=== PATIENT | male | born 1960 | race Caucasian/White ===

== ENCOUNTER 2018-05-21 13:32 | Emergency (ER) | payer OTHER ==
--- OUTSIDE RECORDS SUMMARY | 2018-05-21 13:43 | XMS REPORT | Summary of Care ---
:1960 Author Organization [facility] Address [address], [place] [address]- Encounter [facility]ent[employer]_cesar(FIN) [id number] Date(s): 02/12/16 - 03/31/[address] Professional Services provided by [facility] [place] [address]- Discharge Disposition: [facility] Facility Attending Physician: Keyur Pickett DO Admitting Physician: Keyur Pickett DO Vital Signs Most recent to oldest 1 2 3 [Reference Range]: Height 187.96 cm 187.96 cm 187.96 cm (03/02/16 8:27 AM) (03/02/16 3:46 AM) (03/01/16 11:11 PM) Current Weight 90.909 kg 90.909 kg 94.227 kg (03/31/16 5:51 AM) (03/29/16 5:17 AM) (03/16/16 6:29 AM) Temperature Oral 97.6 DegF 98.1 DegF 98.2 DegF [96.4-99.1 DegF] (03/31/16 8:30 AM) (03/31/16 5:53 AM) (03/30/16 7:15 PM) Blood Pressure 133/77 mmHg 133/97 mmHg 154/99 mmHg [90-140/60-90 mmHg] (03/31/16 8:30 AM) (03/31/16 5:53 AM) *HI* (03/30/16 11:54 PM) Respiratory Rate [14-20 20 BRMIN 18 BRMIN 18 BRMIN BRMIN] (03/30/16 11:54 PM) (03/30/16 7:15 PM) (03/30/16 4:15 AM) Peripheral Pulse Rate 87 bpm 85 bpm 86 bpm [60-100 bpm] (03/31/16 8:30 AM) (03/31/16 5:53 AM) (03/30/16 11:54 PM) Weight 100 kg 100 kg (02/12/16 5:11 PM) (02/12/16 11:24 AM) Body Mass Index 28.31 m2 28.31 m2 (02/12/16 5:11 PM) (02/12/16 11:24 AM) Problem List Condition Effective Dates Status Health Status Informant Alcohol abuse(Confirmed) Resolved Traumatic closed fx of eight or more Resolved ribs with minimal displacement(Confirmed) HTN (hypertension)(Confirmed) 2011 Resolved Hepatitis C(Confirmed) Resolved Allergies, Adverse Reactions, Alerts Substance Reaction Severity Status NKDA Active Medications Ancef 2 gm, Route: IVPB, ONCE, Dosing Weight 100, kg, Start date: 03/21/16 17:40:00 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, Duration: 1 dosesor times, Stop date: 03/21/16 17:40:00 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, Surgical Prophylaxis Only; For patients < 120 kg Start Date: 03/21/16 Stop Date: 03/21/16 Status: CompletedAncef 1 gm, Route: IV, ONCE, Dosing Weight 100, kg, Start date: 02/12/16 19:13:00 CDT , Stop date: 02/11/1619:13:00 CDT Start Date: 02/12/16 Stop Date: 02/12/16 Status: CompletedAncef 2 gm, Route: IVPB, ONCE, Dosing Weight 100, kg, Start date: 02/29/16 14:02:00 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, Duration: 1 dosesor times, Stop date: 02/29/16 14:02:00 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, Surgical Prophylaxis Only; For patients < 120 kg Start Date: 02/29/16 Stop Date: 02/29/16 Status: CompletedAncef 2 gm, Route: IVPB, ONCE, Dosing Weight 100, kg, Start date: 02/14/16 7:43:00 CDT , Duration: 1 doses or times, Stop date: 02/14/16 7:43:00 CDT, Surgical Prophylaxis Only; For patients < 120 kg Start Date: 02/14/16 Stop Date: 02/14/16 Status: CompletedAncef 1 gm, Route: IVPB, ONCE, Dosing Weight 100, kg, Start date: 02/14/16 11:42:00 CDT, Duration: 1 dosesor times, Stop date: 02/14/16 11:42:00 CDT, Surgical Prophylaxis Only; For patients < 120 kg Start Date: 02/14/16 Stop Date: 02/14/16 Status: CompletedAncef 2 gm, Route: IVPB, ONCE, Dosing Weight 100, kg, Start date: 02/22/16 10:47:00 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, Duration: 1 dosesor times, Stop date: 02/22/16 10:47:00 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, Surgical Prophylaxis Only; For patients < 120 kg Start Date: 02/22/16 Stop Date: 02/22/16 Status: CompletedAncef 2 gm, Route: IVPB, ONCE, Dosing Weight 100, kg, Start date: 03/06/16 12:12:00 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, Duration: 1 dosesor times, Stop date: 03/06/16 12:12:00 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, Surgical Prophylaxis Only; For patients < 120 kg Start Date: 03/06/16 Stop Date: 03/06/16 Status: CompletedAncef 1 gm, Route: IVPB, ONCE, Dosing Weight 100, kg, Start date: 02/22/16 13:47:00 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, Duration: 1 dosesor times, Stop date: 02/22/16 13:47:00 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, Surgical Prophylaxis Only; For patients < 120 kg Start Date: 02/22/16 Stop Date: 02/22/16 Status: CompletedAncef 2 gm, Route: IVPB, ONCE, Dosing Weight 100, kg, Start date: 03/03/16 8:04:00 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 , Duration: 1 doses or times, Stop date: 03/03/16 8:04:00 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, Surgical Prophylaxis Only; For patients < 120 kg Start Date: 03/03/16 Stop Date: 03/03/16 Status: CompletedANES acetaminophen 1,000 mg, Route: PO, Drug form: TAB, ONCE, Dosing Weight 100, kg, PRN Pain Score 1-3, Start date: 03/06/16 13:12:00 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, Duration: 1 doses or times, Stop date: Limited # of times Start Date: 03/06/16 Stop Date: 03/06/16 Status: DiscontinuedANES Enalaprilat 0.625 mg, 0.5 mL, Route: IVP, Drug form: INJ, Q5Min, Dosing Weight 100, kg, PRN Elevated BP, Start date: 02/13/16 10:06:00 CDT, Duration: 4 doses or times, Stop date: Limited # of times Notes: (Same as: Vasotec-IV) Start Date: 02/13/16 Stop Date: 02/13/16 Status: DiscontinuedANES esmolol 10 mg, 1 mL, Route: IVP, Drug form: INJ, Q5Min, Dosing Weight 100, kg, PRN Other -See Comment, Startdate: 02/13/16 10:06:00 CDT, Duration: 5 doses or times , Stop date: Limited # of times Notes: (Same as: Brevibloc) Start Date: 02/13/16 Stop Date: 02/13/16 Status: DiscontinuedANES flumazenil 0.2 mg, 2 mL, Route: IVP, Drug form: INJ, PRN, Dosing Weight 100, kg, PRN Benzodiazepine Reversal, Initial dose, Start date: 02/14/16 6:40:00 CDT, Duration: 30 day, Stop date: 03/15/16 5:39:00 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 Notes: (Same as: Romazicon) Start Date: 02/14/16 Stop Date: 02/14/16 Status: DiscontinuedANES flumazenil 0.2 mg, 2 mL, Route: IVP, Drug form: INJ, PRN, Dosing Weight 100, kg, PRN Benzodiazepine Reversal, Initial dose, Start date: 02/13/16 10:06:00 CDT, Duration: 30 day, Stop date: 03/14/16 9:05:00 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 Notes: (Same as: Romazicon) Start Date: 02/13/16 Stop Date: 02/13/16 Status: DiscontinuedANES flumazenil 0.2 mg, Route: IVP, PRN, Dosing Weight 100, kg, PRN Benzodiazepine Reversal, Initial dose, Start date: 03/14/16 8:36:00 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, Duration: 30 day, Stop date: 8:35:00 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 Start Date: 03/14/16 Stop Date: 03/14/16 Status: DiscontinuedANES flumazenil 0.2 mg, 2 mL, Route: IVP, Drug form: INJ, PRN, Dosing Weight 100, kg, PRN Benzodiazepine Reversal, Initial dose, Start date: 03/03/16 8:42:00 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, Duration: 30 day, Stop date: 04/02/16 8:41:00 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 Notes: (Same as: Romazicon) Start Date: 03/03/16 Stop Date: 03/03/16 Status: DiscontinuedANES flumazenil 0.2 mg, Route: IVP, PRN, Dosing Weight 100, kg, PRN Benzodiazepine Reversal, Initial dose, Start date: 03/06/16 13:12:00 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, Duration: 30 day, Stop date: 13:11:00 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 Start Date: 03/06/16 Stop Date: 03/06/16 Status: DiscontinuedANES flumazenil 0.2 mg, 2 mL, Route: IVP, Drug form: INJ, PRN, Dosing Weight 100, kg, PRN Benzodiazepine Reversal, Initial dose, Start date: 03/21/16 17:21:00 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, Duration: 30 day, Stop date: 04/20/16 17:20:00 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 Notes: (Same as: Romazicon) Start Date: 03/21/16 Stop Date: 03/21/16 Status: DiscontinuedANES flumazenil 0.2 mg, Route: IVP, PRN, Dosing Weight 100, kg, PRN Benzodiazepine Reversal, Initial dose, Start date: 03/11/16 18:08:00 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, Duration: 30 day, Stop date: 18:07:00 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 Start Date: 03/11/16 Stop Date: 03/11/16 Status: DiscontinuedANES flumazenil 0.2 mg, 2 mL, Route: IVP, Drug form: INJ, PRN, Dosing Weight 100, kg, PRN Benzodiazepine Reversal, Initial dose, Start date: 03/08/16 14:29:00 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, Duration: 30 day, Stop date: 04/07/16 14:28:00 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 Notes: (Same as: Romazicon) Start Date: 03/08/16 Stop Date: 03/08/16 Status: DiscontinuedANES hydrALAZINE 10 mg, 0.5 mL, Route: IVP, Drug form: INJ, Q20Min, Dosing Weight 100, kg, PRN Elevated BP, Start date: 02/14/16 6:40:00 CDT, Duration: 2 doses or times, Stop date: 02/15/16 0:00:00 CDT Notes: (Same as: Apresoline)Push over 5 minutes Start Date: 02/14/16 Stop Date: 02/14/16 Status: DiscontinuedANES hydrALAZINE 10 mg, 0.5 mL, Route: IVP, Drug form: INJ, Q20Min, Dosing Weight 100, kg, PRN Elevated BP, Start date: 02/13/16 10:06:00 CDT, Duration: 2 doses or times, Stop date: Limited # of times Notes: (Same as: Apresoline)Push over 5 minutes Start Date: 02/13/16 Stop Date: 02/13/16 Status: DiscontinuedANES hydrALAZINE 10 mg, 0.5 mL, Route: IVP, Drug form: INJ, Q20Min, Dosing Weight 100, kg, PRN Elevated BP, Start date: 03/03/16 8:42:00 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, Duration: 2 doses or times, Stop date: 03/04/16 0:00:00 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 Notes: (Same as: Apresoline)Push over 5 minutes Start Date: 03/03/16 Stop Date: 03/03/16 Status: DiscontinuedANES hydrALAZINE 10 mg, 0.5 mL, Route: IVP, Drug form: INJ, Q20Min, Dosing Weight 100, kg, PRN Elevated BP, Start date: 03/21/16 17:21:00 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, Duration: 2 doses or times, Stop date: Limited # of times Notes: (Same as: Apresoline)Push over 5 minutes Start Date: 03/21/16 Stop Date: 03/21/16 Status: DiscontinuedANES HYDROmorphone 0.5 mg, 0.25 mL, Route: IVP, Drug form: INJ, Q5Min, Dosing Weight 100, kg, PRN Pain Score 7-10, Start date: 02/14/16 6:40:00 CDT, Duration: 4 doses or times, Stop date: 02/15/16 0:00:00 CDT Notes: Same as Dilaudid Start Date: 02/14/16 Stop Date: 02/14/16 Status: DiscontinuedANES HYDROmorphone 0.5 mg, 0.25 mL, Route: IVP, Drug form: INJ, Q10Min, Dosing Weight 100, kg, PRN Pain Score 7-10, Start date: 02/13/16 10:06:00 CDT, Duration: 2 doses or times, Stop date: 02/14/16 0:00:00 CDT Notes: Same as Dilaudid Start Date: 02/13/16 Stop Date: 02/13/16 Status: CompletedANES HYDROmorphone 0.5 mg, Route: IVP, Q5Min, Dosing Weight 100, kg, PRN Pain Score 7-10, Start date: 03/14/16 8:36:00 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, Duration: 4 doses or times, Stop date: Limited # of times Start Date: 03/14/16 Stop Date: 03/14/16 Status: DiscontinuedANES HYDROmorphone 0.5 mg, 0.25 mL, Route: IVP, Drug form: INJ, Q5Min, Dosing Weight 100, kg, PRN Pain Score 7-10, Start date: 03/03/16 8:42:00 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, Duration: 4 doses or times, Stop date: 03/04/16 0:00:00 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 Notes: Same as Dilaudid Start Date: 03/03/16 Stop Date: 03/03/16 Status: DiscontinuedANES HYDROmorphone 0.5 mg, 0.25 mL, Route: IVP, Drug form: INJ, Q5Min, Dosing Weight 100, kg, PRN Pain Score 7-10, Start date: 03/21/16 17:21:00 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, Duration: 4 doses or times, Stop date: Limited # of times Notes: Same as Dilaudid Start Date: 03/21/16 Stop Date: 03/21/16 Status: DiscontinuedANES HYDROmorphone 0.5 mg, Route: IVP, Q5Min, Dosing Weight 100, kg, PRN Pain Score 7-10, Start date: 03/11/16 18:08:00CST, Duration: 4 doses or times, Stop date: Limited # of times Start Date: 03/11/16 Stop Date: 03/11/16 Status: DiscontinuedANES HYDROmorphone 0.5 mg, 0.25 mL, Route: IVP, Drug form: INJ, Q5Min, Dosing Weight 100, kg, PRN Pain Score 7-10, Start date: 03/08/16 14:29:00 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, Duration: 4 doses or times, Stop date: Limited # of times Notes: Same as Dilaudid Start Date: 03/08/16 Stop Date: 03/08/16 Status: DiscontinuedANES HYDROmorphone 0.5 mg, 0.25 mL, Route: IVP, Drug form: INJ, Q5Min, Dosing Weight 100, kg, PRN Pain Score 7-10, Start date: 02/14/16 10:00:00 CDT, Duration: 4 doses or times, Stop date: 02/15/16 0:00:00 CDT Notes: Same as Dilaudid Start Date: 02/14/16 Stop Date: 02/14/16 Status: DiscontinuedANES labetalol 10 mg, 2 mL, Route: IVP, Drug form: INJ, Q5Min, Dosing Weight 100, kg, PRN Elevated BP, Start date: 02/14/16 6:40:00 CDT, Duration: 5 doses or times, Stop date: 02/15/16 0:00:00 CDT Start Date: 02/14/16 Stop Date: 02/14/16 Status: DiscontinuedANES labetalol 10 mg, 2 mL, Route: IVP, Drug form: INJ, Q5Min, Dosing Weight 100, kg, PRN Elevated BP, Start date: 02/13/16 10:06:00 CDT, Duration: 5 doses or times, Stop date: Limited # of times Start Date: 02/13/16 Stop Date: 02/13/16 Status: DiscontinuedANES labetalol 10 mg, 2 mL, Route: IVP, Drug form: INJ, Q5Min, Dosing Weight 100, kg, PRN Elevated BP, Start date: 03/03/16 8:42:00 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, Duration: 5 doses or times, Stop date: 03/04/16 0:00:00 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 Start Date: 03/03/16 Stop Date: 03/03/16 Status: DiscontinuedANES labetalol 10 mg, 2 mL, Route: IVP, Drug form: INJ, Q5Min, Dosing Weight 100, kg, PRN Elevated BP, Start date: 03/21/16 17:21:00 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, Duration: 5 doses or times, Stop date: Limited # of times Start Date: 03/21/16 Stop Date: 03/21/16 Status: DiscontinuedANES metoprolol 1 mg, 1 mL, Route: IVP, Drug form: INJ, Q5Min, Dosing Weight 100, kg, PRN Other -See Comment, Start date: 02/13/16 10:06:00 CDT, Duration: 5 doses or times, Stop date: Limited # of times Notes: (Same as: Lopressor)Push over 2 minutes Start Date: 02/13/16 Stop Date: 02/13/16 Status: DiscontinuedANES morphine Sulfate 2 mg, 0.5 mL, Route: IVP, Drug form: SOLN, Q5Min, Dosing Weight 100, kg, PRN Pain Score 4-6, Start date: 03/03/16 8:42:00 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, Duration: 5 doses or times, Stop date: 03/04/16 0:00:00 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 Notes: (Same as:MORPhine Sulfate) Start Date: 03/03/16 Stop Date: 03/03/16 Status: DiscontinuedANES naloxone 0.4 mg, 1 mL, Route: IVP, Drug form: INJ, Q2MIN, Dosing Weight 100, kg, PRN Narcotic Reversal, Startdate: 02/14/16 6:40:00 CDT, Duration: 8 doses or times, Stop date: 02/15/16 0:00:00 CDT Notes: Same as Narcan Start Date: 02/14/16 Stop Date: 02/14/16 Status: DiscontinuedANES naloxone 0.4 mg, 1 mL, Route: IVP, Drug form: INJ, Q2MIN, Dosing Weight 100, kg, PRN Narcotic Reversal, Startdate: 02/13/16 10:06:00 CDT, Duration: 8 doses or times , Stop date: Limited # of times Notes: Same as Narcan Start Date: 02/13/16 Stop Date: 02/13/16 Status: DiscontinuedANES naloxone 0.4 mg, Route: IVP, Q2MIN, Dosing Weight 100, kg, PRN Narcotic Reversal, Start date: 03/14/16 8:36:00 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, Duration: 8 doses or times, Stop date: Limited # of times Start Date: 03/14/16 Stop Date: 03/14/16 Status: DiscontinuedANES naloxone 0.4 mg, 1 mL, Route: IVP, Drug form: INJ, Q2MIN, Dosing Weight 100, kg, PRN Narcotic Reversal, Startdate: 03/03/16 8:42:00 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, Duration: 8 doses or times, Stop date: 03/04/16 0:00:00 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 Notes: Same as Narcan Start Date: 03/03/16 Stop Date: 03/03/16 Status: DiscontinuedANES naloxone 0.4 mg, Route: IVP, Q2MIN, Dosing Weight 100, kg, PRN Narcotic Reversal, Start date: 03/06/16 13:12:00 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, Duration: 8 doses or times, Stop date: Limited # of times Start Date: 03/06/16 Stop Date: 03/06/16 Status: DiscontinuedANES naloxone 0.4 mg, 1 mL, Route: IVP, Drug form: INJ, Q2MIN, Dosing Weight 100, kg, PRN Narcotic Reversal, Startdate: 03/21/16 17:21:00 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, Duration: 8 doses or times , Stop date: Limited # of times Notes: Same as Narcan Start Date: 03/21/16 Stop Date: 03/21/16 Status: DiscontinuedANES naloxone 0.4 mg, Route: IVP, Q2MIN, Dosing Weight 100, kg, PRN Narcotic Reversal, Start date: 03/11/16 18:08:00 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, Duration: 8 doses or times, Stop date: Limited # of times Start Date: 03/11/16 Stop Date: 03/11/16 Status: DiscontinuedANES naloxone 0.4 mg, 1 mL, Route: IVP, Drug form: INJ, Q2MIN, Dosing Weight 100, kg, PRN Narcotic Reversal, Startdate: 03/08/16 14:29:00 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, Duration: 8 doses or times , Stop date: Limited # of times Notes: Same as Narcan Start Date: 03/08/16 Stop Date: 03/08/16 Status: DiscontinuedANES ondansetron 4 mg, 2 mL, Route: IVP, Drug form: INJ, ONCE, Dosing Weight 100, kg, PRN Nausea & Vomiting, Start date: 02/14/16 6:40:00 CDT Notes: (Same as: Martinez) MEDICATION WASTE Product Size: 4 mgProduct Wasted: ___ mg Start Date: 02/14/16 Stop Date: 02/14/16 Status: DiscontinuedANES ondansetron 4 mg, 2 mL, Route: IVP, Drug form: INJ, ONCE, Dosing Weight 100, kg, PRN Nausea & Vomiting, Start date: 02/13/16 10:06:00 CDT Notes: (Same as: Martinez) MEDICATION WASTE Product Size: 4 mgProduct Wasted: _0_ mg Start Date: 02/13/16 Stop Date: 02/13/16 Status: DiscontinuedANES ondansetron 4 mg, Route: IVP, ONCE, Dosing Weight 100, kg, PRN Nausea & Vomiting, Start date: 03/14/16 8:36:00 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 Start Date: 03/14/16 Stop Date: 03/14/16 Status: DiscontinuedANES ondansetron 4 mg, Route: IVP, ONCE, Dosing Weight 100, kg, PRN Nausea & Vomiting, Start date: 03/06/16 13:12:00 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 Start Date: 03/06/16 Stop Date: 03/06/16 Status: DiscontinuedANES ondansetron 4 mg, 2 mL, Route: IVP, Drug form: INJ, ONCE, Dosing Weight 100, kg, PRN Nausea & Vomiting, Start date: 03/03/16 8:42:00 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 Notes: (Same as: Martinez) MEDICATION WASTE Product Size: 4 mgProduct Wasted: ___ mg Start Date: 03/03/16 Stop Date: 03/03/16 Status: DiscontinuedANES ondansetron 4 mg, 2 mL, Route: IVP, Drug form: INJ, ONCE, Dosing Weight 100, kg, PRN Nausea & Vomiting, Start date: 03/21/16 17:21:00 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 Notes: (Same as: Martinez) MEDICATION WASTE Product Size: 4 mgProduct Wasted: ___ mg Start Date: 03/21/16 Stop Date: 03/21/16 Status: DiscontinuedANES ondansetron 4 mg, Route: IVP, ONCE, Dosing Weight 100, kg, PRN Nausea & Vomiting, Start date: 03/11/16 18:08:00 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 Start Date: 03/11/16 Stop Date: 03/11/16 Status: DiscontinuedANES ondansetron 4 mg, 2 mL, Route: IVP, Drug form: INJ, ONCE, Dosing Weight 100, kg, PRN Nausea & Vomiting, Start date: 03/08/16 14:29:00 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 Notes: (Same as: Zofran) MEDICATION WASTE Product Size: 4 mgProduct Wasted: ___ mg Start Date: 03/08/16 Stop Date: 03/08/16 Status: DiscontinuedANES ondansetron 4 mg, 2 mL, Route: IVP, Drug form: INJ, ONCE, Dosing Weight 100, kg, PRN Nausea & Vomiting, Start date: 02/14/16 10:00:00 CDT Notes: (Same as: Zofran) MEDICATION WASTE Product Size: 4 mgProduct Wasted: ___ mg Start Date: 02/14/16 Stop Date: 02/14/16 Status: DiscontinuedANES oxyCODONE 5 mg, 1 tab, Route: PO, Drug form: TAB, Q4H, Dosing Weight 100, kg, PRN Pain Score 4-6, Start date: 02/14/16 6:40:00 CDT, Duration: 30 day, Stop date: 6:39:00 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 Notes: (Same as: Roxicodone) Start Date: 02/14/16 Stop Date: 02/14/16 Status: DiscontinuedANES oxyCODONE 5 mg, 1 tab, Route: PO, Drug form: TAB, Q4H, Dosing Weight 100, kg, PRN Pain Score 4-6, Start date: 03/21/16 17:21:00 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, Duration: 30 day, Stop date: 04/20 17:20:00 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 Notes: (Same as: Roxicodone) Start Date: 03/21/16 Stop Date: 03/21/16 Status: DiscontinuedANES oxyCODONE 5 mg, 1 tab, Route: PO, Drug form: TAB, Q4H, Dosing Weight 100, kg, PRN Pain Score 4-6, Start date: 02/14/16 10:00:00 CDT, Duration: 1 day, Stop date: 9:59:00 CDT Notes: (Same as: Roxicodone) Start Date: 02/14/16 Stop Date: 02/14/16 Status: DiscontinuedAtivan 4 mg, 2 mL, Route: IVP, Drug form: INJ, ONCE, Dosing Weight 100, kg, Start date : 02/14/16 19:02:00 CDT, Stop date: 02/14/16 19:02:00 CDT Notes: (Same as: Ativan) Start Date: 02/14/16 Stop Date: 02/14/16 Status: DiscontinuedAtivan 2 mg, 1 mL, Route: IVP, Drug form: INJ, Q4H, Dosing Weight 100, kg, PRN Agitation, Start date: 02/17/16 9:44:00 CDT, Duration: 30 day, Stop date: 9:43:00 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 Notes: (Same as: Ativan) Start Date: 02/17/16 Stop Date: 02/20/16 Status: DiscontinuedAtivan 2 mg, 1 mL, Route: IVP, Drug form: INJ, Q15Min, Dosing Weight 100, kg, PRN Agitation, Start date: 02/14/16 23:50:00 CDT, Duration: 30 day, Stop date: 03/15 22:49:00 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 Notes: (Same as: Ativan) Start Date: 02/14/16 Stop Date: 02/17/16 Status: DiscontinuedAtivan 2 mg, 1 mL, Route: IVP, Drug form: INJ, Q3H, Dosing Weight 100, kg, PRN Anxiety , Start date: 02/13/16 9:58:00 CDT, Duration: 30 day, Stop date: 03/14/16 9:57: 00 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 Notes: (Same as: Ativan) Start Date: 02/13/16 Stop Date: 02/14/16 Status: DiscontinuedBenadryl 25 mg, 0.5 mL, Route: IVP, Drug form: INJ, ONCE, Dosing Weight 100, kg, PRN Insomnia, Start date: 02/26/16 23:08:00 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 Notes: (Same as: Benadryl) Start Date: 02/26/16 Stop Date: 02/26/16 Status: CompletedBenadryl 50 mg, 1 mL, Route: IV, Drug form: INJ, ONCE, Dosing Weight 100, kg, PRN Agitation, Start date: 03/01/16 11:49:00 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 Notes: (Same as: Benadryl) Start Date: 03/01/16 Stop Date: 03/01/16 Status: CompletedBenadryl 25 mg, 1 cap, Route: PO, Drug form: CAP, Bedtime, Dosing Weight 100, kg, PRN Insomnia, Start date: 02/26/16 23:08:00 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, Duration: 30 day, Stop date: 23:07:00 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 Notes: (Same as: Benadryl) Start Date: 02/26/16 Stop Date: 02/28/16 Status: Discontinuedbisacodyl 10 mg, 1 supp, Route: MD, Drug form: SUPP, Daily, Dosing Weight 100, kg, PRN Constipation, Start date: 02/22/16 8:18:00 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, Duration: 30 day, Stop date: 11/29 8:17:00 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 Notes: (Same As: Dulcolax, Bisco-Lax) Start Date: 02/22/16 Stop Date: 03/02/16 Status: Discontinuedbisacodyl 10 mg, 1 supp, Route: MD, Drug form: SUPP, ONCE, Dosing Weight 100, kg, Start date: 02/16/16 7:46:00CDT, Stop date: 02/16/16 7:46:00 CDT Notes: (Same As: Dulcolax, Bisco-Lax) Start Date: 02/16/16 Stop Date: 02/16/16 Status: Completedcalcium carbonate 500 mg, 1 tab, Route: NG, Drug form: CHEWTAB, ONCE, Dosing Weight 100, kg, Start date: 02/17/16 11:18:00 CDT, Stop date: 02/17/16 11:18:00 CDT Notes: (Same As: Pina)Calcium Carbonate 500 tk=083 mg elemental calcium Dose=_ mg calcium carbonate ( mg elemental calcium) Start Date: 02/17/16 Stop Date: 02/17/16 Status: Completedcalcium chloride + sodium chloride 0.9% INJ 100 mL 2,000 mg, 20 mL, Route: IVPB, ONCE, Dosing Weight 100, kg, Start date: 02/13/16 2:32:00 CDT, Stop date: 02/13/16 2:32:00 CDT Notes: WASTE: F/P - Sink; E - Municipal Trash Bin Start Date: 02/13/16 Stop Date: 02/13/16 Status: CompletedceFAZolin (SCIP) 2 gm, Route: IVPB, Drug form: INJ, ONCE, Dosing Weight 100, kg, Start date: 06/29 7:58:00 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, Stop date: 03/18/16 7:58:00 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 Start Date: 03/18/16 Stop Date: 03/18/16 Status: CompletedcefTAZidime 1 gm, Route: IVPB, Drug form: PDR/INJ, ABXQ6H, Dosing Weight 100, kg, Start date : 02/23/16 10:00:00 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, Stop date: 03/01/16 10:00:00 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 Notes: (Same as: Gino) MEDICATION WASTE Product Size: 1000 mgProduct Wasted: _0_ mg Start Date: 02/23/16 Stop Date: 03/01/16 Status: CompletedcloNIDine 0.1 mg, 1 tab, Route: PO, Drug form: TAB, Q4H, Dosing Weight 100, kg, Start date : 02/15/16 9:00:00 CDT, Duration: 30 day, Stop date: 03/16/16 8:00:00 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 Notes: (Same As: Cataprpaz) Start Date: 02/15/16 Stop Date: 02/16/16 Status: DiscontinuedcloNIDine 0.3 mg, 1 tab, Route: PO, Drug form: TAB, Q8H, Dosing Weight 100, kg, Start date : 02/16/16 16:00:00 CDT, Stop date: 03/17/16 8:00:00 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 Notes: (Same As: Catapres) Start Date: 02/16/16 Stop Date: 02/20/16 Status: DiscontinuedcloNIDine 0.1 mg oral tablet 0.1 mg, 1 tab, Route: PO, Drug form: TAB, Q8H-05, Dosing Weight 100, kg, Start date: 03/12/16 16:00:00 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, Stop date: 04/11/16 5:00:00 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 Notes: (Same As: [facility]) Start Date: 03/12/16 Stop Date: 03/28/16 Status: DiscontinuedcloNIDine 0.1 mg oral tablet 0.1 mg, 1 tab, Route: PO, Drug form: TAB, Q12H, Dosing Weight 100, kg, Start date: 03/28/16 21:00:00CST, Stop date: 04/27/16 9:00:00 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 Notes: (Same As: [facility]) Start Date: 03/28/16 Stop Date: 03/29/16 Status: DiscontinuedcloNIDine 0.2 mg oral tablet 0.3 mg, 1 tab, Route: PO, Drug form: TAB, Q8H, Dosing Weight 100, kg, Start date : 02/24/16 0:00:00 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, Duration: 30 day, Stop date: 03/24/16 16:00:00 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 Notes: (Same As: [facility]) Start Date: 02/24/16 Stop Date: 02/24/16 Status: DiscontinuedcloNIDine 0.2 mg oral tablet 0.2 mg, 1 tab, Route: PO, Drug form: TAB, Q8H, Dosing Weight 100, kg, Start date : 02/22/16 8:15:00 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, Duration: 30 day, Stop date: 03/23/16 8:00:00 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 Notes: (Same As: [facility]) Start Date: 02/22/16 Stop Date: 02/23/16 Status: DiscontinuedcloNIDine 0.3 mg oral tablet 0.3 mg, 1 tab, Route: PO, Drug form: TAB, Q6H, Dosing Weight 100, kg, Start date : 02/24/16 12:00:00 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, Duration: 30 day, Stop date: 03/25/16 6:00:00 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 Notes: (Same As: [employer]) Start Date: 02/24/16 Stop Date: 02/29/16 Status: DiscontinuedcloNIDine 0.3 mg oral tablet 0.3 mg, 1 tab, Route: PO, Drug form: TAB, Q8H, Dosing Weight 100, kg, Start date : 02/29/16 16:00:00 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, Duration: 30 day, Stop date: 03/30/16 8:00:00 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 Notes: (Same As: [facility]) Start Date: 02/29/16 Stop Date: 03/12/16 Status: DiscontinuedcloNIDine 0.3 mg oral tablet 0.2 mg, Route: PO, Drug form: TAB, Q8H, Dosing Weight 100, kg, Start date: 02/19 9:00:00 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, Duration: 30 day, Stop date: 03/21/16 8:00:00 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 Notes: (Same As: [facility]) Start Date: 02/20/16 Stop Date: 02/22/16 Status: DiscontinuedDakins Solution 1 appl, Route: TOP, Daily, Drug form: SOLN, Start date: 02/29/16 9:00:00 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, Duration: 30 day, Stopdate: 03/29/16 9:00:00 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 Notes: (Dakin's (0.125%=1/4 strength) 473ml top SOLN) For external use only. Note: quarter strength=0.125% sodium hypochlorite. Start Date: 02/29/16 Stop Date: 03/20/16 Status: DiscontinuedDextrose 50% Syringe 12.5 gm, 25 mL, Route: IVP, Drug Form: INJ, Dosing Weight 100, kg, PRN, PRN Abnormal Lab Result, Start date: 02/15/16 2:40:00 CDT, Duration: 30 day, Stop date: 03/16/16 1:39:00 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, For FSBG 40 mg/dL -60 mg/dL Start Date: 02/15/16 Stop Date: 02/16/16 Status: DiscontinuedDextrose 50% Syringe 25 gm, 50 mL, Route: IVP, Drug Form: INJ, Dosing Weight 100, kg, PRN, PRN Abnormal Lab Result, Startdate: 02/15/16 2:40:00 CDT, Duration: 30 day, Stop date: 03/16/16 1:39:00 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, For FSBG < 40 mg/dL Start Date: 02/15/16 Stop Date: 02/16/16 Status: DiscontinuedDextrose 50% Syringe 12.5 gm, 25 mL, Route: IVP, Drug Form: INJ, Dosing Weight 100, kg, PRN, PRN Abnormal Lab Result, Start date: 02/22/16 17:02:00 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, Duration: 30 day, Stop date: 03/23/16 17:01:00 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, For FSBG 40 mg/dL- 60 mg/dL Start Date: 02/22/16 Stop Date: 02/23/16 Status: DiscontinuedDextrose 50% Syringe 25 gm, 50 mL, Route: IVP, Drug Form: INJ, Dosing Weight 100, kg, PRN, PRN Abnormal Lab Result, Startdate: 02/22/16 17:02:00 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, Duration: 30 day, Stop date: 03/23/16 17:01:00 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, For FSBG < 40 mg/dL Start Date: 02/22/16 Stop Date: 02/23/16 Status: Discontinueddiazepam 10 mg, 2 mL, Route: IVP, Drug form: INJ, Q10Min, Dosing Weight 100, kg, PRN Agitation, Start date: 02/23/16 14:11:00 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, Duration: 30 day, Stop date: 03/24 14:10:00 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 Notes: (Same as: Valium)WASTE: F/P - Black; E - White/Blue Start Date: 02/23/16 Stop Date: 02/24/16 Status: Discontinueddiazepam 10 mg, Route: IVP, Drug form: INJ, Q10Min, Dosing Weight 100, kg, PRN Anxiety, Start date: 02/23/16 14:10:00 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, Duration: 30 day, Stop date: 03/24/16 14:09: 00 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 Start Date: 02/23/16 Stop Date: 02/23/16 Status: DiscontinuedDilaudid 0.5 mg, 0.25 mL, Route: IVP, Drug form: INJ, ONCE, Dosing Weight 100, kg, Priority: STAT, Start date: 02/13/16 16:26:00 CDT, Stop date: 02/13/16 16:26:00 CDT Notes: Same as Dilaudid Start Date: 02/13/16 Stop Date: 02/13/16 Status: CompletedDilaudid 0.5 mg, 0.25 mL, Route: IVP, Drug form: INJ, Q5Min, Dosing Weight 100, kg, PRN Pain Score 7-10, Start date: 03/18/16 9:21:00 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, Duration: 4 doses or times, Stop date: Limited # of times Notes: Same as Dilaudid Start Date: 03/18/16 Stop Date: 03/18/16 Status: DiscontinuedDilaudid 1 mg, Route: IVP, ONCE, Dosing Weight 100, kg, Priority: STAT, Start date: 02/11 16:15:00 CDT, Stop date: 02/12/16 16:15:00 CDT Start Date: 02/12/16 Stop Date: 02/12/16 Status: CompletedDilaudid 0.5 mg, 0.25 mL, Route: IVP, Drug form: INJ, ONCE, Dosing Weight 100, kg, for wound vac change.thanks, Priority: STAT, Start date: 03/27/16 15:27:00 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, Stop date: 03/27/16 15:27:00 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 Notes: Same as Dilaudid Start Date: 03/27/16 Stop Date: 03/27/16 Status: CompletedDilaudid 0.5 mg, 0.25 mL, Route: IVP, Drug form: INJ, ONCE, Dosing Weight 100, kg, Priority: STAT, Start date: 02/12/16 21:32:00 CDT, Stop date: 02/12/16 21:32:00 CDT Notes: (Same as: Dilaudid) Start Date: 02/12/16 Stop Date: 02/12/16 Status: CompletedDilaudid 1 mg, 0.5 mL, Route: IVP, Drug form: INJ, ONCE, Dosing Weight 100, kg, Priority : STAT, Start date: 02/12/16 19:14:00 CDT, Stop date: 02/12/16 19:14:00 CDT Notes: Same as Dilaudid Start Date: 02/12/16 Stop Date: 02/12/16 Status: CompletedDilaudid 0.5 mg, Route: IVP, ONCE, Dosing Weight 100, kg, Priority: STAT, Start date: 14:45:00 CDT, Stop date: 02/12/16 14:45:00 CDT Start Date: 02/12/16 Stop Date: 02/12/16 Status: CompletedDilaudid 0.5 mg, 0.25 mL, Route: IV, Drug form: INJ, ONCE, Dosing Weight 100, kg, Start date: 03/24/16 12:11:00 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, Stop date: 03/24/16 12:11:00 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 Notes: Same as Dilaudid Start Date: 03/24/16 Stop Date: 03/24/16 Status: Completeddocusate 100 mg, 1 cap, Route: PO, Drug form: CAP, Daily, Dosing Weight 100, kg, Start date: 03/20/16 9:00:00CST, Duration: 30 day, Stop date: 04/18/16 9:00:00 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 Notes: (Same as: Colace) (Do Not Crush) Start Date: 03/20/16 Stop Date: 03/31/16 Status: Discontinueddocusate 100 mg, 10 mL, Route: PO, Drug form: LIQ, Q12H, Dosing Weight 100, kg, Start date: 02/23/16 21:00:00CST, Duration: 30 day, Stop date: 03/24/16 9:00:00 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 Notes: (Same as: Colace) Start Date: 02/23/16 Stop Date: 02/29/16 Status: Discontinueddocusate 100 mg, 10 mL, Route: PO, Drug form: LIQ, Daily, Dosing Weight 100, kg, Start date: 03/01/16 9:00:00CST, Duration: 30 day, Stop date: 03/30/16 9:00:00 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 Notes: (Same as: Colace) Start Date: 03/01/16 Stop Date: 03/02/16 Status: Discontinueddocusate sodium 100 mg oral capsule 100 mg, 1 cap, Route: PO, Drug form: CAP, BID, Dosing Weight 100, kg, Start date : 02/12/16 17:00:00 CDT, Duration: 30 day, Stop date: 03/13/16 9:00:00 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 Notes: (Same as: Colace) (Do Not Crush) Start Date: 02/12/16 Stop Date: 02/23/16 Status: Discontinueddocusate sodium 100 mg oral capsule 100 mg=1 cap, PO, Daily, 0 Refill(s) Start Date: 03/31/16 Status: SuspendedElectrolyte Solution 1000 mL 1,000 mL, Rate: 100 ml/hr, Infuse over: 10 hr, Route: IV, Dosing Weight 100 kg, Total Volume: 1,000,Start date: 03/14/16 0:19:00 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, Duration: 30 day, Stop date: 04/13/16 0:18:00 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 Start Date: 03/14/16 Stop Date: 03/14/16 Status: Discontinuedenoxaparin 40 mg/0.4 mL subcutaneous solution 40 mg=0.4 mL, SUB-Q, [id number], 0 Refill(s) Start Date: 03/31/16 Status: SuspendedExparel 20 mL, Route: InFILtration(local), Drug Form: INJ, Dosing Weight 100, kg, ONCE, Start date: 167:25:00 CDT, Stop date: 02/14/16 7:25:00 CDT Notes: (Same as: Exparel) NOT FOR IV use Postoperative analgesia: Infiltration (local): Dose is based on surgical site and volume required to cover the area (in general, the maximum total dose is 266 mg).Bunionectomy: 7 mL into the tissues surrounding the osteotomy and 1 mL into the subcutaneous tissue of the surgical site (total dose=8 mL [106 mg])Hemorrhoidectomy: 30 mL ( 20 mL vial diluted with 10 mL NS) divided and administered as 6 injections of 5 mL each (total dose=30 mL [266 mg]) Start Date: 02/14/16 Stop Date: 02/14/16 Status: CompletedfentaNYL 50 microgram, 1 mL, Route: IV, Drug form: INJ, ONCE, Dosing Weight 100, kg, PRN Pain Score 7-10, Start date: 02/29/16 20:34:00 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, Pediatric Dosing; For procedure; > 50 kg Notes: (Same as: Sublimaze) Preservative free. Start Date: 02/29/16 Stop Date: 03/01/16 Status: CompletedfentaNYL 50 microgram, Route: IV, ONCE, Dosing Weight 100, kg, Start date: 03/01/16 11:15 :00 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, Stop date: 03/01/16 11:15:00 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 Start Date: 03/01/16 Stop Date: 03/01/16 Status: CompletedfentaNYL 50 microgram, Route: IV, ONCE, Dosing Weight 100, kg, Start date: 02/12/16 19:14 :00 CDT, Stop date: 02/12/16 19:14:00 CDT Start Date: 02/12/16 Stop Date: 02/12/16 Status: CompletedfentaNYL 100 microgram, Route: IV, ONCE, Dosing Weight 100, kg, Start date: 02/12/16 19: 13:00 CDT, Stop date:02/12/16 19:13:00 CDT Start Date: 02/12/16 Stop Date: 02/12/16 Status: CompletedfentaNYL 50 microgram, 1 mL, Route: IV, Drug form: INJ, PRN, Dosing Weight 100, kg, PRN Pain Score 7-10, Post-Op PACU, Start date: 03/11/16 18:08:00 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, Duration: 30 day, Stop date: 04/10/16 18:07:00 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, Pediatric Dosing; For procedure; > 50 kg Notes: (Same as: Sublimaze) Preservative free. Start Date: 03/11/16 Stop Date: 03/11/16 Status: DiscontinuedfentaNYL 1000microgram/20ml drip (pyxis) 1,000 microgram 1,000 microgram, 20 mL, Rate: Titrate, Start Dose: 50 microgram/hr, Titration: Titrate by 25 micrograms/hour every 15 minutes, Goal(s): RASS 0, Max Dose: 300 mcg/hr, Route: IV, Dosing Weight 100 kg, Total Volume: 20, Start date: 02/22/16 17:02:00 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,... Start Date: 02/22/16 Stop Date: 02/23/16 Status: DiscontinuedfentaNYL 1000microgram/20ml drip (pyxis) 1,000 microgram 1,000 microgram, 20 mL, Rate: Titrate, Start Dose: 50 microgram/hr, Titration: Titrate by 25 micrograms/hour every 15 minutes, Goal(s): RASS 0, Max Dose: 300 mcg/hr, Route: IV, Dosing Weight 100 kg, Total Volume: 20, Start date: 02/25/16 10:59:00 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,... Start Date: 02/25/16 Stop Date: 02/27/16 Status: DiscontinuedFlomax 0.4 mg, 1 cap, Route: PO, Drug form: CAP, After Dinner, Dosing Weight 100, kg, Start date: 02/26/16 17:00:00 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, Duration: 30 day, Stop date: 03/26/16 17:00: 00 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 Notes: (Same As: Flomax) "Do Not Crush" Start Date: 02/26/16 Stop Date: 02/26/16 Status: CanceledFlomax 0.4 mg, 1 cap, Route: PO, Drug form: CAP, After Dinner, Dosing Weight 100, kg, Start date: 03/07/16 17:00:00 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, Duration: 30 day, Stop date: 04/05/16 17:00: 00 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 Notes: (Same As: Flomax) "Do Not Crush" Start Date: 03/07/16 Stop Date: 03/28/16 Status: Discontinuedflumazenil 0.2 mg, 2 mL, Route: IVP, Drug form: INJ, PRN, Dosing Weight 100, kg, PRN Benzodiazepine Reversal, Initial dose, Start date: 03/18/16 9:21:00 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, Duration: 1 day, Stop date: 03/19/16 9:20:00 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 Notes: (Same as: Romazicon) Start Date: 03/18/16 Stop Date: 03/18/16 Status: Discontinuedfolic acid 1 mg, 1 tab, Route: PO, Drug form: TAB, Daily, Dosing Weight 100, kg, Start date : 02/12/16 17:13:00 CDT, Duration: 30 day, Stop date: 03/13/16 9:00:00 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 Notes: (Same as: Folvite) Start Date: 02/12/16 Stop Date: 02/16/16 Status: Discontinuedfolic acid 1 mg, 1 tab, Route: PO, Drug form: TAB, Daily, Dosing Weight 100, kg, Start date : 02/19/16 10:30:00 CDT, Duration: 5 day, Stop date: 02/24/16 9:00:00 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 Notes: (Same as: Folvite) Start Date: 02/19/16 Stop Date: 02/19/16 Status: Discontinuedgabapentin 100 mg, 1 cap, Route: PO, Drug form: CAP, Q8H, Dosing Weight 100, kg, Start date : 02/15/16 9:30:00 CDT, Duration: 30 day, Stop date: 03/16/16 8:00:00 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 Notes: (Same as: Neurontin) Start Date: 02/15/16 Stop Date: 02/17/16 Status: Discontinuedgabapentin 800 mg, 2 cap, Route: PO, Drug form: CAP, Q8H, Dosing Weight 100, kg, Start date : 03/20/16 17:00:00 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, Duration: 30 day, Stop date: 04/19/16 16:00:00 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 Notes: (Same as: Neurontin) Start Date: 03/20/16 Stop Date: 03/31/16 Status: Discontinuedgabapentin 300 mg oral capsule 300 mg, 1 cap, Route: PO, Drug form: CAP, Q8H, Dosing Weight 100, kg, (CrCl > 60 ml/min), Start date: 03/18/16 14:15:00 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, Duration: 30 day, Stop date: 06/02 8:00:00 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 Notes: (Same as: Neurontin) Start Date: 03/18/16 Stop Date: 03/19/16 Status: Discontinuedgabapentin 300 mg oral capsule 300 mg, Route: PO, Drug form: CAP, Q8H, Dosing Weight 100, kg, (CrCl > 60 ml/min ), Start date: 03/18/16 16:00:00 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, Duration: 30 day, Stop date: 04/17/16 8:00 :00 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 Start Date: 03/18/16 Stop Date: 03/18/16 Status: Canceledgabapentin 300 mg oral capsule 600 mg, 2 cap, Route: PO, Drug form: CAP, Q8H, Dosing Weight 100, kg, (CrCl > 60 ml/min), Start date: 03/20/16 0:00:00 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, Duration: 30 day, Stop date: 04/18 16:00:00 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 Notes: (Same as: Neurontin) Start Date: 03/20/16 Stop Date: 03/20/16 Status: Discontinuedgabapentin 400 mg oral capsule 800 mg=2 cap, PO, Q8H, 0 Refill(s) Start Date: 03/31/16 Status: Suspendedgabapentin 800 mg oral tablet PO, Q8H, 0 Refill(s) Start Date: 03/31/16 Stop Date: 03/31/16 Status: DiscontinuedHaldol 5 mg, 1 mL, Route: IM, Drug form: INJ, ONCE, Dosing Weight 100, kg, PRN Agitation, Start date: 03/01/16 11:49:00 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 Notes: (Same as: Haldol) Start Date: 03/01/16 Stop Date: 03/31/16 Status: DiscontinuedHaldol 2 mg, Route: PO, Drug form: TAB, TID, Dosing Weight 100, kg, PRN Anxiety, Start date: 02/24/16 21:43:00 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, Duration: 30 day, Stop date: 03/25/16 21:42:00 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 Start Date: 02/24/16 Stop Date: 02/24/16 Status: DiscontinuedHaldol 2 mg, 1 tab, Route: PO, Drug form: TAB, TID, Dosing Weight 100, kg, PRN Anxiety , Start date: 02/24/16 21:44:00 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, Duration: 30 day, Stop date: 03/25/16 21:43 :00 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 Notes: (Same as: Haldol) Start Date: 02/24/16 Stop Date: 03/20/16 Status: DiscontinuedHaldol 5 mg, 1 mL, Route: IM, Drug form: INJ, ONCE, Dosing Weight 100, kg, Priority: STAT, Start date: 02/14/16 19:15:00 CDT, Stop date: 02/14/16 19:15:00 CDT Notes: (Same as: Haldol) Start Date: 02/14/16 Stop Date: 02/14/16 Status: CompletedHaldol 5 mg, 1 mL, Route: IM, Drug form: INJ, Q4H, Dosing Weight 100, kg, PRN Anxiety, Start date: 02/13/1619:14:00 CDT, Duration: 30 day, Stop date: 03/15/16 19:13: 00 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 Notes: (Same as: Haldol) Start Date: 02/14/16 Stop Date: 02/18/16 Status: DiscontinuedHaldol 2 mg, Route: IM, Q4H, Dosing Weight 100, kg, Start date: 02/25/16 0:00:00 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, Duration: 30 day, Stop date: 03/25/16 20:00:00 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 Start Date: 02/25/16 Stop Date: 02/24/16 Status: CanceledHaldol 2 mg, 1 tab, Route: PO, Drug form: TAB, TID, Dosing Weight 100, kg, PRN as needed for agitation, Start date: 03/20/16 14:34:00 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, Duration: 30 day, Stop date: 04/19/16 14:33:00 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 Notes: (Same as: Haldol) Start Date: 03/20/16 Stop Date: 03/31/16 Status: Discontinuedhaloperidol 2 mg oral tablet 2 mg=1 tab, PO, TID, PRN as needed for agitation, 0 Refill(s) Start Date: 03/31/16 Status: Suspendedheparin 5,000 unit, 1 mL, Route: SUB-Q, Drug form: INJ, Q8H, Dosing Weight 100, kg, Start date: 02/13/16 18:00:00 CDT, Duration: 30 day, Stop date: 03/14/16 16:00: 00 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 Notes: porcine heparin Start Date: 02/13/16 Stop Date: 02/15/16 Status: DiscontinuedHurricaine 20% mucous membrane spray 1 spray, Route: TOP, Q6H, Drug form: SPRY, PRN Mouth Pain, Start date: 03/14/16 16:25:00 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, Duration: 30 day, Stop date: 04/13/16 16:24:00 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 Start Date: 03/14/16 Stop Date: 03/14/16 Status: DiscontinuedHurricaine 20% mucous membrane spray 1 spray, Route: TOP, Q6H, Drug form: SPRY, PRN Mouth Pain, Start date: 03/14/16 12:30:00 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, Duration: 30 day, Stop date: 04/13/16 12:29:00 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 Notes: (Same As: Hurricaine)WASTE: F/P - Black; E - Municipal Trash Bin FOR ORAL USE Start Date: 03/14/16 Stop Date: 03/14/16 Status: DiscontinuedhydrALAZINE 10 mg, 0.5 mL, Route: IVP, Drug form: INJ, Q20Min, Dosing Weight 100, kg, PRN Elevated BP, Start date: 03/18/16 9:21:00 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, Duration: 2 doses or times, Stop date: Limited # of times Notes: (Same as: Apresoline)Push over 5 minutes Start Date: 03/18/16 Stop Date: 03/18/16 Status: DiscontinuedhydrALAZINE 10 mg, 0.5 mL, Route: IV, Drug form: INJ, Q4H, Dosing Weight 100, kg, PRN Hypertension, Start date: 02/20/16 3:27:00 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, Stop date: 03/21/16 3:26:00 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 Notes: (Same as: Apresoline)Push over 5 minutes Start Date: 02/20/16 Stop Date: 03/15/16 Status: DiscontinuedInderal 10 mg, 1 tab, Route: PO, Drug form: TAB, Q8H, Dosing Weight 100, kg, Start date : 03/20/16 0:45:00 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, Duration: 30 day, Stop date: 04/19/16 0:00:00 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 Notes: Give with food.(Same as: Inderal) Start Date: 03/20/16 Stop Date: 03/31/16 Status: Discontinuedinfluenza virus vaccine, inactivated 0.5 mL, Route: IM, Drug Form: SUSP, Daily, Start date: 02/13/16 15:00:00 CDT, Duration: 1 doses or times, Stop date: 02/13/16 15:00:00 CDT Notes: (Same as: Fluzone Quadrivalent, Fluarix Quadrivalent)For 3 years of age and older (0.5 mL IM)Shake well before use Start Date: 02/13/16 Stop Date: 02/13/16 Status: Completedinfluenza virus vaccine, inactivated 0.5 mL, Route: IM, Drug Form: SUSP, Daily, Start date: 02/13/16 10:38:00 CDT, Duration: 1 doses or times, Stop date: 02/13/16 10:38:00 CDT Notes: (Same as: Fluzone Quadrivalent, Fluarix Quadrivalent)For 3 years of age and older (0.5 mL IM)Shake well before use Start Date: 02/13/16 Stop Date: 02/13/16 Status: Deletedinfluenza virus vaccine, inactivated 0.5 mL, Route: IM, Drug Form: SUSP, Daily, Start date: 02/13/16 9:00:00 CDT, Duration: 1 doses or times, Stop date: 02/13/16 9:00:00 CDT Notes: (Same as: Fluzone Quadrivalent, Fluarix Quadrivalent)For 3 years of age and older (0.5 mL IM)Shake well before use Start Date: 02/13/16 Stop Date: 02/13/16 Status: DeletedInsulin regular 12 unit, 0.12 mL, Route: SUB-Q, Drug form: SOLN, PRN, Dosing Weight 100, kg, PRN Abnormal Lab Result, Start date: 02/15/16 2:40:00 CDT, Duration: 30 day, Stop date: 03/16/16 1:39:00 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, For FSBG >=200 mg/dL Notes: (Same as: Humulin R) Roll in palms of hands gently; Do not shake vigorously. "single patientuse only"(Restricted to patients requiring a dose > 60 units)WASTE: F/P - Black; E - Municipal Trash Bin Stable for 28 days at room temperatureExpires in days from Date Start Date: 02/15/16 Stop Date: 02/16/16 Status: DiscontinuedInsulin regular 5 unit, 0.05 mL, Route: SUB-Q, Drug form: SOLN, PRN, Dosing Weight 100, kg, PRN Abnormal Lab Result,Start date: 02/15/16 2:40:00 CDT, Duration: 30 day, Stop date: 03/16/16 1:39:00 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, For FSBG 150 mg/dL - 174 mg/dL Notes: (Same as: Humulin R) Roll in palms of hands gently; Do not shake vigorously. "single patientuse only"(Restricted to patients requiring a dose > 60 units)WASTE: F/P - Black; E - Municipal Trash Bin Stable for 28 days at room temperatureExpires in days from Date Start Date: 02/15/16 Stop Date: 02/16/16 Status: DiscontinuedInsulin regular 8 unit, 0.08 mL, Route: SUB-Q, Drug form: SOLN, PRN, Dosing Weight 100, kg, PRN Abnormal Lab Result,Start date: 02/15/16 2:40:00 CDT, Duration: 30 day, Stop date: 03/16/16 1:39:00 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, For FSBG 175 mg/dL - 199 mg/dL Notes: (Same as: Humulin R) Roll in palms of hands gently; Do not shake vigorously. "single patientuse only"(Restricted to patients requiring a dose > 60 units)WASTE: F/P - Black; E - Municipal Trash Bin Stable for 28 days at room temperatureExpires in days from Date Start Date: 02/15/16 Stop Date: 02/16/16 Status: DiscontinuedInsulin regular 12 unit, 0.12 mL, Route: SUB-Q, Drug form: SOLN, PRN, Dosing Weight 100, kg, PRN Abnormal Lab Result, Start date: 02/22/16 17:02:00 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, Duration: 30 day, Stop date: 03/23/16 17:01:00 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, For FSBG >=200 mg/dL Notes: (Same as: Humulin R) Roll in palms of hands gently; Do not shake vigorously. "single patientuse only"(Restricted to patients requiring a dose > 60 units)WASTE: F/P - Black; E - Municipal Trash Bin Stable for 28 days at room temperatureExpires in days from Date Start Date: 02/22/16 Stop Date: 02/23/16 Status: DiscontinuedInsulin regular 8 unit, 0.08 mL, Route: SUB-Q, Drug form: SOLN, PRN, Dosing Weight 100, kg, PRN Abnormal Lab Result,Start date: 02/22/16 17:02:00 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, Duration: 30 day, Stop date: 03/23/16 17:01:00 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, For FSBG 175 mg/dL - 199 mg/dL Notes: (Same as: Humulin R) Roll in palms of hands gently; Do not shake vigorously. "single patientuse only"(Restricted to patients requiring a dose > 60 units)WASTE: F/P - Black; E - Municipal Trash Bin Stable for 28 days at room temperatureExpires in days from Date Start Date: 02/22/16 Stop Date: 02/23/16 Status: DiscontinuedInsulin regular 5 unit, 0.05 mL, Route: SUB-Q, Drug form: SOLN, PRN, Dosing Weight 100, kg, PRN Abnormal Lab Result,Start date: 02/22/16 17:02:00 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, Duration: 30 day, Stop date: 03/23/16 17:01:00 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, For FSBG 150 mg/dL - 174 mg/dL Notes: (Same as: Humulin R) Roll in palms of hands gently; Do not shake vigorously. "single patientuse only"(Restricted to patients requiring a dose > 60 units)WASTE: F/P - Black; E - Municipal Trash Bin Stable for 28 days at room temperatureExpires in days from Date Start Date: 02/22/16 Stop Date: 02/23/16 Status: Discontinuedipratropium 0.02% inhalation solution 0.5 mg, 2.5 mL, Route: NEB, Drug form: SOLN, RQ8H, Dosing Weight 100, kg, Start date: 02/17/16 9:48:00 CDT, Stop date: 03/18/16 7:00:00 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 Notes: SEE RT DOCUMENTATION(Same as:Atrovent) Start Date: 02/17/16 Stop Date: 03/15/16 Status: DiscontinuedIsolyte S (PH 7.4) 1000 mL 1,000 mL 1,000 mL, Rate: 100 ml/hr, Infuse over: 10 hr, Route: IV, Dosing Weight 100 kg, Total Volume: 1,000,Start date: 03/24/16 0:01:00 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, Duration: 1 day, Stop date : 03/25/16 0:00:00 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 Notes: (Same as: Isolyte S PH 7.4) Start Date: 03/24/16 Stop Date: 03/24/16 Status: DiscontinuedIsolyte S (PH 7.4) 1000 mL 1,000 mL 1,000 mL, Rate: 100 ml/hr, Infuse over: 10 hr, Route: IV, Dosing Weight 100 kg, Total Volume: 1,000,Start date: 03/14/16 0:42:00 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, Duration: 30 day, Stop date: 04/13/16 0:41:00 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 Notes: (Same as: Isolyte S PH 7.4) Start Date: 03/14/16 Stop Date: 03/16/16 Status: DiscontinuedIsolyte S (PH 7.4) 1000 mL 1,000 mL 1,000 mL, Rate: 100 ml/hr, Infuse over: 10 hr, Route: IV, Dosing Weight 100 kg, Total Volume: 1,000,Start date: 02/22/16 20:47:00 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, Duration: 30 day, Stop date: 03/23/16 20:46:00 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 Notes: (Same as: Isolyte S PH 7.4) Start Date: 02/22/16 Stop Date: 02/24/16 Status: DiscontinuedIsolyte S (PH 7.4) 1000 mL 1,000 mL 1,000 mL, Rate: 125 ml/hr, Infuse over: 8 hr, Route: IV, Dosing Weight 100 kg, Total Volume: 1,000, Start date: 03/11/16 10:58:00 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, Duration: 30 day, Stop date: 04/10/16 10:57:00 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 Notes: (Same as: Isolyte S PH 7.4) Start Date: 03/11/16 Stop Date: 03/12/16 Status: DiscontinuedIsolyte S (PH 7.4) 1000 mL 1,000 mL 1,000 mL, Rate: 100 ml/hr, Infuse over: 10 hr, Route: IV, Dosing Weight 100 kg, Total Volume: 1,000,Start date: 02/21/16 17:20:00 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, Duration: 30 day, Stop date: 03/22/16 17:19:00 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 Notes: (Same as: Isolyte S PH 7.4) Start Date: 02/21/16 Stop Date: 02/22/16 Status: DiscontinuedIsolyte S (PH 7.4) 1000 mL 1,000 mL 1,000 mL, Rate: 100 ml/hr, Infuse over: 10 hr, Route: IV, Dosing Weight 100 kg, Total Volume: 1,000,Start date: 02/13/16 9:05:00 CDT, Stop date: 03/14/16 9:04: 00 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 Notes: (Same as: Isolyte S PH 7.4) Start Date: 02/13/16 Stop Date: 02/16/16 Status: DiscontinuedIsolyte S (PH 7.4) 1000 mL 1,000 mL 1,000 mL, Rate: 100 ml/hr, Infuse over: 10 hr, Route: IV, Dosing Weight 100 kg, Total Volume: 1,000,Start date: 03/07/16 18:09:00 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, Duration: 30 day, Stop date: 04/06/16 18:08:00 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 Notes: (Same as: Isolyte S PH 7.4) Start Date: 03/07/16 Stop Date: 03/11/16 Status: DiscontinuedIsolyte S (PH 7.4) 1000 mL 1,000 mL 1,000 mL, Rate: 50 ml/hr, Infuse over: 20 hr, Route: IV, Dosing Weight 100 kg, Total Volume: 1,000, Start date: 02/19/16 16:28:00 CDT, Stop date: 03/20/16 16: 27:00 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 Notes: (Same as: Isolyte S PH 7.4) Start Date: 02/19/16 Stop Date: 02/21/16 Status: DiscontinuedIsolyte S (PH 7.4) 1000 mL 1,000 mL 1,000 mL, Rate: 200 ml/hr, Infuse over: 5 hr, Route: IV, Dosing Weight 100 kg, Total Volume: 1,000, Start date: 02/12/16 12:38:00 CDT, Stop date: 03/13/16 12: 37:00 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 Notes: (Same as: Isolyte S PH 7.4) Start Date: 02/12/16 Stop Date: 02/13/16 Status: DiscontinuedIsolyte S PH-7.4 (Bolus) IV 500 mL, 500 ml/hr, Route: IV, Drug Form: SOLN, Dosing Weight 100, kg, ONCE, Start date: 02/14/16 17:50:00 CDT, Stop date: 02/14/16 17:50:00 CDT Notes: (Same as: Isolyte S PH7.4) Start Date: 02/14/16 Stop Date: 02/14/16 Status: CompletedIsolyte S PH-7.4 (Bolus) IV 500 mL, 500 ml/hr, Route: IV, Drug Form: SOLN, Dosing Weight 100, kg, ONCE, STAT , Start date: 02/26/16 19:31:00 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, Stop date: 02/26/16 19:31:00 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, Bolus Dose Infuse over 1 hour Notes: (Same as: Isolyte S PH 7.4) Start Date: 02/26/16 Stop Date: 02/27/16 Status: CompletedIsolyte S PH-7.4 (Bolus) IV 1,000 mL, 0 ml/hr, Route: IV, Drug Form: SOLN, Dosing Weight 100, kg, ONCE, STAT , Start date: 02/12/16 12:41:00 CDT, Stop date: 02/12/16 12:41:00 CDT Notes: (Same as: Isolyte S PH 7.4) Start Date: 02/12/16 Stop Date: 02/12/16 Status: CompletedIsolyte S PH-7.4 (Bolus) IV 1,000 mL, 1000 ml/hr, Route: IV, Drug Form: SOLN, Dosing Weight 100, kg, ONCE, Start date: 02/12/16 17:05:00 CDT, Stop date: 02/12/16 17:05:00 CDT Notes: (Same as: Isolyte S PH 7.4) Start Date: 02/12/16 Stop Date: 02/12/16 Status: Completedlabetalol 10 mg, 2 mL, Route: IVP, Drug form: INJ, Q5Min, Dosing Weight 100, kg, PRN Elevated BP, Start date: 03/18/16 9:21:00 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, Duration: 5 doses or times, Stop date: Limited # of times Start Date: 03/18/16 Stop Date: 03/18/16 Status: Discontinuedlabetalol 10 mg, 2 mL, Route: IVP, Drug form: INJ, Q4H, Dosing Weight 100, kg, PRN Hypertension, SBP > 160; hold for HR < 70, Start date: 02/12/16 17:33:00 CDT , Stop date: 03/13/16 17:32:00 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 Start Date: 02/12/16 Stop Date: 02/16/16 Status: DiscontinuedLactated Ringers 1,000 mL 1,000 mL, Rate: 125 ml/hr, Infuse over: 8 hr, Route: IV, Dosing Weight 100 kg, Total Volume: 1,000, Start date: 02/14/16 10:00:00 CDT, Duration: 30 day, Stop date: 03/15/16 9:59:00 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 Start Date: 02/14/16 Stop Date: 02/14/16 Status: DiscontinuedLasix 20 mg, 2 mL, Route: IV, Drug form: INJ, Q8H, Dosing Weight 100, kg, Start date: 02/21/16 13:26:00 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, Duration: 1 day, Stop date: 02/22/16 8:00:00 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 Notes: (Same as: Lasix) MEDICATION WASTE Product Size: 40 mgProduct Wasted: _20__ mg Start Date: 02/21/16 Stop Date: 02/21/16 Status: Discontinuedlidocaine topical patch (5% film) 1 patch, Route: TOP, Daily, Drug form: FILM, apply to L chest wall at site of maximal tenderness, Priority: Stat, Start date: 02/13/16 9:00:00 CDT, Duration: 30 day, Stop date: 03/13/16 9:00:00 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 Start Date: 02/13/16 Stop Date: 02/14/16 Status: Discontinuedlidocaine topical patch (5% film) 1 patch, Route: TOP, Daily, Drug form: FILM, Priority: Now, Start date: 17:00:00 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, Duration: 30 day, Stop date: 04/23/16 9:00:00 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, Remove after 12 hours Notes: Apply only once for up to 12 hours in [id number] period (12 hours on and 12 hours off).(Same as: Lidoderm)"Remove old patch before application of new patch" Start Date: 03/24/16 Stop Date: 03/31/16 Status: Discontinuedlidocaine topical patch (5% film) 1 patch, TOP, Daily, Remove after 12 hours, 0 Refill(s) Start Date: 03/31/16 Status: Suspendedlidocaine-epi 1%-1:694252 20 ml, Route: MISC, Drug Form: INJ, Dosing Weight 100, kg, ONCE, STAT, Start date: 02/12/16 15:42:00CDT, Stop date: 02/12/16 15:42:00 CDT Notes: (Same as: Xylocaine w/Epinephrine) Start Date: 02/12/16 Stop Date: 02/15/16 Status: CompletedLidoderm 5% topical film (patch) 1 patch, Route: TOP, Daily, Drug form: FILM, Priority: Now, Start date: 9:00:00 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, Duration: 30 day, Stop date: 04/14/16 9:00:00 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, Remove after 12 hours Notes: Apply only once for up to 12 hours in d97-[id number] period (12 hours on and 12 hours off).(Same as: Lidoderm)"Remove old patch before application of new patch" Start Date: 02/24/16 Stop Date: 03/24/16 Status: Discontinuedlisinopril 10 mg, PO, Daily, 0 Refill(s) Start Date: 02/12/16 Stop Date: 03/09/16 Status: Completedlisinopril 10 mg, 1 tab, Route: PO, Drug form: TAB, Daily, Dosing Weight 100, kg, Priority : NOW, Start date: 02/12/16 21:43:00 CDT, Duration: 30 day, Stop date: 03/13/16 9:00:00 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 Notes: (Same as: Prinives Zestril) Start Date: 02/12/16 Stop Date: 02/29/16 Status: DiscontinuedLORazepam 1 mg, 0.5 mL, Route: IVP, Drug form: INJ, Q12H, Dosing Weight 100, kg, Start date: 02/23/16 9:00:00 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, Duration: 24 hr, Stop date: 02/23/16 21:00:00 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 Notes: (Same as: Ativan) Start Date: 02/23/16 Stop Date: 02/19/16 Status: CanceledLORazepam 1 mg, 0.5 mL, Route: IVP, Drug form: INJ, Q8H, Dosing Weight 100, kg, Start date : 02/22/16 16:00:00 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, Duration: 24 hr, Stop date: 02/23/16 8:00:00 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 Notes: (Same as: Ativan) Start Date: 02/22/16 Stop Date: 02/19/16 Status: CanceledLORazepam 2 mg, 1 mL, Route: IVP, Drug form: INJ, Q6H, Dosing Weight 100, kg, Start date: 02/19/16 12:00:00 CDT, Duration: 24 hr, Stop date: 02/20/16 6:00:00 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 Notes: (Same as: Ativan) Start Date: 02/19/16 Stop Date: 02/19/16 Status: DiscontinuedLORazepam 2 mg, 1 mL, Route: IVP, Drug form: INJ, Q8H, Dosing Weight 100, kg, Start date: 02/20/16 16:00:00 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, Duration: 24 hr, Stop date: 02/21/16 8:00:00 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 Notes: (Same as: Ativan) Start Date: 02/20/16 Stop Date: 02/19/16 Status: CanceledLORazepam 4 mg, 2 mL, Route: IVP, Drug form: INJ, Q2H, Dosing Weight 100, kg, PRN Other - See Comment, CIWA Score 15-20, Start date: 02/19/16 9:17:00 CDT, Duration: 30 day, Stop date: 03/20/16 9:16:00 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 Notes: (Same as: Ativan) Start Date: 02/19/16 Stop Date: 02/23/16 Status: DiscontinuedLORazepam 6 mg, 3 mL, Route: IVP, Drug form: INJ, Q2H, Dosing Weight 100, kg, PRN Other - See Comment, CIWA Score > 20, Start date: 02/19/16 9:17:00 CDT, Duration: 30 day , Stop date: 03/20/16 9:16:00 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 Notes: (Same as: Ativan) Start Date: 02/19/16 Stop Date: 02/23/16 Status: DiscontinuedLORazepam 1 mg, 0.5 mL, Route: IVP, Drug form: INJ, Q6H, Dosing Weight 100, kg, Start date : 02/21/16 12:00:00 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, Duration: 24 hr, Stop date: 02/22/16 6:00:00 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 Notes: (Same as: Ativan) Start Date: 02/21/16 Stop Date: 02/19/16 Status: CanceledLORazepam 2 mg, 1 mL, Route: IVP, Drug form: INJ, Q2H, Dosing Weight 100, kg, PRN Other - See Comment, CIWA Score 8 -14, Start date: 02/19/16 9:17:00 CDT, Duration: 30 day, Stop date: 03/20/16 9:16:00 DUST HANDLER Notes: (Same as: Ativan) Start Date: 02/19/16 Stop Date: 02/23/16 Status: DiscontinuedLovenox 40 mg, 0.4 mL, Route: SUB-Q, Drug form: INJ, Q12H, Dosing Weight 100, kg, Start date: 02/12/16 21:00:00 CDT, Duration: 30 day, Stop date: 03/13/16 16:00:00 DUST HANDLER Notes: (Same as: Lovenox) Start Date: 02/12/16 Stop Date: 02/13/16 Status: DiscontinuedLovenox 40 mg, 0.4 mL, Route: SUB-Q, Drug form: INJ, [id number], Dosing Weight 100, kg, Start date: 03/16/16 6:00:00 DUST HANDLER, Duration: 30 day, Stop date: 04/14/16 6:00:00 DUST HANDLER Notes: (Same as: Lovenox) Start Date: 03/16/16 Stop Date: 03/31/16 Status: DiscontinuedLovenox 40 mg, 0.4 mL, Route: SUB-Q, Drug form: INJ, Q12H, Dosing Weight 100, kg, Start date: 02/15/16 16:00:00 CDT, Duration: 30 day, Stop date: 03/16/16 4:00:00 DUST HANDLER Notes: (Same as: Lovenox) Start Date: 02/15/16 Stop Date: 03/15/16 Status: DiscontinuedLyrica 50 mg, 1 cap, Route: PO, Drug form: CAP, Q8H, Dosing Weight 100, kg, Priority: STAT, Start date: 02/12/16 12:37:00 CDT, Stop date: 03/13/16 6:00:00 DUST HANDLER Notes: Same as Lyrica Start Date: 02/12/16 Stop Date: 02/15/16 Status: Discontinuedmagnesium oxide 400 mg, 1 tab, Route: PO, Drug form: TAB, ONCE, Dosing Weight 100, kg, Start date: 02/14/16 6:22:00 CDT, Stop date: 02/14/16 6:22:00 CDT Notes: (Same as: Mag-Ox 400)Magnesium oxide [id number] elemental magnesiumDose= ____mg magnesium oxide (___mg elemental magnesium) Start Date: 02/14/16 Stop Date: 02/14/16 Status: CompletedMarcaine HCl with Epinephrine 0.25%-1:200,000 injectable solution 30 mL, Route: NERVE BLOCK, Drug Form: INJ, Dosing Weight 100, kg, ONCE, NOW, Start date: 02/14/16 7:25:00 CDT, Stop date: 02/14/16 7:25:00 CDT Notes: (bupivacaine-epi 0.25%-1:200,000 30 ml VL) Not for use in continuous infusion. (Same As: Marcaine w/Epi) Start Date: 02/14/16 Stop Date: 02/14/16 Status: CompletedMetamucil 3.4 gm, 1 pkt, Route: PO, Drug Form: PDR/REC, Dosing Weight 100, kg, BID, Start date: 03/03/16 17:00:00 DUST HANDLER, Duration: 30 day, Stop date: 04/28/16 9:00:00 DUST HANDLER Notes: (Same as: Metamucil) Mix in 8 oz liquid with meal. Start Date: 03/03/16 Stop Date: 03/31/16 Status: Discontinuedmethocarbamol 750 mg oral tablet 750 mg=1 tab, PO, TID, 0 Refill(s) Start Date: 03/31/16 Status: Suspendedmidazolam 50mg/ NS 50ml drip (premixed) 50 mg 50 mg, 50 mL, Rate: Titrate, Start Dose: 1 mg/hr, Titration: Rebolus 1 mg IV and /or Titrate infusionby 1 mg/hour every 30 minutes, Goal(s): RASS 0, Max Dose: 10 mg/hr, Route: IV, Dosing Weight 100 kg,Total Volume: 50, Start date: 0:33:00 CS... Notes: (Same as: Versed) Start Date: 02/23/16 Stop Date: 02/23/16 Status: DiscontinuedMiraLax 17 gm, 1 pkt, Route: PO, Drug form: PWDR, Q24H, Dosing Weight 100, kg, Start date: 02/15/16 6:00:00 CDT, Duration: 30 day, Stop date: 03/15/16 6:00:00 DUST HANDLER Notes: Dissolve in 8 oz of water or juice.(Same as: Miralax) Start Date: 02/15/16 Stop Date: 02/16/16 Status: DiscontinuedMiraLax 17 gm, 1 pkt, Route: PO, Drug form: PWDR, BID, Dosing Weight 100, kg, Start date : 02/22/16 9:00:00 DUST HANDLER, Duration: 30 day, Stop date: 03/22/16 17:00:00 DUST HANDLER Notes: Dissolve in 8 oz of water or juice.(Same as: Miralax) Start Date: 02/22/16 Stop Date: 02/29/16 Status: DiscontinuedMiraLax 17 gm, 1 pkt, Route: PO, Drug form: PWDR, BID, Dosing Weight 100, kg, Start date : 03/19/16 17:00:00 DUST HANDLER, Duration: 30 day, Stop date: 04/18/16 9:00:00 DUST HANDLER Notes: Dissolve in 8 oz of water or juice.(Same as: Miralax) Start Date: 03/19/16 Stop Date: 03/31/16 Status: DiscontinuedMiraLax 17 gm, 1 pkt, Route: PO, Drug form: PWDR, Daily, Dosing Weight 100, kg, Start date: 03/01/16 9:00:00CST, Duration: 30 day, Stop date: 03/30/16 9:00:00 DUST HANDLER Notes: Dissolve in 8 oz of water or juice.(Same as: Miralax) Start Date: 03/01/16 Stop Date: 03/02/16 Status: DiscontinuedMiraLax 17 gm, 1 pkt, Route: PO, Drug form: PWDR, BID, Dosing Weight 100, kg, Start date : 02/16/16 17:00:00 CDT, Duration: 30 day, Stop date: 03/17/16 9:00:00 DUST HANDLER Notes: Dissolve in 8 oz of water or juice.(Same as: Miralax) Start Date: 02/16/16 Stop Date: 02/18/16 Status: Discontinuedmultivitamin 1 tab, Route: PO, Drug Form: TAB, Dosing Weight 100, kg, Daily, Start date: 10/29 9:00:00 DUST HANDLER, Duration: 30 day, Stop date: 04/20/16 9:00:00 DUST HANDLER Notes: (Same as:Nemo)WASTE: F/P - Black; E - Municipal Trash Bin Take with food. Start Date: 02/21/16 Stop Date: 03/31/16 Status: Discontinuedmultivitamin 1 tab, Route: PO, Drug Form: TAB, Dosing Weight 100, kg, Daily, Start date: 12/30 9:00:00 DUST HANDLER, Duration: 30 day, Stop date: 03/23/16 9:00:00 DUST HANDLER Notes: (Same as:Nemo)WASTE: F/P - Black; E - Municipal Trash Bin Take with food. Start Date: 02/23/16 Stop Date: 02/20/16 Status: Canceledmultivitamin 1 tab, Route: PO, Drug Form: TAB, Dosing Weight 100, kg, Daily, Start date: 17:13:00 CDT, Duration: 30 day, Stop date: 03/13/16 9:00:00 DUST HANDLER Notes: (Same as:Nemo)WASTE: F/P - Black; E - Municipal Trash Bin Take with food. Start Date: 02/12/16 Stop Date: 02/19/16 Status: Discontinuedmultivitamin 1 tab, Route: PO, Drug Form: TAB, Dosing Weight 100, kg, Daily, Start date: 08/29 10:30:00 CDT, Duration: 5 day, Stop date: 02/24/16 9:00:00 DUST HANDLER Notes: (Same as:Nemo)WASTE: F/P - Black; E - Municipal Trash Bin Take with food. Start Date: 02/19/16 Stop Date: 02/19/16 Status: Discontinuedmultivitamin 1 tab, PO, Daily, 0 Refill(s) Start Date: 03/31/16 Status: SuspendedMylanta Gas 80 mg, 1 tab, Route: CHEW, Drug form: CHEWTAB, ONCE, Dosing Weight 100, kg, Start date: 02/26/16 22:51:00 DUST HANDLER, Stop date: 02/26/16 22:51:00 DUST HANDLER Notes: (Same as: Tanya) Start Date: 02/26/16 Stop Date: 02/26/16 Status: Completednaloxone 0.4 mg, 1 mL, Route: IVP, Drug form: INJ, Q2MIN, Dosing Weight 100, kg, PRN Narcotic Reversal, Startdate: 03/18/16 9:21:00 DUST HANDLER, Duration: 8 doses or times, Stop date: Limited # of times Notes: Same as Narcan Start Date: 03/18/16 Stop Date: 03/18/16 Status: Discontinuednicotine 14 mg, 1 patch, Route: TOP, Drug form: ERFILM, Daily, Dosing Weight 100, kg, Start date: 02/15/16 9:00:00 CDT, Duration: 30 day, Stop date: 03/15/16 9:00:00 DUST HANDLER Notes: (Same as: Halina)"Remove old patch before application of new patch "WASTE: F/P - P Waste Black; E - P Waste Black Start Date: 02/15/16 Stop Date: 02/15/16 Status: Discontinuednicotine 14 mg, 1 patch, Route: TOP, Drug form: ERFILM, Daily, Dosing Weight 100, kg, Start date: 02/25/16 10:00:00 DUST HANDLER, Duration: 30 day, Stop date: 04/25/16 9:00: 00 DUST HANDLER Notes: (Same as: Halina)"Remove old patch before application of new patch "WASTE: F/P - P Waste Black; E - P Waste Black Start Date: 02/25/16 Stop Date: 03/31/16 Status: Discontinuednicotine 21 mg, 1 patch, Route: TOP, Drug form: ERFILM, Daily, Dosing Weight 100, kg, Start date: 02/13/16 9:00:00 CDT, Duration: 30 day, Stop date: 03/13/16 9:00:00 DUST HANDLER Notes: (Same as: Halina)"Remove old patch before application of new patch "WASTE: F/P - P Waste Black; E - P Waste Black Start Date: 02/13/16 Stop Date: 02/25/16 Status: Discontinuednicotine 14 mg=1 patch, TOP, Daily, 0 Refill(s) Start Date: 03/31/16 Status: SuspendedNorco 10/325 oral tablet 1 tab, Route: PO, Drug Form: TAB, Dosing Weight 100, kg, Q6H, PRN Pain Score 7- 10, Start date: 03/20/16 14:14:00 DUST HANDLER, Duration: 30 day, Stop date: 04/19/16 14: 13:00 DUST HANDLER Notes: Do not exceed 4gm/day of acetaminophen. (Same as: Elizabeth 325/10) Start Date: 03/20/16 Stop Date: 03/26/16 Status: DiscontinuedNorco 10/325 oral tablet 1 tab, Route: PO, Drug Form: TAB, Dosing Weight 100, kg, Q6H, Start date: 18:01:00 DUST HANDLER, Duration: 30 day, Stop date: 04/19/16 18:00:00 DUST HANDLER Notes: Do not exceed 4gm/day of acetaminophen. (Same as: Elizabeth 325/10) Start Date: 03/20/16 Stop Date: 03/31/16 Status: DiscontinuedNorco 10/325 oral tablet 2 tab, Route: PO, Drug Form: TAB, Dosing Weight 100, kg, Q6H, PRN Pain Score 7- 10, Start date: 03/19/16 16:48:00 DUST HANDLER, Duration: 30 day, Stop date: 04/18/16 16: 47:00 DUST HANDLER Notes: Do not exceed 4gm/day of acetaminophen. (Same as: Elizabeth 325/10) Start Date: 03/19/16 Stop Date: 03/19/16 Status: DiscontinuedNorco 10/325 oral tablet 1 tab, Route: PO, Drug Form: TAB, Dosing Weight 100, kg, Q6H, Start date: 18:00:00 DUST HANDLER, Duration: 30 day, Stop date: 04/18/16 12:00:00 DUST HANDLER Notes: Do not exceed 4gm/day of acetaminophen. (Same as: Elizabeth 325/10) Start Date: 03/19/16 Stop Date: 03/19/16 Status: DiscontinuedNorco 10/325 oral tablet 1 tab, PO, Q6H, 0 Refill(s) Start Date: 03/31/16 Status: SuspendedOmnipaque 350mg/ml 100 mL, Route: IVP, Drug Form: SOLN, Dosing Weight 100, kg, ONCALL, STAT, Start date: 02/21/16 15:18:00 DUST HANDLER, Duration: 1 doses or times, Stop date: 02/22/16 0: 00:00 DUST HANDLER, Dose=2.2ml/kg, Max [id number] -- "To be infused by Radiology Staff ONLY" Notes: (Same as:Omnipaque 350).WASTE: F/P - Black; E - Municipal Trash Bin Start Date: 02/21/16 Stop Date: 02/21/16 Status: Completedondansetron 4 mg, 2 mL, Route: IVP, Drug form: INJ, ONCE, Dosing Weight 100, kg, PRN Nausea & Vomiting, Start date: 03/18/16 9:21:00 DUST HANDLER Notes: (Same as: Martinez) MEDICATION WASTE Product Size: 4 mgProduct Wasted: _0__ mg Start Date: 03/18/16 Stop Date: 03/18/16 Status: DiscontinuedoxyCODONE 5 mg oral tablet 5 mg, 1 tab, Route: PO, Drug form: TAB, Q4H, Dosing Weight 100, kg, PRN Pain Score 4-6, Start date: 03/04/16 8:59:00 DUST HANDLER, Duration: 30 day, Stop date: 8:58:00 DUST HANDLER Notes: (Same as: Roxicodone) Start Date: 03/04/16 Stop Date: 03/19/16 Status: DiscontinuedoxyCODONE 5 mg oral tablet 5 mg, 1 tab, Route: PO, Drug form: TAB, Q6H, Dosing Weight 100, kg, Priority: NOW, Start date: 03/19/16 21:39:00 DUST HANDLER, Stop date: 03/20/16 18:00:00 DUST HANDLER Notes: (Same as: Roxicodone) Start Date: 03/19/16 Stop Date: 03/19/16 Status: DiscontinuedoxyCODONE 5 mg oral tablet 5 mg, 1 tab, Route: PO, Drug form: TAB, Q6H, Dosing Weight 100, kg, PRN Pain Score 1-5, , Start date: 02/12/16 12:37:00 CDT, Duration: 30 day, Stop date: ... Notes: (Same as: Roxicodone) Start Date: 02/12/16 Stop Date: 02/13/16 Status: DiscontinuedoxyCODONE 5 mg oral tablet 10 mg, 2 tab, Route: PO, Drug form: TAB, Q6H, Dosing Weight 100, kg, Priority: NOW, Start date: 02/23/16 9:15:00 DUST HANDLER, Stop date: 04/14/16 6:00:00 DUST HANDLER Notes: (Same as: Roxicodone) Start Date: 02/23/16 Stop Date: 03/19/16 Status: DiscontinuedoxyCODONE 5 mg oral tablet 10 mg, 2 tab, Route: PO, Drug form: TAB, Q6H, Dosing Weight 100, kg, Priority: NOW, Start date: 03/19/16 21:41:00 DUST HANDLER, Stop date: 03/20/16 15:30:00 DUST HANDLER Notes: (Same as: Roxicodone) Start Date: 03/19/16 Stop Date: 03/20/16 Status: DiscontinuedoxyCODONE 5 mg oral tablet 10 mg, Route: PO, Drug form: TAB, Q6H, Dosing Weight 100, kg, Start date: 12:00:00 DUST HANDLER, Duration: 30 day, Stop date: 03/24/16 6:00:00 DUST HANDLER Start Date: 02/23/16 Stop Date: 02/23/16 Status: CanceledoxyCODONE 5 mg oral tablet 10 mg, 2 tab, Route: PO, Drug form: TAB, Q6H, Dosing Weight 100, kg, Start date : 03/20/16 0:00:00 DUST HANDLER, Stop date: 04/18/16 18:00:00 DUST HANDLER Notes: (Same as: Roxicodone) Start Date: 03/20/16 Stop Date: 03/19/16 Status: CanceledoxyCODONE 5 mg oral tablet 5 mg=1 tab, PO, Q4H, PRN Pain Score 7-10, 0 Refill(s) Start Date: 03/31/16 Status: SuspendedoxyCODONE 5 mg oral tablet 10 mg, 2 tab, Route: PO, Drug form: TAB, Q4H, Dosing Weight 100, kg, PRN Pain Score 6-10, Start date: 02/13/16 16:26:00 CDT, Duration: 30 day, Stop date: 16:25:00 DUST HANDLER Notes: (Same as: Roxicodone) Start Date: 02/13/16 Stop Date: 02/20/16 Status: DiscontinuedoxyCODONE 5 mg oral tablet 5 mg, 1 tab, Route: PO, Drug form: TAB, Q4H, Dosing Weight 100, kg, PRN Pain Score 4-6, Start date: 02/13/16 16:26:00 CDT, Duration: 30 day, Stop date: 03/14 16:25:00 DUST HANDLER Notes: (Same as: Roxicodone) Start Date: 02/13/16 Stop Date: 02/14/16 Status: DiscontinuedoxyCODONE 5 mg oral tablet 5 mg, 1 tab, Route: PO, Drug form: TAB, Q4H, Dosing Weight 100, kg, PRN Pain Score 7-10, Start date:03/26/16 10:42:00 DUST HANDLER, Duration: 30 day, Stop date: 04/25 10:41:00 DUST HANDLER Notes: (Same as: Roxicodone) Start Date: 03/26/16 Stop Date: 03/31/16 Status: DiscontinuedPHOS-NaK 2 pkt, Route: PO, Drug Form: PDR/REC, Dosing Weight 100, kg, Q8H, Start date: 16:48:00 DUST HANDLER,Duration: 30 day, Stop date: 03/28/16 16:00:00 DUST HANDLER Notes: (Same as: Phos-NaK) Each 1.5 gm pkt has 250mg phosphorous. Mix w/2.5oz water and stir. Start Date: 02/27/16 Stop Date: 03/02/16 Status: DiscontinuedPHOS-NaK 2 pkt, Route: PO, Drug Form: PDR/REC, Dosing Weight 100, kg, TID-Before Meals, Start date: 02/15/16 7:30:00 CDT, Stop date: 03/15/16 16:30:00 DUST HANDLER Notes: (Same as: Phos-NaK) Each 1.5 gm pkt has 250mg phosphorous. Mix w/2.5oz water and stir. Start Date: 02/15/16 Stop Date: 02/18/16 Status: DiscontinuedPHOS-NaK 2 pkt, Route: PO, Drug Form: PDR/REC, Dosing Weight 100, kg, Q8H, Start date: 8:00:00 DUST HANDLER, Stop date: 02/26/16 16:00:00 DUST HANDLER Notes: (Same as: Phos-NaK) Each 1.5 gm pkt has 250mg phosphorous. Mix w/2.5oz water and stir. Start Date: 02/24/16 Stop Date: 02/26/16 Status: CompletedPHOS-NaK 1 pkt, Route: PO, Drug Form: PDR/REC, Dosing Weight 100, kg, TID-Meals, Start date: 02/14/16 8:00:00CDT, Duration: 2 day, Stop date: 02/15/16 17:00:00 CDT Notes: (Same as: Phos-NaK) Each 1.5 gm pkt has 250mg phosphorous. Mix w/2.5oz water and stir. Start Date: 02/14/16 Stop Date: 02/14/16 Status: DiscontinuedPlasma-Lyte A PH-7.4 1000 ml INJ 1,000 mL 1,000 mL, Rate: 100 ml/hr, Infuse over: 10 hr, Route: IV, Dosing Weight 100 kg, Total Volume: 1,000,Start date: 03/18/16 0:01:00 DUST HANDLER, Duration: 1 day, Stop date : 03/19/16 0:00:00 DUST HANDLER Notes: WASTE: F/P - Sink; E - Municipal Trash Bin Start Date: 03/18/16 Stop Date: 03/19/16 Status: Completedpneumococcal 23-valent vaccine 0.5 mL, Route: IM, Drug Form: INJ, Daily, Start date: 02/13/16 9:00:00 CDT, Duration: 1 doses or times, Stop date: 02/13/16 9:00:00 CDT Notes: (Same as: Pneumovax 23) Refrigerate Start Date: 02/13/16 Stop Date: 02/13/16 Status: DeletedPneumovax 23 0.5 mL, Route: IM, Drug Form: INJ, Daily, Start date: 02/13/16 10:00:00 CDT, Duration: 1 doses or times, Stop date: 02/13/16 10:00:00 CDT Notes: (Same as: Pneumovax 23) Refrigerate Start Date: 02/13/16 Stop Date: 02/13/16 Status: Completedpolyethylene glycol 3350 17 gm, PO, BID, 0 Refill(s) Start Date: 03/31/16 Status: Suspendedpotassium phosphate 1.45 gm, Route: PO, BID, Dosing Weight 100, kg, Start date: 02/18/16 9:00:00 CDT , Duration: 30 day, Stop date: 03/18/16 17:00:00 DUST HANDLER Start Date: 02/18/16 Stop Date: 02/18/16 Status: Deletedpotassium phosphate 21 mmol, Route: IVPB, ONCE, Dosing Weight 100, kg, Start date: 02/24/16 8:18:00 DUST HANDLER, Stop date: 02/24/16 8:18:00 DUST HANDLER Start Date: 02/24/16 Stop Date: 02/24/16 Status: Discontinuedpotassium phosphate 1.45 gm, Route: PO, Daily, Dosing Weight 100, kg, Start date: 02/18/16 9:00:00 CDT, Duration: 30 day, Stop date: 03/18/16 9:00:00 DUST HANDLER Start Date: 02/18/16 Stop Date: 02/17/16 Status: Canceledpotassium phosphate 1.45 gm, Route: PO, Daily, Dosing Weight 100, kg, Start date: 02/18/16 9:00:00 CDT, Duration: 30 day, Stop date: 03/18/16 9:00:00 DUST HANDLER Start Date: 02/18/16 Stop Date: 02/17/16 Status: Deletedpotassium phosphate + sodium chloride 0.9% INJ 250 mL 30 mmol, 10 mL, Route: IVPB, ONCE, Dosing Weight 100, kg, Start date: 02/24/16 1 :57:00 DUST HANDLER, Stop date: 02/24/16 1:57:00 DUST HANDLER Notes: (Same as: K Phosphate.) 1 mMol phoshate has 1.47 mEq potassium Infuse over 4 hours Start Date: 02/24/16 Stop Date: 02/24/16 Status: Completedpotassium phosphate-sodium phosphate 1 pkt, Route: PO, Drug Form: PDR/REC, ONCE, Start date: 02/17/16 11:44:00 CDT, Stop date: 02/17/16 11:44:00 CDT Notes: (Same as: Phos-NaK) Each 1.5 gm pkt has 250mg phosphorous. Mix w/2.5oz water and stir. Start Date: 02/17/16 Stop Date: 02/17/16 Status: Completedpotassium phosphate-sodium phosphate 1 pkt, Route: PO, Drug Form: PDR/REC, BID, Start date: 02/18/16 11:10:00 CDT, Duration: 30 day, Stopdate: 03/19/16 9:00:00 DUST HANDLER Notes: (Same as: Phos-NaK) Each 1.5 gm pkt has 250mg phosphorous. Mix w/2.5oz water and stir. Start Date: 02/18/16 Stop Date: 02/23/16 Status: Discontinuedpotassium phosphate-sodium phosphate 250 mg-280 mg-160 mg oral powder for reconstitution 2 pkt, Route: PO, Drug Form: PDR/REC, Dosing Weight 100, kg, ONCE, Start date: 02/16/16 11:39:00 CDT, Stop date: 02/16/16 11:39:00 CDT Notes: (Same as: Phos-NaK) Each 1.5 gm pkt has 250mg phosphorous. Mix w/2.5oz water and stir. Start Date: 02/16/16 Stop Date: 02/16/16 Status: Completedpropofol INJ 1,000 mg 1,000 mg, 100 mL, Rate: Titrate, Start Dose: 5 microgram/kg/min, Titration: 5 microgram/kg/min every15 minutes, Goal(s): RASS 0, Max Dose: 50 mcg/kg/min, Route: IV, Dosing Weight 100 kg, Total Volume:100, Start date: 02/22/16 17:02: 00 DUST HANDLER, Duration:... Notes: If Diprivan - change bottle & tubing every 12 hrPer state nursing law propofol can only be given by a nurse if patient is intubated or being intubated (unless the nurse is a MARKETING MANAGER). Same as:[place] Start Date: 02/22/16 Stop Date: 02/23/16 Status: Discontinuedpropofol INJ 1,000 mg 1,000 mg, 100 mL, Rate: Titrate, Start Dose: 5 microgram/kg/min, Titration: 5 microgram/kg/min every15 minutes, Goal(s): RASS 0, Max Dose: 50 mcg/kg/min, Route: IV, Dosing Weight 100 kg, Total Volume:100, Start date: 02/25/16 10:59: 00 DUST HANDLER, Duration:... Notes: If Diprivan - change bottle & tubing every 12 [facility] state nursing law propofol can only be given by a nurse if patient is intubated or being intubated (unless the nurse is a MARKETING MANAGER). Same as:Diprivan Start Date: 02/25/16 Stop Date: 02/26/16 Status: Discontinuedpropofol INJ 1,000 mg 1,000 mg, 100 mL, Rate: Titrate, Start Dose: 5 microgram/kg/min, Titration: 5 microgram/kg/min every15 min, Goal(s): RASS 0, Max Dose: 50 microgram/kg/min, Route: IV, Dosing Weight 100 kg, Total Volume: 100, Start date: 03/01/16 11:54: 00 DUST HANDLER, Duratio... Notes: If Diprivan - change bottle & tubing every 12 [facility] state nursing law propofol can only be given by a nurse if patient is intubated or being intubated (unless the nurse is a MARKETING MANAGER). Same as:Chuckrivan Start Date: 03/01/16 Stop Date: 03/03/16 Status: Discontinuedpropranolol 10 mg, 1 tab, Route: PO, Drug form: TAB, Q12H, Dosing Weight 100, kg, Start date : 02/24/16 9:00:00 DUST HANDLER, Duration: 30 day, Stop date: 03/24/16 21:00:00 DUST HANDLER Notes: Give with food.(Same as: Inderal) Start Date: 02/24/16 Stop Date: 02/25/16 Status: Discontinuedpropranolol 10 mg, 1 tab, Route: PO, Drug form: TAB, Q8H-05, Dosing Weight 100, kg, Start date: 02/25/16 10:00:00 DUST HANDLER, Stop date: 04/25/16 8:01:00 DUST HANDLER Notes: Give with food.(Same as: Inderal) Start Date: 02/25/16 Stop Date: 03/20/16 Status: Discontinuedpropranolol 10 mg oral tablet 10 mg=1 tab, PO, Q8H, 0 Refill(s) Start Date: 03/31/16 Status: Suspendedpsyllium 3.4 g/3.7 g oral powder 3.4 gm=, PO, BID, 0 Refill(s) Start Date: 03/31/16 Status: SuspendedQUEtiapine 25 mg oral tablet 25 mg=1 tab, PO, Bedtime, 0 Refill(s) Start Date: 03/31/16 Status: Suspendedremove patch 1 patch, Route: TOP, Bedtime, Drug form: ERFILM, Start date: 02/13/16 21:00:00 CDT, Stop date: 02/15/16 0:01:00 CDT Start Date: 02/13/16 Stop Date: 02/14/16 Status: Discontinuedremove patch 1 patch, Route: TOP, Bedtime, Drug form: ERFILM, Start date: 02/24/16 21:00:00 DUST HANDLER, Duration: 30 day, Stop date: 04/13/16 21:00:00 DUST HANDLER Notes: Remove patch 12 hours after application each day. Start Date: 02/24/16 Stop Date: 03/31/16 Status: Discontinuedremove patch 1 patch, Route: TOP, Drug form: ERFILM, Daily, Start date: 02/15/16 9:00:00 CDT , Duration: 30 day, Stop date: 04/14/16 9:00:00 DUST HANDLER Notes: Remove old patch before application of new patch.WASTE: F/P - P Waste Black; E - P Waste Black Start Date: 02/15/16 Stop Date: 03/31/16 Status: DiscontinuedRisperdal 1 mg, 1 tab, Route: PO, Drug form: TAB, Q12H, Dosing Weight 100, kg, Start date : 02/23/16 22:32:00 DUST HANDLER, Duration: 30 day, Stop date: 03/24/16 21:00:00 DUST HANDLER Notes: (Same as: Risperdal) Start Date: 02/23/16 Stop Date: 02/25/16 Status: DiscontinuedRisperdal 0.5 mg, Route: PO, Drug form: TAB, BID, Dosing Weight 100, kg, Start date: 02/22 17:00:00 DUST HANDLER, Duration: 30 day, Stop date: 03/24/16 9:00:00 DUST HANDLER Start Date: 02/23/16 Stop Date: 02/23/16 Status: CanceledRisperdal 0.5 mg, 1 tab, Route: PO, Drug form: TAB, Q12H, Dosing Weight 100, kg, Priority : NOW, Start date: 02/23/16 9:09:00 DUST HANDLER, Duration: 30 day, Stop date: 03/24/16 9 :00:00 DUST HANDLER Notes: (Same as: Risperdal) Start Date: 02/23/16 Stop Date: 02/23/16 Status: DiscontinuedRisperdal 0.5 mg, 1 tab, Route: PO, Drug form: TAB, Q12H, Dosing Weight 100, kg, Start date: 03/01/16 21:00:00CST, Duration: 30 day, Stop date: 04/30/16 9:00:00 DUST HANDLER Notes: (Same as: Risperdal) Start Date: 03/01/16 Stop Date: 03/31/16 Status: DiscontinuedrisperiDONE 1 mg, 1 tab, Route: PO, Drug form: TAB, Q12H, Dosing Weight 100, kg, Start date : 02/15/16 0:01:00 CDT, Duration: 30 day, Stop date: 03/15/16 21:00:00 DUST HANDLER Notes: (Same as: Risperdal) Start Date: 02/15/16 Stop Date: 02/16/16 Status: DiscontinuedrisperiDONE 0.5 mg, 1 tab, Route: PO, Drug form: TAB, Q12H, Dosing Weight 100, kg, Start date: 02/25/16 10:00:00CST, Duration: 30 day, Stop date: 03/26/16 9:00:00 DUST HANDLER Notes: (Same as: Risperdal) Start Date: 02/25/16 Stop Date: 02/26/16 Status: DiscontinuedrisperiDONE 0.5 mg oral tablet 0.5 mg=1 tab, PO, Q12H, 0 Refill(s) Start Date: 03/31/16 Status: SuspendedRobaxin 750 mg, 1 tab, Route: PO, Drug form: TAB, TID, Dosing Weight 100, kg, Start date : 03/27/16 16:00:00 DUST HANDLER, Duration: 30 day, Stop date: 04/26/16 14:00:00 DUST HANDLER Notes: (Same as:Robaxin) Start Date: 03/27/16 Stop Date: 03/31/16 Status: DiscontinuedRoxicodone 5 mg, 1 tab, Route: PO, Drug form: TAB, Q4H, Dosing Weight 100, kg, PRN Pain Score 4-6, Start date: 03/18/16 9:21:00 DUST HANDLER, Duration: 1 day, Stop date: 9:20:00 DUST HANDLER Notes: (Same as: Roxicodone) Start Date: 03/18/16 Stop Date: 03/18/16 Status: DiscontinuedSaline Flush 0.9% 10 mL, Route: IVP, Drug Form: INJ, kg, PRN, PRN Line Flush, Start date: 11:24:00 CDT, Duration: 30 day, Stop date: 04/12/16 10:23:00 DUST HANDLER Notes: (Same as: BD Posiflush) Start Date: 02/12/16 Stop Date: 03/31/16 Status: Discontinuedsenna 17.2 mg, 2 tab, Route: PO, Drug Form: TAB, Dosing Weight 100, kg, Q12H, Start date: 02/16/16 21:00:00 CDT, Duration: 30 day, Stop date: 03/17/16 9:00:00 DUST HANDLER Notes: (Same as: Senokot) Start Date: 02/16/16 Stop Date: 02/29/16 Status: Discontinuedsenna 17.2 mg, 2 tab, Route: PO, Drug Form: TAB, Dosing Weight 100, kg, Daily, Start date: 03/01/16 9:00:00 DUST HANDLER, Duration: 30 day, Stop date: 03/30/16 9:00:00 DUST HANDLER Notes: (Same as: Senokot) Start Date: 03/01/16 Stop Date: 03/02/16 Status: DiscontinuedSEROquel 25 mg, 1 tab, Route: PO, Drug form: TAB, Bedtime, Dosing Weight 100, kg, Start date: 03/03/16 22:48:00 DUST HANDLER, Duration: 30 day, Stop date: 05/02/16 21:00:00 DUST HANDLER Notes: (Same as: SEROquel) Start Date: 03/03/16 Stop Date: 03/31/16 Status: DiscontinuedSEROquel 50 mg, Route: PO, Drug form: TAB, Bedtime, Dosing Weight 100, kg, Start date: 21:00:00 DUST HANDLER,Duration: 30 day, Stop date: 03/24/16 21:00:00 DUST HANDLER Start Date: 02/24/16 Stop Date: 02/23/16 Status: CanceledSEROquel 50 mg, 2 tab, Route: PO, Drug form: TAB, Bedtime, Dosing Weight 100, kg, Priority: NOW, Start date: 02/23/16 21:58:00 DUST HANDLER, Duration: 30 day, Stop date: 03/24/16 21:00:00 DUST HANDLER Notes: (Same as: SEROquel) Start Date: 02/23/16 Stop Date: 02/23/16 Status: Discontinuedsodium chloride 0.9% 1000 ml INJ 1,000 mL 1,000 mL, Rate: 100 ml/hr, Infuse over: 10 hr, Route: IV, Dosing Weight 100 kg, Total Volume: 1,000,Start date: 03/21/16 0:01:00 DUST HANDLER, Duration: 30 day, Stop date: 04/20/16 0:00:00 DUST HANDLER Start Date: 03/21/16 Stop Date: 03/23/16 Status: Discontinuedsodium chloride 0.9% 1000 ml INJ 1,000 mL + M.V.I.-12 10 mL Daily + folic acid IV 1 mg Daily + thia 1,000 mL, Rate: 100 ml/hr, Infuse over: 10.1 hr, Route: IV, Dosing Weight 100 kg , Total Volume: 1,011.2, Start date: 02/19/16 13:51:00 CDT, Duration: 3 day, Stop date: 02/22/16 13:50:00 DUST HANDLER Start Date: 02/19/16 Stop Date: 02/21/16 Status: Discontinuedsodium phosphate + sodium chloride 0.9% INJ 250 mL 30 mmol, 10 mL, Route: IVPB, ONCE, Dosing Weight 100, kg, Start date: 02/15/16 4 :57:00 CDT, Stop date: 02/15/16 4:57:00 CDT Start Date: 02/15/16 Stop Date: 02/15/16 Status: Completedsugammadex 200 mg, 2 mL, Route: IV, Drug form: SOLN, ONCALL, Start date: 03/08/16 14:00:00 DUST HANDLER, Duration: 1 day, Stop date: 03/09/16 13:59:00 DUST HANDLER Notes: (Same as: Bridion) Start Date: 03/08/16 Stop Date: 03/31/16 Status: Discontinuedsugammadex 200 mg, 2 mL, Route: IV, Drug form: SOLN, ONCE, Start date: 03/06/16 14:40:00 DUST HANDLER, Stop date: 03/06/16 14:40:00 DUST HANDLER Notes: (Same as: Bridion) Start Date: 03/06/16 Stop Date: 03/06/16 Status: Completedsugammadex 500 mg, 5 mL, Route: IV, Drug form: SOLN, ONCE, Start date: 02/29/16 14:27:00 DUST HANDLER, Stop date: 02/29/16 14:27:00 DUST HANDLER Notes: (Same as: Bridion) Start Date: 02/29/16 Stop Date: 02/29/16 Status: Completedtamsulosin 0.4 mg, 1 cap, Route: PO, Drug form: CAP, After Breakfast, Dosing Weight 100, kg , Start date: 02/15/16 9:30:00 CDT, Duration: 30 day, Stop date: 03/16/16 8:30: 00 DUST HANDLER Notes: (Same As: Flomax) "Do Not Crush" Start Date: 02/15/16 Stop Date: 02/18/16 Status: Discontinuedthiamine 100 mg, 1 tab, Route: PO, Drug form: TAB, Daily, Dosing Weight 100, kg, Start date: 02/12/16 17:13:00 CDT, Duration: 30 day, Stop date: 03/13/16 9:00:00 DUST HANDLER Notes: (Same As: Vitamin B1) Start Date: 02/12/16 Stop Date: 02/16/16 Status: Discontinuedthiamine 100 mg, 1 tab, Route: PO, Drug form: TAB, Daily, Dosing Weight 100, kg, Start date: 02/19/16 10:30:00 CDT, Duration: 5 day, Stop date: 02/24/16 9:00:00 DUST HANDLER Notes: (Same As: Vitamin B1) Start Date: 02/19/16 Stop Date: 02/19/16 Status: Discontinuedtramadol 50 mg oral tablet 50 mg, 1 tab, Route: PO, Drug form: TAB, Q6H, Dosing Weight 100, kg, Priority: STAT, Start date: 02/12/16 12:38:00 CDT, Stop date: 03/13/16 12:00:00 DUST HANDLER Notes: Not to exceed 400mg/day. (Same As: Ultram) Start Date: 02/12/16 Stop Date: 02/17/16 Status: DiscontinuedTums 500 mg, 1 tab, Route: CHEW, Drug form: CHEWTAB, ONCE, Dosing Weight 100, kg, PRN Indigestion, Start date: 02/14/16 4:18:00 CDT Notes: (Same As: Tums)Calcium Carbonate 500 [id number] mg elemental calcium Dose=_ mg calcium carbonate ( mg elemental calcium) Start Date: 02/14/16 Stop Date: 02/14/16 Status: CompletedTylenol 1,000 mg, 2 tab, Route: PO, Drug form: TAB, Q6Hnow, Dosing Weight 100, kg, Priority: STAT, Start date: 02/12/16 12:36:00 CDT, Stop date: 04/12/16 12:00:00 DUST HANDLER Notes: Max acetaminophen 4000 mg/day (4 gm/day). (Same as: Tylenol Extra Strength) Start Date: 02/12/16 Stop Date: 03/19/16 Status: DiscontinuedValium 20 mg, 2 tab, Route: PO, Drug form: TAB, Q8H, Dosing Weight 100, kg, Start date : 02/23/16 0:00:00 DUST HANDLER, Duration: 30 day, Stop date: 03/23/16 16:00:00 DUST HANDLER Notes: (Same as: Valium) Start Date: 02/23/16 Stop Date: 02/24/16 Status: DiscontinuedValium 5 mg, Route: IV, Drug form: INJ, Q4H, Dosing Weight 100, kg, PRN Withdrawal, Start date: 02/14/16 7:17:00 CDT, Duration: 30 day, Stop date: 03/15/16 7:16:00 DUST HANDLER Notes: (Same as: Valium)WASTE: F/P - Black; E - White/Blue Start Date: 02/14/16 Stop Date: 02/14/16 Status: DiscontinuedValium 30 mg, Route: PO, Drug form: TAB, Q8H, Dosing Weight 100, kg, Priority: NOW, Start date: 02/16/16 11:21:00 CDT, Stop date: 03/17/16 8:00:00 DUST HANDLER Start Date: 02/16/16 Stop Date: 02/16/16 Status: DiscontinuedValium 30 mg, 3 tab, Route: PO, Drug form: TAB, Q4H, Dosing Weight 100, kg, Start date : 02/14/16 19:01:00 CDT, Stop date: 03/30/16 12:00:00 DUST HANDLER Notes: (Same as: Valium) Start Date: 02/14/16 Stop Date: 02/16/16 Status: DiscontinuedValium 10 mg, 1 tab, Route: PO, Drug form: TAB, Q6H, Dosing Weight 100, kg, Start date : 02/14/16 18:00:00 CDT, Duration: 30 day, Stop date: 03/15/16 12:00:00 DUST HANDLER Notes: (Same as: Valium) Start Date: 02/14/16 Stop Date: 02/14/16 Status: DiscontinuedValium 10 mg, 2 mL, Route: IV, Drug form: INJ, Q2H, Dosing Weight 100, kg, PRN Withdrawal, Start date: 02/14/16 17:29:00 CDT, Stop date: 03/15/16 17:28:00 DUST HANDLER Notes: (Same as: Valium)WASTE: F/P - Black; E - White/Blue Start Date: 02/14/16 Stop Date: 02/14/16 Status: DiscontinuedValium 30 mg, 3 tab, Route: PO, Drug form: TAB, Q8H, Dosing Weight 100, kg, Priority: Routine, Start date: 02/16/16 16:00:00 CDT, Duration: 30 day, Stop date: 8:00:00 DUST HANDLER Notes: (Same as: Valium) Start Date: 02/16/16 Stop Date: 02/18/16 Status: DiscontinuedValium 40 mg, 4 tab, Route: PO, Drug form: TAB, Q8H, Dosing Weight 100, kg, Start date : 02/18/16 16:00:00 CDT, Duration: 30 day, Stop date: 03/19/16 8:00:00 DUST HANDLER Notes: (Same as: Valium) Start Date: 02/18/16 Stop Date: 02/22/16 Status: DiscontinuedValium 10 mg, 2 mL, Route: IV, Drug form: INJ, ONCE, Dosing Weight 100, kg, Start date : 02/14/16 18:43:00 CDT, Stop date: 02/14/16 18:43:00 CDT Notes: (Same as: Valium)WASTE: F/P - Black; E - White/Blue Start Date: 02/14/16 Stop Date: 02/14/16 Status: CompletedValium 5 mg, 1 mL, Route: IV, Drug form: INJ, Q4H, Dosing Weight 100, kg, PRN Withdrawal, Start date: 02/12/16 17:12:00 CDT, Duration: 30 day, Stop date: 17:11:00 DUST HANDLER Notes: (Same as: Valium)WASTE: F/P - Black; E - White/Blue Start Date: 02/12/16 Stop Date: 02/13/16 Status: DiscontinuedValium 5 mg, 1 tab, Route: PO, Drug form: TAB, QID, Dosing Weight 100, kg, Start date: 02/13/16 13:00:00 CDT, Duration: 30 day, Stop date: 03/14/16 9:00:00 DUST HANDLER Notes: (Same as: Valium) Start Date: 02/13/16 Stop Date: 02/14/16 Status: DiscontinuedValium 5 mg, 1 mL, Route: IV, Drug form: INJ, ONCE, Dosing Weight 100, kg, Start date: 02/14/16 17:30:00 CDT, Stop date: 02/14/16 17:30:00 CDT Notes: (Same as: Valium)WASTE: F/P - Black; E - White/Blue Start Date: 02/14/16 Stop Date: 02/14/16 Status: Completedvancomycin 1.5 gm, Route: IVPB, Drug form: INJ, ABXQ6H, Dosing Weight 100, kg, Start date: 02/23/16 10:00:00 DUST HANDLER, Duration: 30 day, Stop date: 03/24/16 4:00:00 DUST HANDLER Start Date: 02/23/16 Stop Date: 02/23/16 Status: Canceledvancomycin 2,000 mg, 500 mL, Route: IVPB, Drug form: SOLN, ONCE, Dosing Weight 100, kg, Priority: STAT, Start date: 02/23/16 9:09:00 DUST HANDLER, Stop date: 02/23/16 9:09:00 DUST HANDLER Notes: TIME CRITICAL MEDICATIONSame as: Vancocin Infusion rate< 1000 mg: infuse over 1 [id number] - 1500 mg: infuse over 1.5 [id number] - 2000 mg: infuse over 2 hours> 2001 mg: infuse over 2.5 hours Start Date: 02/23/16 Stop Date: 02/23/16 Status: Completedvancomycin 1.25 gm, 250 mL, Stop date: 02/24/16 10:30:00 DUST HANDLER Notes: TIME CRITICAL MEDICATIONSame as: Vancocin-NS (premixed)Infusion rate< 1000 mg: infuse over1 [id number] - 1500 mg: infuse over 1.5 [id number] - 2000 mg: infuse over 2 hours> 2001 mg: infuse over 2.5 hours Start Date: 02/24/16 Stop Date: 02/24/16 Status: Completedvancomycin 1.5 gm, 250 mL, Route: IVPB, Drug form: INJ, ABXQ6H, Dosing Weight 100, kg, Start date: 02/23/16 15:30:00 DUST HANDLER, Duration: 30 day, Stop date: 03/24/16 9:30: 00 DUST HANDLER Notes: TIME CRITICAL MEDICATIONSame as: Vancocin-NS (premixed)Infusion rate< 1000 mg: infuse over1 [id number] - 1500 mg: infuse over 1.5 [id number] - 2000 mg: infuse over 2 hours> 2001 mg: infuse over 2.5 hours Start Date: 02/23/16 Stop Date: 02/24/16 Status: DiscontinuedVersed 2 mg, 2 mL, Route: IVP, Drug form: INJ, ONCE, Dosing Weight 100, kg, Start date : 03/01/16 10:41:00 DUST HANDLER, Stop date: 03/01/16 10:41:00 DUST HANDLER Notes: (Same as: Versed) MEDICATION WASTE Product Size: 2 mgProduct Wasted: ___ mg Start Date: 03/01/16 Stop Date: 03/01/16 Status: CompletedVersed 2 mg, Route: IVP, ONCE, Dosing Weight 100, kg, Start date: 03/01/16 11:15:00 DUST HANDLER , Stop date: 03/01/16 11:15:00 DUST HANDLER Start Date: 03/01/16 Stop Date: 03/01/16 Status: CompletedVersed 2 mg, 2 mL, Route: IVP, Drug form: INJ, PRN, Dosing Weight 100, kg, PRN Other - See Comment, agitation, MRI, Start date: 03/01/16 8:19:00 DUST HANDLER, Duration: 2 day, Stop date: 03/03/16 10:15:00 DUST HANDLER Notes: (Same as: Versed) MEDICATION WASTE Product Size: 2 mgProduct Wasted: ___ mg Start Date: 03/01/16 Stop Date: 03/03/16 Status: CompletedVersed 2 mg, Route: IVP, ONCE, Dosing Weight 100, kg, Start date: 03/01/16 11:15:00 DUST HANDLER , Stop date: 03/01/16 11:15:00 DUST HANDLER Start Date: 03/01/16 Stop Date: 03/01/16 Status: CompletedVisipaque 320mg/ml 100 mL, Route: IVP, Drug Form: SOLN, Dosing Weight 100, kg, ONCALL, STAT, Start date: 02/21/16 16:55:00 DUST HANDLER, Duration: 1 doses or times, Stop date: 02/22/16 0: 00:00 DUST HANDLER, Dose=2.2ml/kg, Max [id number] -- "To be infused by Radiology Staff ONLY" Notes: (Same as: Chanteipaque).WASTE: F/P - Black; E - Municipal Trash Bin Start Date: 02/21/16 Stop Date: 03/31/16 Status: DiscontinuedVisipaque 320mg/ml 120 mL, Route: IVP, Drug Form: SOLN, kg, ONCALL, STAT, Start date: 02/12/16 11: 39:00 CDT, Duration: 1 doses or times, Dose=2.2ml/kg, Max [id number] -- "To be infused by Radiology Staff ONLY" Notes: (Same as: Visipaque).WASTE: F/P - Black; E - Municipal Trash Bin Start Date: 02/12/16 Stop Date: 02/12/16 Status: Completedzinc oxide topical 20% ointment 1 appl, Route: TOP, PRN, Drug form: OINT, PRN Diaper Rash, Start date: 03/02/16 18:16:00 DUST HANDLER, Duration: 30 day, Stop date: 04/01/16 18:15:00 DUST HANDLER Start Date: 03/02/16 Stop Date: 03/02/16 Status: Deletedzinc oxide topical 40% ointment 1 appl, Route: TOP, PRN, Drug form: OINT, PRN Diaper Rash, Start date: 03/02/16 19:01:00 DUST HANDLER, Duration: 30 day, Stop date: 05/01/16 19:00:00 DUST HANDLER Notes: Same as: Desitin Start Date: 03/02/16 Stop Date: 03/31/16 Status: DiscontinuedZofran 4 mg, 2 mL, Route: IVP, Drug form: INJ, ONCE, Dosing Weight 100, kg, Start date : 02/12/16 19:15:00 CDT, Stop date: 02/12/16 19:15:00 CDT Notes: (Same as: Zofran) MEDICATION WASTE Product Size: 4 mgProduct Wasted: ___ mg Start Date: 02/12/16 Stop Date: 02/12/16 Status: CompletedZofran 4 mg, Route: IVP, Drug form: INJ, ONCE, Dosing Weight 100, kg, Priority: STAT, Start date: 02/12/16 14:46:00 CDT, Stop date: 02/12/16 14:46:00 CDT Start Date: 02/12/16 Stop Date: 02/12/16 Status: CompletedZofran 4 mg, 2 mL, Route: IVP, Drug form: INJ, ONCE, Dosing Weight 100, kg, Start date : 02/12/16 17:13:00 CDT, Stop date: 02/12/16 17:13:00 CDT Notes: (Same as: Zofran) MEDICATION WASTE Product Size: 4 mgProduct Wasted: ___ mg Start Date: 02/12/16 Stop Date: 02/12/16 Status: CompletedZofran 4 mg, 2 mL, Route: IVP, Drug form: INJ, ONCE, Dosing Weight 100, kg, Start date : 02/12/16 21:37:00 CDT, Stop date: 02/12/16 21:37:00 CDT Notes: (Same as: [place]) MEDICATION WASTE Product Size: 4 mgProduct Wasted: ___ mg Start Date: 02/12/16 Stop Date: 02/12/16 Status: CompletedZofran 4 mg, 2 mL, Route: IVP, Drug form: INJ, ONCE, Dosing Weight 100, kg, Start date : 02/14/16 16:46:00 CDT, Stop date: 02/14/16 16:46:00 CDT Notes: (Same as: Shannaan) MEDICATION WASTE Product Size: 4 mgProduct Wasted: ___ mg Start Date: 02/14/16 Stop Date: 02/14/16 Status: Completed Results BLOOD BANK RESULTS Most recent to oldest 1 2 3 [Reference Range]: ABO/Rh A NEG A NEG A NEG *Unknown* *Unknown* *Unknown* (03/18/16 6:23 AM) (03/14/16 2:11 AM) (03/08/16 12:42 AM) Antibody Scrn Negative Negative Negative (03/18/16 6:23 AM) (03/14/16 2:11 AM) (03/08/16 12:42 AM) FFP product Product available (02/22/16 10:30 AM) RBC product Product available Product available (02/25/16 12:09 AM) (02/22/16 10:30 AM) ELECTROLYTES Most recent to oldest 1 2 3 [Reference Range]: Sodium Lvl [135-145 mEq/L] 138 mEq/L 139 mEq/L 139 mEq/L (03/31/16 6:16 AM) (03/30/16 6:13 AM) (03/29/16 6:10 AM) Potassium Lvl [3.5-5.1 4.6 mEq/L 4.2 mEq/L 4.5 mEq/L mEq/L] (03/31/16 6:16 AM) (03/30/16 6:13 AM) (03/29/16 6:10 AM) Chloride Lvl [95-109 mEq/L] 103 mEq/L 104 mEq/L 106 mEq/L (03/31/16 6:16 AM) (03/30/16 6:13 AM) (03/29/16 6:10 AM) CO2 [24-32 mEq/L] 27 mEq/L 25 mEq/L 27 mEq/L (03/31/16 6:16 AM) (03/30/16 6:13 AM) (03/29/16 6:10 AM) AGAP [10.0-20.0 mEq/L] 12.6 mEq/L 14.2 mEq/L 10.5 mEq/L (03/31/16 6:16 AM) (03/30/16 6:13 AM) (03/29/16 6:10 AM) CHEM PANEL Most recent to oldest 1 2 3 [Reference Range]: Creatinine Lvl [0.50-1.40 0.75 mg/dL 0.94 mg/dL 0.69 mg/dL mg/dL] (03/31/16 6:16 AM) (03/30/16 6:13 AM) (03/29/16 6:10 AM) eGFR 103 mL/min/1.73m2 1 91 mL/min/1.73m2 2 107 mL/min/1.73m2 3 *NA* *NA* *NA* (03/31/16 6:16 AM) (03/30/16 6:13 AM) (03/29/16 6:10 AM) BUN [7-22 mg/dL] 8 mg/dL 8 mg/dL 8 mg/dL (03/31/16 6:16 AM) (03/30/16 6:13 AM) (03/29/16 6:10 AM) Glucose Lvl [70-99 mg/dL] 98 mg/dL 132 mg/dL 89 mg/dL (03/31/16 6:16 AM) *HI* (03/29/16 6:10 AM) (03/30/16 6:13 AM) Total Protein [6.4-8.4 6.0 g/dL g/dL] *LOW* (02/28/16 5:39 PM) Albumin Lvl [3.5-5.0 g/dL] 1.9 g/dL *LOW* (02/28/16 5:39 PM) Globulin [2.7-4.2 g/dL] 4.1 g/dL (02/28/16 5:39 PM) A/G Ratio [0.7-1.6] 0.5 *LOW* (02/28/16 5:39 PM) Calcium Lvl [8.5-10.5 9.0 mg/dL 8.8 mg/dL 8.9 mg/dL mg/dL] (03/31/16 6:16 AM) (03/30/16 6:13 AM) (03/29/16 6:10 AM) Phosphorus [2.5-4.5 mg/dL] 3.6 mg/dL 3.3 mg/dL 2.8 mg/dL (03/26/16 4:18 AM) (03/08/16 12:42 AM) (03/06/16 12:41 AM) Magnesium Lvl [1.8-2.4 2.1 mg/dL 2.2 mg/dL 2.2 mg/dL mg/dL] (03/26/16 4:18 AM) (03/08/16 12:42 AM) (03/06/16 12:41 AM) ALT [0-65 unit/L] 23 unit/L (02/28/16 5:39 PM) AST [0-37 unit/L] 38 unit/L *HI* (02/28/16 5:39 PM) Alk Phos [39-136 unit/L] 149 unit/L *HI* (02/28/16 5:39 PM) Bili Total [0.2-1.3 mg/dL] 0.6 mg/dL 0.8 mg/dL (02/28/16 5:39 PM) (02/16/16 4:08 AM) Bili Direct [0.0-0.3 mg/dL] 0.3 mg/dL (02/28/16 5:39 PM) Bili Indirect [0.0-1.0 0.3 mg/dL mg/dL] (02/28/16 5:39 PM) Lactic Acid Lvl [0.5-2.2 1.5 mMol/L 1.9 mMol/L 4.8 mMol/L 4 mMol/L] (02/13/16 12:39 PM) (02/13/16 7:05 AM) *CRIT* (02/13/16 12:37 AM) Osmolality [280-300 343 mOsm/kg mOsm/kg] *HI* (02/12/16 4:36 PM) 1Result Comment: The eGFR is calculated using the CKD-EPI formula. In most young , healthy individualsthe eGFR will be >90 mL/min/1.73m2. The eGFR declines with age. An eGFR of 60-89 may be normal in some populations, particularly the elderly, for whom the CKD-EPI formula has not been extensively validated. Use of the eGFR is not recommended in the following populations: Individuals with unstable creatinine concentrations, including patients and those with serious co-morbid conditions. Patients with extremes in muscle mass or diet. The data above are obtained from the National Kid[employer] Education Program ( [employer]) which additionally recommends that when the eGFR is used in patients with extremes of body mass index for purposesof drug dosing, the eGFR should be multiplied by the estimated BMI.2Result Comment: The eGFR is calculated using the CKD-EPI formula. In most young, healthy individualsthe eGFR will be >90 mL/ min/1.73m2. The eGFR declines with age. An eGFR of 60-89 may be normal in some populations, particularly the elderly, for whom the CKD-EPI formula has not been extensively validated. Use of the eGFR is not recommended in the following populations: Individuals with unstable creatinine concentrations, including patients and those with serious co-morbid conditions. Patients with extremes in muscle mass or diet. The data above are obtained from the National [employer] Education Program ( [employer]) which additionally recommends that when the eGFR is used in patients with extremes of body mass index for purposesof drug dosing, the eGFR should be multiplied by the estimated BMI.3Result Comment: The eGFR is calculated using the CKD-EPI formula. In most young, healthy individualsthe eGFR will be >90 mL/ min/1.73m2. The eGFR declines with age. An eGFR of 60-89 may be normal in some populations, particularly the elderly, for whom the CKD-EPI formula has not been extensively validated. Use of the eGFR is not recommended in the following populations: Individuals with unstable creatinine concentrations, including patients and those with serious co-morbid conditions. Patients with extremes in muscle mass or diet. The data above are obtained from the [employer] Program ( [employer]) which additionally recommends that when the eGFR is used in patients with extremes of body mass index for purposesof drug dosing, the eGFR should be multiplied by the estimated BMI.4Result Comment: Critical Result(s) called to Priscila Viveros at 02/13/2016 02:19 by . Read back OK.CARDIAC ENZYMES Most recent to oldest [Reference Range]: 1 2 3 Total CK [12-191 unit/L] 238 unit/L *HI* (02/27/16 12:45 PM) CK MB [0.5-3.6 ng/mL] 1.0 ng/mL (02/27/16 12:45 PM) CK MB Index [0.0-2.5] 0.4 (02/27/16 12:45 PM) Troponin-T [0.000-0.100 ng/mL] 0.019 ng/mL (02/27/16 12:45 PM) Troponin-I [0.00-0.40 ng/mL] <0.02 ng/mL (02/27/16 12:45 PM) MYOGLOBIN Most recent to oldest [Reference Range]: 1 2 3 Myoglobin [25-72 ng/mL] 61 ng/mL (02/27/16 12:45 PM) PARATHYROID PROFILE Most recent to oldest 1 2 3 [Reference Range]: Ca Ion WB [1.05-1.25 mMol/L] 1.05 mMol/L 1.06 mMol/L 1.09 mMol/L (02/24/16 12:40 AM) (02/22/16 2:40 AM) (02/20/16 12:21 AM) Ca Norm WB [1.05-1.25 1.04 mMol/L 1.08 mMol/L 1.09 mMol/L mMol/L] *LOW* (02/22/16 2:40 AM) (02/20/16 12:21 AM) (02/24/16 12:40 AM) DRUG SCREEN Most recent to oldest [Reference Range]: 1 2 3 U Amph Scr [Negative] Negative *NA* (02/12/16 12:10 PM) U Britni Scr [Negative] Negative *NA* (02/12/16 12:10 PM) U Benzodia Scr [Negative] Negative *NA* (02/12/16 12:10 PM) U Cocaine Scr [Negative] Negative *NA* (02/12/16 12:10 PM) U Opiate Scr [Negative] Positive *ABN* (02/12/16 12:10 PM) U Phencyc Scr [Negative] Negative *NA* (02/12/16 12:10 PM) U Cannab Scr [Negative] Positive *ABN* (02/12/16 12:10 PM) UDS Note See Note (02/12/16 12:10 PM) TOXICOLOGY Most recent to oldest [Reference Range]: 1 2 3 Vanco Tr TND 0900 *NA* (02/24/16 3:11 AM) Vanco Tr 19.3 ug/ml *NA* (02/24/16 3:11 AM) Etoh (%) .247 % *NA* (02/12/16 11:25 AM) Ethanol Lvl 247 mg/dL *NA* (02/12/16 11:25 AM) URINE CHEM Most recent to oldest [Reference Range]: 1 2 3 U Creatinine 187.00 mg/dL *NA* (02/13/16 3:14 PM) U Sodium 12 mEq/L 33 mEq/L *NA* *NA* (02/13/16 3:14 PM) (02/12/16 12:10 PM) U Potassium 83.7 mEq/L 56.5 mEq/L *NA* *NA* (02/13/16 3:14 PM) (02/12/16 12:10 PM) U Chloride 14 mEq/L 66 mEq/L *NA* *NA* (02/13/16 3:14 PM) (02/12/16 12:10 PM) U Osmolality [300-800 mOsm/kg] 521 mOsm/kg (02/12/16 12:10 PM) URINE AND STOOL Most recent to oldest [Reference Range]: 1 2 3 UA Turbidity [Clear] Clear Clear (03/07/16 12:12 PM) (02/12/16 3:18 PM) UA Color [Yellow] Yellow Yellow *NA* *NA* (03/07/16 12:12 PM) (02/12/16 3:18 PM) UA pH [5.0-8.0] 7.5 (03/07/16 12:12 PM) UA pH [5.0-8.0] 5.5 (02/12/16 3:18 PM) UA Spec Grav [<=1.030] 1.008 (03/07/16 12:12 PM) UA Spec Grav [<=1.030] 1.020 (02/12/16 3:18 PM) UA Glucose [Negative mg/dL] Negative mg/dL *NA* (03/07/16 12:12 PM) UA Glucose [Negative] Negative (02/12/16 3:18 PM) UA Blood [Negative] Negative Large (03/07/16 12:12 PM) *ABN* (02/12/16 3:18 PM) UA Ketones [Negative mg/dL] Negative mg/dL *NA* (03/07/16 12:12 PM) UA Ketones [Negative] Negative *NA* (02/12/16 3:18 PM) UA Protein [Negative mg/dL] Negative mg/dL 100 mg/dL (03/07/16 12:12 PM) *ABN* (02/12/16 3:18 PM) UA Urobilinogen [0.1-1.0 mg/dL] <=1.0 mg/dL *NA* (03/07/16 12:12 PM) UA Urobilinogen [0.1-1.0 EU/dL] 0.2 EU/dL (02/12/16 3:18 PM) UA Bili [Negative] Negative Negative *NA* *NA* (03/07/16 12:12 PM) (02/12/16 3:18 PM) UA Leuk Est [Negative] Negative Negative (03/07/16 12:12 PM) (02/12/16 3:18 PM) UA Nitrite [Negative] Negative Negative (03/07/16 12:12 PM) (02/12/16 3:18 PM) UA WBC [0-5 /HPF] 1 /HPF (03/07/16 12:12 PM) UA WBC [None Seen] None Seen (02/12/16 3:18 PM) UA RBC [0-2 /HPF] <1 /HPF (03/07/16 12:12 PM) UA RBC [0-2] None Seen (02/12/16 3:18 PM) UA Bacteria [None Seen] None Seen (02/12/16 3:18 PM) UA Sq Epi None Seen *NA* (03/07/16 12:12 PM) UA Sq Epi [Few] None Seen (02/12/16 3:18 PM) UA Amorph Carlyn [None Seen /HPF] Occasional /HPF *ABN* (02/12/16 3:18 PM) UA Mucus [None Seen /LPF] Few /LPF *NA* (03/07/16 12:12 PM) UA Gran Cast [None Seen /LPF] 0-2 /LPF *ABN* (02/12/16 3:18 PM) IMMUNOLOGY Most recent to oldest [Reference Range]: 1 2 3 Prealbumin [18.0-45.0 mg/dL] 13.6 mg/dL 18.3 mg/dL *LOW* (03/09/16 6:00 AM) (03/24/16 1:00 AM) CRP [<=2.9 mg/L] 49.4 mg/L 13.1 mg/L *HI* *HI* (03/24/16 1:00 AM) (03/09/16 6:00 AM) HIV Ag/Ab 4th Gen [Negative] Negative *NA* (02/14/16 7:30 PM) HIV 1/2 Ab [Negative] Negative *NA* (02/14/16 7:30 PM) HIV. [Negative] Negative *NA* (02/14/16 7:30 PM) Hep Bs Ag [Negative] Negative Negative *NA* *NA* (02/14/16 7:39 PM) (02/14/16 7:30 PM) Hep B Core IgM [Negative] Negative *NA* (02/14/16 7:39 PM) Hep A IgM [Negative] Negative *NA* (02/14/16 7:39 PM) Hep C Ab Positive Positive *ABN* *ABN* (02/14/16 7:39 PM) (02/14/16 7:30 PM) HEMATOLOGY Most recent to oldest 1 2 3 [Reference Range]: WBC [3.7-10.4 K/CMM] 8.8 K/CMM 7.3 K/CMM 9.2 K/CMM (03/31/16 6:16 AM) (03/30/16 6:13 AM) (03/29/16 6:10 AM) RBC [4.70-6.10 M/CMM] 4.04 M/CMM 3.92 M/CMM 3.67 M/CMM *LOW* *LOW* *LOW* (03/31/16 6:16 AM) (03/30/16 6:13 AM) (03/29/16 6:10 AM) Hgb [14.0-18.0 g/dL] 12.4 g/dL 12.0 g/dL 11.3 g/dL *LOW* *LOW* *LOW* (03/31/16 6:16 AM) (03/30/16 6:13 AM) (03/29/16 6:10 AM) Hct [42.0-54.0 %] 37.4 % 36.4 % 34.0 % *LOW* *LOW* *LOW* (03/31/16 6:16 AM) (03/30/16 6:13 AM) (03/29/16 6:10 AM) MCV [80.0-94.0 fL] 92.5 fL 92.8 fL 92.7 fL (03/31/16 6:16 AM) (03/30/16 6:13 AM) (03/29/16 6:10 AM) MCH [27.0-31.0 pg] 30.7 pg 30.5 pg 30.7 pg (03/31/16 6:16 AM) (03/30/16 6:13 AM) (03/29/16 6:10 AM) MCHC [32.0-36.0 g/dL] 33.2 g/dL 32.8 g/dL 33.1 g/dL (03/31/16 6:16 AM) (03/30/16 6:13 AM) (03/29/16 6:10 AM) RDW [11.5-14.5 %] 14.8 % 15.3 % 14.9 % *HI* *HI* *HI* (03/31/16 6:16 AM) (03/30/16 6:13 AM) (03/29/16 6:10 AM) Platelet [133-450 K/CMM] 316 K/CMM 296 K/CMM 285 K/CMM (03/31/16 6:16 AM) (03/30/16 6:13 AM) (03/29/16 6:10 AM) MPV [7.4-10.4 fL] 9.4 fL 9.3 fL 9.4 fL (03/31/16 6:16 AM) (03/30/16 6:13 AM) (03/29/16 6:10 AM) Segs [45.0-75.0 %] 36.0 % 30.7 % 33.9 % *LOW* *LOW* *LOW* (03/31/16 6:16 AM) (03/30/16 6:13 AM) (03/29/16 6:10 AM) Bands [0.0-11.0 %] 0.0 % (03/26/16 4:18 AM) Lymphocytes [20.0-40.0 %] 44.4 % 52.1 % 44.3 % *HI* *HI* *HI* (03/31/16 6:16 AM) (03/30/16 6:13 AM) (03/29/16 6:10 AM) Atypical Lymphs [<=0.0 %] 0.0 % (03/26/16 4:18 AM) Monocytes [2.0-12.0 %] 14.2 % 11.5 % 16.4 % *HI* (03/30/16 6:13 AM) *HI* (03/31/16 6:16 AM) (03/29/16 6:10 AM) Eosinophils [0.0-4.0 %] 4.7 % 5.2 % 4.4 % *HI* *HI* *HI* (03/31/16 6:16 AM) (03/30/16 6:13 AM) (03/29/16 6:10 AM) Basophils [0.0-1.0 %] 0.7 % 0.5 % 1.0 % (03/31/16 6:16 AM) (03/30/16 6:13 AM) (03/29/16 6:10 AM) Segs-Bands # [1.5-8.1 3.2 K/CMM 2.2 K/CMM 3.1 K/CMM K/CMM] (03/31/16 6:16 AM) (03/30/16 6:13 AM) (03/29/16 6:10 AM) Lymphocytes # [1.0-5.5 3.9 K/CMM 3.8 K/CMM 4.1 K/CMM K/CMM] (03/31/16 6:16 AM) (03/30/16 6:13 AM) (03/29/16 6:10 AM) Monocytes # [0.0-0.8 1.2 K/CMM 0.8 K/CMM 1.5 K/CMM K/CMM] *HI* (03/30/16 6:13 AM) *HI* (03/31/16 6:16 AM) (03/29/16 6:10 AM) Eosinophils # [0.0-0.5 0.4 K/CMM 0.4 K/CMM 0.4 K/CMM K/CMM] (03/31/16 6:16 AM) (03/30/16 6:13 AM) (03/29/16 6:10 AM) Basophils # [0.0-0.2 0.1 K/CMM 0.1 K/CMM 0.1 K/CMM K/CMM] (03/31/16 6:16 AM) (03/29/16 6:10 AM) (03/28/16 4:57 AM) RBC Morph Normal Normal (03/26/16 4:18 AM) (02/13/16 12:37 AM) Anisocyte [None Seen] 1+ *ABN* (03/06/16 12:41 AM) Polychrom [None Seen] Moderate *ABN* (03/24/16 1:00 AM) Macrocyte [None Seen] 1+ 1+ 1+ *ABN* *ABN* *ABN* (02/22/16 2:40 AM) (02/21/16 2:46 AM) (02/20/16 12:21 AM) Plt Morph Normal Normal Normal (03/26/16 4:18 AM) (03/24/16 1:00 AM) (03/06/16 12:41 AM) PT [12.0-14.7 seconds] 14.0 seconds 13.2 seconds (02/22/16 2:40 AM) (02/16/16 4:08 AM) INR [0.85-1.17] 1.06 0.98 (02/22/16 2:40 AM) (02/16/16 4:08 AM) PTT [22.9-35.8 seconds] 35.4 seconds (02/22/16 2:40 AM) Anti-Xa Low Molecular 0.21 IU/mL 0.20 IU/mL 0.05 IU/mL Heparin *NA* *NA* *NA* (02/28/16 5:39 PM) (02/25/16 8:54 PM) (02/16/16 4:41 PM) ACT (TEG) Rapid [86-118 113 seconds 121 seconds seconds] (02/22/16 5:23 PM) *HI* (02/12/16 11:25 AM) Split Point Rapid 0.5 minutes 0.6 minutes *NA* *NA* (02/22/16 5:23 PM) (02/12/16 11:25 AM) R-time Rapid [0.4-0.7 0.7 minutes 0.8 minutes minutes] (02/22/16 5:23 PM) *HI* (02/12/16 11:25 AM) K-time Rapid [0.6-2.3 0.8 minutes 1.2 minutes minutes] (02/22/16 5:23 PM) (02/12/16 11:25 AM) Angle Rapid [64-80 80 degrees 74 degrees degrees] (02/22/16 5:23 PM) (02/12/16 11:25 AM) Max Amplitude Rapid 78 mm 67 mm [52-71 mm] *HI* (02/12/16 11:25 AM) (02/22/16 5:23 PM) G-value Rapid [5.0-11.6 K 17.8 K d/sc 10.0 K d/sc d/sc] *HI* (02/12/16 11:25 AM) (02/22/16 5:23 PM) Estimated % Lysis Rapid 2.8 % 0.9 % [0.0-7.5 %] (02/22/16 5:23 PM) (02/12/16 11:25 AM) MOLECULAR DIAGNOSTIC Most recent to oldest [Reference Range]: 1 2 3 HCV RNA VirLoad [id number] IU/mL *NA* (02/15/16 8:25 AM) HCV RNA Log10 7.1 IU/mL *NA* (02/15/16 8:25 AM) Immunizations Given and Recorded Vaccine Date Status Refusal Reason influenza virus vaccine, inactivated 02/13/16 Given pneumococcal 23-valent vaccine 02/13/16 Given Procedures No data available for this section Social History Social History Type Response Substance Abuse Use: Current. Type: Marijuana. Recreational Drug Route: Oral. Amount: 1/2 ounce a week. Frequency: Daily. Previous Treatment: None. Started age 12 Years. IV drug use: Yes. Drug use interferes with work/home: Yes. Ready to change: No.1 Alcohol Current, Type Beer, Liquor. Frequency: Daily. Last use: 02/12/2016. Started age 11 Years. Previous treatment: None. Alcohol use interferes with work or home: Yes. Drinks more than intended: Yes. Others hurt by drinking: No. Ready to change: No. Smoking Status Current every day smoker; Type: Cigarettes; Tobacco use per day : 20; Number of years: 40; Previous treatment: None; Ready to change: Yes; Exposed at work; Lives with someone who smokes; Cigarette Smoking Last 365 Days Yes; Reg Smoking Cessation Counseling No 1all IV drugs- past history quit 10 yrs ago Assessment and Plan Extracted from: Title: Clinical Document Author: Jada Kidd NP Date: 03/31/16 Trauma Surgery Floor Progress Note: Today's Date: 03/31/16 Hospital Day # 48 Chief Complaint: "pain at WV sites" Overnight Events: NAEON Tertiary: Performed by: Brodie Jenkins NP on 02/14/2016 07:42 CDT In Hospital Operations: Surgical Procedures: (no date) WASHOUT, WOUND VAC EXCHANGE LEFT CHEST [id number] (primary surgeon unspecified) 03/21/16 18:01 WASHOUT OF LEFT CHEST WOUNDS, DELAYED PRIMARY CLOSURE OF LEFT THORACOTOMY WOUND, APPLICATION OF WOUND VAC [id number] Primary Surgeon: Romeo Kauffman MD (Service: GEN) 03/18/16 08:25 LEFT THORACOTOMY WOUND WASHOUT AND WOUND VAC EXCHANGE [id number] Primary Surgeon: Laurie Tamayo MD (Service: GEN) 03/14/16 08:47 wound vac exchange left chest and debridment of right leg [id number] Primary Surgeon: Kristian Guardado MD (Service: GEN) 03/14/16 08:22 wound vac exchange left chest and debridment of right leg [id number] Primary Surgeon: Kristian Guardado MD (Service: GEN) 03/11/16 17:08 NEGATIVE WOUND PRESSURE THERAPY GREATER THAN 50 CM SQ [id number] Primary Surgeon: Noble Alvarado MD (Service: GEN) 03/08/16 13:18 WASHOUT OF LEFT CHEST WALL WOUND VAC EXCHANGE [id number] Primary Surgeon: Keyur Pickett DO (Service: GEN) 03/06/16 12:21 CHEST WOUND VAC EXCHANGE [id number] Primary Surgeon: Shira Mcgrath MD (Service: GEN) 03/03/16 08:27 LEFT CHEST WOUND WASHOUT AND WOUND VAC PLACEMENT [id number] Primary Surgeon: Keyur Pickett DO (Service: GEN) 02/29/16 14:25 WASHOUT OF LEFT CHEST WOUND WITH WOUND VAC PLACEMENT, REMOVAL OF LEFT CHEST TUBE [id number] Primary Surgeon: Canelo Mcdaniel MD (Service: GEN) 02/25/16 08:44 Left thoractomy incision re opening and wound vac exchange [id number] Primary Surgeon: Kristian Guardado MD (Service: GEN) 02/22/16 11:33 Left anterior lateral thoracotomy, left chest tube placement x2 , evacuation of left hydrothorax, evacuation of left subcuatanous seroma, repair of left lower lobe laceration [id number] Primary Surgeon: Canelo Mcdaniel MD (Service: GEN) 02/22/16 10:11 Left anterior lateral thoracotomy, left chest tube placement x2 , evacuation of left hydrothorax, evacuation of left subcuatanous seroma, repair of left lower lobe laceration [id number] Primary Surgeon: Canelo Mcdaniel MD (Service: GEN) 02/14/16 08:33 OPEN REDUCTION INTERNAL FIXATION OF LEFT RIBS 4-9, POSTERIOR LATERAL THORACOTOMY, REPAIR OF DIAPHRAGM, EXPAREL RIB NERVE BLOCKADE [id number] Primary Surgeon: Romeo Kauffman MD (Service: GEN) 02/13/16 08:46 OPEN REDUCTION INTERNAL FIXATION LEFT CLAVICLE [id number] Primary Surgeon: Noble Fox MD (Service: ORT) (no date) DIAGNOSTIC LAPAROSCOPY, POSSIBLE DIAPHRAGM REPAIR, POSSIBLE EXPLORATORY LAPAROTOMY, POSSIBLE THORACOTOMY, AND ALL OTHER INDICATED PROCEDURES [id number] (primary surgeon unspecified) (no date) [id number] (primary surgeon unspecified) Daily Events: 02/11: admitted s/p fall, chest tube placed 02/12: OR with ORS for left clavicle ORIF 02/13: Plating of left 4-9 rib fractures and repair of diaphragmatic laceration. Transferred to STICU for DTs 02/14: Freeman replaced to remain in place for 3 days and initiated on flomax. Clonidine added for agitation with no PRN benzos needed during daytime. Remained low grade tachycardic with confusion. 02/15: The patient was less delirious in the AM and was more awake, but still only oriented to person but answering questions more appropriately. The patients tachycardia has largely normalized and the p atient is less agitated, but still requiring restraints. The diazepam dose was decreased to 30q8h, clonidine schedule changed to 0.2 q8h, with a goal of improving sleep hygiene and getting the patient O OB to neurochair. The CXR is improved from the previous day with a plan to waterseal the chest tube at 10 PM and obtain a morning CXR. Suppository added as no BM since admission and bowel regimen increased. 02/16: More alert today still confused, continue Valium and PRN Ativan. Freeman d /raffi 02/17: confused, however more alert, continue to treat alcohol withdraw 02/18 confused, intermittently agitated, continued treatment of alcohol withdrawal. CT accidently removed by patient. 02/19 confusion, slightly more cooperative today. F/U CXR no pneumothorax 02/20: worsening L pleural effusion on CXR, likely CT chest today; continue CIWA 02/21: CXR worsening; to OR for redo thoracotomy; Transfer to STICU 02/22: Extubated, vanc and ceftaz started, pleural fluid cultures growing gram neg rods 02/23: agitated, increased clonidine, added labetolol. repleted phos. failed swallow study. 02/24: OR today for wound vac exchange, returned to [facility] intubated 02/25: Extubated. RLE lac sutures removed 02/26: d/c wound vac- now dry dressings, coded requiring CPR 02/27: no acute events, OR was postponed to next day 02/28: WASHOUT OF LEFT CHEST, WOUND WITH WOUND VAC PLACEMENT, REMOVAL OF LEFT CHEST TUBE 03/01: added risperidal for agitation, dc freeman 03/03: S/p serial I&D and WVe of L chest 03/04: Respiratory distress after OR required HFNC, weaned to room air. 03/07: Transferred to from [facility] 03/06. Has sitter and restraints. Freeman reinserted and flomax started for urinary retention. OR tomorrow for WVE with trauma. WBC 17.1 (16.0) u/a negative 03/08: Left anterolateral thoracotomy wound washout and WVE. 03/09: no issues during the day, patient working with OT and PT. On restraints , and sitter by bedside. Trying to pull on tubes. 03/10: Patient started on diet dysphagia yesterday, tube feeds overnight 03/11: To undergo WVE and washout of his left upper chest wound 03/12: Patient pending disposition 03/13: RLE laceration repair dehiscence, will undergo washout tomorrow along with left chest wound. 03/14: s/p RLE and anterolateral thoracotomy wound washout. 03/15: no acute events 03/18: s/p WVE L CW wound 03/19: NAEON, AFVSS, pain regimen modified (+norco, removed oxy, increased gabapentin) 03/20: NAEON, AFVSS, pain regimen adjusted, pending OR for next WVE 03/21: NAEON, OR for L CW WVE, closure of thoracotomy wound 03/22: NAEON 03/23: NAEON 03/24: bedside WVE 03/25 KELLEY, pending WV takedown/exchange Friday 03/16: NAEON 03/26-dc'd Elizabeth and started on oxycodone for increased pain. 03/27-EKG/CXR done today.Pt c/o left sided chest pain.EKG with NSR.Robaxin prn started for spasms.WV exchange at bedside today.Pt wants dilaudid IV before dressing change. 03/28-Dressings changed on incisions/wounds.WV with good suction. 03/29: No acute events, clonidine and flomax discontinued 03/30: Will be discharge to TCU in am tomorrow for WV care; we will remove WV in am just prior to d/c and place w->d dressings on wounds. WV will be replaced by TCU staff after arrival there. 03/31: wound vac removed from the 2 posterior chest wounds and covered with wet to dry dressings. Patient to be discharged this am to TCU where the wound vac will be replaced and that facility will ch delia the WV 3 x week. Peer to Peer consult was done via phone with TCU physician yesterday. Physical Examination/Findings: Vitals Tmp(F) Tmp(C) Ttype BP MAP Pulse RR SpO2 FIO2 ETCO2 03/31 05:53 98.1 36.72 oral 133/97 --- 85 -- 100 --- --- 03/30 23:54 ---- ---- ---- 154/99 --- 86 20 100 --- --- 03/30 19:15 98.2 36.78 oral 122/88 --- 87 18 98 --- --- 03/30 16:57 98.8 37.11 oral 146/94 --- 82 -- 98 --- --- 03/30 11:00 98.8 37.11 oral 146/85 --- 85 -- 96 --- --- 24 Hr Tmax: 98.8F (37.11c) at 03/30 16:57 Pain 8 (flank) Scheduled Meds (): 03/03/16 22:48 QUEtiapine (SEROquel) 25 mg PO Bedtime 03/20/16 18:01 acetaminophen-hydrocodone (Elizabeth 10/325 oral tablet) 1 tab PO Q6H 03/20/16 9:00 docusate 100 mg PO Daily 03/16/16 6:00 enoxaparin (Lovenox) 40 mg SUB-Q [id number] 03/20/16 17:00 gabapentin 800 mg PO Q8H 03/24/16 17:00 lidocaine topical (lidocaine topical patch (5% film)) 1 patch TOP Daily 02/21/16 9:00 multivitamin 1 tab PO Daily 02/25/16 10:00 nicotine 14 mg TOP Daily 03/19/16 17:00 polyethylene glycol 3350 (MiraLax) 17 gm PO BID 03/20/16 0:45 propranolol (Inderal) 10 mg PO Q8H 03/03/16 17:00 psyllium (Metamucil) 3.4 gm PO BID 02/15/16 9:00 remove patch 1 patch TOP Daily 02/24/16 21:00 remove patch 1 patch TOP Bedtime 03/01/16 21:00 risperiDONE (Risperdal) 0.5 mg PO Q12H PRN Meds (4): 03/20/16 14:34 haloperidol (Haldol) 2 mg PO TID 03/26/16 10:42 oxyCODONE (oxyCODONE 5 mg oral tablet) 5 mg PO Q4H x4 03/02/16 19:01 zinc oxide topical (zinc oxide topical 40% ointment) 1 appl TOP PRN Constitutional/Neuro/Psych: GCS: Eye: 4 Verbal: 4 Motor: 6 Total: 15 Sensation: grossly intact Judgement: cooperative and talkative; 1:1 sitter in room Orientation: A&O X3 Memory/mood: mood improved. HEENT: Eyes: EOMI Conjunctiva and Eye lids: atraumatic Pupils: equal and reactive Ears and Nose: no deformities Lips and Teeth: poor dentition, multiple missing teeth Neck: non-tender Cardiovascular: Cardiac examination: RRR Extremity Edema: none Pulse exam: LUE 2+ RUE 2+ LLE 2+ RLE 2+ Pulmonary: Inspection/effort: nonlabored, Thoracotomy wound closed with sutures c/d/ i.Mild redness around sutures, no drainage. 2 wounds adjacent to site packed WV - intact with good seal, draining minimal serous fluid.WV last exchaged at bedside 03/27. IS: 2000/1230 GI/Nutrition: Abdominal exam: soft nontender, non-distended Type of Diet: Regular Diet Last BM: 03/30 x2 Genitourinary: 03/31 0616 Glucose Lvl 98 BUN 8 Creatinine Lvl 0.75 Sodium Lvl 138 Potassium Lvl 4.6 Chloride Lvl 103 CO2 27 AGAP 12.6 Calcium Lvl 9.0 eGFR 103 Male scrotum: deferred Penis: deferred Freeman: none IVF: none 24 hr-I/O - 400/1275 24 hr urine count -1275 mL Infectious Disease/Hematology: 24 Hr Tmax: 98.8F (37.11c) at 03/30 16:57 WBC 8.8 RBC 4.04 L Hgb 12.4 L Hct 37.4 L MCV 92.5 MCH 30.7 MCHC 33.2 RDW 14.8 H Platelet 316 Antibiotics: none DVT prophylaxis: Enoxaparin (Lovenox) 40 mg SUB-Q Q12H Endocrine: 24 Hour Insulin requirements: none Musculoskeletal/Skin: Activity: OOB with assistance Weight bearing status: NWB LUE; WBAT RUE, LLE, RLE Skin/wound examination: right posterior knee with 3cm annular wound with granulation tissue present, no discharge, no signs of infection- dry dressing daily.Thoracotomy wound closed with sutures c/d/i, no drainage. 2 wounds on posterior left thorax-WV removed and wet to fdry dressing s applied - each 3.5 x 2.5cm both with pink granulation tissue Extremity examination: sensory and motor intact.c/o rt thigh pain- radiological images with no abnormality. manager e learning consult: non funded, TCU (if needs WVE) vs personal snf Assessment and Plan: 56M s/p 20ft fall. Injuries/Problems: Consults/Plans: 1. Left rib fractures 1-11 1. VEP, MMP, IS 2500 at goal, continue MMPC; s/p rib plating 02/13 2. Left pneumothorax 2. s/p L chest tube 02/13; pt d/c'd 02/18-->acute pleural effusion/hemothorax--> L chest tube replaced 02/21. OR 02/21 thoracotomy, decorticatioin; OR 02/24 Reopening of left anteriorolateral thoracotomy wound, washout, left chest WVE; s/p washout 03/18 3. Open left anterolateral thoracotomy wound 3. Multiple WVE and washouts (, 03/06, 03/08, 03/11, 03/18, 03/21). Thoracotomy wound closed 03/21. NEXT WVE 03/30 4. T3 superior endplate fracture and Left TP fx 4. ORS spine: no bracing; follow up with Dr. Navarro in 3 weeks, upright Tspine Xray (RESOLVED) 5. RIGHT leg laceration 5. Washout and closure with prolene in ED, sutures removed 02/25, WOUND DEHISCED (finding appreciated on 03/13, patient s/p washout on 03/14 of the RLE wound along wit h the left anterolateral thoracotomy wound). Continue simple topical dressing (4x4, paper tape) daily. 6. Left clavicle fracture 5. ORS: s/p ORIF 02/12 (RESOLVED) 7. Left scapular fracture 6. ORS: NWB LUE, pain control, PT exercises ( RESOLVED) 8. Diaphragm laceration 7. S/p repair 02/13 (RESOLVED) 9. Left Flank HTA 8. Hb stable, continue to monitor labs Additionally, will ... -Acute trauma pain: MMPC, still requring most PRN doses of norco/oxy, REGINA, continue regimen as of now -chronic alcohol - continue current meds, patient currently lying in bed, sitter by bedside. Clonidine d/raffi. Will start weaning propranolol. Dispo: Patient will be discharged to the TCU today for WV care (change q3d). See note above. He will f/u with trauma clinic and Ortho clinic Extracted from: Title: Clinical Document Author: Romeo Kauffman MD Date: 03/21/16 OPERATIVE REPORT DATE: 03/21/2016 TIME: 18:30 PRE-OPERATIVE DIAGNOSIS: Multiple left chest wall wounds. POST-OPERATIVE DIAGNOSIS: 1. Left posterolateral thoracotomy open wound (24 cm x 3 cm). 2. Left chest subcutaneous seroma cavity (24 cm x 14 cm) with counter incision x 2. PROCEDURE: 1. Delayed primary closure of left posterolateral thoracotomy wound. 2. Washout and NPWT exchange of seroma cavity wound. SURGEON: Berry Kauffman MD RESIDENT: Beronica Taylor MD ANESTHESIA: GETA. IV FLUIDS: 400 mL crytalloid. ESTIMATED BLOOD LOSS: Minimal. URINE OUTPUT: ND. SPECIMENS: None. DRAINS: None. PROSTHESIS: None. PACKING: Black NPWT sponge. INDICATIONS FOR PROCEDURE: 56M admitted to [facility] following a 20-foot fall. He suffered multiple left rib fractures requiring operative fixation, as well as a loculated left hemothorax requiring poste rolateral thoracotomy. As a result of his multiple operations, he has an open thoracotomy wound and subcutaneous seroma cavity that are being managed by NPWT. He requires NPWT exchange in the OR. DESCRIPTION OF PROCEDURE: The patient was taken to the operating room and placed in the supine position on the OR table. General anesthesia was induced, and an endotracheal tube was placed to secure th e airway. The prior NPWT dressings were removed. The patient was turned to the right lateral decubitus position on a beanbag. An axillary roll was placed, and he was secured to the table with silk tape. The left chest was prepped with Betadine and draped in a standard sterile fashion. 2 gm Ancef was administered for pre-operative antibiotics. A surgical time-out was completed in accordance with instit utional protocol, confirming the patient, procedure, side, and site. The wounds were explored. The thoracotomy wound measured 24 cm x 3 cm and was clean with a healthy, granulating base. There was no tunneling or undermining. The seroma cavity was measured at 24 cm in th e craniocaudal dimension and 14 cm in the transverse dimension. There were two counter incisions made at a previous operation that had been packed with black NPWT sponge to facilitate closure of the cav ity. The base of the wound appeared clean with healthy granulation tissue. Both wounds were irrigated with normal saline. The thoracotomy wound was mechanically debrided with a sterile scrub brush. The wound was then closed with a series of 2-0 nylon sutures using an interrupted vertical mattress technique. The seroma cavi ty was packed with two small black NPWT sponges inserted through the counter incisions. The sponges were connected above the skin with a sponge bridge secured with clear tape dressing. The system was co nnected to continuous suction at 125 mmHg. Sterile gauze dressing was applied to the throacotomy wound and secured with Medipore tape. General anesthesia was discontinued. The patient was returned to th e supine position and extubated on the OR table without incident. There were no immediate complications. Sponge and instrument counts were correct x 2 as reported by the OR staff. COMPLICATIONS: None. DISPOSITION: Stable to PACU. Extracted from: Title: PM&R Consult Note Author: Prudence Martínez MD Date: 03/13/16 Physical Medicine and Rehabilitation Consultation Patient Name: Jose Montana Patient Referring physician: Keyur Pickett DO Chief complaints/Reason for Consult: Assessment for rehab needs, due to functional decline related to multiple trauma. The patient's chart was reviewed and summarized to formulate this consult. History of Present Illness: Patient is 56 yo male w PMH of alcohol use who lifefligthed to [facility] after a fall from 20 ft ladder on the left side of his body due to loss of balance ( trauma level 1). Found to have follo wing injuries and managements; T3 superior endplate fracture, left TP fx s/p ORS consult who recommend no brace needed and with f/u in [address] Navarro with upright T spine Xray, left clavicle f x s/p ORIF 02/12 by ORS, left scapula fx s/p NWB LUE by ORS, Diaphragm laceration s/p repair 02/13. left flank hematoma and left rib 1-11 fx s/p conservative tx and rib plating 02/13, left leg lacerati on s/p washout and closure at ED, and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
--- OUTSIDE RECORDS SUMMARY | 2018-05-21 13:43 | XMS REPORT ---
:1960 [facility] Address [address] [place] [address] [place] [address] Care Team Providers Name Role Phone Unavailable Unavailable Unavailable Problems This patient has no known problems. Allergies, Adverse Reactions, Alerts This patient has no known allergies or adverse reactions. Medications This patient has no known medications.
--- OUTSIDE RECORDS SUMMARY | 2018-05-21 13:43 | XMS REPORT | Summary of Care ---
:1960 Author Organization [facility] Address [address] [place] [id number]- Encounter HQ Benny(FIN) [id number] Date(s): 03/31/16 - 05/15/[address] [address]- Discharge Disposition: Home or Self Care Attending Physician: Jes Durand MD Admitting Physician: Jes Durand MD Referring Physician: Jes Durand MD Vital Signs Most recent to oldest 1 2 3 [Reference Range]: Height 187.96 cm (03/31/16 12:23 PM) Temperature Oral [96.4-99.1 97.8 DegF 98.6 DegF 98.0 DegF DegF] (05/15/16 8:00 AM) (05/14/16 8:00 PM) (05/14/16 4:00 PM) Blood Pressure [90-140/60-90 135/87 mmHg 142/82 mmHg 152/91 mmHg mmHg] (05/15/16 8:00 AM) *HI* *HI* (05/14/16 8:00 PM) (05/14/16 4:00 PM) Respiratory Rate [14-20 18 BRMIN 18 BRMIN 18 BRMIN BRMIN] (05/15/16 8:00 AM) (05/14/16 8:00 PM) (05/14/16 4:00 PM) Peripheral Pulse Rate [60-100 70 bpm 97 bpm 85 bpm bpm] (05/15/16 8:00 AM) (05/14/16 8:00 PM) (05/14/16 4:00 PM) Weight 100 kg (03/31/16 12:23 PM) Body Mass Index 28.31 m2 (03/31/16 12:23 PM) Problem List Condition Effective Dates Status Health Status Informant Alcohol abuse(Confirmed) Resolved Traumatic closed fx of eight or more Resolved ribs with minimal displacement(Confirmed) HTN (hypertension)(Confirmed) 2011 Resolved Hepatitis C(Confirmed) Resolved Allergies, Adverse Reactions, Alerts Substance Reaction Severity Status NKDA Active Medications ANES flumazenil 0.2 mg, 2 mL, Route: IVP, Drug form: INJ, PRN, Dosing Weight 100, kg, PRN Benzodiazepine Reversal, Initial dose, Start date: 04/26/16 15:13:00 STULL HEWER, Stop date: 04/26/16 23:00:00 STULL HEWER Notes: (Same as: Romazicon) Start Date: 04/26/16 Stop Date: 04/26/16 Status: DiscontinuedANES HYDROmorphone 0.5 mg, 0.5 mL, Route: IVP, Drug form: INJ, Q5Min, Dosing Weight 100, kg, PRN Pain Score 7-10, Startdate: 04/26/16 15:13:00 STULL HEWER, Duration: 4 doses or times, Stop date: 04/26/16 23:00:00 STULL HEWER Start Date: 04/26/16 Stop Date: 04/26/16 Status: CompletedANES naloxone 0.4 mg, 1 mL, Route: IVP, Drug form: INJ, Q2MIN, Dosing Weight 100, kg, PRN Narcotic Reversal, Startdate: 04/26/16 15:13:00 STULL HEWER, Duration: 8 doses or times , Stop date: 04/26/16 23:00:00 STULL HEWER Notes: Same as Narcan Start Date: 04/26/16 Stop Date: 04/26/16 Status: DiscontinuedANES ondansetron 4 mg, 2 mL, Route: IVP, Drug form: INJ, ONCE, Dosing Weight 100, kg, PRN Nausea & Vomiting, Start date: 04/26/16 15:13:00 STULL HEWER Notes: (Same as: Martinez) MEDICATION WASTE Product Size: 4 mgProduct Wasted: ___ mg Start Date: 04/26/16 Stop Date: 04/26/16 Status: DiscontinuedBD Normal Saline Flush 10 mL, Route: IVP, Drug Form: INJ, PRN, PRN Line Flush, Start date: 05/06/16 0: 17:00 STULL HEWER, Duration: 30 day, Stop date: 06/05/16 0:16:00 STULL HEWER Notes: (Same as: BD Posiflush) Start Date: 05/06/16 Stop Date: 05/15/16 Status: DiscontinuedDilaudid 1 mg, 1 mL, Route: IVP, Drug form: INJ, Daily, Dosing Weight 100, kg, PRN Pain Score 4-6, 30 mins before dressing change, Start date: 05/01/16 16:00:00 STULL HEWER, Duration: 30 day, Stop date: 05/31/16 15:59:00 STULL HEWER Start Date: 05/01/16 Stop Date: 05/15/16 Status: DiscontinuedDilaudid 0.5 mg, 0.5 mL, Route: IVP, Drug form: INJ, ONCE, Dosing Weight 100, kg, Priority: STAT, Start date:05/04/16 13:48:00 STULL HEWER, Stop date: 05/04/16 13:48:00 STULL HEWER Start Date: 05/04/16 Stop Date: 05/04/16 Status: CompletedDilaudid 0.5 mg, Route: IVP, ONCE, Dosing Weight 100, kg, Priority: STAT, Start date: 03/02 16:07:00 STULL HEWER, Stop date: 04/26/16 16:07:00 STULL HEWER Start Date: 04/26/16 Stop Date: 04/26/16 Status: CompletedDilaudid 1 mg, Route: IVP, ONCE, Dosing Weight 100, kg, PRN Other -See Comment, Start date: 05/04/16 11:57:00CST Start Date: 05/04/16 Stop Date: 05/04/16 Status: Completeddocusate sodium 100 mg oral capsule 100 mg=1 cap, PO, Daily, # 30 cap, 0 Refill(s) Start Date: 05/15/16 Status: Ordereddocusate sodium 100 mg oral capsule 100 mg, 1 cap, Route: PO, Drug form: CAP, Daily, Dosing Weight 100, kg, Start date: 04/01/16 9:00:00CST, Duration: 30 day, Stop date: 05/30/16 9:00:00 STULL HEWER Notes: (Same as: Colace) (Do Not Crush) Start Date: 04/01/16 Stop Date: 05/15/16 Status: Discontinuedenoxaparin 40 mg, 0.4 mL, Route: SUB-Q, Drug form: INJ, [id number], Dosing Weight 100, kg, Start date: 03/31/16 15:00:00 STULL HEWER, Duration: 30 day, Stop date: 04/29/16 15:00: 00 STULL HEWER Start Date: 03/31/16 Stop Date: 03/31/16 Status: DeletedfentaNYL 50 microgram, 1 mL, Route: IV, Drug form: INJ, PRN, Dosing Weight 100, kg, PRN Pain Score 7-10, Post-Op PACU, Start date: 04/26/16 15:13:00 STULL HEWER, Stop date: 03/02 23:00:00 STULL HEWER, Pediatric Dosing; For procedure; > 50 kg Notes: (Same as: Sublimaze) Preservative free. Start Date: 04/26/16 Stop Date: 04/26/16 Status: Discontinuedgabapentin 400 mg oral capsule 800 mg, 2 cap, Route: PO, Drug form: CAP, Q8H, Dosing Weight 100, kg, Start date : 03/31/16 16:00:00 STULL HEWER, Duration: 30 day, Stop date: 05/30/16 8:00:00 STULL HEWER Notes: (Same as: Neurontin) Start Date: 03/31/16 Stop Date: 05/15/16 Status: Discontinuedgabapentin 400 mg oral capsule 800 mg=2 cap, PO, Q8H, # 30 cap, 0 Refill(s) Start Date: 05/15/16 Status: OrderedHabitrol 14 mg, 1 patch, Route: TOP, Drug form: ERFILM, ONCE, Start date: 04/24/16 15:09: 00 STULL HEWER, Stop date: 04/24/16 15:09:00 STULL HEWER Notes: (Same as: Habitrol)"Remove old patch before application of new patch "WASTE: F/P - P Waste Black; E - P Waste Black Start Date: 04/24/16 Stop Date: 04/24/16 Status: Completedhaloperidol 2 mg, 1 tab, Route: PO, Drug form: TAB, TID, Dosing Weight 100, kg, PRN Agitation, Start date: 03/31/16 14:57:00 STULL HEWER, Duration: 30 day, Stop date: 05/30 14:56:00 STULL HEWER Notes: (Same as: Haldol) Start Date: 03/31/16 Stop Date: 05/15/16 Status: DiscontinuedhydrALAZINE 25 mg oral tablet 25 mg, 1 tab, Route: PO, Drug form: TAB, TID, Dosing Weight 100, kg, PRN Hypertension, Start date: 03/31/16 15:00:00 STULL HEWER, Duration: 30 day, Stop date: 14:59:00 STULL HEWER Notes: (Same as: Apresoline) May interfere w/enteral feedings Take With Food. Start Date: 03/31/16 Stop Date: 05/15/16 Status: DiscontinuedLactated Ringers 1,000 mL 1,000 mL, Rate: 25 ml/hr, Infuse over: 40 hr, Route: IV, Dosing Weight 100 kg, Total Volume: 1,000, Start date: 04/25/16 15:27:00 STULL HEWER, Duration: 30 day, Stop date: 05/25/16 15:26:00 STULL HEWER Start Date: 04/25/16 Stop Date: 04/28/16 Status: Discontinuedlidocaine 5 mL, Route: MISC, Drug form: SOLN, PRN, PRN Other -See Comment, Start date: 8:15:00 STULL HEWER, Duration: 30 day, Stop date: 06/03/16 8:14:00 STULL HEWER Notes: Preservative free. (Same as: Xylocaine-MPF) Start Date: 05/04/16 Stop Date: 05/15/16 Status: Discontinuedlidocaine 2% injectable solution 1 appl, Route: TOP, Dosing Weight 100, kg, Daily, PRN Wound Care, Start date: 16:05:00 STULL HEWER,Duration: 30 day, Stop date: 05/31/16 16:04:00 STULL HEWER Start Date: 05/01/16 Stop Date: 05/02/16 Status: Deletedlidocaine topical 2% spray 1 spray, Route: TOP, ONCE, Start date: 05/04/16 12:11:00 STULL HEWER, Stop date: 12:11:00 STULL HEWER Start Date: 05/04/16 Stop Date: 05/04/16 Status: Discontinuedlidocaine topical patch (5% film) 1 patch, Route: TOP, Daily, Drug form: FILM, Start date: 04/12/16 9:00:00 STULL HEWER, Duration: 30 day, Stop date: 06/10/16 9:00:00 STULL HEWER Notes: Apply only once for up to 12 hours in [id number] period (12 hours on and 12 hours off).(Same as: Lidoderm)"Remove old patch before application of new patch" Start Date: 04/12/16 Stop Date: 05/15/16 Status: Discontinuedlidocaine topical patch (5% film) 1 patch, Route: TOP, Daily, Drug form: FILM, Start date: 04/12/16 9:00:00 STULL HEWER, Duration: 30 day, Stop date: 06/10/16 9:00:00 STULL HEWER Notes: Apply only once for up to 12 hours in [id number] period (12 hours on and 12 hours off).(Same as: Lidoderm)"Remove old patch before application of new patch" Start Date: 04/12/16 Stop Date: 05/15/16 Status: Discontinuedlidocaine topical patch (5% film) 1 patch, TOP, Daily, Remove after 12 hours, # 30 patch, 0 Refill(s) Start Date: 05/15/16 Status: Orderedlidocaine topical patch (5% film) 1 patch, Route: TOP, Daily, Drug form: FILM, Start date: 04/01/16 9:00:00 STULL HEWER, Duration: 30 day, Stop date: 05/30/16 9:00:00 STULL HEWER Notes: Apply only once for up to 12 hours in [id number] period (12 hours on and 12 hours off).(Same as: Lidoderm)"Remove old patch before application of new patch" Start Date: 04/01/16 Stop Date: 05/15/16 Status: Discontinuedlisinopril 10 mg, 1 tab, Route: PO, Drug form: TAB, Daily, Dosing Weight 100, kg, Start date: 04/17/16 9:00:00 STULL HEWER, Duration: 30 day, Stop date: 06/15/16 9:00:00 STULL HEWER Notes: (Same as: Prinivil, Zestril) Start Date: 04/17/16 Stop Date: 05/15/16 Status: Discontinuedlisinopril 10 mg oral tablet 10 mg=1 tab, PO, Daily, # 30 tab, 0 Refill(s) Start Date: 05/15/16 Status: OrderedLovenox 40 mg, 0.4 mL, Route: SUB-Q, Drug form: INJ, Q24H, Start date: 04/01/16 6:00:00 STULL HEWER, Duration: 30 day, Stop date: 05/30/16 6:00:00 STULL HEWER Notes: (Same as: Lovenox) Start Date: 04/01/16 Stop Date: 05/15/16 Status: Discontinuedmethocarbamol 750 mg, 1 tab, Route: PO, Drug form: TAB, TID, Dosing Weight 100, kg, Start date : 03/31/16 17:00:00 STULL HEWER, Duration: 30 day, Stop date: 05/30/16 13:00:00 STULL HEWER Notes: (Same as:Robaxin) Start Date: 03/31/16 Stop Date: 05/15/16 Status: Discontinuedmorphine Sulfate 2 mg, 0.5 mL, Route: IVP, Drug form: SOLN, ONCE, Dosing Weight 100, kg, Start date: 04/28/16 14:41:00 STULL HEWER, Stop date: 04/28/16 14:41:00 STULL HEWER Notes: (Same as:MORPhine Sulfate) Start Date: 04/28/16 Stop Date: 04/28/16 Status: Completedmorphine Sulfate 2 mg, 0.5 mL, Route: IVP, Drug form: SOLN, ONCE, Dosing Weight 100, kg, Start date: 05/01/16 15:06:00 STULL HEWER, Stop date: 05/01/16 15:06:00 STULL HEWER Notes: (Same as:MORPhine Sulfate) Start Date: 05/01/16 Stop Date: 05/01/16 Status: Completedmultivitamin 1 tab, Route: PO, Drug Form: TAB, Dosing Weight 100, kg, Daily, Start date: 9:00:00 STULL HEWER, Duration: 30 day, Stop date: 05/30/16 9:00:00 STULL HEWER Notes: (Same as:Thera)WASTE: F/P - Black; E - Municipal Trash Bin Take with food. Start Date: 04/01/16 Stop Date: 05/15/16 Status: Discontinuednicotine 14 mg, 1 patch, Route: TOP, Drug form: ERFILM, Daily, Dosing Weight 100, kg, Start date: 04/01/16 9:00:00 STULL HEWER, Duration: 30 day, Stop date: 05/30/16 9:00:00 STULL HEWER Notes: (Same as: Habitrol)"Remove old patch before application of new patch "WASTE: F/P - P Waste Black; E - P Waste Black Start Date: 04/01/16 Stop Date: 05/15/16 Status: DiscontinuedNorco 10/325 oral tablet 1 tab, Route: PO, Drug Form: TAB, Dosing Weight 100, kg, Q4H, Start date: 12:00:00 STULL HEWER, Duration: 30 day, Stop date: 05/14/16 8:00:00 STULL HEWER Notes: Do not exceed 4gm/day of acetaminophen. (Same as: [place] 325/10) Start Date: 04/14/16 Stop Date: 04/26/16 Status: DiscontinuedNorco 10/325 oral tablet 1 tab, Route: PO, Drug Form: TAB, Dosing Weight 100, kg, Q6H, Start date: 18:00:00 STULL HEWER, Duration: 30 day, Stop date: 04/30/16 12:00:00 STULL HEWER Notes: Do not exceed 4gm/day of acetaminophen. (Same as: [place] 325/10) Start Date: 03/31/16 Stop Date: 04/14/16 Status: DiscontinuedNorco 5/325 oral tablet 1 tab, Route: PO, Drug Form: TAB, Dosing Weight 100, kg, ONCE, Start date: 04/26 21:00:00 STULL HEWER, Stop date: 04/26/16 21:00:00 STULL HEWER Notes: (Same as: [place] 325/5) Do not exceed 4gm/day of acetaminophen. Start Date: 04/26/16 Stop Date: 04/26/16 Status: CompletedNorco 5/325 oral tablet 2 tab, Route: PO, Drug Form: TAB, Dosing Weight 100, kg, Q6H, PRN Pain Score 6- 10, Start date: 05/02/16 12:47:00 STULL HEWER, Stop date: 06/01/16 12:46:00 STULL HEWER Notes: (Same as: [place] 325/5) Do not exceed 4gm/day of acetaminophen. Start Date: 05/02/16 Stop Date: 05/15/16 Status: DiscontinuedNorco 5/325 oral tablet 1 tab, Route: PO, Drug Form: TAB, Dosing Weight 100, kg, Q8H, PRN Pain Score 6- 10, Start date: 04/26/16 16:37:00 STULL HEWER, Duration: 30 day, Stop date: 05/26/16 16: 36:00 STULL HEWER Notes: (Same as: [place] 325/5) Do not exceed 4gm/day of acetaminophen. Start Date: 04/26/16 Stop Date: 05/02/16 Status: DiscontinuedoxyCODONE 5 mg oral tablet 10 mg, 2 tab, Route: PO, Drug form: TAB, Q12H, Dosing Weight 100, kg, Start date : 04/11/16 21:00:00 STULL HEWER, Duration: 30 day, Stop date: 05/11/16 9:00:00 STULL HEWER Notes: (Same as: Roxicodone) Start Date: 04/11/16 Stop Date: 04/11/16 Status: DiscontinuedoxyCODONE 5 mg oral tablet 5 mg, 1 tab, Route: PO, Drug form: TAB, Q4H, Dosing Weight 100, kg, PRN Pain Score 7-10, Start date:03/31/16 14:57:00 STULL HEWER, Duration: 30 day, Stop date: 04/30 14:56:00 STULL HEWER Notes: (Same as: Roxicodone) Start Date: 03/31/16 Stop Date: 03/31/16 Status: Discontinuedpolyethylene glycol 3350 17 gm, 1 pkt, Route: PO, Drug form: PWDR, BID, Dosing Weight 100, kg, Start date : 03/31/16 17:00:00 STULL HEWER, Duration: 30 day, Stop date: 05/30/16 9:00:00 STULL HEWER Notes: Dissolve in 8 oz of water or juice.(Same as: Miralax) Start Date: 03/31/16 Stop Date: 05/15/16 Status: Discontinuedpropranolol 10 mg, 1 tab, Route: PO, Drug form: TAB, Q8H, Dosing Weight 100, kg, Start date : 03/31/16 16:00:00 STULL HEWER, Duration: 30 day, Stop date: 05/30/16 8:00:00 STULL HEWER Notes: Give with food.(Same as: Inderal) Start Date: 03/31/16 Stop Date: 05/15/16 Status: Discontinuedpropranolol 10 mg oral tablet 10 mg=1 tab, PO, Q8H, # 90 tab, 0 Refill(s) Start Date: 05/15/16 Status: Orderedpsyllium 3.4 gm, 1 pkt, Route: PO, Drug Form: PDR/REC, Dosing Weight 100, kg, BID, Start date: 03/31/16 17:00:00 STULL HEWER, Duration: 30 day, Stop date: 05/30/16 9:00:00 STULL HEWER Notes: (Same as: Metamucil) Mix in 8 oz liquid with meal. Start Date: 03/31/16 Stop Date: 05/15/16 Status: DiscontinuedQUEtiapine 25 mg, 1 tab, Route: PO, Drug form: TAB, Bedtime, Dosing Weight 100, kg, Start date: 03/31/16 21:00:00 STULL HEWER, Duration: 30 day, Stop date: 05/29/16 21:00:00 STULL HEWER Notes: (Same as: SEROquel) Start Date: 03/31/16 Stop Date: 05/15/16 Status: Discontinuedremove patch 1 patch, Route: TOP, Bedtime, Drug form: ERFILM, Start date: 04/11/16 21:00:00 STULL HEWER, Duration: 30 day, Stop date: 06/09/16 21:00:00 STULL HEWER Notes: Remove patch 12 hours after application each day. Start Date: 04/11/16 Stop Date: 05/15/16 Status: DiscontinuedrisperiDONE 0.5 mg, 1 tab, Route: PO, Drug form: TAB, Q12H, Dosing Weight 100, kg, Start date: 03/31/16 21:00:00CST, Duration: 30 day, Stop date: 05/30/16 9:00:00 STULL HEWER Notes: (Same as: Risperdal) Start Date: 03/31/16 Stop Date: 05/15/16 Status: DiscontinuedRoxicodone 5 mg, 1 tab, Route: PO, Drug form: TAB, Q4H, PRN Pain Score 7-10, Start date: 16:01:00 STULL HEWER,Duration: 30 day, Stop date: 05/02/16 16:00:00 STULL HEWER Notes: (Same as: Roxicodone) Start Date: 04/02/16 Stop Date: 04/11/16 Status: DiscontinuedRoxicodone 5 mg, 1 tab, Route: PO, Drug form: TAB, Q4H, PRN Pain Score 7-10, Start date: 19:38:00 STULL HEWER,Duration: 30 day, Stop date: 05/11/16 19:37:00 STULL HEWER Notes: (Same as: Roxicodone) Start Date: 04/11/16 Stop Date: 04/21/16 Status: DiscontinuedRoxicodone 5 mg, 1 tab, Route: PO, Drug form: TAB, Q6H, PRN Pain Score 7-10, Start date: 17:08:00 STULL HEWER,Duration: 30 day, Stop date: 04/30/16 17:07:00 STULL HEWER Notes: (Same as: Roxicodone) Start Date: 03/31/16 Stop Date: 04/02/16 Status: DiscontinuedSodium Chloride 0.9% IV 250 mL, Route: IVPB, Start date: 05/06/16 0:17:00 STULL HEWER, Duration: 30 day, Stop date: 06/05/16 0:16:00CST, PRN Line Flush Start Date: 05/06/16 Stop Date: 05/15/16 Status: Discontinuedsodium hypochlorite topical 0.125% solution 1 appl, Route: TOP, BID, Drug form: SOLN, Start date: 04/18/16 17:00:00 STULL HEWER, Duration: 30 day, Stop date: 06/17/16 9:00:00 STULL HEWER Notes: (Dakin's (0.125%=1/4 strength) 473ml top SOLN) For external use only. Note: quarter strength=0.125% sodium hypochlorite. Start Date: 04/18/16 Stop Date: 05/15/16 Status: Discontinuedtramadol 50 mg oral tablet 50 mg, 1 tab, Route: PO, Drug form: TAB, ONCE, Start date: 04/29/16 12:33:00 STULL HEWER , Stop date: 04/29/16 12:33:00 STULL HEWER Notes: Not to exceed 400mg/day. (Same As: Ultram) Start Date: 04/29/16 Stop Date: 04/29/16 Status: Deletedtramadol 50 mg oral tablet 50 mg, 1 tab, Route: PO, Drug form: TAB, Q6H, Dosing Weight 100, kg, PRN Pain Score 4-6, Start date:04/29/16 9:59:00 STULL HEWER, Duration: 30 day, Stop date: 9:58:00 STULL HEWER Notes: Not to exceed 400mg/day. (Same As: Ultram) Start Date: 04/29/16 Stop Date: 05/05/16 Status: Discontinuedtramadol 50 mg oral tablet 50 mg, 1 tab, Route: PO, Drug form: TAB, Q6H, Dosing Weight 100, kg, PRN Pain Score 1-3, h8ibvil PRN, Start date: 05/06/16 0:08:00 STULL HEWER, Stop date: 06/05/16 23 :55:00 STULL HEWER Notes: Not to exceed 400mg/day. (Same As: Ultram) Start Date: 05/06/16 Stop Date: 05/15/16 Status: DiscontinuedTylenol with Codeine #3 oral tablet 1 tab, PO, Q6H, PRN Pain Score 7-10, # 24 tab, 0 Refill(s) Start Date: 05/15/16 Stop Date: 05/20/16 Status: OrderedTylenol with Codeine #3 oral tablet 1 tab, Route: PO, Drug Form: TAB, Dosing Weight 100, kg, Q6H, PRN Pain Score 7- 10, Start date: 05/15/16 16:37:00 STULL HEWER, Duration: 30 day, Stop date: 06/14/16 16: 36:00 STULL HEWER Notes: Do not exceed 4gm/day of acetaminophen. (Same as: Tylenol with Codeine # 3) Start Date: 05/15/16 Stop Date: 05/15/16 Status: Discontinued Results ELECTROLYTES Most recent to oldest [Reference Range]: 1 2 Sodium Lvl [135-145 mEq/L] 137 mEq/L (05/05/16 4:39 AM) Potassium Lvl [3.5-5.1 mEq/L] 4.2 mEq/L (05/05/16 4:39 AM) Chloride Lvl [95-109 mEq/L] 101 mEq/L (05/05/16 4:39 AM) CO2 [24-32 mEq/L] 27 mEq/L (05/05/16 4:39 AM) AGAP [10.0-20.0 mEq/L] 13.2 mEq/L (05/05/16 4:39 AM) CHEM PANEL Most recent to oldest [Reference Range]: 1 2 Creatinine Lvl [0.50-1.40 mg/dL] 0.80 mg/dL (05/05/16 4:39 AM) eGFR 101 mL/min/1.73m2 1 *NA* (05/05/16 4:39 AM) BUN [7-22 mg/dL] 11 mg/dL (05/05/16 4:39 AM) Glucose Lvl [70-99 mg/dL] 91 mg/dL (05/05/16 4:39 AM) Calcium Lvl [8.5-10.5 mg/dL] 9.3 mg/dL (05/05/16 4:39 AM) 1Result Comment: The eGFR is calculated using [...] eGFR should be multiplied by the estimated BMI.CARDIAC ENZYMES Most recent to oldest [Reference Range]: 1 2 Total CK [12-191 unit/L] 41 unit/L 38 unit/L (05/12/16 3:23 AM) (05/11/16 5:11 PM) Troponin-I [0.00-0.40 ng/mL] <0.02 ng/mL <0.02 ng/mL (05/12/16 3:23 AM) (05/11/16 5:11 PM) HEMATOLOGY Most recent to oldest [Reference Range]: 1 2 WBC [3.7-10.4 K/CMM] 8.7 K/CMM (05/05/16 4:39 AM) RBC [4.70-6.10 M/CMM] 4.67 M/CMM *LOW* (05/05/16 4:39 AM) Hgb [14.0-18.0 g/dL] 13.4 g/dL *LOW* (05/05/16 4:39 AM) Hct [42.0-54.0 %] 40.5 % *LOW* (05/05/16 4:39 AM) MCV [80.0-94.0 fL] 86.7 fL (05/05/16 4:39 AM) MCH [27.0-31.0 pg] 28.7 pg (05/05/16 4:39 AM) MCHC [32.0-36.0 g/dL] 33.1 g/dL (05/05/16 4:39 AM) RDW [11.5-14.5 %] 13.5 % (05/05/16 4:39 AM) Platelet [133-450 K/CMM] 325 K/CMM (05/05/16 4:39 AM) MPV [7.4-10.4 fL] 10.0 fL (05/05/16 4:39 AM) Segs [45.0-75.0 %] 31.4 % *LOW* (05/05/16 4:39 AM) Lymphocytes [20.0-40.0 %] 47.1 % *HI* (05/05/16 4:39 AM) Monocytes [2.0-12.0 %] 16.1 % *HI* (05/05/16 4:39 AM) Eosinophils [0.0-4.0 %] 4.3 % *HI* (05/05/16 4:39 AM) Basophils [0.0-1.0 %] 1.1 % *HI* (05/05/16 4:39 AM) Segs-Bands # [1.5-8.1 K/CMM] 2.7 K/CMM (05/05/16 4:39 AM) Lymphocytes # [1.0-5.5 K/CMM] 4.1 K/CMM (05/05/16 4:39 AM) Monocytes # [0.0-0.8 K/CMM] 1.4 K/CMM *HI* (05/05/16 4:39 AM) Eosinophils # [0.0-0.5 K/CMM] 0.4 K/CMM (05/05/16 4:39 AM) Basophils # [0.0-0.2 K/CMM] 0.1 K/CMM (05/05/16 4:39 AM) Immunizations Given and Recorded Vaccine Date [...] ago Assessment and Plan Extracted from: Title: Progress Note Author: Nishant Rivera MD Date: 05/14/16 Impression and Plan 1. S/p Trauma with multiple injuries with open wound on the left scapular area. S/p debridement. Will continue local wound care with a wound vac in place. Surgery to evaluate on Sunday. 2. Multiple rib fractures. Stable, conservative management. 3. Hypertension controlled- Continue lisinopil 4. History of alcohol abuse . Stable. 5. Tobacco dependence- On nicotine patch. 6. Decreased function on the upper extremities- Cont PT. 7. DVT ppx- On Lovenox sq. 8. Flank pain, atypical, serial enzymes negative. PLAN: Continue current management. Continue wound care. Getting vac changes twice a week. Discharge will depend on when Surgery advises to stop the wound vac. Extracted from: Title: General Admission H&P * Author: Junior Parkinson MD Date: 03/31 Impression and Plan H&P ID# [id number]
[2018-05-21 14:21] LABS: Protime INR 0.99
[2018-05-21 14:22] LABS: Absolute Lymphocytes (CBC) 1.4 K/uL (0.7-4.9); Absolute Monocytes 0.5 K/uL (0.1-1.3); Absolute Neutrophil 1.9 K/uL (1.8-8.0); Eosinophils % 1.1 % (0-4.4); Hematocrit 42.9 % (39.6-49.0); MPV 9.7 fL (7.6-11.3); RBC Red Blood Cell Count 4.15 M/uL (4.33-5.43)
[2018-05-21 14:43] LABS: ALT/SGPT 110 U/L (12-78); Albumin 3.3 g/dL (3.4-5.0); Alkaline Phosphatase 89 U/L (45-117); BUN Blood Urea Nitrogen 17 mg/dL (7-18); Bicarbonate 28 mmol/L (21-32); Bilirubin Direct 0.8 mg/dL (0-0.2); Bilirubin Total 1.3 mg/dL (0.2-1.0); Glucose Level 102 mg/dL (74-106); Lipase 315 U/L (73-393); Magnesium 1.7 mg/dL (1.8-2.4); Potassium 4.2 mmol/L (3.5-5.1); Protein, Total 7.6 g/dL (6.4-8.2); Sodium Level 140 mmol/L (136-145); Troponin (Emerg Dept Use Only) < 0.02 ng/mL (0.0-0.045)
[2018-05-21 14:46] LABS: AST/SGOT 373 U/L (15-37)
[2018-05-21 15:27] LABS: Platelet Estimate DECR; Platelets, Giant PRESENT; Urine White Blood Cell Casts OK
[2018-05-21 15:28] LABS: Blood Morphology Comment NOTED (NOT SEEN)
--- NOTE | 2018-05-21 15:28 | RAD REPORT ---
EXAM DESCRIPTION: RAD - Chest Single View - 05/21/2018 2:53 pm CLINICAL HISTORY: CHEST PAIN Chest pain. COMPARISON: CHEST SINGLE VIEW dated 01/22/2011 FINDINGS: Portable technique limits examination quality. The lungs are grossly clear. The heart is normal in size. No displaced fractures.Hardware is present along the left thoracic cage ribs and the left clavicle. IMPRESSION: No acute intrathoracic process suspected.
[2018-05-21 15:29] LABS: Macrocytosis 1+
--- NOTE | 2018-05-21 15:31 | ER ---
Nurse's Notes [facility] Name: Jose Toussaint Age: 58 yrs Sex: Male : 1960 Arrival Date: 05/21/2018 Time: 13:36 Bed 18 Private MD: Diagnosis: Alcohol abuse;Chest pain, unspecified Presentation: 05/21 13:30 Presenting complaint: EMS states: dizziness (worse today), chronic back pain, left sv sided chest pain en route started today. BP 160/100 then reduces to 140/90. Pt did not take his BP meds today and is in [facility] custody. Reports drinking 20 oz of whiskey today, drinks 2-3 times a week. Transition of care: patient was not received from another setting of care. Onset of symptoms was May 21, 2018. Risk Assessment: Do you want to hurt yourself or someone else? Patient reports no desire to harm self or others. Initial Sepsis Screen: Does the patient meet any 2 criteria? No. Patient's initial sepsis screen is negative. Does the patient have a suspected source of infection? No. Patient's initial sepsis screen is negative. Care prior to arrival: Glucose check: 121. 13:30 Method Of Arrival: EMS: [facility] sv 13:30 Acuity: SASHA 2 sv Triage Assessment: 13:30 General: Appears in no apparent distress. comfortable, well developed, Behavior is sv calm, cooperative, appropriate for age. Pain: Complains of pain in back, anterior aspect of left upper chest and left breast Pain currently is 7 out of 10 on a pain scale. Is chronic. Neuro: Level of Consciousness is awake, alert, obeys commands, Oriented to person, place, time, situation, Moves all extremities. Full function Speech is normal. Neuro: Reports dizziness. Cardiovascular: Patient's skin is warm and dry. Rhythm is sinus rhythm. Respiratory: Respiratory effort is even, unlabored, Respiratory pattern is regular, symmetrical. Derm: Skin is pink, warm \T\ dry. Historical: - Allergies: 13:40 No Known Allergies; sv - Home Meds: 13:40 lisinopril 30 mg oral tab once daily [Active]; gabapentin 300 mg Oral cap 1 cap BID sv [Active]; Atenolol Oral once daily [Active]; [place] 10-325 mg Oral tab 1 tab every 6 hours [Active]; - PMHx: 13:40 Chronic pain; Hypertension; sv - PSHx: 13:40 Multiple Skeletal Surgeries - 20 broken bones from fall; sv - Immunization history:: Adult Immunizations up to date. - Social history:: Patient uses alcohol, weekly. 2-3 times. Smoking status: unknown. - Ebola Screening: : No symptoms or risks identified at this time. Screenin:41 Abuse screen: Denies threats or abuse. Denies injuries from another. Nutritional sv screening: No deficits noted. Tuberculosis screening: No symptoms or risk factors identified. Fall Risk None identified. Assessment: 14:10 Reassessment: Patient appears in no apparent distress at this time. No changes from sv previously documented assessment. Pt appears to be resting with eyes closed. [employer] at bedside, pt remains in arm and leg shackles. 15:36 Reassessment: Patient appears in no apparent distress at this time. No changes from sv previously documented assessment. Patient and/or family updated on plan of care and expected duration. Pain level reassessed. Patient is alert, oriented x 3, equal unlabored respirations, skin warm/dry/pink. Vital Signs: 13:41 BP 147 / 102; Pulse 75; Resp 15; Temp 98; Pain 7/10; sv 14:28 BP 146 / 80; Pulse 65; Resp 12; sv 15:03 BP 151 / 89; Pulse 71; Resp 14; Pulse Ox 99% ; sv ED Course: 13:36 Patient arrived in ED. sv 13:37 Rosaura London, RN is Primary Nurse. sv 13:39 Triage completed. sv 13:41 Arm band placed on Patient placed in an exam room, on a stretcher. sv 13:41 Patient has correct armband on for positive identification. Bed in low position. Side sv rails up X2. [employer] at bedsdie. monitor car operator on. NIBP on. Door closed. Head of bed elevated. 13:51 Alcides Burgos MD is Attending Physician. ps1 14:06 EKG done, by biomedical technician. reviewed by Alcides Burgos MD. sm3 14:10 Patient maintains SpO2 saturation greater than 95% on room air. sv 14:28 CBC Smear Scan Sent. sv 14:46 Notified ED physician of a critical lab result(s). AST-373. sv 14:56 CXR XRAY In Process Unspecified. EDMS 15:47 No provider procedures requiring assistance completed. IV discontinued, intact, sv bleeding controlled, No redness/swelling at site. Pressure dressing applied. Administered Medications: No medications were administered Outcome: 15:31 Discharge ordered by . ps1 15:47 Discharged to Law Enforcement sv 15:47 Condition: stable 15:47 Discharge instructions given to patient, police, Instructed on discharge instructions, follow up and referral plans. Demonstrated understanding of instructions, follow-up care. 15:48 Patient left the ED. sv Signatures: Dispatcher [employer] EDRosaura Myers, HEIDI RN Alcides Lizama MD MD ps1 Stephen, Margaux sm3
--- NOTE | 2018-05-21 15:32 | EDPHYS ---
Physician Documentation [facility] Name: Jose Toussaint Age: 58 yrs Sex: Male : 1960 Arrival Date: 05/21/2018 Time: 13:36 Bed 18 Private MD: ED Physician Alcides Burgos HPI: 05/21 15:24 This 58 yrs old Male presents to ER via EMS with complaints of Dizziness, ps1 Chest Pain. 15:24 Patient is escorted by police from [facility]. patient states that he has chest pain and ps1 dizziness. States that he did not take his blood pressure medication this morning because he was busy. States he started drinking this morning shortly after waking up, reported one 20 oz mixed drink. Was arrested while there for alleged theft then complained of chest pain and dizziness. Additionally takes norco for chronic pain. Pain rated as moderate to severe. Non radiating. Patient was not injured from arrest. . Historical: - Allergies: 13:40 No Known Allergies; sv - Home Meds: 13:40 lisinopril 30 mg oral tab once daily [Active]; gabapentin 300 mg Oral cap 1 cap BID sv [Active]; Atenolol Oral once daily [Active]; [place] 10-325 mg Oral tab 1 tab every 6 hours [Active]; - PMHx: 13:40 Chronic pain; Hypertension; sv - PSHx: 13:40 Multiple Skeletal Surgeries - 20 broken bones from fall; sv - Immunization history:: Adult Immunizations up to date. - Social history:: Patient uses alcohol, weekly. 2-3 times. Smoking status: unknown. - Ebola Screening: : No symptoms or risks identified at this time. ROS: 15:24 Constitutional: Negative for fever, chills, and weight loss, Eyes: Negative for injury, ps1 pain, redness, and discharge, Respiratory: Negative for shortness of breath, cough, wheezing, and pleuritic chest pain, Abdomen/GI: Negative for abdominal pain, nausea, vomiting, diarrhea, and constipation, MS/Extremity: Negative for injury and deformity, Skin: Negative for injury, rash, and discoloration, Neuro: Negative for headache, weakness, numbness, tingling, and seizure. 15:24 Cardiovascular: Positive for chest pain. Exam: 15:24 Constitutional: This is a well developed, well nourished patient who is awake, alert, ps1 and in no acute distress. Head/Face: Normocephalic, atraumatic. Eyes: Pupils equal round and reactive to light, extra-ocular motions intact. Lids and lashes normal. Conjunctiva and sclera are non-icteric and not injected. Chest/axilla: Normal chest wall appearance and motion. Nontender with no deformity. No lesions are appreciated. Cardiovascular: Regular rate and rhythm. No gallops, murmurs, or rubs. Normal PMI, no JVD. No pulse deficits. Respiratory: Lungs have equal breath sounds bilaterally, clear to auscultation and percussion. No rales, rhonchi or wheezes noted. No increased work of breathing, no retractions or nasal flaring. Abdomen/GI: Soft, non-tender, with normal bowel sounds. No distension or tympany. No guarding or rebound. No evidence of tenderness throughout. Skin: Warm, dry with normal turgor. Normal color with no rashes, no lesions, and no evidence of cellulitis. MS/ Extremity: Pulses equal, no cyanosis. Neurovascular intact. Full, normal range of motion. Neuro: Awake and alert, GCS 15, oriented to person, place, time, and situation. Cranial nerves II-XII grossly intact. Sensory grossly intact. Psych: Awake, alert, with orientation to person, place and time. Behavior, mood, and affect are within normal limits. 15:24 Constitutional: The patient appears aroma of alcohol on or about the person. Vital Signs: 13:41 BP 147 / 102; Pulse 75; Resp 15; Temp 98; Pain 7/10; sv 14:28 BP 146 / 80; Pulse 65; Resp 12; sv 15:03 BP 151 / 89; Pulse 71; Resp 14; Pulse Ox 99% ; sv MDM: 14:13 Patient medically screened. ps1 15:24 Data reviewed: vital signs, nurses notes, lab test result(s), EKG, radiologic studies, ps1 and as a result, I will discharge patient. 05/21 13:52 Order name: Basic Metabolic Panel; Complete Time: 15:17 ps1 05/21 13:52 Order name: CBC with Diff; Complete Time: 15:32 ps1 05/21 13:52 Order name: Hepatic Function; Complete Time: 15:17 ps1 05/21 13:52 Order name: Lipase; Complete Time: 15:17 ps1 05/21 13:52 Order name: Magnesium; Complete Time: 15:17 ps1 05/21 13:52 Order name: Protime (+inr); Complete Time: 14:39 ps1 05/21 13:52 Order name: Troponin (emerg Dept Use Only); Complete Time: 15:17 ps1 05/21 13:52 Order name: EKG; Complete Time: 13:53 ps1 05/21 13:52 Order name: Cardiac monitoring; Complete Time: 14:19 ps1 05/21 13:52 Order name: EKG - Nurse/Tech; Complete Time: 14:19 ps1 05/21 13:52 Order name: IV Saline Lock; Complete Time: 14:19 ps1 05/21 13:52 Order name: CXR XRAY; Complete Time: 15:32 ps1 05/21 14:07 Order name: ETOH Level; Complete Time: 15:17 ps1 05/21 14:24 Order name: CBC Smear Scan; Complete Time: 15:32 EDMS 05/21 13:52 Order name: Labs collected and sent; Complete Time: 14:19 ps1 05/21 13:52 Order name: NPO; Complete Time: 14:19 ps1 05/21 13:52 Order name: O2 Per Protocol; Complete Time: 14:19 ps1 05/21 13:52 Order name: O2 Sat Monitoring; Complete Time: 14:19 ps1 EC:24 Rate is 69 beats/min. Rhythm is regular. QRS [place] is Normal. [place] interval is normal. QRS ps1 interval is normal. QT interval is normal. No Q waves. T waves are Normal. No ST changes noted. Clinical impression: Normal ECG. Administered Medications: No medications were administered Disposition: 05/21/18 15:31 Discharged to Home. Impression: Alcohol abuse, Chest pain, unspecified. - Condition is Stable. - Discharge Instructions: Alcohol Intoxication, Nonspecific Chest Pain. - Medication Reconciliation Form, Thank You Letter, Antibiotic Education, Prescription Opioid Use form. - Follow up: Emergency Department; When: As needed; Reason: Worsening of condition. Follow up: Private Physician; When: As needed; Reason: Further diagnostic work-up, Recheck today's complaints, Continuance of care, Re-evaluation by your physician. - Problem is new. - Symptoms have improved. Signatures: Dispatcher [employer] Rosaura Celis, RN RN sv Alcides Burgos MD MD ps1 Corrections: (The following items were deleted from the chart) 15:48 15:31 05/21/2018 15:31 Discharged to Home. Impression: Alcohol abuse; Chest pain, sv unspecified. Condition is Stable. Forms are Medication Reconciliation Form, Thank You Letter, Antibiotic Education, Prescription Opioid Use. Follow up: Emergency Department; When: As needed; Reason: Worsening of condition. Follow up: Private Physician; When: As needed; Reason: Further diagnostic work-up, Recheck today's complaints, Continuance of care, Re-evaluation by your physician. Problem is new. Symptoms have improved. ps1
--- NOTE | 2018-05-22 07:00 | EKG ---
Test Date: 2018-04-20 Test Time: 14:01:22 Retail Event Assistant: RELL MEASUREMENT RESULTS: Intervals: Rate: 69 IA: 206 QRSD: 84 QT: 422 QTc: 452 [place]: P: 41 IA: 206 QRS: -22 T: 11 INTERPRETIVE STATEMENTS: Normal sinus rhythm Normal ECG Compared to ECG 01/22/2011 20:03:47 Left-axis deviation no longer present Electronically Signed On 05-22-18 06:53:44 PERSONAL INJURY LITIGATION PARALEGAL by Erick Tejeda
== END 2018-05-21 15:48 | disposition home or self-care (01) ==
LOC: ER 13:32
DX: F10.10 Alcohol abuse, uncomplicated (principal); R07.9 Chest pain, unspecified; R42 Dizziness and giddiness; G89.29 Other chronic pain; I10 Essential (primary) hypertension
CPT/HCPCS: 36415; 71045; 80048; 80076; 80320; 83690; 83735; 84484; 85025; 85610; 93005; 99285

== ENCOUNTER 2018-05-22 08:06 | Emergency (ER) | payer OTHER ==
--- OUTSIDE RECORDS SUMMARY | 2018-05-22 08:17 | XMS REPORT ---
:1960 [facility] [address] [place] [address] [place] [id number] Care Team Providers Name Role Phone Unavailable Unavailable Unavailable Problems This patient has no known problems. Allergies, Adverse Reactions, Alerts This patient has no known allergies or adverse reactions. Medications This patient has no known medications.
[2018-05-22] MEDS ORDERED: cloNIDine HCl 0.1 MG TAB ONE (08:37)
[2018-05-22] MEDS ORDERED: NA CHLORIDE 0.9% 1,000 ML ONE (08:38)
[2018-05-22] MEDS ORDERED: NA CHLORIDE 0.9% 1,000 ML with FOLIC ACID 1 MG, THIAMINE HCL 100 MG, MULTIVITAMINS INJ ... IV SCH ×4 (09:00)
[2018-05-22 09:10] LABS: Absolute Lymphocytes (CBC) 1.2 K/uL (0.7-4.9); Absolute Monocytes 0.5 K/uL (0.1-1.3); Absolute Neutrophil 4.1 K/uL (1.8-8.0); Basophils % 2.1 % (0-1.3); Eosinophils % 0.4 % (0-4.4); Hematocrit 44.4 % (39.6-49.0); MPV 10.5 fL (7.6-11.3); Monocytes % 8.5 % (3.3-12.3); RBC Red Blood Cell Count 4.28 M/uL (4.33-5.43)
[2018-05-22 09:43] LABS: BUN Blood Urea Nitrogen 20 mg/dL (7-18); Bicarbonate 27 mmol/L (21-32); Glucose Level 101 mg/dL (74-106); Potassium 4.4 mmol/L (3.5-5.1); Sodium Level 137 mmol/L (136-145); Troponin (Emerg Dept Use Only) < 0.02 ng/mL (0.0-0.045)
--- NOTE | 2018-05-22 09:54 | ER ---
Nurse's Notes [facility] Name: Jose Toussaint Age: 58 yrs Sex: Male : 1960 Arrival Date: 05/22/2018 Time: 08:12 Bed 19 Private MD: Diagnosis: Hypertension;Dehydration;Alcohol dependence with withdrawal, unspecified Presentation: 05/22 08:14 Presenting complaint: Mother states: from residential, complains of HBP, per EMS, BP- hj 177/113; was here yesterday for chest pain; denies N/V;. Transition of care: patient was not received from another setting of care. Onset of symptoms was May 22, 2018. Risk Assessment: Do you want to hurt yourself or someone else? Patient reports no desire to harm self or others. Initial Sepsis Screen: Does the patient meet any 2 criteria? No. Patient's initial sepsis screen is negative. Does the patient have a suspected source of infection? No. Patient's initial sepsis screen is negative. Care prior to arrival: None. 08:14 Method Of Arrival: Ambulatory 08:14 Acuity: SASHA 3 hj Triage Assessment: 08:17 General: Appears in no apparent distress. uncomfortable, Behavior is calm, cooperative, hj appropriate for age. Pain: Denies pain. Historical: - Allergies: 08:17 No Known Allergies; hj - Home Meds: 08:17 Atenolol Oral once daily [Active]; gabapentin 300 mg Oral cap 1 cap BID [Active]; hj lisinopril 30 mg Oral tab once daily [Active]; - PMHx: 08:17 Chronic pain; Hypertension; hj - PSHx: 08:17 Multiple Skeletal Surgeries - 20 broken bones from fall; hj - Immunization history:: Adult Immunizations up to date. - Social history:: Smoking status: Patient uses tobacco products, Patient uses alcohol. - Ebola Screening: : Patient negative for fever greater than or equal to 101.5 degrees Fahrenheit, and additional compatible Ebola Virus Disease symptoms Patient denies exposure to infectious person Patient denies travel to an Ebola-affected area in the 21 days before illness onset. - Family history:: not pertinent. - Hospitalizations: : No recent hospitalization is reported. Screenin:17 Abuse screen: Denies threats or abuse. Denies injuries from another. Nutritional hj screening: No deficits noted. Tuberculosis screening: No symptoms or risk factors identified. Fall Risk None identified. Assessment: 08:30 General: Appears in no apparent distress. uncomfortable, Behavior is calm, cooperative, hj appropriate for age. Pain: Denies pain. Neuro: Level of Consciousness is awake, alert, obeys commands, Oriented to person, place, time, situation, Appropriate for age. Cardiovascular: Capillary refill < 3 seconds Patient's skin is warm and dry. Respiratory: Airway is patent Respiratory effort is even, unlabored, Respiratory pattern is regular, symmetrical. GI: Reports lower abdominal pain, upper abdominal pain, nausea. : No signs and/or symptoms were reported regarding the genitourinary system. EENT: No signs and/or symptoms were reported regarding the EENT system. Derm: No signs and/or symptoms reported regarding the dermatologic system. Musculoskeletal: No signs and/or symptoms reported regarding the musculoskeletal system. 09:33 Reassessment: Patient and/or family updated on plan of care and expected duration. Pain hj level reassessed. Patient is alert, oriented x 3, equal unlabored respirations, skin warm/dry/pink. Patient states feeling better. Patient states symptoms have improved. Vital Signs: 08:18 BP 140 / 126; Pulse 86; Resp 18; Temp 97.2(TE); Pulse Ox 100% on R/A; Weight 99.79 kg; hj Height 5 ft. 11 in. (180.34 cm); Pain 0/10; 09:33 BP 140 / 67; Pulse 62; Resp 18; Pulse Ox 100% on R/A; hj 08:18 Body Mass Index 30.68 (99.79 kg, 180.34 cm) ED Course: 08:12 Patient arrived in ED. hj 08:14 Louis Tanner MD is Attending Physician. rn 08:14 Lewis Trujillo RN is Primary Nurse. hj 08:15 Triage completed. hj 08:17 Arm band placed on right wrist. hj 08:18 Patient has correct armband on for positive identification. Placed in gown. Bed in low hj position. Call light in reach. Side rails up X 1. 08:28 EKG done, by pile driving technician. reviewed by Louis Tanner MD. at1 08:28 Initial lab(s) drawn, by ky, sent to lab. Inserted saline lock: 20 gauge in right hj forearm, using aseptic technique. ,using aseptic technique. PC, SN. Administered Medications: 08:22 Drug: NS 0.9% 1000 ml Route: IV; Rate: 1000 ml; Site: left antecubital; hj 08:22 Drug: Valium 10 mg Route: IVP; Site: left antecubital; hj 08:59 Follow up: Response: No adverse reaction hj 08:22 Drug: cloNIDine 0.2 mg Route: PO; hj 08:59 Follow up: Response: No adverse reaction hj 09:07 Drug: Banana Bag - (NS 0.9% 1000 ml, foLIC Acid 1 mg, Thiamine 100 mg, Multivitamin 1 hj amp) Route: IV; Rate: calculated rate; Site: left antecubital; 10:16 Drug: Valium 5 mg Route: PO; hj 10:29 Follow up: Response: No adverse reaction; Anxiety decreased hj Outcome: 09:52 Discharge ordered by . rn 10:31 Patient left the ED. iw Signatures: Mari Bar RN RN iw Nieto, Roman, MD MD rn Gonzales, Amanda, voice engineer EKG Tat1 Lewis Trujillo RN RN hj Corrections: (The following items were deleted from the chart) 09:44 09:33 BP 108 / 72; Pulse 62bpm; Resp 18bpm; Pulse Ox 100% RA; hj hj
--- NOTE | 2018-05-22 09:54 | EDPHYS ---
Physician Documentation [facility] Name: Jose Toussaint Age: 58 yrs Sex: Male : 1960 Arrival Date: 05/22/2018 Time: 08:12 Bed 19 Private MD: ED Physician Louis Tanner HPI: 05/22 08:23 This 58 yrs old Male presents to ER via Ambulatory with complaints of High rn Blood Pressure. 08:23 The patient has elevated blood pressure and discovered this senior living. Onset: The rn symptoms/episode began/occurred today. Modifying factors: The symptoms are aggravated by discontinuation of meds, The symptoms are alleviated by. Severity of symptoms: At its worst the blood pressure was moderate, in the emergency department the blood pressure is unchanged. The patient has not experienced similar symptoms in the past. The patient has not recently seen a physician. Reports in senior living for last 3 days, noted to have high blood pressure and doesn't feel well. Reports drinks about 3 times a week, last drink 3 or so days ago, + elevated BP and hasn't been able to take BP meds in senior living. Reports abd cramping and muscle weakness. No chest pain/sob. . Historical: - Allergies: 08:17 No Known Allergies; hj - Home Meds: 08:17 Atenolol Oral once daily [Active]; gabapentin 300 mg Oral cap 1 cap BID [Active]; hj lisinopril 30 mg Oral tab once daily [Active]; - PMHx: 08:17 Chronic pain; Hypertension; hj - PSHx: 08:17 Multiple Skeletal Surgeries - 20 broken bones from fall; hj - Immunization history:: Adult Immunizations up to date. - Social history:: Smoking status: Patient uses tobacco products, Patient uses alcohol. - Ebola Screening: : Patient negative for fever greater than or equal to 101.5 degrees Fahrenheit, and additional compatible Ebola Virus Disease symptoms Patient denies exposure to infectious person Patient denies travel to an Ebola-affected area in the 21 days before illness onset. - Family history:: not pertinent. - Hospitalizations: : No recent hospitalization is reported. ROS: 08:23 Constitutional: Negative for fever, chills, and weight loss, Eyes: Negative for injury, rn pain, redness, and discharge, Neck: Negative for injury, pain, and swelling, Cardiovascular: Negative for chest pain, palpitations, and edema, Respiratory: Negative for shortness of breath, cough, wheezing, and pleuritic chest pain, Abdomen/GI: Negative for abdominal pain, nausea, vomiting, diarrhea, and constipation, MS/Extremity: Negative for injury and deformity, Skin: Negative for injury, rash, and discoloration, Neuro: Negative for headache, numbness, tingling, and seizure. Exam: 08:23 Constitutional: This is a well developed, well nourished patient who is awake, alert, rn and in no acute distress. Head/Face: Normocephalic, atraumatic. Eyes: Pupils equal round and reactive to light, extra-ocular motions intact. Lids and lashes normal. Conjunctiva and sclera are non-icteric and not injected. Cornea within normal limits. Periorbital areas with no swelling, redness, or edema. ENT: dry MM Cardiovascular: Regular rate and rhythm with a normal S1 and S2. No pulse deficits. Respiratory: Lungs have equal breath sounds bilaterally, clear to auscultation. No increased work of breathing, no retractions or nasal flaring. Abdomen/GI: soft, non-tender Skin: Warm, dry MS/ Extremity: Pulses equal, no cyanosis. Neurovascular intact. Full, normal range of motion. Equal circumference. Neuro: Awake and alert, GCS 15, oriented to person, place, time, and situation. Cranial nerves II-XII grossly intact. Motor strength 5/5 in all extremities. Sensory grossly intact. + coarse bilateral extremity tremors and tongue fasciculations. Vital Signs: 08:18 BP 140 / 126; Pulse 86; Resp 18; Temp 97.2(TE); Pulse Ox 100% on R/A; Weight 99.79 kg; hj Height 5 ft. 11 in. (180.34 cm); Pain 0/10; 09:33 BP 140 / 67; Pulse 62; Resp 18; Pulse Ox 100% on R/A; hj 08:18 Body Mass Index 30.68 (99.79 kg, 180.34 cm) MDM: 08:14 Patient medically screened. rn 09:48 Differential diagnosis: hypertensive crisis, Malignant HTN, ETOH withdrawal. Data rn reviewed: vital signs, nurses notes, lab test result(s), EKG, and as a result, I will discharge patient. Counseling: I had a detailed discussion with the patient and/or guardian regarding: the historical points, exam findings, and any diagnostic results supporting the discharge/admit diagnosis, lab results, the need for outpatient follow up, to return to the emergency department if symptoms worsen or persist or if there are any questions or concerns that arise at home. Response to treatment: the patient's symptoms have markedly improved after treatment, and as a result, I will discharge patient. Special discussion: I discussed with the patient/guardian in detail that at this point there is no indication for admission to the hospital. It is understood, however, that if the symptoms persist or worsen the patient needs to return immediately for re-evaluation. 05/22 08:15 Order name: CBC with Diff; Complete Time: 09:29 rn 05/22 08:15 Order name: Basic Metabolic Panel; Complete Time: 09:48 rn 05/22 08:15 Order name: Troponin (emerg Dept Use Only); Complete Time: 09:48 rn 05/22 08:15 Order name: IV Start; Complete Time: 08:52 rn 05/22 08:15 Order name: EKG; Complete Time: 08:16 rn 05/22 08:15 Order name: EKG - Nurse/Tech; Complete Time: 08:22 rn Administered Medications: 08:22 Drug: NS 0.9% 1000 ml Route: IV; Rate: 1000 ml; Site: left antecubital; hj 08:22 Drug: Valium 10 mg Route: IVP; Site: left antecubital; hj 08:59 Follow up: Response: No adverse reaction hj 08:22 Drug: cloNIDine 0.2 mg Route: PO; hj 08:59 Follow up: Response: No adverse reaction hj 09:07 Drug: Banana Bag - (NS 0.9% 1000 ml, foLIC Acid 1 mg, Thiamine 100 mg, Multivitamin 1 hj amp) Route: IV; Rate: calculated rate; Site: left antecubital; 10:16 Drug: Valium 5 mg Route: PO; hj 10:29 Follow up: Response: No adverse reaction; Anxiety decreased hj Disposition: 05/22/18 09:52 Discharged to Home. Impression: Hypertension, Dehydration, Alcohol dependence with withdrawal, unspecified. - Condition is Stable. - Discharge Instructions: Alcohol Withdrawal, Dehydration, Adult, Hypertension. - Medication Reconciliation Form, Thank You Letter, Antibiotic Education, Prescription Opioid Use form. - Follow up: Private Physician; When: As needed; Reason: Recheck today's complaints, Re-evaluation by your physician. - Problem is new. - Symptoms have improved. Signatures: Dispatcher [employer] Mari Cosby RN RN iw Nieto, Roman, MD MD rn Joaquin, Henry, RN RN hj Corrections: (The following items were deleted from the chart) 10:31 09:52 05/22/2018 09:52 Discharged to Home. Impression: Hypertension; Dehydration; iw Alcohol dependence with withdrawal, unspecified. Condition is Stable. Forms are Medication Reconciliation Form, Thank You Letter, Antibiotic Education, Prescription Opioid Use. Follow up: Private Physician; When: As needed; Reason: Recheck today's complaints, Re-evaluation by your physician. Problem is new. Symptoms have improved. rn
--- NOTE | 2018-05-22 10:29 | EKG ---
Test Date: 2018-05-22 Test Time: 08:18:47 Flower Shop Manager: JEROMY MEASUREMENT RESULTS: Intervals: Rate: 77 HI: 170 QRSD: 84 QT: 386 QTc: 436 Ono: P: 38 HI: 170 QRS: -31 T: 10 INTERPRETIVE STATEMENTS: Normal sinus rhythm Left axis deviation Abnormal ECG Compared to ECG 04/20/2018 14:01:22 Left-axis deviation now present Electronically Signed On 05-22-18 10:28:48 CAREER TRANSITION SPECIALIST by Erick Tejeda
[2018-05-22] MEDS ORDERED: DIAZEPAM 5 MG TABLET ONE (10:35)
== END 2018-05-22 10:31 | disposition home or self-care (01) ==
LOC: ER 08:06
DX: I10 Essential (primary) hypertension (principal); E86.0 Dehydration; F10.239 Alcohol dependence with withdrawal, unspecified; Z72.0 Tobacco use
CPT/HCPCS: 36415; 80048; 84484; 85025; 93005; 96374; 96375; 99284; J3411; J7030

== ENCOUNTER 2018-10-30 19:16 | Observation (INO) | payer OTHER ==
--- OUTSIDE RECORDS SUMMARY | 2018-10-30 19:26 | XMS REPORT ---
:1960 Author Organization [facility] Address [address] [place] [address] [place] [id number] Care Team Providers Name Role Phone Unavailable Unavailable Unavailable Problems This patient has no known problems. Allergies, Adverse Reactions, Alerts This patient has no known allergies or adverse reactions. Medications This patient has no known medications.
[2018-10-30] MEDS ORDERED: NA CHLORIDE 0.9% 3,000 ML ONE (20:10)
--- NOTE | 2018-10-30 20:12 | RAD REPORT ---
EXAM DESCRIPTION: RAD - Chest Single View - 10/30/2018 8:02 pm CLINICAL HISTORY: SOB Chest pain. COMPARISON: Chest Single View dated 05/21/2018; CHEST SINGLE VIEW dated 01/22/2011 FINDINGS: Portable technique limits examination quality. The lungs are grossly clear. The heart is normal in size. Hardware is present left clavicle and sever al lateral left ribs. IMPRESSION: No acute intrathoracic process suspected.
[2018-10-30 20:23] LABS: Absolute Lymphocytes (CBC) 2.7 K/uL (0.7-4.9); Eosinophils % 8.2 % (0-4.4); Hematocrit 47.3 % (39.6-49.0); Lymphocytes % 29.9 % (15.3-44.8); MPV 11.1 fL (7.6-11.3); Monocytes % 7.6 % (3.3-12.3); RBC Red Blood Cell Count 4.68 M/uL (4.33-5.43)
[2018-10-30 20:27] LABS: Protime INR 0.97
[2018-10-30 20:42] LABS: ALT/SGPT 102 U/L (12-78); AST/SGOT 173 U/L (15-37); Albumin 3.5 g/dL (3.4-5.0); Alkaline Phosphatase 71 U/L (45-117); BUN Blood Urea Nitrogen 17 mg/dL (7-18); Bicarbonate 23 mmol/L (21-32); Bilirubin Direct 0.4 mg/dL (0-0.2); Bilirubin Total 0.7 mg/dL (0.2-1.0); CKMB Creatine Kinase MB 1.5 ng/mL (0.3-3.6); Creatine Phosphokinase 86 U/L (39-308); Glucose Level 101 mg/dL (74-106); Lipase 116 U/L (73-393); Potassium 3.5 mmol/L (3.5-5.1); Protein, Total 8.7 g/dL (6.4-8.2); Sodium Level 135 mmol/L (136-145); Troponin (Emerg Dept Use Only) < 0.02 ng/mL (0.0-0.045)
[2018-10-30] MEDS ORDERED: THIAMINE 200 MG/2 ML INJ ONE (21:15)
[2018-10-30 21:48] LABS: Urine Bacteria <20 /HPF (NONE SEEN); Urine Culture Reflex Order NOT NEEDED; Urine Mucus 4+ /HPF (NONE SEEN)
--- NOTE | 2018-10-30 22:10 | ER ---
Nurse's Notes [facility] Name: Jose Toussaint Age: 58 yrs Sex: Male : 1960 Arrival Date: 10/30/2018 Time: 19:19 Bed 3 Private MD: Diagnosis: Hypotension, unspecified;Volume depletion;Alcohol abuse Presentation: 10/30 19:25 Presenting complaint: Patient states: Reports vomiting for 4 days that started after aj patient quit drinking. Patient drank "a pint of whiskey today to see if that would help.". Transition of care: patient was not received from another setting of care. Onset of symptoms was October 26, 2018. Risk Assessment: Do you want to hurt yourself or someone else? Patient reports no desire to harm self or others. Initial Sepsis Screen: Does the patient meet any 2 criteria? Systolic BP < 90 mmHg. HR > 90 bpm. Does the patient have a suspected source of infection? No. Patient's initial sepsis screen is negative. Care prior to arrival: None. 19:25 Method Of Arrival: Wheelchair aj 19:25 Acuity: SASHA 2 aj Triage Assessment: 19:27 General: Appears in no apparent distress. uncomfortable, Behavior is calm, cooperative, aj appropriate for age. Pain: Complains of pain in abdomen. Neuro: Level of Consciousness is awake, alert, obeys commands, Oriented to person, place, time, situation, Appropriate for age. Respiratory: Reports shortness of breath. GI: Reports upper abdominal pain, nausea, vomiting. Derm: Skin is intact, is healthy with good turgor, Skin is pink, warm \\T\\ dry. normal. Historical: - Allergies: 19:27 No Known Allergies; aj - Home Meds: 19:27 Atenolol Oral once daily [Active]; gabapentin 300 mg Oral cap 1 cap BID [Active]; aj lisinopril 30 mg Oral tab once daily [Active]; Hydrocodone-Acetaminophen Oral [Active]; - PMHx: 19:27 Chronic pain; Hypertension; aj - PSHx: 19:27 Multiple Skeletal Surgeries - 20 broken bones from fall; aj - Immunization history:: Adult Immunizations up to date. - Social history:: Smoking status: Patient/guardian denies using tobacco. - Ebola Screening: : Patient negative for fever greater than or equal to 101.5 degrees Fahrenheit, and additional compatible Ebola Virus Disease symptoms Patient denies exposure to infectious person Patient denies travel to an Ebola-affected area in the 21 days before illness onset No symptoms or risks identified at this time. Screenin:25 Abuse screen: Denies threats or abuse. Denies injuries from another. Nutritional rr5 screening: No deficits noted. Tuberculosis screening: No symptoms or risk factors identified. Fall Risk IV access (20 points). Total Perez Fall Scale indicates No Risk (0-24 pts). Assessment: 19:25 General: Appears in no apparent distress. uncomfortable, Behavior is calm, cooperative, rr5 appropriate for age. Pain: Denies pain. Neuro: Level of Consciousness is awake, alert, obeys commands, Oriented to person, place, time, situation, Appropriate for age. 19:25 Cardiovascular: Capillary refill < 3 seconds Patient's skin is warm and dry. rr5 Respiratory: Airway is patent Respiratory effort is even, unlabored, Respiratory pattern is regular, symmetrical. GI: Abdomen is round Reports nausea, vomiting. : No signs and/or symptoms were reported regarding the genitourinary system. EENT: No signs and/or symptoms were reported regarding the EENT system. Derm: Skin is intact, Skin temperature is warm. Musculoskeletal: Capillary refill < 3 seconds, Range of motion: intact in all extremities, mild tremors noted. 20:45 Reassessment: Patient appears in no apparent distress at this time. Patient is alert, rr5 oriented x 3, equal unlabored respirations, skin warm/dry/pink. no complaints made awaiting for laboratory result. 21:15 Reassessment: Patient appears in no apparent distress at this time. Patient is alert, rr5 oriented x 3, equal unlabored respirations, skin warm/dry/pink. eyes closed, breathing spontaneously at room air. on semi arana's position. 22:20 Reassessment: Patient appears in no apparent distress at this time. complaining of rr5 chest pain abdominal pain and tremors noted. 22:20 Reassessment: ED provider informed with order made and carried out. rr5 23:30 Reassessment: Patient appears in no apparent distress at this time. Patient and/or rr5 family updated on plan of care and expected duration. Pain level reassessed. bed linen and gown changed. 23:35 Reassessment: Report given to Haylie EDEN ea 10/31 00:20 Reassessment: Patient appears in no apparent distress at this time. Patient is alert, rr5 oriented x 3, equal unlabored respirations, skin warm/dry/pink. vomiting stopped. stills feels nauseated. advised and maintain on NPO. transfer to 4 th floor. Vital Signs: 10/30 19:27 BP 77 / 63; Pulse 125; Resp 26; Temp 99.1; Pulse Ox 99% on R/A; Weight 99.79 kg; Height aj 6 ft. 2 in. (187.96 cm); 20:20 BP 100 / 75; Pulse 114; Resp 20; Pulse Ox 98% ; rr5 20:40 BP 109 / 78; Pulse 105; Resp 19; Pulse Ox 98% on R/A; rr5 22:00 BP 141 / 95; Pulse 110; Resp 19; Pulse Ox 99% ; rr5 23:00 BP 161 / 105; Pulse 102; Resp 18; Temp 98.9; Pulse Ox 99% ; rr5 10/31 00:00 BP 154 / 107; Pulse 106; Resp 17; Pulse Ox 99% ; rr5 10/30 19:27 Body Mass Index 28.25 (99.79 kg, 187.96 cm) ED Course: 10/30 19:19 Patient arrived in ED. ag3 19:26 Triage completed. aj 19:27 Arm band placed on right wrist. Patient placed in an exam room. aj 19:30 [facility]C [facility] snw 19:30 José Castellano MD is Attending Physician. snw 19:38 Radiology exam delayed due to lab results not completed at this time. (BUN/Creatinine) vm2 IV insertion attempt and/or patient not having appropriate IV at this time. 19:40 Patient has correct armband on for positive identification. Placed in gown. Bed in low rr5 position. Call light in reach. Side rails up X2. ekg monitor on. Pulse ox on. NIBP on. 19:45 Inserted saline lock: 18 gauge in right antecubital area, using aseptic technique. rr5 Blood collected. 19:45 First set of blood cultures drawn maxine PAL. Inserted saline lock: 18 gauge in left rr5 antecubital area, using aseptic technique. 19:50 Second set of blood cultures drawn maxine PAL. rr5 20:04 Chest Single View XRAY In Process Unspecified. EDMS 20:18 Semaj Peralta, RN is Primary Nurse. rr5 20:38 EKG done, by ED staff, reviewed by Maxine HANCOCK. rr5 20:40 Radiology exam delayed due to lab results not completed at this time. (BUN/Creatinine). nj 20:50 [place] cath inserted, using sterile technique, 16 Fr., by me, balloon inflated, urine rr5 specimen collected. 21:25 CT Traumagram (Head C Spine CAP W Con) In Process Unspecified. EDMS 22:08 Yamilet Gale MD is Hospitalizing Provider. snw 10/31 00:09 No provider procedures requiring assistance completed. Patient admitted, IV remains in rr5 place. intact, No redness/swelling at site. Administered Medications: 10/30 19:45 Drug: NS 0.9% (30 ml/kg) 30 ml/kg {Note: and left AC 1.5liter each.} Route: IV; Rate: rr5 bolus; Site: right antecubital; 20:30 Drug: NS 0.9% (30 ml/kg) 30 ml/kg Route: IV; Rate: bolus; Site: left antecubital; rr5 22:38 Follow up: Response: No adverse reaction; IV Status: Completed infusion; IV Intake: rr5 2993ml 21:05 Drug: Thiamine 100 mg Route: IV; Rate: calculated rate; Site: left antecubital; rr5 22:05 Follow up: Response: No adverse reaction; IV Status: Completed infusion rr5 22:27 Drug: Valium 5 mg Route: IVP; Site: left antecubital; rr5 23:05 Follow up: Response: No adverse reaction rr5 23:10 Drug: Valium 5 mg Route: IVP; Site: right antecubital; rr5 10/31 00:12 Follow up: Response: No adverse reaction rr5 10/30 23:12 Drug: Zofran 4 mg Route: IVP; Site: left antecubital; ea 10/31 00:12 Follow up: Response: No adverse reaction rr5 Point of Care Testing: Blood Glucose: 10/30 19:50 Blood Glucose: 108 mg/dL; rr5 Ranges: Intake: 22:38 IV: 2993ml; Total: 2993ml. rr5 Output: 22:20 Gastric: 200ml (Emesis); Total: 200ml. rr5 23:00 Gastric: 250ml (Emesis); Total: 450ml. rr5 10/31 00:22 Urine: 750ml ([place]); Total: 1200ml. rr5 Outcome: 10/30 22:09 Decision to Hospitalize by Provider. snw 23:50 Admitted to Med/surg accompanied by tech, room 431, with chart, Report called to haylie rr5 23:50 Condition: stable rr5 23:50 Instructed on the need for admit. 10/31 00:23 Patient left the ED. rr5 Signatures: Dispatcher [employer] EDJenifer Orozco, Maxine Rocha RN, [employer]-C [employer]-Csnw Romeo Calvo [place] vm2 Antunez, Elena, RN RN ea Gomez, Alice ag3 Roque, Raymond, RN RN rr5
--- NOTE | 2018-10-30 22:11 | EDPHYS ---
Physician Documentation [facility] Name: Jose Toussaint Age: 58 yrs Sex: Male : 1960 Arrival Date: 10/30/2018 Time: 19:19 Bed 3 Private MD: ED Physician José Castellano HPI: 10/30 20:03 This 58 yrs old Male presents to ER via Wheelchair with complaints of CHILLS, snw Vomiting. 20:03 pt states he generally drinks a fifth to a pint daily x 10+ years, thought he would snw feel better if he didn't drink. Did not ingest ETOH x 5 days. Today with shakiness, n/v, constipation, so he drank a 1/2 of a fifth but does not feel better. States dizziness, shakiness, and n/v are worse.. Onset: The symptoms/episode began/occurred gradually. Severity of symptoms: At their worst the symptoms were severe incapacitating. The patient has not experienced similar symptoms in the past. It is unknown whether or not the patient has recently seen a physician. sees PCP at [facility]. Historical: - Allergies: 19:27 No Known Allergies; aj - Home Meds: 19:27 Atenolol Oral once daily [Active]; gabapentin 300 mg Oral cap 1 cap BID [Active]; aj lisinopril 30 mg Oral tab once daily [Active]; Hydrocodone-Acetaminophen Oral [Active]; - PMHx: 19:27 Chronic pain; Hypertension; aj - PSHx: 19:27 Multiple Skeletal Surgeries - 20 broken bones from fall; aj - Immunization history:: Adult Immunizations up to date. - Social history:: Smoking status: Patient/guardian denies using tobacco. - Ebola Screening: : Patient negative for fever greater than or equal to 101.5 degrees Fahrenheit, and additional compatible Ebola Virus Disease symptoms Patient denies exposure to infectious person Patient denies travel to an Ebola-affected area in the 21 days before illness onset No symptoms or risks identified at this time. ROS: 19:55 Eyes: Negative for injury, pain, redness, and discharge, ENT: Negative for injury, snw pain, and discharge, Neck: Negative for injury, pain, and swelling, Cardiovascular: Negative for chest pain, palpitations, and edema, Respiratory: Negative for shortness of breath, cough, wheezing, and pleuritic chest pain, Abdomen/GI: Positive for abdominal pain, nausea, vomiting, and constipation, Back: Negative for injury and pain, : Negative for injury, bleeding, discharge, and swelling, MS/Extremity: Negative for injury and deformity, Skin: Negative for injury, rash, and discoloration. 19:55 Constitutional: Positive for body aches, fatigue, malaise, poor PO intake. 19:55 Neuro: Positive for dizziness. 19:55 Psych: Positive for anxiety, alcohol dependence. Exam: 19:52 Head/Face: Normocephalic, atraumatic. Eyes: Pupils equal round and reactive to light, snw extra-ocular motions intact. Lids and lashes normal. Conjunctiva and sclera are non-icteric and not injected. Cornea within normal limits. Periorbital areas with no swelling, redness, or edema. ENT: Nares patent. No nasal discharge, no septal abnormalities noted. Tympanic membranes are normal and external auditory canals are clear. Oropharynx with no redness, swelling, or masses, exudates, or evidence of obstruction, uvula midline. Mucous membranes moist. Neck: Trachea midline, no thyromegaly or masses palpated, and no cervical lymphadenopathy. Supple, full range of motion without nuchal rigidity, or vertebral point tenderness. No Meningismus. Chest/axilla: Normal chest wall appearance and motion. Nontender with no deformity. No lesions are appreciated. 19:52 Back: No spinal tenderness. No costovertebral tenderness. Full range of motion. Skin: Warm, dry with normal turgor. Normal color with no rashes, no lesions, and no evidence of cellulitis. MS/ Extremity: Pulses equal, no cyanosis. Neurovascular intact. Full, normal range of motion. Neuro: Awake and alert, GCS 15, oriented to person, place, time, and situation. Cranial nerves II-XII grossly intact. Motor strength 5/5 in all extremities. Sensory grossly intact. Cerebellar exam normal. Normal gait. 19:52 Constitutional: The patient appears awake, listless, smells of alcohol, restless, uncomfortable. 19:52 Cardiovascular: Rate: tachycardic, Rhythm: regular, Pulses: no pulse deficits are appreciated, Heart sounds: normal. 19:52 Respiratory: the patient does not display signs of respiratory distress, Respirations: shallow respirations, tachypnea, Breath sounds: are clear throughout. 19:52 Abdomen/GI: Inspection: scar(s), Bowel sounds: hypoactive, Palpation: moderate abdominal tenderness, in the left upper quadrant. 19:52 Psych: Exam negative for Behavior/mood is anxious, Affect is animated, Oriented to person, place, time, Judgement / Insight is normal. Vital Signs: 19:27 BP 77 / 63; Pulse 125; Resp 26; Temp 99.1; Pulse Ox 99% on R/A; Weight 99.79 kg; Height aj 6 ft. 2 in. (187.96 cm); 20:20 BP 100 / 75; Pulse 114; Resp 20; Pulse Ox 98% ; rr5 20:40 BP 109 / 78; Pulse 105; Resp 19; Pulse Ox 98% on R/A; rr5 22:00 BP 141 / 95; Pulse 110; Resp 19; Pulse Ox 99% ; rr5 23:00 BP 161 / 105; Pulse 102; Resp 18; Temp 98.9; Pulse Ox 99% ; rr5 10/31 00:00 BP 154 / 107; Pulse 106; Resp 17; Pulse Ox 99% ; rr5 10/30 19:27 Body Mass Index 28.25 (99.79 kg, 187.96 cm) aj MDM: 10/30 19:57 Patient medically screened. snw 22:09 Data reviewed: vital signs, nurses notes. Data interpreted: Pulse oximetry: on room air snw is 98 %. Interpretation: normal. Counseling: I had a detailed discussion with the patient and/or guardian regarding: the historical points, exam findings, and any diagnostic results supporting the discharge/admit diagnosis, lab results, radiology results, the need for further work-up and treatment in the hospital. Physician consultation: Yamilet Gale MD was called at 22:09, was contacted at 22:09, regarding admission, to the telemetry unit. 10/30 19:33 Order name: T\T\S [facility] 10/30 19:33 Order name: Basic Metabolic Panel [facility] 10/30 19:33 Order name: Blood Culture Adult (2) snw 10/30 19:33 Order name: CBC with Diff [facility] 10/30 19:33 Order name: Ckmb [facility] 10/30 19:33 Order name: CPK 10/30 19:33 Order name: Lactate; Complete Time: 20:38 10/30 19:33 Order name: LFT's; Complete Time: 20:46 10/30 19:33 Order name: Lipase; Complete Time: 20:46 10/30 19:33 Order name: Procalcitonin; Complete Time: 21:24 10/30 19:33 Order name: Protime (+inr); Complete Time: 20:31 10/30 19:33 Order name: Ptt, Activated; Complete Time: 20:31 10/30 19:33 Order name: Troponin (emerg Dept Use Only); Complete Time: 20:46 10/30 19:33 Order name: Urine Microscopic Only; Complete Time: 21:55 10/30 19:33 Order name: Chest Single View XRAY; Complete Time: 20:15 10/30 19:33 Order name: CT Traumagram (Head C Spine CAP W Con) 10/30 19:33 Order name: ETOH Level; Complete Time: 20:56 10/30 19:35 Order name: Type and Screen; Complete Time: 21:09 10/30 19:35 Order name: Basic Metabolic Panel; Complete Time: 20:46 10/30 19:35 Order name: Blood Culture 10/30 19:35 Order name: CBC with Automated Diff; Complete Time: 20:29 10/30 19:35 Order name: CKMB Creatine Kinase MB; Complete Time: 20:46 10/30 19:35 Order name: Creatine Phosphokinase; Complete Time: 20:46 [place] 10/30 22:08 Order name: ABO/RH no charge; Complete Time: 22:08 [place] 10/30 19:33 Order name: Accucheck; Complete Time: 20:21 10/30 19:33 Order name: Cardiac monitoring; Complete Time: 20:21 10/30 19:33 Order name: EKG - Nurse/Tech; Complete Time: 20:54 10/30 19:33 Order name: IV Saline Lock - Large Bore; Complete Time: 20:21 10/30 19:33 Order name: Labs collected and sent; Complete Time: 20:23 10/30 19:33 Order name: O2 Per Protocol; Complete Time: 20:23 snw 10/30 19:33 Order name: O2 Sat Monitoring; Complete Time: 20:19 snw 10/30 19:33 Order name: Urine Dipstick-Ancillary (obtain specimen); Complete Time: 20:54 snw 10/30 19:33 Order name: [place]; Complete Time: 20:54 snw Administered Medications: 19:45 Drug: NS 0.9% (30 ml/kg) 30 ml/kg {Note: and left AC 1.5liter each.} Route: IV; Rate: rr5 bolus; Site: right antecubital; 20:30 Drug: NS 0.9% (30 ml/kg) 30 ml/kg Route: IV; Rate: bolus; Site: left antecubital; rr5 22:38 Follow up: Response: No adverse reaction; IV Status: Completed infusion; IV Intake: rr5 2993ml 21:05 Drug: Thiamine 100 mg Route: IV; Rate: calculated rate; Site: left antecubital; rr5 22:05 Follow up: Response: No adverse reaction; IV Status: Completed infusion rr5 22:27 Drug: Valium 5 mg Route: IVP; Site: left antecubital; rr5 23:05 Follow up: Response: No adverse reaction rr5 23:10 Drug: Valium 5 mg Route: IVP; Site: right antecubital; rr5 10/31 00:12 Follow up: Response: No adverse reaction rr5 10/30 23:12 Drug: Zofran 4 mg Route: IVP; Site: left antecubital; ea 10/31 00:12 Follow up: Response: No adverse reaction rr5 Point of Care Testing: Blood Glucose: 10/30 19:50 Blood Glucose: 108 mg/dL; rr5 Ranges: Critical Glucose Levels:Adult <50 mg/dl or >400 mg/dl <40 mg/dl or >180 mg/dl Disposition: 10/31 00:39 Co-signature as Attending Physician, José Castellano MD. pkl Disposition: 10/30/18 22:09 Hospitalization ordered by Yamilet Gale for Observation. Preliminary diagnosis are Hypotension, unspecified, Volume depletion, Alcohol abuse. - Bed requested for Telemetry/MedSurg (observation). - Status is Observation. rr5 - Condition is Stable. - Problem is an acute exacerbation. - Symptoms have improved. UTI on Admission? No Signatures: Dispatcher [employer] EDWY Romelia Antoine RN Jenifer Harris RN José Casarez MD MD pkl Therrien, Shelly, PUMP ROOM OPERATOR-C PUMP ROOM OPERATOR-Csnw Haylie Charles RN Semaj Wilde ea RN RN rr5 Corrections: (The following items were deleted from the chart) 10/30 22:28 22:09 Hospitalization Ordered by Yamilet Gale MD for Observation. Preliminary diagnosis is Hypotension, unspecified; Volume depletion; Alcohol abuse. Bed requested for Telemetry/MedSurg (observation). Status is Observation. Condition is Stable. Problem is an acute exacerbation. Symptoms have improved. UTI on Admission? No. snw 23:07 22:23 CONS Pharmacy Consult ordered. [facility] 10/31 00:23 10/30 22:28 10/30/2018 22:09 Hospitalization Ordered by Yamilet Gale MD for rr5 Observation. Preliminary diagnosis is Hypotension, unspecified; Volume depletion; Alcohol abuse. Bed requested for Telemetry/MedSurg (observation). Status is Observation. Condition is Stable. Problem is an acute exacerbation. Symptoms have improved. UTI on Admission? No. mw
[2018-10-30] MEDS ORDERED: ACETAMINOPHEN 500 MG TAB PO PRN (22:15)
[2018-10-30] MEDS ORDERED: ONDANSETRON 4 MG/2 ML VIAL IV PRN (22:15)
[2018-10-30] MEDS ORDERED: DIAZEPAM 10 MG/2 ML INJ SYRINGE ONE ×2 (22:39→23:55)
[2018-10-30] MEDS ORDERED: ONDANSETRON 4 MG/2 ML VIAL ONE (23:26)
[2018-10-31] MEDS: NA CHLORIDE 0.9% 1,000 ML IV SCH ×3 (00:41→21:59)
[2018-10-31] MEDS: MORPHINE 4 MG/ML SYR IV PRN ×6 (01:39→23:14)
[2018-10-31] MEDS ORDERED: NA CHLORIDE 0.9% 500 ML IV ONE (04:41)
[2018-10-31] MEDS ORDERED: METOPROLOL TARTRATE 5 MG/5 ML INJ IV STA (04:41)
[2018-10-31] MEDS: chlordiazePOXIDE HCl 5 MG CAP PO SCH ×4 (05:37→23:14)
[2018-10-31 05:59] LABS: Absolute Lymphocytes (CBC) 2.4 K/uL (0.7-4.9); Eosinophils % 3.7 % (0-4.4); Hematocrit 39.4 % (39.6-49.0); Lymphocytes % 27.2 % (15.3-44.8); MPV 10.9 fL (7.6-11.3); RBC Red Blood Cell Count 3.91 M/uL (4.33-5.43)
[2018-10-31 06:01] LABS: Protime INR 1.05
[2018-10-31] MEDS: METOPROLOL TAR 25 MG TAB PO SCH ×2 (07:02→18:58)
--- NOTE | 2018-10-31 08:33 | P.HP ---
Certification for Inpatient Patient admitted to: Observation With expected LOS: <2 Midnights Patient will require the following post-hospital care: None Practitioner: I am a practitioner with admitting privileges, knowledge of patient current condition, hospital course, and medical plan of care. Services: Services provided to patient in accordance with Admission requirements found in Title 42 Section 412.3 of the Code of Federal Regulations Patient History Date of Service: 10/30/18 Reason for admission: Left-sided flank tenderness/intractable nausea and vomiting History of Present Illness: Patient is a 58-year-old male who was admitted to the hospital with intractable nausea and vomiting. Patient stopped drinking a few days prior. He normally goes on binges. He got sick and stopped for the last 3 days. He was worsening and thought it was related to not drinking so he started drinking again. However, he had severe pain and nausea and vomiting so he came into the ER for further evaluation. In the emergency room he had a CT scan performed. Report is still not back. I have asked for report from nurses & charge nursing and they have been working on trying to get the CT scan report. At this time, with his symptoms and his alcohol history also Consult GI as patient may need an upper endoscopy. Allergies No Known Drug Allergies Allergy (Verified 10/31/18 02:26) Unknown No Known [place] Allergy (Uncoded 12/14/16 11:52) Unknown No Known Allergies Allergy (Uncoded 02/18/17 15:48) Unknown Home Medications: Hydrocodone 7.5/APAP 325 [[place] 7.5/325 mg*] 7.5 mg PO TID 10/31/18 Lisinopril 20 mg PO DAILY 10/31/18 Nifedipine [Adalat cc] 30 mg PO DAILY 10/31/18 - Past Medical/Surgical History Has patient received pneumonia vaccine in the past: No Diabetic: No -: Hypertension -: Tonsillectomy -: Internal fixation clavicle,ribs -: REpair of lung tear - Family History Father Medical History: Cancer Notes: Cancer nose Mother History Unknown: Yes Medical History: Other (see notes) Notes: CHF - Social History Smoking Status: Current every day smoker Alcohol use: Yes CD- Drugs: No Caffeine use: Yes Place of Residence: Home Review of Systems 10-point ROS is otherwise unremarkable Physical Examination - Vital Signs Temperature: 99.0 F Blood Pressure: 150/97 Pulse: 92 Respirations: 16 Pulse Ox (%): 99 - Physical Exam General: Alert, In no apparent distress, Oriented x3 HEENT: Atraumatic, PERRLA, Mucous membr. moist/pink, EOMI, Sclerae nonicteric Neck: Supple, 2+ carotid pulse no bruit, No LAD, Without JVD or thyroid abnormality Respiratory: Clear to auscultation bilaterally, Normal air movement Cardiovascular: Regular rate/rhythm, Normal S1 S2, No murmurs Gastrointestinal: Normal bowel sounds, Soft and benign, Non-distended, Tenderness Musculoskeletal: No clubbing, No swelling, No tenderness Integumentary: No rashes Neurological: Normal gait, Normal speech, Normal strength at 5/5 x4 extr, Normal tone, Sensation intact, Cranial nerves 3-12 intact, Normal affect Lymphatics: No axilla or inguinal lymphadenopathy - Studies Laboratory Data (last 24 hrs) 10/30/18 19:45: PT 11.5, INR 0.97, APTT 27.1 10/30/18 19:45: Sodium 135 L, Potassium 3.5, BUN 17, Creatinine 1.68 H, Glucose 101, Total Bilirubin 0.7, AST 173 H, ALT 102 H, Alkaline Phosphatase 71, Lipase 116 10/30/18 19:33: WBC 8.9, Hgb 15.7, Hct 47.3, Plt Count 131 L Assessment & Plan - Problems (Diagnosis) (1) Intractable nausea and vomiting Current Visit: Yes Status: Acute (2) Abdominal pain Current Visit: Yes Status: Acute (3) Alcohol abuse Current Visit: Yes Status: Acute (4) History of bad fall Current Visit: Yes Status: Acute - Plan 1. Continue with IV hydration 2. Continue with IV antibiotics 3. Continue with pain control 4. NPO 5. GI consultation; possible endoscopy 6. Monitor CBC, BMP, LFTs and lipase along with electrolytes. 7. GI and DVT prophylaxis Discharge Plan: Home Plan to discharge in: Greater than 2 days - Advance Directives Does patient have a Living Will: No Does patient have a Durable POA for Healthcare: No - Code Status/Comfort Care Code Status Assessed: Yes Code Status: Full Code Critical Care: No Time Spent Managing PTS Care (In Minutes): 45
[2018-10-31 08:55] LABS: Albumin 2.8 g/dL (3.4-5.0); Bilirubin Total 0.8 mg/dL (0.2-1.0); Folic Acid, (Folate) 4.3 ng/mL (3.1-17.5); Potassium 3.5 mmol/L (3.5-5.1); Protein, Total 6.9 g/dL (6.4-8.2)
[2018-10-31] MEDS: NIFEDIPINE XL 30 MG TABLET PO SCH (09:09)
[2018-10-31] MEDS: FOLIC ACID 1 MG, MULTIVITAMINS INJ 10 ML, THIAMINE HCL 100 MG in NA CHLORIDE 0.9% 1,000 ML IV SCH (09:10)
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
[2018-10-31] MEDS: NICOTINE 21 MG/PAT TD SCH (12:30)
--- NOTE | 2018-10-31 14:53 | EKG ---
Test Date: 2018-10-30 Test Time: 20:38:03 Egg Sorter: RR MEASUREMENT RESULTS: Intervals: Rate: 77 [place]: 188 QRSD: 74 QT: 394 QTc: 445 [place]: P: 49 [place]: 188 QRS: -26 T: 56 INTERPRETIVE STATEMENTS: Normal sinus rhythm Normal ECG Compared to ECG 05/22/2018 08:18:47 Left-axis deviation no longer present Electronically Signed On 10-31-18 14:51:36 CDT by Adalberto Nicole
--- NOTE | 2018-10-31 14:53 | EKG ---
Test Date: 2018-10-31 Test Time: 07:43:53 Air Tank Assembler: ARTEMIO MEASUREMENT RESULTS: Intervals: Rate: 76 [place]: 210 QRSD: 78 QT: 400 QTc: 450 [place]: P: 39 [place]: 210 QRS: -19 T: 40 INTERPRETIVE STATEMENTS: Sinus rhythm with 1st degree AV block Otherwise normal ECG Compared to ECG 10/30/2018 20:38:03 First degree AV block now present Electronically Signed On 10-31-18 14:51:30 CDT by Adalberto Nicole
[2018-10-31] MEDS ORDERED: SODIUM CHLORIDE 0.9% 10ML INJ IV PRN (15:42)
[2018-10-31] MEDS ORDERED: SIMETHICONE 80 MG TAB PO PRN (15:47)
--- NOTE | 2018-10-31 16:43 | P.PN ---
Subjective Date of Service: 10/31/18 Chief Complaint: Left-sided flank tenderness/intractable nausea and vomiting Patient seen and examined at bedside. No family at bedside. Chart reviewed and case discussed with nursing staff. Complains of pain across it band of chest that wraps around to upper back and shoulder blade. states this pain is pretty chronic for him. Also continues to complain of nausea and vomiting. He thinks this is gas because he feels better when he passes gas. Review of Systems 10-point ROS is otherwise unremarkable Physical Examination - Vital Signs Temperature: 98.8 F Blood Pressure: 131/89 Pulse: 75 Respirations: 18 Pulse Ox (%): 97 - Physical Exam General: Alert, Oriented x3, Mild distress, Other (Looks older than stated age) Neck: Supple, JVD not distended Respiratory: Clear to auscultation bilaterally, Normal air movement Cardiovascular: Regular rate/rhythm, Normal S1 S2 Gastrointestinal: Distended, Tenderness Musculoskeletal: No tenderness Integumentary: No rashes - Studies Laboratory Data (last 24 hrs) 10/30/18 19:45: PT 11.5, INR 0.97, APTT 27.1 10/30/18 19:45: Sodium 135 L, Potassium 3.5, BUN 17, Creatinine 1.68 H, Glucose 101, Total Bilirubin 0.7, AST 173 H, ALT 102 H, Alkaline Phosphatase 71, Lipase 116 10/30/18 19:33: WBC 8.9, Hgb 15.7, Hct 47.3, Plt Count 131 L Assessment And Plan - Current Problems (Diagnosis) (1) Abdominal pain Current Visit: Yes Status: Acute Plan: Unsure of etiology. This could be secondary to reflux versus chronic alcohol use versus infectious all versus liver disease. - GI consulted, pending evaluation - continue IV hydration, IV antibiotics and pain control - CT abdomen negative for any acute abnormalities. - trial of PPI to see if this will help along with simethicone. Qualifiers: Abdominal location: generalized Qualified Code(s): R10.84 - Generalized abdominal pain (2) Alcohol abuse Current Visit: Yes Status: Chronic Plan: Counseled on alcohol cessation, more than 10 min (3) Intractable nausea and vomiting Current Visit: Yes Status: Acute Plan: Continue symptomatic treatment with Zofran as needed. Qualifiers: Vomiting type: unspecified Qualified Code(s): R11.2 - Nausea with vomiting , unspecified (4) History of bad fall Current Visit: Yes Status: Acute (5) Chronic pain after traumatic injury Current Visit: Yes Status: Acute Plan: Patient with a bad fall, multiple surgeries 3 years ago. States he takes 3 [place] every day home but continues to have the pain. Currently complaining of stretching pain across chest wrapping around to the upper back. describes it as superficial. States this is pretty chronic - Plan DVT prophylaxis: Lovenox GI prophylaxis: Protonix Diet: Regular Disposition: pending symptomatic improvement and GI evaluation
[2018-10-31] MEDS: DOCUSATE NA 100 MG CAP PO SCH (21:58)
[2018-11-01] MEDS: MORPHINE 4 MG/ML SYR IV PRN ×5 (03:52→20:19)
[2018-11-01] MEDS: NA CHLORIDE 0.9% 1,000 ML IV SCH ×3 (05:00→20:20)
[2018-11-01] MEDS: METOPROLOL TAR 25 MG TAB PO SCH ×2 (06:49→17:42)
[2018-11-01] MEDS: chlordiazePOXIDE HCl 5 MG CAP PO SCH ×2 (06:50→12:08)
[2018-11-01] MEDS: NIFEDIPINE XL 30 MG TABLET PO SCH (08:03)
[2018-11-01] MEDS: NICOTINE 21 MG/PAT TD SCH (08:09)
[2018-11-01] MEDS: DOCUSATE NA 100 MG CAP PO SCH ×2 (08:09→20:19)
[2018-11-01] MEDS: PANTOPRAZOLE 40 MG INJ IVP SCH (08:09)
[2018-11-01] MEDS: FOLIC ACID 1 MG, MULTIVITAMINS INJ 10 ML, THIAMINE HCL 100 MG in NA CHLORIDE 0.9% 1,000 ML IV SCH (10:41)
[2018-11-01] MEDS: chlordiazePOXIDE HCl 25 MG CAP PO SCH (17:42)
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
[2018-11-02] MEDS: chlordiazePOXIDE HCl 25 MG CAP PO SCH ×2 (00:28→05:10)
[2018-11-02] MEDS: MORPHINE 4 MG/ML SYR IV PRN ×3 (00:28→10:52)
[2018-11-02] MEDS: NA CHLORIDE 0.9% 1,000 ML IV SCH ×2 (01:00→05:08)
[2018-11-02] MEDS: METOPROLOL TAR 25 MG TAB PO SCH (05:09)
[2018-11-02] MEDS: NICOTINE 21 MG/PAT TD SCH (07:45)
[2018-11-02] MEDS: DOCUSATE NA 100 MG CAP PO SCH (08:43)
[2018-11-02] MEDS: PANTOPRAZOLE 40 MG INJ IVP SCH (08:43)
[2018-11-02] MEDS: NIFEDIPINE XL 30 MG TABLET PO SCH (08:44)
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
== END 2018-11-02 13:05 | disposition home or self-care (01) ==
LOC: ER 19:16 → ERHOLD 22:15 → 4TH 10-31 00:06
PROVIDERS: ADMIT Hospitalist; ATTEND Family Medicine
DX: R11.2 Nausea with vomiting, unspecified (principal); R10.84 Generalized abdominal pain; F10.10 Alcohol abuse, uncomplicated; G89.4 Chronic pain syndrome; M54.9 Dorsalgia, unspecified; I10 Essential (primary) hypertension; E86.9 Volume depletion, unspecified; I95.9 Hypotension, unspecified; F17.210 Nicotine dependence, cigarettes, uncomplicated; Z79.891 Long term (current) use of opiate analgesic; Z79.899 Other long term (current) drug therapy; Z91.81 History of falling
CPT/HCPCS: 36415; 51702; 70450; 71045; 71260; 72125; 74177; 80048; 80053; 80076; 80320; 81015; 82550; 82553; 82607; 82746; 82962; 83605; 83690; 84145; 84484; 85025; 85610; 85730; 86850; 86900; 86901; 87040; 93005; 99285; C9113; G0378; J2405; J3360; J3411; J7030; Q9967

== ENCOUNTER 2019-02-13 11:43 | Emergency (ER) | payer OTHER ==
[2019-02-13] MEDS ORDERED: NA CHLORIDE 0.9% 1,000 ML ONE (12:12)
[2019-02-13 12:29] LABS: Absolute Lymphocytes (CBC) 3.1 K/uL (0.7-4.9); Basophils % 1.1 % (0-1.3); Hematocrit 46.1 % (39.6-49.0); MPV 10.3 fL (7.6-11.3); RBC Red Blood Cell Count 4.47 M/uL (4.33-5.43)
[2019-02-13 12:53] LABS: ALT/SGPT 71 U/L (12-78); AST/SGOT 161 U/L (15-37); Albumin 3.8 g/dL (3.4-5.0); Alkaline Phosphatase 89 U/L (45-117); BUN Blood Urea Nitrogen 10 mg/dL (7-18); Bicarbonate 26 mmol/L (21-32); Bilirubin Direct 0.3 mg/dL (0-0.2); Bilirubin Total 0.6 mg/dL (0.2-1.0); Glucose Level 118 mg/dL (74-106); Potassium 3.2 mmol/L (3.5-5.1); Protein, Total 9.1 g/dL (6.4-8.2); Sodium Level 138 mmol/L (136-145)
[2019-02-13 13:11] LABS: Barbiturates NEGATIVE (NEGATIVE); Benzodiazepines NEGATIVE (NEGATIVE); Cocaine NEGATIVE (NEGATIVE); METHAMPHETAM NEGATIVE (NEGATIVE); Methadone NEGATIVE (NEGATIVE); Opiates POSITIVE (NEGATIVE); Phencyclidine NEGATIVE (NEGATIVE); THC Cannibis NEGATIVE (NEGATIVE)
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
[2019-02-13] MEDS ORDERED: POTASSIUM CL SA 10 MEQ TAB PO ONE (13:37)
[2019-02-13 13:56] VITALS: TEMP 97.9
[2019-02-13 13:57] VITALS: BP 109/76; O2SAT 95
--- NOTE | 2019-02-13 14:53 | EKG ---
Test Date: 2019-02-13 Test Time: 12:27:31 Wafer Polisher: JEROMY MEASUREMENT RESULTS: Intervals: Rate: 98 AR: 194 QRSD: 78 QT: 352 QTc: 449 [place]: P: 66 AR: 194 QRS: -32 T: 46 INTERPRETIVE STATEMENTS: Normal sinus rhythm Left axis deviation Abnormal ECG Compared to ECG 10/31/2018 07:43:53 Left-axis deviation now present First degree AV block no longer present Electronically Signed On 02-13-19 14:52:14 CDT by Adalberto Nicole
[2019-02-13 19:00] LABS: Urine Blood NEGATIVE (NEG); Urine Glucose NEGATIVE (NEG); Urine Protein NEGATIVE (NEG); Urine pH 5.5 (5.0-7.0)
== END 2019-02-13 13:47 | disposition home or self-care (01) ==
LOC: ER 11:43
DX: R42 Dizziness and giddiness (principal); F10.129 Alcohol abuse with intoxication, unspecified
CPT/HCPCS: 93005; 85025; 80048; 36415; 80320; 80329 ×2; 80076; 80307 ×8; 81003; 96360; 99284; J7030

== ENCOUNTER 2019-03-05 19:12 | Observation (INO) | payer OTHER ==
--- OUTSIDE RECORDS SUMMARY | 2019-03-05 19:14 | XMS REPORT ---
:1960 [facility] Address [address] [place] [address] Dr. Kasper [address] [place] [id number] Care Team Providers Name Role Phone Unavailable Unavailable Unavailable Problems This patient has no known problems. Allergies, Adverse Reactions, Alerts This patient has no known allergies or adverse reactions. Medications This patient has no known medications.
[2019-03-05 20:01] LABS: Absolute Lymphocytes (CBC) 2.9 K/uL (0.7-4.9); Hematocrit 47.7 % (39.6-49.0); MPV 10.9 fL (7.6-11.3); RBC Red Blood Cell Count 4.62 M/uL (4.33-5.43)
[2019-03-05] MEDS ORDERED: NA CHLORIDE 0.9% 1,000 ML ONE (20:02)
[2019-03-05] MEDS ORDERED: LORazepam 2 MG/ML VIAL ONE ×2 (20:02→23:36)
[2019-03-05] MEDS ORDERED: THIAMINE 200 MG/2 ML INJ ONE (20:02)
[2019-03-05] MEDS ORDERED: MULTIVITAMINS 10 ML VIAL (INJ) IV ONE (20:02)
[2019-03-05 20:03] LABS: Blood Morphology Comment NOT SEEN (NOT SEEN); Platelet Estimate ADEQ; Platelets, Giant PRESENT; Urine White Blood Cell Casts OK
[2019-03-05] MEDS ORDERED: FOLIC ACID 5 MG/ML VIAL ONE (20:03)
[2019-03-05 20:04] LABS: Protime INR 0.96
[2019-03-05 20:51] LABS: ALT/SGPT 76 U/L (12-78); AST/SGOT 159 U/L (15-37); Albumin 3.6 g/dL (3.4-5.0); Alkaline Phosphatase 92 U/L (45-117); BUN Blood Urea Nitrogen 6 mg/dL (7-18); Bicarbonate 20 mmol/L (21-32); Bilirubin Direct 0.5 mg/dL (0-0.2); Glucose Level 141 mg/dL (74-106); Protein, Total 8.8 g/dL (6.4-8.2); Sodium Level 138 mmol/L (136-145)
[2019-03-05] MEDS ORDERED: ONDANSETRON 4 MG/2 ML VIAL ONE (22:00)
--- NOTE | 2019-03-05 23:19 | ER ---
Nurse's Notes [facility] Name: Jose Toussaint Age: 59 yrs Sex: Male : 1960 Arrival Date: 03/05/2019 Time: 19:17 Bed 14 Private MD: Diagnosis: Alcohol dependence with withdrawal, uncomplicated;Cocaine abuse with intoxication;Chest pain, unspecified Presentation: 03/05 19:17 Presenting complaint: EMS states: Patient dropped off at EMS station, complaint of ETOH lp1 binge the last 3 days, drank 1 gallon of Vodka and smoked crack this afternoon; States feeling short of breath and heart racing. Transition of care: patient was not received from another setting of care. Onset of symptoms was March 05, 2019. Risk Assessment: Do you want to hurt yourself or someone else? Patient reports no desire to harm self or others. Care prior to arrival: IV initiated. 20 GA, in the left hand. 19:17 Method Of Arrival: EMS: [facility] lp1 19:17 Acuity: SASHA 2 lp1 20:00 Initial Sepsis Screen: Does the patient meet any 2 criteria? RR > 20 per min. HR > 90 lp1 bpm. Yes Does the patient have a suspected source of infection? No. Patient's initial sepsis screen is negative. Historical: - Allergies: 19:21 No Known Allergies; lp1 - Home Meds: 19:21 Hydrocodone-Acetaminophen Oral [Active]; lisinopril 30 mg Oral tab once daily [Active]; lp1 - PMHx: 19:21 Chronic pain; Hypertension; lp1 - PSHx: 19:21 Unable to obtain; lp1 - Immunization history:: Adult Immunizations up to date. - Social history:: Smoking status: Patient uses tobacco products, smokes one pack cigarettes per day. Patient uses alcohol, on a daily basis. patient/guardian reports recent binge of alcohol consumption. street drugs, cocaine. - Ebola Screening: : No symptoms or risks identified at this time. Screenin:23 Abuse screen: Denies threats or abuse. Denies injuries from another. Nutritional lp1 screening: No deficits noted. Tuberculosis screening: No symptoms or risk factors identified. Fall Risk Total Perez Fall Scale indicates High Risk Score (45 or more points). Fall prevention measures have been instituted. Side Rails Up X 2 Placed Close to Nursing Station Frequent Obs/Assessments Occuring As available patient and family educated on Fall Prevention Program and Strategies. Assessment: 19:21 General: Appears uncomfortable, Behavior is anxious. Pain: Complains of pain in lp1 generalized Pain currently is 8 out of 10 on a pain scale. Neuro: Level of Consciousness is awake, alert, obeys commands, Oriented to person, place, situation, Gait is unsteady, Speech is normal, Reports dizziness, weakness. Cardiovascular: Reports chest pain, palpitations, Capillary refill < 3 seconds in bilateral fingers toes Patient's skin is warm and dry. Rhythm is sinus tachycardia. Respiratory: Airway is patent Respiratory effort is labored, Respiratory pattern is tachypnea Breath sounds are clear bilaterally. GI: Abdomen is non-distended, Reports nausea. : No signs and/or symptoms were reported regarding the genitourinary system. EENT: No signs and/or symptoms were reported regarding the EENT system. Derm: Skin abrasions to left arm Skin is dry, Skin is normal. Musculoskeletal: No deficits noted. 20:00 Reassessment: Provider at bedside to assess patient; patient states needing to have lp1 something to calm him down. General: Behavior is agitated, anxious. Neuro: Level of Consciousness is awake, alert, obeys commands. Respiratory: Respiratory pattern is hyperventilation. 20:44 Reassessment: Patient states symptoms have improved. General: Behavior is calm, lp1 cooperative. Neuro: Level of Consciousness is awake, alert, obeys commands. Respiratory: Respiratory effort is even, unlabored. Derm: Skin is intact, Skin is dry, Skin is normal. 21:58 Reassessment: Patient appears in no apparent distress at this time. Patient and/or lp1 family updated on plan of care and expected duration. Pain level reassessed. Patient appears calm, eyes closed, states nausea at this time; Provider notified. 22:00 Reassessment: Verbal order per Dr. Michael for Zofran 4 mg IV. lp1 22:58 Reassessment: Patient appears in no apparent distress at this time. Patient and/or fu family updated on plan of care and expected duration. Pain level reassessed. patient quietly resting in bed. 23:15 Reassessment: complaining of nausea and vomiting, patient agitated asking for Ativan, fu Dr. Michael notified. 03/06 01:00 Reassessment: Patient appears in no apparent distress at this time. Patient and/or fu family updated on plan of care and expected duration. Pain level reassessed. Vital Signs: 03/05 19:19 BP 124 / 84; Pulse 111; Resp 26; Temp 97.4(O); Pulse Ox 98% on R/A; Weight 104.33 kg; lp1 Height 6 ft. 2 in. (187.96 cm); Pain 8/10; 19:45 BP 104 / 82; Pulse 108; Resp 28; Pulse Ox 100% on R/A; lp1 20:15 BP 110 / 83; Pulse 99; Resp 26; Pulse Ox 99% on 2 lpm NC; lp1 21:30 BP 153 / 89; Pulse 101; Resp 22; Pulse Ox 97% on 2 lpm NC; lp1 22:45 BP 149 / 103; Pulse 102; Resp 19; Pulse Ox 98% ; Pain 5/10; fu 23:30 BP 153 / 99; Pulse 97; Resp 23; Pulse Ox 100% ; Pain 8/10; fu 03/06 01:15 BP 142 / 99; Pulse 107; Resp 18; Pulse Ox 98% ; Pain 6/10; fu 03/05 19:19 Body Mass Index 29.53 (104.33 kg, 187.96 cm) lp1 ED Course: 03/05 19:17 Patient arrived in ED. lp1 19:19 Triage completed. lp1 19:19 Arm band placed on right wrist. lp1 19:23 Patient has correct armband on for positive identification. Placed in gown. Bed in low lp1 position. Call light in reach. cake knocker on. Pulse ox on. NIBP on. 19:23 Maintain EMS IV. Dressing intact. Good blood return noted. Site clean \T\ dry. Gauge \T\ lp 1 site: 20g to L hand. 19:25 +ETOH, states smoking crack cocaine; Protocol used. lp1 20:00 Shira Maza, HEIDI is Primary Nurse. lp1 20:00 Scott Michael MD is Attending Physician. tw4 22:31 No provider procedures requiring assistance completed. lp1 23:17 Yamilet Gale MD is Hospitalizing Provider. tw4 03/06 01:10 Patient admitted, IV remains in place. fu Administered Medications: 03/05 20:05 Drug: Banana Bag - (NS 0.9% 1000 ml, foLIC Acid 1 mg, Thiamine 100 mg, Multivitamin 1 lp1 amp) Route: IV; Rate: calculated rate; Site: left hand; 20:05 Drug: Ativan 2 mg Route: IVP; Site: left hand; lp1 20:46 Follow up: Response: Marked relief of symptoms lp1 22:06 Drug: Zofran 4 mg Route: IVP; Site: left hand; lp1 23:39 Drug: Ativan 1 mg Route: IVP; Site: left hand; 23:56 Follow up: Response: Marked relief of symptoms fu Outcome: 23:18 Decision to Hospitalize by Provider. tw4 03/06 01:12 Admitted to Med/surg accompanied by tech, via stretcher, room 231, Report called to prashanth Victor RN Condition: stable Instructed on the need for admit, Demonstrated understanding of instructions. 01:33 Patient left the ED. fu Signatures: Shira Maza RN RN lp1 Reza Singh RN RN fu Wadley, Terrence, MD MD tw4
--- NOTE | 2019-03-05 23:19 | EDPHYS ---
Physician Documentation [facility] Name: Jose Toussaint Age: 59 yrs Sex: Male : 1960 Arrival Date: 03/05/2019 Time: 19:17 Bed 14 Private MD: ED Physician Scott Michael HPI: 03/06 04:53 This 59 yrs old Male presents to ER via EMS with complaints of ETOH Abuse. tw4 04:53 The patient or guardian reports chest pain that is located primarily in the anterior tw4 chest wall. Onset: today, started after using crack cocaine. The pain does not radiate. Associated signs and symptoms: The patient has no apparent associated signs or symptoms. The chest pain is described as dull. Duration: The patient or guardian reports a single episode, that is still ongoing. Severity of pain: At its worst the pain was moderate in the emergency department the pain has improved. The patient has not experienced similar symptoms in the past. Historical: - Allergies: 03/05 19:21 No Known Allergies; lp1 - Home Meds: 19:21 Hydrocodone-Acetaminophen Oral [Active]; lisinopril 30 mg Oral tab once daily [Active]; lp1 - PMHx: 19:21 Chronic pain; Hypertension; lp1 - PSHx: 19:21 Unable to obtain; lp1 - Immunization history:: Adult Immunizations up to date. - Social history:: Smoking status: Patient uses tobacco products, smokes one pack cigarettes per day. Patient uses alcohol, on a daily basis. patient/guardian reports recent binge of alcohol consumption. street drugs, cocaine. - Ebola Screening: : No symptoms or risks identified at this time. ROS: 03/06 04:53 Constitutional: Negative for fever, chills, and weight loss, Eyes: Negative for injury, tw4 pain, redness, and discharge, Respiratory: Negative for shortness of breath, cough, wheezing, and pleuritic chest pain, Abdomen/GI: Negative for abdominal pain, nausea, vomiting, diarrhea, and constipation. Back: Negative for injury and pain, MS/Extremity: Negative for injury and deformity, Skin: Negative for injury, rash, and discoloration. Cardiovascular: Positive for chest pain, Negative for edema, orthopnea, palpitations, paroxysmal nocturnal dyspnea. Exam: 04:53 Head/Face: Normocephalic, atraumatic. tw4 04:53 Chest/axilla: Normal chest wall appearance and motion. Nontender with no deformity. No lesions are appreciated. Respiratory: Lungs have equal breath sounds bilaterally, clear to auscultation and percussion. No rales, rhonchi or wheezes noted. No increased work of breathing, no retractions or nasal flaring. Abdomen/GI: Soft, non-tender, with normal bowel sounds. No distension or tympany. No guarding or rebound. No evidence of tenderness throughout. Back: No spinal tenderness. No costovertebral tenderness. Full range of motion. MS/ Extremity: Pulses equal, no cyanosis. Neurovascular intact. Full, normal range of motion. Neuro: Awake and alert, GCS 15, oriented to person, place, time, and situation. Cranial nerves II-XII grossly intact. Motor strength 5/5 in all extremities. Sensory grossly intact. Cerebellar exam normal. Normal gait. 04:53 Constitutional: The patient appears anxious, in obvious distress, mildly distressed. 04:53 Cardiovascular: Rate: tachycardic. Vital Signs: 03/05 19:19 BP 124 / 84; Pulse 111; Resp 26; Temp 97.4(O); Pulse Ox 98% on R/A; Weight 104.33 kg; lp1 Height 6 ft. 2 in. (187.96 cm); Pain 8/10; 19:45 BP 104 / 82; Pulse 108; Resp 28; Pulse Ox 100% on R/A; lp1 20:15 BP 110 / 83; Pulse 99; Resp 26; Pulse Ox 99% on 2 lpm NC; lp1 21:30 BP 153 / 89; Pulse 101; Resp 22; Pulse Ox 97% on 2 lpm NC; lp1 22:45 BP 149 / 103; Pulse 102; Resp 19; Pulse Ox 98% ; Pain 5/10; fu 23:30 BP 153 / 99; Pulse 97; Resp 23; Pulse Ox 100% ; Pain 8/10; fu 03/06 01:15 BP 142 / 99; Pulse 107; Resp 18; Pulse Ox 98% ; Pain 6/10; fu 03/05 19:19 Body Mass Index 29.53 (104.33 kg, 187.96 cm) lp1 MDM: 03/05 20:00 Patient medically screened. tw4 03/06 04:56 Differential diagnosis: acute pericarditis, anxiety, cholecystitis, Cholelithiasis tw4 costochondritis, herpes zoster, hiatal hernia, pulmonary embolus, stable angina, thoracic aortic disection. Data reviewed: vital signs, nurses notes. Counseling: I had a detailed discussion with the patient and/or guardian regarding: the historical points, exam findings, and any diagnostic results supporting the discharge/admit diagnosis, lab results, radiology results. Physician consultation: Yamilet Gale MD regarding admission, to the telemetry unit. patient's condition, and will see patient in inpatient room. 03/05 19:24 Order name: Acetaminophen lp1 03/05 19:24 Order name: Basic Metabolic Panel lp1 03/05 19:24 Order name: CBC with Diff lp1 03/05 19:24 Order name: ETOH Level lp 03/05 19:24 Order name: Hepatic Function lp 03/05 19:24 Order name: PT-INR [facility] 03/05 19:24 Order name: Ptt, Activated lp 03/05 19:24 Order name: Salicylate [facility] 03/05 19:24 Order name: Urine Drug Screen [facility] 03/05 19:38 Order name: Glucose, Ancillary Testing [facility] 03/05 20:04 Order name: CBC Smear Scan [facility] 03/05 23:30 Order name: Lipid Profile [facility] 03/05 23:30 Order name: Lipid Profile [facility] 03/05 23:30 Order name: Troponin I [facility] 03/05 19:24 Order name: EKG; Complete Time: 19:26 [facility] 03/05 19:24 Order name: EKG - Nurse/Tech; Complete Time: 19:24 1 03/05 19:24 Order name: IV Saline Lock; Complete Time: 19:24 1 03/05 19:24 Order name: Labs collected and sent; Complete Time: 19:24 1 03/05 23:30 Order name: CONS Physician Consult EDNM 03/05 23:30 Order name: Heart Healthy EDNM 03/05 23:30 Order name: Echo with Doppler EDNM 03/05 23:30 Order name: EKG Electrocardiogram EDNM 03/05 23:30 Order name: EKG Electrocardiogram EDNM 03/05 23:30 Order name: Troponin I EDNM 03/05 23:30 Order name: Troponin I EDMS Administered Medications: 03/05 20:05 Drug: Banana Bag - (NS 0.9% 1000 ml, foLIC Acid 1 mg, Thiamine 100 mg, Multivitamin 1 lp1 amp) Route: IV; Rate: calculated rate; Site: left hand; 20:05 Drug: Ativan 2 mg Route: IVP; Site: left hand; lp1 20:46 Follow up: Response: Marked relief of symptoms lp1 22:06 Drug: Zofran 4 mg Route: IVP; Site: left hand; lp1 23:39 Drug: Ativan 1 mg Route: IVP; Site: left hand; fu 23:56 Follow up: Response: Marked relief of symptoms fu Disposition: 03/05/19 23:18 Hospitalization ordered by Yamilet Gale for Inpatient Admission. Preliminary diagnosis are Alcohol dependence with withdrawal, uncomplicated, Cocaine abuse with intoxication, Chest pain, unspecified. - Bed requested for Telemetry/MedSurg (Inpatient). - Status is Inpatient Admission. fu - Condition is Stable. - Problem is an ongoing problem. - Symptoms are unchanged. UTI on Admission? No Signatures: Dispatcher [employer] EDMS Shira Maza RN RN lp1 Caryl Giraldo RN RN Reza Singh RN RN Yamilet Guardado MD MD ma2 Scott Michael MD MD tw4 Corrections: (The following items were deleted from the chart) 03/06 00:02 03/05 23:18 Hospitalization Ordered by Yamilet Gale MD for Inpatient Admission. cg Preliminary diagnosis is Alcohol dependence with withdrawal, uncomplicated; Cocaine abuse with intoxication; Chest pain, unspecified. Bed requested for Telemetry/MedSurg (Inpatient). Status is Inpatient Admission. Condition is Stable. Problem is an ongoing problem. Symptoms are unchanged. UTI on Admission? No. tw4 03/06 01:33 00:02 03/05/2019 23:18 Hospitalization Ordered by Yamilet Gale MD for Inpatient fu Admission. Preliminary diagnosis is Alcohol dependence with withdrawal, uncomplicated; Cocaine abuse with intoxication; Chest pain, unspecified. Bed requested for Telemetry/MedSurg (Inpatient). Status is Inpatient Admission. Condition is Stable. Problem is an ongoing problem. Symptoms are unchanged. UTI on Admission? No. cg
[2019-03-05] MEDS ORDERED: MORPHINE 4 MG/ML SYR IV PRN (23:25)
[2019-03-05] MEDS ORDERED: ACETAMINOPHEN 500 MG TAB PO PRN (23:25)
[2019-03-05] MEDS ORDERED: NA CHLORIDE 0.9% 1,000 ML IV SCH (23:45)
[2019-03-06] MEDS ORDERED: DILTIAZEM HCL 60 MG TAB PO ONE (00:25)
[2019-03-06 01:37] VITALS: BMI 27.2
[2019-03-06] MEDS: ALPRAZOLAM 0.25 MG TABLET PO PRN ×2 (02:24→21:36)
[2019-03-06] MEDS ORDERED: LORazepam 2 MG/ML VIAL IV ONE ×2 (02:39→05:16)
[2019-03-06 03:46] LABS: Urine Appearance CLEAR; Urine Bilirubin NEGATIVE (NEG); Urine Blood NEGATIVE (NEG); Urine Color DK YELLOW; Urine Glucose NEGATIVE (NEG); Urine Protein TRACE (NEG); Urine Specific Gravity 1.015 (1.005-1.030)
[2019-03-06 03:48] LABS: Urine Microscopic Reflex ORDER UMIC
[2019-03-06 03:54] LABS: Barbiturates NEGATIVE (NEGATIVE); Benzodiazepines NEGATIVE (NEGATIVE); Cocaine POSITIVE (NEGATIVE); METHAMPHETAM NEGATIVE (NEGATIVE); Methadone NEGATIVE (NEGATIVE); Opiates NEGATIVE (NEGATIVE); Phencyclidine NEGATIVE (NEGATIVE); THC Cannibis NEGATIVE (NEGATIVE)
[2019-03-06 03:57] LABS: Urine Bacteria <20 /HPF (NONE SEEN); Urine Culture Reflex Order NOT NEEDED; Urine Mucus 1+ /HPF (NONE SEEN); Urine RBC <5 /HPF (NONE SEEN)
[2019-03-06] MEDS ORDERED: PROMETHAZINE 25 MG/ML VIAL IV ONE (04:17)
[2019-03-06] MEDS ORDERED: NA CHLORIDE 0.9% 50 ML ONE (04:34)
[2019-03-06] MEDS: ENOXAPARIN 100 MG/ML SYR SQ SCH ×2 (04:35→17:26)
[2019-03-06 06:01] LABS: Potassium 3.6 mmol/L (3.5-5.1)
--- NOTE | 2019-03-06 06:13 | EKG ---
Test Date: 2019-03-05 Test Time: 19:15:46 Dispatcher Radio: COBY MEASUREMENT RESULTS: Intervals: Rate: 105 [place]: 194 QRSD: 74 QT: 364 QTc: 481 [place]: P: 65 [place]: 194 QRS: -45 T: 55 INTERPRETIVE STATEMENTS: Sinus tachycardia Left anterior fascicular block Abnormal ECG Compared to ECG 02/13/2019 12:27:31 Left anterior fascicular block now present Sinus rhythm no longer present Left-axis deviation no longer present Electronically Signed On 03-06-19 06:12:49 COAL DELIVERER by Adalberto Nicole
[2019-03-06] MEDS: chlordiazePOXIDE HCl 5 MG CAP PO SCH ×4 (06:44→23:35)
[2019-03-06] MEDS: ASPIRIN EC 81 MG TAB PO SCH (08:08)
[2019-03-06] MEDS ORDERED: METOCLOPRAMIDE 10 MG/2mL INJ IV PRN (08:26)
--- NOTE | 2019-03-06 08:54 | P.HP ---
Certification for Inpatient Patient admitted to: Observation With expected LOS: <2 Midnights Patient will require the following post-hospital care: None Practitioner: I am a practitioner with admitting privileges, knowledge of patient current condition, hospital course, and medical plan of care. Services: Services provided to patient in accordance with Admission requirements found in Title 42 Section 412.3 of the Code of Federal Regulations Patient History Date of Service: 03/06/19 Reason for admission: Chest pain rule out acute coronary syndrome; cocaine use; alcohol abuse History of Present Illness: Patient is a 59-year-old gentleman who came into the hospital with chest discomfort. Patient is a poor historian as he has intoxication with alcohol. Also be using cocaine. His pain was mainly in the sternal region and along the left side of his chest scar. He apparently had some kind of lung procedure. He is not really able to describe what he had done. Initial EKG and troponins were negative. He will be admitted to the hospital to be ruled out for acute coronary syndrome. Allergies No Known Drug Allergies Allergy (Verified 03/06/19 01:49) Unknown No Known [place]au Allergy (Uncoded 03/06/19 01:49) Unknown No Known Allergies Allergy (Uncoded 03/06/19 01:49) Unknown - Past Medical/Surgical History Has patient received pneumonia vaccine in the past: No Diabetic: No -: Hypertension -: Tonsillectomy -: Internal fixation clavicle,ribs -: REpair of lung tear - Family History Father Medical History: Cancer Notes: Cancer nose Mother Medical History: Other (see notes) Notes: CHF - Social History Smoking Status: Current some day smoker Alcohol use: Yes Place of Residence: Home Review of Systems 10-point ROS is otherwise unremarkable Physical Examination - Vital Signs Temperature: 98.3 F Blood Pressure: 137/90 Pulse: 54 Respirations: 20 Pulse Ox (%): 97 - Physical Exam General: Alert, In no apparent distress, Confused, Other (Intoxicated) HEENT: Atraumatic, PERRLA, Mucous membr. moist/pink, EOMI, Sclerae nonicteric Neck: Supple, 2+ carotid pulse no bruit, No LAD, Without JVD or thyroid abnormality Respiratory: Clear to auscultation bilaterally, Normal air movement Cardiovascular: Regular rate/rhythm, Normal S1 S2, No murmurs Gastrointestinal: Normal bowel sounds, Soft and benign, Non-distended, No tenderness Musculoskeletal: Tenderness (Sternal region) Integumentary: No rashes Neurological: Normal gait, Normal speech, Normal strength at 5/5 x4 extr, Normal tone, Sensation intact, Cranial nerves 3-12 intact, Normal affect Lymphatics: No axilla or inguinal lymphadenopathy - Studies Laboratory Data (last 24 hrs) 03/05/19 19:15: PT 11.3, INR 0.96, APTT 28.4 03/05/19 19:15: WBC 11.9 H, Hgb 16.6, Hct 47.7, Plt Count 213 03/05/19 19:15: Sodium 138, Potassium 3.0 L, BUN 6 L, Creatinine 1.47 H, Glucose 141 H, Total Bilirubin 1.0, AST 159 H, ALT 76, Alkaline Phosphatase 92 Assessment & Plan - Problems (Diagnosis) (1) Chest pain, rule out acute myocardial infarction Current Visit: Yes Status: Acute (2) Cocaine abuse Current Visit: Yes Status: Acute (3) Alcohol abuse Current Visit: No Status: Chronic (4) Hypertension Current Visit: Yes Status: Acute - Plan 1. Serial troponins and EKG 2. Cardiology consultation 3. Echocardiogram and further intervention studies per Cardiology recommendation 4. Anti-platelet therapy, anti coagulation, beta-meghan, statin, and O2 as needed 5. IV morphine for pain 6. Continue Librium scheduled and Ativan as needed 7. The patient may need B12 & folic acid because of alcohol use/may give banana baG 8. Strict blood pressure control 9. GI and DVT prophylaxis Discharge Plan: Home Plan to discharge in: 24 Hours - Advance Directives Does patient have a Living Will: No Does patient have a Durable POA for Healthcare: No - Code Status/Comfort Care Code Status Assessed: Yes Code Status: Full Code Critical Care: No Time Spent Managing PTS Care (In Minutes): 45
[2019-03-06] MEDS ORDERED: POTASSIUM CL SA 10 MEQ TAB PO ONE (09:00)
[2019-03-06] MEDS ORDERED: SODIUM CHLORIDE 0.9% 10ML INJ IV PRN (09:07)
[2019-03-06] MEDS ORDERED: HYDROCODONE/APAP 5/325 MG TAB PO PRN (09:17)
[2019-03-06] MEDS: SUCRALFATE 1 GM TABLET PO SCH ×3 (12:18→21:26)
[2019-03-06] MEDS: PANTOPRAZOLE 40 MG INJ IVP SCH ×2 (12:18→21:29)
--- NOTE | 2019-03-06 14:04 | ECHO ---
HEIGHT: 6 ft 2 in WEIGHT: 212 lb 4.8 oz DATE OF STUDY: 03/06/[address]: Yamilet Gale MD 2-DIMENSIONAL: YES M.MODE: YES DOPPLER: YES COLOR FLOW: YES TDS: YES PORTABLE: NO DEFINITY: NO BUBBLE STUDY: NO DIAGNOSIS: CHEST PAIN/ RULE OUT ACUTE CORONARY SYNDROME CARDIAC HISTORY: CATHERIZATION: NO SURGERY: NO PROSTHETIC VALVE: NO PACEMAKER: NO MEASUREMENTS (cm) DIASTOLIC (NORMALS) SYSTOLIC (NORMALS) IVSd 1.1 (0.6-1.2) LA Diam 3.3 (1.9-4.0) LVEF 70% LVIDd 3.9 (3.5-5.7) LVIDs 2.4 (2.0-3.5) %FS 39% LVPWd 1.2 (0.6-1.2) Ao Diam 3.1 (2.0-3.7) 2 DIMENSIONAL ASSESSMENT: RIGHT ATRIUM: NORMAL LEFT ATRIUM: NORMAL RIGHT VENTRICLE: NORMAL LEFT VENTRICLE: NORMAL TRICUSPID VALVE: NORMAL MITRAL VALVE: NORMAL PULMONIC VALVE: NORMAL AORTIC VALVE: NORMAL PERICARDIAL EFFUSION: NONE AORTIC ROOT: NORMAL LEFT VENTRICULAR WALL MOTION: NORMAL. DOPPLER/COLOR FLOW: NORMAL. COMMENTS: TECHNICALLY DIFFICULT STUDY. GROSSLY NORMAL LEFT VENTRICULAR EJECTION FRACTION AND SIZE. NO WALL MOTION ABNORMALITY. NO EFFUSION. TECHNOLOGIST: DAGO MONTES DE OCA
--- NOTE | 2019-03-06 14:12 | EKG ---
Test Date: 2019-03-06 Test Time: 07:56:03 Data Entry Analyst: JEROMY MEASUREMENT RESULTS: Intervals: Rate: 105 IN: 196 QRSD: 76 QT: 360 QTc: 475 [place]: P: 65 IN: 196 QRS: -25 T: 59 INTERPRETIVE STATEMENTS: Sinus tachycardia Otherwise normal ECG Compared to ECG 03/05/2019 19:15:46 Left anterior fascicular block no longer present Electronically Signed On 03-06-19 14:11:41 LINEMAN A CLASS by Adalberto Nicole
--- NOTE | 2019-03-06 17:53 | CON ---
Date of Consultation: 03/06/[address] Gale's service on 03/05/2019. I saw the patient on 03/06/2019. Reason For Consultation: Chest pain. History Of Present Illness: Mr. Toussaint is a fairly young male without any significant past cardiac history. He is alcohol. He came in with mid-epigastric chest pain, nausea, and vomiting for about 3 days. No PND, orthopnea, pedal edema, palpitations, or syncope. His blood screen is positive for a lcohol. Glucose was 131. His white count was 5000, creatinine is 1.47 with potassium of 3.0. EKG i s normal. Troponin is normal. BNP is normal. Past Medical History: hypertension, alcohol abuse. Allergies: NONE. Review of Systems: Negative. Social History: Positive for alcohol and tobacco. Family History: Noncontributory. Medications: At home include Tylenol No. 3 and lisinopril. Physical Examination: General: The patient was in a moderate distress from midepigastric pain. Vital Signs: Stable. Afebrile. Sinus rhythm. HEENT: Negative. Neck: Supple with no bruit. Chest: Clear. Cardiac: Revealed a regular rhythm and rate. No murmurs, gallops, or rubs. Abdomen: Benign. Extremities: Revealed no clubbing, cyanosis, or edema. Diagnostic Data: As stated earlier. Impression And Plan: Chest pain possibly secondary to mid epigastric and esophageal pain secondary t o esophagitis or gastritis. It was felt he could have pancreatitis, although the blood level did not show that. I would recommend a clear liquid diet. Echocardiography to rule out pericarditis. Hydr ation, potassium supplementation, education regarding the alcohol. I will continue to follow him. NB/MODL Voice ID: [id number] Report ID: [id number]
[2019-03-06] MEDS ORDERED: PANTOPRAZOLE 40 MG INJ IVP SCH (21:00)
[2019-03-06] MEDS: LORazepam 2 MG/ML VIAL IV PRN (23:36)
[2019-03-07 03:20] LABS: Folic Acid, (Folate) 4.9 ng/mL (3.1-17.5)
[2019-03-07] MEDS: ENOXAPARIN 100 MG/ML SYR SQ SCH (05:38)
[2019-03-07] MEDS: LORazepam 2 MG/ML VIAL IV PRN (05:39)
[2019-03-07] MEDS: chlordiazePOXIDE HCl 5 MG CAP PO SCH (05:39)
[2019-03-07] MEDS: ASPIRIN EC 81 MG TAB PO SCH (08:31)
[2019-03-07] MEDS: PANTOPRAZOLE 40 MG INJ IVP SCH (08:31)
[2019-03-07] MEDS: SUCRALFATE 1 GM TABLET PO SCH (08:31)
[2019-03-07 08:46] VITALS: O2SAT 93
[2019-03-07 08:58] VITALS: BP 146/82; TEMP 99.5
[2019-03-07] MEDS ORDERED: FOLIC ACID 1 MG, MULTIVITAMINS INJ 10 ML, THIAMINE HCL 100 MG in NA CHLORIDE 0.9% 1,000 ML IV SCH (09:00)
--- NOTE | 2019-03-07 14:51 | P.DS ---
Admission Date: 03/05/19 Discharge Date: 03/07/19 [facility] Disposition: A[facility]-LEFT AGAINST MEDICAL ADVIC Discharge Condition: GOOD Reason for Admission: Chest pain rule out acute coronary syndrome; cocaine use; alcohol abuse Consultations: Cardiology-Dr. Nicole Procedures: ECHO: Ejection fraction 70% LEFT VENTRICULAR WALL MOTION: NORMAL. DOPPLER/COLOR FLOW: NORMAL. COMMENTS: TECHNICALLY DIFFICULT STUDY. GROSSLY NORMAL LEFT VENTRICULAR EJECTION FRACTION AND SIZE. NO WALL MOTION ABNORMALITY. NO EFFUSION. Medical Problem List: Chest pain likely GERD related Acute renal injury likely dehydration B12 deficiency Alcohol abuse with intoxication and possible withdrawal Cocaine abuse Hypertension Brief History of Present Illness: 59-year-old male presented to the emergency room chest pain. It was primarily to the epigastric region. Patient was admitted for further evaluation. Patient was found to be positive for alcohol and cocaine. Hospital Course: Patient presented with chest pain. It was mainly to the epigastric region. Patient seen and evaluated by Cardiology. Cardiology felt this was likely GERD/ gastritis related. Patient was positive for cocaine and alcohol. Patient was given IV fluids due to acute renal injury and alcohol abuse with intoxication. Patient was to continue with fluids but became very agitated. Patient refused to stay in the hospital to continue IV fluids and to monitor alcohol withdrawal. Concerns were addressed with the patient. Patient understands the risks of leaving the hospital. Patient was counseled to remain in the hospital. Patient eventually left against medical advice. Vital Signs/Physical Exam: Temp Pulse Resp BP Pulse Ox 99.5 F 78 19 146/82 H 93 03/07/19 08:00 03/07/19 08:00 03/07/19 08:00 03/07/19 08:00 03/07/19 08:00 General: Alert, Disheveled HEENT: Atraumatic Neck: Supple Respiratory: Clear to auscultation bilaterally, Normal air movement Cardiovascular: Normal pulses, Regular rate/rhythm Neurological: Other (Increase agitation noted. Likely mild alcohol withdrawal) Laboratory Data at Discharge: WBC 11.9 K/uL (4.3-10.9) H 03/05/19 19:15 Hgb 16.6 g/dL (13.6-17.9) 03/05/19 19:15 Hct 47.7 % (39.6-49.0) 03/05/19 19:15 Plt Count 213 K/uL (152-406) 03/05/19 19:15 PT 11.3 SECONDS (9.5-12.5) 03/05/19 19:15 INR 0.96 03/05/19 19:15 APTT 28.4 SECONDS (24.3-36.9) 03/05/19 19:15 Sodium 142 mmol/L (136-145) 03/06/19 05:34 Potassium 3.6 mmol/L (3.5-5.1) 03/06/19 05:34 BUN 9 mg/dL (7-18) 03/06/19 05:34 Creatinine 1.41 mg/dL (0.55-1.3) H 03/06/19 05:34 Glucose 130 mg/dL (74-106) H 03/06/19 05:34 Total Bilirubin 1.0 mg/dL (0.2-1.0) 03/05/19 19:15 AST 159 U/L (15-37) H 03/05/19 19:15 ALT 76 U/L (12-78) 03/05/19 19:15 Alkaline Phosphatase 92 U/L (45-117) 03/05/19 19:15 Troponin I < 0.02 ng/mL (0.0-0.045) 03/07/19 01:52 Triglycerides 83 mg/dL (<150) 03/06/19 01:06 Cholesterol 203 mg/dL (<200) H 03/06/19 01:06 HDL Cholesterol 115 mg/dL (40-60) H 03/06/19 01:06 Cholesterol/HDL Ratio 1.77 03/06/19 01:06 Home Medications: Lisinopril 30 mg PO DAILY 03/06/19 NIFEdipine [Adalat cc] 30 mg PO DAILY 03/06/19 Venlafaxine HCl [Venlafaxine HCl ER] 37.5 mg PO DAILY 03/06/19 Patient Discharge Instructions: Patient left against medical advice. Diet: AHA Activity: Fall precautions Time spent managing pt's care (in minutes): 45
== END 2019-03-07 10:00 | disposition left against medical advice (07) ==
LOC: ER 19:12 → ERHOLD 23:25 → 2ND 03-06 01:11
PROVIDERS: ADMIT Internal Medicine; ATTEND Hospitalist
DX: R07.9 Chest pain, unspecified (principal); N17.9 Acute kidney failure, unspecified; E53.8 Deficiency of other specified B group vitamins; F10.129 Alcohol abuse with intoxication, unspecified; F14.10 Cocaine abuse, uncomplicated; I10 Essential (primary) hypertension
CPT/HCPCS: 93005 ×2; 93306; 85025; 80048 ×2; 36415 ×2; 80320; 80329 ×2; 85610; 80061; 82947; 80076; 80307 ×8; 85730; 84484 ×4; 82746; 82607; 96375; 96374; 99285; J2765; J2550; J3411; C9113 ×3; J1650 ×3; J7030 ×2; J2405; G0378 ×3; 81003; 81015

== ENCOUNTER 2019-06-18 20:57 | Inpatient (IN) | payer OTHER ==
--- OUTSIDE RECORDS SUMMARY | 2019-06-18 20:59 | XMS REPORT ---
:1960 [facility] Address [address] [place] [address] Dr. Kasper [address] [place] [address] Care Team Providers Name Role Phone Unavailable Unavailable Unavailable Problems This patient has no known problems. Allergies, Adverse Reactions, Alerts This patient has no known allergies or adverse reactions. Medications This patient has no known medications.
--- OUTSIDE RECORDS SUMMARY | 2019-06-18 21:01 | XMS REPORT | Summary of Care ---
:1960 Author Organization [facility] Address [address] [place] [address] Care Team Providers Name Role Phone Kye Lee MD Primary Care Provider Reason for Visit Reason Comments Refill Request Encounter Details Date Type Department Care Team Description 06/06/2019 Refill [facility] and Kye Lee MD Refill Request Adult Primary Care- [address] [place] [address] Dr Muñoz [facility] [address] [place] [address] , [place] [address] [address] [place] [phone] [phone] Allergies No Known Allergiesdocumented as of this encounter (statuses as of 06/06/2019) Medications Medication Sig Dispensed Refills Start Date End Date Status gabapentin 100 mg Take 1 capsule 90 capsule 0 08/08/2018 Active capsuleIndications by mouth 3 : Alcohol (three) times withdrawal daily. syndrome with complication magnesium oxide Take 400 mg by 60 tablet 0 08/08/2018 Active 420 mg mouth 2 (two) TabIndications: times daily. Alcohol withdrawal syndrome with complication NIFEdipine ER 30 Take 1 tablet 30 tablet 11 08/28/2018 Active mg SR by mouth daily. tabletIndications: Essential hypertension tamsulosin 0.4 mg Take 1 capsule 30 capsule 11 08/28/2018 Active 24 hr by mouth daily. capsuleIndications : Essential hypertension lidocaine 5 % (700 Apply 1 Patch 30 Patch 11 11/28/2018 Active mg/patch) to area(s) patchIndications: daily. Alcohol withdrawal syndrome with complication HYDROcodone-acetam TAKE BY MOUTH 1 0 02/10/2019 Active inophen 7.5-325 mg TABLET 2-3 per tablet TIMES A DAY NEEDED LISINOPRIL 30 mg TAKE 1 TABLET 30 tablet 11 03/24/2019 Active tabletIndications: BY MOUTH EVERY Essential DAY hypertension thiamine 100 mg Take 1 tablet 30 tablet 3 03/25/2019 Active tabletIndications: by mouth daily. Alcohol withdrawal syndrome without complication KCL 20 mEq Take 1 tablet 30 tablet 3 03/25/2019 Active tabletIndications: by mouth daily. Alcohol withdrawal syndrome without complication pantoprazole 40 mg Take 1 tablet 30 tablet 3 03/25/2019 Active EC by mouth daily. tabletIndications: Acute alcoholic gastritis without hemorrhage, Alcohol withdrawal syndrome without complication furosemide 20 mg Take 1 tablet 30 tablet 2 03/25/2019 Active tabletIndications: by mouth once Swelling daily as needed (Swelling). foLIC acid 1 mg Take 1 tablet 30 tablet 3 03/25/2019 Active tabletIndications: by mouth daily. Acute alcoholic gastritis without hemorrhage, Alcohol withdrawal syndrome without complication VENLAFAXINE XR TAKE 1 CAPSULE 30 capsule 2 06/06/2019 Active 37.5 mg 24 hr BY MOUTH EVERY capsuleIndications DAY WITH : Chronic pain due BREAKFAST to trauma VENLAFAXINE XR TAKE 1 CAPSULE 30 capsule 2 02/14/2019 Discontinued 37.5 mg 24 hr BY MOUTH DAILY 0 capsuleIndications WITH BREAKFAST. : Chronic pain due to trauma documented as of this encounter (statuses as of 06/06/2019) Active Problems Problem Noted Date Swelling 03/25/2019 Alcohol withdrawal 03/23/2019 Dental caries 10/11/2018 Chronic pain due to trauma 10/11/2018 Chronic hepatitis C without hepatic coma 10/11/2018 Chest pain 08/07/2018 Alcohol withdrawal syndrome with complication 08/06/2018 Essential hypertension 04/30/2018 Obesity due to excess calories with serious comorbidity 04/30/2018 documented as of this encounter (statuses as of 06/06/2019) Social History Tobacco Use Types Packs/Day Years Used Date Current Every Day Smoker Cigarettes 1 40 Smokeless Tobacco: Never Used Alcohol Use Drinks/Week oz/Week Comments Yes Alcohol Habits Answer Date Recorded How often do you have a drink containing 4 or more times a week 03/23/2019 alcohol? How many drinks containing alcohol do you have 7 to 9 03/23/2019 on a typical day when you are drinking? How often do you have six or more drinks on one Daily or almost daily 2018 occasion? Sex Assigned at Date Recorded Not on file Job Start Date Occupation Industry Not on file Not on file Not on file Travel History Travel Start Travel End No recent travel history available. documented as of this encounter Last Filed Vital Signs Not on filedocumented in this encounter Plan of Treatment Health Maintenance Due Date Last Done Comments PNEUMOCOCCAL 0-64 YEARS COMBINED SERIES (1 of 1 - 1967 PPSV23) DTaP,Tdap,and Td Vaccines (1 - Tdap) 01/08/1972 COLONOSCOPY 2011 Zoster Recombinant Vaccine (SHINGRIX) (1 of 2) 2011 LUNG CANCER SCREEN: Recommended for age 55-80 with 30 01/08/2016 + pack year history INFLUENZA VACCINE (#1) 2018 HEPATITIS C (HCV) SCREEN Completed 08/07/2018 documented as of this encounter Results Not on filedocumented in this encounter Visit Diagnoses Diagnosis Chronic pain due to trauma documented in this encounter Insurance Payer Benefit Plan / Subscriber ID Effective Phone Address Type Group Dates [employer] xxxxxxxxx 2017-Jessica [place] [id number] [place] [address] documented as of this encounter
--- OUTSIDE RECORDS SUMMARY | 2019-06-18 21:01 | XMS REPORT | Summary of Care ---
:1960 Author Organization [facility] Address [address] [place] [address] Care Team Providers Name Role Phone Kye Lee MD Primary Care Provider Encounter Details Date Type Department Care Team Description 06/04/2019 Orders Only [facility] Doctor Unassigned, No [address] [facility] [place] [address] [address] [place] [address] Allergies No Known Allergiesdocumented as of this encounter (statuses as of 06/04/2019) Medications Medication Sig Dispensed Refills Start Date End Date Status gabapentin 100 mg Take 1 capsule by 90 capsule 0 08/08/2018 Active capsuleIndications: mouth 3 (three) Alcohol withdrawal times daily. syndrome with complication magnesium oxide 420 mg Take 400 mg by 60 tablet 0 08/08/2018 Active TabIndications: mouth 2 (two) Alcohol withdrawal times daily. syndrome with complication NIFEdipine ER 30 mg SR Take 1 tablet by 30 tablet 11 08/28/2018 Active tabletIndications: mouth daily. Essential hypertension tamsulosin 0.4 mg 24 Take 1 capsule by 30 capsule 11 08/28/2018 Active hr capsuleIndications: mouth daily. Essential hypertension lidocaine 5 % (700 Apply 1 Patch to 30 Patch 11 11/28/2018 Active mg/patch) area(s) daily. patchIndications: Alcohol withdrawal syndrome with complication VENLAFAXINE XR 37.5 mg TAKE 1 CAPSULE BY 30 capsule 2 02/14/2019 Active 24 hr MOUTH DAILY WITH capsuleIndications: BREAKFAST. Chronic pain due to trauma HYDROcodone-acetaminop TAKE BY MOUTH 1 0 02/10/2019 Active hen 7.5-325 mg per TABLET 2-3 TIMES tablet A DAY NEEDED LISINOPRIL 30 mg TAKE 1 TABLET BY 30 tablet 11 03/24/2019 Active tabletIndications: MOUTH EVERY DAY Essential hypertension thiamine 100 mg Take 1 tablet by 30 tablet 3 03/25/2019 Active tabletIndications: mouth daily. Alcohol withdrawal syndrome without complication KCL 20 mEq Take 1 tablet by 30 tablet 3 03/25/2019 Active tabletIndications: mouth daily. Alcohol withdrawal syndrome without complication pantoprazole 40 mg EC Take 1 tablet by 30 tablet 3 03/25/2019 Active tabletIndications: mouth daily. Acute alcoholic gastritis without hemorrhage, Alcohol withdrawal syndrome without complication furosemide 20 mg Take 1 tablet by 30 tablet 2 03/25/2019 Active tabletIndications: mouth once daily Swelling as needed (Swelling). foLIC acid 1 mg Take 1 tablet by 30 tablet 3 03/25/2019 Active tabletIndications: mouth daily. Acute alcoholic gastritis without hemorrhage, Alcohol withdrawal syndrome without complication documented as of this encounter (statuses as of 06/04/2019) Active Problems Problem Noted Date Swelling 03/25/2019 Alcohol withdrawal 03/23/2019 Dental caries 10/11/2018 Chronic pain due to trauma 10/11/2018 Chronic hepatitis C without hepatic coma 10/11/2018 Chest pain 08/07/2018 Alcohol withdrawal syndrome with complication 08/06/2018 Essential hypertension 04/30/2018 Obesity due to excess calories with serious comorbidity 04/30/2018 documented as of this encounter (statuses as of 06/04/2019) Social History Tobacco Use Types Packs/Day Years [...] PNEUMOCOCCAL 0-64 YEARS COMBINED SERIES (1 of - 1967 PPSV23) DTaP,Tdap,and Td Vaccines (1 - Tdap) 01/08/1972 COLONOSCOPY 2011 Zoster Recombinant Vaccine (SHINGRIX) (1 of 2) 2011 LUNG CANCER SCREEN: Recommended for age 55-80 with 30 01/08/2016 + pack year history INFLUENZA VACCINE (#1) 2018 HEPATITIS C (HCV) SCREEN Completed 08/07/2018 documented as of this encounter Procedures Procedure Name Priority Date/Time Associated Diagnosis Comments CONSENT/REFUSAL FOR Routine 06/04/2019 5:00 PM [employer] [facility] DI[facility]NOSIS [facility] TREATMENT documented in this encounter Results Not on filedocumented in this encounter Insurance Payer Benefit Plan / Subscriber ID Effective Phone Address Type Group Dates [employer] xxxxxxxxx 2017-Jessica [place]VE[place] [id number] [place] [address] documented as of this encounter
--- OUTSIDE RECORDS SUMMARY | 2019-06-18 21:01 | XMS REPORT | Summary of Care ---
:1960 Author Organization [facility] Address [address] [place] [address] Care Team Providers Name Role Phone Kye Lee MD Primary Care Provider Reason for Visit Reason Comments Alcohol Problem Auth/Cert Status Reason Specialty Diagnoses / Referred By Referred To Procedures Contact Contact [facility] [address] [place] [address] [place] [address] Encounter Details Date Type Department Care Team Description 06/04/2019 Emergency [facility] [address] [place] [address] ZEE Moyer [id number] Allergies No Known Allergiesdocumented as of this [...] of this encounter Last Filed Vital Signs Vital Sign Reading Time Taken Comments Blood Pressure 111/86 06/04/2019 5:19 PM MANAGER CONSUMER Pulse 104 06/04/2019 5:19 PM MANAGER CONSUMER Temperature 36.7 C (98 F) 06/04/2019 5:19 PM MANAGER CONSUMER Respiratory Rate 16 06/04/2019 5:19 PM MANAGER CONSUMER Oxygen Saturation 99% 06/04/2019 5:19 PM MANAGER CONSUMER Inhaled Oxygen Concentration - - Weight 107 kg (236 lb) 06/04/2019 5:19 PM MANAGER CONSUMER Height - - Body Mass Index 30.3 03/23/2019 7:16 PM MANAGER CONSUMER documented in this encounter Plan of Treatment Health [...] xxxxxxxxx 2017-Jessica HARVE[place] [id number] [place] [address] documented as of this encounter
--- OUTSIDE RECORDS SUMMARY | 2019-06-18 21:01 | XMS REPORT | Summary of Care ---
:1960 Author Organization [facility] Address [address] [place] [address] Care Team Providers Name Role Phone Kye Lee MD Primary Care Provider Reason for Visit Reason Comments Notification Forms Encounter Details Date Type Department Care Team Description 06/18/2019 Telephone [facility] Kye Lee MD Notification; Forms and Adult Primary Care- [address] [place] [address] Dr Muñoz [facility] [address] [place] [address] , [place] [address] [address] [place] [id number] [phone] Allergies No Known Allergiesdocumented as of this encounter (statuses as of 06/18/2019) Medications Medication Sig Dispensed Refills Start Date End Date Status gabapentin 100 mg Take 1 capsule by 90 capsule 0 08/08/2018 Active capsuleIndications: mouth 3 (three) Alcohol withdrawal times daily. syndrome with complication magnesium oxide 420 Take 400 mg by 60 tablet 0 08/08/2018 Active mg TabIndications: mouth 2 (two) Alcohol withdrawal times daily. syndrome with complication NIFEdipine ER 30 mg Take 1 tablet by 30 tablet 11 08/28/2018 Active SR tabletIndications: mouth daily. Essential hypertension tamsulosin 0.4 mg 24 Take 1 capsule by 30 capsule 11 08/28/2018 Active hr mouth daily. capsuleIndications: Essential hypertension lidocaine 5 % (700 Apply 1 Patch to 30 Patch 11 11/28/2018 Active mg/patch) area(s) daily. patchIndications: Alcohol withdrawal syndrome with complication HYDROcodone-acetamino TAKE BY MOUTH 1 0 02/10/2019 Active phen 7.5-325 mg per TABLET 2-3 TIMES A tablet DAY NEEDED LISINOPRIL 30 mg TAKE 1 [...] Alcohol withdrawal syndrome without complication VENLAFAXINE XR 37.5 TAKE 1 CAPSULE BY 30 capsule 2 06/06/2019 Active mg 24 hr MOUTH EVERY DAY capsuleIndications: WITH BREAKFAST Chronic pain due to trauma documented as of this encounter (statuses as of 06/18/2019) Active Problems Problem Noted Date Swelling 03/25/2019 Alcohol withdrawal 03/23/2019 Dental caries 10/11/2018 Chronic pain due to trauma 10/11/2018 Chronic hepatitis C without hepatic coma 10/11/2018 Chest pain 08/07/2018 Alcohol withdrawal syndrome with complication 08/06/2018 Essential hypertension 04/30/2018 Obesity due to excess calories with serious comorbidity 04/30/2018 documented as of this encounter (statuses as of 06/18/2019) Social History Tobacco Use Types Packs/Day Years [...] xxxxxxxxx 2017-Jessica [place] [id number] [place] [address] documented as of this encounter
[2019-06-18 21:52] LABS: Absolute Lymphocytes (CBC) 1.2 K/uL (0.7-4.9); Basophils % 0.7 % (0-1.3); Hematocrit 41.4 % (39.6-49.0); Lymphocytes % 12.9 % (15.3-44.8); MPV 10.9 fL (7.6-11.3)
[2019-06-18 21:55] LABS: Protime INR 0.99
[2019-06-18 22:07] LABS: Urine White Blood Cell Casts OK
[2019-06-18 22:08] LABS: Blood Morphology Comment NOT SEEN (NOT SEEN); Platelet Estimate DECR; Platelets, Giant PRESENT
[2019-06-18 22:21] LABS: ALT/SGPT 229 U/L (12-78); Albumin 3.8 g/dL (3.4-5.0); Alkaline Phosphatase 91 U/L (45-117); BUN Blood Urea Nitrogen 22 mg/dL (7-18); Bicarbonate 20 mmol/L (21-32); Bilirubin Direct 1.7 mg/dL (0-0.2); Glucose Level 99 mg/dL (74-106); Potassium 5.2 mmol/L (3.5-5.1); Protein, Total 8.7 g/dL (6.4-8.2); Sodium Level 136 mmol/L (136-145)
[2019-06-18 22:29] LABS: AST/SGOT 384 U/L (15-37)
[2019-06-18 22:53] LABS: Urine Blood 1+ (NEG); Urine Glucose NEGATIVE (NEG); Urine Protein 2+ (NEG); Urine Specific Gravity >1.030 (1.005-1.030); Urine pH 5.5 (5.0-7.0)
[2019-06-18 22:55] LABS: Urine Bacteria 20-50 /HPF (NONE SEEN); Urine Culture Reflex Order REFLEXED; Urine RBC <5 /HPF (NONE SEEN); Urine Sperm PRESENT (NONE SEEN)
[2019-06-18 22:59] LABS: Barbiturates NEGATIVE (NEGATIVE); Benzodiazepines NEGATIVE (NEGATIVE); Cocaine NEGATIVE (NEGATIVE); METHAMPHETAM POSITIVE (NEGATIVE); Methadone NEGATIVE (NEGATIVE); Opiates POSITIVE (NEGATIVE); Phencyclidine NEGATIVE (NEGATIVE); THC Cannibis POSITIVE (NEGATIVE)
[2019-06-18] MEDS ORDERED: NA CHLORIDE 0.9% 1,000 ML ONE (23:27)
[2019-06-18] MEDS ORDERED: LORazepam 2 MG/ML VIAL ONE (23:31)
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
[2019-06-18] MEDS ORDERED: MAGNE/ALUM HYDROXD 30 ML UCUP ONE (23:37)
[2019-06-18] MEDS ORDERED: LIDOCAINE VISCOUS 2% SOLN 15 ML UDC ONE (23:37)
--- NOTE | 2019-06-18 23:37 | EDPHYS ---
Physician Documentation [facility] Name: Jose Toussaint Age: 59 yrs Sex: Male : 1960 Arrival Date: 06/18/2019 Time: 20:58 Bed 17 Private MD: ED Physician Scott Michael HPI: 06/18 01:03 This 59 yrs old Male presents to ER via Ambulatory with complaints of tw4 Weakness, Hallucination. 01:03 The patient presents with decreased mental status. Onset: The symptoms/episode tw4 began/occurred today. Possible causes: drug use, amphetamines, benzodiazepines, marijuana. Current symptoms: In the emergency department the patient's symptoms are unchanged from the initial presentation. The patient has not experienced similar symptoms in the past. Historical: - Allergies: 06/17 21:20 No Known Allergies; ea - PMHx: 21:20 Hypertension; Chronic pain; ea - PSHx: 21:20 Unable to obtain; ea - Immunization history:: Adult Immunizations up to date. - Social history:: Smoking status: Patient reports the use of cigarette tobacco products, smokes one pack cigarettes per day. Patient uses alcohol, on a daily basis. street drugs, Methamphetamine (Meth). ROS: 06/18 01:03 Constitutional: Negative for fever, chills, and weight loss, Eyes: Negative for injury, tw4 pain, redness, and discharge, Cardiovascular: Negative for chest pain, palpitations, and edema, Respiratory: Negative for shortness of breath, cough, wheezing, and pleuritic chest pain, Abdomen/GI: Negative for abdominal pain, nausea, vomiting, diarrhea, and constipation, Back: Negative for injury and pain, MS/Extremity: Negative for injury and deformity, Skin: Negative for injury, rash, and discoloration. Neuro: Positive for altered mental status, Negative for dizziness, gait disturbance, headache, hearing loss, seizure activity, speech changes, syncope, near syncope, tinnitus, tremor. Exam: 01:03 Constitutional: This is a well developed, well nourished patient who is awake, alert, tw4 and in no acute distress. Head/Face: Normocephalic, atraumatic. Chest/axilla: Normal chest wall appearance and motion. Nontender with no deformity. No lesions are appreciated. Cardiovascular: Regular rate and rhythm with a normal S1 and S2. No gallops, murmurs, or rubs. Normal PMI, no JVD. No pulse deficits. Respiratory: Lungs have equal breath sounds bilaterally, clear to auscultation and percussion. No rales, rhonchi or wheezes noted. No increased work of breathing, no retractions or nasal flaring. Abdomen/GI: Soft, non-tender, with normal bowel sounds. No distension or tympany. No guarding or rebound. No evidence of tenderness throughout. Back: No spinal tenderness. No costovertebral tenderness. Full range of motion. MS/ Extremity: Pulses equal, no cyanosis. Neurovascular intact. Full, normal range of motion. 01:03 Neuro: Orientation: to person, Mentation: slow to respond, confused. Vital Signs: 06/17 21:13 BP 102 / 77; Pulse 120; Resp 20; Temp 97.6; Pulse Ox 100% on R/A; Weight 104.33 kg; ea Height 6 ft. 2 in. (187.96 cm); 22:46 BP 119 / 83; Pulse 109; Resp 18; Pulse Ox 99% on R/A; ea 06/18 02:34 BP 122 / 89; Pulse 109; Resp 18; Pulse Ox 99% on R/A; ea 06/17 21:13 Body Mass Index 29.53 (104.33 kg, 187.96 cm) ea MDM: 06/17 21:05 Patient medically screened. tw06/18 01:03 Differential Diagnosis: CVA, electrolyte abnormality, alcohol intoxication, tw4 hypoglycemia, intracranial bleed, overdose, pneumonia, volume depletion. Data reviewed: vital signs, nurses notes. Data interpreted: Pulse oximetry: Interpretation: normal. Counseling: I had a detailed discussion with the patient and/or guardian regarding: the historical points, exam findings, and any diagnostic results supporting the discharge/admit diagnosis, lab results, the need for outpatient follow up. Physician consultation: Julisa Cuello MD regarding admission, patient's condition, and will see patient in ED. 06/17 21:03 Order name: Acetaminophen; Complete Time: 23:12 tw4 06/17 23:12 Interpretation: ACETA < 2.0. tw4 06/17 21:03 Order name: Basic Metabolic Panel; Complete Time: 23:12 tw4 06/17 23:13 Interpretation: Normal except: K 5.2; CO2 20; BUN 22; GFR 21; CRE 3.06. tw4 06/17 21:03 Order name: CBC with Diff; Complete Time: 23:12 [facility] 06/17 23:13 Interpretation: Normal except: RBC 4.00; MCV 103.5; MCH 35.1; PLT 128; LYM% 12.9; YOBANY% tw4 75.7. 06/17 21:03 Order name: ETOH Level; Complete Time: 23:12 [facility] 06/17 23:14 Interpretation: Normal except: ETOH < 10. tw4 06/17 21:03 Order name: Hepatic Function; Complete Time: 23:12 [facility] 06/17 23:13 Interpretation: Normal except: AST 384; ALT 229; BILIT 3.0; BILID 1.7; TP 8.7; GLOB tw4 4.9; A/G 0.8. 06/17 21:03 Order name: PT-INR; Complete Time: 23:12 [facility] 06/17 21:03 Order name: Ptt, Activated; Complete Time: 23:12 [facility] 06/17 21:03 Order name: Salicylate; Complete Time: 23:12 [facility] 06/17 23:13 Interpretation: Within normal limits: YADY < 1.7. 06/17 21:03 Order name: Urine Drug Screen; Complete Time: 23:12 [facility] 06/17 23:14 Interpretation: Normal except: METHAMPHETAMINE POSITIVE; THC POSITIVE; OPI POSITIVE. 06/17 21:06 Order name: Urine Microscopic Only; Complete Time: 23:12 [facility] 06/17 23:14 Interpretation: Normal except: UBACT 20-50; SPERM PRESENT. 06/17 22:02 Order name: CBC Smear Scan; Complete Time: 23:12 [facility] 06/17 22:35 Order name: Urine Dipstick--Ancillary (enter results); Complete Time: 23:12 [facility] 06/17 23:14 Interpretation: Normal except: USPGR >1.030; UKET 1+; UBLD 1+; UPROT 2+. [facility] 06/17 22:57 Order name: Urine Culture [facility] 06/17 23:46 Order name: Creatine Phosphokinase; Complete Time: 06:27 EDKS 06/18 06:27 Interpretation: Normal except: CPK 595. [facility] 06/17 21:03 Order name: CT Head Brain wo Cont tw4 06/17 23:46 Order name: Troponin I; Complete Time: 06:27 EDMS 06/17 23:46 Order name: UR CREAT EDMS 06/17 23:46 Order name: UR SODIUM EDMS 06/17 23:46 Order name: Comprehensive Metabolic Panel EDMS 06/17 23:46 Order name: Comprehensive Metabolic Panel; Complete Time: 06:27 EDMS 06/17 23:46 Order name: Magnesium EDMS 06/17 23:46 Order name: Magnesium; Complete Time: 06:27 EDMS 06/17 23:46 Order name: Magnesium EDMS 06/17 23:46 Order name: Magnesium EDMS 06/17 23:47 Order name: Troponin I EDMS 06/17 23:47 Order name: Troponin I; Complete Time: 06:27 EDMS 06/17 23:47 Order name: Troponin I EDKS 06/17 23:47 Order name: Troponin I EDMS 06/18 06:16 Order name: CBC with Automated Diff; Complete Time: 06:27 EDKS 06/18 12:38 Order name: US EDKS 06/17 21:03 Order name: EKG; Complete Time: 21:03 tw4 06/17 21:03 Order name: EKG - Nurse/Tech; Complete Time: 21:57 tw4 06/17 21:03 Order name: IV Saline Lock; Complete Time: 21:57 tw4 06/17 21:03 Order name: Labs collected and sent; Complete Time: 21:57 tw4 06/17 21:03 Order name: Urine Dipstick-Ancillary (obtain specimen); Complete Time: 22:46 tw4 06/17 23:46 Order name: CONS Physician Consult EDKS 06/17 23:48 Order name: CONS Pharmacy Consult EDKS 06/17 23:48 Order name: Full Liquid EDKS 06/18 08:11 Order name: Diet Regular; Complete Time: 08:12 dh3 EC:28 Rate is 124 beats/min. Rhythm is regular. QRS [place] is Normal. DC interval is normal. tw4 QRS interval is normal. QT interval is normal. No Q waves. T waves are Normal. No ST changes noted. Clinical impression: Sinus tachycardia. Interpreted by me. Reviewed by me. Administered Medications: 06/17 23:29 Drug: Ativan 1 mg Route: IVP; Site: right antecubital; ea 06/18 00:00 Follow up: Response: No adverse reaction christine 06/17 23:29 Drug: NS 0.9% 1000 ml Route: IV; Rate: 1 bolus; Site: right antecubital; ea 06/18 02:35 Follow up: Response: No adverse reaction; IV Status: Completed infusion; IV Intake: ea 1000ml 06/17 23:44 Drug: GI Cocktail without - (Maalox Suspension 30 ml, Lidocaine Liquid 2 % 15 ea ml) Route: PO; 06/18 02:35 Follow up: Response: No adverse reaction ea Disposition: 06/18/19 23:35 Hospitalization ordered by Julisa Cuello for Inpatient Admission. Preliminary diagnosis are Alcohol dependence with withdrawal, Alcohol abuse, Adverse effect of amphetamines. - Bed requested for Intensive Care Unit. - Status is Inpatient Admission. ca1 - Condition is Stable. - Problem is an ongoing problem. - Symptoms have worsened. Signatures: Dispatcher [employer] EDMS Colleen Waddell RN RN tl1 Haylie Charles RN RN ea Aguilar, Jose RN RN ja1 Scott Michael MD MD tw4 Sofy Thapa RN RN ca1 Corrections: (The following items were deleted from the chart) 00:23 03 23:35 Hospitalization Ordered by Julisa Cuello MD for Inpatient Admission. tl1 Preliminary diagnosis is Alcohol dependence with withdrawal; Alcohol abuse; Adverse effect of amphetamines. Bed requested for Telemetry/MedSurg (Inpatient). Status is Inpatient Admission. Condition is Stable. Problem is an ongoing problem. Symptoms have worsened. 4 06/18 00:23 00:23 06/18/2019 23:35 Hospitalization Ordered by Julisa Cuello MD for Inpatient tl1 Admission. Preliminary diagnosis is Alcohol dependence with withdrawal; Alcohol abuse; Adverse effect of amphetamines. Bed requested for Intensive Care Unit. Status is Inpatient Admission. Condition is Stable. Problem is an ongoing problem. Symptoms have worsened. tl1 16:03 00:23 06/18/2019 23:35 Hospitalization Ordered by Julisa Cuello MD for Inpatient ja1 Admission. Preliminary diagnosis is Alcohol dependence with withdrawal; Alcohol abuse; Adverse effect of amphetamines. Bed requested for [facility]. Status is Inpatient Admission. Condition is Stable. Problem is an ongoing problem. Symptoms have worsened. tl1 17:28 16:03 06/18/2019 23:35 Hospitalization Ordered by Julisa Cuello MD for Inpatient ca1 Admission. Preliminary diagnosis is Alcohol dependence with withdrawal; Alcohol abuse; Adverse effect of amphetamines. Bed requested for Intensive Care Unit. Status is Inpatient Admission. Condition is Stable. Problem is an ongoing problem. Symptoms have worsened. ja1
[2019-06-18] MEDS ORDERED: ALBUTEROL 2.5 MG/3 ML NEB SOL NEB PRN (23:38)
[2019-06-18] MEDS: D5 0.9 NS 1,000 ML IV SCH (23:45)
[2019-06-19 00:10] LABS: Creatine Phosphokinase 595 U/L (39-308); Troponin I < 0.02 ng/mL (0.0-0.045)
[2019-06-19 00:14] LABS: Magnesium 1.1 mg/dL (1.8-2.4)
[2019-06-19] MEDS ORDERED: D5 0.9 NS 1,000 ML IV ONE ×2 (01:58→07:52)
[2019-06-19 02:50] VITALS: BMI 29.5
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
[2019-06-19] MEDS: LORazepam 2 MG/ML VIAL IV PRN ×5 (05:01→23:22)
[2019-06-19] MEDS ORDERED: LORazepam 2 MG/ML VIAL ONE ×4 (05:01→15:44)
[2019-06-19] MEDS ORDERED: ONDANSETRON 4 MG/2 ML VIAL ONE (05:22)
[2019-06-19] MEDS ORDERED: MORPHINE 2 MG/ML SYR ONE (05:22)
[2019-06-19] MEDS: MORPHINE 2 MG/ML SYR IV PRN (05:23)
[2019-06-19] MEDS: ONDANSETRON 4 MG/2 ML VIAL IV PRN (05:24)
[2019-06-19 06:05] LABS: Absolute Lymphocytes (CBC) 2.2 K/uL (0.7-4.9); Basophils % 0.5 % (0-1.3); Hematocrit 35.5 % (39.6-49.0); Lymphocytes % 25.3 % (15.3-44.8); MPV 11.3 fL (7.6-11.3); RBC Red Blood Cell Count 3.47 M/uL (4.33-5.43)
[2019-06-19 06:09] LABS: ALT/SGPT 172 U/L (12-78); AST/SGOT 282 U/L (15-37); Alkaline Phosphatase 72 U/L (45-117); BUN Blood Urea Nitrogen 22 mg/dL (7-18); Bicarbonate 24 mmol/L (21-32); Bilirubin Total 2.4 mg/dL (0.2-1.0); Glucose Level 102 mg/dL (74-106); Potassium 4.2 mmol/L (3.5-5.1); Protein, Total 7.3 g/dL (6.4-8.2); Sodium Level 136 mmol/L (136-145); Troponin I < 0.02 ng/mL (0.0-0.045)
[2019-06-19] MEDS: D5 0.9 NS 1,000 ML IV SCH (07:45)
[2019-06-19] MEDS ORDERED: NICOTINE 21 MG/PAT TD ONE (07:51)
[2019-06-19] MEDS ORDERED: ENOXAPARIN 40 MG/0.4 ML SQ ONE (07:52)
[2019-06-19] MEDS ORDERED: PNEUMOCOCCAL VACCINE 0.5 ML IMVAC ONE (08:00)
[2019-06-19] MEDS ORDERED: INFLUENZA VACCINE (for 3y+) 0.5 ML DOSE IMVAC ONE ×2 (08:00→09:15)
[2019-06-19] MEDS: FAMOTIDINE 20 MG TAB PO SCH ×2 (09:00→20:11)
[2019-06-19] MEDS: ENOXAPARIN 40 MG/0.4 ML SQ SCH (09:00)
[2019-06-19] MEDS: NICOTINE 21 MG/PAT TD SCH (09:00)
[2019-06-19] MEDS: FOLIC ACID 1 MG, MULTIVITAMINS INJ 10 ML, THIAMINE HCL 100 MG in NA CHLORIDE 0.9% 1,000 ML IV SCH (09:00)
[2019-06-19] MEDS ORDERED: FAMOTIDINE 20 MG TAB ONE (09:14)
[2019-06-19] MEDS ORDERED: FOLIC ACID 5 MG/ML VIAL ONE (09:19)
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
[2019-06-19] MEDS ORDERED: HALOPERIDOL LACT 5 MG/ML INJ IV ONE (10:50)
[2019-06-19] MEDS ORDERED: Magnesium Sulfate 2gm IVPB 2 G/50 ML BAG IV ONE ×2 (11:13→11:48)
--- NOTE | 2019-06-19 11:38 | EKG ---
Test Date: 2019-06-18 Test Time: 21:49:30 Environmental Safety Specialist: ELIZABETH MEASUREMENT RESULTS: Intervals: Rate: 124 CT: 182 QRSD: 70 QT: 280 QTc: 402 Cleves: P: 63 CT: 182 QRS: -25 T: 40 INTERPRETIVE STATEMENTS: Sinus tachycardia Otherwise normal ECG Compared to ECG 03/06/2019 07:56:03 No significant changes Electronically Signed On 06-19-19 11:36:34 DYNAMOMETER TESTER ENGINE by Adalberto Nicole
[2019-06-19] MEDS ORDERED: HALOPERIDOL LACT 5 MG/ML INJ ONE (11:48)
[2019-06-19] MEDS ORDERED: NA CHLORIDE 0.9% 1,000 ML ONE ×2 (11:48→15:51)
[2019-06-19] MEDS: NA CHLORIDE 0.9% 1,000 ML IV SCH ×2 (11:53→23:14)
--- NOTE | 2019-06-19 12:19 | RAD REPORT ---
EXAM DESCRIPTION: US - Renal Ultrasound-Complete - 06/19/2019 12:10 pm CLINICAL HISTORY: TEX COMPARISON: No comparisons FINDINGS: The right kidney measures 11.3 x 5.6 x 5.0 cm. The left kidney measures 10.0 x 4.7 x 4.7 cm. Renal cortical thickness and echogenicity are normal. No hydronephrosis or suspicious renal mass. No bladder wall thickening or mass. No intraluminal stone or mass. IMPRESSION: No hydronephrosis or suspicious renal mass. No other significant findings.
--- NOTE | 2019-06-19 17:08 | CON ---
Date of Consultation: 06/19/2019 Reason For Consultation: Elevated BUN and creatinine, fluid management, electrolyte imbalance. History Of Present Illness: All the information has been obtained from the record as the patient alt ered mental status. This is a 59-year-old gentleman with significant past medical history of chronic pain syndrome secondary to spinal injury, alcohol abuse, drug abuse, patient was approached by the song garcia because of altered mental status and jerking movement. Upon arrival to the hospital, the patie nt found to have an altered mental status, found to have elevation in BUN and creatinine. For that r kimber, we have been consulted. Patient's apparently urine drug screen found to be positive for amphe tamine. According to the family, denied taking any nonsteroidal, no IV contrast. Reviewing the [address] for the patient, patient's creatinine upon arrival was 3, GFR of 21. Back in February 2019, creat inine 1.4 with GFR of 52. Past Medical History: 1.Hypertension. 2.Alcohol abuse. 3.Cocaine use. Past Surgical History: Include cervical and rib ORIF, tonsillectomy, abdominal surgery repair. Social History: Active smoker. Active alcohol. Active drug abuse. Allergies: NO KNOWN DRUGS ALLERGY. Home Medications: None obtainable. Review of Systems: None obtainable. Physical Examination: Vital Signs: When I saw the patient, patient jittering, blood pressure 123/92; pulse of 130, regular ; afebrile. Chest: Clear to auscultation. Heart: S1, S2. Regular. Tachycardic. Abdomen: Soft, nontender. Extremities: No edema. Neurologic: Active tremor. Moving 4 extremities without any focalities. Pupil reactive. Laboratory Data: Sodium 136, potassium 4.2, bicarb 22, BUN 24, creatinine 2, calcium 8.4, magnesium 1.1. AST 384, ALT 229. CK 595. Back in February, creatinine 1.4, GFR of 52. WBC 8.8, H and H of 1 2/35.5, platelet 102. Upon arrival, H and H of 14.1/41.4. Urinalysis: Specific gravity above 1.030 , wbc's less than 5. Urine drug screen was positive for amphetamine, opioid, and THC. Current Medications: Patient was started on IV hydration, banana bag. Ativan, folic acid. Ultrasound 11.06/23. Assessment And Plan: Acute kidney injury secondary to prerenal/mild rhabdomyolysis secondary to poss ible alcohol withdrawals, polysubstance use on the recovery phase, currently looks still on the s mayra. I going to go ahead and bolus the patient with another liter of normal saline and we will follo w up the patient. Increase IV fluid to 125. Continue banana bag. 1.Rhabdomyolysis. Continue aggressive hydration. 2.Hyperkalemia, resolved. 3.Hypomagnesemia. We will supplement. 4.Altered mental status, alcohol intoxication/withdrawal. Multidrug abuse. Follow up with the [facility]. Thank you Dr. Monroe for allowing us to participate in the care of your patient. ROSS/YESSICA Voice ID: [id number] Report ID: [id number]
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
[2019-06-19 18:50] LABS: Urine Protein/Creatinine Ratio 0.29 ratio (<0.15)
--- NOTE | 2019-06-19 19:17 | PN ---
Date of Progress Note: 06/19/2019 Subjective: Patient seen and examined. Chart reviewed and case discussed with RN. Patient is still very much hallucinating, having withdrawal effects from alcohol, agitated, confused. No family in town. Patient has some nausea. Home Medications: List reviewed. Physical Examination: Vital Signs: blood pressure 123/92, respirations 15, O2 is 97% on room air. General: Awake, alert, confused, hallucinating. CV: S1, S2. Sinus tachycardia. Peripheral pulses present. Respiratory: Moving air well bilaterally. No wheezing or stridor. Gastrointestinal: Abdomen is soft, nontender, nondistended. Positive bowel sounds. Extremities: No clubbing, cyanosis, or edema. Neuro: Moves all 4 extremities, opens eyes spontaneously, conversing, but does not follow commands. Laboratory Data: Sodium 136, potassium 4.2, chloride 103, CO2 24, BUN 22, creatinine 2.07, glucose is 102, calcium 8.4. Magnesium was 1.1, repeat is pending. AST 282, ALT 172. Troponin less than 0.02 x2. CK level is 595. WBC 8.8, H and H 12 and 35.5, platelets 102, neutrophils 64%. UDS positive for opiates, amphetamines, TCH. Renal ultrasound shows no hydronephrosis or suspicious renal mass. Head CT scan shows no acute intracranial abnormality; deformity of the right medial orbital wall from previous blowout fracture, stable; mild mucosal thickening within the right frontal air cell, which is stable from prior exam. Assessment: 59-year-old male with: 1. Acute alcohol withdrawal. We will increase dose of Ativan to 4 mg and add Haldol for hallucinations with Benadryl. We will continue to monitor closely. 2. Multisubstance abuse with amphetamine. We will financial aid counselor once patient is more alert. 3. Elevated liver enzymes secondary to toxic hepatic injury from alcohol. 4. Acute kidney injury secondary to rhabdomyolysis, methamphetamine use. We will continue with IV fluids. Appreciate Nephrology input. Renal ultrasound is negative. We will continue to monitor. Improving from yesterday. 5. Acute rhabdomyolysis, nontraumatic. We will continue to monitor and continue IV fluids. 6. Hypomagnesemia. We will replace and monitor. 7. Hyperbilirubinemia, likely due to liver disease from alcoholism. 8. Conjunctivitis in the right eye. We will start on drops. 9. Deep vein thrombosis prophylaxis. SCDs. 10. Nicotine dependence with cigarette smoking. We will financial aid counselor once more alert. Plan: Continue treatment. monitor using CIWA. currently in ER hold no ICU beds. We will attempt transfer to [place] for medical and psychiatric treatment. Patient will benefit from rehab. /YESSICA Voice ID: [id number] Report ID: [id number] DIAMOND
[2019-06-20] MEDS ORDERED: Magnesium Sulfate 2gm IVPB 2 G/50 ML BAG IV ONE (00:23)
[2019-06-20] MEDS: HALOPERIDOL LACT 5 MG/ML INJ IV PRN ×2 (01:28→17:37)
[2019-06-20] MEDS ORDERED: WATER FOR INJ,STERILE 10 ML IM PRN ×2 (01:48→17:39)
[2019-06-20] MEDS ORDERED: ZIPRASIDONE MESYLA 20 MG/VIAL IM ONE ×2 (01:48→17:49)
[2019-06-20] MEDS ORDERED: NA CHLORIDE 0.9% 1,000 ML ONE (05:58)
[2019-06-20] MEDS: NA CHLORIDE 0.9% 1,000 ML IV SCH ×3 (06:03→20:06)
[2019-06-20 06:15] LABS: Albumin 2.8 g/dL (3.4-5.0); BUN Blood Urea Nitrogen 14 mg/dL (7-18); Bicarbonate 24 mmol/L (21-32); Glucose Level 86 mg/dL (74-106); Magnesium 2.2 mg/dL (1.8-2.4); Sodium Level 138 mmol/L (136-145); Troponin I < 0.02 ng/mL (0.0-0.045)
[2019-06-20] MEDS: LORazepam 2 MG/ML VIAL IV PRN ×2 (07:40→16:26)
[2019-06-20] MEDS: NICOTINE 21 MG/PAT TD SCH (07:56)
[2019-06-20] MEDS: FAMOTIDINE 20 MG TAB PO SCH (07:56)
[2019-06-20] MEDS: ENOXAPARIN 40 MG/0.4 ML SQ SCH (07:56)
[2019-06-20] MEDS: DIPHENHYDRAMINE 50 MG/ML VIAL IV PRN ×3 (07:56→23:55)
[2019-06-20] MEDS: FOLIC ACID 1 MG, MULTIVITAMINS INJ 10 ML, THIAMINE HCL 100 MG in NA CHLORIDE 0.9% 1,000 ML IV SCH (09:00)
--- NOTE | 2019-06-20 10:28 | P.PN ---
Subjective Date of Service: 06/20/19 Subjective a 59 y/o man with listed PMhx, presented with AMS Utox +ve Cr 3.0 in ER today was sleeping Cr down 1.0 , will reduce IVF rate will check Phos cont current management Past Medical History: 1. Hypertension. 2. Alcohol abuse. 3. Cocaine use. Past Surgical History: Include cervical and rib ORIF, tonsillectomy, abdominal surgery repair. Social History: Active smoker. Active alcohol. Active drug abuse. Allergies: NO KNOWN DRUGS ALLERGY. Home Medications: None obtainable. general: Sleeping, NAD Neck; Supple, No elevated JVD hear: RRR, normal S1,2 no murmur or rub Chest: CTAB, no rlaes or wheezes Abdomen: Soft , Nt Extremities No edema or ulcer A/P TEX resolved due to prerenal azotemia US: no hydro will reduce IVF rate Hypomagnesemia replace PRN polysubstance abuse cont supportive care monitor for withdrawal Physical Examination - Vital Signs Temperature: 97.3 F Blood Pressure: 141/99 Pulse: 82 Respirations: 11 Pulse Ox (%): 94
[2019-06-20] MEDS: chlordiazePOXIDE HCl 25 MG CAP PO SCH ×3 (11:00→23:55)
[2019-06-20] MEDS: HYDRALAZINE HCL 20 MG/ML VIAL IV PRN ×2 (12:38→21:11)
--- NOTE | 2019-06-20 14:51 | PN ---
Date of Progress Note: 06/20/2019 Subjective: Patient seen and examined. Chart reviewed and case discussed with RN. Patient overall seems to be doing a little bit better, required Haldol and Ativan overnight x2. Medications: List reviewed. Physical Examination: Vital Signs: Temperature 97.3, heart rate 95, blood pressure 135/92, respirations 15, O2 of 94% on 2 L via nasal cannula. General: Asleep, but arousable, still very much confused, hallucinating. Patient not combative. CV: S1, S2. Regular rate and rhythm. Peripheral pulses weak. Respiratory: Moving air well bilaterally. No wheezing or stridor. No use of accessory muscles. Gastrointestinal: Abdomen is soft, nontender, nondistended. Positive bowel sounds. No guarding or rigidity. Extremities: No clubbing, cyanosis, or edema. Neurologic: Nonfocal. Laboratory Data: Sodium 138, potassium 4, chloride 109, CO2 of 24, BUN 14, creatinine 1.09, glucose 86, calcium 8.2, phosphorus 2, magnesium 2.2. Troponin less than 0.02, albumin 2.8, TSH 2.14. Urine culture growing out mixed billy. Assessment And Plan: A 59-year-old male with; 1. Acute alcohol withdrawal. We will start on Librium taper. Ativan p.r.n. for withdrawal symptoms. Patient is tachycardic and has elevated blood pressure , currently hallucinating. 2. Polysubstance abuse with amphetamine, THC 3. Elevated liver enzymes secondary to hepatic injury from alcohol. Cont to monitor. 4. Acute kidney injury secondary to rhabdomyolysis and methamphetamine use, improving. Appreciate Nephrology input. We will adjust IV fluids. Continue to monitor and avoid NSAIDs. 5. Acute rhabdomyolysis, nontraumatic. Monitor CK level and adjust IV fluids. 6. Hypomagnesemia, corrected. We will continue to monitor. 7. Hypophosphatemia. We will replace and monitor. 8. Conjunctivitis. Start on erythromycin ointment. 9. Nicotine dependence. Cigarette smoking uncomplicated. 10. Deep venous thrombosis prophylaxis. SCDs. Patient was denied transfer to [facility] due to his acute detox. Psych was consulted yesterday. Plan start on Librium at detox. SA/MODL Voice ID: [id number] Report ID: [id number] MTDD
[2019-06-20] MEDS ORDERED: ALBUTEROL 2.5 MG/3 ML NEB SOL NEB PRN (16:00)
[2019-06-20] MEDS ORDERED: ZIPRASIDONE MESYLA 20 MG/VIAL IM PRN (17:39)
[2019-06-20] MEDS ORDERED: WATER FOR INJ,STERILE 10 ML ONE (17:50)
[2019-06-20] MEDS: MORPHINE 2 MG/ML SYR IV PRN (20:06)
[2019-06-20] MEDS: ONDANSETRON 4 MG/2 ML VIAL IV PRN (20:07)
[2019-06-21] MEDS: HALOPERIDOL LACT 5 MG/ML INJ IV PRN (00:58)
[2019-06-21] MEDS: MORPHINE 2 MG/ML SYR IV PRN ×2 (01:52→22:08)
[2019-06-21] MEDS: ONDANSETRON 4 MG/2 ML VIAL IV PRN ×2 (03:36→22:08)
[2019-06-21 05:16] LABS: Absolute Lymphocytes (CBC) 1.7 K/uL (0.7-4.9); Basophils % 0.7 % (0-1.3); Lymphocytes % 21.2 % (15.3-44.8); MPV 10.9 fL (7.6-11.3); RBC Red Blood Cell Count 3.39 M/uL (4.33-5.43)
[2019-06-21 05:43] LABS: ALT/SGPT 98 U/L (12-78); AST/SGOT 116 U/L (15-37); Albumin 2.6 g/dL (3.4-5.0); Alkaline Phosphatase 68 U/L (45-117); BUN Blood Urea Nitrogen 9 mg/dL (7-18); Bicarbonate 25 mmol/L (21-32); Bilirubin Total 1.2 mg/dL (0.2-1.0); Glucose Level 90 mg/dL (74-106); Magnesium 1.5 mg/dL (1.8-2.4); Potassium 3.9 mmol/L (3.5-5.1); Protein, Total 6.5 g/dL (6.4-8.2); Sodium Level 137 mmol/L (136-145); Troponin I < 0.02 ng/mL (0.0-0.045)
[2019-06-21] MEDS: chlordiazePOXIDE HCl 25 MG CAP PO SCH ×2 (07:43→22:02)
[2019-06-21] MEDS ORDERED: Magnesium Sulfate 2gm IVPB 2 G/50 ML BAG IV ONE ×2 (08:38→13:39)
[2019-06-21] MEDS ORDERED: POTASSIUM CL SA 10 MEQ TAB PO ONE (08:39)
[2019-06-21] MEDS: FOLIC ACID 1 MG, MULTIVITAMINS INJ 10 ML, THIAMINE HCL 100 MG in NA CHLORIDE 0.9% 1,000 ML IV SCH (10:14)
[2019-06-21] MEDS: ENOXAPARIN 40 MG/0.4 ML SQ SCH (10:14)
[2019-06-21] MEDS: NIFEDIPINE XL 30 MG TABLET PO SCH (10:15)
[2019-06-21] MEDS: NICOTINE 21 MG/PAT TD SCH (10:15)
[2019-06-21] MEDS: lisinopriL 10 MG TAB PO SCH (10:15)
[2019-06-21] MEDS: VENLAFAXINE HCL XR 37.5MG CAP PO SCH (10:16)
[2019-06-21] MEDS: FUROSEMIDE 20 MG TABLET PO SCH (10:16)
[2019-06-21] MEDS: PANTOPRAZOLE 40MG TABLET PO SCH (10:17)
[2019-06-21] MEDS ORDERED: LORazepam 2 MG/ML VIAL IV PRN (11:20)
--- NOTE | 2019-06-21 14:21 | PN ---
Date of Progress Note: 06/21/2019 Subjective: Patient seen and examined. Chart reviewed and case discussed with RN. Patient lg chapman alert. Continues to be somnolent due to medications, but able to tell me that he is hurting due to previous rib fracture 3 years ago, asking for pain medications. Medication List: Reviewed. Physical Examination: Vital Signs: Temperature 98, heart rate 109, blood pressure 153/97, respirations 17, O2 94% on room air. General: Asleep, but arousable. Oriented to time and place. Ill-appearing male, appears older than stated age. CV: S1, S2. Regular rate and rhythm. Peripheral pulses present. Respiratory: Moving air well bilaterally. No wheezing or stridor. Gastrointestinal: Abdomen is soft, nontender, nondistended. Positive bowel sounds. Extremities: No clubbing, cyanosis, or edema. Neurologic: Nonfocal. Laboratory Data: Sodium 137, potassium 3.9, chloride 108, CO2 of 25, BUN 9, creatinine 0.92, glucose 90, calcium 8, phosphorus 3, magnesium 1.5, total bilirubin 1.2, AST 116, ALT 98, albumin 2.6. WBC is 8.1, H and H 12/35, platelets 100. Urine culture growing out mixed billy. Assessment: A 59-year-old male with; 1.Acute alcohol withdrawal. We will adjust Librium taper. We will switch to 25 b.i.d. and continue tapering as needed. Continue Ativan p.r.n. 1 mg q.2 hours. Hallucinations have improved, still anant ewhat tachycardic and hypertensive. 2.Polysubstance abuse with amphetamines and THC counseled. 3.Elevated liver enzymes secondary to hepatic injury from alcohol intoxication. LFTs are trending d own. We will continue to monitor. 4.Acute kidney injury secondary to rhabdomyolysis and methamphetamine abuse, resolved. Appreciate N ephrology input. We will adjust IV fluids. Continue to monitor and no NSAIDs. 5.Acute rhabdomyolysis, nontraumatic resolved. Continue IV fluids. 6.Hypomagnesemia. We will replace and monitor. 7.Acute conjunctivitis in the right eye. Continue with erythromycin ointment. 8.Nicotine dependence with cigarette smoking continuous, counseled. 9.Chronic pain syndrome. Patient has had multiple traumatic injuries. Currently, on morphine. 10.Deep venous thrombosis prophylaxis, SCDs. Plan: Continue Librium taper. [facility]tic[facility] in the next 24 to 48 hours. /YESSICA Voice ID: [id number] Report ID: [id number]
--- NOTE | 2019-06-21 17:47 | RAD REPORT ---
EXAM DESCRIPTION: RAD - Chest Single View - 06/21/2019 5:14 pm CLINICAL HISTORY: Device placement PICC line placement IMPRESSION: PICC line with its tip in the distal superior vena cava
[2019-06-21] MEDS: NA CHLORIDE 0.9% 1,000 ML IV SCH (20:20)
[2019-06-22] MEDS: NA CHLORIDE 0.9% 1,000 ML IV SCH (00:32)
--- NOTE | 2019-06-22 01:50 | PN ---
Date of Progress Note: 06/21/2019 History: The patient was admitted with alcohol intoxication, multidrug use. Had acute kidney injury secondary to rhabdomyolysis and poor perfusion ATN, low blood pressure. Patient on recovery. Physical Examination: General: The patient is awake, follow simple command. Vital Signs: Blood pressure 100/59, afebrile. Chest: Clear to auscultation. Heart: S1, S2. Tachy. Abdomen: Soft, nontender. Extremity: Trace edema. Laboratory Data: H and H of . Sodium 137, potassium 3.9, bicarb 25, BUN 9 , creatinine 0.9, calcium 8, magnesium 1.5. Current Medications: The patient is on include, lisinopril, nifedipine, , Lasix 20 daily pantoprazole, Zofran. Assessment And Plan: 1. Acute kidney injury secondary to prerenal, recovered, resolved. We will continue to monitor. 2. Hypertension, controlled optimal. Continue current medication. 3. Alcohol intoxication. Follow up with the primary. 4. Rhabdomyolysis. Continue hydration. 5. Hypomagnesemia, we will supplement. SADAF Voice ID: [id number] Report ID: [id number] DIAMOND
[2019-06-22 05:23] LABS: Absolute Lymphocytes (CBC) 1.5 K/uL (0.7-4.9); Basophils % 0.6 % (0-1.3); Hematocrit 34.9 % (39.6-49.0); Lymphocytes % 28.3 % (15.3-44.8); MPV 10.9 fL (7.6-11.3); RBC Red Blood Cell Count 3.41 M/uL (4.33-5.43)
[2019-06-22 05:38] LABS: Albumin 2.5 g/dL (3.4-5.0); Magnesium 1.5 mg/dL (1.8-2.4); Phosphorus 3.6 mg/dL (2.5-4.9); Potassium 3.1 mmol/L (3.5-5.1)
[2019-06-22] MEDS ORDERED: POTASSIUM CL SA 10 MEQ TAB PO ONE (06:05)
[2019-06-22] MEDS ORDERED: Magnesium Sulfate 2gm IVPB 2 G/50 ML BAG IV ONE (06:05)
[2019-06-22] MEDS: chlordiazePOXIDE HCl 25 MG CAP PO SCH (09:00)
[2019-06-22] MEDS: NICOTINE 21 MG/PAT TD SCH (09:35)
[2019-06-22] MEDS: ENOXAPARIN 40 MG/0.4 ML SQ SCH (09:35)
[2019-06-22] MEDS: lisinopriL 10 MG TAB PO SCH (09:36)
[2019-06-22] MEDS: FOLIC ACID 1 MG, MULTIVITAMINS INJ 10 ML, THIAMINE HCL 100 MG in NA CHLORIDE 0.9% 1,000 ML IV SCH (09:37)
[2019-06-22] MEDS: FUROSEMIDE 20 MG TABLET PO SCH (09:37)
[2019-06-22] MEDS: ERYTHROMYCIN 1 APPL/1 GM TUBE RIGHT EYE SCH ×4 (09:37→22:32)
[2019-06-22] MEDS: PANTOPRAZOLE 40MG TABLET PO SCH (09:37)
[2019-06-22] MEDS: chlordiazePOXIDE HCl 5 MG CAP PO SCH ×2 (09:46→21:49)
[2019-06-22] MEDS: NIFEDIPINE XL 30 MG TABLET PO SCH (09:58)
[2019-06-22] MEDS: VENLAFAXINE HCL XR 37.5MG CAP PO SCH (10:16)
[2019-06-22 13:16] LABS: Magnesium 1.9 mg/dL (1.8-2.4)
[2019-06-22] MEDS: HYDROCODONE/APAP 7.5/325 MG TAB PO PRN ×2 (13:35→21:53)
[2019-06-22] MEDS ORDERED: MAGNESIUM SULFATE 1 gm IVPB 1 GM/100 ML BAG IV ONE (14:00)
[2019-06-22] MEDS ORDERED: POTASSIUM CL 40 MEQ in NA CHLORIDE 0.9% 500 ML IV ONE (14:00)
--- NOTE | 2019-06-22 18:41 | PN ---
Date of Progress Note: 06/22/2019 Subjective: Patient was admitted with altered mental status, acute kidney injury secondary to preren al alcohol intoxication. Physical Examination: Vital Signs: Blood pressure 159/100, pulse of 104. Chest: Clear to auscultation. Heart: S1, S2. Regular. Tachy. Abdomen: Soft, nontender. Extremities: No edema. Laboratory Data: WBC 5.4, H and H 11.9/34.9, platelets 103. Sodium 136, potassium 3.1, bicarb 26, B UN 8, creatinine 0.8, calcium 8.1, phosphorus 3.6, magnesium 1.5, albumin 2.5. Current Medications: The patient is on include; breathing treatment, nicotine, lisinopril 30 daily. Geodon. Lasix, pantoprazole. Assessment And Plan: 1.Acute kidney injury secondary to prerenal, recovered, resolved. 2.Hypokalemia, hypomagnesemia. We will supplement. 3.Hypertension giving the alcoholic. We will start the patient on beta-meghan and we will follow u p the patient. I agree with MACARENA inhibitor for the time being. 4.Alcoholic intoxication, multidrug abuse as by primary. ROSS/AGNESL Voice ID: [id number] Report ID: [id number]
--- NOTE | 2019-06-22 20:32 | PN ---
Date of Progress Note: 06/22/2019 Subjective: Patient seen and examined. Chart reviewed and case discussed with RN. Patient lg chapman awake and alert this morning, is complaining of pain. Medications: List reviewed. Physical Examination: Vital Signs: Temperature 98.5, heart rate 93, blood pressure 114/77, respirations 19, O2 saturation 93% on room air. General: Awake, alert, oriented x2, in some mild distress, ill-appearing male, appears older than st ated age. CV: S1, S2. Regular rate and rhythm. Peripheral pulses present. Respiratory: Moving air well bilaterally. No wheezing or stridor. Gastrointestinal: Abdomen is soft, nontender, nondistended. Positive bowel sounds. Extremities: No clubbing, cyanosis, or edema. Neurologic: Nonfocal. Laboratory Data: Sodium 136, potassium 3.1, chloride 104, CO2 of 26, BUN 8, creatinine 0.89, glucose 117, calcium 8.1, phosphorus 3.6, magnesium 1.5, albumin 2.5. WBC 5.4, H and H 11.9 and 34.9, plate lets 103, neutrophils 54%. Assessment And Plan: A 59-year-old male with: 1.Acute alcohol withdrawal, improving with Librium taper. We will adjust dose to 10 mg b.i.d. Cont inue Ativan p.r.n. No further hallucinations. Slightly tachycardic. Blood pressure is improved. 2.Polysubstance abuse with amphetamines and marijuana. Counseled. 3.Elevated liver enzymes secondary to hepatic injury from alcohol intoxication. Trending down. We will continue to monitor. The patient has been counseled. 4.Acute kidney injury secondary to rhabdomyolysis and methamphetamine abuse. Resolved. Nephrology on board. Intravenous fluids have been adjusted. Continue to monitor creatinine level. Avoid nonst eroidal anti-inflammatory drugs. 5.Acute rhabdomyolysis, nontraumatic, resolved. Intravenous fluids. 6.Hypomagnesemia. We will replace and monitor. 7.Hypokalemia. We will replace and monitor. 8.Acute conjunctivitis in the right eye. Continue with erythromycin ointment. 9.Nicotine dependence with cigarette smoking, continuous. Counseled. 10.Chronic pain syndrome with multiple injuries. We will discontinue morphine and switch to Walls. 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 Physical Therapy eval. 12.Deep venous thrombosis prophylaxis with sequential compression devices. Plan: Discharge in next 24-48 hours. Continue Librium taper. Recommend rehab. The patient was dec lined by [facility] M[facility]ALES Voice ID: [id number] Report ID: [id number]
[2019-06-22] MEDS: PROPRANOLOL HCL 10 MG TAB PO SCH (21:49)
[2019-06-23 06:01] LABS: Albumin 2.4 g/dL (3.4-5.0); Magnesium 1.7 mg/dL (1.8-2.4); Potassium 3.8 mmol/L (3.5-5.1)
[2019-06-23] MEDS ORDERED: MAGNESIUM SULFATE 1 gm IVPB 1 GM/100 ML BAG IV ONE (09:00)
[2019-06-23] MEDS ORDERED: lisinopriL 10 MG TAB PO SCH (09:00)
[2019-06-23] MEDS ORDERED: POTASSIUM CL SA 10 MEQ TAB PO ONE (09:00)
[2019-06-23] MEDS ORDERED: chlordiazePOXIDE HCl 5 MG CAP PO SCH (09:00)
[2019-06-23] MEDS: chlordiazePOXIDE HCl 5 MG CAP PO SCH (09:00)
[2019-06-23 09:03] VITALS: BP 120/82; TEMP 97.8
[2019-06-23 09:13] VITALS: O2SAT 97
[2019-06-23] MEDS: ENOXAPARIN 40 MG/0.4 ML SQ SCH (10:02)
[2019-06-23] MEDS: ERYTHROMYCIN 1 APPL/1 GM TUBE RIGHT EYE SCH ×2 (10:02→13:00)
[2019-06-23] MEDS: PROPRANOLOL HCL 10 MG TAB PO SCH (10:03)
[2019-06-23] MEDS: FUROSEMIDE 20 MG TABLET PO SCH (10:04)
[2019-06-23] MEDS: PANTOPRAZOLE 40MG TABLET PO SCH (10:04)
[2019-06-23] MEDS: NIFEDIPINE XL 30 MG TABLET PO SCH (10:05)
[2019-06-23] MEDS: VENLAFAXINE HCL XR 37.5MG CAP PO SCH (10:05)
[2019-06-23] MEDS: NICOTINE 21 MG/PAT TD SCH (10:05)
[2019-06-23] MEDS: FOLIC ACID 1 MG, MULTIVITAMINS INJ 10 ML, THIAMINE HCL 100 MG in NA CHLORIDE 0.9% 1,000 ML IV SCH (11:14)
--- NOTE | 2019-06-24 04:54 | DS ---
Date of Discharge: 06/23/2019 Consultants: Dr. Marie with Nephrology and Dr. Chambers with Nephrology. Admitting Diagnoses: 1.Acute alcohol withdrawal. 2.Multi-substance abuse. 3.Elevated liver function tests due to toxic hepatic injury. 4.Acute kidney injury. 5.Methamphetamine abuse. 6.Nicotine dependence with cigarette smoking. Discharge Diagnoses: 1.Acute alcohol withdrawal with hallucinations, resolved. 2.Acute toxic encephalopathy, resolved. 3.Polysubstance abuse with methamphetamine and marijuana, counseled. 4.Elevated liver enzymes secondary to hepatic injury from alcohol intoxication, improving. 5.Acute kidney injury, resolved. 6.Acute rhabdomyolysis, nontraumatic, resolved. 7.Hypomagnesemia, replaced. 8.Hypokalemia, replaced. 9.Acute conjunctivitis in the right eye. Continue with erythromycin for a total of 1 week ointment. 10.Chronic pain syndrome due to multiple injuries. 11.Nicotine dependence with cigarette smoking, continuous, counseled. 12.Generalized weakness, improved. Hospital Course: Patient is a 59-year-old male, history of chronic pain due to multiple spine injuri es, chronic alcohol abuse, tobacco abuse, and substance abuse, comes in with agitation, in coherence was hallucinating, had used methamphetamine. He was admitted to the hospital, placed in the ICU due to his alcohol withdrawal symptoms. Patient was started on Librium taper. He required multiple IV m edications including Haldol, Ativan and Geodon to improve his symptoms. He was also noted to have ri ght eye conjunctivitis and was started on erythromycin ointment. Patient overall did well after his electrolytes were corrected and his kidney function improved with IV fluids. He was able to ambulate and his oxygen levels remained stable. He was more awake and alert. He was also seen by Nephrology due to his acute kidney injury, which was likely secondary to his dehydration and prerenal azotemia from his drinking. His kidney function normalized. Patient was counseled extensively. He has no in terest in going to rehab at this time. Wants to move to [place]. There is no family around. There is some family in [place]. Overall, patient did well. He was then cleared for discharge and was s ent home in a stable condition. Physical Examination: General: Awake, alert, oriented x3, not in any acute distress. CV: S1-S2. Respiratory: Moving air well bilaterally. Abdomen: Soft, nontender, nondistended. Positive bowel sounds. Extremities: No clubbing, cyanosis, or edema. Neurologic: Nonfocal. Impression: It should be noted that patient is high risk for readmission due to his chronic alcohol use and substance abuse. He was counseled extensively regarding his habits, which increases rate of morbidity and mortality. Patient voiced understanding. /YESSICA Voice ID: [id number] Report ID: [id number]
== END 2019-06-23 13:50 | disposition home or self-care (01) | DRG 896 ==
LOC: ER 20:57 → ERHOLD 23:39 → 3RD-ICU 06-19 16:54 → 4TH 06-22 13:21
PROVIDERS: ADMIT Internal Medicine; ATTEND Internal Medicine
DX: F10.239 Alcohol dependence with withdrawal, unspecified (principal); G92 Toxic encephalopathy; N17.9 Acute kidney failure, unspecified; M62.82 Rhabdomyolysis; F10.951 Alcohol use, unspecified with alcohol-induced psychotic disorder with hallucinations; F15.10 Other stimulant abuse, uncomplicated; F12.10 Cannabis abuse, uncomplicated; E83.42 Hypomagnesemia; E87.6 Hypokalemia; H10.31 Unspecified acute conjunctivitis, right eye; G89.29 Other chronic pain; F17.210 Nicotine dependence, cigarettes, uncomplicated; R53.1 Weakness; F10.129 Alcohol abuse with intoxication, unspecified
CPT/HCPCS: 36415; 36569; 70450; 71045; 76770; 80048; 80053; 80069; 80076; 80307; 80320; 80329; 81003; 81015; 82550; 82570; 83735; 83970; 84132; 84156; 84300; 84443; 84484; 85025; 85610; 85730; 87086; 87088; 90471; 93005; 96361; 96374; 97116; 97530; 99285; J0360; J1200; J1630; J1650; J2270; J2405; J3411; J3475; J3486; J7030; J7040; J7042; Q2035

== ENCOUNTER 2019-12-01 16:19 | Emergency (ER) | payer OTHER ==
--- OUTSIDE RECORDS SUMMARY | 2019-12-01 16:26 | XMS REPORT | Continuity of Care Document ---
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 Viral hepatitis Resolved Problem 05/18/2016 [facility] C (disorder) [facility] MULTIPLE Active [facility] FRACTURES OF [facility] RIBS, Center BILATERAL, S FRACTURE OF ONE Active [facility] [place] RIB, UNSP SIDE, INIT FOR Medications Medication Details Route Status Patient Ordering Order Source Instructions Provider Date Acetaminophen 1 tab, PO, Q6H, Active 300 MG / Codeine PRN Pain Score 2016 [facility] Phosphate 30 MG 7-10, # 24 tab, Oral Tablet 0 Refill(s) [Tylenol with Codeine #3] propranolol 10 10 mg = 1 tab, Active mg oral tablet PO, Q8H, # 90 2017 [place] tab, 0 Refill(s) Docusate Sodium 100 mg = 1 cap, Active 05/15/ 100 MG Oral PO, Daily, # 30 2017 [place] Capsule cap, 0 Refill(s) Lidocaine 0.05 1 patch, TOP, Active MG/MG Daily, Remove 2017 [facility] Transdermal after 12 hours, Patch # 30 patch, 0 Refill(s) lisinopril 10 mg 10 mg = 1 tab, Active oral tablet PO, Daily, # 30 2017 [place] tab, 0 Refill(s) gabapentin 400 800 mg = 2 cap, Active H MG Oral Capsule PO, Q8H, # 30 2017 [place] cap, 0 Refill(s) Sodium Chloride 250 mL, Route: No Longer 0.9% IV IVPB, Start Active 2016 [facility] date: 05/06/16 0:17:00 PERSONAL CHEF, Duration: 30 day, Stop date: 06/05/16 0:16:00 PERSONAL CHEF, PRN Line Flush BD Normal Saline Notes: (Same as: No Longer 04/17 Flush BD Posiflush) Active 2016 [facility] tramadol Notes: Not to No Longer hydrochloride 50 exceed Active [address] [facility] [address] MG Oral Tablet 400mg/day. (Same As: Ultram) Dilaudid 0.5 mg, 0.5 mL, Inactive Route: IVP, Drug 2016 [facility] form: INJ, ONCE, Dosing Weight 100, kg, Priority: STAT, Start date: 05/04/16 13:48:00 PERSONAL CHEF, Stop date: 05/04/16 13:48:00 PERSONAL CHEF Lidocaine 1 spray, Route: Inactive Hydrochloride 20 TOP, ONCE, Start 2016 [facility] MG/ML Topical date: 05/04/16 [place] 12:11:00 PERSONAL CHEF, Stop date: 05/04/16 12:11:00 PERSONAL CHEF Dilaudid 1 mg, Route: Inactive IVP, ONCE, 2016 [facility] Dosing Weight 100, kg, PRN Other -See Comment, Start date: 05/04/16 11:57:00 PERSONAL CHEF lidocaine Notes: No Longer Preservative Active 2016 [facility] free. (Same as: Xylocaine-MPF) Acetaminophen Notes: (Same as: No Longer 325 MG / [place] 325/5) Do Active 2016 [facility] Hydrocodone not exceed Bitartrate 5 MG 4gm/day of Oral Tablet acetaminophen. [[place] 5/325] lidocaine 2% 1 appl, Route: No Longer injectable TOP, Dosing Active 2016 [facility] solution Weight 100, kg, Daily, PRN Wound Care, Start date: 05/01/16 16:05:00 PERSONAL CHEF, Duration: 30 day, Stop date: 05/31/16 16:04:00 PERSONAL CHEF Dilaudid 1 mg, 1 mL, No Longer Route: IVP, Drug Active 2016 [facility] form: INJ, Daily, Dosing Weight 100, kg, PRN Pain Score 4-6, 30 mins before dressing change, Start date: 05/01/16 16:00:00 PERSONAL CHEF, Duration: 30 day, Stop date: 05/31/16 15:59:00 PERSONAL CHEF Morphine Notes: (Same Inactive as:MORPhine 2016 [facility] Sulfate) tramadol 50 mg Notes: Not to Inactive oral tablet exceed 2017 [facility] 400mg/day. (Same As: Ultram) tramadol Notes: Not to No Longer hydrochloride 50 exceed Active [address] [facility] [address] MG Oral Tablet 400mg/day. (Same As: Ultram) Morphine Notes: (Same Inactive as:MORPhine 2017 [facility] Sulfate) Acetaminophen Notes: (Same as: Inactive 325 MG / [place] 325/5) Do 2016 [facility] Hydrocodone not exceed Bitartrate 5 MG 4gm/day of Oral Tablet acetaminophen. [[place] 5/325] Acetaminophen Notes: (Same as: No Longer 325 MG / [place] 325/5) Do Active 2016 [facility] Hydrocodone not exceed Bitartrate 5 MG 4gm/day of Oral Tablet acetaminophen. [[place] 5/325] Dilaudid 0.5 mg, Route: Inactive IVP, ONCE, 2016 [facility] Dosing Weight 100, kg, Priority: STAT, Start date: 04/26/16 16:07:00 PERSONAL CHEF, Stop date: 04/26/16 16:07:00 PERSONAL CHEF Fentanyl Notes: (Same as: Inactive Sublimaze) 2016 [facility] Preservative free. Flumazenil Notes: (Same as: Inactive Romazicon) 2016 [facility] Hydromorphone 0.5 mg, 0.5 mL, Inactive H Route: IVP, Drug 2016 [facility] form: INJ, Q5Min, Dosing Weight 100, kg, PRN Pain Score 7-10, Start date: 04/26/16 15:13:00 PERSONAL CHEF, Duration: 4 doses or times, Stop date: 04/26/16 23:00:00 PERSONAL CHEF Naloxone Notes: Same as Inactive Narcan 2016 [facility] Ondansetron Notes: (Same as: Inactive Zofran) 2016 [facility] MEDICATION WASTE Product Size: 4 mg Product Wasted: ___ mg Calcium Chloride 1,000 mL, Rate: No Longer 04/25 0.0014 MEQ/ML / 25 ml/hr, Infuse Active 2016 [facility] Potassium over: 40 hr, Chloride 0.004 Route: IV, MEQ/ML / Sodium Dosing Weight Chloride 0.103 100 kg, Total MEQ/ML / Sodium Volume: 1,000, Lactate 0.028 Start date: MEQ/ML 04/25/16 Injectable 15:27:00 PERSONAL CHEF, Solution Duration: 30 day, Stop date: 05/25/16 15:26:00 PERSONAL CHEF Habitrol Notes: (Same as: Inactive Habitrol) 2016 [facility] "Remove old patch before application of new patch" WASTE: F/P - P Waste Black; E - P Waste Black sodium Notes: (Dakin's No Longer hypochlorite (0.125%=1/4 Active [address] [facility] [address] topical 0.125% strength) 473ml solution top SOLN) For external use only. Note: quarter strength = 0.125% sodium hypochlorite. Lisinopril Notes: (Same as: No Longer Prinivil, Active 2016 [facility] Zestril) Acetaminophen Notes: Do not No Longer 325 MG / exceed 4gm/day Active 2015 Nicole cerda Hydrocodone of Bitartrate 10 MG acetaminophen. Oral Tablet (Same as: [place] [[place] 10/325] 325/10) lidocaine Notes: Apply No Longer topical patch only once for up Active 2015 [place] (5% film) to 12 hours in a 24-hour period (12 hours on and 12 hours off). (Same as: Lidoderm) "Remove old patch before application of new patch" Oxycodone Notes: (Same as: Inactive Hydrochloride 5 Roxicodone) 2015 [place] Oral Tablet remove patch Notes: Remove No Longer patch 12 hours Active 2015 [facility] after application each day. Roxicodone Notes: (Same as: No Longer Roxicodone) Active 2015 [facility] Roxicodone Notes: (Same as: No Longer Roxicodone) Active 2015 [facility] Nicotine Notes: (Same as: No Longer Habitrol) Active 2015 [facility] "Remove old patch before application of new patch" WASTE: F/P - P Waste Black; E - P Waste Black multivitamin Notes: (Same No Longer as:Thera) Active 2015 [facility] WASTE: F/P - Black; E - Municipal Trash Bin Take with food. Lidocaine 0.05 Notes: Apply No Longer MG/MG only once for up Active 2015 [facility] Transdermal to 12 hours in a Patch 24-hour period (12 hours on and 12 hours off). (Same as: Lidoderm) "Remove old patch before application of new patch" Docusate Sodium Notes: (Same as: No Longer 04/01 100 MG Oral Colace) (Do Not Active [place] Capsule Crush) Lovenox Notes: (Same as: No Longer Lovenox) Active 2015 [facility] Risperidone Notes: (Same as: No Longer H Risperdal) Active 2015 [facility] quetiapine Notes: (Same as: No Longer SEROquel) Active 2015 [facility] Acetaminophen Notes: Do not No Longer 325 MG / exceed 4gm/day Active 2015 Hydrocodone of Bitartrate 10 MG acetaminophen. Oral Tablet (Same as: [place] [[place] 10/325] 325/10) Roxicodone Notes: (Same as: No Longer Roxicodone) Active 2015 [facility] Psyllium Notes: (Same as: No Longer Metamucil) Mix Active 2015 in 8 oz liquid with meal. POLYETHYLENE Notes: Dissolve No Longer 03/31/ M H GLYCOL 3350 in 8 oz of water Active 2015 [place] or juice. (Same as: Miralax) Methocarbamol Notes: (Same No Longer as:Robaxin) Active 2015 [facility] Propranolol Notes: Give with No Longer 03/31/ M H food. (Same as: Active 2015 t Inderal) gabapentin 400 Notes: (Same as: No Longer MG Oral Capsule Neurontin) Active 2015 [facility] Hydralazine Notes: (Same as: No Longer H Hydrochloride 25 Apresoline) August Active 2015 [facility] MG Oral Tablet interfere w/enteral feedings Take With Food. Enoxaparin 40 mg, 0.4 mL, Inactive Route: SUB-Q, 2015 [facility] Drug form: INJ, [id number], Dosing Weight 100, kg, Start date: 03/31/16 15:00:00 PERSONAL CHEF, Duration: 30 day, Stop date: 04/29/16 15:00:00 PERSONAL CHEF Oxycodone Notes: (Same as: Inactive Hydrochloride 5 Roxicodone) 2015 [place] MG Oral Tablet Haloperidol Notes: (Same as: No Longer H Haldol) Active 2015 [facility] gabapentin 400 800 mg = 2 cap, On Hold [place] MG Oral Capsule PO, Q8H, 0 2015 Medic al Refill(s) [place] gabapentin 800 PO, Q8H, 0 [place] Oral Tablet Refill(s) 2015 [facility] haloperidol 2 mg 2 mg = 1 tab, On Hold [place] oral tablet PO, TID, PRN as 2016 Medi rajan needed for Center agitation, 0 Refill(s) risperiDONE 0.5 0.5 mg = 1 tab, On Hold [place] mg oral tablet PO, Q12H, 0 2015 Medic al Refill(s) [place] QUEtiapine 25 mg 25 mg = 1 tab, On Hold [place] oral tablet PO, Bedtime, 0 2015 Medic al Refill(s) [place] psyllium 3.4 3.4 gm =, PO, [place] g/3.7 g oral BID, 0 Refill(s) 2015 [place] powder Center propranolol 10 10 mg = 1 tab, On Hold [place] mg oral tablet PO, Q8H, 0 2015 Medica l Refill(s) [place] POLYETHYLENE 17 gm, PO, BID, On Hold [place] GLYCOL 3350 0 Refill(s) 2016 [facility] enoxaparin 40 40 mg = 0.4 mL, On Hold [facility] mg/0.4 mL SUB-Q, [id number], 2016 Medic al subcutaneous 0 Refill(s) Center solution Docusate Sodium 100 mg = 1 cap, On Hold [place] 100 MG Oral PO, Daily, 0 2016 Medical Capsule Refill(s) Center Oxycodone 5 mg = 1 tab, On Hold [place] Hydrochloride 5 PO, Q4H, PRN 2016 Med ical MG Oral Tablet Pain Score 7-10, Center 0 Refill(s) Nicotine 14 mg = 1 patch, On Hold [place]ermaine as TOP, Daily, 0 2015 Medical Refill(s) Center Acetaminophen 1 tab, PO, Q6H, On Hold [place] 325 MG / 0 Refill(s) 2016 Medical Hydrocodone Center Bitartrate 10 MG Oral Tablet [[place] 10/325] multivitamin 1 tab, PO, On Hold [facility] Daily, 0 2016 Medical Refill(s) Center methocarbamol 750 mg = 1 tab, On Hold [place] 750 mg oral PO, TID, 0 2016 Medical tablet Refill(s) Center Lidocaine 0.05 1 patch, TOP, On Hold [place] MG/MG Daily, Remove 2016 Medical Transdermal after 12 hours, Cent er Patch 0 Refill(s) Clonidine Notes: (Same As: No Longer [facility] Hydrochloride Catapres) Active 2016 Medical 0.1 MG Oral Center Tablet Robaxin Notes: (Same No Longer [facility] as:Robaxin) Active 2016 [facility] Dilaudid Notes: Same as Inactive [facility] s Dilaudid 2016 [facility] Center Oxycodone Notes: (Same as: No Longer [facility] Hydrochloride 5 Roxicodone) Active 2016 Medi rajan MG Oral Tablet Center lidocaine Notes: Apply No Longer Jermainea s topical patch only once for up Active 2015 M edical (5% film) to 12 hours in a Cente r 24-hour period (12 hours on and 12 hours off). (Same as: Lidoderm) "Remove old patch before application of new patch" Dilaudid Notes: Same as Inactive Jermainea s Dilaudid 2016 [facility] Center Isolyte S (PH Notes: (Same as: Inactive [facility] 7.4) 1000 mL Isolyte S PH 2016 Medica l 1,000 mL 7.4) Center Ancef 2 gm, Route: Inactive 03/21[facility] IVPB, ONCE, 2016 Medical Dosing Weight Center 100, kg, Start date: 03/21/16 17:40:00 PERSONAL CHEF, Duration: 1 doses or times, Stop date: 03/21/16 17:40:00 PERSONAL CHEF, Surgical Prophylaxis Only; For patients < 120 kg Ondansetron Notes: (Same as: Inactive [facility] Zofran) 2016 Medical MEDICATION WASTE Center Product Size: 4 mg Product Wasted: ___ mg Oxycodone Notes: (Same as: Inactive [facility] [place] Roxicodone) [address] [place] [address] Naloxone Notes: Same as Inactive 03/21[facility] [place] N[place]an 2016 [facility] Flumazenil Notes: (Same as: Inactive 03/21[facility] Romazicon) [address] [place] [address] Hydromorphone Notes: Same as Inactive [facility] Dilaudid [address] [place] [address] Center Labetalol 10 mg, 2 mL, Inactive 03/21[facility] Route: IVP, Drug 2016 Medical form: INJ, Center Q5Min, Dosing Weight 100, kg, PRN Elevated BP, Start date: 03/21/16 17:21:00 PERSONAL CHEF, Duration: 5 doses or times, Stop date: Limited # of times Hydralazine Notes: (Same as: Inactive 03/21[facility] Apresoline) Push 2016 Medical over 5 minutes Center sodium chloride 1,000 mL, Rate: No Longer [facility] 0.9% 1000 ml INJ 100 ml/hr, Active 2015 Medi rajan 1,000 mL Infuse over: 10 Center hr, Route: IV, Dosing Weight 100 kg, Total Volume: 1,000, Start date: 03/21/16 0:01:00 PERSONAL CHEF, Duration: 30 day, Stop date: 04/20/16 0:00:00 PERSONAL CHEF Acetaminophen Notes: Do not No Longer [facility] 325 MG / exceed 4gm/day Active 2015 Medical Hydrocodone of Center Bitartrate 10 MG acetaminophen. Oral Tablet (Same as: [place] [[place] 10/325] 325/10) gabapentin 800 Notes: (Same as: No Longer [place] MG Oral Tablet Neurontin) Active 2016 Medica l Center Haldol Notes: (Same as: [place] Longer [place] Haldol) Active 2016 Medical Center Acetaminophen Notes: Do not No Longer [place] 325 MG / exceed 4gm/day Active 2016 Medical Hydrocodone of Center Bitartrate 10 MG acetaminophen. Oral Tablet (Same as: [place] [[place] 10/325] 325/10) Docusate Notes: (Same as: No Longer [place] Colace) (Do Not Active 2015 Medical Crush) Center Inderal Notes: Give with No Longer [place] food. (Same as: Active 2016 Medical Inderal) Center gabapentin 300 Notes: (Same as: Inactive [place] MG Oral Capsule Neurontin) 2016 Medic al Center Oxycodone Notes: (Same as: No Longer [place] Hydrochloride 5 Roxicodone) Active 2015 Medi rajan MG Oral Tablet Center Oxycodone Notes: (Same as: No Longer [place] Hydrochloride 5 Roxicodone) Active 2016 Medi rajan MG Oral Tablet Center Oxycodone Notes: (Same as: Inactive [place] Hydrochloride 5 Roxicodone) 2016 Medi rajan MG Oral Tablet Center Acetaminophen Notes: Do not Inactive [place] 325 MG / exceed 4gm/day 2016 Medical Hydrocodone of Center Bitartrate 10 MG acetaminophen. Oral Tablet (Same as: [place] [[place] 10/325] 325/10) Miralax Notes: Dissolve No Longer [place] as in 8 oz of water Active 2016 Medical or juice. (Same Center as: Miralax) Acetaminophen Notes: Do not Inactive [place] 325 MG / exceed 4gm/day 2016 Medical Hydrocodone of Center Bitartrate 10 MG acetaminophen. Oral Tablet (Same as: [place] [[place] 10/325] 325/10) gabapentin 300 60 ml/min), Inactive [place] MG Oral Capsule Start date: 2015 Medi rajan 03/18/16 Center 16:00:00 PERSONAL CHEF, Duration: 30 day, Stop date: 04/17/16 8:00:00 PERSONAL CHEF gabapentin 300 Notes: (Same as: No Longer [place] MG Oral Capsule Neurontin) Active 2015 Medic al Center Ondansetron Notes: (Same as: Inactive [facility] Zofran) 2016 Medical MEDICATION WASTE Center Product Size: 4 mg Product Wasted: _0__ mg Naloxone Notes: Same as [place] Narcan 2016 Medical Center Flumazenil Notes: (Same as: Inactive [place] Romazicon) 2016 [facility] Center Oxycodone Notes: (Same as: Inactive [place] Roxicodone) 2016 [facility] Center Hydromorphone Notes: Same as Inactive [facility] Dilaudid 2016 Medical Center Labetalol 10 mg, 2 mL, Inactive [facility] Route: IVP, Drug 2016 Medical form: INJ, Center Q5Min, Dosing Weight 100, kg, PRN Elevated BP, Start date: 03/18/16 9:21:00 PERSONAL CHEF, Duration: 5 doses or times, Stop date: Limited # of times Hydralazine Notes: (Same as: Inactive [facility] Apresoline) Push 2016 Medical over 5 minutes Center ceFAZolin (SCIP) 2 gm, Route: Inactive [facility] IVPB, Drug form: 2016 Medical INJ, ONCE, Center Dosing Weight 100, kg, Start date: 03/18/16 7:58:00 PERSONAL CHEF, Stop date: 03/18/16 7:58:00 PERSONAL CHEF Plasma-Lyte A Notes: WASTE: No Longer [facility] PH-7.4 1000 ml F/P - Sink; E - Active 2015 edical INJ 1,[address] Bin Lovenox Notes: (Same as: [place] Longer [place] Lovenox) Active 2015 Medical Center Benzocaine 200 1 spray, Route: Inactive [place] MG/ML Mucosal TOP, Q6H, Drug 2016 Med ical [place] form: SPRY, PRN Center [Hurricaine] Mouth Pain, Start date: 03/14/16 16:25:00 PERSONAL CHEF, Duration: 30 day, Stop date: 04/13/16 16:24:00 PERSONAL CHEF Benzocaine 200 Notes: (Same As: Inactive [place] MG/ML Mucosal Hurricaine) 2015 Medica l [place] WASTE: F/P - Center [Hurricaine] Black; E - Municipal Trash Bin FOR ORAL USE Ondansetron 4 mg, Route: Inactive [place] as IVP, ONCE, 2015 Medical Dosing Weight Center 100, kg, PRN Nausea & Vomiting, Start date: 03/14/16 8:36:00 PERSONAL CHEF Flumazenil 0.2 mg, Route: Inactive [place] IVP, PRN, Dosing 2015 Medical Weight 100, kg, Center PRN Benzodiazepine Reversal, Initial dose, Start date: 03/14/16 8:36:00 PERSONAL CHEF, Duration: 30 day, Stop date: 04/13/16 8:35:00 PERSONAL CHEF Naloxone 0.4 mg, Route: [place] IVP, Q2MIN, 2015 Medical Dosing Weight Center 100, kg, PRN Narcotic Reversal, Start date: 03/14/16 8:36:00 PERSONAL CHEF, Duration: 8 doses or times, Stop date: Limited # of times Hydromorphone 0.5 mg, Route: Inactive [place] IVP, Q5Min, 2015 Medical Dosing Weight Center 100, kg, PRN Pain Score 7-10, Start date: 03/14/16 8:36:00 PERSONAL CHEF, Duration: 4 doses or times, Stop date: Limited # of times Isolyte S (PH Notes: (Same as: No Longer [place] 7.4) 1000 mL Isolyte S PH Active 2015 Medica l 1,000 mL 7.4) Center Electrolyte 1,000 mL, Rate: Inactive [place] Solution 1000 mL 100 ml/hr, 2016 Medi rajan Infuse over: 10 Center hr, Route: IV, Dosing Weight 100 kg, Total Volume: 1,000, Start date: 03/14/16 0:19:00 PERSONAL CHEF, Duration: 30 day, Stop date: 04/13/16 0:18:00 PERSONAL CHEF Clonidine Notes: (Same As: No Longer [place] Hydrochloride Catapres) Active 2015 Medical 0.1 MG Oral Center Tablet Fentanyl Notes: (Same as: Inactive [place] Sublimaze) 2015 Medical Preservative Center free. Ondansetron 4 mg, Route: Inactive [place] as IVP, ONCE, 2015 Medical Dosing Weight Center 100, kg, PRN Nausea & Vomiting, Start date: 03/11/16 18:08:00 PERSONAL CHEF Flumazenil 0.2 mg, Route: Inactive [place] IVP, PRN, Dosing 2015 Medical Weight 100, kg, Center PRN Benzodiazepine Reversal, Initial dose, Start date: 03/11/16 18:08:00 PERSONAL CHEF, Duration: 30 day, Stop date: 04/10/16 18:07:00 PERSONAL CHEF Naloxone 0.4 mg, Route: [place]active [place] IVP, Q2MIN, 2015 Medical Dosing Weight Center 100, kg, PRN Narcotic Reversal, Start date: 03/11/16 18:08:00 PERSONAL CHEF, Duration: 8 doses or times, Stop date: Limited # of times Hydromorphone 0.5 mg, Route: Inactive [place] IVP, Q5Min, 2015 Medical Dosing Weight Center 100, kg, PRN Pain Score 7-10, Start date: 03/11/16 18:08:00 PERSONAL CHEF, Duration: 4 doses or times, Stop date: Limited # of times Isolyte S (PH Notes: (Same as: No Longer [place] 7.4) 1000 mL Isolyte S PH Active 2015 Medica l 1,000 mL 7.4) Center Ondansetron Notes: (Same as: Inactive [facility] Zofran) 2016 Medical MEDICATION WASTE Center Product Size: 4 mg Product Wasted: ___ mg Naloxone Notes: Same as [place] Narcan 2016 Medical Center Hydromorphone Notes: Same as Inactive [facility] Dilaudid 2016 Medical Center Flumazenil Notes: (Same as: Inactive [facility] Romazicon) 2016 Medical Center sugammadex Notes: (Same as: No Longer [facility] Bridion) Active 2016 Medical Center Isolyte S (PH Notes: (Same as: No Longer [place] 7.4) 1000 mL Isolyte S PH Active 2015 Medica l 1,000 mL 7.4) Center Flomax Notes: (Same As: [place] Longer [place] Flomax) "Do Not Active 2015 Medical Crush" Center sugammadex Notes: (Same as: Inactive [place] Brid[place]) 2016 Medical Center Ondansetron 4 mg, Route: Inactive [place] as IVP, ONCE, 2016 Medical Dosing Weight Center 100, kg, PRN Nausea & Vomiting, Start date: 03/06/16 13:12:00 PERSONAL CHEF Acetaminophen 1,000 mg, Route: Inactive [place] PO, Drug form: 2016 Medical TAB, ONCE, Center Dosing Weight 100, kg, PRN Pain Score 1-3, Start date: 03/06/16 13:12:00 PERSONAL CHEF, Duration: 1 doses or times, Stop date: Limited # of times Flumazenil 0.2 mg, Route: Inactive [place] IVP, PRN, Dosing 2016 Medical Weight 100, kg, Center PRN Benzodiazepine Reversal, Initial dose, Start date: 03/06/16 13:12:00 PERSONAL CHEF, Duration: 30 day, Stop date: 04/05/16 13:11:00 PERSONAL CHEF Naloxone 0.4 mg, Route: Inactive [place] IVP, Q2MIN, 2016 Medical Dosing Weight Center 100, kg, PRN Narcotic Reversal, Start date: 03/06/16 13:12:00 PERSONAL CHEF, Duration: 8 doses or times, Stop date: Limited # of times Ancef 2 gm, Route: Inactive [place] IVPB, ONCE, 2016 Medical Dosing Weight Center 100, kg, Start date: 03/06/16 12:12:00 PERSONAL CHEF, Duration: 1 doses or times, Stop date: 03/06/16 12:12:00 PERSONAL CHEF, Surgical Prophylaxis Only; For patients < 120 kg Oxycodone Notes: (Same as: No Longer [place] Hydrochloride 5 Roxicodone) Active 2015 Medi rajan MG Oral Tablet Center Seroquel Notes: (Same as: No Longer [place] SEROquel) Active 2016 Medical Center Metamucil Notes: (Same as: No Longer [place] Metamucil) Mix Active 2015 Medical in 8 oz liquid Center with meal. Flumazenil Notes: (Same as: Inactive [place] Romazicon) 2016 [facility] Center Naloxone Notes: Same as [place] Narcan 2016 Medical Center Ondansetron Notes: (Same as: Inactive [place] Zofran) 2016 Medical MEDICATION WASTE Center Product Size: 4 mg Product Wasted: ___ mg Hydromorphone Notes: Same as Inactive [place] Dilaudid 2016 Medical Center Labetalol 10 mg, 2 mL, Inactive [place] Route: IVP, Drug 2015 Medical form: INJ, Center Q5Min, Dosing Weight 100, kg, PRN Elevated BP, Start date: 03/03/16 8:42:00 PERSONAL CHEF, Duration: 5 doses or times, Stop date: 03/04/16 0:00:00 PERSONAL CHEF Morphine Notes: (Same Inactive [facility] as:MORPhine 2016 Medical Sulfate) Center Hydralazine Notes: (Same as: Inactive [place] Apresoline) Push 2016 Medical over 5 minutes Center Ancef 2 gm, Route: Inactive [facility] IVPB, ONCE, 2016 Medical Dosing Weight Center 100, kg, Start date: 03/03/16 8:04:00 PERSONAL CHEF, Duration: 1 doses or times, Stop date: 03/03/16 8:04:00 PERSONAL CHEF, Surgical Prophylaxis Only; For patients < 120 kg zinc oxide Notes: Same as: No Longer [place] topical 40% Desitin Active 2015 Medical ointment Center Zinc Oxide 0.2 1 appl, Route: Inactive [place] MG/MG Topical TOP, PRN, Drug 2015 Med ical Ointment form: OINT, PRN Center Diaper Rash, Start date: 03/02/16 18:16:00 PERSONAL CHEF, Duration: 30 day, Stop date: 04/01/16 18:15:00 PERSONAL CHEF Risperdal Notes: (Same as: No Longer [place] Risperdal) Active 2015 Medical Center Propofol 10 Notes: If No Longer [place] MG/ML Injectable Diprivan - Active 2015 [facility] rajan Suspension change bottle & Cente r tubing every 12 hr Per state nursing law propofol can only be given by a nurse if patient is intubated or being intubated (unless the nurse is a SENIOR PRODUCTION SUPERVISOR). Same as: Diprivan Haldol Notes: (Same as: [place] Haldol) Active 2015 Medical Center Benadryl Notes: (Same as: Inactive [place] Benadryl) 2016 [facility] Center Fentanyl 50 microgram, Inactive [place] Route: IV, ONCE, 2015 Medical Dosing Weight Center 100, kg, Start date: 03/01/16 11:15:00 PERSONAL CHEF, Stop date: 03/01/16 11:15:00 PERSONAL CHEF Versed 2 mg, Route: Inactive [place] IVP, ONCE, 2015 Medical Dosing Weight Center 100, kg, Start date: 03/01/16 11:15:00 PERSONAL CHEF, Stop date: 03/01/16 11:15:00 PERSONAL CHEF Versed Notes: (Same as: Inactive [place] as Versed) 2016 Medical MEDICATION WASTE Center Product Size: 2 mg Product Wasted: ___ mg Miralax Notes: Dissolve No Longer [place] as in 8 oz of water Active 2016 Medical or juice. (Same Center as: Miralax) Docusate Notes: (Same as: No Longer [place] Colace) Active 2015 Medical Center sennosides, SKILLED NURSING Notes: (Same as: No Longer 03/01 [place] Senokot) Active 2015 Medical Center Versed Notes: (Same as: [place]er [place] Versed) Active 2015 Medical MEDICATION WASTE Center Product Size: 2 mg Product Wasted: ___ mg Fentanyl Notes: (Same as: No Longer [place] Sublimaze) Active 2015 Medical Preservative Center free. Clonidine Notes: (Same As: No Longer [place] Hydrochloride Catapres) Active 2015 Medical 0.3 MG Oral Center Tablet sugammadex Notes: (Same as: Inactive [place] Bridion) 2015 [facility] Ancef 2 gm, Route: Inactive [place] IVPB, ONCE, 2015 Medical Dosing Weight Center 100, kg, Start date: 02/29/16 14:02:00 PERSONAL CHEF, Duration: 1 doses or times, Stop date: 02/29/16 14:02:00 PERSONAL CHEF, Surgical Prophylaxis Only; For patients < 120 kg Dakins Solution Notes: (Dakin's No Longer [place] (0.125%=1/ Active 2015 Medical strength) 473ml Center top SOLN) For external use only. Note: quarter strength = 0.125% sodium hypochlorite. PHOS-NaK Notes: (Same as: No Longer [place] Phos-NaK) Each Active 2015 Medical 1.5 gm pkt has Center 250mg phosphorous. Mix w/2.5oz water and stir. Benadryl Notes: (Same as: Inactive [place] Benadryl) 2016 Medical Center Mylanta Gas Notes: (Same as: Inactive [place] Mylicon) 2016 Medical Center Isolyte S PH-7.4 Notes: (Same as: No Longer 02/14 [place] (Bolus) IV Isolyte S PH Active 2015 [facility] 7.4) Center Flomax Notes: (Same As: Inactive [place] as Flomax) "Do Not 2016 Medical Crush" Center Propofol 10 Notes: If No Longer [place] MG/ML Injectable Diprivan - Active 2015 [facility] Suspension change bottle & Cente r tubing every 12 hr Per state nursing law propofol can only be given by a nurse if patient is intubated or being intubated (unless the nurse is a SENIOR PRODUCTION SUPERVISOR). Same as: Diprivan Fentanyl 1,000 microgram, No Longer [place] 20 mL, Rate: Active 2015 Medical Titrate, Start Center Dose: 50 microgram/hr, Titration: Titrate by 25 micrograms/hour every 15 minutes, Goal(s): RASS 0, Max Dose: 300 mcg/hr, Route: IV, Dosing Weight 100 kg, Total Volume: 20, Start date: 02/25/16 10:59:00 PERSONAL CHEF,... Nicotine Notes: (Same as: No Longer [place] Habitrol) Active 2015 Medical "Remove old Center patch before application of new patch" WASTE: F/P - P Waste Black; E - P Waste Black Propranolol Notes: Give with No Longer H [place] food. (Same as: Active 2015 Medical Inderal) Center Risperidone Notes: (Same as: No Longer [place] Risperdal) Active 2015 Medical Center Haldol 2 mg, Route: IM, [place] Longer [place] Q4H, Dosing Active 2015 Medical Weight 100, kg, Center Start date: 02/25/16 0:00:00 PERSONAL CHEF, Duration: 30 day, Stop date: 03/25/16 20:00:00 PERSONAL CHEF Haldol Notes: (Same as: [place]er [place] Haldol) Active 2015 Medical Center Haldol 2 mg, Route: PO, Inactive Jermaine as Drug form: TAB, 2016 Medical TID, Dosing Center Weight 100, kg, PRN Anxiety, Start date: 02/24/16 21:43:00 PERSONAL CHEF, Duration: 30 day, Stop date: 03/25/16 21:42:00 PERSONAL CHEF remove patch Notes: Remove No Longer [place] patch 12 hours Active 2015 Medical after Center application each day. Seroquel 50 mg, Route: [place] Longer [place] PO, Drug form: Active 2015 Medical TAB, Bedtime, Center Dosing Weight 100, kg, Start date: 02/24/16 21:00:00 PERSONAL CHEF, Duration: 30 day, Stop date: 03/24/16 21:00:00 PERSONAL CHEF Clonidine Notes: (Same As: No Longer [place] Hydrochloride Catapres) Active 2015 [facility] 0.3 MG Oral Center Tablet Vancomycin 2001 mg: infuse Inactive [place] over 2.5 hours 2016 [facility] Center Propranolol Notes: Give with No Longer [place] food. (Same as: Active 2015 [facility] Inderal) Center Lidocaine Notes: Apply [place] Longer [place] Hydrochloride only once for up Active 2015 edical 0.05 MG/MG to 12 hours in a Cent er Transdermal 24-hour period Patch [Lidoderm] (12 hours on and 12 hours off). (Same as: Lidoderm) "Remove old patch before application of new patch" potassium 21 mmol, Route: Inactive [place] phosphate IVPB, ONCE, 2015 Medical Dosing Weight Center 100, kg, Start date: 02/24/16 8:18:00 PERSONAL CHEF, Stop date: 02/24/16 8:18:00 PERSONAL CHEF PHOS-NaK Notes: (Same as: No Longer [place] Phos-NaK) Each Active 2016 Medical 1.5 gm pkt has Center 250mg phosphorous. Mix w/2.5oz water and stir. potassium Notes: (Same as: Inactive [place] phosphate + K Phosphate.) 1 2015 Med ical sodium chloride mMol phoshate Ce nter 0.9% INJ 250 mL has 1.47 mEq potassium Infuse over 4 hours Clonidine Notes: (Same As: Inactive [place] Hydrochloride Catapres) 2016 Medical 0.2 MG Oral Center Tablet Risperdal Notes: (Same as: No Longer [place] Risperdal) Active 2015 [facility] Center Seroquel Notes: (Same as: [place] SEROquel) 2016 [facility] Center Docusate Notes: (Same as: No Longer [place] Colace) Active 2015 [facility] Risperdal 0.5 mg, Route: Inactive [place] as PO, Drug form: 2015 Medical TAB, BID, Dosing Center Weight 100, kg, Start date: 02/23/16 17:00:00 PERSONAL CHEF, Duration: 30 day, Stop date: 03/24/16 9:00:00 PERSONAL CHEF Vancomycin 2001 mg: infuse No Longer [place] over 2.5 hours Active 2015 [facility] Diazepam Notes: (Same as: No Longer [place] Valium) WASTE: Active 2015 [facility] F/P - Black; E - Center White/Blue Diazepam 10 mg, Route: Inactive [place] IVP, Drug form: 2015 Medical INJ, Q10Min, Center Dosing Weight 100, kg, PRN Anxiety, Start date: 02/23/16 14:10:00 PERSONAL CHEF, Duration: 30 day, Stop date: 03/24/16 14:09:00 PERSONAL CHEF Oxycodone 10 mg, Route: [place] Hydrochloride 5 PO, Drug form: 2015 M edical MG Oral Tablet TAB, Q6H, Dosing Center Weight 100, kg, Start date: 02/23/16 12:00:00 PERSONAL CHEF, Duration: 30 day, Stop date: 03/24/16 6:00:00 PERSONAL CHEF Ceftazidime Notes: (Same as: No Longer [facility] [place]) Active 2015 Medical MEDICATION WASTE Center Product Size: 1000 mg Product Wasted: _0_ mg Vancomycin 1.5 gm, Route: Inactive [place] IVPB, Drug form: 2016 Medical INJ, [id number], Center Dosing Weight 100, kg, Start date: 02/23/16 10:00:00 PERSONAL CHEF, Duration: 30 day, Stop date: 03/24/16 4:00:00 PERSONAL CHEF Oxycodone Notes: (Same as: No Longer [place] Hydrochloride 5 Roxicodone) Active 2015 Medi rajan MG Oral Tablet Center Vancomycin 2001 mg: infuse Inactive [place] over 2.5 hours 2016 [facility] Risperdal Notes: (Same as: Inactive [place] Risperdal) 2016 [facility] multivitamin Notes: (Same No Longer [place] as:Thera) Active 2015 Medical WASTE: F/P - Center Black; E - Municipal Trash Bin Take with food. Lorazepam Notes: (Same as: No Longer [place] Ativan) Active 2015 [facility] midazolam 50mg/ Notes: (Same as: Inactive [place] NS 50ml drip Versed) 2016 Medical (premixed) 50 mg Center Valium Notes: (Same as: No Longer [place] branch Valium) Active 2015 [facility] Isolyte S (PH Notes: (Same as: No Longer [place] 7.4) 1000 mL Isolyte S PH Active 2015 Medica l 1,000 mL 7.4) Center Fentanyl 1,000 microgram, No Longer [place] 20 mL, Rate: Active 2015 Medical Titrate, Start Center Dose: 50 microgram/hr, Titration: Titrate by 25 micrograms/hour every 15 minutes, Goal(s): RASS 0, Max Dose: 300 mcg/hr, Route: IV, Dosing Weight 100 kg, Total Volume: 20, Start date: 02/22/16 17:02:00 PERSONAL CHEF,... Propofol 10 Notes: If No Longer [place] MG/ML Injectable Diprivan - Active 2015 Medi rajan Suspension change bottle & Cente r tubing every 12 hr Per state nursing law propofol can only be given by a nurse if patient is intubated or being intubated (unless the nurse is a SENIOR PRODUCTION SUPERVISOR). Same as: Diprivan Dextrose 50% 12.5 gm, 25 mL, No Longer H [place] Syringe Route: IVP, Drug Active 2015 Medical Form: INJ, Center Dosing Weight 100, kg, PRN, PRN Abnormal Lab Result, Start date: 02/22/16 17:02:00 PERSONAL CHEF, Duration: 30 day, Stop date: 03/23/16 17:01:00 PERSONAL CHEF, For FSBG 40 mg/dL - 60 mg/dL Insulin regular 60 units) No Longer [place] WASTE: F/P - Active 2016 Medical Black; E - Center Municipal Trash Bin Stable for 28 days at room temperature Expires in days from Da te Lorazepam Notes: (Same as: No Longer [place] Ativan) Active 2015 Medical Center Ancef 1 gm, Route: Inactive [place] IVPB, ONCE, 2015 Medical Dosing Weight Center 100, kg, Start date: 02/22/16 13:47:00 PERSONAL CHEF, Duration: 1 doses or times, Stop date: 02/22/16 13:47:00 PERSONAL CHEF, Surgical Prophylaxis Only; For patients < 120 kg Ancef 2 gm, Route: Inactive [facility] IVPB, ONCE, 2015 Medical Dosing Weight Center 100, kg, Start date: 02/22/16 10:47:00 PERSONAL CHEF, Duration: 1 doses or times, Stop date: 02/22/16 10:47:00 PERSONAL CHEF, Surgical Prophylaxis Only; For patients < 120 kg Miralax Notes: Dissolve No Longer [place] as in 8 oz of water Active 2016 Medical or juice. (Same Center as: Miralax) Bisacodyl Notes: (Same As: No Longer [facility] Dulcolax, Active 2015 Medical Bisco-Lax) Center Clonidine Notes: (Same As: No Longer [place] Hydrochloride Catapres) Active 2015 Medical 0.2 MG Oral Center Tablet Isolyte S (PH Notes: (Same as: No Longer [facility] 7.4) 1000 mL Isolyte S PH Active 2015 Medica l 1,000 mL 7.4) Center iodixanol Notes: (Same as: No Longer [facility] Visipaque). Active 2016 Medical WASTE: F/P - Center Black; E - Municipal Trash Bin Iohexol Notes: (Same Inactive [place] as:Omnipaque 2016 Medical 350). WASTE: Center F/P - Black; E - Municipal Trash Bin Lasix Notes: (Same as: Inactive [place] as Lasix) 2016 Medical MEDICATION WASTE Center Product Size: 40 mg Product Wasted: _20__ mg Lorazepam Notes: (Same as: No Longer [place] Ativan) Active 2016 Medical Center multivitamin Notes: (Same No Longer [place] as:Thera) Active 2015 Medical WASTE: F/P - Center Black; E - Municipal Trash Bin Take with food. Lorazepam Notes: (Same as: No Longer [facility] Ativan) Active 2015 Medical Center cloNIDine 0.3 mg Notes: (Same As: No Longer [facility] oral tablet Catapres) Active 2016 Medical Center Hydralazine Notes: (Same as: No Longer [facility] Apresoline) Push Active 2015 Medical over 5 minutes Center Isolyte S (PH Notes: (Same as: No Longer [facility] 7.4) 1000 mL Isolyte S PH Active 2015 Medica l 1,000 mL 7.4) Center Sodium Chloride 1,000 mL, Rate: No Longer [facility] 0.154 MEQ/ML 100 ml/hr, Active 2015 Medical Injectable Infuse over: Center Solution 10.1 hr, Route: IV, Dosing Weight 100 kg, Total Volume: 1,011.2, Start date: 02/19/16 13:51:00 CDT, Duration: 3 day, Stop date: 02/22/16 13:50:00 PERSONAL CHEF Lorazepam Notes: (Same as: Inactive [place] Ativan) 2015 Medical Center multivitamin Notes: (Same Inactive [place] as:Thera) 2015 Medical WASTE: F/P - Center Black; E - Municipal Trash Bin Take with food. Thiamine Notes: (Same As: Inactive [place] Vitamin B1) 2015 Medical Center Folic Acid Notes: (Same as: Inactive [place] Folvite) 2016 Medical Center Lorazepam Notes: (Same as: No Longer [place] Ativan) Active 2016 [facility] Center Valium Notes: (Same as: No Longer [place] Valium) Active 2016 [facility] potassium Notes: (Same as: No Longer [facility] phosphate-sodium Phos-NaK) Each Active 2015 Medical phosphate 1.5 gm pkt has Center 250mg phosphorous. Mix w/2.5oz water and stir. potassium 1.45 gm, Route: Inactive [place] phosphate PO, BID, Dosing 2016 Medica l Weight 100, kg, Center Start date: 02/18/16 9:00:00 CDT, Duration: 30 day, Stop date: 03/18/16 17:00:00 PERSONAL CHEF potassium Notes: (Same as: Inactive [place] phosphate-sodium Phos-NaK) Each 2015 Medical phosphate 1.5 gm pkt has Center 250mg phosphorous. Mix w/2.5oz water and stir. Calcium Notes: (Same As: Inactive [place] as Carbonate Tums) Calcium 2015 Medical Carbonate 500 mg Center = 200 mg elemental calcium Dose = mg calcium carbonate ( mg elemental calcium) Ipratropium Notes: SEE RT No Longer [place] 0.2 DOCUMENTATION Active 2015 Medica l MG/ML Inhalant (Same Center Solution as:Atrovent) Ativan Notes: (Same as: No Longer [place] Ativan) Active 2015 Medical [place] sennosides, SKILLED NURSING Notes: (Same as: No Longer 02/16 [facility] Senokot) Active 2015 Medical [place] Miralax Notes: Dissolve No Longer [place] as in 8 oz of water Active 2016 Medical or juice. (Same Center as: Miralax) Valium Notes: (Same as: No Longer [facility] [place] Valium) Active 2015 [facility] Clonidine Notes: (Same As: No Longer [facility] Catapres) Active 2016 [facility] potassium Notes: (Same as: Inactive [place] phosphate-sodium Phos-NaK) Each 2016 Medical phosphate 250 1.[address] has [address] mg-280 mg-160 mg 250mg oral powder for phosphorous. Mix reconstitution w/2.5oz water and stir. Valium 30 mg, Route: Inactive [place] PO, Drug form: 2016 Medical TAB, Q8H, Dosing Center Weight 100, kg, Priority: NOW, Start date: 02/16/16 11:21:00 CDT, Stop date: 03/17/16 8:00:00 PERSONAL CHEF Bisacodyl Notes: (Same As: Inactive [facility] [place] Dulcolax, 2016 Medical Bisco-Lax) Center Lovenox Notes: (Same as: No Longer [place] xalevi Lovenox) Active 2016 Medical Center tamsulosin Notes: (Same As: No Longer [facility] Flomax) "Do Not Active 2016 Medical Crush" Center gabapentin Notes: (Same as: No Longer [place] Neurontin) Active 2016 Medical Center Nicotine Notes: (Same as: Inactive [place] Habitrol) 2016 Medical "Remove old Center patch before application of new patch" WASTE: F/P - P Waste Black; E - P Waste Black Clonidine Notes: (Same As: No Longer [place] Catapres) Active 2016 Medical Center remove patch Notes: Remove No Longer [facility] old patch before Active 2016 Medical application of Center new patch. WASTE: F/P - P Waste Black; E - P Waste Black PHOS-NaK Notes: (Same as: No Longer [place] Phos-NaK) Each Active 2015 Medical 1.5 gm pkt has Center 250mg phosphorous. Mix w/2.5oz water and stir. Miralax Notes: Dissolve No Longer [place] as in 8 oz of water Active 2016 Medical or juice. (Same Center as: Miralax) sodium phosphate 30 mmol, 10 mL, Inactive [facility] + sodium Route: IVPB, 2016 Medical chloride 0.9% ONCE, Dosing Cente r INJ 250 mL Weight 100, kg, Start date: 02/15/16 4:57:00 CDT, Stop date: 02/15/16 4:57:00 CDT Insulin regular 60 units) No Longer [place] WASTE: F/P - Active 2015 Medical Black; E - Center Municipal Trash Bin Stable for 28 days at room temperature Expires in days from Da te Dextrose 50% 12.5 gm, 25 mL, No Longer [place] Syringe Route: IVP, Drug Active 2015 Medical Form: INJ, Center Dosing Weight 100, kg, PRN, PRN Abnormal Lab Result, Start date: 02/15/16 2:40:00 CDT, Duration: 30 day, Stop date: 03/16/16 1:39:00 PERSONAL CHEF, For FSBG 40 mg/dL - 60 mg/dL Risperidone Notes: (Same as: No Longer [place] Risperdal) Active 2016 [facility] Ativan Notes: (Same as: [place] Longer [place] Ativan) Active 2016 [facility] Haldol Notes: (Same as: Inactive [place] as Haldol) 2016 [facility] Haldol Notes: (Same as: [place] Longer [place] Haldol) Active [address] [place] [address] Ativan Notes: (Same as: Inactive [place] as Ativan) 2016 [facility] Valium Notes: (Same as: No Longer [place] Valium) Active [address] [place] [address] Valium Notes: (Same as: Inactive [place] as Valium) WASTE: 2016 Medical F/P - Black; E - Center White/Blue Valium Notes: (Same as: Inactive [place] as Valium) [address] [place] [address] Isolyte S PH-7.4 Notes: (Same as: Inactive 02/13 [place] (Bolus) IV Isolyte S PH7.4) 2016 [facility] Valium Notes: (Same as: Inactive [place] as Valium) WASTE: 2016 Medical F/P - Black; E - Center White/Blue Valium Notes: (Same as: Inactive [place] as Valium) WASTE: 2016 Medical F/P - Black; E - Center White/Blue Zofran Notes: (Same as: Inactive [place] as Zofran) 2016 Medical MEDICATION WASTE Center Product Size: 4 mg Product Wasted: ___ mg Ancef 1 gm, Route: Inactive [place] IVPB, ONCE, 2016 Medical Dosing Weight Center 100, kg, Start date: 02/14/16 11:42:00 CDT, Duration: 1 doses or times, Stop date: 02/14/16 11:42:00 CDT, Surgical Prophylaxis Only; For patients < 120 kg Ondansetron Notes: (Same as: Inactive [place] Zofran) 2016 Medical MEDICATION WASTE Center Product Size: 4 mg Product Wasted: ___ mg Hydromorphone Notes: Same as Inactive [place] Dilaudid 2016 Medical Center Oxycodone Notes: (Same as: Inactive [place] Roxicodone) 2016 Medical Center Calcium Chloride 1,000 mL, Rate: Inactive [place] 0.0014 MEQ/ML / 125 ml/hr, 2016 Medic al Potassium Infuse over: 8 Center Chloride 0.004 hr, Route: IV, MEQ/ML / Sodium Dosing Weight Chloride 0.103 100 kg, Total MEQ/ML / Sodium Volume: 1,000, Lactate 0.028 Start date: MEQ/ML 02/14/16 Injectable 10:00:00 CDT, Solution Duration: 30 day, Stop date: 03/15/16 9:59:00 PERSONAL CHEF PHOS-NaK Notes: (Same as: Inactive [place] Phos-NaK) Each 2016 Medical 1.5 gm pkt has Center 250mg phosphorous. Mix w/2.5oz water and stir. Ancef 2 gm, Route: Inactive [place] IVPB, ONCE, 2016 Medical Dosing Weight Center 100, kg, Start date: 02/14/16 7:43:00 CDT, Duration: 1 doses or times, Stop date: 02/14/16 7:43:00 CDT, Surgical Prophylaxis Only; For patients < 120 kg Bupivacaine Notes: Inactive [place] Hydrochloride (bupivacaine-epi 2016 M edical 2.5 MG/ML / 0.25%-1:200,000 Cent er Epinephrine 30 ml VL) Not 0.005 MG/ML for use in Injectable continuous Solution infusion. (Same [Marcaine with As: Marcaine Epinephrine w/Epi) 0.25/1:[id number]] Exparel Notes: (Same as: Inactive [place] as Exparel) 2016 Medical NOT FOR IV Center use Postoperative analgesia: Infiltration (local): Dose is based on surgical site and volume required to cover the area (in general, the maximum total dose is 266 mg). Bunionectomy: 7 mL into the tissues surrounding the osteotomy and 1 mL into the subcutaneous tissue of the surgical site (total dose = 8 mL [106 mg]) Hemorrhoidectomy : 30 mL (20 mL vial diluted with 10 mL NS) divided and administered as 6 injections of 5 mL each (total dose = 30 mL [266 mg]) Valium Notes: (Same as: Inactive [place] as Valium) WASTE: 2016 Medical F/P - Black; E - Center White/Blue Ondansetron Notes: (Same as: Inactive [place] Zofran) 2016 Medical MEDICATION WASTE Center Product Size: 4 mg Product Wasted: ___ mg Naloxone Notes: Same as Inactive [place] s Narcan [address] [place] [address] Flumazenil Notes: (Same as: Inactive [place] Romazicon) [address] [place] [address] Hydromorphone Notes: Same as Inactive Peryr Dilaudid [address] [place] [address] Labetalol 10 mg, 2 mL, Inactive [place] Route: IVP, Drug 2016 Medical form: INJ, Center Q5Min, Dosing Weight 100, kg, PRN Elevated BP, Start date: 02/14/16 6:40:00 CDT, Duration: 5 doses or times, Stop date: 02/15/16 0:00:00 CDT Hydralazine Notes: (Same as: Inactive [place] Apresoline) Push 2016 Medical over 5 minutes Center Oxycodone Notes: (Same as: Inactive [place] Roxicodone) [address] [place] [address] Center Magnesium Oxide Notes: (Same as: Inactive [place] Mag-Ox 400) [address] [place] [address] Magnesium oxide Center [id number] elemental magnesium Dose=____mg magnesium oxide (___mg elemental magnesium) Tums Notes: (Same As: Inactive [place] as Tums) Calcium 2016 Medical Carbonate 500 mg Center = 200 mg elemental calcium Dose = mg calcium carbonate ( mg elemental calcium) remove patch 1 patch, Route: No Longer 02/13/ H [place] TOP, Bedtime, Active 2015 Medical Drug form: Center ERFILM, Start date: 02/13/16 21:00:00 CDT, Stop date: 02/15/16 0:01:00 CDT heparin Notes: porcine No Longer [facility] heparin Active 2016 [facility] Dilaudid [facility]: [facility] as [facility] Oxycodone Notes: (Same as: No Longer [facility] Hydrochloride 5 Roxicodone) Active 2015 Medi rajan MG Oral Tablet Center influenza virus Notes: (Same as: Inactive [facility] vaccine, Fluzone 2016 Medical inactivated Quadrivalent, [place] Fluarix Quadrivalent) For 3 years of age and older (0.5 mL IM) Shake well before use Valium Notes: (Same as: No Longer [place] Valium) Active 2015 [facility] influenza virus Notes: (Same as: Inactive [facility] vaccine, Fluzone 2016 [facility] inactivated Quadrivalent, [place] Fluarix Quadrivalent) For 3 years of age and older (0.5 mL IM) Shake well before use Naloxone Notes: Same as Inactive [facility] Narcan 2016 [facility] Flumazenil Notes: (Same as: Inactive [facility] Romazicon) 2016 [facility] Hydromorphone Notes: Same as Inactive [facility] Dilaudid 2016 [facility] Ondansetron Notes: (Same as: Inactive [facility] Zofran) 2016 Medical MEDICATION WASTE Center Product Size: 4 mg Product Wasted: _0_ mg esmolol Notes: (Same as: Inactive [place] as Brevibloc) 2016 Medical [place] Hydralazine Notes: (Same as: Inactive [facility] Apresoline) Push 2016 Medical over 5 minutes Center Metoprolol Notes: (Same as: Inactive [facility] Lopressor) Push 2016 Medical over 2 minutes Center Labetalol 10 mg, 2 mL, Inactive [facility] Route: IVP, Drug 2016 Medical form: INJ, Center Q5Min, Dosing Weight 100, kg, PRN Elevated BP, Start date: 02/13/16 10:06:00 CDT, Duration: 5 doses or times, Stop date: Limited # of times ANES Enalaprilat Notes: (Same as: Inactive 02/12 [place] Vasotec-IV) 2016 Medical Center Pneumovax 23 Notes: (Same as: Inactive [facility] Pneumovax 23) 2016 Medical Refrigerate Center Ativan Notes: (Same as: No Longer [place] Ativan) Active 2016 Medical Center Isolyte S (PH Notes: (Same as: No Longer [place] 7.4) 1000 mL Isolyte S PH Active 2015 Medica l 1,000 mL 7.4) Center influenza virus Notes: (Same as: Inactive [place] vaccine, Fluzone 2016 Medical inactivated Quadrivalent, Center Fluarix Quadrivalent) For 3 years of age and older (0.5 mL IM) Shake well before use Lidocaine 0.05 1 patch, Route: No Longer [place] MG/MG TOP, Daily, Drug Active 2015 Medical Transdermal form: FILM, Center Patch apply to L chest wall at site of maximal tenderness, Priority: Stat, Start date: 02/13/16 9:00:00 CDT, Duration: 30 day, Stop date: 03/13/16 9:00:00 PERSONAL CHEF Nicotine Notes: (Same as: [place] Longer [place] Habitrol) Active 2016 Medical "Remove old Center patch before application of new patch" WASTE: F/P - P Waste Black; E - P Waste Black pneumococcal Notes: (Same as: Inactive [facility] capsular Pneumovax 23) 2016 Medical polysaccharide Refrigerate Cente r type 1 vaccine / pneumococcal capsular polysaccharide type 10A vaccine / pneumococcal capsular polysaccharide type 11A vaccine / pneumococcal capsular polysaccharide type 12F vaccine / pneumococcal capsular polysacchar Calcium Chloride Notes: WASTE: Inactive [place] F/P - Sink; E - 2016 Medical [facility] Bin Lisinopril Notes: (Same as: No Longer [place] Prinivil, Active 2015 Medical Zestril) Center Zofran Notes: (Same as: Inactive [place] as Zofran) 2016 Medical MEDICATION WASTE Center Product Size: 4 mg Product Wasted: ___ mg Dilaudid Notes: (Same as: [place] Dilaudid) 2016 Medical Center Lovenox Notes: (Same as: [place] Lovenox) Active 2016 Medical Center Zofran Notes: (Same as: Inactive [place] Zofran) 2016 Medical MEDICATION WASTE Center Product Size: 4 mg Product Wasted: ___ mg Dilaudid Notes: Same [place] Dilaudid 2016 Medical Center Fentanyl 50 microgram, Inactive [place] Route: IV, ONCE, 2015 Medical Dosing Weight Center 100, kg, Start date: 02/12/16 19:14:00 CDT, Stop date: 02/12/16 19:14:00 CDT Fentanyl 100 [place]gram, [place] Route: IV, ONCE, 2015 Medical Dosing Weight Center 100, kg, Start date: 02/12/16 19:13:00 CDT, Stop date: 02/12/16 19:13:00 CDT Ancef 1 gm, Route: IV, Inactive [place] as ONCE, Dosing 2015 Medical Weight 100, kg, Center Start date: 02/12/16 19:13:00 CDT, Stop date: 02/12/16 19:13:00 CDT Lisinopril 10 mg, PO, No Longer [place] Daily, 0 Active 2015 Medical Refill(s) Center Labetalol 160; hold for No Longer [place] HR < 70, Start Active 2015 Medical date: 02/12/16 Center 17:33:00 CDT, Stop date: 03/13/16 17:32:00 PERSONAL CHEF Zofran Notes: (Same as: Inactive [place] Zofran) 2016 Medical MEDICATION WASTE Center Product Size: 4 mg Product Wasted: ___ mg multivitamin Notes: (Same No Longer [place] as:Thera) Active 2015 Medical WASTE: F/P - Center Black; E - Municipal Trash Bin Take with food. Thiamine Notes: (Same As: No Longer [place] Vitamin B1) Active 2015 Medical Center Folic Acid Notes: (Same as: No Longer [place] Folvite) Active 2015 Medical Center Valium Notes: (Same as: [place] Valium) WASTE: Active 2015 Medical F/P - Black; E - Center White/Blue [place] PH-7.4 Notes: (Same as: Inactive 02/11 [place] (Bolus) IV [place]te S PH 2016 Medical 7.4) Center Docusate Sodium Notes: (Same as: No Longer 02/11 [place] 100 MG Oral Colace) (Do Not Active 2015 [facility] rajan Capsule Crush) Center Dilaudid 1 mg, Route: Inactive [place] IVP, ONCE, 2016 Medical Dosing Weight Center 100, kg, Priority: STAT, Start date: 02/12/16 16:15:00 CDT, Stop date: 02/12/16 16:15:00 CDT Epinephrine 0.01 Notes: (Same as: No Longer 01/15 [place] MG/ML / Xylocaine Active 2015 Medical Lidocaine w/Epinephrine) Center Hydrochloride 10 MG/ML Injectable Solution Zofran 4 mg, Route: Inactive [place] IVP, Drug form: 2016 Medical INJ, ONCE, Center Dosing Weight 100, kg, Priority: STAT, Start date: 02/12/16 14:46:00 CDT, Stop date: 02/12/16 14:46:00 CDT Dilaudid 0.5 mg, Route: [place] IVP, ONCE, 2016 Medical Dosing Weight Center 100, kg, Priority: STAT, Start date: 02/12/16 14:45:00 CDT, Stop date: 02/12/16 14:45:00 CDT [place] S PH-7.4 Notes: (Same as: Inactive 02/11 [place] (Bolus) IV Is[place]te S PH 2016 Medical 7.4) Center [place] S (PH Notes: (Same as: No Longer [place] 7.4) 1000 mL [place]te S PH Active 2015 Medica l 1,000 mL 7.4) Center tramadol Notes: Not to [place]er [place] hydrochloride 50 exceed Active 2015 Medical MG Oral Tablet 400mg/day. (Same Center As: Ultram) Oxycodone Notes: (Same as: No Longer [place] Hydrochloride 5 Roxicodone) Active 2015 Medi rajan MG Oral Tablet Center Lyrica Notes: Same as No Longer [place] Lyrica Active 2016 [facility] Tylenol Notes: Max No Longer [place] acetaminophen Active 2015 Medical 4000 mg/day (4 Center gm/day). (Same as: Tylenol Extra Strength) iodixanol Notes: (Same as: [place] Visipaque). 2016 Medical WASTE: F/P - Center Black; E - Municipal Trash Bin Saline Flush Notes: (Same as: No Longer [place] 0.9% BD Posiflush) Active 2015 [facility] Center Allergies, Adverse Reactions, Alerts No Known Medication Allergies Immunizations Immunization Date Site Status Last Comments Source Given Updated influenza virus [facility] [place], [address] [place] [address] inactivated Center,[facility] pneumococcal Left completed Tony Jermaine s 23-valent [address] [place] [address] vaccine [place] Results Order Name Results Value Reference Date Interpretation Comments Ana Lilia rce Range CARDIAC Total CK 41 12 - 191 05/12 ENZYMES /2016 [facility] CARDIAC Troponin-I <0.02 0.00 - 05/12 ENZYMES 0.40 [facility] CARDIAC Troponin-I <0.02 0.00 - 05/11 ENZYMES 0.40 [facility] CARDIAC Total CK 38 12 - 191 05/11 ENZYMES /2017 [facility] ELECTROLYT AGAP 13.2 10.0 - 05/05 ES 20.0 [facility] ELECTROLYT eGFR 101 05/05 Result ES /2016 Comment: The [facility] eGFR is calculated using the CKD-EPI formula. In most young, healthy individuals the eGFR will be >90 mL/min/1.73m2 . The eGFR declines with age. An eGFR of 60-89 may be normal in some populations, particularly the elderly, for whom the CKD-EPI formula has not been extensively validated. Use of the eGFR is not recommended in the following populations:< br/>
Martine viduals with unstable creatinine concentration s, including patients and those with serious co-morbid conditions.<b r/>
Patie nts with extremes in muscle mass or diet.

The data above are obtained from the National Kidney Disease Education Program (NKDEP) which additionally recommends that when the eGFR is used in patients with extremes of body mass index for purposes of drug dosing, the eGFR should be multiplied by the estimated BMI. ELECTROLYT Calcium Lvl 9.3 8.5 - 10.5 05/05 [facility] ELECTROLYT CO2 27 24 - 32 05/05 ES [facility] ELECTROLYT Chloride Lvl 101 95 - 109 05/05 ES [facility] ELECTROLYT Potassium 4.2 3.5 - 5.1 05/05 ES Lvl /2016 [facility] ELECTROLYT Sodium Lvl 137 135 - 145 05/05 ES [facility] ELECTROLYT Creatinine 0.80 0.50 - 05/05 ES Lvl 1.40 [facility] ELECTROLYT BUN 11 7 - 22 05/05 [facility] ELECTROLYT Glucose Lvl 91 70 - 99 05/05 [facility] HEMATOLOGY MPV 10.0 7.4 - 10.4 05/05 [facility] HEMATOLOGY MCH 28.7 27.0 - 05/05 MH 31.0 [facility] HEMATOLOGY MCHC 33.1 32.0 - 05/05 MH 36.0 [facility] HEMATOLOGY RDW 13.5 11.5 - 05/05 MH 14.5 [facility] HEMATOLOGY Platelet 325 133 - 450 05/05 [facility] HEMATOLOGY Hgb 13.4 14.0 - 05/05 MH 18.0 [facility] HEMATOLOGY RBC 4.67 4.70 - 05/05 MH 6.10 [facility] HEMATOLOGY WBC 8.7 3.7 - 10.4 05/05 [facility] HEMATOLOGY Hct 40.5 42.0 - 05/05 MH 54.0 2017 [facility] HEMATOLOGY MCV 86.7 80.0 - 05/05 MH 94.0 [facility] HEMATOLOGY Basophils # 0.1 0.0 - 0.2 05/05 [facility] HEMATOLOGY Monocytes # 1.4 0.0 - 0.8 05/05 [facility] HEMATOLOGY Eosinophils 0.4 0.0 - 0.5 05/05 MH # /2016 [facility] HEMATOLOGY Segs 31.4 45.0 - 05/05 MH 75.0 /2016 [facility] HEMATOLOGY Lymphocytes 47.1 20.0 - 05/05 MH 40.0 [facility] HEMATOLOGY Monocytes 16.1 2.0 - 12.0 05/05 [facility] HEMATOLOGY Lymphocytes 4.1 1.0 - 5.5 05/05 # /2017 [facility] HEMATOLOGY Basophils 1.1 0.0 - 1.0 05/05 [facility] HEMATOLOGY Segs-Bands # 2.7 1.5 - 8.1 05/05 [facility] HEMATOLOGY Eosinophils 4.3 0.0 - 4.0 05/05 [facility] CHEM PANEL BUN 8 7 - 22 03/31 [facility] CHEM PANEL Potassium 4.6 3.5 - 5.1 03/31 [facility] Lvl [facility] CHEM PANEL Creatinine 0.75 0.50 - 03/31 [facility] Lvl 1.40 [facility] CHEM PANEL Sodium Lvl 138 135 - 145 03/31 [facility] CHEM PANEL Chloride Lvl 103 95 - 109 03/31 [facility] CHEM PANEL CO2 27 24 - 32 03/31 [facility] CHEM PANEL Calcium Lvl 9.0 8.5 - 10.5 03/31 Jermaine [facility] CHEM PANEL eGFR 103 03/31 Result Comment: The Medical eGFR is Center calculated using the CKD-EPI formula. In most young, healthy individuals the eGFR will be >90 mL/min/1.73m2 . The eGFR declines with age. An eGFR of 60-89 may be normal in some populations, particularly the elderly, for whom the CKD-EPI formula has not been extensively validated. Use of the eGFR is not recommended in the following populations:< br/>
Martine viduals with unstable creatinine concentration s, including patients and those with serious co-morbid conditions.<b r/>
Patie nts with extremes in muscle mass or diet.

The data above are obtained from the National Kidney Disease Education Program (NKDEP) which additionally recommends that when the eGFR is used in patients with extremes of body mass index for purposes of drug dosing, the eGFR should be multiplied by the estimated BMI. CHEM PANEL Glucose Lvl 98 70 - 99 03/31 [facility] CHEM PANEL AGAP 12.6 10.0 - 03/31 [place] 20.0 [facility] HEMATOLOGY Basophils 0.7 0.0 - 1.0 03/31 [facility] HEMATOLOGY Eosinophils 4.7 0.0 - 4.0 03/31 s [facility] HEMATOLOGY Basophils # 0.1 0.0 - 0.2 03/31 [facility] HEMATOLOGY Segs-Bands # 3.2 1.5 - 8.1 03/31 [facility] HEMATOLOGY Lymphocytes 3.9 1.0 - 5.5 03/31 [place] [facility] HEMATOLOGY Monocytes 14.2 2.0 - 12.0 03/31 [facility] HEMATOLOGY Lymphocytes 44.4 20.0 - 03/31 [place] 40.0 [facility] HEMATOLOGY Eosinophils 0.4 0.0 - 0.5 03/31 s [facility] HEMATOLOGY Monocytes # 1.2 0.0 - 0.8 03/31 [facility] HEMATOLOGY Segs 36.0 45.0 - 03/31 [place] 75.0 [facility] HEMATOLOGY Platelet 316 133 - 450 03/31 [facility] HEMATOLOGY MPV 9.4 7.4 - 10.4 03/31 [facility] HEMATOLOGY MCH 30.7 27.0 - 03/31 [place] 31.0 [facility] HEMATOLOGY Hct 37.4 42.0 - 03/31 [place] 54.0 [facility] HEMATOLOGY RDW 14.8 11.5 - 03/31 [place] 14.5 [facility] HEMATOLOGY MCHC 33.2 32.0 - 03/31 [place] 36.0 [facility] HEMATOLOGY MCV 92.5 80.0 - 03/31 [place] 94.0 [facility] HEMATOLOGY WBC 8.8 3.7 - 10.4 03/31 [facility] HEMATOLOGY RBC 4.04 4.70 - 03/31 [place] 6.10 [facility] HEMATOLOGY Hgb 12.4 14.0 - 16 [place] 18.0 [facility] ELECTROLYT AGAP 14.2 10.0 - 03/30 [place] ES 20.0 2016 [facility] ELECTROLYT eGFR 91 03/30 Result [facility] Comment: The Medical eGFR is Center calculated using the CKD-EPI formula. In most young, healthy individuals the eGFR will be >90 mL/min/1.73m2 . The eGFR declines with age. An eGFR of 60-89 may be normal in some populations, particularly the elderly, for whom the CKD-EPI formula has not been extensively validated. Use of the eGFR is not recommended in the following populations:< br/>
Martine viduals with unstable creatinine concentration s, including patients and those with serious co-morbid conditions.<b r/>
Patie nts with extremes in muscle mass or diet.

The data above are obtained from the National Kidney Disease Education Program (NKDEP) which additionally recommends that when the eGFR is used in patients with extremes of body mass index for purposes of drug dosing, the eGFR should be multiplied by the estimated BMI. ELECTROLYT Calcium Lvl 8.8 8.5 - 10.5 03/30 Jermaine as [facility] ELECTROLYT Potassium 4.2 3.5 - 5.1 03/30 [facility] ES Lvl /2015 [facility] ELECTROLYT Sodium Lvl 139 135 - 145 03/30 [facility] ELECTROLYT Creatinine 0.94 0.50 - 03/30 [facility] ES Lvl 1.40 [facility] ELECTROLYT Chloride Lvl 104 95 - 109 03/30 [place] [facility] ELECTROLYT CO2 25 24 - 32 03/30 [facility] ELECTROLYT Glucose Lvl 132 70 - 99 03/30 [facility] /2015 [facility] ELECTROLYT BUN 8 7 - 22 03/30 [facility] /2015 [facility] HEMATOLOGY Eosinophils 0.4 0.0 - 0.5 03/30 [place] # /2015 [facility] HEMATOLOGY Lymphocytes 3.8 1.0 - 5.5 03/30 [place] # /2015 [facility] HEMATOLOGY Monocytes # 0.8 0.0 - 0.8 03/30 [place] /2015 [facility] HEMATOLOGY Segs 30.7 45.0 - 03/30 [place] 75.0 [facility] HEMATOLOGY Lymphocytes 52.1 20.0 - 03/30 [place] 40.0 [facility] HEMATOLOGY Monocytes 11.5 2.0 - 12.0 03/30 /2015 [facility] HEMATOLOGY Eosinophils 5.2 0.0 - 4.0 03/30 [place] /2015 [facility] HEMATOLOGY Segs-Bands # 2.2 1.5 - 8.1 03/30 MH [facility] HEMATOLOGY Basophils 0.5 0.0 - 1.0 03/30 [facility] HEMATOLOGY MPV 9.3 7.4 - 10.4 03/30 [facility] HEMATOLOGY WBC 7.3 3.7 - 10.4 03/30 [facility] HEMATOLOGY RBC 3.92 4.70 - 03/30 [place] 6.10 [facility] HEMATOLOGY Hct 36.4 42.0 - 03/30 54.0 [facility] HEMATOLOGY MCV 92.8 80.0 - 03/30 [facility] 94.0 [facility] HEMATOLOGY Hgb 12.0 14.0 - 03/30 18.0 [facility] HEMATOLOGY RDW 15.3 11.5 - 03/30 [facility] 14. [facility] HEMATOLOGY Platelet 296 133 - 450 03/30 [facility] HEMATOLOGY MCH 30.5 27.0 - 03/30 31.0 [facility] HEMATOLOGY MCHC 32.8 32.0 - 03/30 36.0 [facility] ELECTROLYT AGAP 10.5 10.0 - 03/29 [facility] ES 20.0 [facility] ELECTROLYT eGFR 107 03/29 Result [facility] Comment: The Medical eGFR is Center calculated using the CKD-EPI formula. In most young, healthy individuals the eGFR will be >90 mL/min/1.73m2 . The eGFR declines with age. An eGFR of 60-89 may be normal in some populations, particularly the elderly, for whom the CKD-EPI formula has not been extensively validated. Use of the eGFR is not recommended in the following populations:< br/>
Martine viduals with unstable creatinine concentration s, including patients and those with serious co-morbid conditions.<b r/>
Patie nts with extremes in muscle mass or diet.

The data above are obtained from the National Kidney Disease Education Program (NKDEP) which additionally recommends that when the eGFR is used in patients with extremes of body mass index for purposes of drug dosing, the eGFR should be multiplied by the estimated BMI. ELECTROLYT CO2 27 24 - 32 03/29 [facility] ELECTROLYT Calcium Lvl 8.9 8.5 - 10.5 03/29 [facility] ELECTROLYT BUN 8 7 - 22 03/29 Medical Center ELECTROLYT Glucose Lvl 89 70 - 99 03/29 Medical Center ELECTROLYT Creatinine 0.69 0.50 - 03/29 [place] ES Lvl 1.40 /2015 [facility] Center ELECTROLYT Potassium 4.5 3.5 - 5.1 03/29 [facility] ES Lvl /2015 Medical Center ELECTROLYT Sodium Lvl 139 135 - 145 03/29 Medical Center ELECTROLYT Chloride Lvl 106 95 - 109 03/29 [place] ES [facility] HEMATOLOGY Basophils # 0.1 0.0 - 0.2 03/29 [place] [facility] HEMATOLOGY Eosinophils 0.4 0.0 - 0.5 03/29 [place] [facility] HEMATOLOGY Monocytes # 1.5 0.0 - 0.8 03/29 a [facility] HEMATOLOGY Lymphocytes 4.1 1.0 - 5.5 03/29 [place] [facility] HEMATOLOGY Segs-Bands # 3.1 1.5 - 8.1 03/29 [facility] HEMATOLOGY Eosinophils 4.4 0.0 - 4.0 03/29 a s [facility] HEMATOLOGY Lymphocytes 44.3 20.0 - 03/29 [place] 40.0 [facility] HEMATOLOGY Basophils 1.0 0.0 - 1.0 03/29 [facility] HEMATOLOGY Monocytes 16.4 2.0 - 12.0 03/29 [facility] HEMATOLOGY Segs 33.9 45.0 - 03/29 [place] 75.0 [facility] HEMATOLOGY Platelet 285 133 - 450 03/29 [facility] HEMATOLOGY MPV 9.4 7.4 - 10.4 03/29 [facility] HEMATOLOGY WBC 9.2 3.7 - 10.4 03/29 [facility] HEMATOLOGY MCH 30.7 27.0 - 03/29 [place] 31.0 [facility] HEMATOLOGY MCV 92.7 80.0 - 03/29 [place] 94.0 [facility] HEMATOLOGY RDW 14.9 11.5 - 03/29 [place] 14.5 [facility] HEMATOLOGY MCHC 33.1 32.0 - 03/29 [place] 36.0 /2015 [facility] HEMATOLOGY Hgb 11.3 14.0 - 03/29 [place] 18.0 /2015 [facility] HEMATOLOGY Hct 34.0 42.0 - 03/29 [place] 54.0 /2015 [facility] HEMATOLOGY RBC 3.67 4.70 - 03/29 [place] 6.10 /2015 [facility] HEMATOLOGY Basophils # 0.1 0.0 - 0.2 03/28 [place] [facility] CHEM PANEL Phosphorus 3.6 2.5 - 4.5 03/26 [place] [facility] CHEM PANEL Magnesium 2.1 1.8 - 2.4 03/26 [place] Lvl [facility] HEMATOLOGY Atypical 0.0 <=0.0 % 03/26 [facility] Lymphs [facility] HEMATOLOGY Bands 0.0 0.0 - 11.0 03/26 [facility] HEMATOLOGY Plt Morph Normal 03/26 [facility] (03/26/16 4:18 AM) /2015 [facility] HEMATOLOGY RBC Morph Normal 03/26 [facility] (03/26/16 4:18 AM) /2015 [facility] HEMATOLOGY Polychrom Moderate None Seen 03/24 [place] *ABN* /2015 [facility] (03/24/16 1:00 AM) [place] HEMATOLOGY Plt Morph Normal 03/24 [facility] (03/24/16 1:00 AM) [facility] IMMUNOLOGY Prealbumin 13.6 18.0 - 03/24 [place] 45.0 [facility] IMMUNOLOGY C-REACTIVE 49.4 <=2.9 mg/L 03/24 [place] PROTEIN /2015 [facility] BLOOD BANK Antibody Negative 03/18 [facility] RESULTS Scrn (03/18/16 6:23 AM) /2015 [facility] BLOOD BANK ABO/Rh A NEG 03/18 [place] RESULTS /2015 [facility] BLOOD BANK Antibody Negative 03/14 [place] RESULTS Scrn (03/14/16 2:11 AM) /2015 [facility] BLOOD BANK ABO/Rh A NEG 03/14 [place] RESULTS /2015 [facility] IMMUNOLOGY Prealbumin 18.3 18.0 - 03/09 [place] 45.0 [facility] IMMUNOLOGY C-REACTIVE 13.1 <=2.9 mg/L 03/09 [place] PROTEIN /2015 [facility] BLOOD BANK Antibody Negative 03/08 [place] RESULTS Scrn (03/08/16 12:42 AM) /2015 [facility] BLOOD BANK ABO/Rh A NEG 03/08 [facility] RESULTS [facility] CHEM PANEL Magnesium 2.2 1.8 - 2.4 03/08 [facility] CHEM PANEL Phosphorus 3.3 2.5 - 4.5 03/08 [facility] URINE AND UA <=1.0 0.1 - 1.0 03/07 [facility] STOOL Urobilinogen mg/dL [facility] URINE AND UA Sq Epi None Seen 03/07 [facility] STOOL [facility] URINE AND UA Leuk Est Negative Negative 03/07 [facility] STOOL (03/07/16 12:12 PM) /2015 [facility] URINE AND UA WBC 1 0 - 5 03/07 [facility] URINE AND UA Nitrite Negative Negative 03/07 [facility] (03/07/16 12:12 PM) [facility] URINE AND UA Blood Negative Negative 03/07 [facility] (03/07/16 12:12 PM) /2015 [facility] URINE AND UA Mucus Few /LPF None Seen 03/07 [facility] STOOL /LPF [facility] URINE AND UA RBC <1 0 - 2 03/07 [facility] URINE AND UA Protein Negative Negative 03/07 [facility] mg/dL mg/dL [facility] URINE AND UA Spec Grav 1.008 <=1.030 03/07 [facility] URINE AND UA Turbidity Clear Clear 03/07 [facility] (03/07/16 12:12 PM) [facility] URINE AND UA Color Yellow Yellow 03/07 [facility] STOOL *NA* Medical (03/07/16 12:12 PM) Cent er URINE AND UA Bili Negative Negative 03/07 [facility] STOOL *NA* [facility] (03/07/16 12:12 PM) Cent er URINE AND UA Ketones Negative Negative 03/07 [facility] STOOL mg/dL mg/dL [facility] URINE AND UA Glucose Negative Negative 03/07 [facility] STOOL mg/dL mg/dL [facility] URINE AND UA pH 7.5 5.0 - 8.0 03/07 [facility] [address] [place] [address] CHEM PANEL Magnesium 2.2 1.8 - 2.4 03/06 [facility] Planol [facility] CHEM PANEL Phosphorus 2.8 2.5 - 4.5 03/06 [place] /2015 [facility] HEMATOLOGY Anisocyte 1+ None Seen 03/06 [place] *ABN* /2015 Medical (03/06/16 12:41 AM) Cent er HEMATOLOGY Plt Morph Normal 03/06 [place] (03/06/16 12:41 AM) /2015 [facility] CHEM PANEL AST 38 0 - 37 02/27 [place] /2015 [facility] CHEM PANEL Alk Phos 149 39 - 136 02/27 [place] [facility] CHEM PANEL ALT 23 0 - 65 02/27 [place] /2015 [facility] CHEM PANEL Total 6.0 6.4 - 8.4 02/27 [facility] Protein [facility] CHEM PANEL Albumin Lvl 1.9 3.5 - 5.0 02/27 [place] [facility] CHEM PANEL Bili 0.3 0.0 - 1.0 02/27 [place] Indirect [facility] CHEM PANEL A/G Ratio 0.5 0.7 - 1.6 02/27 [place] [facility] CHEM PANEL Globulin 4.1 2.7 - 4.2 02/27 [place] [facility] CHEM PANEL Bili Total 0.6 0.2 - 1.3 02/27 [place] /2015 [facility] CHEM PANEL Bili Direct 0.3 0.0 - 0.3 02/27 [place] /2015 [facility] HEMATOLOGY Anti-Xa Low 0.21 02/27 [place] Molecular /2015 [facility] CARDIAC Total CK 238 12 - 191 02/26 [facility] ENZYMES /2015 [facility] CARDIAC Troponin-I <0.02 0.00 - 02/26 [place] ENZYMES 0.40 [facility] CARDIAC Troponin-T 0.019 0.000 - 02/26 [place] ENZYMES 0.100 [facility] CARDIAC CK MB Index 0.4 0.0 - 2.5 02/26 [facility] ENZYMES /2016 [facility] CARDIAC CK MB 1.0 0.5 - 3.6 02/26 [facility] ENZYMES /2015 [facility] MYOGLOBIN Myoglobin 61 25 - 72 02/26 [place] /2016 [facility] HEMATOLOGY Anti-Xa Low 0.20 02/25 [facility] Molecular /2016 [facility] BLOOD BANK RBC product Product available 02/24 [facility] RESULTS (02/25/16 12:09 AM) /2015 [facility] TOXICOLOGY Vanco Tr 19.3 02/23 [facility] TOXICOLOGY Vanco Tr TND 0900 02/23 [facility] PARATHYROI Ca Norm WB 1.04 1.05 - 02/23 [place] D PROFILE . [facility] PARATHYROI Ca Ion WB 1.05 1.05 - 02/23 D PROFILE 05.10 [facility] HEMATOLOGY Estimated % 2.8 0.0 - 7.5 02/21 [place] Lysis [facility] HEMATOLOGY G-value 17.8 5.0 - 11.6 02/21 [facility] HEMATOLOGY Max 78 52 - 71 02/21 [facility] HEMATOLOGY Angle Rapid 80 64 - 80 02/21 [facility] HEMATOLOGY K-time Rapid 0.8 0.6 - 2.3 02/21 [facility] HEMATOLOGY R-time Rapid 0.7 0.4 - 0.7 02/21 [facility] HEMATOLOGY [place] 0.5 02/21 [facility] HEMATOLOGY ACT (TEG) 113 86 - 118 02/21 [facility] Hospital BLOOD BANK RBC product Product available 02/21 [facility] RESULTS (02/22/16 10:30 AM) [facility] BLOOD BANK FFP product Product available 02/21 [facility] RESULTS (02/22/16 10:30 AM) /2015 [facility] HEMATOLOGY PT 14.0 12.0 - 02/21 [place] 14.7 [facility] HEMATOLOGY INR 1.06 0.85 - 02/21 [place] 1.17 [facility] HEMATOLOGY PTT 35.4 22.9 - 02/21 [place] 35.8 [facility] HEMATOLOGY Macrocyte 1+ None Seen 02/21 [place] *ABN* Medical (02/22/16 2:40 AM) Center PARATHYROI Ca Ion WB 1.06 1.05 - 02/21 [place] D PROFILE . [facility] PARATHYROI Ca Norm WB 1.08 1.05 - 02/21 [place] D PROFILE 05.10 [facility] HEMATOLOGY Macrocyte 1+ None Seen 02/20 [place] *ABN* Medical (02/21/16 2:46 AM) Center HEMATOLOGY Macrocyte 1+ None Seen 02/19 [place] *ABN* Medical (02/20/16 12:21 AM) [facility] PARATHYROI Ca Norm WB 1.09 1.05 - 02/19 [facility] D PROFILE 1. [facility] PARATHYROI Ca Ion WB 1.09 1.05 - 02/19 [facility] D PROFILE 1. [facility] HEMATOLOGY Anti-Xa Low 0.05 02/15 [facility] /2015 [facility] CHEM PANEL Bili Total 0.8 0.2 - 1.3 02/15 [facility] HEMATOLOGY PT 13.2 12.0 - 02/15 [place] 14.7 /2015 [facility] HEMATOLOGY INR 0.98 0.85 - 02/15 [place] 1.17 [facility] MOLECULAR HCV RNA [id number] 02/14 [facility] DIAGNOSTIC VirLoad /2015 [facility] MOLECULAR HCV RNA 7.1 02/14 [facility] DIAGNOSTIC Log10 [facility] IMMUNOLOGY Hep A IgM Negative Negative 02/14 [place] *NA* Medical (02/14/16 7:39 PM) Cente r IMMUNOLOGY Hep C Ab Positive 02/14 [place] *ABN* Medical (02/14/16 7:39 PM) Cente r IMMUNOLOGY Hep B Core Negative Negative 02/14 [place] IgM *NA* Medical (02/14/16 7:39 PM) Cente r IMMUNOLOGY Hep Bs Ag Negative Negative 02/14 [place] *NA* Medical (02/14/16 7:39 PM) Cente r IMMUNOLOGY HIV 1/2 Ab Negative Negative 02/14 [place] *NA* Medical (02/14/16 7:30 PM) Cente r IMMUNOLOGY HIV Ag/Ab Negative Negative 02/14 [facility] 4th Gen *NA* Medical (02/14/16 7:30 PM) Cente r IMMUNOLOGY HIV. Negative Negative 02/14 [place] *NA* Medical (02/14/16 7:30 PM) Cente r IMMUNOLOGY Hep Bs Ag Negative Negative 02/14 [place] *NA* Medical (02/14/16 7:30 PM) Cente r IMMUNOLOGY Hep C Ab Positive 02/14 [place] *ABN* Medical (02/14/16 7:30 PM) Cente r URINE CHEM U Chloride 14 02/12 [facility] URINE CHEM U Sodium 12 02/12 [facility] URINE CHEM U Potassium 83.7 02/12 [facility] URINE CHEM U Creatinine 187.00 02/12 [facility] CHEM PANEL Lactic Acid 1.5 0.5 - 2.2 02/12 [facility] CHEM PANEL Lactic Acid 1.9 0.5 - 2.2 02/12 [facility] CHEM PANEL Lactic Acid 4.8 0.5 - 2.2 02/12 [facility] Result(s) called to Priscila Viveros at 02/13/2016 02:19 by . Read back OK. HEMATOLOGY RBC Morph Normal 02/12 [facility] (02/13/16 12:37 AM) /2015 [facility] CHEM PANEL Osmolality 343 280 - 300 02/11 [facility] URINE AND UA Gran Cast 0-2 /LPF None Seen 02/11 [facility] STOOL /LPF /2015 [facility] URINE AND UA Amorph Occasional None Seen 02/11 [facility] s STOOL Carlyn /HPF /HPF /2015 [facility] URINE AND UA Bacteria None Seen None Seen 02/11 [facility] STOOL (02/12/16 3:18 PM) /2015 [facility] URINE AND UA RBC None Seen 0 - 2 02/11 [facility] STOOL (02/12/16 3:18 PM) /2015 [facility] URINE AND UA Sq Epi None Seen Few 02/11 [facility] STOOL (02/12/16 3:18 PM) /2015 [facility] URINE AND UA WBC None Seen None Seen 02/11 [facility] STOOL (02/12/16 3:18 PM) /2015 [facility] URINE AND UA Ketones Negative Negative 02/11 [facility] STOOL *NA* /2015 Medical (02/12/16 3:18 PM) Cente r URINE AND UA Protein 100 mg/dL Negative 02/11 [facility] STOOL mg/dL /2015 [facility] URINE AND UA Glucose Negative Negative 02/11 [facility] STOOL (02/12/16 3:18 PM) /2015 [facility] URINE AND UA 0.2 0.1 - 1.0 02/11 [facility] STOOL Urobilinogen /2015 [facility] URINE AND UA Blood Large Negative 02/11 [facility] STOOL *ABN* /2015 Medical (02/12/16 3:18 PM) Cente r URINE AND UA Bili Negative Negative 02/11 [facility] STOOL *NA* Medical (02/12/16 3:18 PM) Cente r URINE AND UA Leuk Est Negative Negative 02/11 [facility] STOOL (02/12/16 3:18 PM) /2015 [facility] Center URINE AND UA Nitrite Negative Negative 02/11 [facility] STOOL (02/12/16 3:18 PM) /2015 [facility] Center URINE AND UA pH 5.5 5.0 - 8.0 02/11 [facility] STOOL [facility] URINE AND UA Spec Grav 1.020 <=1.030 02/11 [facility] STOOL /2015 [facility] URINE AND UA Turbidity Clear Clear 02/11 [facility] STOOL (02/12/16 3:18 PM) /2015 [facility] URINE AND UA Color Yellow Yellow 02/11 [facility] STOOL *NA* Medical (02/12/16 3:18 PM) Cente r DRUG U Benzodia Negative Negative 02/11 [place] SCREEN Scr *NA* Medical (02/12/16 12:10 PM) Cent er DRUG U Phencyc Negative Negative 02/11 [facility] SCREEN Scr *NA* Medical (02/12/16 12:10 PM) Cent er DRUG U Opiate Scr Positive Negative 02/11 [place] SCREEN *ABN* Medical (02/12/16 12:10 PM) Cent er DRUG U Cannab Scr Positive Negative 02/11 [facility] SCREEN *ABN* Medical (02/12/16 12:10 PM) Cent er DRUG U Cocaine Negative Negative 02/11 [facility] SCREEN Scr *NA* Medical (02/12/16 12:10 PM) Cent er DRUG U Amph Scr Negative Negative 02/11 [place] SCREEN *NA* Medical (02/12/16 12:10 PM) Cent er DRUG U Britni Scr Negative Negative 02/11 [facility] SCREEN *NA* Medical (02/12/16 12:10 PM) Cent er DRUG UDS Note See Note 02/11 [place] SCREEN (02/12/16 12:10 PM) /2015 [facility] URINE CHEM U Potassium 56.5 02/11 [facility] URINE CHEM U Chloride 66 02/11 [facility] URINE CHEM U Sodium 33 02/11 [facility] URINE CHEM U Osmolality 521 300 - 800 02/11 [facility] HEMATOLOGY G-value 10.0 5.0 - 11.6 02/11 [facility] HEMATOLOGY Max 67 52 - 71 02/11 [facility] HEMATOLOGY K-time Rapid 1.2 0.6 - 2.3 02/11 [facility] HEMATOLOGY R-time Rapid 0.8 0.4 - 0.7 02/11 [facility] HEMATOLOGY Angle Rapid 74 64 - 80 02/11 [facility] HEMATOLOGY Split Point 0.6 02/11 [facility] HEMATOLOGY ACT (TEG) 121 86 - 118 02/11 [facility] HEMATOLOGY Estimated % 0.9 0.0 - 7.5 02/11 [facility] Lysis [facility] TOXICOLOGY Etoh (%) 0.247 02/11 [facility] TOXICOLOGY Ethanol Lvl 247 02/11 [facility] Pathology Reports No Data Provided for This Section Diagnostic Reports Report Value Date Source Shoulder series DX Study: 3 views of the left shoulder 7 [facility] History: Shoulder pain Comments: Normal bone mineralization. No acute fracture or dislocation. Metallic hardware transfixin g old fracture of the left clavicle. Metallic hardware transfixing multiple old left rib fractures. IMPRESSION: No acute fracture or dislocation. Spine lumbar 2 or 3 Patient Name: JOSE MONTANA 04/12/2016 [facility] views DX : 1960; Age: 56 years y/o Male MR: [id number] Study: 3 view examination of the lumbar spine da kirsten 04/12/2016. Clinical Indication: Pain with radiculopathy; Comparison: None 6 lumbar type vertebral bodi es. Abdominal aortic and bilateral iliac artery calcification. Plate and screw fixation of lower ribs noted. Mild to moderate degenerative changes are seen at L4-L5 with mild degenerative change at L5-L6. No fracture or ruiz bluxation. SL: [id number]-PC Clavicle DX EXAM: XR LEFT CLAVICLE 2 VIEWS 03/29/2016 [facility] DATE: 03/29/2016 at 1056 hours C enter INDICATION: Fracture COMPARISON: X-ray of the left clavicle on 2015. TECHNIQUE: AP and axial views of the clavicle FINDINGS: Plate and screw f ixation hardware of the mid to distal left clavicular fracture is unchanged. The mildly displaced left scapular fracture is unchanged. Multiple left rib fractures are again s een. The acromioclavicular and glenohumeral join ts are intact. No soft tissue abnormality is identified. IMPRESSION: Unchanged fixat ion hardware of the left clavicular fracture, with satisfactory alignment. Chest 1view DX EXAM: XR CHEST 1 VIEW 03/27/2016 [facility] DATE: 03/27/2016 1:17 [address] INDICATION: Chest tightness COMPARISON: Chest radiograph dated 03/26/2016 TECHNIQUE: AP chest FINDINGS: Lines, tubes and hardware: F ixation hardware is again seen overlying the left fourth, fifth, sixth, seventh, eighth and ninth ribs. Left clavicle fixation hardware is again seen. Lungs and pleura: No focal c onsolidation is identified. There is bibasilar subsegmental atelectasis. No significant pleural effusion is seen. No pneumothorax is identified. Heart and mediastinum: The h eart size is normal for technique. The mediastinal contours are normal. Bones: Multiple left-sided rib fractures status post fixation are seen. IMPRESSION: 1. Bibasilar subsegmental a telectasis. Few peripheral patchy opacities in the left lung likely related to contusions. Otherwise, lungs are clear. 2. Multiple left rib fractu res and left clavicular fracture with internal fixation of some of them. Chest 1view DX EXAM: XR CHEST 1 VIEW 03/26/2016 [facility] ed[facility] DATE: 03/26/2016 3:00 [address] [address] INDICATION: Abnormal chest sounds COMPARISON: 03/22/2016 FINDINGS: Posttraumatic and postsurgic al changes of the left chest wall and left clavicle are stable. The cardiomediastinal silhouette is stable. While evaluation is limited given semi-erect positioning, no disti nct pneumothorax is identifi ed. Patchy opacities in the lung bases, asymmetric to the left, are unchanged. IMPRESSION: 1. Stable exam. Femur series DX EXAM: XR XR RIGHT HIP 2 VIEW AND AP PELVIS 03/23 [facility] EXAM: XR RIGHT FEMUR [address] DATE: 03/23/2016 at 1542 hours INDICATION: Pain in limb COMPARISON: CT chest abdomen and pelvis of 02/11 TECHNIQUE: AP pelvis, 2 view hip, 2 views of the femur FINDINGS: Pelvis/Hip: No acute fractu re or malalignment is identified. Small acetabular and femoral head neck junction osteophytes are present. No soft tissue abnormality is identified. Femur: No acute fracture or malalignment is identified. No soft tissue abnormality is identified. IMPRESSION: No acute abnorm ality of the right hip or right femur. Mild osteoarthrosis of the right hip. Hip 2/3 views uni DX EXAM: XR XR RIGHT HIP 2 VIEW AND AP PELVIS 03/23/2016 [facility] EXAM: XR RIGHT FEMUR [address] DATE: 03/23/2016 at 1542 hours INDICATION: Pain in limb COMPARISON: CT chest abdomen and pelvis of 02/11 TECHNIQUE: AP pelvis, 2 view hip, 2 views of the femur FINDINGS: Pelvis/Hip: No acute fractu re or malalignment is identified. Small acetabular and femoral head neck junction osteophytes are present. No soft tissue abnormality is identified. Femur: No acute fracture or malalignment is identified. No soft tissue abnormality is identified. IMPRESSION: No acute abnorm ality of the right hip or right femur. Mild osteoarthrosis of the right hip. Chest 1view DX EXAM: XR CHEST 1 VIEW 03/22/2016 [facility] ed[facility] DATE: 03/22/2016 3:00 AM PERSONAL CHEF Cent er INDICATION: Abnormal chest sounds. FINDINGS: Comparison is made to yesterday. Again seen are numerous disp laced left-sided rib fractures, several of which have been transfixed by plates and screws. Plates and screws transfix the left clavicle. The cardiomediastinal silhou ette is stable. There is subsegmental atelectasis in the left lower lobe. A left pleural reaction extending from the apex down laterally to the base could be due to pleural hematomas, loculated fluid or pleural thickening. IMPRESSION: No change. Chest 1view DX EXAM: XR CHEST 1 VIEW 03/21/2016 [facility] ed[facility] DATE: 03/21/2016 3:00 AM PERSONAL CHEF Cent er INDICATION: Abnormal chest sounds. FINDINGS: Comparison is made to yesterday julito angela. The cardiomediastinal silhou ette is stable. Numerous left-sided rib fractures again seen, several of which have been transfixed by plates and screws. Plates and screws also transfix the left clavicle. There is a pleural reaction on the left extending from the apex and laterally to the base which could be due to pleural hematomas, thickening, and/or loculated fluid. This is stable. There is subsegment al atelectasis in the bilateral lower lobes, gre ater on the left. IMPRESSION: No change from yesterday morning. Clavicle DX EXAM: XR LEFT CLAVICLE 2 VIEWS 03/20/2016 [facility] EXAM: XR LEFT SCAPULA 2 VIEWS Ce nter DATE: 03/20/2016 9:40 AM PERSONAL CHEF INDICATION: Clavicular fracture COMPARISON: Chest x-ray 08/2015, CT chest 02/21/2016 TECHNIQUE: AP and axial views of the left clavicle. AP and scapular Y views of the left scapula FINDINGS: Plate and screw fixation at the posterior lateral aspects of the left 4th through 9th ribs again noted. Left 1st through 3rd rib fractures remain unchanged. Plate and screw fixation of the left clavicle is also noted in appropriat e alignment. The known mildly displaced left scapular fracture remains unchanged in alignment. The acromioclavicular joint and glenohumeral joint remains well aligned. No soft tissue abnormality noted. Please see dedicated chest x-ray for findings in the lungs. IMPRESSION: 1. Unchanged plate and scre w fixation of the left 4th through 9th ribs as well as plate and screw fixation of the left clavicle. 2. Unchanged mildly displaced left scapular fra cture. Scapula 2 views DX EXAM: XR LEFT CLAVICLE 2 VIEWS 03/20/2016 [facility] EXAM: XR LEFT SCAPULA 2 VIEWS Ce nter DATE: 03/20/2016 9:40 AM PERSONAL CHEF INDICATION: Clavicular fracture COMPARISON: Chest x-ray 08/2015, CT chest 02/21/2016 TECHNIQUE: AP and axial views of the left clavicle. AP and scapular Y views of the left scapula FINDINGS: Plate and screw fixation at the posterior lateral aspects of the left 4th through 9th ribs again noted. Left 1st through 3rd rib fractures remain unchanged. Plate and screw fixation of the left clavicle is also noted in appropriat e alignment. The known mildly displaced left scapular fracture remains unchanged in alignment. The acromioclavicular joint and glenohumeral joint remains well aligned. No soft tissue abnormality noted. Please see dedicated chest x-ray for findings in the lungs. IMPRESSION: 1. Unchanged plate and scre w fixation of the left 4th through 9th ribs as well as plate and screw fixation of the left clavicle. 2. Unchanged mildly displaced left scapular fra cture. Chest 1view DX EXAM: XR CHEST 1 VIEW 03/20/2016 [facility] ed[facility] DATE: 03/20/2016 3:00 AM PERSONAL CHEF Cent er INDICATION: Abnormal chest sounds. FINDINGS: Comparison is made to yesterday. Again seen are numerous disp laced left-sided rib fractures, several of which have been transfixed by plates and screws. Plates and screws also transfix the left clavicle. The cardiomediastinal silhou ette is stable. There is a persistent pleural reaction on the left extending from apex down laterally to the base which could be due to pleural hematomas, thickening and/or loculated fluid. This is stable. There is platelike atelectas is in the left lower lobe. The left upper lobe and right lung are clear. IMPRESSION: No change from yesterday morning. Chest 1view DX EXAM: XR CHEST 1 VIEW 03/19/2016 [facility] ed[facility] DATE: 03/19/2016 10:17 AM PERSONAL CHEF [place] [address] INDICATION: Abnormal chest sounds COMPARISON: 03/14/2016 TECHNIQUE: AP chest IMPRESSION: 1. Improved aeration of both lungs. 2. Other findings are without significant interv al changes. Chest 1view DX EXAM: XR CHEST 1 VIEW 03/14/2016 [facility] ed[facility] DATE: 03/14/2016 5:00 AM PERSONAL CHEF [place] [address] INDICATION: Tube placement/removal/reposition COMPARISON: 03/08/2016 FINDINGS: Multiple left rib fractures, post surgical changes the left clavicle, and postsurgical changes of 6th left ribs are unchanged. Skin lesly overlie the left chest. Exam rotated to the right. P leural thickening along the left chest wall likely posttraumatic. Silhouette is prominent. Scattered bilateral airspace opacities are present. While evaluation is limited giv en semi-erect positioning, n o distinct pneumothorax is identified. Feeding tube is been removed. IMPRESSION: 1. Removal of feeding tube. 2. Post traumatic and post surgical changes of the left chest wall, stable. 3. Mild scattered airspace opacities may be secondary to lower lung volumes. Edema or infectious process not excluded. Abdomen AP DX EXAM: XR ABDOMEN 1 VIEW 03/09/2016 [facility] DATE: 03/09/2016 at 0023 hours C enter INDICATION: Tube placement/removal/reposition ADDITIONAL INFORMATION: None. COMPARISON: 03/08/2016 at 1542 hours TECHNIQUE: Limited AP view of the abdomen for tube placement assessment. Number of images: 1 FINDINGS: Transesophageal feeding tube (tip): Tip is in the proximal stomach. No guidewire. Transesophageal suction tube (sidehole): None pr esent. Other tubes, lines and hardware: Unchanged. No other changes. IMPRESSION: 1. Tube positions as above. Abdomen AP DX EXAM: XR ABDOMEN 1 VIEW 03/08/2016 [facility] EXAM: XR ABDOMEN 1 VIEW Center DATE: 03/08/2016 2:25 PM PERSONAL CHEF INDICATION: Tube placement/removal/reposition COMPARISON: Abdominal radiograph on 03/04/2016 TECHNIQUE: Two AP radiographs of the abdomen [facility] consecutively. FINDINGS: Lines and tubes: On the init ial radiograph, a Dobbhoff feeding tube is seen with the tip overlying the distal esophagus at 1417 hours. On the final radiograph, the Dobbhoff feeding tube is seen overlyin g the stomach body in the radiograph at 1542 rajeev rs. Lower thorax: Left basilar s ubsegmental atelectasis is present. A left pleural effusion is again seen. Bowel: No abnormally dilated loops of bowel are seen. Solid organs: No abnormal ma ss or organomegaly seen. No abnormal calcifications found. Bones: Status post fixation of multiple left-love ed rib fractures. IMPRESSION: 1. Tube positioning as above. 2. Nonobstructive bowel gas pattern. 3. Left pleural effusion and left lung base sub segmental atelectasis. Abdomen AP DX EXAM: XR ABDOMEN 1 VIEW 03/08/2016 [facility] EXAM: XR ABDOMEN 1 VIEW Center DATE: 03/08/2016 2:25 PM PERSONAL CHEF INDICATION: Tube placement/removal/reposition COMPARISON: Abdominal radiograph on 03/04/2016 TECHNIQUE: Two AP radiographs of the abdomen valorie en consecutively. FINDINGS: Lines and tubes: On the init ial radiograph, a Dobbhoff feeding tube is seen with the tip overlying the distal esophagus at 1417 hours. On the final radiograph, the Dobbhoff feeding tube is seen overlyin g the stomach body in the radiograph at 1542 rajeev rs. Lower thorax: Left basilar s ubsegmental atelectasis is present. A left pleural effusion is again seen. Bowel: No abnormally dilated loops of bowel are seen. Solid organs: No abnormal ma ss or organomegaly seen. No abnormal calcifications found. Bones: Status post fixation of multiple left-love ed rib fractures. IMPRESSION: 1. Tube positioning as above. 2. Nonobstructive bowel gas pattern. 3. Left pleural effusion and left lung base sub segmental atelectasis. Chest 1view DX EXAM: XR CHEST 1 VIEW 03/08/2016 [facility] ed[facility] DATE: 03/08/2016 Center INDICATION: Trauma . Comparison is made with FINDINGS: Cardiomediastinal silhouette and life-support lines and postoperative changes are stable. There is a partially loculated left pleural effusion associated with multiple left rib fractures most of which have side plate and screws transfixing an. The left clavicular fracture has also been repaired. No pneumothorax is visualize d however a supine or semierect radiograph is suboptimal for that determination. An erect film of the chest is necessary in order to exclude small pneumothoraces.. There is p latelike atelectasis at the left lung base. Othe rwise the lungs are clear IMPRESSION: No significant interval change when compared to prior radiograph. Chest 1view DX EXAM: XR CHEST 1 VIEW 03/07/2016 [facility] ed[facility] DATE: 03/07/2016 10:33 AM PERSONAL CHEF Ce nter INDICATION: Coughing. FINDINGS: Comparison is made to March 06. Plates and screws transfix s everal healing left-sided rib fractures. Plates and screws transfix the left clavicle. The cardiomediastinal silhou ette is stable. A Dobbhoff feeding tube remains in place. There is a pleural reaction on the left extending from the apex down laterally to the base which could represent pleural thickening or loculated pleural fluid. There is platelike atelectasis in the bilateral lower lobes. IMPRESSION: No significant change from yesterday evening. Chest 1view DX EXAM: XR CHEST 1 VIEW 03/06/2016 [facility] ed[facility] DATE: 03/06/2016 4:37 PM [address] CHEF [place] [address] INDICATION: Crackles COMPARISON: 03/05/2016 at 0100 hours and 016 at 0642 hours TECHNIQUE: AP chest FINDINGS: Lines and tubes: Dobbhoff tu be placed with tube traveling below the level of left diaphragm and beyond the image border. Lungs and pleura: Bilateral perihilar and bibasilar opacities persist. Left effusion layers posteriorly. Extrapleural hematoma is seen subjacent to comminuted displaced left-sided rib fractures. The marya ierect position and portable technique limit assessment for the presence of pneumothorax. Heart and mediastinum: Cardi ac silhouette is enlarged. Mediastinal contours are stable. Perihilar haze is present. Bones: Status post ORIF of l eft clavicle and internal plate and screw fixation of sequential ribs the thoracic cage on the left. IMPRESSION: 1. Pulmonary venous hypertension. 2. Persistent bilateral alex hilar and bibasilar opacities are not significantly changed. 3. Slight increase in right lower lobe opacity near dome of diaphragm may indicate atelectasis or early infection. 4. Persistent left effusion. 5. Stable postsurgical deleon e of ORIF at left clavicle and sequential ribs of left thoracic cage. Chest 1view DX EXAM: XR CHEST 1 VIEW 03/05/2016 [facility] DATE: 03/05/2016 3:00 AM PERSONAL CHEF [place] [address] INDICATION: Abnormal chest sounds COMPARISON: Yesterday TECHNIQUE: AP chest FINDINGS: Stable feeding tub e coursing into the stomach and terminating outside the field of view. Stable enlarged cardiomediastinal silhouette. As before, there are postsurgical changes of multilevel l eft rib fixation with large adjacent pleural/extrapleural hematomas. There is left apical pleural capping. Difficult to evaluate for a superimposed pneumothorax due to semierect technique. Residual scat tered airspace opacities whi ch could be from evolving contusions, atelectasis or other airspace process. Unchanged skeletal structures. IMPRESSION: No significant change. Abdomen AP DX EXAM: XR ABDOMEN 1 VIEW 03/04/2016 [facility] DATE: 03/04/2016 6:48 PM PERSONAL CHEF [place] ter INDICATION: Tube placement/removal/reposition ADDITIONAL INFORMATION: None. COMPARISON: 03/04/2016 at 0827 hours TECHNIQUE: Limited AP view of the abdomen for tube placement assessment. Number of images: 1 FINDINGS: Transesophageal feeding tube tip: Feeding tube is terminating in the 2nd portion of duodenum. Transesophageal suction tube sidehole: None Other tubes and lines: None. No other changes. IMPRESSION: 1. Tube position as above. Abdomen AP DX EXAM: XR ABDOMEN 1 VIEW 03/04/2016 [facility] DATE: 03/04/2016 8:05 AM PERSONAL CHEF [place] [facility] INDICATION: Tube placement/removal/reposition COMPARISON: 03/03/2016 TECHNIQUE: Single AP view of the abdomen. 1 image(s) obtained. FINDINGS: Lines and tubes: Feeding tub e is stable in position with tip overlying the mid distal descending duodenum. Lower thorax: Partially visualized lower lung zo ne airspace opacities. Bowel: Nonobstructive bowel gas pattern. Mild to moderate colonic stool burden. Solid organs: No abnormal mass or organomegaly s een. Calcifications: No abnormal calcifications found . Bones: No acute abnormality. Other: None IMPRESSION: 1. Stable positioning of feeding tube, as above . 2. Nonobstructive bowel gas pattern. Chest 1view DX EXAM: XR CHEST 1 VIEW 03/04/2016 [facility] DATE: 03/04/2016 6:27 AM PERSONAL CHEF [place] ter INDICATION: Chest pain COMPARISON: Yesterday TECHNIQUE: AP chest FINDINGS: Stable feeding tub e is seen coursing into the stomach and terminating outside the field of view. Stable enlarged cardiomediastinal silhouette. As before, there are postsurgical changes of mult ilevel left rib fixation wit h large adjacent pleural/extrapleural hematomas. There is left apical pleural capping. Difficult to evaluate for a superimposed pneumothorax due to semierect technique. Resid ual scattered airspace opacities. Unchanged skel etal structures. IMPRESSION: No significant change. Chest 1view DX EXAM: XR CHEST 1 VIEW 03/03/2016 [facility] ed[facility] DATE: 03/03/2016 at 1539 hours. Center INDICATION: Chest pain COMPARISON: Chest radiograph dated 03/03/2016. TECHNIQUE: AP chest FINDINGS: Lines and tubes: There is an enteric tube in place with tip passing beyond the duelf-vs-hems into the abdomen.. Lungs and pleura: Extensive bilateral poorly defined airspace opacities are identified throughout the lungs. Multilevel calcific sulcus m ay represent hemothorax, atelectasis, infection, and/or layering pleural fluid. Heart and mediastinum: The heart size is stable. Bones: Multiple left-sided r ib open reduction-internal fixations are noted. There has also been an open reduction-internal fixation of the left clavicle. No acute bony abnormality is identified. IMPRESSION: 1. Patchy airspace opacitie s throughout the lungs, left greater the right, suggestive of contusions and/or atelectasis. These are similar in appearance compared to the prior exam. 2. Blunting of the left cos tophrenic sulcus may represent pneumothorax, atelectasis, infection and/or layering pleural fluid. Abdomen AP DX EXAM: XR ABDOMEN 1 VIEW 03/03/2016 [facility] DATE: 03/03/2016 11:17 AM PERSONAL CHEF Ce nter INDICATION: Tube placement/removal/reposition COMPARISON: 02/26/2016. TECHNIQUE: AP view of the abdomen. IMPRESSION: 1. Feeding tube tip projected over the 2nd port ion of the duodenum. 2. Other findings unchanged. Chest 1view DX EXAM: XR CHEST 1 VIEW 03/03/2016 [facility] DATE: 03/03/2016 3:00 AM PERSONAL CHEF [place] ter INDICATION: Abnormal chest sounds COMPARISON: 03/02/2016 TECHNIQUE: AP chest IMPRESSION: 1. Again seen are multiple l eft rib fractures with internal fixations of some of them as well as left clavicular fracture with internal fixation. 2. Patchy opacities again se en in the left lung suggestive of contusions and atelectasis. Small left pleural fluid which may represent hemothorax or effusion. 3. Cardiomediastinal silhouette is normal for te chnique. Chest 1view DX EXAM: XR CHEST 1 VIEW 03/02/2016 [facility] ed[facility] DATE: 03/02/2016 2:00 PM PERSONAL CHEF [place] ter INDICATION: Tube placement/removal/reposition COMPARISON: 03/02/2016 at 0114 FINDINGS: ET tube is been removed. NG tube is stable. Left thoracostomy tube is been removed. Post surgical changes to the left clavicle and left chest wall as well as multiple residual left rib fractures are stable. The cardiomediastinal silhou ette is stable. While evaluation is limited given semi-erect positioning, no distinct pneumothorax is identified. Pleural hematoma and scattered bilateral airspace opacities remain. IMPRESSION: 1. Removal of ET tube and left thoracostomy tub e. 2. Stable scattered bilateral alveolar opacitie s and left pleural hematoma. Chest 1view DX EXAM: XR CHEST 1 VIEW 03/02/2016 [facility] DATE: 03/02/2016 3:00 AM PERSONAL CHEF [place] ter INDICATION: Abnormal chest sounds COMPARISON: 03/01/2016 TECHNIQUE: AP chest IMPRESSION: 1. Endotracheal and NG tube are without interval changes. Again seen is a left thoracostomy tube. 2. Multiple left rib fractur es with internal fixation of some of the left ribs. Interval fixation of the left clavicular fracture again seen. 3. Cardiomediastinal silhouette is enlarged, unc hanged. 4. Patchy opacities again se en in the left lung suggestive of contusions. A small left pleural fluid which may be pneumothorax. While evaluation is limited given semi-erect positioning, no distinct pneumothorax is identified. Spine cervical wo MRI OF THE CERVICAL SPINE 03/01/2016 [facility] contrast MRI DATE: 03/31/2016 at 10:51 AM. Ce nter COMPARISON: CT cervical spine 02/12/2016. HISTORY: Fracture, rule out ligamentous injury. TECHNIQUE: Multiplanar MR imaging was pe rformed utilizing T1 and T2 weighting. FINDINGS: A well corticated concave deformities noted of the superior endplate of C7 with approximately 25% loss of height consistent with a chronic compression fracture. A chronic well-corticated fract ure or ununited apophysis of the spinous process of C7 is again noted. No acute fractures are noted. Mild fatty endplate change is noted at T3 C4 and C5-C6. There is no marrow edema to suggest acute fra cture. Mild spondylitic archer ges noted with small marginal osteophytes at C3-C4 and C5-C6. The ligamentous structures are intact. There is no ligamentous injuries. C2-C3: The intervertebral di sc is well maintained. There is no disc bulge or disc protrusion. There is no compromise of the spinal canal or the neural foramina. C3-C4: There is left-sided d isc protrusion and uncovertebral hypertrophy causing mild stenosis of the spinal canal, and mild left neural foraminal stenosis. C4-C5: The intervertebral di sc is well maintained. There is no disc bulge or disc protrusion. There is no compromise of the spinal canal or the neural foramina. Hypertrophy of the right facet joint is noted without neural foraminal encroachment. C5-C6: There is loss of disc height and a diffuse disc bulge indenting the ventral thecal sac causing mild to moderate stenosis of the spinal canal, and mild bilateral neural foraminal stenosis. C6-C7, C7-T1: The interverte bral discs are well maintained. There are no disc bulges or disc protrusions. There is no compromise of the spinal canal or neural foramina. The signal within the brainstem and visualized s caitlyn cord is normal. IMPRESSION: 1. Chronic compression defor mity of the superior endplate of C7 with approximately 25% loss of height. 2. No acute cervical injury. There is no acute fracture. There is no ligamentous injury. 3. 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 4. Left sided uncovertebral hypertrophy and disc protrusion at C3-C4 causing mild stenosis of the spinal canal, and mild left neural foraminal stenosis 5. Disc bulge at C5-C6 leadi ng to mild to moderate stenosis of the spinal canal, and mild bilateral neural foraminal stenosis. Chest 1view DX EXAM: XR CHEST 1 VIEW 03/01/2016 [facility] ed[facility] DATE: 03/01/2016 7:43 AM PERSONAL CHEF [place] ter INDICATION: Abnormal chest sounds COMPARISON: 02/29/2016 at 2110. TECHNIQUE: AP chest FINDINGS: Lines and tubes: ET tube, NG tube, left chest tu be are stable in position. Lungs and pleura: Left pleur al or extrapleural hematoma associated with multiple left-sided rib fractures. Trace left pneumothorax is less conspicuous on this exam. Hazy alveolar opacities, which can be related to atelectasis, pulmonary contu jazmine, or other acute airspace process. Heart and mediastinum: Stable mediastinal contou rs. Surgical fixation of multiple left rib fractures and left clavicle fracture. IMPRESSION: 1. No significant interval changes. Spine cervical 2 or EXAM: XR CERVICAL SPINE 2 VIEWS 03/01/2016 [facility] 3 view DX DATE: 03/01/2016 at 0528 hours C enter INDICATION: Fracture, abnormal prior CT examinat ion COMPARISON: CT of the C-spine from 02/12/2016 TECHNIQUE: AP and lateral r adiographs of the cervical spine show from the skull base through C6. DISCUSSION: Examination is l imited on the lateral radiograph due to patient positioning and overlying soft tissues. As a result, the compression deformity of the C7 vertebral body and mild anterior disc space widening at C6/C7 is not well seen. Upper cervical spine alignme nt is maintained. Again, multilevel degenerative disc disease and facet arthropathy is present, most evident at C5-C6. An endotracheal tube and ent aamir tube are partially imaged. There is left clavicular hardware which is partially evaluated. Left-sided rib fractures are again noted. IMPRESSION: 1. Limited evaluation, rich cially on lateral radiograph due to patient positioning. 2. As a result, the minimal compression deformity of the C7 vertebral body and widening of the anterior C6-C7 disc space is not seen. A cervical spine MRI has been ordered. Chest 1view DX EXAM: XR CHEST 1 VIEW 02/29/2016 [facility] ed[facility] DATE: 02/29/2016 7:00 PM PERSONAL CHEF [place] ter INDICATION: Line Reposition COMPARISON: 02/29/2016 at 1605. TECHNIQUE: AP chest FINDINGS: Lines and tubes: ET tube tip is 5.4 same above t he sonia. NG tube extends below the inferior border of the exam. Left chest tube demonstrates stable positioning. Lungs and pleura: Left pleur al or extrapleural hematoma associated with multiple left-sided rib fractures. Trace left pneumothorax. Hazy alveolar opacities, which can be related to atelectasis, pulmonary contusion, or other acute airspace process. Heart and mediastinum: Stable mediastinal contou rs. Surgical fixation of multiple left rib fractures and left clavicle fracture. IMPRESSION: 1. No significant changes. Chest 1view DX EXAM: XR CHEST 1 VIEW 02/29/2016 [facility] DATE: 02/29/2016 3:30 PM PERSONAL CHEF [place] ter INDICATION: Tube placement/removal/reposition COMPARISON: Previous Day FINDINGS: ET tube has been placed with tip above the sonia. NG tube coursing past the inferior field of view and superior left thoracostomy tube remain. Left basilar thoracostomy tube is been removed. Postsurgic al and posterior medical changes a left clavicle and left chest wall remain. Prominence of the cardiac si lhouette likely secondary to low lung volumes. Moderate bilateral alveolar opacities and left pleural effusion remain. IMPRESSION: 1. Intubation with tip of ET tube well above th e sonia. 2. Removal of left basilar thoracostomy tube. Other lines, tubes, and postsurgical changes stable. 3. Scattered bilateral alve olar opacities suggesting edema and/or pneumonia. Developing ARDS not excluded. Clavicle DX EXAM: XR LEFT CLAVICLE 2 VIEWS 02/28/2016 [facility] DATE: 02/28/2016 6:17 AM PERSONAL CHEF [place] ter INDICATION: Fracture COMPARISON: Left clavicle on 02/13/2016 and AP c hest on 02/28/2016 TECHNIQUE: AP and axial views of the clavicle FINDINGS: Unchanged malleab le plate and screws affixing the mid to distal left clavicular fracture. The hardware is intact without signs of failure. No additional fractures of the scapula or humerus ar e noted. The acromioclavicular and glenohumeral joint spaces are preserved. Multiple left-sided rib fracture status post fix ation. No soft tissue abnormality is identified. IMPRESSION: Satisfactory alignment of th e comminuted left clavicular fracture, status post internal fixation. Chest 1view DX EXAM: XR CHEST 1 VIEW 02/28/2016 [facility] DATE: 02/28/2016 3:00 AM PERSONAL CHEF [place] ter INDICATION: Abnormal chest sounds COMPARISON: 02/27/2016. TECHNIQUE: AP chest FINDINGS: Lines and tubes: NG tube, left chest tubes are s table. Lungs and pleura: There is p ersistent patchy alveolar opacity in the left lung, which can represent atelectasis as well as persistent changes related to contusion, infection. No pneumothorax given the limitation of a semiupright exam. Heart and mediastinum: Stable mediastinal contou rs. Multiple left rib fractures and left clavicle fr acture status post fixation. IMPRESSION: 1. No significant changes. Chest 1view DX EXAM: XR CHEST 1 VIEW 02/27/2016 [facility] DATE: 02/27/2016 2:28 PM PERSONAL CHEF [place] ter INDICATION: Apnea COMPARISON: 02/27/2016. TECHNIQUE: AP chest FINDINGS: Lines and tubes: Stable positioning of NG tube, 2 left chest tubes. Lungs and pleura: Patchy ileana eolar opacities, greater on the left, and may represent subsegmental atelectasis, residua of ARDS/edema, infection. Heart and mediastinum: Stable mediastinal contou rs. Other: Multiple left-sided r ib fractures status post fixation with associated pleural hematoma. Left clavicle fracture status post fixation. IMPRESSION: 1. No significant changes. Chest 1view DX EXAM: XR CHEST 1 VIEW 02/27/2016 [facility] DATE: 02/27/2016 3:00 AM PERSONAL CHEF [place] ter INDICATION: Abnormal chest sounds COMPARISON: Previous Day FINDINGS: ET tube removed. NG tube wit h side holes below the GE junction, left thoracostomy tube, post traumatic and postsurgical changes to the left clavicle and left ribs remain. There is prominence of the c ardiac silhouette. Scattered bilateral airspace opacities, predominantly in the left mid and lower lung with pleural hematoma along the left chest wall, stable. While evaluat ion is limited given semi-er ect positioning, no distinct pneumothorax is identified. IMPRESSION: 1. Stable lines, tubes, and postsurgical change s. 2. Asymmetric to the left a irspace opacities likely represent contusion and/or atelectasis. Component of edema not excluded. 3. Left retrocardiac opacity suggesting pleural fluid and atelectasis. Abdomen AP DX EXAM: XR ABDOMEN 1 VIEW 02/26/2016 [facility] DATE: 02/26/2016 2:59 PM PERSONAL CHEF [place] ter INDICATION: Tube placement/removal/reposition ADDITIONAL INFORMATION: None. COMPARISON: 02/25/2016 at 1233. TECHNIQUE: Limited AP view of the abdomen for tube placement assessment. Number of images: 1 FINDINGS: Other tubes and lines: 2 sep arate left-sided chest tubes are demonstrated with stable appearance of the prior exam. A left upper quadrant medical tube is present, likely a drain. A nasogastric tube is b een advanced with its distal tip over the proxim al gastric body.. Visualized bowel: Bowel gas pattern is nonobstructive where visualized. No free air is seen. Lung bases: Patchy airspace opacities are seen in the lung bases, likely from atelectasis and/or pneumonia.. Other: Multiple fenestrated plates and screws are in place fixating multiple left-sided ribs from prior thoracotomy. IMPRESSION: 1. Interim advancement of n asogastric tube. The tube tip is now within the proximal gastric body along with the proximal most side port. 2. Bowel gas pattern is nonobstructive where visualized. No free air is seen. 3. No other significant change. Chest 1view DX EXAM: XR CHEST 1 VIEW 02/26/2016 [facility] DATE: 02/26/2016 3:06 AM PERSONAL CHEF [place] ter INDICATION: Absent of breath sounds COMPARISON: Previous Day FINDINGS: Lines, tubes, and postsurgic al changes left clavicle and left chest wall are stable. The cardiomediastinal silhouette is stable. Pleural hematoma on the left and scattered bilateral airspace opacities remain. IMPRESSION: 1. Stable exam. Abdomen AP DX EXAM: XR ABDOMEN 1 VIEW 02/25/2016 [facility] DATE: 02/25/2016 11:02 AM PERSONAL CHEF Ce nter INDICATION: Abdominal distension ADDITIONAL INFORMATION: None. COMPARISON: 02/24/2016 TECHNIQUE: Supine AP view of the abdomen FINDINGS: Nasogastric tube is terminat ing in the proximal stomach with side port at or just proximal to the GE junction, this may be slightly advanced. 2 left chest tubes are parti ally imaged. Left lower chest thoracotomy changes partially imaged. No bowel dilation seen. A Freeman's catheter seen projecting over the pelv is. Bones are unchanged. IMPRESSION: 1. Tube position as above. Chest 1view DX EXAM: XR CHEST 1 VIEW 02/25/2016 [facility] DATE: 02/25/2016 at 1230 hours. Center INDICATION: Abnormal chest sounds COMPARISON: Chest radiograph dated 02/25/2016 at 0314 hours. TECHNIQUE: AP chest FINDINGS: The patient is status post o pen reduction fixation of several left-sided rib fractures. Lines and tubes: There is an endotracheal tube in place approximately 4.7 cm above the sonia. There are 2 left-sided thoracostomy tubes in place. There is an enteric tube in place with tip overlying the expected position of the gastric body; however, the side-port resides approximately at the level the GE junction. Lungs and pleura: There are persistent, diffus e poorly defined opacities throughout both lungs, which are stable to slightly improved compared to the prior exam. There is thickening of the p leural left chest wall, which is similar compared to the prior exam. Heart and mediastinum: The heart size is stable. Bones: No acute bony abnormality is identified. IMPRESSION: 1. Enteric tube in place wi th tip overlying the expected position of the gastric body; however, the side-port resides approximately at the level of the GE junction. Recommend advancement about 5 cm for optimal placement within the stomach. 2. Otherwise stable lines and tubes. 3. Persistent extensive loc ateral alveolar opacities which may represent pulmonary edema/ARDS and/or pneumonia, stable to slightly improved compared the prior exam. 4. Stable pleural hematoma along the left later al chest wall. Chest 1view DX EXAM: XR CHEST 1 VIEW 02/25/2016 [facility] DATE: 02/25/2016 3:12 AM PERSONAL CHEF [place] ter INDICATION: Tube placement/removal/reposition COMPARISON: Previous Day FINDINGS: Stable lines, tubes, and pos tsurgical changes. Cardiac silhouette is largely obscured by dense bilateral alveolar opacities. Pleural hematoma along the lateral left chest wall is similar.9 IMPRESSION: 1. Stable lines, tubes, and postsurgical change s. 2. Extensive bilateral alveolar opacities sugge sting edema and/or pneumonia. 3. Stable pleural hematoma along the lateral le ft chest wall. Chest 1view DX EXAM: XR CHEST 2 VIEWS 02/24/2016 [facility] DATE: 02/24/2016 3:01 PM PERSONAL CHEF [place] ter INDICATION: Tube placement/removal/reposition COMPARISON: Chest x-ray 02/23/2016 TECHNIQUE: Frontal view of the chest. Number of images: 1 FINDINGS: Lines and tubes: There has b een interval removal of the endotracheal tube. There is stable positioning of a left lower thoracostomy tube. The NG tube tip is in the fundus of the stomach with the side-port at the GE junction. Lungs and pleura: There is interval development of diffuse bilateral patchy areas of airspace disease with moderate pulmonary venous congestion and a small effusion on the left. There is a peripheral o pacity seen in the mid left lung that is increas ed since the prior study. Heart and mediastinum: The h eart size is normal for technique. The mediastinal contours are normal. Bones: Plate and screws are seen over several ri bs and the left clavicle. IMPRESSION: 1. Interval development of pulmonary venous congestion and pulmonary alveolar edema. 2. Increased loculated left pleural fluid. 3. Tubes as above. Abdomen AP DX EXAM: XR ABDOMEN 1 VIEW 02/24/2016 [facility] DATE: 02/24/2016 4:12 AM PERSONAL CHEF [place] ter INDICATION: Tube placement/removal/reposition COMPARISON: 11/22/2015 TECHNIQUE: Limited AP view of the abdomen for tube placement assessment. Number of images: 1 FINDINGS: Transesophageal suction tube sidehole at the GE junction and is unchanged. Other tubes and lines: Unchanged. No other changes. IMPRESSION: Tube positions as above. Chest 1view DX EXAM: XR CHEST 1 VIEW 02/23/2016 [facility] DATE: 02/23/2016 3:09 AM PERSONAL CHEF Cent er INDICATION: Abnormal chest sounds COMPARISON: 02/22/2016. FINDINGS: Post surgical changes in the left clavicle and left ribs with other multiple left rib fractures noted are stable. Subcutaneous gas overlying the left neck is stable. The cardiac silhouette is prominent. Hematoma associated with le ft-sided rib fractures, not significantly changed since the prior exam. No pneumothorax given the limitation of a semiup right exam. Left retrocardiac opacity, w hich can be due to singly or in combination compressive atelectasis, sequela of contusion or otherwise. There is mild subsegmental atelectasis in the right lung base. IMPRESSION: No significant interval changes since the prior exam. Abdomen AP DX EXAM: XR ABDOMEN 1 VIEW 02/22/2016 [facility] DATE: 02/22/2016 8:46 PM PERSONAL CHEF Cent er INDICATION: Tube placement/removal/reposition ADDITIONAL INFORMATION: None. COMPARISON: None. TECHNIQUE: Limited AP view of the abdomen for tube placement assessment. Number of images: 1 FINDINGS: Enteric suction tu be tip in the stomach with sidehole close to the GE junction. Basilar and apical chest tube seen postsurgical changes of the left lateral chest wall are noted. Partially visualized bilateral retrocardiac opacities. IMPRESSION: Enteric suction tube tip in the proximal stomach with sidehole close to the GE junction. Further advancement by 5 cm recommended. Chest 1view DX EXAM: XR CHEST 1 VIEW 02/22/2016 [facility] DATE: 02/22/2016 1842 hours Cente r INDICATION: Abnormal chest sounds COMPARISON: 02/22/2016 at 1503 hours FINDINGS: Post surgical changes on mul tiple left ribs and left clavicle are stable. Endotracheal tube tip projects over the mid trachea. Enteric tube tip projects over the stomach. 2 left chest tubes are in place. Cardiac silhouette is mildly prominent. There is some mild haziness overlying the left chest, asymmetric. Scattered bilateral atelectasis are noted. Improved loculated effusions tracking along the left chest wall. IMPRESSION: Stable postsurgical changes left chest wall, sta ble. Improved loculated effusions tracking along the left chest wall and overall left lung aeration. No new focal pulmonary opacity. Chest 1view DX EXAM: XR CHEST 1 VIEW 02/22/2016 [facility] DATE: 02/22/2016 2:43 PM PERSONAL CHEF Cent er INDICATION: Tube placement/removal/reposition COMPARISON: Multiple chest r adiographs dated February 22, 2016. CT chest with contrast dated February 21, 2016. TECHNIQUE: Supine AP chest FINDINGS: Lines, tubes and hardware: E ndotracheal tube is seen with the tip 4.5 cm proximal to sonia. Two left-sided chest tubes are seen, with one approaching the left lung apex, and one approaching the left annalise ng base. Postsurgical change s including orthopedic plates and screws of the posterolateral portions of the 4th through 9th ribs and left clavicle are once again seen. Lungs and pleura: There has been interval resolution of the previously noted complete opacification of the left hemithorax. Reticular thickening is seen throughout the left lung, predominantly within th e left lung base, which may represent subsegmental atelectasis or interstitial edema. Right basilar subsegmental atelectasis is also seen. Bilateral retrocardiac opacifications may represent layering pleural effusions or atelectasis. Heart and mediastinum: The c ardiomediastinal silhouette appears stable when accounting for differences in technique. The mediastinal contours are normal. Bones and soft tissues: Subc utaneous emphysema is seen along the inferolateral chest wall. Multiple left-sided rib fractures are once again seen within the left first through third ribs. Multiple left-s ided rib fractures have been repaired with orthopedic plates and screws as described above. IMPRESSION: 1. Endotracheal tube is seen with the tip 4.5 c m proximal to sonia. 2. Two left-sided chest tub es are seen, with one approaching the left lung apex, and one approaching the left lung base. 3. Left lung now appears ae rated following interval resolution of opacification of left hemithorax. 4. Reticular thickening is seen throughout the left lung, which may represent subsegmental atelectasis or interstitial edema. 5. Bilateral retrocardiac o pacifications may represent layering pleural effusions or atelectasis. 6. Subcutaneous emphysema i s seen along the inferolateral chest wall, corresponding to the air-fluid collection seen on the comparison CT. Chest 2 views DX EXAM: XR CHEST 2 VIEWS 02/22/2016 [facility] DATE: 02/22/2016 at 1320 hours. C enter INDICATION: INCORRECT NEEDLE COUNT COMPARISON: Chest radiograph dated 02/22/2016 at 0624 hours. TECHNIQUE: PA and lateral chest radiographs FINDINGS: Examination is limited secondary to suboptimal p ositioning. Lines and tubes: Two thoraco stomy tube are seen overlying the left hemithorax. An endotracheal tube is in place with tip residing approximately 1.1 cm above the sonia.. Lungs and pleura: Extensive opacity seen throughout the right lung, which may represent atelectasis and/or layering pleural fluid in the context of recent injury. . Heart and mediastinum: The h eart size is partially obscured. The visible portions are within normal limits. Bones: There is hardware pre sent consistent with open reduction and internal fixation are noted of multiple left-sided ribs ribs. IMPRESSION: 1. Examination is somewhat limited secondary to suboptimal positioning. 2. Given this, no unexpected radiopaque foreign body identified. Chest 1view DX EXAM: XR CHEST 1 VIEW 02/22/2016 [facility] DATE: 02/22/2016 3:00 AM PERSONAL CHEF [facility] er INDICATION: Abnormal chest sounds COMPARISON: 02/21/[address] FINDINGS: Multiple left rib fractures, post surgical changes of multiple ribs and left clavicle, and subcutaneous gas overlying the left chest wall are stable. There is prominence of the c ardiac silhouette. There is now near complete opacification the left hemithorax compared with previous radiograph. Minimal patchy alveolar opacities are present in the right chest. IMPRESSION: 1. Postsurgical changes left chest wall, stable . 2. Near complete opacificat ion of left hemithorax with combination of multiple large loculated pleural fluid collections and collapsed lung. Please see CT report. 3. Scattered patchy opaciti es right lung could represent edema and/or pneumonia. Chest w contrast CT EXAM: CT CHEST WITH CONTRAST 02/21/2016 [facility] DATE: 02/21/2016 2:33 PM PERSONAL CHEF [facility] er INDICATION: Respiratory distress TECHNIQUE: Volumetric CT acq uisition of the chest, following intravenous contrast. Axial, sagittal and coronal reconstructions. Axial MIP reconstructions were also obtained. IV Contrast: 75 mL of Omnipaque 350. DLP: 663 mGy-cm COMPARISON: CT chest abdomen pelvis with contras t dated February 12, 2016. FINDINGS: Lines and Tubes: Orthopedic plates and screws are seen in the left clavicle and posterolateral aspects of the left 4th through 9th ribs. Lower Neck: Subcutaneous so ft tissue emphysema is present. The visible portions of the thyroid are unremarkable. Heart and Great Vessels: Car diothoracic ratio measures 0.47. A small pericardial effusion is seen, measuring 7 mm in diameter. No mediastinal hematoma is identified. Trachea and bronchi: Trachea is patent and shifted to the right, likely secondary to mass effect from the left-sided pleural effusions. Lungs: There has been near t otal collapse of the left lower lobe, which is likely multifocal in nature in the setting of the adjacent loculated pleural effusions as well as mucous plugging, or less like ly aspiration, of the left l ower lobe bronchi. Areas of compressive atelectasis are also seen in the left upper lobe, which are likely predominantly due to mass effect from the loculated pleural effusions. Pleura: Multiple loculated p leural effusions are seen on the left with average HU density measuring between -5 and 18. These effusions may be exudative in response to inflammation and may also represent areas of resolving hemothor ax. Large left-sided hydropneumothorax is seen in the area of the lingula, which was previously a small pneumothorax on the comparison study. There is suggestion that the hyd ropneumothorax communicates with the air-fluid collection within the posterolateral chest wall. Lymph Nodes: Benign-appearin g 1.2 cm mediastinal lymph node is seen (image 84), which is likely reactive in nature. No hilar, mediastinal, axillary or internal mammary lymphadenopathy. Upper abdomen: The visualized portions are unre markable. Bones and Soft Tissues: There is a newly identified air-fluid collection within the posterior lateral aspect of the chest wall measuring 8.3 cm x 3.0 cm x 8.4 cm (AP x transverse x craniocaudal). Its average density is -5 HU, which may be artificially de creased by artifact from the adjacent orthopedic hardware. This collection may represent seroma or hematoma in the setting of trauma and status post internal fixation of mult iple rib fractures. Given th at its density is lower than expected for simple or complex fluid, the presence of chyle is also a consideration. There is suggestion that the collection communicates with th e pleural cavity, and by ext ension the hydropneumothorax, indicating that the presence of air may be an extension is cavity as opposed to resulting as a result of developing abscess. Despite this consideration, abscess is not excluded. There is an additional newly identified complex fluid density collection measuring 10.0 x 7.2 cm posteromedially to the left scapula (axial image 28). This area may represent a hematoma in the setting o f trauma, however adjacent p ockets of air make a developing abscess also a consideration. Diffuse subcutaneous soft ti ssue emphysema is seen in the anterior portions left neck, as well as posterior and lateral aspects of the left thorax. Multiple left-sided fracture s are once again seen including a minimally displaced comminuted left scapular fracture and multiple fractures of the left 1st through 11th ribs. The previously noted superio r endplate compression fract ure of the superior margin of T3 and nondisplaced fracture of the transverse process of T3 are once again seen. No other fractures are seen. Orthopedic plates and screws are seen in the left clavicle an d posterolateral aspects of the left 4th through 9th ribs. IMPRESSION: 1. Air-fluid collection wit hin the posterior lateral aspect of the chest wall which may represent seroma or hematoma in the setting of trauma and internal fixation of multiple rib fractures. Abscess is also a consideration, howev er there is suggestion that the collection communicates with the pleural cavity, giving a potential etiology for the air within the collection. 2. Multiple loculated pleur al effusions resulting in rightward tracheal deviation. The effusions may be exudative in response to inflammation and may also represent areas of resolving hemothorax. 3. Near total collapse of t he left lower lobe, which is likely multifocal in nature in the setting of the adjacent loculated pleural effusions as well as mucous plugging, or less likely aspiration, of the left lower lobe bronchi. 4. Left-sided hydropneumothorax in the area of the lingula. 5. Small pericardial effusion measuring up to 7 mm. 6. Complex fluid density co llection posteromedial to the left scapula, which may represent a hematoma in the setting of trauma. However adjacent pockets of air make a developing abscess also a consideration. 7. Diffuse subcutaneous sof t tissue emphysema, much of which is likely postsurgical in nature. 8. Multiple left-sided frac tures with orthopedic plates and screws in the left 4th through 9th ribs and left clavicle. Chest 1[facility]: [facility] 3:[facility] er INDICATION: Tube placement/removal/reposition COMPARISON: 02/20/2016 at 1437. FINDINGS: Post surgical changes in the left clavicle and left ribs with other multiple left rib fractures noted are stable. Subcutaneous gas overlying the left neck is stable. The cardiac silhouette is prominent. Hematoma associated with le ft-sided rib fractures, not significantly changed since the prior exam. No pneumothorax given the limitation of a semiup right exam. Left retrocardiac opacity, w hich can be due to singly or in combination hemothorax, atelectasis, sequela of contusion, pneumonia. The right lung is clear. IMPRESSION: The right lung is clear. Traumatic findings of the left chest. Left sided rib and clavicle fracture status post fixation. Left pleural hematoma and le ft lung atelectasis with or without superimposed airspace process. No significant interval changes. Chest 1view DX EXAM: XR CHEST 1 VIEW 02/20/2016 [facility] DATE: 02/20/2016 2:12 PM PERSONAL CHEF [facility] er INDICATION: Tube placement/removal/reposition COMPARISON: 02/20/2016 at 0112 FINDINGS: Post surgical changes in the left clavicle and left ribs with other multiple left rib fractures noted are stable. Subcutaneous gas overlying the left neck is stable. The cardiac silhouette is prominent. Pleural hematoma on the lef t is similar. While evaluation is limited given semi-erect positioning, no distinct pneumothorax is identified. Pleural parenchyma opacity left lung base partially cures the left hemidiaphragm, similar to previous study. IMPRESSION: 1. Stable posttraumatic and postsurgical change s. 2. Pleural hematoma, stable. 3. Pleural particle opacity left lung base likely representing combination of pleural fluid/hematoma and atelectasis, stable. Superimposed pneumonia not excluded. Chest 1view DX EXAM: XR CHEST 1 VIEW 02/20/2016 [facility] edical DATE: 02/20/2016 Center INDICATION: Tube placement/ removal/reposition . Comparison is made with yesterday FINDINGS: Cardiomediastinal silhouette and postoperative changes are stable. There is a loculated pleural extrapleural hematoma adjacent to left rib fractures which is stable. There is subcutaneous emph ysema in the left supraclavicular fossa and left side of the neck. The right lung and left uppe r lobe are clear. There is an opacity at the left lung base obscuring the left hemidiaphragm and the silhouette of the descending thoracic aorta. This opacity may represent l eft pleural effusion with or without left lower lobe consolidation or atelectasis. IMPRESSION: No significant interval change when compared to prior radiograph. Chest 1view DX EXAM: XR CHEST 1 VIEW 02/19/2016 [facility] ed[facility] DATE: 02/19/2016 Center INDICATION: Tube placement/ removal/reposition . Comparison is made with yesterday FINDINGS: Cardiomediastinal silhouette postoperative changes and the left clavicle and numerous left ribs and left apical chest tube are stable. There is a loculated pleural extrapleural hemothorax silh ouette associated with left upper rib fractures. There is platelike atelectasis at the left lung base. The right lung is clear No pneumothorax is visualize d however a supine or semierect radiograph is suboptimal for that determination. An erect film of the chest is necessary in order to exclude small pneumothoraces. IMPRESSION: No significant interval change when compared to prior radiograph. Chest 1view DX EXAM: XR CHEST 1 VIEW 02/18/2016 [facility] ed[facility] DATE: 02/18/2016 Center INDICATION: Tube placement/removal/reposition COMPARISON: Chest x-ray earlier the same day TECHNIQUE: AP chest FINDINGS: Lines and tubes: Left chest tube is unchanged fr om previous exam. Lungs and pleura: The right lung is clear. No right pleural effusion is seen. Loculated pleural effusion or hematoma is seen along the upper left lung, unchanged. Hazy opacities within the left lower annalise ng may be due to underlying pleural effusion, atelectasis or asymmetric edema.No pulmonary or pleural based abnormality is identified. Heart and mediastinum: The h eart size is normal for technique. The mediastinal contours are stable. Bones: Multiple displaced ri b fractures are again noted along with plates and screws along some of the ribs. Repair of the left clavicle is also noted. IMPRESSION: No significant interval change. Mild haziness of the left lower lung is present which may represent underlying pleural effusion with atelectasis or asymmetric edema. Chest 1view DX EXAM: XR CHEST 1 VIEW 02/18/2016 [facility] DATE: 02/18/2016 8:02 AM CDT Cent er INDICATION: Crackles COMPARISON: 02/18/2016 at 0029. TECHNIQUE: AP chest FINDINGS: Lines and tubes: There is a left chest tube with its tip near the apex. Lungs and pleura: The costop hrenic sulci are sharp. No pneumothorax identified. There is subsegmental atelectasis in both lung b ases. Some hematoma associated with left-sided rib fra ctures again noted. No new airspace consolidation is seen. Heart and mediastinum: Heart size is within norm al limits. Postoperative changes of the left clavicle, multiple left-sided ribs, multiple left-sided rib fractures noted. IMPRESSION: 1. No significant changes. Chest 1view DX EXAM: XR CHEST 1 VIEW 02/18/2016 [facility] DATE: 02/18/2016 3:00 AM CDT Cent er INDICATION: Tube/Catheter Placement COMPARISON: 02/17/2016. TECHNIQUE: AP chest FINDINGS: Lines and tubes: There is a left chest tube with its tip near the apex. Lungs and pleura: The costophrenic sulci are sha rp. No pneumothorax given the limitation of a semiup right exam. There is minimal subsegmental atelectasis in bot h lung bases. Persistent pleural or extrap leural hematoma associated with left-sided rib fractures again noted. No new airspace consolidation is seen. Heart and mediastinum: Heart size is within norm al limits. Postoperative changes of AMBROSIO F of left clavicle, multiple left-sided ribs. Multiple acute displaced left-sided rib fractures noted. IMPRESSION: 1. No significant interval changes. Chest 1view DX EXAM: XR CHEST 1 VIEW 02/17/2016 [facility] ed[facility] DATE: 02/17/2016 3:00 AM [facility] er INDICATION: Abnormal chest sounds. FINDINGS: Comparison is made to yesterday. The cardiomediastinal silhou ette is stable. Again seen are numerous displaced left-sided rib fractures, several of which have been transfixed by plates and screws. Plates and screws also transfix the left clavicle. There is a small left apicol ateral pleural reaction which may represent residual hematoma and/or small amount of loculated fluid within the pleural space adjacent to the rib fractures. A left apical chest tube remains in place. There is subsegmental atelectasis scattered in t he left lung. IMPRESSION: No significant change. Chest 1view DX EXAM: XR CHEST 1 VIEW 02/16/2016 [facility] ed[facility] DATE: 02/16/2016 Center INDICATION: Abnormal chest sounds . Comparison is made with yesterday FINDINGS: Cardiomediastinal silhouette, left apical chest tube and plates and screws transfixing the fractured left clavicle and numerous left ribs are unchanged. Despite the left apical chest tube ther e is a tiny left apical pneu mothorax. The top of the left lung is at the level of the left posterior 2nd rib interspace. Adjacent to the fractured le ft posterior 2nd through 4th ribs there is a loculated pleural extrapleural hematoma. The lungs are clear except for some platelike at electasis at both lung bases IMPRESSION: 1. Numerous fractures as detailed above. 2. Tiny left apical pneumothorax despite a left apical chest tube. Chest 1view DX EXAM: XR CHEST 1 VIEW 02/15/2016 [facility] ed[facility] DATE: 02/15/2016 3:00 AM CDT Cent er INDICATION: Abnormal chest sounds COMPARISON: Previous Day FINDINGS: Left thoracostomy tube with tip near the left apex multiple left rib fractures, and postsurgical changes in multiple left ribs and left clavicle are stable. Subcutaneous emphysema overlies the left chest wall. There stable cardiomegaly. M oderate low lung volumes are present. Pleural hematoma along the lateral left chest wall is similar. Atelectasis in the left lung base is present. Lucency adjacent to the med iastinum likely represents M ach effect between mediastinum and chest tube. Within limitations of semierect positioning, no significant pneumothorax is identified. IMPRESSION: 1. Stable lines and tubes. 2. Stable postsurgical changes. 3. Stable left pleural hematoma and left basila r atelectasis. Chest 1view DX EXAM: XR CHEST 1 VIEW 02/14/2016 [facility] ed[facility] DATE: 02/14/2016 2:[address] INDICATION: Crackles. FINDINGS: Comparison is made to February 13 at 4: 47 AM. Again seen are numerous disp laced left-sided rib fractures, several of which have been transfixed by plates and screws resulting in improved anatomic alignment of the left 4th through 8th ribs. Plates a nd screws transfix the left clavicle. There is soft tissue swelling and subcutaneous emphysema in the left chest wall. A left pleural effusion or h emothorax extends from the apex down laterally to the base. There is a left apical chest tube in place. There is subsegmental atelectasis in the left lo wer lobe and left upper lobe. IMPRESSION: 1. Plates and screws now transfix several of the left-sided rib fractures. 2. Left pleural effusion or hemothorax has not s ignificantly changed. 3. Left lower lobe platelike atelectasis. Chest 1view DX EXAM: XR CHEST 1 VIEW 02/14/2016 [facility] ed[facility] DATE: 02/14/2016 3:[address] INDICATION: Abnormal chest sounds COMPARISON: 02/13/2016 TECHNIQUE: AP chest IMPRESSION: 1. Multiple left rib fractur es again seen associated with peripheral left lung opacities suggestive of mild contusions. Status post internal fixation of the left clavicular fracture. 2. A small left pleural fluid which may represen t hemothorax. 3. Right lung is clear. Right costophrenic sulcu s is sharp. 4. Again seen is the left thoracostomy tube. Clavicle DX EXAM: XR LEFT CLAVICLE 2 VIEWS 02/13/2016 [facility] DATE: 02/13/2016 at 1003 hours C enter INDICATION: Post Op Xray ORIF Left Clavicle COMPARISON: 02/12/2016 TECHNIQUE: AP and axial views of the clavicle FINDINGS: There is been int erim placement of cranial and anterior plate and screws spanning the comminuted mid shaft left clavicle fracture which now projects in satisfactory alignment on both views. N o widening or offset of the sternoclavicular or acromioclavicular joint is identified on these views. Additional fractures of the left scapula and lef t ribs are partially imaged. IMPRESSION: Satisfactory al ignment following internal fixation of the comminuted left mid shaft clavicle fracture. Chest 1view DX EXAM: Chest 1view DX 02/13/2016 [facility] dical DATE: 02/13/2016 0154 hours CDT Center INDICATION: Abnormal chest sounds ADDITIONAL HISTORY: 'Fell 25 ft off ladder.' COMPARISON: Chest 1 view at 1155 hours, CT chest abdomen pelvis 02/12/2016 at 1147 hours. TECHNIQUE: Portable AP semierect chest with a to ruma of 1 image(s). FINDINGS: Lines, tubes, devices: Left apical chest tube remains in place. Numerous cardiac monitoring leads overlie the chest. Lungs: The lung volumes are diminished with left lung patchy opacities. Pleura: There is a trace residual left lateral p neumothorax. Heart and mediastinum: The h eart size is normal for technique. The pulmonary vasculature is normal. There is a mildly tortuous thoracic aorta. Bones: Again noted are multi ple left-sided rib fractures some of which are displaced and segmental. Again seen is a left mid clavicle fracture. Soft Tissue: There has been a decrease in subcutaneous emphysema along the left chest wall and base of the left neck since 02/12/2016 at 1155 hours. IMPRESSION: 1. Trace residual left late ral pneumothorax with the left apical chest tube in place. 2. Decrease in subcutaneous emphysema along the left lateral chest wall. 3. Diminished lung volumes with patchy opacities throughout the left lung representing any combination of atelectasis, contusion or developing consolidation. Scapula wo contrast EXAM: CT LEFT SCAPULA WITHOUT CONTRAST 02/12 [facility] CT DATE: 02/12/2016 10:58 PM CDT Ce nter INDICATION: Fracture COMPARISON: Chest abdomen and pelvis CT of 02/11 TECHNIQUE: Volumetric acquis ition of the left scapula without contrast. Axial, sagittal and coronal reconstructions. 3D reconstructions are created at the acquisition workstation. IV contrast: None. DLP: 402 mGy-cm FINDINGS: Scapula: A comminuted fractu re of the inferior scapular body is minimally displaced, without extension to the scapular spine, glenoid neck or glenoid articular surface. The coracoid and acromion processes are intact. Proximal humerus: Intact Clavicle: A comminuted mid shaft clavicle fractu re remains mildly displaced. Remaining bones: Multiple le ft-sided rib fractures are again identified. Minimal superior endplate fracture at T3 with a left T3 transverse process fracture are partially visualized. Soft tissues: Overlying soft tissue swelling is present in the region of the clavicle and scapular fractures. Pulmonary contusions and hemothorax, and a trace residual left pneumothorax are partially vi sualized. Subcutaneous emphysema is present at t he left chest wall. IMPRESSION: 1. Comminuted left scapular body fracture below the level of the scapular spine, without involvement of the glenoid neck or glenoid articular surface. 2. Comminuted left mid shaft clavicle fracture. Ankle 3 views DX EXAM: XR LEFT ANKLE 3 VIEWS 02/12/2016 [facility] DATE: 02/12/2016 at 1843 hours. Center INDICATION: Pain from a fall COMPARISON: None TECHNIQUE: AP, oblique and lateral radiographs of the ankle FINDINGS: No acute fract ure or malalignment is identified. The ankle mortise is congruent. Calcaneal spurring is noted. No soft tissue abnormality is identified. IMPRESSION: No acute bony abnormality of the le ft ankle. Tibia fibula series EXAM: XR RIGHT TIBIA 2 VIEWS 02/12/2016 [facility] DX DATE: 02/12/2016 at 1847 hours. Center INDICATION: Laceration COMPARISON: None TECHNIQUE: AP and lateral radiographs of the t ibia FINDINGS: No acute fracture or malalignment is identified. The right knee joint is congruent. Mild chondrocalcinosis noted of the lateral comp artment of the right knee. No soft tissue abnormality is identified. IMPRESSION: 1. No acute bony abnormality of the right tibia or fibula. 2. Mild chondrocalcinosis of the right knee jules nt. Clavicle DX EXAM: XR CLAVICLE 2 VIEWS 02/12/2016 [facility] Medical DATE: 02/12/2016 3:[address] INDICATION: Fracture COMPARISON: Left shoulder series 02/12/2016 at 1 :01 PM TECHNIQUE: AP and axial views of the clavicle Laterality: Left FINDINGS: Comminuted fractu res through the middle 3rd of the clavicle with one half shaft width inferior displacement of the distal fragment. No widening of the AC or CC distances. Multiple left rib fractures are partially imaged. Left apical chest tube. Left neck base soft tissue gas. IMPRESSION: Comminuted left mid clavicle fracture with one half shaft width inferior displacement. Spine thoracic 2 EXAM: XR THORACIC SPINE 2 VIEWS 02/12/2016 [facility] Medical views DX DATE: 02/12/2016 1:[address] INDICATION: Pain, Thoracic region COMPARISON: CT chest 7 pelvis 02/12/2016 at 1147 hours TECHNIQUE: AP and lateral radiographs of the tho racic spine FINDINGS: Minimal superior e ndplate compression fracture of T3 and left T3 transverse process fracture better evaluated on prior chest CT. No significant change in vertebral body height on this upright film. Vertebral body heights , disk heights and alignment are otherwise preserved. No degenerative disk disease or osteoarthritis. No soft tissue abnormality is identified. IMPRESSION: Minimal superio r endplate compression fracture of T3 and left T3 transverse process fracture better evaluated on prior chest CT. No significant change in vertebral body height on this upright film. Clavicle DX EXAM: XR LEFT CLAVICLE 2 VIEWS 02/12/2016 [facility] Medical EXAM: XR LEFT SHOULDER 3 VIEWS C enter EXAM: XR LEFT HUMERUS 2 VIEWS DATE: 02/12/2016 at 1301 hours INDICATION: Pain, Trauma COMPARISON: CT chest abdomen pelvis 02/12/2016 TECHNIQUE: AP and axial vie ws of the left clavicle, AP views in internal and external rotation and an axillary view of the left shoulder, AP and lateral views of the left humerus FINDINGS: Clavicle: Again demonstrated is displaced and minimally comminuted left clavicle fracture in the medial third of the diaphysis. Acromioclavicular joint width is at the upper limits of normal. Multiple l eft-sided rib fractures are partially visualized . Shoulder: A comminuted left scapular body fracture is present, without articular extension to the glenoid. No glenohumeral dislocation. Small osteophytes are present at the glenohumeral articulation. Humerus: No acute bony abnormality of the humeru s. IMPRESSION: 1. Displaced mid shaft left clavicle fracture w ith mild comminution. 2. Comminuted left scapular body fracture without articular surface extension to the glenoid. No glenohumeral dislocation. 3. No acute bony abnormality of the humerus. 4. Multiple left-sided rib fractures partially v isualized. Shoulder series DX EXAM: XR LEFT CLAVICLE 2 VIEWS 02/12/2016 [facility] Medical EXAM: XR LEFT SHOULDER 3 VIEWS C enter EXAM: XR LEFT HUMERUS 2 VIEWS DATE: 02/12/2016 at 1301 hours INDICATION: Pain, Trauma COMPARISON: CT chest abdomen pelvis 02/12/2016 TECHNIQUE: AP and axial vie ws of the left clavicle, AP views in internal and external rotation and an axillary view of the left shoulder, AP and lateral views of the left humerus FINDINGS: Clavicle: Again demonstrated is displaced and minimally comminuted left clavicle fracture in the medial third of the diaphysis. Acromioclavicular joint width is at the upper limits of normal. Multiple l eft-sided rib fractures are partially visualized . Shoulder: A comminuted left scapular body fracture is present, without articular extension to the glenoid. No glenohumeral dislocation. Small osteophytes are present at the glenohumeral articulation. Humerus: No acute bony abnormality of the humeru s. IMPRESSION: 1. Displaced mid shaft left clavicle fracture w ith mild comminution. 2. Comminuted left scapular body fracture without articular surface extension to the glenoid. No glenohumeral dislocation. 3. No acute bony abnormality of the humerus. 4. Multiple left-sided rib fractures partially v isualized. Humerus 2 views DX EXAM: XR LEFT CLAVICLE 2 VIEWS 02/12/2016 [facility] Medical EXAM: XR LEFT SHOULDER 3 VIEWS C enter EXAM: XR LEFT HUMERUS 2 VIEWS DATE: 02/12/2016 at 1301 hours INDICATION: Pain, Trauma COMPARISON: CT chest abdomen pelvis 02/12/2016 TECHNIQUE: AP and axial vie ws of the left clavicle, AP views in internal and external rotation and an axillary view of the left shoulder, AP and lateral views of the left humerus FINDINGS: Clavicle: Again demonstrated is displaced and minimally comminuted left clavicle fracture in the medial third of the diaphysis. Acromioclavicular joint width is at the upper limits of normal. Multiple l eft-sided rib fractures are partially visualized . Shoulder: A comminuted left scapular body fracture is present, without articular extension to the glenoid. No glenohumeral dislocation. Small osteophytes are present at the glenohumeral articulation. Humerus: No acute bony abnormality of the humeru s. IMPRESSION: 1. Displaced mid shaft left clavicle fracture w ith mild comminution. 2. Comminuted left scapular body fracture without articular surface extension to the glenoid. No glenohumeral dislocation. 3. No acute bony abnormality of the humerus. 4. Multiple left-sided rib fractures partially v isualized. Brain wo contrast CT EXAM: CT BRAIN WITHOUT CONTRAST 02/12/2016 [facility] DATE: 02/12/2016 12: 10:00 PM Ce nter INDICATION: fall COMPARISON: None available TECHNIQUE: Routine axial CT images of the brain were obtained without contrast. DLP: 1746 mGy-cm FINDINGS: Non-contrast images of the h ead demonstrate no edema, hemorrhage, mass lesion or other acute intracranial abnormality. The brain has normal attenua tion and prather-white matter distinction. The ventricles are normal. The basal cisterns and sulci are normal in size. There is no chronic abnormality. There is opacification of so me of the paranasal sinuses. Old fracture versus dehiscence of the right lamina papyracea is identified. IMPRESSION: No acute intracranial injury. Chest/Abdomen/Pelvis EXAM: CT CHEST WITH CONTRAST 02/12/2016 [facility] IV contrast CT EXAM: CT ABDOMEN AND PELVIS WITH CONTRAST Center DATE: 02/12/2016 at 1147 hours INDICATION: fall COMPARISON: None. TECHNIQUE: Volumetric acquis ition of the chest, abdomen and pelvis following intravenous administration of contrast. Delayed imaging was then performed through the abdomen and pelvis, using a radiation reduction technique. Axial, coronal and sagittal reformats. IV contrast: 120 mL of Visipaque administered. Oral contrast: None. DLP: 3211 mGy-cm FINDINGS: Lines and Tubes: None. Lower Neck: Subcutaneous sof t tissue emphysema is identified tracking into the left lower neck anteriorly as well as is the left paraspinal/intramuscular space medial to the left scapula. Thoracic Aorta and Mediastin um: No mediastinal hematoma or thoracic aortic injury. Lungs and Pleura: Left-sided chest tube has been placed with the tip terminating in the left lung apex. Hyperdense left pleural fluid consistent with a hemothorax with associated compressive atelectasis . A component of left-sided pulmonary contusion is likely present. Small pneumothorax is identified in the region of the lingula. Hepatobiliary: Diffuse fatty change of the liver. No intra or extrahepatic biliary ductal dilatation. No injury. Gallbladder: No injury. Spleen: Normal. Pancreas: Normal. Adrenals: Normal. Kidneys: Normal. Ureters and Bladder: No injury. Reproductive Organs: No injury. Gastrointestinal Tract: No injury. Peritoneum and Retroperitoneum: No fluid collect ions or free air. Abdominal/Pelvic Vasculature: No vascular injury . Lymphadenopathy: None. Spine/Bones: Displaced and c omminuted left scapular fracture is identified with the larger medial fracture fragment displaced posteriorly, without evident intra-articular extension to the glenoid. A dis placed left clavicle fractur e is also noted medially. Multiple rib fractures identified in the left 1st-11th ribs, some of which demonstrate segmented fractures. Some of the displaced fractured ribs suc h as the left 9th-11th ribs cause tenting of the left hemidiaphragm which may result in diaphragmatic injury, however without evidence for diaphragmatic rupture or tear at this time. The superior endpla te compression fracture is p resent at the superior margin of T3 on the right, such as seen series 6 image 40 and series 8 image 20. A nondisplaced fracture of the left transverse process of T3 is presen t on series 6 image 47. No other bony injury. N o spine injury identified. Soft Tissues: Subcutaneous s oft tissue emphysema extends from the lower neck anteriorly and upper thoracic region posteriorly inferiorly to the left axilla and into the left flank region. A 2.6 cm x 4.6 lipoma is identified anteri or to the tip of the right scapula within the serratus anterior at right lateral chest wall, without atypical features. Additional T3 superior endpl ate compression fracture communicated to Dr. Marija Hermosillo via telephone at 1329 hours 02/12/2016 IMPRESSION: 1. Left 1-11 rib fractures, with 3-5 being segmental due to additional nondisplaced posterior rib fractures at the costovertebral junctions. Nondisplaced left seventh costochondral cartilage fracture. 2. Displaced left 9- 11 rib s result in tenting of the left hemidiaphragm, which may predispose to diaphragmatic injury, however without evidence of diaphragmatic rupture /tear at this time. 3. Small left hemothorax an d small left pneumothorax with left chest tube tip at the left lung apex. 4. Comminuted left scapular and displaced left clavicle fractures. 5. Minimal superior endplat e compression fracture of T3, with a nondisplaced fracture of the left transverse process of T3. 6. Subcutaneous soft tissue emphysema extending from the lower neck/upper back extending into the left flank. 7. No acute intra-abdominal abnormality identif ied. Spine cervical wo EXAM: CT CERVICAL SPINE WITHOUT CONTRAST 02/11 [facility] contrast CT (ER) DATE: 02/12/2016 11:31 AM CDT C enter INDICATION: fall COMPARISON: None TECHNIQUE: Volumetric acqui sition of the cervical spine without contrast. Axial, sagittal and coronal reconstructions. IV contrast: None. DLP: 499 mGy-cm FINDINGS: The spine is imaged from the skull bas e to the level of T1. There is mild vertebral body height loss at C7 with mild widening of the anterior C6-C7 disc space. Left first and 2nd rib fracture is noted. Severe degenerative disc disease at C5-C6. Severe facet arth ropathy on the right at C4-C5 on the left at C3- C3 and C3-C4. Extensive subcutaneous soft tissue emphysema is identified extending from the upper back to the lower neck. Left-sided chest tube and ti ny left apical pneumothorax are partially visualized. Severe atherosclerotic calcification of the cole tid bulbs. IMPRESSION: 1. Mild chronic appearing co mpression deformity of the C7 vertebral body with widening of the anterior disc space at C6-C7. Recommend MRI of the cervical spine if patient has focal tenderness in this region. 2. Left posterior 1st and 2nd rib fractures. Finding #1 relayed to trauma chief via the OR scrub nurse, Criss, at 4:55 pm on 02/12/2016. Chest 1view DX EXAM: XR CHEST 1 VIEW 02/12/2016 [facility] edical EXAM: XR CHEST 1 VIEW Center EXAM: XR CHEST 1 VIEW EXAM: XR CHEST 1 VIEW DATE: 02/12/2016 INDICATION: fall, tube placement and tube reposi tion COMPARISON: None TECHNIQUE: AP chest, four se quential examinations obtained at 1125 hours, 1145 hours, 1149 hours, 1155 hours FINDINGS: 1125 hours: Lines and tubes: None. Lungs and pleura: Hazy opaci ties are present within the left lung most likely presents pulmonary hemorrhage in the setting of trauma. A pneumothorax is identified and can be further evaluated on separat e CT study which includes the chest. No pleural fluid is identified. Heart and mediastinum: Patie nt is slightly rotated to the right. Mediastinal contours are not well-defined, can be further evaluated on the pending CT study. Bones/soft tissue: Mildly di splaced fractures are noted in the lateral left 2nd-10th ribs. Left scapular and left midclavicular fractures are present. There is marked soft tissue emphysema in the left axillary region. At 1145 hours: There has bee n interval placement of a left-sided chest tube which demonstrates kinking at the medial aspect. There is slight interval enlargement of the left pneumothorax. At 1149 hours: The left-side d chest tube is repositioned with the tip pointing inferiorly at the left hemidiaphragm with slight interval improvement of the left-sided pneumothorax. At 1155 hours: There is stra ightening of the left-sided chest tube with the tip terminating in the left lung apex. Left pneumothorax is no longer well seen. IMPRESSION: 1. Displaced left lateral 2- 10 rib fractures, with left-sided pneumothorax and left pulmonary hemorrhage. 2. On the second examination , there is placement of a left-sided chest tube with the tip positioned in the left lung apex on the final image. Improvement of the left pneumothorax after chest tube placement. 3. Subcutaneous soft tissue emphysema in the lef t chest wall. Chest 1view DX EXAM: XR CHEST 1 VIEW 02/12/2016 [facility] EXAM: XR CHEST 1 VIEW Center EXAM: XR CHEST 1 VIEW EXAM: XR CHEST 1 VIEW DATE: 02/12/2016 INDICATION: fall, tube placement and tube reposi tion COMPARISON: None TECHNIQUE: AP chest, four se quential examinations obtained at 1125 hours, 1145 hours, 1149 hours, 1155 hours FINDINGS: 1125 hours: Lines and tubes: None. Lungs and pleura: Hazy opaci ties are present within the left lung most likely presents pulmonary hemorrhage in the setting of trauma. A pneumothorax is identified and can be further evaluated on separat e CT study which includes the chest. No pleural fluid is identified. Heart and mediastinum: Patie nt is slightly rotated to the right. Mediastinal contours are not well-defined, can be further evaluated on the pending CT study. Bones/soft tissue: Mildly di splaced fractures are noted in the lateral left 2nd-10th ribs. Left scapular and left midclavicular fractures are present. There is marked soft tissue emphysema in the left axillary region. At 1145 hours: There has bee n interval placement of a left-sided chest tube which demonstrates kinking at the medial aspect. There is slight interval enlargement of the left pneumothorax. At 1149 hours: The left-side d chest tube is repositioned with the tip pointing inferiorly at the left hemidiaphragm with slight interval improvement of the left-sided pneumothorax. At 1155 hours: There is stra ightening of the left-sided chest tube with the tip terminating in the left lung apex. Left pneumothorax is no longer well seen. IMPRESSION: 1. Displaced left lateral 2- 10 rib fractures, with left-sided pneumothorax and left pulmonary hemorrhage. 2. On the second examination , there is placement of a left-sided chest tube with the tip positioned in the left lung apex on the final image. Improvement of the left pneumothorax after chest tube placement. 3. Subcutaneous soft tissue emphysema in the lef t chest wall. Chest 1view DX EXAM: XR CHEST 1 VIEW 02/12/2016 [facility] edical EXAM: XR CHEST 1 VIEW Center EXAM: XR CHEST 1 VIEW EXAM: XR CHEST 1 VIEW DATE: 02/12/2016 INDICATION: fall, tube placement and tube reposi tion COMPARISON: None TECHNIQUE: AP chest, four se quential examinations obtained at 1125 hours, 1145 hours, 1149 hours, 1155 hours FINDINGS: 1125 hours: Lines and tubes: None. Lungs and pleura: Hazy opaci ties are present within the left lung most likely presents pulmonary hemorrhage in the setting of trauma. A pneumothorax is identified and can be further evaluated on separat e CT study which includes the chest. No pleural fluid is identified. Heart and mediastinum: Patie nt is slightly rotated to the right. Mediastinal contours are not well-defined, can be further evaluated on the pending CT study. Bones/soft tissue: Mildly di splaced fractures are noted in the lateral left 2nd-10th ribs. Left scapular and left midclavicular fractures are present. There is marked soft tissue emphysema in the left axillary region. At 1145 hours: There has bee n interval placement of a left-sided chest tube which demonstrates kinking at the medial aspect. There is slight interval enlargement of the left pneumothorax. At 1149 hours: The left-side d chest tube is repositioned with the tip pointing inferiorly at the left hemidiaphragm with slight interval improvement of the left-sided pneumothorax. At 1155 hours: There is stra ightening of the left-sided chest tube with the tip terminating in the left lung apex. Left pneumothorax is no longer well seen. IMPRESSION: 1. Displaced left lateral 2- 10 rib fractures, with left-sided pneumothorax and left pulmonary hemorrhage. 2. On the second examination , there is placement of a left-sided chest tube with the tip positioned in the left lung apex on the final image. Improvement of the left pneumothorax after chest tube placement. 3. Subcutaneous soft tissue emphysema in the lef t chest wall. Chest 1view DX EXAM: [facility] Center EXAM: XR CHEST 1 VIEW EXAM: XR CHEST 1 VIEW DATE: 02/12/2016 INDICATION: fall, tube placement and tube reposi tion COMPARISON: None TECHNIQUE: AP chest, four se quential examinations obtained at 1125 hours, 1145 hours, 1149 hours, 1155 hours FINDINGS: 1125 hours: Lines and tubes: None. Lungs and pleura: Hazy opaci ties are present within the left lung most likely presents pulmonary hemorrhage in the setting of trauma. A pneumothorax is identified and can be further evaluated on separat e CT study which includes the chest. No pleural fluid is identified. Heart and mediastinum: Patie nt is slightly rotated to the right. Mediastinal contours are not well-defined, can be further evaluated on the pending CT study. Bones/soft tissue: Mildly di splaced fractures are noted in the lateral left 2nd-10th ribs. Left scapular and left midclavicular fractures are present. There is marked soft tissue emphysema in the left axillary region. At 1145 hours: There has bee n interval placement of a left-sided chest tube which demonstrates kinking at the medial aspect. There is slight interval enlargement of the left pneumothorax. At 1149 hours: The left-side d chest tube is repositioned with the tip pointing inferiorly at the left hemidiaphragm with slight interval improvement of the left-sided pneumothorax. At 1155 hours: There is stra ightening of the left-sided chest tube with the tip terminating in the left lung apex. Left pneumothorax is no longer well seen. IMPRESSION: 1. Displaced left lateral 2- 10 rib fractures, with left-sided pneumothorax and left pulmonary hemorrhage. 2. On the second examination , there is placement of a left-sided chest tube with the tip positioned in the left lung apex on the final image. Improvement of the left pneumothorax after chest tube placement. 3. Subcutaneous soft tissue emphysema in the lef t chest wall. Chest 1view DX EXAM: XR CHEST 1 VIEW 02/08/2016 [facility] edical DATE: 02/19/2016 at 1949 hours C enter INDICATION: Tube placement/ removal/reposition . Comparison is made with 17 hours earlier today FINDINGS: Cardiomediastinal silhouette and postoperative changes are stable. The left chest tube has been removed. No pneumothorax is visualized however a supine or semierect radiograph is suboptimal fo r that determination. An ere ct film of the chest is necessary in order to exclude small pneumothoraces. There is an opacity at the l eft lung base obscuring the left hemidiaphragm and the silhouette of the descending thoracic aorta. This opacity may represent left pleural effusion with or without left lowe r lobe consolidation or atelectasis.. The right lung is clear There is a loculated pleural extrapleural hematoma adjacent to the fractured left upper ribs which is stable. There is subcutaneous emphysema in the left chest wall which has increased slightly since prior radiograph IMPRESSION: 1. The left chest tube has been removed 2. No pneumothorax is visual ized but a semierect radiograph is suboptimal for that determination. 3. Increasing left retrocardiac opacity. Consultation Notes No Data Provided for This Section Discharge Summaries No Data Provided for This Section History and Physicals No Data Provided for This Section Vital Signs Vital Sign Value Date Comments Source Heart Rate 70 05/15/2016 [facility] Temperature Oral (F) 97.8 F 05/15/2016 [facility] Systolic (mm Hg) 135 05/15/2016 [facility] t Diastolic (mm Hg) 87 05/15/2016 [facility] st Respitory Rate 18 05/15/2016 [facility] Respitory Rate 18 05/15/2016 [facility] Systolic (mm Hg) 142 05/15/2016 [facility] t Diastolic (mm Hg) 82 05/15/2016 [facility] Temperature Oral (F) 98.6 F 05/15/2016 [facility] Heart Rate 97 05/15/2016 [facility] Temperature Oral (F) 98.0 F 05/14/2016 [facility] Systolic (mm Hg) 152 05/14/2016 [facility] t Diastolic (mm Hg) 91 05/14/2016 [facility] st Respitory Rate 18 05/14/2016 [facility] Heart Rate 85 05/14/2016 [facility] Weight 100 03/31/2016 [facility] Height 187.96 cm 03/31/2016 [facility] BMI Calculated 28.31 03/31/2016 [facility] Heart Rate 87 03/31/[address] [facility] Temperature Oral (F) 97.6 F 03/31/2016 [facility] Center Systolic (mm Hg) 133 03/31/2016 [facility] dical Center Diastolic (mm Hg) 77 03/31/2016 [facility] Temperature Oral (F) 98.1 F 03/31/2016 [facility] Center Systolic (mm Hg) 133 03/31/2016 [facility] dical Center Diastolic (mm Hg) 97 03/31/[facility] Heart Rate 85 03/31/[address] [facility] Respitory Rate 20 03/31/2016 [facility] Heart Rate 86 03/31/[address] [facility] Systolic (mm Hg) 154 03/31/2016 [facility] dical Center Diastolic (mm Hg) 99 03/31/2016 [facility] edical Center Respitory Rate 18 03/31/2016 [facility] Center Temperature Oral (F) 98.2 F 03/31/2016 [facility] s Medical Center Respitory Rate 18 03/30/2016 [facility] Center Height 187.96 cm 03/02/2016 [facility] Height 187.96 cm 03/02/[address] [facility] Height 187.96 cm 03/02/2016 [facility] Weight 100 02/12/[address] [facility] BMI Calculated 28.31 02/12/2016 [facility] Weight 100 02/12/2016 [facility] BMI Calculated 28.31 02/12/2016 [facility] Encounters Location Location Encounter Encounter Reason Attending ADM SC Stat us Source Details Type Number For Provider Date Date Visit [facility] Inpatient [id number] Keyur Pickett 02/11 03/31 [facility]2015 [facility] Inpatient [id number] Jes 03/31 05/16 [facility]2015 [facility] Procedures No Data Provided for This Section Assessment and Plan Assessment and Plan Date Source Extracted from:Title: Progress Note 05/16/2016 [facility] Author: Nishant Rivera MD Date: 05/14/16 Impression and Plan 1. S/p Trauma with multiple injuries wit h open wound on the left scapular area. [...] serial enzymes negative. PLAN: Continue current management. Kia nue wound care. Getting vac changes twice a week. Discharge will depend on when Surgery advises to stop the wound vac. Extracted from:Title: General Admission H&P * Author: Junior Parkinson MD Date: 03/31/16 Impression and Plan H&P ID# [id number] Extracted from:Title: Clinical Document 03/31/2016 [facility] Author: Jada Kidd NP Date: 03/31/16 Trauma Surgery Floor Progress Note: Today's Date: 03/31/16 Hospital Day # 48 Chief Complaint: "pain at WV sites" Overnight Events: NAEON Tertiary: Performed by: Brodie Jenkins NP on 02/14/2016 07:42 CDT In Hospital Operations: Surgical Procedures: (no date) WASHOUT, WOUND VAC EXCHANGE LEFT CHEST [id number] (primary surgeon unspecified) 03/21/16 18:01 WASHOUT OF LEFT CHEST WOUNDS, DELAYED PRIMARY CLOSURE OF LEFT THORACOTOMY WOUND, APPLICATION OF WOUND VAC [id number] Primary Surgeon: Romeo Kauffman MD (S ervice: GEN) 03/18/16 08:25 LEFT THORACOTOMY WOUND WASHOUT AND WOUND V AC EXCHANGE [id number] Primary Surgeon: Laurie Tamayo (Service: GEN) 03/14/16 08:47 wound vac exchange left chest and debridme nt of right leg [id number] Primary Surgeon: Kristian Guardado MD (Servi ce: GEN) 03/14/16 08:22 wound vac exchange left chest and debridme nt of right leg [id number] Primary Surgeon: Kristian Guardado MD (Servi ce: GEN) 03/11/16 17:08 NEGATIVE WOUND PRESSURE THERAPY GREATER TH AN 50 CM SQ [id number] Primary Surgeon: Noble Alvarado MD (Service: GEN) 03/08/16 13:18 WASHOUT OF LEFT CHEST WALL WOUND VAC EXCHA NGE [id number] Primary Surgeon: Keyur Pickett (Service: GEN) 03/06/16 12:21 CHEST WOUND VAC EXCHANGE [id number] Primary Surgeon: Shira Mcgrath MD (Serv ice: GEN) 03/03/16 08:27 LEFT CHEST WOUND WASHOUT AND WOUND VAC SIMON CEMENT [id number] Primary Surgeon: Keyur Pickett (Service: GEN) 02/29/16 14:25 WASHOUT OF LEFT CHEST WOUND WITH WOUND VAC PLACEMENT, REMOVAL OF LEFT CHEST TUBE [id number] Primary Surgeon: Canelo Mcdaniel MD ( Service: GEN) 02/25/16 08:44 Left thoractomy incision re opening and wo und vac exchange [id number] Primary Surgeon: Kristian Guardado MD (Servi ce: GEN) 02/22/16 11:33 Left anterior lateral thoracotomy, left chest tube placement x2, evacuation of left hydrothorax, evacuation of left subcuatanous seroma, repair of left lower lobe laceration [id number] Primary Surgeon: Canelo Mcdaniel MD ( Service: GEN) 02/22/16 10:11 Left anterior lateral thoracotomy, left chest tube placement x2, evacuation of left hydrothorax, evacuation of left subcuatanous seroma, repair of left lower lobe laceration [id number] Primary Surgeon: Canelo Mcdaniel MD ( Service: GEN) 02/14/16 08:33 OPEN REDUCTION INTERNA L FIXATION OF LEFT RIBS 4-9, POSTERIOR LATERAL THORACOTOMY, REPAIR OF DIAPHRAGM, EXPAREL RIB NERVE BLOCKADE [id number] Primary Surgeon: Romeo Kauffman MD (S ervice: GEN) 02/13/16 08:46 OPEN REDUCTION INTERNAL FIXATION LEFT CLAV ICLE [id number] Primary Surgeon: Noble Fox MD (Servic e: ORT) (no date) DIAGNOSTIC LAPAROSCOPY, POS SIBLE DIAPHRAGM REPAIR, POSSIBLE EXPLORATORY LAPAROTOMY, POSSIBLE THORACOTOMY, AND ALL OTHER INDICATED PROCEDURES [id number] (primary surgeon unspecified) (no date) [id number] (primary surgeon unspecified) Daily Events: 02/11: admitted [...] p atient is less agitated, but still requi ring restraints. The diazepam dose was decreased to 30q8h, clonidine schedule changed to 0.2 q8h, with a goal of improving sleep hygiene and getting the patient O OB to neurochair. The CXR is improved fr om the previous day with a plan to waterseal the chest tube at 10 PM and obtain a morning CXR. Suppository added as no BM since admission and bowel regimen increased. 02/16: More alert today still confused, c ontinue Valium and PRN Ativan. Freeman d/raffi 02/17: confused, however more alert, continue to treat alcoho l withdraw 02/18 confused, intermittently agitated, continued treatment of alcohol withdrawal. CT accidently removed by patient. 02/19 confusion, slightly more cooperative today. F/U CXR no pneumothorax 02/20: worsening L pleural effusion on CXR, likely CT c hest today; continue CIWA 02/21: CXR worsening; to OR for redo thoracotomy; Transfer to [facility] 02/22: Extubated, vanc and ceftaz started , pleural fluid cultures growing gram neg rods 02/23: agitated, increased clonidine, ad ded labetolol. repleted phos. failed swallow study. 02/24: OR today for wound vac exchange, returned to [facility] in tubated 02/25: Extubated. RLE lac sutures removed 02/26: [...] Respiratory distress after OR required HFNC, weaned t o room air. 03/07: Transferred to from [facility] . Has sitter and restraints. Freeman reinserted and flomax started for urinary retention. OR tomorrow for WVE with trauma. WBC 17.1 (16.0) u/a negative 03/08: Left anterolateral thoracotomy wound washout and WVE. 03/09: no issues during the day, patient working with OT and PT. On restraints, and sitter by bedside. Trying to pull on tubes. 03/10: Patient started on diet dysphagia yesterday, tube fee ds overnight 03/11: To undergo WVE and washout of his left upper chest wo und 03/12: Patient pending disposition 03/13: RLE laceration repair dehiscence, will undergo washout tomorrow along with left chest wound. 03/14: s/p RLE and anterolateral thoracotomy wound washout. 03/15: no acute events 03/18: s/p WVE L CW wound 03/19: NAEON, AFVSS, pain regimen modifie d (+norco, removed oxy, increased gabapentin) 03/20: NAEON, AFVSS, pain regimen adjusted, pending OR for ne xt WVE 03/21: NAEON, OR for L CW WVE, closure of thoracotomy wound 03/22: NAEON 03/23: NAEON 03/24: bedside WVE 03/25 KELLEY, pending WV takedown/exchange Friday 03/16: NAEON 03/26-dc'd [place] and started on oxycodone for increased pain . 03/27-EKG/CXR done today.Pt c/o left love ed chest pain.EKG with NSR.Robaxin prn started for spasms.WV exchange at bedside today.Pt wants dilaudid IV before dressing change. 03/28-Dressings changed on incisions/wounds.WV with good suc tion. 03/29: No acute events, clonidine and flomax discontinued 03/30: Will be discharge to TCU in am t omorrow for WV care; we will remove WV in am just prior to d/c and place w->d dressings on wounds. WV will be replaced by TCU staff after arrival there. 03/31: wound vac removed from the 2 pos terior chest wounds and covered with wet to dry dressings. Patient to be discharged this am to TCU where the wound vac will be replaced and that facility will ch delia the WV 3 x week. Peer to Peer cons ult was done via phone with TCU physician yesterday. Physical Examination/Findings: Vitals Tmp(F) Tmp(C) Ttype B P MAP Pulse RR SpO2 FIO2 ETCO2 03/31 05:53 98.1 36.72 oral 133/97 --- 85 -- 100 --- --- 03/30 23:54 ---- ---- ---- 1 54/99 --- 86 20 100 --- --- 03/30 19:15 98.2 36.78 oral 122/88 --- 87 18 98 --- --- 03/30 16:57 98.8 37.11 oral 146/94 --- 82 -- 98 --- --- 03/30 11:00 98.8 37.11 oral 146/85 --- 85 -- 96 --- --- 24 Hr Tmax: 98.8F (37.11c) at 03/30 16:57 Pain 8 (flank) Scheduled Meds (16): 03/03/16 22:48 QUEtiapine (SEROquel) 25 mg PO Bedtime 03/20/16 18:01 acetaminophen-hydrocodone ([place] 10/325 oral tablet) 1 tab PO Q6H 03/20/16 9:00 docusate 100 mg PO Daily 03/16/16 6:00 enoxaparin (Lovenox) 40 mg SUB-Q [id number] 03/20/16 17:00 gabapentin 800 mg PO Q8H 03/24/16 17:00 lidocaine topical (lidoca ine topical patch (5% film)) 1 patch TOP Daily 02/21/16 9:00 multivitamin 1 tab PO Daily 02/25/16 10:00 nicotine 14 mg TOP Daily 03/19/16 17:00 polyethylene glycol 3350 (MiraLax) 17 gm PO B ID 03/20/16 0:45 propranolol (Inderal) 10 mg PO Q8H 03/03/16 17:00 psyllium (Metamucil) 3.4 gm PO BID 02/15/16 9:00 remove patch 1 patch TOP Daily 02/24/16 21:00 remove patch 1 patch TOP Bedtime 03/01/16 21:00 risperiDONE (Risperdal) 0.5 mg PO Q12H PRN Meds (4): 03/20/16 14:34 haloperidol (Haldol) 2 mg PO TID 03/26/16 10:42 oxyCODONE (oxyCODONE 5 mg oral tablet) 5 mg P O Q4H x4 03/02/16 19:01 zinc oxide topical [...] LLE 2+ RLE 2+ Pulmonary: Inspection/effort: nonlabored, Thoracoto my wound closed with sutures c/d/i.Mild redness around sutures, no drainage. 2 wounds adjacent to site packed WV - intact with good seal, draining minimal serous fluid.WV last exchaged at bedside 03/27. IS: 1999/0 GI/Nutrition: Abdominal exam: soft nontender, non-distended Type [...] thigh pain- radiological images with no abnormality. 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 Injuries/Problems: Consults/Plans: 1. Left rib fractures 1-11 1. VEP, MMP, IS 2500 at goal, continue MMPC; s/p rib plating 02/13 2. Left pneumothorax 2. s/p L vidhi st tube 02/13; pt d/c'd 02/18-->acute pleural effusion/hemothorax--> L chest tube replaced 02/21. OR 02/21 thor acotomy, decorticatioin; OR 02/24 Reopening of left anteriorolateral thoracotomy wound, washout, left chest WVE; s/p washout 03/18 3. Open left anterolateral thoracotomy w ound 3. Multiple WVE and washouts (03/03, 03/06, 03/08, 03/11, 03/18, 03/21). Thoracotomy wound closed 03/21. NEXT WVE 03/30 4. T3 superior endplate fracture and Lef t TP fx 4. ORS spine: no bracing; follow up with Dr. Navarro in 3 weeks, upright Tspine Xray (RESOLVED) 5. RIGHT leg laceration 5. Wa shout and closure with prolene in ED, sutures removed 02/25, WOUND DEHISCED (finding appreciated on 03/13, patient s/p washout on 03/14 of the RLE wound along with th e left anterolateral thoracotomy wound). Continue simple topical dressing (4x4, paper tape) daily. 6. Left clavicle fracture 5. ORS: s/p ORIF 02/12 (RESOLVED) 7. Left scapular fracture 6. ORS: NWB LUE, pain control, PT exercises (RESOLVED) 8. Diaphragm laceration 7. S/p repair 02/13 (RESO LVED) 9. Left Flank HTA 8. Hb stable, continue to monitor l abs Additionally, will ... -Acute trauma pain: MMPC, still requring most PRN doses of norco/oxy, REGINA, continue regimen as of now -chronic alcohol - continue current med s, patient currently lying in bed, sitter by bedside. Clonidine d/raffi. Will start weaning propranolol. Dispo: Patient will be discharged to the TCU to day for WV care (change q3d). See note above. He will f/u with trauma clinic and Ortho clinic Extracted from:Title: Clinical Document Author: Romeo Kauffman MD Date: 03/21/16 OPERATIVE REPORT DATE: 03/21/2016 TIME: 18:30 PRE-OPERATIVE DIAGNOSIS: Multiple left chest wall wounds. POST-OPERATIVE DIAGNOSIS: 1. Left posterolateral thoracotomy open wound (24 cm x 3 cm ). 2. Left chest subcutaneous seroma cavit y (24 cm x 14 cm) with counter incision x 2. PROCEDURE: 1. Delayed primary closure of left posterolateral thoracoto my wound. 2. Washout and NPWT exchange of seroma cavity wound. SURGEON: Berry Kauffman MD RESIDENT: Beronica Deleon MD ANESTHESIA: GETA. IV FLUIDS: 400 mL crytalloid. ESTIMATED BLOOD LOSS: Minimal. URINE OUTPUT: ND. SPECIMENS: None. DRAINS: None. PROSTHESIS: None. PACKING: Black NPWT sponge. INDICATIONS FOR PROCEDURE: 56M admitted to [facility] following a 20-foot fall. He suffered multiple left rib fractures requiring operative fixation, as well as a loculated left hemothorax requiring poste rolateral thoracotomy. As a result of nv s multiple operations, he has an open thoracotomy wound and subcutaneous seroma cavity that are being managed by NPWT. He requires NPWT exchange in the OR. DESCRIPTION OF PROCEDURE: The patient w as taken to the operating room and placed [...] tape. The left chest was prepped with Betadin e and draped in a standard sterile fashion. 2 gm Ancef was administered for pre-operative antibiotics. A surgical time-out was completed in accordance with instit utional protocol, confirming the patient, procedure, side, a nd site. The wounds were explored. The thoracotom y wound measured 24 cm x 3 cm and was clean with a healthy, granulating base. There was no tunneling or undermining. The seroma cavity was measured at 24 cm in th e craniocaudal dimension and 14 cm in th e transverse dimension. There were two counter incisions made at a previous operation that had been packed with black NPWT sponge to facilitate closure of the cav ity. The base of the wound appeared glenn n with healthy granulation tissue. Both wounds were irrigated with normal saline. The thoracotomy wound was mechanically d ebrided with a sterile scrub brush. The wound [...] co nnected to continuous suction at 125 mmH g. Sterile gauze dressing was applied to the throacotomy wound and secured with Medipore tape. General anesthesia was discontinued. The patient was returned to th e supine position and extubated on the O R table without incident. There were no immediate complications. Sponge and instrument counts were correct x 2 as reported by the OR staff. COMPLICATIONS: None. DISPOSITION: Stable to PACU. Extracted from:Title: PM&R Consult Note Author: Prudence Martínez MD Date: 03/13/16 Physical Medicine and Rehabilitation Consultation Patient Name: Jose Montana Patient Referring physician: Keyur Pickett DO Chief complaints/Reason for Consult: Ass essment for rehab needs, due to functional decline related to multiple trauma. The patient's chart was reviewed and summarized to formulate this consult. History of Present Illness: Patient is 56 yo male w PMH of alcohol use who [facility] to [facility] after a fall from 20 ft ladder on the left side of his body due to loss of balance ( trauma level 1). Found to have follo wing injuries and managements; T3 superi or endplate fracture, left TP fx s/p ORS [...] s/p washout and closure at ED, and l eft pneumothorax and open left anterolateral thoracotomy wound s/p chest tube(CT) which d/c'd on 02/18 but complicated with acute pleural effusion/hemothorax that needed CT and thoracotomy, decorti cation with several wash out and wound vac placement (last one 03/11). Hospital course complicated with + cx for pleural effusion with enterobacter and was on cef tazidime. Also during hospitalization fo und out he has hep C positive , hepotology consulted who recommend outpatient follow up and treatment. PM&R is consulted to assess this patient's rehabilitation needs. Functional history: Previously patient was independent with activities of daily living and did not require any assistive living devices prior to injury. Lives alone in single level home. No family support after discharge. He us ed to live in [facility] in one story house which was rented by him, he reports since he is in the hospital about a month, that house has been rented by process owner . Then he does not have anywhere to go after discharge. Current functional status: OT 03/10: Transfers : MIN A (Comment: with [employer] x2 [Patt Mosley OT - 03/10/2016 16:07 PERSONAL CHEF] ) Grooming : Activity does not occur (Comment: Pt refusing, responds physical ly to [employer] [place] A [Patt Mosley OT - 03/10/2016 16:07 PERSONAL CHEF] ) Room Mobility : MOD A (Comment: with HHAx2 [Patt Mosley OT - 03/10/2016 16:[address]] ) PT 03/11: Completed gait training (~200ft) and uns teady requiring constant verbal and tactile assistance to maintain midline as LANGUAGE ASST observed pt to drift to L when ambulating. Supine to Sit : MOD A (Comment: x2 [Yessenia Solis LANGUAGE ASST - 03/11/2016 15:31 PERSONAL CHEF] ) Sit to Supine : MIN A Transfer Sit to Stand Sit to Stand : MIN A Stand to Sit : MIN A Speech 03/09: Diet Recommended : 1. Regular diet and NECTAR thick liqui ds Past Medical History: Denies any PMH, Dm, [...] mg SUB-Q Q12H 02/17/16 9:48 ipratropium (ipratropium 0 .02% inhalation solution) 0.5 mg NEB RQ8H 02/24/16 9:00 lidocaine topical (Lidoder m 5% topical film (patch)) 1 patch TOP Daily 02/21/16 9:00 multivitamin 1 tab PO Daily 02/25/16 10:00 nicotine 14 mg TOP Daily 02/23/16 9:15 oxyCODONE (oxyCODONE 5 mg oral tablet) 10 mg P O Q6Hnow 02/25/16 10:00 propranolol 10 mg PO [...] 16:55 iodixanol (Visipaque 320mg/ml) 100 mL IVP ONC ALL 03/08/16 14:00 sugammadex 200 mg IV ONCALL [...] or chills. - HEENT: Denies headache, dizziness, jessie tigo,+ changes in vision due to losing his glasses, no changes in hearing, difficulty eating, and difficulty swallowing. - CV: Denies dyspnea on exertion, palpitations or chest pain . - Pulm: Denies shortness of breath or cough. - GI: Denies nausea, vomiting, constipat ion, diarrhea, abdominal pain, or bowel incontinence. Last BM: yesterday - : Denies dysuria, hematuria, or urinary incontinence.use s urinal. - Neuro: Denies seizures, tremor, +numbn ess over left sdie of chest and right knee down - MSK: Denies weakness, no joint pain. - Psych:+ anxiety, + depressed mood. - Skin: + wound vac on left chest OBJECTIVE Physical Examination: Vitals Tmp(F) Tmp(C) Ttype B P MAP Pulse RR SpO2 FIO2 ETCO2 03/13 [...] NCAT, poor dentitians Mucous membranes moist. Neck s upple. CV: RRR, +S1/S2, no murmurs, rubs, or gallops Pulm: no labored breathing on room air GI: soft, NT, ND, normoactive bowel sounds, no rigidity or g uarding : no freeman MSK: Bulk: normal ROM/Tone: normal Neuro: Mental Status: Awake, alert, oriented, a nswering questions and following commands easily Speech: fluent CN: CN [...] (Last four charted values) WBC H 14.1 (NOV 2 3) H 17.1 (NOV ) H 16.0 (NOV ) H 13.6 (NOV 20) Hgb L 9.8 (NOV ) L 10.8 (NOV ) L 9.3 (NOV 21) L 10.0 (NOV 20) Hct L 30.4 (NOV 2 3) L 32.8 (NOV 22) L 28.3 (NOV 21) L 30.2 (NOV 20) Plt H 659 (NOV ) H 788 (NOV ) H 620 (NOV ) H 553 (NOV 20) Na 135 (NOV ) 141 (NOV ) 139 (NOV ) 142 (NOV 19) K 4.2 (NOV ) 4.8 (NOV ) 4.8 (NOV 20) 4.6 (NOV 19) CO2 L 22 (NOV 23) L 23 (NOV 21) 28 (NOV 20) 26 (NOV 19) Cl 103 (NOV ) 107 (NOV ) 103 (NOV 20) 106 (NOV 19) Cr 0.59 (NOV ) 0.56 (NOV ) 0.56 (NOV 20) L 0.48 (NOV 19) BUN 21 (NOV ) 16 (NOV 21) 17 (NOV 20) 15 (NOV 19) Glucose Random 90 (NOV ) H 110 (NOV 21) H 105 (NOV 20) H 110 (NOV ) Mg 2.2 (NOV ) 2.2 (NOV 21) 2.2 (NOV 20) 2.1 (NOV 19) Phos 3.3 (NOV ) 2.8 (NOV 21) 3.0 (NOV 20) 2.9 (NOV 18) Ca L 8.3 (NOV ) 8.7 (NOV ) 8.6 (NOV 20) L 8.0 (NOV 19) PT 14.0 (NOV 08) 13.2 (NOV 02) INR 1.06 (NOV 08) 0.98 (NOV 02) PTT 35.4 (NOV 08) Troponin <0.02 (FEB 26) CK MB 1.0 (FEB 26) Total CK H 238 (FEB 26) Pertinent imaging: Patient's diagnostic imaging and reports have been personally reviewed and visualized. ASSESSMENT and PLAN 56 yo male w PMh of alcohol use s/p fall from 20 ft ladder with multiple trauma, no LOC. IMPAIRMENTS: Multiple trauma Alcoholism Dysphagia [...] ech therapy goals of advancing diet as a ppropriate and evaluation with treatment for cognitive deficit. Pt appears to be able to tolerate 3 hours of therapy daily. #Possible TBI/ cognitive deficit: - Recommend to consult speech therapy for evaluation a nd treatment of cognition -Recommend to decrease the dose of propr anolol and clonidine if it started for neurostorming [...] ED, and -left pneumothorax and open left anterol ateral thoracotomy wound s/p chest tube(CT) which d/c'd on 02/18 but complicated with acute pleural effusion/hemothorax that needed CT and thoracotomy, decor tication with several wash out and wound vac placement (03/03, 03/06, 03/08 and 03/11). # Dysphagia - continue regular with nectar thick liquid - Speech therapy to advance diet at appropriate with serial swallow study # Risk of constipation: - Patient should be started on a bowel regimen to yiel d a daily bowel movement. -Recommend to start colace and senna and monitor for regular BM. # Risk of Neurogenic Bladder: - Recommend to perform post void residua ls. Straight cath if PVRs greater than 150cc. # Pain: Pain may be a limiting factor to participation in therapies and recovery. -Currently on scheduled tylenol, lidocai ne patch and oxycodone, recommend to taper oxycodone as tolerated since he is too sleepy during the day # Risk of pressure ulcer: - Turn patient q2h and routine skin checks qshift. - continue PRAFO wearing schedule -left sided chest wound vac # DVT Prophylaxis -Agree with lovenox # Disposition: He will benefit of out p atient PT/OT vs home health PT/OT with possible Balance program as outpatient. Prudence Martínez MD Physical Medicine and Rehabilitation [facility] PGY-4 Addendum by Irina Austin MD on 03/16/2016 11:48 PM&R ATTENDING ATTESTATION / IRINA AUSTIN MD ([phone], Pager [phone]): I performed a history and physical exami nation of the patient and discussed the management with the resident. I reviewed the note and agree with the documented findings and plan of care with any exceptions below. I discussed results of the consult with transplant case manager. Extracted from:Title: Trauma Surgery H&P Author: Anthony Shields MD Date: 02/12/16 Trauma Surgery History and Physical Admitting Surgeon: Dr. Pickett Referring Physician: Vamsi Frias MD Time of Consultation: 02/12/2016 1124am Time seen: 1124am Admission Diagnosis: level 1 trauma, multiple rib fxs Chief Complaint: "my chest hurts" History of Present Illness: [id number], MALE is an approximately 51 y ear old male s/p fall from 20ft brought in by [employer] as a level 1 trauma. Reportedly, lost balance and fell from 20 foot ladder - landing primarily onto the L side of his body, negative LO C. Upon arrival to ED, complaining of constant, [...] HEENT: No nosebleeds, visual disturbances, or hearing distur bances Respiratory: No wheezing, cough, or hemoptysis Cardiac: No tachycardia, dyspnea on exertion, or orthopnea Gastrointestinal: No nausea, vomiting, diarrhea, or constipa tion Urinary: No dysuria, hematuria, or incontinence Vascular: [...] 24 Hr Tmax: 97.7F (36.50c) at 02/11 11:2 4 Vital Signs are the last 5 in the past 48 hours. General: adult male intoxiated in mild distress se condary to pain Skin: superficial abrasions to upper kush k, BLE. obvious R supraclavicular deformity/swelling HEENT: normocephalic, atraumatic, trachea midline, nares pat ent Neck: supple, no JVD Lungs: equal chest expansion bilaterally , unlabored respirations. pain with deep inspiration Heart: sinus tachycardia Abdomen: soft, non-distended, non-tender : atraumatic, no blood Rectal: good tone, no gross blood Vascular exam: bilateral radial, DP/PT pulses intact and equ al MSK: moving all extremities without marisol s deficits, pain with RUE ROM - primarily [...] IMPRESSION: 1. Displaced left lateral 2-10 rib fract ures, with left-sided pneumothorax and left pulmonary hemorrhage. 2. On the second examination, there is p lacement of a left-sided chest tube with the tip positioned in the left lung apex on the final image. Improvement of the left pneumothorax after chest tube placement. 3. Subcutaneous soft tissue emphysema in the left chest wall . Repeat CXR IMPRESSION: 1. Displaced left lateral 2-10 rib fract ures, with left-sided pneumothorax and left pulmonary hemorrhage. 2. On the second examination, there is p lacement of a left-sided chest tube with the tip positioned in the left lung apex on the final image. Improvement of the left pneumothorax after chest tube placement. 3. Subcutaneous soft tissue emphysema in the left chest wall . CT SPINE IMPRESSION: 1. No acute abnormality in the cervical spine. 2. Tiny left apical pneumothorax, left-s ided chest tube, and left first rib fracture among other abnormalities are better evaluated on the separately dictated CT chest abdomen and pelvis study. CTH IMPRESSION: No acute intracranial injury. CT C/A/P IMPRESSION: 1. Left 1-11 rib fractures, with 3-5 mary ng segmental due to additional nondisplaced posterior rib fractures at the costovertebral junctions. Nondisplaced left seventh costochondral cartilage fracture. 2. Displaced left 9- 11 ribs result in t enting of the left hemidiaphragm, which may predispose to diaphragmatic injury, however without evidence of diaphragmatic rupture /tear at this time. 3. Small left hemothorax and small left pneumothorax with left chest tube tip at the left lung apex. 4. Comminuted left scapular and displaced left clavicle frac tures. 5. Minimal superior endplate compression fracture of T3, with a nondisplaced fracture of the left transverse process of T3. 6. Subcutaneous soft tissue emphysema ex tending from the lower neck/upper back extending into the left flank. 7. No acute intra-abdominal abnormality identified. EXAM: XR LEFT CLAVICLE 2 VIEWS EXAM: XR LEFT SHOULDER 3 VIEWS EXAM: XR LEFT HUMERUS 2 VIEWS IMPRESSION: 1. Displaced mid shaft left clavicle fracture with mild comm inution. 2. Comminuted left scapular body fractur e without articular surface extension to the glenoid. No glenohumeral dislocation. 3. No acute bony abnormality of the humerus. 4. Multiple left-sided rib fractures partially visualized. Thoracic XRAY upright IMPRESSION: Minimal superior endplate co mpression fracture of T3 and left T3 transverse process fracture better evaluated on prior chest CT. No significant change in vertebral body height on this upright film. Assessment/Plan: [id number], MALE is an approximately 51 y ear old male s/p fall from 20ft brought in by [employer] as a level 1 trauma. Reportedly, lost balance and fell from 20 foot ladder - landing primarily onto the L side of his body, negative LO C. Upon arrival to ED, primary survey - GCS 15, satting 100% on RA with absent L sided breath sounds on auscultation and CXR showing multiple L sided rib fx with associated pneumothorax - L 32Fr CT plac ed with good air return, 50cc bloody output. [...] MMP, VEP, IS (1000cc in ED; Goal 1500cc), review 3D imaging for possible rib plating 2. L pneumothorax 2. s/p L 32Fr CT placement, keep to sxn, f/u AM CXR 3. T3 SEP fx 3. ORS spine consult ed: upright T spine stable, no brace needed, f/u Dr. Navarro in 3wks, [place] for OOB 4. L leg laceration 4. washout an d closure with prolene in ED, will need removal in 10-14d 5. L clavicle fx, mid shaft , mild displ aced 5. ORS consulted: f/u recs 6. L scapular fx, body, communited witho ut extension into glenoid 6. ORS consulted: f/u recs 7. possible L diaphragm injury 7. to OR for dx laparoscopy, possible diaphragm repair, possible ex lap, possible thoracotomy and any additional indicated procedures Additionally, will: -Admit to SIMU 35 -Lactic acidosis: IVF resuscitation, 2.3 => 1L+mIVF => 3.0 => 1L+mIVF => f/u repeat -Hyponatremia: resolved on repeat BMP -Alcohol / Tobacco abuse: folate/thiamine with PRN valium, n icotine patch -Acute trauma pain: multimodal pain control -Acute blood loss anemia: trend H&H -Tertiary in AM Anthony Shields M.D. General Surgery #[id number] TRAUMA ATTENDING ADDENDUM: I have seen and examined patient with pr ovider and concur with their findings and plan as noted in bold underlined italics. Furthermore, said findings have been discussed with new home sales consultant services. I was present prior to arrival of rip t via en route trauma activation and accompanied patient continuously during primary and secondary trauma surveys and accompanied patient to CT scanner with traum a team, directing resuscitation efforts. I have personally reviewed images [id number] with in house attending trauma radiologists. TOTAL CRITICAL CARE TIME (excluding procedures): 32minutes DOS 02/12/2016 In addition: 1. acute trauma pain - start multimodal pain therapy 2. L pulmonary contusions - VEP/IS, judicious fluid utilizat ion 3. multiple L rib fx - will likely requi re rib plating given the potential for diaphragm injury at the lower left ribs, there is no evidence of injury at present however given imaging findings we will p frantz to take patient to OR on 02/13 for p lating of his lower left rib fx and examine the diaphragm intra-op for possible repair if indicated at that time. 4. left traumatic PTX - chest tube place d in the ER, cont to suction for now, repeat CXR in AM 5. high risk for VTE - will start lovenox now 6. hyponatremia - resolved, etiology lik licha secondary to dehydration, recheck lytes in AM Admit to ELI Pickett DO [id number] Plan of Care No Data Provided for This Section Social History Social History Date Source Social History TypeResponse 02/12/2016 [facility] Substance Abuse Use: Current. Type: Marijuana. Recreat ional Drug Route: Oral. Amount: 1/2 ounce a [...] Smoking Status Current every day smoker; Type: Cigarett es; Tobacco use per day: 20; Number of years: 40; Previous treatment: None; Ready to change: Yes; Exposed at work; Lives with someone who smokes; Cigarette Smokin g Last 365 Days Yes; Reg Smoking Cessation Counseling No 1all IV drugs- past history quit 10 yrs ago Social History TypeResponse 02/12/2016 [facility] Substance Abuse Use: Current. Type: Marijuana. Recreat ional Drug Route: Oral. Amount: 1/2 ounce a [...] Smoking Status Current every day smoker; Type: Cigarett es; Tobacco use per day: 20; Number of years: 40; Previous treatment: None; Ready to change: Yes; Exposed at work; Lives with someone who smokes; Cigarette Smokin g Last 365 Days Yes; Reg Smoking Cessation Counseling No 1all IV drugs- past history quit 10 yrs ago Family History No Data Provided for This Section Advance Directives No Data Provided for This Section Functional Status No Data Provided for This Section
--- OUTSIDE RECORDS SUMMARY | 2019-12-01 16:29 | XMS REPORT | Summary of Care ---
:1960 Author Organization [facility] Address [address] [place] [address] Care Team Providers Name Role Phone MD Rosa Primary Care Provider Reason for Visit Reason Comments Refill Request Encounter Details Date Type Department Care Team Description 09/11/2019 Refill [facility] and Kye Reynoso MD Refill Request Adult Primary Care- [address] [facility] 205 146 [facility] , [place] [address] 205 [place] [address] [phone] Allergies No Known Allergiesdocumented as of this encounter (statuses as of 09/11/2019) Medications Medication Sig Dispensed Refills Start Date End Date Status HYDROcodone-aceta TAKE BY MOUTH 0 02/10/2019 Active minophen 7.5-325 1 TABLET 2-3 mg per tablet TIMES A DAY NEEDED foLIC acid 1 mg Take 1 tablet 90 tablet 0 07/10/2019 Active tabletIndications by mouth : Acute alcoholic daily. gastritis without hemorrhage, Alcohol withdrawal syndrome without complication pantoprazole 40 Take 1 tablet 90 tablet 0 07/10/2019 Active mg EC by mouth tabletIndications daily. : Acute alcoholic gastritis without hemorrhage, Alcohol withdrawal syndrome without complication Magnesium Oxide Take 400 mg by 180 tablet 0 07/10/2019 Active 420 mg mouth 2 (two) TabIndications: times daily. Acute alcoholic gastritis without hemorrhage thiamine 100 mg Take 1 tablet 90 tablet 0 07/10/2019 Active tabletIndications by mouth : Alcohol daily. withdrawal syndrome without complication, Acute alcoholic gastritis without hemorrhage KCL 20 mEq Take 1 tablet 90 tablet 0 07/10/2019 Acti ve tabletIndications by mouth : Alcohol daily. withdrawal syndrome without complication venlafaxine XR TAKE 1 CAPSULE 90 capsule 0 07/10/2019 Active 37.5 mg 24 hr BY MOUTH EVERY capsuleIndication DAY WITH s: Chronic pain BREAKFAST due to trauma, Adjustment disorder with depressed mood NIFEdipine ER 30 Take 1 tablet 90 tablet 0 07/10/2019 Active mg by mouth tabletIndications daily. : Essential hypertension furosemide 20 mg Take 1 tablet 90 tablet 0 07/10/2019 Active tabletIndications by mouth : Localized daily. swelling of both lower legs, Essential hypertension lidocaine 5 % Apply 1 Patch 90 Patch 0 07/10/2019 A ctive (700 mg/patch) to area(s) patchIndications: daily. Chronic pain due to trauma Diclofenac Sodium Apply to 100 g 1 08/14/2019 A ctive (VOLTAREN) 1 % area(s) 4 gelIndications: (four) times Chronic pain due daily. Apply 4 to trauma g qid lisinopril 30 mg Take 1 tablet 90 tablet 0 09/11/2019 Active tabletIndications by mouth : Essential daily. hypertension lisinopril 30 mg Take 1 tablet 90 tablet 0 07/10/2019 09/11/19 2 Discontinued tabletIndications by mouth 0 (R eorder) : Essential daily. hypertension documented as of this encounter (statuses as of 09/11/2019) Active Problems Problem Noted Date Acute alcoholic gastritis without hemorrhage 0 Adjustment disorder with depressed mood 07/10/2019 Tobacco abuse 07/10/2019 Swelling 03/25/2019 Alcohol withdrawal 03/23/2019 Dental caries 10/11/2018 Chronic pain due to trauma 10/11/2018 Chronic hepatitis C without hepatic coma 10/11/2018 Chest pain 08/07/2018 Alcohol withdrawal syndrome with complication 08/07/19 19 Essential hypertension 04/30/2018 Obesity due to excess calories with serious comorbidit y 04/30/2018 documented as of this encounter (statuses as of 09/11/2019) Social History Tobacco Use Types Packs/Day Years Used Date Current Every Day Smoker Cigarettes 1 40 Smokeless Tobacco: Never Used Alcohol Use Drinks/Week oz/Week Comments Yes Alcohol Habits Answer Date Recorded How often do you have a drink containing 4 or more times a w crow 03/23/2019 alcohol? How many drinks containing alcohol do you have 7 to 9 03/23/2019 on a typical day when you are drinking? How often do you have six or more drinks on one Daily or toya ost daily 03/23/2019 occasion? Sex Assigned at Date Recorded Not [...] with 30 01/08/2016 + pack year history Depression Screening 10/22/2019 10/21/2018 INFLUENZA VACCINE (Season Ended) 2019 HEPATITIS C (HCV) SCREEN Completed 08/07/2018 documented as of this encounter Results Not on filedocumented in this encounter Visit Diagnoses Diagnosis Essential hypertension Unspecified essential hypertension documented in this encounter Insurance Payer Benefit Plan / Subscriber ID Effective Phone Address T ype Group Dates [employer] xxxxxxxxx 2017-Jessica [place] [id number] [place] [address] documented as of this encounter
--- OUTSIDE RECORDS SUMMARY | 2019-12-01 16:29 | XMS REPORT | Summary of Care ---
:1960 Author Organization [facility] Address [address] [place] [address] Care Team Providers Name Role Phone MD Rosa Primary Care Provider Reason for Visit Reason Comments Rx Concern/Question Encounter Details Date Type Department Care Team Description 10/06/2019 Telephone [facility] Pediatric Kye Lee MD Rx Concern/Question and Adult Primary Care- [address] [facility] [address] [address] [address], [address] [place] [address] [phone] Allergies No Known Allergiesdocumented as of this encounter (statuses as of 10/07/2019) Medications Medication Sig Dispensed Refills Start Date End Date Status HYDROcodone-acetamino TAKE BY MOUTH 1 0 02/10/2019 Active phen 7.5-325 mg per TABLET 2-3 TIMES A tablet DAY NEEDED foLIC acid 1 mg Take 1 tablet by 90 tablet 0 07/10/2019 Active tabletIndications: mouth daily. Acute alcoholic gastritis without hemorrhage, Alcohol withdrawal syndrome without complication pantoprazole 40 mg EC Take 1 tablet by 90 tablet 0 07/10/2019 Active tabletIndications: mouth daily. Acute alcoholic gastritis without hemorrhage, Alcohol withdrawal syndrome without complication Magnesium Oxide 420 Take 400 mg by 180 tablet 0 07/10/2019 Active mg TabIndications: mouth 2 (two) Acute alcoholic times daily. gastritis without hemorrhage thiamine 100 mg Take 1 tablet by 90 tablet 0 07/10/2019 Active tabletIndications: mouth daily. Alcohol withdrawal syndrome without complication, Acute alcoholic gastritis without hemorrhage KCL 20 mEq Take 1 tablet by 90 tablet 0 07/10/2019 A ctive tabletIndications: mouth daily. Alcohol withdrawal syndrome without complication venlafaxine XR 37.5 TAKE 1 CAPSULE BY 90 capsule 0 07/10/2019 Active mg 24 hr MOUTH EVERY DAY capsuleIndications: WITH BREAKFAST Chronic pain due to trauma, Adjustment disorder with depressed mood furosemide 20 mg Take 1 tablet by 90 tablet 0 07/10/2019 Active tabletIndications: mouth daily. Localized swelling of both lower legs, Essential hypertension lidocaine 5 % (700 Apply 1 Patch to 90 Patch 0 07/10/2019 Active mg/patch) area(s) daily. patchIndications: Chronic pain due to trauma Diclofenac Sodium Apply to area(s) 100 g 1 08/14/2019 Active (VOLTAREN) 1 % 4 (four) times gelIndications: daily. Apply 4 g Chronic pain due to qid trauma lisinopril 30 mg Take 1 tablet by 90 tablet 0 09/11/2019 Active tabletIndications: mouth daily. Essential hypertension NIFEDIPINE ER 30 mg TAKE 1 TABLET BY 30 tablet 3 09/11/2019 Active tabletIndications: MOUTH EVERY DAY Essential hypertension documented as of this encounter (statuses as of 10/07/2019) Active Problems Problem Noted Date Acute alcoholic [...] as of this encounter (statuses as of 10/07/2019) Social History Tobacco Use Types Packs/Day Years Used Date Current Every Day Smoker Cigarettes 1 40 Smokeless Tobacco: Never Used Alcohol Use Drinks/Week oz/Week Comments Yes Alcohol Habits Answer Date Recorded How often do you have a drink containing 4 or more times a w [place] 03/23/2019 alcohol? How many drinks containing alcohol [...] / Subscriber ID Effective Phone Address T e Group Dates [employer] xxxxxxxxx 2017-Jessica HAR[place] [id number] [place] [address] documented as of this encounter
--- OUTSIDE RECORDS SUMMARY | 2019-12-01 16:29 | XMS REPORT | Summary of Care ---
:1960 Author Organization [facility] Address [address] [place] [address] Care Team Providers Name Role Phone MD Rosa Primary Care Provider Reason for Visit Reason Comments Assessment TRIAGE Encounter Details Date Type Department Care Team Description 09/22/2019 Telephone [facility] Pediatric Kye Lee MD Assessment (TRIAGE) and Adult Primary Care- [address] [facility] [address] [address], [address] [place] [address] [phone] Allergies No Known Allergiesdocumented as of this encounter (statuses as of 09/22/2019) Medications Medication Sig Dispensed Refills Start Date [...] as of this encounter (statuses as of 09/22/2019) Active Problems Problem Noted Date Acute alcoholic [...] as of this encounter (statuses as of 09/22/2019) Social History Tobacco Use Types Packs/Day Years Used Date Current Every Day Smoker Cigarettes 1 40 Smokeless Tobacco: Never Used Alcohol Use Drinks/Week oz/Week Comments Yes Alcohol Habits Answer Date Recorded How often do you have a drink containing 4 or more times a w [place] 03/23/2019 alcohol? How many drinks containing alcohol [...] xxxxxxxxx 2017-Jessica [place] [id number] [place] [address] documented as of this encounter
--- OUTSIDE RECORDS SUMMARY | 2019-12-01 16:29 | XMS REPORT | Summary of Care ---
:1960 Author Organization [facility] - Health Address [address] [place] [address] Care Team Providers Name Role Phone MD Rosa Primary Care Provider Encounter Details Date Type Department Care Team Description 10/07/2019 Orders Only [facility] Doctor Unassigned, No [address] [facility] [address] [address] [place] [address] Allergies No Known Allergiesdocumented as of this encounter (statuses as of 10/29/2019) Medications Medication Sig Dispensed Refills Start Date [...] as of this encounter (statuses as of 10/29/2019) Active Problems Problem Noted Date Acute alcoholic [...] as of this encounter (statuses as of 10/29/2019) Social History Tobacco Use Types Packs/Day Years Used Date Current Every Day Smoker Cigarettes 1 40 Smokeless Tobacco: Never Used Alcohol Use Drinks/Week oz/Week Comments Yes Alcohol Habits Answer Date Recorded How often do you have a drink containing 4 or more times a w [place] 03/23/2019 alcohol? How many drinks containing alcohol [...] Done Comments PNEUMOCOCCAL 0-64 YEARS COMBINED SERIES ( - 1967 PPSV23) DTaP,Tdap,and Td Vaccines (1 - Tdap) 01/08/1972 Depression Screening 1973 COLONOSCOPY 2011 Zoster Recombinant Vaccine (SHINGRIX) (1 of 2) 2011 LUNG CANCER SCREEN: Recommended for age 55-80 with 30 01/08/2016 + pack year history INFLUENZA VACCINE (#1) 2019 HEPATITIS C (HCV) SCREEN Completed 08/07/2018 documented as of this encounter Procedures Procedure Name Priority Date/Time Associated Diagnosis Comme nts MEDICATION CORRESPONDENCE Routine 10/07/2019 12:01 AM CDT documented in this encounter Results Not on filedocumented in this encounter Insurance Payer Benefit Plan / Subscriber ID Effective Phone Address T ype Group Dates [employer] xxxxxxxxx 2017-[address] [place] [id number] [place] [address] documented as of this encounter
--- OUTSIDE RECORDS SUMMARY | 2019-12-01 16:29 | XMS REPORT | Summary of Care ---
:1960 Author Organization [facility] Address [address] [place] [address] Care Team Providers Name Role Phone MD Rosa Primary Care Provider Reason for Visit Reason Comments Rx Concern/Question Encounter Details Date Type Department Care Team Description 10/06/2019 Telephone [facility] Pediatric Kye Lee MD Rx Concern/Question and Adult Primary Care- [address] [facility] [address] [address] [address], [address] [place] [address] [phone] Allergies No Known Allergiesdocumented as of this [...] containing 4 or more times a w augustine 03/23/2019 alcohol? How many drinks containing alcohol [...] xxxxxxxxx 2017-Jessica HARVE[place] [id number] [place] [address] documented as of this encounter
--- OUTSIDE RECORDS SUMMARY | 2019-12-01 16:29 | XMS REPORT | Summary of Care ---
:1960 Author Organization [facility] Address [address] [place] [address] Care Team Providers Name Role Phone MD Rosa Primary Care Provider Reason for Visit Reason Comments Authorization denial for Lidocain 5% Encounter Details Date Type Department Care Team Description 10/07/2019 Telephone [facility] Pediatric Kye Lee A uthorization (denial and Adult Primary MD for Lidocain 5%) Care- [address] [facility] [address], [address] [place] [address] [place] [phone] [address] [phone] Allergies No Known Allergiesdocumented as of this [...] containing 4 or more times a w [place] 03/23/2019 alcohol? How many drinks containing alcohol [...] xxxxxxxxx 2017-Jessica [place] [phone] [place] [address] documented as of this encounter
--- OUTSIDE RECORDS SUMMARY | 2019-12-01 16:29 | XMS REPORT | Continuity of Care Document ---
:1960 Author Organization [facility] t Address [address] [place] [address] Care Team Providers Name Role Phone Rosa VAZ Attending Clinician Doctor Unassigned, Name Attending Clinician Unavailable Kizzy Attending Clinician Maurice Pickett Attending Clinician Kizzy Admitting Clinician Maurice Pickett Admitting Clinician Problems Condition Condition Condition Status Onset Resolution Last Treating Co mments Source Name Details Category Date Date Treatment Clinician Date MULTIPLE Diagnosis Active 2015-042016-05-18 M emoria RIB 2-15 22:31:00 l FRACTURES, MULTIPLE 00:00: He rmann CHEST RIB 00 WOUND VAC FRACTURES, CHEST WOUND VAC Active 03/30/2016 [facility] Diagnosis Active 2015-042016-02-12 Mem oria 0-29 13:07:00 l FALL 00:00: Levi 00 Active 02/12/2016 [facility] MULT LT Diagnosis Active 2015-042017-04-10 Me moria SIDED RIB 0-29 13:09:00 l FXS,PTX,CH MULT LT 00:00: Her benjamin EST SIDED RIB 00 TUBE,S/P FXS,PTX,CH EST TUBE,S/P Active 02/12/2016 [facility] LIFE Diagnosis Active 2015-042017-04-10 Mem oria FLIGHT 0-29 13:18:00 l LIFE 00:00: Levi FLIGHT 00 Active 02/12/2016 [facility] Alcohol Problem Resolve 2016-05-18 Mem oria abuse d 01:19:00 l (disorder) Alcohol Her benjamin abuse (disorder) Resolved Problem 05/18/2016 [facility] Closed Problem Resolve 2016-05-18 Dat mark fracture d 01:19:00 l of eight Closed Flip n OR more fracture ribs of eight (disorder) OR more ribs (disorder) Resolved Problem 05/18/2016 [facility] Viral Problem Resolve 2016-05-18 Dat mark hepatitis d 01:19:00 l C Viral Dennison (disorder) hepatitis C (disorder) Resolved Problem 05/18/2016 [facility] MULTIPLE Diagnosis Active 2017-04-10 M emoria FRACTURES 13:09:00 l OF RIBS, MULTIPLE Herm erin BILATERAL, FRACTURES S OF RIBS, BILATERAL, S Active [facility] FRACTURE Diagnosis Active 2016-05-18 M emoria OF ONE 22:31:00 l RIB, UNSP FRACTURE Her benjamin SIDE, INIT OF ONE FOR RIB, UNSP SIDE, INIT FOR Active [facility] History of Past Illness Condition Condition Condition Status Onset Resolution Last Treating Co mments Source Name Details Category Date Date Treatment Clinician Date Hypertensi Problem Resolve 2011-2016-05-18 2016-05-18 Memoria ve d 1- 01:19:00 01:19:00 l disorder, 00:00: Levi systemic Hypertensi 00 arterial ve (disorder) disorder, systemic arterial (disorder) Resolved 04/16/2011 Problem 05/18/2016 [facility] Allergies, Adverse Reactions, Alerts This patient has no known allergies or adverse reactions. Social History Social Habit Start Date Stop Date Quantity Comments Source Social History 2016-02[facility]12 [facility] Medications Ordered Filled Start Stop Current Ordering Indication Dosage Frequency Signature Comments Components Source Medication Medication Date Date Medication? Clinician (SIG) Name Name Acetaminoph Yes 1 tab, PO, Memoria en 300 MG / 1-30 Q6H, PRN l Codeine 22:37: Pain Score Herm erin Phosphate 00 7-10, # 24 30 MG Oral tab, 0 Tablet Refill(s) [Tylenol with Codeine #3] propranolol Yes 10 mg = 1 M emoria 10 mg oral 1-30 tab, PO, l tablet 22:29: Q8H, # 90 Flip n 00 tab, 0 Refill(s) Docusate Yes 100 mg = 1 Mem oria Sodium 100 1-30 cap, PO, l MG Oral 22:29: Daily, # Flip n Capsule 00 30 cap, 0 Refill(s) Lidocaine Yes 1 patch, Dat mark 0.05 MG/MG 1-30 TOP, l Transdermal 22:29: Daily, Herm erin Patch 00 Remove after 12 hours, # 30 patch, 0 Refill(s) lisinopril Yes 10 mg = 1 Me moria 10 mg oral 1-30 tab, PO, l tablet 22:29: Daily, # [place] 00 30 tab, 0 Refill(s) gabapentin Yes 800 mg = 2 M emoria 400 MG Oral 1-30 cap, PO, l Capsule 22:29: Q8H, # 30 Dulce Maria nn 00 cap, 0 Refill(s) Sodium No 250 mL, Memoria Chloride 05-06 Route: l 0.9% IV 06:17: IVPB, Denn[place] 00 Start date: 05/06/16 0:17:00 [employer], Duration: 30 day, Stop date: 06/05/16 0:16:00 [employer], PRN Line Flush BD Normal No Notes: Memori a Saline 05-06 (Same as: l Flush 06:17: BD Denn[place] Posiflush) tramadol No Notes: Not Mem oria hydrochlori 05-06 to exceed l de 50 MG 06:08: 400mg/day. Her benjamin Oral Tablet 00 (Same As: Ultram) Dilaudid No 0.5 mg, Memori a -19 0.5 mL, l 19:48: Route: Levi 00 IVP, Drug form: INJ, ONCE, Dosing Weight 100, kg, Priority: STAT, Start date: 05/04/16 13:48:00 [employer], Stop date: 05/04/16 13:48:00 [employer] Lidocaine No 1 spray, Dat mark Hydrochlori 05-04 Route: l de 20 MG/ML 18:11: TOP, ONCE, Dennison Topical 00 Start [place] date: 05/04/16 12:11:00 [employer], Stop date: 05/04/16 12:11:00 [employer] Dilaudid No 1 mg, Memoria 05-04 Route: l 17:57: IVP, ONCE, Levi 00 Dosing Weight 100, kg, PRN Other -See Comment, Start date: 05/04/16 11:57:00 [employer] lidocaine No Notes: Memori a 05-04 Preservati l 14:15: ve free. Levi 00 (Same as: Xylocaine- MPF) Acetaminoph No Notes: Dat mark en 325 MG / 05-02 (Same as: l Hydrocodone 18:47: [place] Dulce Maria nn Bitartrate 00 325/5) Do 5 MG Oral not exceed Tablet 4gm/day of [[place] acetaminop 5/325] hen. lidocaine No 1 appl, Memor ia 2% 05-01 Route: l injectable 22:05: TOP, Dennison solution 00 Dosing Weight 100, kg, Daily, PRN Wound Care, Start date: 05/01/16 16:05:00 [employer], Duration: 30 day, Stop date: 05/31/16 16:04:00 [employer] Dilaudid No 1 mg, 1 Memori a 1-16 mL, Route: l 22:00: IVP, Drug Levi 00 form: INJ, Daily, Dosing Weight 100, kg, PRN Pain Score 4-6, 30 mins before dressing change, Start date: 05/01/16 16:00:00 [employer], Duration: 30 day, Stop date: 05/31/16 15:59:00 [employer] Morphine No Notes: Memoria -16 (Same l 21:06: as:MORPhin [place] 00 e Sulfate) tramadol 50 No Notes: Not Memoria mg oral -14 to exceed l tablet 18:33: 400mg/day. Dulce Maria nn 00 (Same As: Ultram) tramadol No Notes: Not Mem oria hydrochlori 1-14 to exceed l de 50 MG 15:59: 400mg/day. Her benjamin Oral Tablet 00 (Same As: Ultram) Morphine No Notes: Memoria 1-13 (Same l 20:41: as:MORPhin Levi 00 e Sulfate) Acetaminoph No Notes: Dat mark en 325 MG / 04-27 (Same as: l Hydrocodone 03:00: [place] Dulce Maria nn Bitartrate 00 325/5) Do 5 MG Oral not exceed Tablet 4gm/day of [[place] acetaminop 5/325] hen. Acetaminoph No Notes: Dat mark en 325 MG / 04-26 (Same as: l Hydrocodone 22:37: [place] Dulce Maria nn Bitartrate 00 325/5) Do 5 MG Oral not exceed Tablet 4gm/day of [[place] acetaminop 5/325] hen. Dilaudid No 0.5 mg, Memori a 04-26 Route: l 22:07: IVP, ONCE, Dosing Weight 100, kg, Priority: STAT, Start date: 04/26/16 16:07:00 [employer], Stop date: 04/26/16 16:07:00 [employer] Fentanyl No Notes: Memoria 04-26 (Same as: l 21:13: Sublimaze) Preservat stewart free. Flumazenil No Notes: Memor ia 04-26 (Same as: l 21:13: Romazicon) Hydromorpho No 0.5 mg, Mem oria ne 11 0.5 mL, l 21:13: Route: Levi 00 IVP, Drug form: INJ, Q5Min, Dosing Weight 100, kg, PRN Pain Score 7-10, Start date: 04/26/16 15:13:00 [employer], Duration: 4 doses or times, Stop date: 04/26/16 23:00:00 [employer] Naloxone No Notes: Memoria 04-26 Same as l 21:13: Narcan Ondansetron No Notes: Dat mark -11 (Same as: l 21:13: Zofran) MEDICATION WASTE Product Size: 4 mg Product Wasted: ___ mg Calcium No 1,000 mL, Memor ia Chloride 1-10 Rate: 25 l 0.0014 21:27: ml/hr, Denn[place] MEQ/ML / 00 Infuse Potassium over: 40 Chloride hr, Route: 0.004 IV, Dosing MEQ/ML / Weight 100 Sodium kg, Total Chloride Volume: 0.103 1,000, MEQ/ML / Start Sodium date: Lactate 04/25/16 0.028 15:27:00 MEQ/ML [employer], Injectable Duration: Solution 30 day, Stop date: 05/25/16 15:26:00 [employer] Habitrol No Notes: Memoria - (Same as: l 21:09: Habitrol) Levi 00 "Remove old patch before applicatio n of new patch" WASTE: F/P - P Waste Black; E - P Waste Black sodium No Notes: Memoria hypochlorit -03 (Dakin's l e topical 23:00: (0.125%=1/ He rmann 0.125% 00 4 solution strength) 473ml top SOLN) For external use only. Note: quarter strength = 0.125% sodium hypochlori te. Lisinopril No Notes: Memor ia -02 (Same as: l 15:00: Prinivil, Dennison 00 Zestril) Acetaminoph 2015-04 No Notes: Do M emoria en 325 MG / 2-30 not exceed l Hydrocodone 18:00: 4gm/day of Dennison Bitartrate 00 acetaminop 10 MG Oral hen. Tablet (Same as: [[place] 10/325] 325/10) lidocaine 2015-04 No Notes: Memori a topical 2-28 Apply only l patch (5% 15:00: once for Herm erin film) 00 up to 12 hours in a 24-hour period (12 hours on and 12 hours off). (Same as: Lidoderm) "Remove old patch before applicatio n of new patch" Oxycodone 2015-04 No Notes: Memori a Hydrochlori 2-28 (Same as: l de 5 MG 03:00: Roxicodone Herm erin Oral Tablet 00 ) remove 2015-04 No Notes: Memoria patch 2-28 Remove l 03:00: patch 12 Dennison 00 hours after applicatio n each day. Roxicodone 2015-04 No Notes: Memor ia 2-28 (Same as: l 01:38: Roxicodone Denn[place] 00 ) Roxicodone 2015-04 No Notes: Memor ia 2-18 (Same as: l 22:01: Roxicodone Levi 00 ) Nicotine 2015-04 No Notes: Memoria 2-17 (Same as: l 15:00: Habitrol) Dennison 00 "Remove old patch before applicatio n of new patch" WASTE: F/P - P Waste Black; E - P Waste Black multivitami 2015-04 No Notes: Dat mark n 2-17 (Same l 15:00: as:Thera) Levi 00 WASTE: F/P - Black; E - Municipal Trash Bin Take with food. Lidocaine 2015-04 No Notes: Memori a 0.05 MG/MG 2-17 Apply only l Transdermal 15:00: once for He rmann Patch 00 up to 12 hours in a 24-hour period (12 hours on and 12 hours off). (Same as: Lidoderm) "Remove old patch before applicatio n of new patch" Docusate 2015-04 No Notes: Memoria Sodium 100 2-17 (Same as: l MG Oral 15:00: Colace) Levi Capsule 00 (Do Not Crush) Lovenox 2015-04 No Notes: Memoria 2-17 (Same as: l 12:00: Lovenox) Dennison 00 Risperidone 2015-04 No Notes: Dat mark 2-17 (Same as: l 03:00: Risperdal) Levi 00 quetiapine 2015-04 No Notes: Memor ia 2-17 (Same as: l 03:00: SEROquel) Denn[place] 00 Acetaminoph 2015-04 No Notes: Do M emoria en 325 MG / 2-17 not exceed l Hydrocodone 00:00: 4gm/day of Dennison Bitartrate 00 acetaminop 10 MG Oral hen. Tablet (Same as: [[place] 10/325] 325/10) Roxicodone 2015-04 No Notes: Memor ia 2-16 (Same as: l 23:08: Roxicodone Levi 00 ) Psyllium 2015-04 No Notes: Memoria 2-16 (Same as: l 23:00: Metamucil) Levi 00 Mix in 8 oz liquid with meal. POLYETHYLEN 2015-04 No Notes: Dat mark E GLYCOL 2-16 Dissolve l 3350 23:00: in 8 oz of Levi 00 water or juice. (Same as: Miralax) Methocarbam 2015-04 No Notes: Dat mark ol 2-16 (Same l 23:00: as:Robaxin ) Propranolol 2015-04 No Notes: Dat mark 2-16 Give with l 22:00: food. (Same as: Inderal) gabapentin 2015-04 No Notes: Memor ia 400 MG Oral 2-16 (Same as: l Capsule 22:00: Neurontin) Hydralazine 2015-04 No Notes: Dat mark Hydrochlori 2-16 (Same as: l de 25 MG 21:00: Apresoline Her benjamin Oral Tablet 00 ) May interfere w/enteral feedings Take With Food. Enoxaparin 2015-04 No 40 mg, 0.4 M emoria 2-16 mL, Route: l 21:00: SUB-Q, Drug form: INJ, [id number], Dosing Weight 100, kg, Start date: 03/31/16 15:00:00 [employer], Duration: 30 day, Stop date: 04/29/16 15:00:00 [employer] Oxycodone 2015-04 No Notes: Memori a Hydrochlori 2-16 (Same as: l de 5 MG 20:57: Roxicodone Herm erin Oral Tablet ) Haloperidol 2015-04 No Notes: Dat mark 2-16 (Same as: l 20:57: Haldol) gabapentin 2015-04 Yes 800 mg = 2 M emoria 400 MG Oral 2-16 cap, PO, l Capsule 16:45: Q8H, 0 Refill(s) gabapentin 2015-04 No PO, Q8H, 0 M emoria 800 MG Oral 2-16 Refill(s) l Tablet 16:39: haloperidol 2015-04 Yes 2 mg = 1 Me moria 2 mg oral 2-16 tab, PO, l tablet 16:39: TID, PRN as needed for agitation, 0 Refill(s) risperiDONE 2015-04 Yes 0.5 mg = 1 Memoria 0.5 mg oral 2-16 tab, PO, l tablet 16:39: Q12H, 0 Refill(s) QUEtiapine 2015-04 Yes 25 mg = 1 Me moria 25 mg oral 2-16 tab, PO, l tablet 16:39: Bedtime, 0 Dulce Maria nn 00 Refill(s) psyllium 2015-04 Yes 3.4 gm =, Dat mark 3.4 g/3.7 g 2-16 PO, BID, 0 l oral powder 16:39: Refill(s) H ermann 00 propranolol 2015-04 Yes 10 mg = 1 M emoria 10 mg oral 2-16 tab, PO, l tablet 16:39: Q8H, 0 Levi 00 Refill(s) POLYETHYLEN 2015-04 Yes 17 gm, PO, Memoria E GLYCOL 2-16 BID, 0 l 3350 16:39: Refill(s) Dennison enoxaparin 2015-04 Yes 40 mg = Dat mark 40 mg/0.4 2-16 0.4 mL, l mL 16:39: SUB-Q, Levi subcutaneou 00 [id number], s solution 0 Refill(s) Docusate 2015-04 Yes 100 mg = 1 Mem oria Sodium 100 2-16 cap, PO, l MG Oral 16:39: Daily, 0 Flip n Capsule 00 Refill(s) Oxycodone 2015-04 Yes 5 mg = 1 Dat mark Hydrochlori 2-16 tab, PO, l de 5 MG 16:39: Q4H, PRN Flip n Oral Tablet 00 Pain Score 7-10, 0 Refill(s) Nicotine 2015-04 Yes 14 mg = 1 Dat mark 2-16 patch, l 16:39: TOP, Levi 00 Daily, 0 Refill(s) Acetaminoph 2015-04 Yes 1 tab, PO, Memoria en 325 MG / 2-16 Q6H, 0 l Hydrocodone 16:39: Refill(s) H ermann Bitartrate 00 10 MG Oral Tablet [[place] 10/325] multivitami 2015-04 Yes 1 tab, PO, Memoria n 2-16 Daily, 0 l 16:39: Refill(s) Denn[place] 00 methocarbam 2015-04 Yes 750 mg = 1 Memoria ol 750 mg 2-16 tab, PO, l oral tablet 16:39: TID, 0 Herm erin 00 Refill(s) Lidocaine 2015-04 Yes 1 patch, Dat mark 0.05 MG/MG 2-16 TOP, l Transdermal 16:39: Daily, Herm erin Patch 00 Remove after 12 hours, 0 Refill(s) Clonidine 2015-04 No Notes: Memori a Hydrochlori 2-14 (Same As: l de 0.1 MG 03:00: Catapres) Her benjamin Oral Tablet 00 Robaxin 2015-04 No Notes: Memoria 2-12 (Same l 22:00: as:Robaxin Dennison 00 ) Dilaudid 2015-04 No Notes: Memoria 2-12 Same as l 21:27: Dilaudid Dennison 00 Oxycodone 2015-04 No Notes: Memori a Hydrochlori 2-11 (Same as: l de 5 MG 16:42: Roxicodone Herm erin Oral Tablet 00 ) lidocaine 2015-04 No Notes: Memori a topical 2-09 Apply only l patch (5% 23:00: once for Herm erin film) 00 up to 12 hours in a 24-hour period (12 hours on and 12 hours off). (Same as: Lidoderm) "Remove old patch before applicatio n of new patch" Dilaudid 2015-04 No Notes: Memoria 2-09 Same as l 18:11: Dilaudid Levi 00 Isolyte S 2015-04 No Notes: Memori a (PH 7.4) 2-09 (Same as: l 1000 mL 06:01: Isolyte S Dulce Maria nn 1,000 mL 00 PH 7.4) Ancef 2015-04 No 2 gm, Memoria 05-22 Route: l 23:40: IVPB, Levi 00 ONCE, Dosing Weight 100, kg, Start date: 03/21/16 17:40:00 [employer], Duration: 1 doses or times, Stop date: 03/21/16 17:40:00 [employer]ACH[employer], Surgical Prophylaxi s Only; For patients < 120 kg Ondansetron 2015-04 No Notes: Dat mark 2-06 (Same as: l 23:21: Zofran) Dennison MEDICATION WASTE Product Size: 4 mg Product Wasted: ___ mg Oxycodone 2015-04 No Notes: Memori a 2-06 (Same as: l 23:21: Roxicodone Levi ) Naloxone 2015-04 No Notes: Memoria 2-06 Same as l 23:21: Narcan Levi Flumazenil 2015-04 No Notes: Memor ia 2-06 (Same as: l 23:21: Romazicon) Dennison Hydromorpho 2015-04 No Notes: Dat mark ne 2-06 Same as l 23:21: Dilaudid Dennison 00 Labetalol 2015-04 No 10 mg, 2 Dat mark 2-06 mL, Route: l 23:21: IVP, Drug form: INJ, Q5Min, Dosing Weight 100, kg, PRN Elevated BP, Start date: 03/21/16 17:21:00 [employer], Duration: 5 doses or times, Stop date: Limited # of times Hydralazine 2015-04 No Notes: Dat mark 2-06 (Same as: l 23:21: Apresoline ) Push over 5 minutes sodium 2015-04 No 1,000 mL, Memori a chloride 2-06 Rate: 100 l 0.9% 1000 06:01: ml/hr, Flip n ml INJ 00 Infuse 1,000 mL over: 10 hr, Route: IV, Dosing Weight 100 kg, Total Volume: 1,000, Start date: 03/21/16 0:01:00 [employer], Duration: 30 day, Stop date: 04/20/16 0:00:00 [employer] Acetaminoph 2015-04 No Notes: Do M emoria en 325 MG / 2-06 not exceed l Hydrocodone 00:01: 4gm/day of Levi Bitartrate 00 acetaminop 10 MG Oral hen. Tablet (Same as: [[place] 10/325] 325/10) gabapentin 2015-04 No Notes: Memor ia 800 MG Oral 2-05 (Same as: l Tablet 23:00: Neurontin) Dulce Maria nn Haldol 2015-04 No Notes: Memoria 2-05 (Same as: l 20:34: Haldol) Levi Acetaminoph 2015-04 No Notes: Do M emoria en 325 MG / 2-05 not exceed l Hydrocodone 20:14: 4gm/day of Levi Bitartrate 00 acetaminop 10 MG Oral hen. Tablet (Same as: [[place] 10/325] 325/10) Docusate 2015-04 No Notes: Memoria 2-05 (Same as: l 15:00: Colace) Levi 00 (Do Not Crush) Inderal 2015-04 No Notes: Memoria 2-05 Give with l 06:45: food. Dennison 00 (Same as: Inderal) gabapentin 2015-04 No Notes: Memor ia 300 MG Oral 2-05 (Same as: l Capsule 06:00: Neurontin) Herm erin 00 Oxycodone 2015-04 No Notes: Memori a Hydrochlori 2-05 (Same as: l de 5 MG 06:00: Roxicodone Herm erin Oral Tablet 00 ) Oxycodone 2015-04 No Notes: Memori a Hydrochlori 2-05 (Same as: l de 5 MG 03:41: Roxicodone Herm erin Oral Tablet 00 ) Oxycodone 2015-04 No Notes: Memori a Hydrochlori 2-05 (Same as: l de 5 MG 03:39: Roxicodone Herm erin Oral Tablet 00 ) Acetaminoph 2015-04 No Notes: Do M emoria en 325 MG / 2-05 not exceed l Hydrocodone 00:00: 4gm/day of Denn[place] Bitartrate 00 acetaminop 10 MG Oral hen. Tablet (Same as: [[place] 10/325] 325/10) Miralax 2015-04 No Notes: Memoria 2-04 Dissolve l 23:00: in 8 oz of Denn[place] water or juice. (Same as: Miralax) Acetaminoph 2015-04 No Notes: Do M emoria en 325 MG / 2-04 not exceed l Hydrocodone 22:48: 4gm/day of Levi Bitartrate 00 acetaminop 10 MG Oral hen. Tablet (Same as: [[place] 10/325] 325/10) gabapentin 2015-04 No 60 Memoria 300 MG Oral 2-03 ml/min), l Capsule 22:00: Start Denn[place] date: 03/18/16 16:00:00 [employer], Duration: 30 day, Stop date: 04/17/16 8:00:00 [employer] gabapentin 2015-04 No Notes: Memor ia 300 MG Oral 2-03 (Same as: l Capsule 20:15: Neurontin) Herm erin Ondansetron 2015-04 No Notes: Dat mark 2-03 (Same as: l 15:21: Zofran) Dennison 00 MEDICATION WASTE Product Size: 4 mg Product Wasted: _0__ mg Naloxone 2015-04 No Notes: Memoria 2- Same as l 15:21: Narcan Flumazenil 2015-04 No Notes: Memor ia 2- (Same as: l 15:21: Romazicon) Oxycodone 2015-04 No Notes: Memori a 2- (Same as: l 15:21: Roxicodone ) Hydromorpho 2015-04 No Notes: Dat mark ne 2- Same as l 15:21: Dilaudid Labetalol 2015-04 No 10 mg, 2 Dat mark 2-03 mL, Route: l 15:21: IVP, Drug form: INJ, Q5Min, Dosing Weight 100, kg, PRN Elevated BP, Start date: 03/18/16 9:21:00 [employer], Duration: 5 doses or times, Stop date: Limited # of times Hydralazine 2015-04 No Notes: Dat mark 2- (Same as: l 15:21: Apresoline ) Push over 5 minutes ceFAZolin 2015-04 No 2 gm, Memoria (SCIP) 05-19 Route: l 13:58: IVPB, Drug form: INJ, ONCE, Dosing Weight 100, kg, Start date: 03/18/16 7:58:00 [employer], Stop date: 03/18/16 7:58:00 [employer]INE Plasma-Lyte 2015-04 No Notes: Dat mark A PH-7.4 05-19 WASTE: F/P l 1000 ml INJ 06:01: - Sink; E H ermann 1,000 mL 00 - Municipal Trash Bin Lovenox 2015-04 No Notes: Memoria 05-17 (Same as: l 12:00: Lovenox) Benzocaine 2015-04 No 1 spray, Mem oria 200 MG/ML 05-14 Route: l Mucosal 22:25: TOP, Q6H, Dulce Maria nn [place] 00 Drug form: [Hurricaine SPRY, PRN ] Mouth Pain, Start date: 03/14/16 16:25:00 [employer], Duration: 30 day, Stop date: 04/13/16 16:24:00 [employer] Benzocaine 2015-04 No Notes: Memor ia 200 MG/ML 05-14 (Same As: l Mucosal 18:30: Hurricaine Herm erin [place] 00 ) WASTE: [Hurricaine F/P - ] Black; E - Municipal Trash Bin FOR ORAL USE Ondansetron 2015-04 No 4 mg, Memor ia 05-14 Route: l 14:36: IVP, ONCE, Dennison Dosing Weight 100, kg, PRN Nausea & Vomiting, Start date: 03/14/16 8:36:00 [employer]INE Flumazenil 2015-04 No 0.2 mg, Dat mark 05-14 Route: l 14:36: IVP, PRN, Levi Dosing Weight 100, kg, PRN Benzodiaze pine Reversal, Initial dose, Start date: 03/14/16 8:36:00 [employer], Duration: 30 day, Stop date: 04/13/16 8:35:00 [employer]INE Naloxone 2015-04 No 0.4 mg, Memori a 05-14 Route: l 14:36: IVP, Levi 00 Q2MIN, Dosing Weight 100, kg, PRN Narcotic Reversal, Start date: 03/14/16 8:36:00 [employer], Duration: 8 doses or times, Stop date: Limited # of times Hydromorpho 2015-04 No 0.5 mg, Mem oria ne 05-14 Route: l 14:36: IVP, Dennison 00 Q5Min, Dosing Weight 100, kg, PRN Pain Score 7-10, Start date: 03/14/16 8:36:00 [employer], Duration: 4 doses or times, Stop date: Limited # of times Isolyte S 2015-04 No Notes: Memori a (PH 7.4) 05-14 (Same as: l 1000 mL 06:42: Isolyte S Dulce Maria nn 1,000 mL 00 PH 7.4) Electrolyte 2015-04 No 1,000 mL, M emoria Solution 05-14 Rate: 100 l 1000 mL 06:19: ml/hr, Dennison 00 Infuse over: 10 hr, Route: IV, Dosing Weight 100 kg, Total Volume: 1,000, Start date: 03/14/16 0:19:00 [employer], Duration: 30 day, Stop date: 04/13/16 0:18:00 [employer]INE Clonidine 2015-04 No Notes: Memori a Hydrochlori 05-12 (Same As: l de 0.1 MG 22:00: Catapres) Her benjamin Oral Tablet 00 Fentanyl 2015-04 No Notes: Memoria 05-12 (Same as: l 00:08: Sublimaze) Dennison Preservat stewart free. Ondansetron 2015-04 No 4 mg, Memor ia 05-12 Route: l 00:08: IVP, ONCE, Levi Dosing Weight 100, kg, PRN Nausea & Vomiting, Start date: 03/11/16 18:08:00 [employer]INE Flumazenil 2015-04 No 0.2 mg, Dat mark 05-12 Route: l 00:08: IVP, PRN, Dennison Dosing Weight 100, kg, PRN Benzodiaze pine Reversal, Initial dose, Start date: 03/11/16 18:08:00 [employer], Duration: 30 day, Stop date: 04/10/16 18:07:00 [employer] Naloxone 2015-04 No 0.4 mg, Memori a 05-12 Route: l 00:08: IVP, Levi 00 Q2MIN, Dosing Weight 100, kg, PRN Narcotic Reversal, Start date: 03/11/16 18:08:00 [employer], Duration: 8 doses or times, Stop date: Limited # of times Hydromorpho 2015-04 No 0.5 mg, Mem oria ne 05-12 Route: l 00:08: IVP, Dennison 00 Q5Min, Dosing Weight 100, kg, PRN Pain Score 7-10, Start date: 03/11/16 18:08:00 [employer]ACHINE, Duration: 4 doses or times, Stop date: Limited # of times Isolyte S 2015-04 No Notes: Memori a (PH 7.4) 05-11 (Same as: l 1000 mL 16:58: Isolyte S Dulce Maria nn 1,000 mL 00 PH 7.4) Ondansetron 2015-04 No Notes: Dat mark 05-08 (Same as: l 20:29: Zofran) Dennison 00 MEDICATION WASTE Product Size: 4 mg Product Wasted: ___ mg Naloxone 2015-04 No Notes: Memoria 05-08 Same as l 20:29: Narcan Levi Hydromorpho 2015-04 No Notes: Dat mark ne 05-08 Same as l 20:29: Dilaudid Flumazenil 2015-04 No Notes: Memor ia 05-08 (Same as: l 20:29: Romazicon) sugammadex 2015-04 No Notes: Memor ia 05-08 (Same as: l 20:00: Bridion) Isolyte S 2015-04 No Notes: Memori a (PH 7.4) 05-08 (Same as: l 1000 mL 00:09: Isolyte S Dulce Maria nn 1,000 mL 00 PH 7.4) Flomax 2015-04 No Notes: Memoria 05-07 (Same As: l 23:00: Flomax) "Do Not Crush" sugammadex 2015-04 No Notes: Memor ia 05-06 (Same as: l 20:40: Bridion) Ondansetron 2015-04 No 4 mg, Memor ia 05-06 Route: l 19:12: IVP, ONCE, Dosing Weight 100, kg, PRN Nausea & Vomiting, Start date: 03/06/16 13:12:00 [employer] Acetaminoph 2015-04 No 1,000 mg, M emoria en 05-06 Route: PO, l 19:12: Drug form: Denn[place] TAB, ONCE, Dosing Weight 100, kg, PRN Pain Score 1-3, Start date: 03/06/16 13:12:00 [employer], Duration: 1 doses or times, Stop date: Limited # of times Flumazenil 2015-04 No 0.2 mg, Dat mark 05-06 Route: l 19:12: IVP, PRN, Levi 00 Dosing Weight 100, kg, PRN Benzodiaze pine Reversal, Initial dose, Start date: 03/06/16 13:12:00 [employer], Duration: 30 day, Stop date: 04/05/16 13:11:00 [employer] Naloxone 2015-04 No 0.4 mg, Memori a 05-06 Route: l 19:12: IVP, Levi 00 Q2MIN, Dosing Weight 100, kg, PRN Narcotic Reversal, Start date: 03/06/16 13:12:00 [employer], Duration: 8 doses or times, Stop date: Limited # of times Ancef 2015-04 No 2 gm, Memoria 05-06 Route: l 18:12: IVPB, Levi 00 ONCE, Dosing Weight 100, kg, Start date: 03/06/16 12:12:00 [employer], Duration: 1 doses or times, Stop date: 03/06/16 12:12:00 [employer], Surgical Prophylaxi s Only; For patients < 120 kg Oxycodone 2015-04 No Notes: Memori a Hydrochlori -19 (Same as: l de 5 MG 14:59: Roxicodone Herm erin Oral Tablet ) Seroquel 2015-04 No Notes: Memoria -19 (Same as: l 04:48: SEROquel) Dennison 00 Metamucil 2015-04 No Notes: Memori a -18 (Same as: l 23:00: Metamucil) Levi Mix in 8 oz liquid with meal. Flumazenil 2015-04 No Notes: Memor ia 1-18 (Same as: l 14:42: Romazicon) Dennison Naloxone 2015-04 No Notes: Memoria 1-18 Same as l 14:42: Narcan Dennison 00 Ondansetron 2015-04 No Notes: Dat mark 1-18 (Same as: l 14:42: Zofran) Levi 00 MEDICATION WASTE Product Size: 4 mg Product Wasted: ___ mg Hydromorpho 2015-04 No Notes: Dat mark ne 1-18 Same as l 14:42: Dilaudid Dennison 00 Labetalol 2015-04 No 10 mg, 2 Dat mark 1-18 mL, Route: l 14:42: IVP, Drug Levi form: INJ, Q5Min, Dosing Weight 100, kg, PRN Elevated BP, Start date: 03/03/16 8:42:00 [employer]ACH[employer], Duration: 5 doses or times, Stop date: 03/04/16 0:00:00 [employer]INE Morphine 2015-04 No Notes: Memoria 1-18 (Same l 14:42: as:MORPhin Levi 00 e Sulfate) Hydralazine 2015-04 No Notes: Dat mark 1-18 (Same as: l 14:42: Apresoline Levi ) Push over 5 minutes Ancef 2015-04 No 2 gm, Memoria -18 Route: l 14:04: IVPB, Levi 00 ONCE, Dosing Weight 100, kg, Start date: 03/03/16 8:04:00 [employer], Duration: 1 doses or times, Stop date: 03/03/16 8:04:00 [employer], Surgical Prophylaxi s Only; For patients < 120 kg zinc oxide 2015-04 No Notes: Memor ia topical 40% 05-03 Same as: l ointment 01:01: Desitin Flip n 00 Zinc Oxide 2015-04 No 1 appl, Dat mark 0.2 MG/MG 05-03 Route: l Topical 00:16: TOP, PRN, Dulce Maria nn Ointment 00 Drug form: OINT, PRN Diaper Rash, Start date: 03/02/16 18:16:00 [employer], Duration: 30 day, Stop date: 04/01/16 18:15:00 [employer] Risperdal 2015-04 No Notes: Memori a -17 (Same as: l 03:00: Risperdal) Dennison Propofol 10 2015-04 No Notes: If M emoria MG/ML 05-01 Diprivan - l Injectable 17:54: change Dulce Maria nn Suspension 00 bottle & tubing every 12 hr Per state nursing law propofol can only be given by a nurse if patient is intubated or being intubated (unless the nurse is a EPIC ANESTHESIA ANALYST). Same as: Diprivan Haldol 2015-04 No Notes: Memoria 1-16 (Same as: l 17:49: Haldol) Dennison Benadryl 2015-04 No Notes: Memoria 1-16 (Same as: l 17:49: Benadryl) Levi Fentanyl 2015-04 No 50 Memoria 1-16 microgram, l 17:15: Route: IV, Dennison 00 ONCE, Dosing Weight 100, kg, Start date: 03/01/16 11:15:00 [employer]ACH[employer], Stop date: 03/01/16 11:15:00 [employer]INE Versed 2015-04 No 2 mg, Memoria -16 Route: l 17:15: IVP, ONCE, Dennison 00 Dosing Weight 100, kg, Start date: 03/01/16 11:15:00 [employer], Stop date: 03/01/16 11:15:00 [employer] Versed 2015-04 No Notes: Memoria 1-16 (Same as: l 16:41: Versed) Dennison MEDICATION WASTE Product Size: 2 mg Product Wasted: ___ mg Miralax 2015-04 No Notes: Memoria 1-16 Dissolve l 15:00: in 8 oz of Levi 00 water or juice. (Same as: Miralax) Docusate 2015-04 No Notes: Memoria 1-16 (Same as: l 15:00: Colace) Dennison 00 sennosides, 2015-04 No Notes: Dat mark JAIL 1-16 (Same as: l 15:00: Senokot) Dennison Versed 2015-04 No Notes: Memoria 1-16 (Same as: l 14:19: Versed) Dennison 00 MEDICATION WASTE Product Size: 2 mg Product Wasted: ___ mg Fentanyl 2015-04 No Notes: Memoria 1-16 (Same as: l 02:34: Sublimaze) Preservat stewart free. Clonidine 2015-04 No Notes: Memori a Hydrochlori 1-15 (Same As: l de 0.3 MG 22:00: Catapres) Her benjamin Oral Tablet 00 sugammadex 2015-04 No Notes: Memor ia 1-15 (Same as: l 20:27: Bridion) Levi Ancef 2015-04 No 2 gm, Memoria 1-15 Route: l 20:02: IVPB, Dennison 00 ONCE, Dosing Weight 100, kg, Start date: 02/29/16 14:02:00 [employer]ACH[employer], Duration: 1 doses or times, Stop date: 02/29/16 14:02:00 [employer]ACHINE, Surgical Prophylaxi s Only; For patients < 120 kg Dakins 2015-04 No Notes: Memoria Solution 1-15 (Dakin's l 15:00: (0.125%=1/ Dennison 00 4 strength) 473ml top SOLN) For external use only. Note: quarter strength = 0.125% sodium hypochlori te. PHOS-NaK 2015-04 No Notes: Memoria 1-13 (Same as: l 22:48: Phos-NaK) Levi 00 Each 1.5 gm pkt has 250mg phosphorou s. Mix w/2.5oz water and stir. Benadryl 2015-04 No Notes: Memoria -13 (Same as: l 05:08: Benadryl) Dennison 00 Mylanta Gas 2015-04 No Notes: Dat mark 13 (Same as: l 04:51: Mylicon) Dennison 00 Isolyte S 2015-04 No Notes: Memori a PH-7.4 04-28 (Same as: l (Bolus) IV 01:31: Isolyte S He rmann 00 PH 7.4) Flomax 2015-04 No Notes: Memoria -12 (Same As: l 23:00: Flomax) Dennison 00 "Do Not Crush" Propofol 10 2015-04 No Notes: If M emoria MG/ML 04-26 Diprivan - l Injectable 16:59: change Dulce Maria nn Suspension 00 bottle & tubing every 12 hr Per state nursing law propofol can only be given by a nurse if patient is intubated or being intubated (unless the nurse is a EPIC ANESTHESIA ANALYST). Same as: Diprivan Fentanyl 2015-04 No 1,000 Memoria 04-26 microgram, l 16:59: 20 mL, Dennison 00 Rate: Titrate, Start Dose: 50 microgram/ hr, Titration: Titrate by 25 micrograms /hour every 15 minutes, Goal(s): RASS 0, Max Dose: 300 mcg/hr, Route: IV, Dosing Weight 100 kg, Total Volume: 20, Start date: 02/25/16 10:59:00 [employer]ACHINE,... Nicotine 2015-04 No Notes: Memoria 04-26 (Same as: l 16:00: Habitrol) "Remove old patch before applicatio n of new patch" WASTE: F/P - P Waste Black; E - P Waste Black Propranolol 2015-04 No Notes: Dat mark -11 Give with l 16:00: food. Levi 00 (Same as: Inderal) Risperidone 2015-04 No Notes: Dat mark -11 (Same as: l 16:00: Risperdal) Levi 00 Haldol 2015-04 No 2 mg, Memoria 04-26 Route: IM, l 06:00: Q4H, Levi Dosing Weight 100, kg, Start date: 02/25/16 0:00:00 [employer], Duration: 30 day, Stop date: 03/25/16 20:00:00 [employer] Haldol 2015-04 No Notes: Memoria 1-11 (Same as: l 03:44: Haldol) Dennison 00 Haldol 2015-04 No 2 mg, Memoria 04-26 Route: PO, l 03:43: Drug form: Levi 00 TAB, TID, Dosing Weight 100, kg, PRN Anxiety, Start date: 02/24/16 21:43:00 [employer], Duration: 30 day, Stop date: 03/25/16 21:42:00 [employer] remove 2015-04 No Notes: Memoria patch -11 Remove l 03:00: patch 12 Levi 00 hours after applicatio n each day. Seroquel 2015-04 No 50 mg, Memoria 11 Route: PO, l 03:00: Drug form: Dennison 00 TAB, Bedtime, Dosing Weight 100, kg, Start date: 02/24/16 21:00:00 [employer], Duration: 30 day, Stop date: 03/24/16 21:00:00 [employer] Clonidine 2015-04 No Notes: Memori a Hydrochlori 1-10 (Same As: l de 0.3 MG 18:00: Catapres) Her benjamin Oral Tablet 00 Vancomycin 2015-04 No 2000 mg: Me moria 1-10 infuse l 16:30: over 2.5 Dennison 00 hours Propranolol 2015-04 No Notes: Dat mark 1-10 Give with l 15:00: food. Dennison 00 (Same as: Inderal) Lidocaine 2015-04 No Notes: Memori a Hydrochlori 1-10 Apply only l de 0.05 15:00: once for Flip n MG/MG 00 up to 12 Transdermal hours in a Patch 24-hour [Lidoderm] period (12 hours on and 12 hours off). (Same as: Lidoderm) "Remove old patch before applicatio n of new patch" potassium 2015-04 No 21 mmol, Dat mark phosphate 1-10 Route: l 14:18: IVPB, Dennison 00 ONCE, Dosing Weight 100, kg, Start date: 02/24/16 8:18:00 [employer]ACH[employer], Stop date: 02/24/16 8:18:00 [employer]ACHINE PHOS-NaK 2015-04 No Notes: Memoria 1-10 (Same as: l 14:00: Phos-NaK) Dennison 00 Each 1.5 gm pkt has 250mg phosphorou s. Mix w/2.5oz water and stir. potassium 2015-04 No Notes: Memori a phosphate + 1-10 (Same as: l sodium 07:57: K Dennison chloride Phosphate. 0.9% INJ ) 1 mMol 250 mL phoshate has 1.47 mEq potassium Infuse over 4 hours Clonidine 2015-04 No Notes: Memori a Hydrochlori -10 (Same As: l de 0.2 MG 06:00: Catapres) Her benjamin Oral Tablet Risperdal 2015-04 No Notes: Memori a 1-10 (Same as: l 04:32: Risperdal) Levi Seroquel 2015-04 No Notes: Memoria 1-10 (Same as: l 03:58: SEROquel) Levi 00 Docusate 2015-04 No Notes: Memoria 1-10 (Same as: l 03:00: Colace) Levi Risperdal 2015-04 No 0.5 mg, Memor ia 04-24 Route: PO, l 23:00: Drug form: Levi 00 TAB, BID, Dosing Weight 100, kg, Start date: 02/23/16 17:00:00 [employer], Duration: 30 day, Stop date: 03/24/16 9:00:00 [employer] Vancomycin 2015-04 No 2001 mg: Me moria 04-24 infuse l 21:30: over 2.5 Levi 00 hours Diazepam 2015-04 No Notes: Memoria 04-24 (Same as: l 20:11: Valium) Dennison 00 WASTE: F/P - Black; E - White/Blue Diazepam 2015-04 No 10 mg, Memoria 04-24 Route: l 20:10: IVP, Drug Dennison form: INJ, Q10Min, Dosing Weight 100, kg, PRN Anxiety, Start date: 02/23/16 14:10:00 [employer], Duration: 30 day, Stop date: 03/24/16 14:09:00 [employer] Oxycodone 2015-04 No 10 mg, Memori a Hydrochlori 04-24 Route: PO, l de 5 MG 18:00: Drug form: Herm erin Oral Tablet 00 TAB, Q6H, Dosing Weight 100, kg, Start date: 02/23/16 12:00:00 [employer], Duration: 30 day, Stop date: 03/24/16 6:00:00 [employer]INE Ceftazidime 2015-04 No Notes: Dat mrak 04-24 (Same as: l 16:00: Fortaz) Dennison MEDICATION WASTE Product Size: 1000 mg Product Wasted: _0_ mg Vancomycin 2015-04 No 1.5 gm, Dat mark 04-24 Route: l 16:00: IVPB, Drug Dennison form: INJ, ABXQ6H, Dosing Weight 100, kg, Start date: 02/23/16 10:00:00 [employer], Duration: 30 day, Stop date: 03/24/16 4:00:00 [employer]INE Oxycodone 2015-04 No Notes: Memori a Hydrochlori 04-24 (Same as: l de 5 MG 15:15: Roxicodone Herm erin Oral Tablet ) Vancomycin 2015-04 No 2000 mg: Me moria 04-24 infuse l 15:09: over 2.5 Dennison 00 hours Risperdal 2015-04 No Notes: Memori a 04-24 (Same as: l 15:09: Risperdal) Dennison 00 multivitami 2015-04 No Notes: Dat mark n 04-24 (Same l 15:00: as:Thera) Levi WASTE: F/P - Black; E - Municipal Trash Bin Take with food. Lorazepam 2015-04 No Notes: Memori a 04-24 (Same as: l 15:00: Ativan) Levi 00 midazolam 2015-04 No Notes: Memori a 50mg/ NS 04-24 (Same as: l 50ml drip 06:33: Versed) Dulce Maria nn (premixed) 00 50 mg Valium 2015-04 No Notes: Memoria 04-24 (Same as: l 06:00: Valium) Levi 00 Isolyte S 2015-04 No Notes: Memori a (PH 7.4) 04-24 (Same as: l 1000 mL 02:47: Isolyte S Dulce Maria nn 1,000 mL 00 PH 7.4) Fentanyl 2015-04 No 1,000 Memoria 1-08 microgram, l 23:02: 20 mL, Levi 00 Rate: Titrate, Start Dose: 50 microgram/ hr, Titration: Titrate by 25 micrograms /hour every 15 minutes, Goal(s): RASS 0, Max Dose: 300 mcg/hr, Route: IV, Dosing Weight 100 kg, Total Volume: 20, Start date: 02/22/16 17:02:00 [employer] MACHINE,... Propofol 10 2015-04 No Notes: If M emoria MG/ML 04-23 Diprivan - l Injectable 23:02: change Dulce Maria nn Suspension 00 bottle & tubing every 12 hr Per state nursing law propofol can only be given by a nurse if patient is intubated or being intubated (unless the nurse is a EPIC ANESTHESIA ANALYST). Same as: Diprivan Dextrose 2015-04 No 12.5 gm, Memor ia 50% Syringe 04-23 25 mL, l 23:02: Route: Dennison 00 IVP, Drug Form: INJ, Dosing Weight 100, kg, PRN, PRN Abnormal Lab Result, Start date: 02/22/16 17:02:00 [employer]ACH[employer], Duration: 30 day, Stop date: 03/23/16 17:01:00 [employer]ACHINE, For FSBG 40 mg/dL - 60 mg/dL Insulin 2015-04 No 60 Memoria regular 08 units) l 23:02: WASTE: F/P Levi - Black; E - Municipal Trash Bin Stable for 28 days at room temperatur e Expires in days from ____Date Lorazepam 2015-04 No Notes: Memori a 04-23 (Same as: l 22:00: Ativan) Dennison [facility] 2015-04 No 1 gm, Memoria 08 Route: l 19:47: IVPB, Dennison 00 ONCE, Dosing Weight 100, kg, Start date: 02/22/16 13:47:00 [employer]ACH[employer], Duration: 1 doses or times, Stop date: 02/22/16 13:47:00 [employer]ACHINE, Surgical Prophylaxi s Only; For patients < 120 kg Ancef 2015-04 No 2 gm, Memoria 08 Route: l 16:47: IVPB, Dennison 00 ONCE, Dosing Weight 100, kg, Start date: 02/22/16 10:47:00 [employer] MACHINE, Duration: 1 doses or times, Stop date: 02/22/16 10:47:00 [employer] MACHINE, Surgical Prophylaxi s Only; For patients < 120 kg Miralax 2015-04 No Notes: Memoria 1-08 Dissolve l 15:00: in 8 oz of Levi 00 water or juice. (Same as: Miralax) Bisacodyl 2015-04 No Notes: Memori a 1-08 (Same As: l 14:18: Dulcolax, Levi 00 Bisco-Lax) Clonidine 2015-04 No Notes: Memori a Hydrochlori -08 (Same As: l de 0.2 MG 14:15: Catapres) Her benjamin Oral Tablet 00 Isolyte S 2015-04 No Notes: Memori a (PH 7.4) -07 (Same as: l 1000 mL 23:20: Isolyte S Dulce Maria nn 1,000 mL 00 PH 7.4) iodixanol 2015-04 No Notes: Memori a 1-07 (Same as: l 22:55: Visipaque) Levi . WASTE: F/P - Black; E - Municipal Trash Bin Iohexol 2015-04 No Notes: Memoria - (Same l 21:18: as:Omnipaq Dennison 00 ue 350). WASTE: F/P - Black; E - Municipal Trash Bin Lasix 2015-04 No Notes: Memoria 1-07 (Same as: l 19:26: Lasix) Levi 00 MEDICATION WASTE Product Size: 40 mg Product Wasted: _20__ mg Lorazepam 2015-04 No Notes: Memori a 1-07 (Same as: l 18:00: Ativan) Levi multivitami 2015-04 No Notes: Dat mark n -07 (Same l 15:00: as:Thera) WASTE: F/P - Black; E - Municipal Trash Bin Take with food. Lorazepam 2015-04 No Notes: Memori a 1-06 (Same as: l 22:00: Ativan) Dennison cloNIDine 2015-04 No Notes: Memori a 0.3 mg oral -06 (Same As: l tablet 15:00: Catapres) Flip n 00 Hydralazine 2015-04 No Notes: Dat mark 1-06 (Same as: l 09:27: Apresoline Levi 00 ) Push over 5 minutes Isolyte S 2015-04 No Notes: Memori a (PH 7.4) 1-05 (Same as: l 1000 mL 21:28: Isolyte S Dulce Maria nn 1,000 mL 00 PH 7.4) Sodium 2015-04 No 1,000 mL, Memori a Chloride 04-20 Rate: 100 l 0.154 18:51: ml/hr, Levi MEQ/ML 00 Infuse Injectable over: 10.1 Solution hr, Route: IV, Dosing Weight 100 kg, Total Volume: 1,011.2, Start date: 02/19/16 13:51:00 CDT, Duration: 3 day, Stop date: 02/22/16 13:50:00 [employer]ACHINE Lorazepam 2015-04 No Notes: Memori a 1-05 (Same as: l 17:00: Ativan) multivitami 2015-04 No Notes: Dat mark n -05 (Same l 15:30: as:Thera) WASTE: F/P - Black; E - Municipal Trash Bin Take with food. Thiamine 2015-04 No Notes: Memoria 1-05 (Same As: l 15:30: Vitamin Dennison 00 B1) Folic Acid 2015-04 No Notes: Memor ia 1-05 (Same as: l 15:30: Folvite) Lorazepam 2015-04 No Notes: Memori a 1-05 (Same as: l 14:17: Ativan) Valium 2015-04 No Notes: Memoria -04 (Same as: l 21:00: Valium) potassium 2015-04 No Notes: Memori a phosphate-s 04-19 (Same as: l odium 16:10: Phos-NaK) phosphate Each 1.5 gm pkt has 250mg phosphorou s. Mix w/2.5oz water and stir. potassium 2015-04 No 1.45 gm, Dat mark phosphate 04-19 Route: PO, l 14:00: BID, Levi 00 Dosing Weight 100, kg, Start date: 02/18/16 9:00:00 CDT, Duration: 30 day, Stop date: 03/18/16 17:00:00 [employer]ACHINE potassium 2015-04 No Notes: Memori a phosphate-s -03 (Same as: l odium 16:44: Phos-NaK) Levi phosphate 00 Each 1.5 gm pkt has 250mg phosphorou s. Mix w/2.5oz water and stir. Calcium 2015-04 No Notes: Memoria Carbonate 04-18 (Same As: l 16:18: Tums) Calcium Carbonate 500 mg = 200 mg elemental calcium Dose = mg calcium carbonate ( mg elemental calcium) Ipratropium 2015-04 No Notes: SEE Memoria [place] 0.2 04-18 RT l MG/ML 14:48: DOCUMENTAT Flip n Inhalant 00 ION (Same Solution as:Atroven t) Ativan 2015-04 No Notes: Memoria 04-18 (Same as: l 14:44: Ativan) Dennison sennosides, 2015-04 No Notes: Dat mark JAIL 04-18 (Same as: l 02:00: Senokot) Miralax 2015-04 No Notes: Memoria 04-17 Dissolve l 22:00: in 8 oz of Levi water or juice. (Same as: Miralax) Valium 2015-04 No Notes: Memoria 04-17 (Same as: l 21:00: Valium) Dennison Clonidine 2015-04 No Notes: Memori a 04-17 (Same As: l 21:00: Catapres) Dennison potassium 2015-04 No Notes: Memori a phosphate-s 04-17 (Same as: l odium 16:39: Phos-NaK) Dennison phosphate 00 Each 1.5 250 mg-280 gm pkt has mg-160 mg 250mg oral powder phosphorou for s. Mix reconstitut w/2.5oz ion water and stir. Valium 2015-04 No 30 mg, Memoria 04-17 Route: PO, l 16:21: Drug form: Dennison 00 TAB, Q8H, Dosing Weight 100, kg, Priority: NOW, Start date: 02/16/16 11:21:00 CDT, Stop date: 03/17/16 8:00:00 [employer]ACHINE Bisacodyl 2015-04 No Notes: Memori a 04-17 (Same As: l 12:46: Dulcolax, Dennison Bisco-Lax) Lovenox 2015-04 No Notes: Memoria 04-16 (Same as: l 21:00: Lovenox) Dennison 00 tamsulosin 2015-04 No Notes: Memor ia 04-16 (Same As: l 14:30: Flomax) "Do Not Crush" gabapentin 2015-04 No Notes: Memor ia 04-16 (Same as: l 14:30: Neurontin) Dennison 00 Nicotine 2015-04 No Notes: Memoria 04-16 (Same as: l 14:00: Habitrol) "Remove old patch before applicatio n of new patch" WASTE: F/P - P Waste Black; E - P Waste Black Clonidine 2015-04 No Notes: Memori a 04-16 (Same As: l 14:00: Catapres) Dennison remove 2015-04 No Notes: Memoria patch 04-16 Remove old l 14:00: patch Dennison 00 before applicatio n of new patch. WASTE: F/P - P Waste Black; E - P Waste Black PHOS-NaK 2015-04 No Notes: Memoria 04-16 (Same as: l 12:30: Phos-NaK) Each 1.5 gm pkt has 250mg phosphorou s. Mix w/2.5oz water and stir. Miralax 2015-04 No Notes: Memoria 04-16 Dissolve l 11:00: in 8 oz of water or juice. (Same as: Miralax) sodium 2015-04 No 30 mmol, Memoria phosphate + 04-16 10 mL, l sodium 09:57: Route: Dennison chloride IVPB, 0.9% INJ ONCE, 250 mL Dosing Weight 100, kg, Start date: 02/15/16 4:57:00 CDT, Stop date: 02/15/16 4:57:00 CDT Insulin 2015-04 No 60 Memoria regular 04-16 units) l 07:40: WASTE: F/P Dennison 00 - Black; E - Municipal Trash Bin Stable for 28 days at room temperatur e Expires in days from ____Date Dextrose 2015-04 No 12.5 gm, Memor ia 50% Syringe 04-16 25 mL, l 07:40: Route: Levi 00 IVP, Drug Form: INJ, Dosing Weight 100, kg, PRN, PRN Abnormal Lab Result, Start date: 02/15/16 2:40:00 CDT, Duration: 30 day, Stop date: 03/16/16 1:39:00 [employer] MACHINE, For FSBG 40 mg/dL - 60 mg/dL Risperidone 2015-04 No Notes: Dat mark 04-16 (Same as: l 05:01: Risperdal) Ativan 2015-04 No Notes: Memoria 04-16 (Same as: l 04:50: Ativan) Levi Haldol 2015-04 No Notes: Memoria 04-16 (Same as: l 00:15: Haldol) Dennison 00 Haldol 2015-04 No Notes: Memoria 04-16 (Same as: l 00:14: Haldol) Dennison Ativan 2015-04 No Notes: Memoria 04-16 (Same as: l 00:02: Ativan) Levi 00 Valium 2015-04 No Notes: Memoria 04-16 (Same as: l 00:01: Valium) Levi Valium 2015-04 No Notes: Memoria 0-31 (Same as: l 23:43: Valium) Dennison 00 WASTE: F/P - Black; E - White/Blue Valium 2015-04 No Notes: Memoria 0-31 (Same as: l 23:00: Valium) Levi 00 Isolyte S 2015-04 No Notes: Memori a PH-7.4 0-31 (Same as: l (Bolus) IV 22:50: Isolyte S He rmann 00 PH7.4) Valium 2015-04 No Notes: Memoria 0-31 (Same as: l 22:30: Valium) Dennison 00 WASTE: F/P - Black; E - White/Blue Valium 2015-04 No Notes: Memoria 0-31 (Same as: l 22:29: Valium) Dennison 00 WASTE: F/P - Black; E - White/Blue Zofran 2015-04 No Notes: Memoria 0-31 (Same as: l 21:46: Zofran) Dennison 00 MEDICATION WASTE Product Size: 4 mg Product Wasted: ___ mg Ancef 2015-04 No 1 gm, Memoria 0-31 Route: l 16:42: IVPB, Dennison 00 ONCE, Dosing Weight 100, kg, Start date: 02/14/16 11:42:00 CDT, Duration: 1 doses or times, Stop date: 02/14/16 11:42:00 CDT, Surgical Prophylaxi s Only; For patients < 120 kg Ondansetron 2015-04 No Notes: Dat mark 0-31 (Same as: l 15:00: Zofran) Dennison MEDICATION WASTE Product Size: 4 mg Product Wasted: ___ mg Hydromorpho 2015-04 No Notes: Dat mark ne 0-31 Same as l 15:00: Dilaudid Dennison 00 Oxycodone 2015-04 No Notes: Memori a 0-31 (Same as: l 15:00: Roxicodone Dennison 00 ) Calcium 2015-04 No 1,000 mL, Memor ia Chloride 0-31 Rate: 125 l 0.0014 15:00: ml/hr, Dennison MEQ/ML / 00 Infuse Potassium over: 8 Chloride hr, Route: 0.004 IV, Dosing MEQ/ML / Weight 100 Sodium kg, Total Chloride Volume: 0.103 1,000, MEQ/ML / Start Sodium date: Lactate 02/14/16 0.028 10:00:00 MEQ/ML CDT, Injectable Duration: Solution 30 day, Stop date: 03/15/16 9:59:00 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 Mix w/2.5oz water and stir. Ancef 2015-04 No 2 gm, Memoria 0-31 Route: l 12:43: IVPB, Levi 00 ONCE, Dosing Weight 100, kg, Start date: 02/14/16 7:43:00 CDT, Duration: 1 doses or times, Stop date: 02/14/16 7:43:00 CDT, Surgical Prophylaxi s Only; For patients < 120 kg Bupivacaine 2015-04 No Notes: Dat mark Hydrochlori 0-31 (bupivacai l de 2.5 12:25: ne-epi Dennison MG/ML / 00 0.25%-1:20 Epinephrine 0,000 30 0.005 MG/ML ml VL) Injectable Not for Solution use in [Marcaine continuous with infusion. Epinephrine (Same As: 0.25/1:2000 Marcaine 00] w/Epi) Exparel 2015-04 No Notes: Memoria 0-31 (Same as: l 12:25: Exparel) NOT FOR IV use Postoperat stewart analgesia: Infiltrati on (local): Dose is based on surgical site and volume required to cover the area (in general, the maximum total dose is 266 mg). Bunionecto my: 7 mL into the tissues surroundin g the osteotomy and 1 mL into the subcutaneo us tissue of the surgical site (total dose = 8 mL [106 mg]) Hemorrhoid ectomy: 30 mL (20 mL vial diluted with 10 mL NS) divided and administer ed as 6 injections of 5 mL each (total dose = 30 mL [266 mg]) Valium 2015-04 No Notes: Memoria 0-31 (Same as: l 12:17: Valium) WASTE: F/P - Black; E - White/Blue Ondansetron 2015-04 No Notes: Dat mark 0-31 (Same as: l 11:40: Zofran) MEDICATION WASTE Product Size: 4 mg Product Wasted: ___ mg Naloxone 2015-04 No Notes: Memoria 0-31 Same as l 11:40: Narcan Flumazenil 2015-04 No Notes: Memor ia 0-31 (Same as: l 11:40: Romazicon) Hydromorpho 2015-04 No Notes: Dat mark ne 0-31 Same as l 11:40: Dilaudid Labetalol 2015-04 No 10 mg, 2 Dat mark 0-31 mL, Route: l 11:40: IVP, Drug form: INJ, Q5Min, Dosing Weight 100, kg, PRN Elevated BP, Start date: 02/14/16 6:40:00 CDT, Duration: 5 doses or times, Stop date: 02/15/16 0:00:00 CDT Hydralazine 2015-04 No Notes: Dat mark 0-31 (Same as: l 11:40: Apresoline Dennison 00 ) Push over 5 minutes Oxycodone 2015-04 No Notes: Memori a 0-31 (Same as: l 11:40: Roxicodone Levi 00 ) Magnesium 2015-04 No Notes: Memori a Oxide 0-31 (Same as: l 11:22: Mag-Ox Dennison 00 400) Magnesium oxide 510wh=061s g elemental magnesium Dose=____m g magnesium oxide (___mg elemental magnesium) Tums 2015-04 No Notes: Memoria 0-31 (Same As: l 09:18: Tums) Levi Calcium Carbonate 500 mg = 200 mg elemental calcium Dose = mg calcium carbonate ( mg elemental calcium) remove 2015-04 No 1 patch, Memoria patch 0-31 Route: l 02:00: TOP, Dennison 00 Bedtime, Drug form: ERFILM, Start date: 02/13/16 21:00:00 CDT, Stop date: 02/15/16 0:01:00 CDT heparin 2015-04 No Notes: Memoria 0-30 porcine l 23:00: heparin Dennison Dilaudid 2015-04 No Notes: Memoria 0-30 Same as l 21:26: Dilaudid Levi 00 Oxycodone 2015-04 No Notes: Memori a Hydrochlori 0-30 (Same as: l de 5 MG 21:26: Roxicodone Herm erin Oral Tablet ) influenza 2015-04 No Notes: Memori a virus 0-30 (Same as: l vaccine, 20:00: Fluzone Flip n inactivated 00 Quadrivale nt, Fluarix Quadrivale nt) For 3 years of age and older (0.5 mL IM) Shake well before use Valium 2015-04 No Notes: Memoria 0-30 (Same as: l 18:00: Valium) [place]enn[place] 00 influenza 2015-04 No Notes: Memori a virus 0-30 (Same as: l vaccine, 15:38: Fluzone Flip n inactivated 00 Quadrivale nt, Fluarix Quadrivale nt) For 3 years of age and older (0.5 mL IM) Shake well before use Naloxone 2015-04 No Notes: Memoria 0-30 Same as l 15:06: Narcan Levi 00 Flumazenil 2015-04 No Notes: Memor ia 0-30 (Same as: l 15:06: Romazicon) Levi 00 Hydromorpho 2015-04 No Notes: Dat mark ne 0-30 Same as l 15:06: Dilaudid Ondansetron 2015-04 No Notes: Dat mark 0-30 (Same as: l 15:06: Zofran) MEDICATION WASTE Product Size: 4 mg Product Wasted: _0_ mg esmolol 2015-04 No Notes: Memoria 0-30 (Same as: l 15:06: Brevibloc) Hydralazine 2015-04 No Notes: Dat mark 0-30 (Same as: l 15:06: Apresoline [place]enn[place] 00 ) Push over 5 minutes Metoprolol 2015-04 No Notes: Memor ia 0-30 (Same as: l 15:06: Lopressor) Push over 2 minutes Labetalol 2015-04 No 10 mg, 2 Dat mark 0-30 mL, Route: l 15:06: IVP, Drug form: INJ, Q5Min, Dosing Weight 100, kg, PRN Elevated BP, Start date: 02/13/16 10:06:00 CDT, Duration: 5 doses or times, Stop date: Limited # of times ANES 2015-04 No Notes: Memoria Enalaprilat 0-30 (Same as: l 15:06: Vasotec-IV ) Pneumovax 2015-04 No Notes: Memori a 23 0-30 (Same as: l 15:00: Pneumovax Levi 23) Refrigerat e Ativan 2015-04 No Notes: Memoria 0-30 (Same as: l 14:58: Ativan) Levi 00 Isolyte S 2015-04 No Notes: Memori a (PH 7.4) 0-30 (Same as: l 1000 mL 14:05: Isolyte S Dulce Maria nn 1,000 mL 00 PH 7.4) influenza 2015-04 No Notes: Memori a virus 0-30 (Same as: l vaccine, 14:00: Fluzone Flip n inactivated 00 Quadrivale nt, Fluarix Quadrivale nt) For 3 years of age and older (0.5 mL IM) Shake well before use Lidocaine 2015-04 No 1 patch, Dat mark 0.05 MG/MG 0-30 Route: l Transdermal 14:00: TOP, Flip n Patch 00 Daily, Drug form: FILM, apply to L chest wall at site of maximal tenderness , Priority: Stat, Start date: 02/13/16 9:00:00 CDT, Duration: 30 day, Stop date: 03/13/16 9:00:00 [employer] Nicotine 2015-04 No Notes: Memoria 0-30 (Same as: l 14:00: Habitrol) "Remove old patch before applicatio n of new patch" WASTE: F/P - P Waste Black; E - P Waste Black pneumococca 2015-04 No Notes: Dat mark l capsular 0-30 (Same as: l polysacchar 14:00: Pneumovax H ermann mayra type 1 00 23) vaccine / Refrigerat pneumococca e l capsular polysacchar mayra type 10A vaccine / pneumococca l capsular polysacchar mayra type 11A vaccine / pneumococca l capsular polysacchar mayra type 12F vaccine / pneumococca l capsular polysacchar Calcium 2015-04 No Notes: [facility] Chloride 0-30 WASTE: F/P l 07:32: - Sink; E [place] 00 - Municipal Trash Bin Lisinopril 2015-04 No Notes: Memor ia 0-30 (Same as: l 02:43: Prinivil, Zestril) Zofran 2015-04 No Notes: Memoria 0-30 (Same as: l 02:37: Zofran) MEDICATION WASTE Product Size: 4 mg Product Wasted: ___ mg Dilaudid 2015-04 No Notes: Memoria 0-30 (Same as: l 02:32: Dilaudid) Lovenox 2015-04 No Notes: Memoria 0-30 (Same as: l 02:00: Lovenox) Zofran 2015-04 No Notes: Memoria 0-30 (Same as: l 00:15: Zofran) MEDICATION WASTE Product Size: 4 mg Product Wasted: ___ mg Dilaudid 2015-04 No Notes: Memoria 0-30 Same as l 00:14: Dilaudid Levi 00 Fentanyl 2015-04 No 50 Memoria 0-30 microgram, l 00:14: Route: IV, ONCE, Dosing Weight 100, kg, Start date: 02/12/16 19:14:00 CDT, Stop date: 02/12/16 19:14:00 CDT Fentanyl 2015-04 No 100 Memoria 0-30 microgram, l 00:13: Route: IV, ONCE, Dosing Weight 100, kg, Start date: 02/12/16 19:13:00 CDT, Stop date: 02/12/16 19:13:00 CDT Ancef 2015-04 No 1 gm, Memoria 0-30 Route: IV, l 00:13: ONCE, Dosing Weight 100, kg, Start date: 02/12/16 19:13:00 CDT, Stop date: 02/12/16 19:13:00 CDT Lisinopril 2015-04 No 10 mg, PO, M emoria 0-29 Daily, 0 l 22:42: Refill(s) Labetalol 2015-04 No 160; hold Me moria 0-29 for HR < l 22:33: 70, Start date: 02/12/16 17:33:00 CDT, Stop date: 03/13/16 17:32:00 [employer] Zofran 2015-04 No Notes: Memoria 0-29 (Same as: l 22:13: Zofran) MEDICATION WASTE Product Size: 4 mg Product Wasted: ___ mg multivitami 2015-04 No Notes: Dat mark n 0-29 (Same l 22:13: as:Thera) WASTE: F/P - Black; E - Municipal Trash Bin Take with food. Thiamine 2015-04 No Notes: Memoria 0-29 (Same As: l 22:13: Vitamin B1) Folic Acid 2015-04 No Notes: Memor ia 0-29 (Same as: l 22:13: Folvite) Valium 2015-04 No Notes: Memoria 0-29 (Same as: l 22:12: Valium) WASTE: F/P - Black; E - White/Blue Isolyte S 2015-04 No Notes: Memori a PH-7.4 0-29 (Same as: l (Bolus) IV 22:05: Isolyte S He rmann PH 7.4) Docusate 2015-04 No Notes: [facility]oria Sodium 100 0-29 (Same as: l MG Oral 22:00: Colace) Levi Capsule 00 (Do Not Crush) Dilaudid 2015-04 No 1 mg, Memoria 0-29 Route: l 21:15: IVP, ONCE, Dosing Weight 100, kg, Priority: STAT, Start date: 02/12/16 16:15:00 CDT, Stop date: 02/12/16 16:15:00 CDT Epinephrine 2015-04 No Notes: Dat mark 0.01 MG/ML 0 (Same as: l / Lidocaine 20:42: Xylocaine H ermann Hydrochlori 00 w/Epinephr de 10 MG/ML ine) Injectable Solution Zofran 2015-04 No 4 mg, Memoria 0-29 Route: l 19:46: IVP, Drug form: INJ, ONCE, Dosing Weight 100, kg, Priority: STAT, Start date: 02/12/16 14:46:00 CDT, Stop date: 02/12/16 14:46:00 CDT Dilaudid 2015-04 No 0.5 mg, Memori a 0-29 Route: l 19:45: IVP, ONCE, Dosing Weight 100, kg, Priority: STAT, Start date: 02/12/16 14:45:00 CDT, Stop date: 02/12/16 14:45:00 CDT Isolyte S 2015-04 No Notes: Memori a PH-7.4 0-29 (Same as: l (Bolus) IV 17:41: Isolyte S He rmann 00 PH 7.4) Isolyte S 2015-04 No Notes: Memori a (PH 7.4) 0-29 (Same as: l 1000 mL 17:38: Isolyte S Dulce Maria nn 1,000 mL 00 PH 7.4) tramadol 2015-04 No Notes: Not Mem oria hydrochlori 0-29 to exceed l de 50 MG 17:38: 400mg/day. Her benjamin Oral Tablet 00 (Same As: Ultram) Oxycodone 2015-04 No Notes: Memori a Hydrochlori 0-29 (Same as: l de 5 MG 17:37: Roxicodone Herm erin Oral Tablet 00 ) Lyrica 2015-04 No Notes: Memoria 0-29 Same as l 17:37: Lyrica Denn[place] 00 Tylenol 2015-04 No Notes: Max Dat mark 0-29 acetaminop l 17:36: hen 4000 Dennison 00 mg/day (4 gm/day). (Same as: Tylenol Extra Strength) iodixanol 2015-04 No Notes: Memori a 0-29 (Same as: l 16:39: Visipaque) Levi 00 . WASTE: F/P - Black; E - Municipal Trash Bin Saline 2015-04 No Notes: Memoria Flush 0.9% 0-29 (Same as: l 16:24: BD Denn[place] 00 Posiflush) Vital Signs Vital Name Observation Time Observation Value Comments Source Heart Rate 2016-05-15 14:00:00 [facility] Temperature Oral (F) 2016-05-15 14:00:00 97.8 F [facility] [place] Systolic (mm Hg) 2016-05-15 14:00:00 Dat rial Levi Diastolic (mm Hg) 2016-05-15 14:00:00 Mem orial [place] Respitory Rate 2016-05-15 14:00:00 Memori al [place] Respitory Rate 2016-05-15 02:00:00 Memori al [place] Systolic (mm Hg) 2016-05-15 02:00:00 Dat rial Levi Diastolic (mm Hg) 2016-05-15 02:00:00 Mem orial Levi Temperature Oral (F) 2016-05-15 02:00:00 98.6 F [facility] Heart Rate 2016-05-15 02:00:00 [facility] [place] Temperature Oral (F) 2016-05-14 22:00:00 98.0 F [facility] Systolic (mm Hg) 2016-05-14 22:00:00 Dat rial Dennison Diastolic (mm Hg) 2016-05-14 22:00:00 Mem orial [place] Respitory Rate 2016-05-14 22:00:00 Memori al [place] Heart Rate 2016-05-14 22:00:00 [facility] Weight 2016-03-31 18:23:00 [facility] [place] Height 2016-03-31 18:23:00 187.96 cm [facility] BMI Calculated 2016-03-31 18:23:00 Memori al Levi Heart Rate 2016-03-31 14:30:00 [facility] Temperature Oral (F) 2016-03-31 14:30:00 97.6 F [facility] [place] Systolic (mm Hg) 2016-03-31 14:30:00 Dat rial Dennison Diastolic (mm Hg) 2016-03-31 14:30:00 Mem orial Levi Temperature Oral (F) 2016-03-31 11:53:00 98.1 F [facility] Systolic (mm Hg) 2016-03-31 11:53:00 Dat rial Denn[place] Diastolic (mm Hg) 2016-03-31 11:53:00 Mem orial [place] Heart Rate 2016-03-31 11:53:00 [facility] Respitory Rate 2016-03-31 05:54:00 Memori al Levi Heart Rate 2016-03-31 05:54:00 [facility] [place] Systolic (mm Hg) 2016-03-31 05:54:00 Dat rial Levi Diastolic (mm Hg) 2016-03-31 05:54:00 Mem orial Levi Respitory Rate 2016-03-31 01:15:00 Memori al [place] Temperature Oral (F) 2016-03-31 01:15:00 98.2 F [facility] Respitory Rate 2016-03-30 10:15:00 [facility] al [place] Height 2016-03-02 14:27:00 187.96 cm [facility] Height 2016-03-02 09:46:00 187.96 cm [facility] Height 2016-03-02 05:11:00 187.96 cm [facility] Weight 2016-02-12 22:11:00 [facility] BMI Calculated 2016-02-12 22:11:00 [facility] al [place] Weight 2016-02-12 16:24:00 [facility] BMI Calculated 2016-02-12 16:24:00 [facility]ori al [place] Procedures This patient has no known procedures. Encounters Start End Encounter Admission Attending Care Care Encounter Source Date/Time Date/Time Type Type Clinicians Facility Department ID 2019-10-07 2019-10-07 Telephone DARIEN Lee [id number] 00:00:00 00:00:00 Kye Muñoz [id number] [place] [id number] Professio [phone] nal 044 [facility] 2019-10-07 2019-10-07 Orders Doctor JOSÉ MIGUEL [id number] 00:00:00 00:00:00 Only Unassigned, OLGA [id number] [place] [facility] [id number] 2019-10-06 2019-10-06 Telephone Rosa [facility] [id number] 00:00:00 00:00:00 Kye Muñoz [id number] [place] [id number] Professio [phone] [facility] 044 [facility] 2016-03-31 2016-05-15 Outpatient [facility] [id number] 11:50:00 18:00:00 Jes Collins 2016-02-12 2016-03-31 Outpatient Keyur Pickett [facility] [id number] 11:25:00 11:00:00 Maurice Juarez Results Test Description Test Time Test Comments Results Result Comments Source CARDIAC ENZYMES 2016-05-12 41 [facility] 09:23:00 CARDIAC ENZYMES 2016-05-12 <0.02 [facility] 09:23:00 CARDIAC ENZYMES 2016-05-11 <0.02 [facility] 23:11:00 CARDIAC ENZYMES 2016-05-11 38 [facility] 23:11:00 ELECTROLYTES 2016-05-05 13.2 [facility] Her benjamin 10:39:00 ELECTROLYTES 2016-05-05 101 [facility] benjamin 10:39:00 ELECTROLYTES 2016-05-05 9.3 [facility] benjamin 10:39:00 ELECTROLYTES 2016-05-05 27 [facility] benjamin 10:39:00 ELECTROLYTES 2016-05-05 101 [facility] benjamin 10:39:00 ELECTROLYTES 2016-05-05 4.2 [facility] benjamin 10:39:00 ELECTROLYTES 2016-05-05 137 [facility] benjamin 10:39:00 ELECTROLYTES 2016-05-05 0.80 [facility] benjamin 10:39:00 ELECTROLYTES 2016-05-05 11 [facility] benjamin 10:39:00 ELECTROLYTES 2016-05-05 91 [facility] benjamin 10:39:00 HEMATOLOGY 2016-05-05 10.0 [facility] Dulce Maria nn 10:39:00 HEMATOLOGY 2016-05-05 10:39:00 Test Item Value Reference Range Interpretation Comme nts MCH (test code = MCH) 28.7 pg 27.0-31.0 [facility] TvkptgoFZVBZIOXQS4213-24-14 10:39:0033.1[facility] HermannHEMATOLOGY 2016-05-05 10:39:0013.5[facility] CddrwfnANKOHBIZVS8804-33-37 10:39:18349Hbpymmvc PtnvteqRNLIHTVJAZ1374-07-03 10:39:0013.4[facility] SrrmgfzPNFRMKNGTN5681-97-89 10:39:004.67[facility] XqgnulyLLDUMMAKOQ5292-59-20 10:39:008.7[facility] HCPCQAXUTC7963-27-05 10:39:0040.5[facility] MmmlcwuTKIFZLHMXP6607-66-78 10:39:00 86.7[facility] JmsodalOFFMLYBJPO6354-41-12 10:39:000.1[facility] HermannHEMATOLOGY 2016-05-05 10:39:001.4[facility] PiyymeuNCIXMXMIQN4326-36-70 10:39:000.4[facility] CheskiwWVLMYRHHET4271-74-85 10:39:0031.4[facility] IxudmaoCVEWYIEVAM4765-57-00 10:39:0047.1[facility] VbldzpqYZRAUUGZTA7006-13-56 10:39:0016.1[facility] ALGSOUZDZJ7316-26-82 10:39:004.1[facility] QktkxcmGJHXXOFCBH8387-09-94 10:39:001.1 [facility] BwzmvzdFTWEJIZTWN4908-45-64 10:39:002.7[facility] HermannHEMATOLOGY 2016-05-05 10:39:004.3[facility] HermannCHEM ZYJBX0506-84-49 12:16:008[facility] HermannCHEM IYKTL1396-99-74 12:16:004.6[facility] HermannCHEM DUIYV0725-16-71 12:16:000.75[facility] HermannCHEM NZOOO7309-94-36 12:16:37288Mtnubcyx HermannCHEM NZIZB2342-37-63 12:16:88125Uevioywo HermannCHEM ZKFUA1941-66-77 12:16:0027 [facility] HermannCHEM SQKEW9420-82-91 12:16:009.0[facility] HermannCHEM PANEL 2016-03-31 12:16:40165Wqtijyyf HermannCHEM WITYU8669-82-16 12:16:0098[facility] HermannCHEM YJHEK1669-76-14 12:16:0012.6[facility] YgtizsiBPHCAURXAF0996-48-26 12:16:000.7[facility] GemprtiYSBNDVTPOL9533-68-25 12:16:004.7[facility] TGQNCYYSVU5005-31-15 12:16:000.1[facility] QcpjefyDYPCMEQKEH8825-26-94 12:16:003.2 [facility] RfxjnqeMDFTNGFWJS2704-07-84 12:16:003.9[facility] HermannHEMATOLOGY 2016-03-31 12:16:0014.2[facility] AognbajLKXQUBXYSW4070-74-66 12:16:0044.4[facility] IcwtbktQORDEVIQXC1333-01-26 12:16:000.4[facility] BiemjcgSFRDAFXTMX2887-06-81 12:16:001.2[facility] GppopxoBMSYLAGJWQ1614-16-39 12:16:0036.0[facility] ESUVYFPQSE9164-54-61 12:16:38798Kjgueuly TcdexqvMVANGEZHXB8922-17-93 12:16:009.4 [facility] KtoilsfORUSBRVCDW5110-52-88 12:16:00 Test Item Value Reference Range Interpretation Comments MCH (test code = MCH) 30.7 pg 27.0-31.0 [facility] ZsxngymAWOVTFAHXM5450-07-94 12:16:0037.4[facility] HermannHEMATOLOGY 2016-03-31 12:16:0014.8[facility] HsiexupQJLCLKZCBV4550-68-39 12:16:0033.2[facility] OejbmmiHAWRIQZZPF5702-45-50 12:16:0092.5[facility] QbpyidtOUBPUTLLRN8855-19-80 12:16:008.8[facility] TgjqwmhGGAPJMAGXN3580-41-34 12:16:004.04[facility] KQXRPCVLJP2551-40-12 12:16:0012.4[facility] VyyrfakZBISWDVHYGRQ3229-16-14 12:13:00 14.2[facility] TwikimbNCGWBHUIEZLN1211-21-50 12:13:0091[facility] POOZDIDLZITK7486-44-67 12:13:008.8[facility] FhuhjheWCDECPVUJPOB2355-57-96 12:13:004.2[facility] RurbfreCSHKTTLMXYLB9082-69-41 12:13:18220Unrfzzrx Levi UREVKQDQDJNG9342-85-57 12:13:000.94[facility] FxellgdRGJSBZYGVBHD0242-66-15 12:13:59503Llldzpxk CvkfyepMNOMHFPBGLWO7179-59-94 12:13:0025[facility] YNWVIQQMSVNM9821-58-23 12:13:40737Xxmpyhud TojrimnVLHDTYRRLRJB0704-64-42 12:13:008[facility] GbamzuiYATIUUKXVX0667-88-46 12:13:000.4[facility] RXMRHNYGVX1935-08-56 12:13:003.8[facility] CizszuoKNIWMAMTKY4161-04-19 12:13:000.8 [facility] OgcydyyYGLJMASAEF0687-87-13 12:13:0030.7[facility] HermannHEMATOLOGY 2016-03-30 12:13:0052.1[facility] PhoxhpeEPXMACFWNR3116-96-19 12:13:0011.5[facility] XdpiabsRQENGTCYAB8987-03-93 12:13:005.2[facility] BwdtpnvLXCXBIMZTJ4318-80-05 12:13:002.2[facility] WuefzelXYVGTHYHKJ8120-69-37 12:13:000.5[facility] DHXLJRARZE0968-66-05 12:13:009.3[facility] WwvhxjqAOMIMBCWPW5372-51-81 12:13:007.3 [facility] XcqkgkdTODNEWEYSA3611-75-09 12:13:003.92[facility] HermannHEMATOLOGY 2016-03-30 12:13:0036.4[facility] AzdzceaJLFSAGMDSS9553-22-50 12:13:0092.8[facility] GpizqyoDASWTUYKKC4071-06-06 12:13:0012.0[facility] QishtwkQFYXVYRLNS1188-57-18 12:13:0015.3[facility] VkfctzlCUWOUYEAWA9735-83-85 12:13:70314Eyxifdsc Dennison BXIDVRUCSX6207-45-78 12:13:00 Test Item Value Reference Range Interpretation Comments MCH (test code = MCH) 30.5 pg 27.0-31.0 [facility] OdnwbckNGBDJIKGWJ6297-38-26 12:13:0032.8[facility] HermannELECTROLYTES 2016-03-29 12:10:0010.5[facility] JocgffrSNGKDGNNWEKL6310-18-22 12:10:62128 [facility] JadpnmlQHVYBBLRVYJB0312-91-99 12:10:0027[facility] HermannELECTROLYTES 2016-03-29 12:10:008.9[facility] VretojrEBPXOMOXNHMD3493-01-48 12:10:008[facility] YizxgaqMSKREJUHTKZV4788-65-36 12:10:0089[facility] NukjfhbEFADFHUZEJKJ2233-48-07 12:10:000.69[facility] YjtwikdSUIPMPKSUILQ4553-09-75 12:10:004.5[facility] ZGDERNEVWQDZ1757-09-11 12:10:26571Wafzqeib PqcldelTPDGHFKYEIJV5092-57-77 12:10:39700Zuosluit YwpczacJORKCBILAI4807-17-43 12:10:000.1[facility] BDSZYMKOHK5056-44-11 12:10:000.4[facility] EjdiuihCNJWIWYKZG3625-52-91 12:10:001.5 [facility] TtejfmvABCASAPBBM8434-43-73 12:10:004.1[facility] HermannHEMATOLOGY 2016-03-29 12:10:003.1[facility] NmjukzwVSQEXINZZF8883-98-09 12:10:004.4[facility] IfkhertQYXKYVXINV0728-24-73 12:10:0044.3[facility] SwmbtvyLKBFWAZFKM6317-43-16 12:10:001.0[facility] FxmnzdgJUTDXBUNWB3546-34-16 12:10:0016.4[facility] WZNKKPMJVM5489-93-54 12:10:0033.9[facility] PkcpqzjAJMDPQFSDP3019-01-96 12:10:00 285[facility] ZyttcyfXVTKVPWTOT6684-70-17 12:10:009.4[facility] HermannHEMATOLOGY 2016-03-29 12:10:009.2[facility] QmwepbtXWINZPJNPA8822-80-97 12:10:00 Test Item Value Reference Range Interpretation Comments MCH (test code = MCH) 30.7 pg 27.0-31.0 [facility] VczxutnVIOTVLMQIN0692-70-47 12:10:0092.7[facility] HermannHEMATOLOGY 2016-03-29 12:10:0014.9[facility] JbswofgWOUWWETGGZ8866-00-58 12:10:0033.1[facility] EgafvoxPHDABGGEYD0808-94-15 12:10:0011.3[facility] NyztidaEWEHEIUROT0731-17-22 12:10:0034.0[facility] OdmnhagIZQKIPOLUN4924-26-82 12:10:003.67[facility] CKJDQAAQEA5054-65-88 10:57:000.1[facility] HermannCHEM GVAGW5980-96-28 10:18:003.6 [facility] HermannCHEM LCHUG3634-99-70 10:18:002.1[facility] HermannHEMATOLOGY 2016-03-26 10:18:000.0[facility] IclenmlYIPIGEYYXP5817-48-80 10:18:000.0[facility] KtbgytgEVDCXXWROE0683-79-06 10:18:00Normal (03/26/16 4:18 AM)[facility] AHTNQIAASK4105-26-13 10:18:00Normal (03/26/16 4:18 AM)[facility] HermannHEMATOLOGY 2016-03-24 07:00:00Moderate *ABN*(03/24/16 1:00 AM)[facility]annHEMATOLOGY 2016-03-24 07:00:00Normal (03/24/16 1:00 AM)[facility] CckguieYIWOAGCRLG3055-90-02 07:00:0013.6[facility] QnbsszyFONNOLMVEX3429-79-44 07:00:0049.4[facility] BLOOD BANK YYIFUPN3267-20-65 12:23:00Negative (03/18/16 6:23 AM)[facility] BLOOD BANK UFUXKVZ1894-25-56 08:11:00Negative (03/14/16 2:11 AM)[facility] QFEYSZKVUC3704-28-18 12:00:0018.3[facility] FxqrhoiWVOVCZXAYR8358-06-49 12:00:00 13.1[facility] HermannBLOOD BANK TZDBSUJ5409-15-11 06:42:00Negative (03/08/16 12:42 AM)[facility] HermannCHEM ZYVKG0350-37-86 06:42:002.2[facility] HermannCHEM RVNXC9103-25-70 06:42:003.3[facility] HermannURINE AND JPRIP1338-91-88 18:12:00 Negative (03/07/16 12:12 PM)[facility] AND WLNAP2974-62-43 18:12:001 [facility] AND JUOGM1289-98-31 18:12:00Negative (03/07/16 12:12 PM) [facility] MKRQT3486-93-10 18:12:00Negative (03/07/16 12:12 PM) [facility] IJHDD8089-83-69 18:12:00<1[facility] AND TZYFK2767-11-59 18:12:001.008[facility] AND ESXXE5870-19-51 18:12:00 Clear (03/07/16 12:12 PM)[facility] AND ZYVQM2626-74-22 18:12:00 Yellow *NA*(03/07/16 12:12 PM)[facility] AND QXLZL7707-01-51 18:12:00 Negative *NA*(03/07/16 12:12 PM)[facility] ENOII9556-43-83 18:12:007.5[facility] HermannCHEM XJRMG8849-58-57 06:41:002.2[facility] HermannCHEM SRXKW0640-54-84 06:41:002.8[facility] BbnufsaYZCZBSDKJC2157-36-63 06:41:001+ *ABN*(03/06/16 12:41 AM)[facility] LukgzqoKAYSYQKMLK7428-69-59 06:41:00Normal (03/06/16 12:41 AM)[facility] HermannCHEM IZUBL8091-64-90 23:39:0038[facility] HermannCHEM LDGPG5118-35-14 23:39:71679Mmkrdtos HermannCHEM QTSMP0553-19-40 23:39:0023[facility] HermannCHEM MTTEP1609-61-10 23:39:006.0[facility] HermannCHEM YATLX9177-76-93 23:39:001.9[facility] HermannCHEM JCJLZ8039-84-91 23:39:000.3 [facility] HermannCHEM GBYTU2849-72-87 23:39:000.5[facility] HermannCHEM PANEL 2016-02-28 23:39:004.1[facility] HermannCHEM ODEUE9435-44-81 23:39:000.6[facility] HermannCHEM JNSIF9198-71-85 23:39:000.3[facility] DkzaxddDTCIHXXGJQ9626-43-23 23:39:000.21[facility] HermannCARDIAC RXGOPVQ5751-15-47 18:45:67635Yfegqedv HermannCARDIAC EBCBFTS5799-45-57 18:45:00<0.02[facility] HermannCARDIAC ENZYMES 2016-02-27 18:45:000.019[facility] HermannCARDIAC UQQOLIM3591-34-46 18:45:000.4 [facility] HermannCARDIAC ZNMYUMH2495-26-23 18:45:001.0[facility] HermannMYOGLOBIN 2016-02-27 18:45:0061[facility] RquphudKGECFUGMIU3780-03-85 02:54:000.20[facility]annBLOOD BANK RVIBGZY2490-01-73 06:09:00Product available (02/25/16 12:09 AM)[facility] VevgyabESIETPMLXD6053-97-10 09:11:0019.3[facility] HermannTOXICOLOGY 2016-02-24 09:11:509618Ocudfhrf HermannPARATHYROID NJSNRLF9936-64-31 06:40:00 1.04[facility] HermannPARATHYROID MRSIIGN7080-45-92 06:40:001.05[facility] GHJVNOWSPS8561-25-68 23:23:002.8[facility] BvlousfPMLBVOORAN7268-47-79 23:23:00 17.8[facility] LjcxgylNGROHCVLGI5821-55-93 23:23:00 Test Item Value Reference Range Interpretation Comments Max Amplitude Rapid (test code = Max 78 mm 52-71 Amplitude Rapid) [facility]EshqgcvYOTGKMAYAP3054-87-34 23:23:00 Test Item Value Reference Range Interpretation Comments Angle Rapid (test code = Angle 80 degrees 64-80 Rapid) [facility]ubwrNADVAOYJLO8941-32-35 23:23:00 Test Item Value Reference Range Interpretation Comments K-time Rapid (test code = K-time 0.8 min 0.6-2.3 Rapid) [facility] HospitalHfaredzUZBJLWJZTA4831-14-27 23:23:00 Test Item Value Reference Range Interpretation Comments R-time Rapid (test code = R-time 0.7 min 0.4-0.7 Rapid) [facility]roeSccekjiDTRGGTUSHX9831-51-94 23:23:00 Test Item Value Reference Range Interpretation Comments Split Point Rapid (test code = Split 0.5 min Point Rapid) [facility] HospitalNkmitsyFTNKQEUBWA6894-59-04 23:23:00 Test Item Value Reference Range Interpretation Comments ACT (TEG) Rapid (test code = ACT (TEG) 113 s 86-118 Rapid) [facility] NEZNVHW3802-54-40 16:30:00Product available (02/22/16 10:30 AM)[facility] DRSWIVI0972-51-15 16:30:00Product available (02/22/16 10:30 AM)[facility] HospitalGpksecbVWMUUGTENI9883-30-33 08:40:00 Test Item Value Reference Range Interpretation Comments PT (test code = PT) 14.0 s 12.0-14.7 [facility] HospitalEkkrthpYAGPSEDDEZ0099-63-86 08:40:001.06[facility] 2016-02-22 08:40:00 Test Item Value Reference Range Interpretation Comments PTT (test code = PTT) 35.4 s 22.9-35.8 [facility] OpzjgavLDXFSEVWCG9682-89-95 08:40:001+ *ABN*(02/22/16 2:40 AM)[facility]annPARATHYROID RPFORTB3852-27-38 08:40:001.06[facility]annPARATHYROID ULAPYTM3694-55-72 08:40:001.08[facility] CinonbzVOHISKOQWL2884-98-23 08:46:001+ *ABN*(02/21/16 2:46 AM)[facility] MtkpmkiFDCAYPEHHL6299-82-65 05:21:001+ *ABN*(02/20/16 12:21 AM)[facility]annPARATHYROID MULJDIW4934-64-81 05:21:00 1.09[facility]annPARATHYROID YECQFQZ8158-28-09 05:21:001.09[facility] FUFLFNGEEC0214-68-30 21:41:000.05[facility]annCHEM WFKMC2168-01-72 09:08:00 0.8[facility] ZxinlhpTRXGAFYZIP8129-82-70 09:08:00 Test Item Value Reference Range Interpretation Comments PT (test code = PT) 13.2 s 12.0-14.7 [facility] QbsxamcYSMIIZBIOM7395-48-00 09:08:000.98[facility] HermannMOLECULAR QCJUGGDURN9849-59-33 13:25:9485560951Oxhusocj HermannMOLECULAR DIAGNOSTIC 2016-02-15 13:25:007.1[facility] BehvnczOORHNTSRTO8918-16-86 00:39:00Negative *NA*(02/14/16 7:39 PM)[facility] GzlwrhsCATVUGFAJF9952-70-97 00:39:00Positive *ABN*(02/14/16 7:39 PM)[facility] ArsurwoWJYILHTOUH6932-61-26 00:39:00Negative *NA*(02/14/16 7:39 PM)[facility] HzgvtsgEIVXWJPDVU7915-86-88 00:39:00Negative *NA*(02/14/16 7:39 PM)[facility] BccgnpaYSZQAWPVAJ7652-44-88 00:30:00Negative *NA*(02/14/16 7:30 PM)[facility] MbgodtjSHDCUYZUXC3045-43-13 00:30:00Negative *NA*(02/14/16 7:30 PM)[facility] OiqcsxjROOEELNVHZ2131-70-93 00:30:00Negative *NA*(02/14/16 7:30 PM)[facility] KefwamlRNNTNHWQCY6712-56-92 00:30:00Negative *NA*(02/14/16 7:30 PM)[facility] JegzliqNWZRTLRZET8315-12-37 00:30:00Positive *ABN*(02/14/16 7:30 PM)[facility]annUR[facility] VZMJ3383-62-29 20:14:0014[facility]annURINE TCOS0813-01-76 20:14:0012[facility]annURINE XTPP1663-11-69 20:14:0083.7[facility]annURINE YWGA6864-47-98 20:14:52048.00[facility] CHEM YZZAR5206-59-94 17:39:001.5[facility] HermannCHEM CDFPY6707-97-02 12:05:001.9 [facility]annCHEM CXELN7382-56-31 05:37:004.8[facility]annHEMATOLOGY 2016-02-13 05:37:00Normal (02/13/16 12:37 AM)[facility]annCHEM PANEL 2016-02-12 21:36:92632Nvvnlprg HermannURINE AND YOAXP3789-69-75 20:18:00None Seen (02/12/16 3:18 PM)[facility] NISYV0072-91-37 20:18:00None Seen (02/12/16 3:18 PM)[facility] JPTOB1049-18-76 20:18:00None Seen (02/12/16 3:18 PM)[facility] YZEGA1620-05-36 20:18:00None Seen (02/12/16 3:18 PM)[facility] WYEYZ2786-96-16 20:18:00 Negative *NA*(02/12/16 3:18 PM)[facility] WTOUY9716-89-97 20:18:00Negative (02/12/16 3:18 PM)[facility] YNAWC7886-51-77 20:18:000.2[facility] AND IDUTH7184-46-02 20:18:00Large *ABN*(02/12/16 3:18 PM)[facility] JNDXZ8773-85-44 20:18:00 Negative *NA*(02/12/16 3:18 PM)[facility] YIAEB0031-50-34 20:18:00Negative (02/12/16 3:18 PM)[facility] QUCGD8816-72-06 20:18:00Negative (02/12/16 3:18 PM)[facility] YDRJR3311-34-46 20:18:00 Test Item Value Reference Range Interpretation Comments UA pH (test code = UA pH) 5.5 1 5.0-8.0 [facility] [id number] 20:18:00 Test Item Value Reference Range Interpretation Comments UA Spec Grav (test code = UA Spec 1.020 1 Grav) [facility] AHHJG6230-56-58 20:18:00Clear (02/12/16 3:18 PM) [facility] XLBNI6884-57-60 20:18:00Yellow *NA*(02/12/16 3:18 PM) [facility]DR[facility] YWRQWV2348-14-92 17:10:00Negative *NA*(02/12/16 12:10 PM) [facility] NERFJP3004-53-65 17:10:00Negative *NA*(02/12/16 12:10 PM) [facility] OUEJOW8202-14-47 17:10:00Positive *ABN*(02/12/16 12:10 PM) [facility] XZMRKE0951-72-53 17:10:00Positive *ABN*(02/12/16 12:10 PM) [facility] WHETOB2796-15-27 17:10:00Negative *NA*(02/12/16 12:10 PM) [facility] KAJLBS9219-97-56 17:10:00Negative *NA*(02/12/16 12:10 PM) [facility] HCCARR1140-27-66 17:10:00Negative *NA*(02/12/16 12:10 PM) [facility] MUGPCL3478-35-79 17:10:00See Note (02/12/16 12:10 PM) [facility] XDIY9774-57-36 17:10:0056.5[facility] CHEM 2016-02-12 17:10:0066[facility]UR[facility] ISYW1086-87-30 17:10:0033[facility]annUR[facility] FLMI0039-70-76 17:10:61654Cqrcbhqa NypexdeOIEBEGNVSF0981-83-31 16:25:0010.0[facility] FjatuwoMTGFPCOSEC9414-54-52 16:25:00 Test Item Value Reference Range Interpretation Comments Max Amplitude Rapid (test code = Max 67 mm 52-71 Amplitude Rapid) [facility] TtvlorePDIZQOQGRA9190-58-01 16:25:00 Test Item Value Reference Range Interpretation Comments K-time Rapid (test code = K-time 1.2 min 0.6-2.3 Rapid) [facility] YkktmocMAEEIGIJQU7371-88-50 16:25:00 Test Item Value Reference Range Interpretation Comments R-time Rapid (test code = R-time 0.8 min 0.4-0.7 Rapid) [facility] [id number] 16:25:00 Test Item Value Reference Range Interpretation Comments Angle Rapid (test code = Angle 74 degrees 64-80 Rapid) [facility] [id number] 16:25:00 Test Item Value Reference Range Interpretation Comments Split Point Rapid (test code = Split 0.6 min Point Rapid) [facility] [id number] 16:25:00 Test Item Value Reference Range Interpretation Comments ACT (TEG) Rapid (test code = ACT (TEG) 121 s 86-118 Rapid) [facility] [id number] 16:25:000.9[facility]ann[facility]XICOLOGY 2016-02-12 16:25:000.247[facility] [id number] 16:25:64088Vypkvhhe Dennison
--- OUTSIDE RECORDS SUMMARY | 2019-12-01 16:29 | XMS REPORT | Summary of Care ---
:1960 Author Organization [facility] Address [address] [place] [id number] Care Team Providers Name Role Phone MD Rosa Primary Care Provider Reason for Visit Reason Comments Refill Request Encounter Details Date Type Department Care Team Description 09/11/2019 Refill [facility] Pediatric and Eh Flynn III, MD Refill Request Adult Primary Care- [address] [place] [address] Dr. Muñoz [address] [place] [address] , [place] [address] [address] [place] [address] [phone] Allergies No Known Allergiesdocumented as of this encounter (statuses as of 09/11/2019) Medications Medication Sig Dispensed Refills Start Date End Date Status HYDROcodone-acetam TAKE BY MOUTH 1 0 02/10/2019 Active inophen 7.5-325 mg TABLET 2-3 per tablet TIMES A DAY NEEDED foLIC acid 1 mg Take 1 tablet 90 tablet 0 07/10/2019 Active tabletIndications: by mouth daily. Acute alcoholic gastritis without hemorrhage, Alcohol withdrawal syndrome without complication pantoprazole 40 mg Take 1 tablet 90 tablet 0 07/10/2019 Active EC by mouth daily. tabletIndications: Acute alcoholic gastritis without hemorrhage, Alcohol withdrawal syndrome without complication Magnesium Oxide Take 400 mg by 180 tablet 0 07/10/2019 Active 420 mg mouth 2 (two) TabIndications: times daily. Acute alcoholic gastritis without hemorrhage thiamine 100 mg Take 1 tablet 90 tablet 0 07/10/2019 Active tabletIndications: by mouth daily. Alcohol withdrawal syndrome without complication, Acute alcoholic gastritis without hemorrhage KCL 20 mEq Take 1 tablet 90 tablet 0 07/10/2019 Acti ve tabletIndications: by mouth daily. 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 Localized swelling of both lower legs, Essential hypertension lidocaine 5 % (700 Apply 1 Patch 90 Patch 0 07/10/2019 Active mg/patch) to area(s) patchIndications: daily. Chronic pain due to trauma Diclofenac Sodium Apply to 100 g 1 08/14/2019 A ctive (VOLTAREN) 1 % area(s) 4 gelIndications: (four) times Chronic pain due daily. Apply 4 to trauma g qid lisinopril 30 mg Take 1 tablet 90 tablet 0 09/11/2019 Active tabletIndications: by mouth daily. Essential hypertension NIFEDIPINE ER 30 TAKE 1 TABLET 30 tablet 3 09/11/2019 Active mg BY MOUTH EVERY tabletIndications: DAY Essential hypertension NIFEdipine ER 30 Take 1 tablet 90 tablet 0 07/10/2019 09/11/19 2 Discontinued mg by mouth daily. 0 tabletIndications: Essential hypertension documented as of this encounter [...] containing 4 or more times a w [place] 03/23/2019 alcohol? How many drinks containing alcohol [...] xxxxxxxxx 2017-Jessica [place] [id number] [place] [address] documented as of this encounter
[2019-12-01] MEDS ORDERED: NA CHLORIDE 0.9% 1,000 ML ONE (16:53)
[2019-12-01] MEDS ORDERED: DIAZEPAM 10 MG/2 ML INJ SYRINGE ONE ×2 (16:53→18:16)
[2019-12-01] MEDS ORDERED: ONDANSETRON 4 MG/2 ML VIAL ONE ×2 (16:53→21:28)
[2019-12-01 16:55] LABS: Absolute Lymphocytes (CBC) 1.8 K/uL (0.7-4.9); Basophils % 1.3 % (0-1.3); Hematocrit 40.3 % (39.6-49.0); MPV 11.1 fL (7.6-11.3); RBC Red Blood Cell Count 3.97 M/uL (4.33-5.43)
[2019-12-01 17:16] LABS: Albumin 3.2 g/dL (3.4-5.0); Bilirubin Total 1.8 mg/dL (0.2-1.0)
--- NOTE | 2019-12-01 17:44 | RAD REPORT ---
EXAM DESCRIPTION: CTAbdomen Pelvis W Contrast - 12/01/2019 5:33 pm CLINICAL HISTORY: Abdominal pain. ABD PAIN COMPARISON: No comparisons TECHNIQUE: Biphasic CT imaging of the abdomen and pelvis was performed with 100 ml non-ionic IV cont rast. All CT scans are performed using dose optimization technique as appropriate and may include automated exposure control or mA/KV adjustment according to patient size. FINDINGS: The lung bases are clear. Mild diffuse fatty liver. No focal mass or intrahepatic biliary dilatation. Cholelithiasis. The splee n, pancreas, adrenal glands and kidneys are within normal limits. No bowel obstruction, free air, free fluid or abscess. Mild colon wall thickening is noted, equivocal for colitis. The appendix is normal. Small fat containing ventral hernia. No evidence of significant lymphadenopathy. No suspicious bony findings. IMPRESSION: Advanced diffuse fatty liver. Cholelithiasis. Equivocal findings of colitis.
[2019-12-01] MEDS ORDERED: MEPERIDINE HCL 50 MG/ML ONE (17:54)
[2019-12-01] MEDS ORDERED: MORPHINE 4 MG/ML SYR ONE (18:16)
--- NOTE | 2019-12-01 18:16 | RAD REPORT ---
EXAM DESCRIPTION: US - Abdomen Exam Limited - 12/01/2019 6:07 pm CLINICAL HISTORY: ABD PAIN COMPARISON: Renal Ultrasound-Complete dated 06/19/2019 FINDINGS: The gallbladder demonstrates small shadowing gallstones. Gallbladder wall is upper limit o f normal measuring 3-4 mm. The common bile duct is normal measuring 4 mm. The liver demonstrates no findings of intrahepatic biliary dilatation. IMPRESSION: Cholelithiasis with upper limit of normal gallbladder wall. If clinical symptomology pe rsists, HIDA scan may be of value.
--- NOTE | 2019-12-01 18:48 | EDPHYS ---
Physician Documentation [facility] Name: Jose Toussaint Age: 59 yrs Sex: Male : 1960 Arrival Date: 12/01/2019 Time: 16:16 Bed 3 Private MD: ED Physician Artur Harper HPI: 11/30 17:02 This 59 yrs old Male presents to ER via Unassigned with complaints of rn Nausea/Vomiting/Diarrhea, Abdominal Pain. 17:02 The patient presents to the emergency department with nausea, vomiting, diarrhea, rn abdominal pain. Onset: The symptoms/episode began/occurred today. Possible causes: unknown. Associated signs and symptoms: Pertinent positives: abdominal pain, anorexia, Pertinent negatives: GI bleeding. Severity of symptoms: At their worst the symptoms were moderate in the emergency department the symptoms are unchanged. The patient has experienced similar episodes in the past. Reports drinks heavily daily, last drink this AM and only one drink, reports increased nausea/vomiting/diarrhea/abd pain, feels shaky and similar to when had ETOH withdrawal in past. Also reports 2 months ago diagnosed with gallstones and pancreatitis, one stone "removed from throat", but gallbladder not taken out. . Historical: - Allergies: 16:16 No Known Allergies; aa5 - PMHx: 16:16 Chronic pain; Hypertension; Alcoholism; Pancreatitis; aa5 - Immunization history:: Adult Immunizations unknown. - Social history:: Smoking status: Patient reports the use of cigarette tobacco products, Patient uses alcohol, on a daily basis. patient/guardian reports chronic longstanding heavy alcohol consumption. patient/guardian reports recent binge of alcohol consumption. - Family history:: not pertinent. - Hospitalizations: : Patient was recently seen at. ROS: 17:02 Constitutional: Negative for fever, chills, and weight loss, Eyes: Negative for injury, rn pain, redness, and discharge, Neck: Negative for injury, pain, and swelling, Cardiovascular: Negative for chest pain, palpitations, and edema, Respiratory: Negative for shortness of breath, cough, wheezing, and pleuritic chest pain, Abdomen/GI: Negative for constipation MS/Extremity: Negative for injury and deformity, Skin: Negative for injury, rash, and discoloration, Neuro: Negative for headache, weakness, numbness, tingling, and seizure. Exam: 17:02 Constitutional: This is a well developed, well nourished patient who is awake, alert, rn shaking Head/Face: Normocephalic, atraumatic. ENT: dry MM Cardiovascular: Tachycardic, regular Respiratory: Mild tachypnea, no retractions Abdomen/GI: soft, mild epigastric tenderness MS/ Extremity: Pulses equal, no cyanosis. Neurovascular intact. Full, normal range of motion. Equal circumference. Neuro: Awake and alert, GCS 15, + gross extremity tremor with tongue fasciculations. Vital Signs: 16:18 BP 179 / 119; Pulse 125; Resp 22 S; Temp 98.9(O); Pulse Ox 99% on R/A; aa5 17:00 BP 161 / 92; Pulse 120; Resp 20; Pulse Ox 100% ; sv 18:16 BP 142 / 107; Pulse 123; Resp 20; Pulse Ox 100% ; sv 20:56 BP 167 / 96; Pulse 118; Resp 19; Temp 98.4; Pulse Ox 100% on R/A; ea 21:33 BP 168 / 90; Pulse 119; Resp 19; Pulse Ox 99% ; ea MDM: 16:30 Patient medically screened. rn 18:44 Differential diagnosis: Nonspecific abd pain, gastritis, cholecystitis, pancreatitis, libertad diverticulitis, viral gastroenteritis, gastroenteritis. Data reviewed: vital signs, nurses notes, lab test result(s), EKG, radiologic studies. Data interpreted: air sampling and monitoring: rate is 123 beats/min, rhythm is regular. Test interpretation: by ED physician or midlevel provider: ECG, plain radiologic studies. Counseling: I had a detailed discussion with the patient and/or guardian regarding: the historical points, exam findings, and any diagnostic results supporting the discharge/admit diagnosis, the presence of at least one elevated blood pressure reading (>120/80) during this emergency department visit, lab results, the need to transfer to another facility, for higher level of care, [facility] does not immediately have the required specialist. 18:50 Medication response: Zofran markedly relieved the patient's nausea. libertad 19:12 Response to treatment: the patient's symptoms have markedly improved after treatment, libertad patient is well hydrated. ED course: pt transferred to [facility], npo, ivf and abx on board, pt aware. 11/30 16:38 Order name: Basic Metabolic Panel rn 11/30 16:38 Order name: CBC with Diff; Complete Time: 17:01 11/30 16:38 Order name: Hepatic Function rn 11/30 16:38 Order name: Lipase rn 11/30 18:46 Order name: Magnesium; Complete Time: 20:38 [facility] 11/30 18:46 Order name: NT PRO-BNP; Complete Time: 20:38 [facility] 11/30 17:01 Order name: US Abdomen Limited; Complete Time: 18:43 11/30 17:01 Order name: CT Abd/Pelvis - IV Contrast Only; Complete Time: 17:55 11/30 17:01 Order name: XRAY Chest (1 view); Complete Time: 19:05 11/30 18:46 Order name: PT-INR; Complete Time: 19:21 [facility] 11/30 18:46 Order name: Troponin (emerg Dept Use Only); Complete Time: 20:38 [facility] 11/30 16:38 Order name: IV Saline Lock; Complete Time: 16:41 11/30 16:38 Order name: Labs collected and sent; Complete Time: 16:41 11/30 18:46 Order name: EKG; Complete Time: 18:46 [facility] 11/30 18:46 Order name: Cardiac monitoring; Complete Time: 18:52 [facility] 11/30 18:46 Order name: EKG - Nurse/Tech; Complete Time: 18:52 [facility] 11/30 18:46 Order name: O2 Per Protocol; Complete Time: 18:52 [facility] 11/30 18:46 Order name: O2 Sat Monitoring; Complete Time: 18:52 [facility] 11/30 19:24 Order name: IV Saline Lock - Large Bore; Complete Time: 21:34 [facility] Administered Medications: 07:42 Drug: Demerol 50 mg Route: IVP; Site: right antecubital; aa5 07:50 Follow up: Response: No adverse reaction aa5 16:50 Drug: Zofran (Ondansetron) 4 mg Route: IVP; Site: right antecubital; aa5 16:55 Follow up: Response: No adverse reaction aa5 16:50 Drug: Valium 10 mg Route: IVP; Site: right antecubital; aa5 16:55 Follow up: Response: No adverse reaction aa5 16:50 Drug: NS 0.9% 1000 ml Route: IV; Rate: 1000 ml; Site: right antecubital; aa5 18:15 Follow up: IV Status: Completed infusion; IV Intake: 1000ml aa 18:11 Drug: Valium 10 mg Route: IVP; Site: right antecubital; aa5 18:25 Follow up: Response: No adverse reaction aa5 18:11 Drug: morphine 4 mg Route: IVP; Site: right antecubital; aa5 18:25 Follow up: Response: No adverse reaction; Pain is decreased [facility] 18:49 CANCELLED (Duplicate Order): NS 0.9% 1000 ml IV at 125 ml/hr continuous libertad 19:01 Drug: NS 0.9% with KCl 20 mEq/L 1000 ml Route: IV; Rate: 125 ml/hr; Site: right aa antecubital; 21:34 Follow up: Response: No adverse reaction; IV Status: Infusion continued upon transfer ea 19:02 Drug: Potassium Chloride 20 mEq Route: IV; Rate: per protocol; Site: right antecubital; [facility] 21:33 Follow up: Response: No adverse reaction; IV Status: Completed infusion ea 19:45 Drug: Ativan 2 mg Route: IVP; Site: left hand; ea 20:30 Follow up: Response: No adverse reaction ea 19:51 Drug: NS 0.9% 1000 ml Route: IV; Rate: 1 bolus; Site: left hand; ea 21:34 Follow up: Response: No adverse reaction; IV Status: Completed infusion; IV Intake: ea 1000ml 19:52 Drug: NS 0.9% 1000 ml Route: IV; Rate: 1 bolus; Site: left hand; ea 21:33 Follow up: BP 168 / 90; Pulse 119 bpm; Resp 19 bpm; Pulse Ox 99% ea 19:52 Drug: Zosyn 3.375 grams Route: IVPB; Infused Over: 60 mins; Site: left hand; ea 19:52 Drug: Pepcid 20 mg Route: IVP; Site: left hand; ea 20:30 Follow up: Response: No adverse reaction ea 19:52 Drug: Thiamine 100 mg Route: IV; Rate: per protocol; Site: left hand; ea 20:06 Not Given (Duplicate Order): NS 0.9% 1000 ml IV at 1 bolus Per protocol; 1000 mL bolus ea 21:13 Drug: Magnesium Sulfate 2 grams Route: IVPB; Infused Over: 2 hrs; Site: right ea antecubital; 21:34 Follow up: Response: No adverse reaction; IV Status: Infusion continued upon transfer ea 21:23 Drug: Dilaudid 1 mg Route: IVP; Site: left hand; ea 21:35 Follow up: Response: RASS: Alert and Calm (0) ea 21:23 Drug: Zofran (Ondansetron) 4 mg Route: IVP; Site: left hand; ea 21:35 Follow up: Response: No adverse reaction ea Disposition: 12/01/19 18:47 Transfer ordered to [facility]. Diagnosis are Abdominal tenderness, Alcohol abuse, Cholecystitis, Cholelithiasis, Acute pancreatitis, Hypokalemia, Left sided colitis, Hypomagnesemia. - Reason for transfer: Higher level of care. - Accepting physician is to [facility]. - Condition is Fair. - Problem is new. - Symptoms have improved. Signatures: Dispatcher [employer] EDMS Artur Harper MD MD cha Nieto, Roman, MD MD rn Calderon, Audri, RN RN aaHaylie Soto RN RN ea Corrections: (The following items were deleted from the chart) 17:28 17:02 Constitutional: This is a well developed, well nourished patient who is awake, rn alert, shaking Head/Face: Normocephalic, atraumatic. ENT: dry MM rn 18:49 18:42 NS 0.9% 1000 ml IV at 125 ml/hr continuous ordered. [facility] 18:55 18:47 12/01/2019 18:47 Transfer ordered to [facility]. [facility] Diagnosis is Abdominal tenderness; Alcohol abuse; Cholecystitis; Cholelithiasis; Acute pancreatitis; Hypokalemia. Reason for transfer: Higher level of care. Accepting physician is to [facility]. Condition is Fair. Problem is new. Symptoms have improved. libertad 20:39 18:55 12/01/2019 18:47 Transfer ordered to [facility]. [facility] Diagnosis is Abdominal tenderness; Alcohol abuse; Cholecystitis; Cholelithiasis; Acute pancreatitis; Hypokalemia; Left sided colitis. Reason for transfer: Higher level of care. Accepting physician is to [facility]. Condition is Fair. Problem is new. Symptoms have improved. libertad 21:38 20:39 12/01/2019 18:47 Transfer ordered to [facility]. ea Diagnosis is Abdominal tenderness; Alcohol abuse; Cholecystitis; Cholelithiasis; Acute pancreatitis; Hypokalemia; Left sided colitis; Hypomagnesemia. Reason for transfer: Higher level of care. Accepting physician is to [facility]. Condition is Fair. Problem is new. Symptoms have improved. libertad
--- NOTE | 2019-12-01 18:48 | ER ---
Nurse's Notes [facility] Name: Jose Toussaint Age: 59 yrs Sex: Male : 1960 Arrival Date: 12/01/2019 Time: 16:16 Bed 3 Private MD: Diagnosis: Abdominal tenderness;Alcohol abuse;Cholecystitis;Cholelithiasis;Acute pancreatitis;Hypokalemia;Left sided colitis;Hypomagnesemia Presentation: 11/30 16:16 Chief complaint: EMS states: n/v/d, abd pain, hx of pancreatitis, also has been on an aa5 alcohol binge, last drink was this morning at 0800, also has been SOB for past two months. 16:16 Method Of Arrival: EMS: [facility] aa5 16:16 Acuity: SASHA 2 aa5 16:16 Coronavirus screen: Client denies travel out of the [place] in the last 14 days. cough aa5 unrelated to allergies, shortness of breath, Client presents with at least one sign or symptom that may indicate coronavirus-19. Standard/surgical mask placed on the client. Provider contacted for isolation considerations. Onset of symptoms was 2019. 16:23 Ebola Screen: Patient negative for fever greater than or equal to 101.5 degrees iw Fahrenheit, and additional compatible Ebola Virus Disease symptoms Patient denies exposure to infectious person. Patient denies travel to an Ebola-affected area in the 21 days before illness onset. No symptoms or risks identified at this time. Initial Sepsis Screen: Does the patient meet any 2 criteria? No. Patient's initial sepsis screen is negative. Does the patient have a suspected source of infection? No. Patient's initial sepsis screen is negative. Risk Assessment: Do you want to hurt yourself or someone else? Patient reports no desire to harm self or others. Historical: - Allergies: 16:16 No Known Allergies; aa5 - PMHx: 16:16 Chronic pain; Hypertension; Alcoholism; Pancreatitis; aa5 - Immunization history:: Adult Immunizations unknown. - Social history:: Smoking status: Patient reports the use of cigarette tobacco products, Patient uses alcohol, on a daily basis. patient/guardian reports chronic longstanding heavy alcohol consumption. patient/guardian reports recent binge of alcohol consumption. - Family history:: not pertinent. - Hospitalizations: : Patient was recently seen at. Screenin:40 Abuse screen: Denies threats or abuse. Nutritional screening: No deficits noted. aa5 Tuberculosis screening: No symptoms or risk factors identified. Fall Risk Fall in past 12 months (25 points). IV access (20 points). Total Perez Fall Scale indicates High Risk Score (45 or more points). Fall prevention measures have been instituted. Side Rails Up X 2 Placed Close to Nursing Station. Assessment: 16:18 General: Appears uncomfortable, Behavior is calm, cooperative, Reports last drink today aa5 at 0800, reports he drinks vodka everyday. Noted to be shaking. . Pain: Complains of pain in right upper quadrant and left upper quadrant Pain does not radiate. Pain currently is 8 out of 10 on a pain scale. Quality of pain is described as sharp, Pain began 1-2 months ago Is continuous. Neuro: Level of Consciousness is awake, alert, obeys commands, Oriented to person, place, time, situation. Cardiovascular: Heart tones S1 S2 present Rhythm is regular. Respiratory: Airway is patent Respiratory effort is even, unlabored, Respiratory pattern is regular, symmetrical, Breath sounds are clear bilaterally. GI: Abdomen is round non-distended, Bowel sounds present X 4 quads. Abd is soft and non tender X 4 quads. Reports diarrhea, nausea, vomiting, Patient currently denies vomiting blood, denies bloody stools. : No signs and/or symptoms were reported regarding the genitourinary system. EENT: No signs and/or symptoms were reported regarding the EENT system. Derm: Skin is pink, warm \T\ dry. Musculoskeletal: Range of motion: intact in all extremities. 17:25 Reassessment: Patient is alert, oriented x 3, equal unlabored respirations, skin aa5 warm/dry/pink. Patient states feeling better. Pt appears calm and comfortable at this time. Pt requesting pain medication at this time, was notified. . 17:25 Reassessment: No shaking noted. . aa5 17:26 Reassessment: Pt to CT via stretcher . aa5 17:38 Reassessment: Patient is alert, oriented x 3, equal unlabored respirations, skin aa5 warm/dry/pink. Pt back from CT scan . 18:11 Reassessment: Patient is alert, oriented x 3, equal unlabored respirations, skin aa5 warm/dry/pink. Pt reports pain is unchanged, shaking noted. MD was notified (see MAR). 18:25 Reassessment: Patient is alert, oriented x 3, equal unlabored respirations, skin aa5 warm/dry/pink. Pt appears comfortable, no shaking noted at this time. Pt states pain has decreased. . 19:00 General: Appears uncomfortable, Behavior is appropriate for age. Pain: Complains of ea pain in left upper quadrant and right upper quadrant. Neuro: Level of Consciousness is awake, alert, obeys commands, Oriented to person, place, time, situation. Cardiovascular: Patient's skin is warm and dry. Respiratory: Airway is patent Respiratory effort is even, unlabored, Respiratory pattern is regular, symmetrical. Derm: Skin is pink, warm \T\ dry. Musculoskeletal: Circulation, motion, and sensation intact. 20:55 Reassessment: Report called to Nicole GORDON at [facility]. Reassessment: ea Patient and/or family updated on plan of care and expected duration. Pain level reassessed. Patient is alert, oriented x 3, equal unlabored respirations, skin warm/dry/pink. 21:36 Reassessment: Patient and/or family updated on plan of care and expected duration. Pain ea level reassessed. Patient is alert, oriented x 3, equal unlabored respirations, skin warm/dry/pink. EMS at facility, report given to [facility]. Pt transferred to [facility], left ED via stretcher per EMS. Pt tolerating well. 23:55 Reassessment: [facility] transfer center reports that the pt has arrived sg without results of labs or radiology at this time. I have faxed a copy of the results to the [facility] fax number of [phone]. Vital Signs: 16:18 BP 179 / 119; Pulse 125; Resp 22 S; Temp 98.9(O); Pulse Ox 99% on R/A; aa5 17:00 BP 161 / 92; Pulse 120; Resp 20; Pulse Ox 100% ; sv 18:16 BP 142 / 107; Pulse 123; Resp 20; Pulse Ox 100% ; sv 20:56 BP 167 / 96; Pulse 118; Resp 19; Temp 98.4; Pulse Ox 100% on R/A; ea 21:33 BP 168 / 90; Pulse 119; Resp 19; Pulse Ox 99% ; ea ED Course: 16:16 Patient arrived in ED. iw 16:16 Arm band placed on. aa5 16:16 Patient has correct armband on for positive identification. Placed in gown. Bed in low aa5 position. Call light in reach. Side rails up X2. environmental monitoring technician on. Pulse ox on. NIBP on. 16:24 Rosaura London, HEIDI is Primary Nurse. sv 16:30 Louis Tanner MD is Attending Physician. rn 16:34 Anay Dotson RN is Primary Nurse. aa5 16:34 Inserted saline lock: 20 gauge in right antecubital area, using aseptic technique. aa5 Blood collected. 17:13 Triage completed. iw 17:33 CT Abd/Pelvis - IV Contrast Only In Process Unspecified. EDMS 18:07 US Abdomen Limited In Process Unspecified. EDMS 18:12 XRAY Chest (1 view) In Process Unspecified. EDMS 18:18 Attending Physician role handed off by Louis Tanner MD libertad 18:18 Artur Harper MD is Attending Physician. libertad 18:[address] Harper with Negar Dodd from the [facility] Transfer. eb 19:05 Report given to HEIDI Stallings and HEIDI Laws. aa5 19:10 Inserted saline lock: 22 gauge in left hand, using aseptic technique. ea 21:37 No provider procedures requiring assistance completed. Patient transferred, IV remains ea in place. Administered Medications: 07:42 Drug: Demerol 50 mg Route: IVP; Site: right antecubital; aa5 07:50 Follow up: Response: No adverse reaction aa5 16:50 Drug: Zofran (Ondansetron) 4 mg Route: IVP; Site: right antecubital; aa5 16:55 Follow up: Response: No adverse reaction aa5 16:50 Drug: Valium 10 mg Route: IVP; Site: right antecubital; aa5 16:55 Follow up: Response: No adverse reaction aa5 16:50 Drug: NS 0.9% 1000 ml Route: IV; Rate: 1000 ml; Site: right antecubital; aa5 18:15 Follow up: IV Status: Completed infusion; IV Intake: 1000ml aa5 18:11 Drug: Valium 10 mg Route: IVP; Site: right antecubital; aa5 18:25 Follow up: Response: No adverse reaction [facility] 18:11 Drug: morphine 4 mg Route: IVP; Site: right antecubital; aa5 18:25 Follow up: Response: No adverse reaction; Pain is decreased aa5 18:49 CANCELLED (Duplicate Order): NS 0.9% 1000 ml IV at 125 ml/hr continuous libert[facility] 19:01 Drug: NS 0.9% with KCl 20 mEq/L 1000 ml Route: IV; Rate: 125 ml/hr; Site: right aa5 antecubital; 21:34 Follow up: Response: No adverse reaction; IV Status: Infusion continued upon transfer ea 19:02 Drug: Potassium Chloride 20 mEq Route: IV; Rate: per protocol; Site: right antecubital; aa 21:33 Follow up: Response: No adverse reaction; IV Status: Completed infusion ea 19:45 Drug: Ativan 2 mg Route: IVP; Site: left hand; ea 20:30 Follow up: Response: No adverse reaction ea 19:51 Drug: NS 0.9% 1000 ml Route: IV; Rate: 1 bolus; Site: left hand; ea 21:34 Follow up: Response: No adverse reaction; IV Status: Completed infusion; IV Intake: ea 1000ml 19:52 Drug: NS 0.9% 1000 ml Route: IV; Rate: 1 bolus; Site: left hand; ea 21:33 Follow up: BP 168 / 90; Pulse 119 bpm; Resp 19 bpm; Pulse Ox 99% ea 19:52 Drug: Zosyn 3.375 grams Route: IVPB; Infused Over: 60 mins; Site: left hand; ea 19:52 Drug: Pepcid 20 mg Route: IVP; Site: left hand; ea 20:30 Follow up: Response: No adverse reaction ea 19:52 Drug: Thiamine 100 mg Route: IV; Rate: per protocol; Site: left hand; ea 20:06 Not Given (Duplicate Order): NS 0.9% 1000 ml IV at 1 bolus Per protocol; 1000 mL bolus ea 21:13 Drug: Magnesium Sulfate 2 grams Route: IVPB; Infused Over: 2 hrs; Site: right ea antecubital; 21:34 Follow up: Response: No adverse reaction; IV Status: Infusion continued upon transfer ea 21:23 Drug: Dilaudid 1 mg Route: IVP; Site: left hand; ea 21:35 Follow up: Response: RASS: Alert and Calm (0) ea 21:23 Drug: Zofran (Ondansetron) 4 mg Route: IVP; Site: left hand; ea 21:35 Follow up: Response: No adverse reaction ea Intake: 18:15 IV: 1000ml; Total: 1000ml. aa5 21:34 IV: 1000ml; Total: 2000ml. ea Outcome: 18:47 ER care complete, transfer ordered by . [facility] 21:37 Transferred by ground EMS to [facility], Transfer form completed. ea 21:37 Condition: stable 21:37 Instructed on the need for transfer, Demonstrated understanding of instructions. 21:38 Patient left the ED. ea Signatures: Dispatcher [employer] EDMS Rosaura London RN HEIDI Jose David Andrade RN Artur López MD MD cha Williams, Irene, RN RN iw Nieto, Roman, MD MD rn Calderon, Audri RN Haylie Christie RN Jada De uLna ea Corrections: (The following items were deleted from the chart) 16:34 16:34 Primary Nurse role handed off by Rosaura London RN [facility] aa5 16:35 16:23 Chief complaint: EMS states: n/v/d, abd pain, hx of pancreatitis, also has been iw on an alcohol binge, last drink was this morning at 0800 iw 17:15 16:23 Chief complaint: EMS states: n/v/d, abd pain, hx of pancreatitis, also has been aa5 on an alcohol binge, last drink was this morning at 0800, also has been SOB for past two months iw 17:15 16:23 Method Of Arrival: EMS: [facility] aa5 17:15 16:23 Acuity: SASHA 2 iw aa5 17:47 16:18 General: Appears uncomfortable, Behavior is calm, cooperative, Reports last drink aa5 today at 0800, reports he drinks vodka everyday. aa5 21:35 21:34 Response: No adverse reaction; Pain is decreased ea ea 21:35 21:35 Response: No adverse reaction ea ea
--- NOTE | 2019-12-01 19:01 | RAD REPORT ---
EXAM DESCRIPTION: RAD - Chest Single View - 12/01/2019 6:12 pm CLINICAL HISTORY: SOB Chest pain. COMPARISON: Chest Single View dated 06/21/2019; Chest Single View dated 10/30/2018; Chest Single View d ated 05/21/2018; CHEST SINGLE VIEW dated 01/22/2011 FINDINGS: Portable technique limits examination quality. The lungs are grossly clear. The heart is normal in size. Hardware is noted in the left ribs and left clavicle, without complication evident. IMPRESSION: No acute intrathoracic process suspected.
[2019-12-01] MEDS ORDERED: KCL 20 MEQ/100 mL IVPB 20 MEQ/100 ML BAG IV ONE (19:05)
[2019-12-01] MEDS ORDERED: NS KCL 20MEQ 1,000 ML IV ONE (19:05)
[2019-12-01 19:14] LABS: Protime INR 1.02
[2019-12-01] MEDS ORDERED: THIAMINE 200 MG/2 ML INJ ONE (19:27)
[2019-12-01] MEDS ORDERED: NA CHLORIDE 0.9% 2,000 ML ONE (19:28)
[2019-12-01] MEDS ORDERED: PIPER/TAZO/NS 3.375gm 3.375 GM/100 ML BAG ONE (19:28)
[2019-12-01] MEDS ORDERED: FAMOTIDINE 20 MG/2 ML VIAL IV ONE (19:28)
[2019-12-01] MEDS ORDERED: LORazepam 2 MG/ML VIAL ONE (19:30)
[2019-12-01 19:31] LABS: Magnesium 1.5 mg/dL (1.8-2.4); NT PRO-BNP 369 pg/mL (<125); Troponin (Emerg Dept Use Only) < 0.02 ng/mL (0.0-0.045)
[2019-12-01] MEDS ORDERED: Magnesium Sulfate 2gm IVPB 2 G/50 ML BAG IV ONE (21:12)
[2019-12-01] MEDS ORDERED: HYDROMORPHONE HCL 1 MG/ML INJ ONE (21:28)
[2019-12-01 22:03] VITALS: TEMP 98.4
[2019-12-01 22:04] VITALS: BP 168/90; O2SAT 99
--- NOTE | 2019-12-03 07:43 | EKG ---
Test Date: 2019-12-01 Test Time: 16:56:17 Digital Media Sales Consultant: PARESH MEASUREMENT RESULTS: Intervals: Rate: 119 MI: 180 QRSD: 72 QT: 322 QTc: 452 [place]: P: 68 MI: 180 QRS: -27 T: 38 INTERPRETIVE STATEMENTS: Sinus tachycardia with premature atrial complexes Otherwise normal ECG Compared to ECG 06/18/2019 21:49:30 Atrial premature complex(es) now present Electronically Signed On 12-03-19 07:40:05 CDT by Adalberto Nicole
== END 2019-12-01 21:38 | disposition short-term general hospital (02) ==
LOC: ER 16:19
DX: K80.10 Calculus of gallbladder with chronic cholecystitis without obstruction (principal); F10.20 Alcohol dependence, uncomplicated; K85.90 Acute pancreatitis without necrosis or infection, unspecified; K51.50 Left sided colitis without complications; E87.6 Hypokalemia; E83.42 Hypomagnesemia
CPT/HCPCS: 93005; 85025; 80048; 36415; 83735; 85610; 80076; 84484; 83690; 83880; 74177; 71045; 76705; Q9967; J3411; J3480; J3360 ×2; J2543; J2175; J3475; J1170; J7030 ×2; J2405 ×2

== ENCOUNTER 2020-03-06 09:19 | Emergency (ER) | payer OTHER ==
--- OUTSIDE RECORDS SUMMARY | 2020-03-06 09:23 | XMS REPORT | Clinical Summary ---
:1960 Author Organization [facility] Address [address] [place] [address] Care Team Providers Name Role Phone Pcp, No Primary Care Provider Unavailable Allergies No Known Allergies Medications Medication Sig Dispensed Refills Start Date End Date Status folic acid (FOLVITE) 1 Take 1,000 mcg by 0 0 Active MG tablet mouth daily. furosemide (LASIX) 20 Take 1 tablet by 0 11/25/2019 Active MG tablet mouth daily. lisinopriL Take 30 mg by 0 10/06/2019 Acti ve (PRINIVIL,ZESTRIL) 30 mouth daily. MG tablet NIFEdipine (ADALAT CC) Take 30 mg by 0 11/03/2019 Active 30 MG 24 hr tablet mouth daily. pantoprazole (PROTONIX) Take 40 mg by 0 11/04/2019 Active 40 MG tablet mouth daily. potassium chloride SA Take 20 mEq by 0 10/06/2019 Active (K-DUR,KLOR-CON) 20 MEQ mouth daily. tablet venlafaxine Take 37.5 mg by 0 11/03/2019 A ctive (EFFEXOR-XR) 37.5 MG 24 mouth daily. hr capsule Active Problems Problem Noted Date Alcohol withdrawal 12/01/2019 Encounters Date Type Specialty Care Team Description 12/07/2019 Anesthesia Event Jagdeep Montanez MD 12/07/2019 Surgery James Carr LAPAROSCOPY, C HOLECYS MD TECTOMY 12/02/2019 Orders Only General Internal Medicine 12/01/2019 - Hospital Encounter General Internal Apurva Cummings ol withdrawal syndrome without complication (HCC) (Primary Dx); 12/08/2019 Medicine Elvira Recinos-lior raffi acute pancreatitis without infection or necrosis; Essential hypertension; Yenifer Barragan Alcohol wit hdrawal delirium (HCC); MD Aria Cholecystitis; Gallstone pancr eatitis 12/01/2019 Abstract Internal Medicine Apurva Cummings MD after 03/06/2019 Social History Tobacco Use Types Packs/Day Years Used Date Former Smoker Smokeless Tobacco: Never Used Alcohol Use Drinks/Week oz/Week Comments Yes 1/4 gallon vodka per day Sex Assigned at Date Recorded Not on file Last Filed Vital Signs Vital Sign Reading Time Taken Comments Blood Pressure 129/76 12/08/2019 11:40 AM CDT Pulse 110 12/08/2019 11:40 AM CDT Temperature 36.3 C (97.3 F) 12/08/2019 11:40 AM CDT Respiratory Rate 18 12/08/2019 11:40 AM CDT Oxygen Saturation 97% 12/08/2019 11:40 AM CDT Inhaled Oxygen Concentration - - Weight 106.6 kg (235 lb 0.2 oz) 12/06/2019 5:30 AM CDT Height 188 cm (6' 2") 12/03/2019 7:31 PM CDT Body Mass Index 30.17 12/03/2019 7:31 PM CDT Plan of Treatment Health Maintenance Due Date Last Done Comments COLON CANCER SCREENING COLONOSCOPY 1960 INFLUENZA VACCINE (#1) 2019 06/19/2019, 02/13/2016 LIPID PANEL 12/01/2022 12/02/2019, 08/06/2018 Procedures Procedure Name Priority Date/Time Associated Diagnosis Comme nts RHYTHM STRIP - SCAN 12/11/2019 12:00 PM CDT RHYTHM STRIP - SCAN 12/10/2019 8:20 AM CDT TRANSFUSION SERVICE 12/08/2019 6:01 REPORT - SCAN PM CDT CBC W/PLT COUNT & Routine 12/08/2019 5:21 Result s for this AUTO DIFFERENTIAL AM CDT procedure are in the results section. HEPATIC FUNCTION Routine 12/08/2019 5:21 Results for this PANEL AM CDT procedure are i n the results section. BASIC METABOLIC Routine 12/08/2019 5:21 Results for this PANEL (7) AM CDT procedure are i n the results section. CBC W/PLT COUNT & Routine 12/08/2019 5:21 Result s for this AUTO DIFFERENTIAL AM CDT procedure are in the results section. TISSUE EXAM AP Routine 12/07/2019 12:07 Results for this PM CDT procedure are i n the results section. SURGICALLY OBTAINED Routine 12/07/2019 11:35 Resu lts for this CULTURE + GRAM STAIN AM CDT procedu re are in the results section. FUNGUS CULTURE + Routine 12/07/2019 11:35 Results for this SMEAR AM CDT procedure are i n the results section. ANAEROBIC CULTURE Routine 12/07/2019 11:35 Result s for this AM CDT procedure are i n the results section. AFB CULTURE + SMEAR Routine 12/07/2019 11:35 Resu lts for this (NON-SPUTUM) AM CDT procedure are i n the results section. SPIN/CONCENTRATION Routine 12/07/2019 11:35 Resul ts for this CHARGE AM CDT procedure are i n the results section. LAPAROSCOPY,CHOLECYS 12/07/2019 10:40 Cholecystitis TECTOMY AM CDT Special Needs REQ: 0800 CBC W/PLT COUNT & AUTO Routine 12/07/2019 5:05 AM CDT Results for this DIFFERENTIAL procedure are i n the results section . PROTHROMBIN TIME/INR STAT 12/07/2019 5:05 AM CDT Results for this procedure are i n the results section . PT/APTT STAT 12/07/2019 5:05 AM CDT Resu lts for this procedure are i n the results section . COMPREHENSIVE METABOLIC Routine 12/07/2019 5:05 AM CDT Results for this PANEL procedure are i n the results section . PHOSPHORUS Routine 12/07/2019 5:05 AM CDT Resu lts for this procedure are i n the results section . MAGNESIUM Routine 12/07/2019 5:05 AM CDT Resu lts for this procedure are i n the results section . CBC W/PLT COUNT & AUTO Routine 12/07/2019 5:05 AM CDT Results for this DIFFERENTIAL procedure are i n the results section . TYPE AND SCREEN, AUTOMATED STAT 12/07/2019 5:04 AM CDT Results for this procedure are i n the results section . US ABDOMEN LIMITED Routine 12/06/2019 11:17 PM CDT Results for this procedure are i n the results section . 2D ECHO W/ DOPPLER STAT 12/06/2019 3:53 PM CDT Results for this (CW/PW/COLOR) procedure are in the results section . XR CHEST 1 VIEW Routine 12/06/2019 11:29 AM CDT R esults for this PORTABLE/BEDSIDE procedure a re in the results section . CT ABDOMEN/PELVIS WITH IV Routine 12/06/2019 4:24 AM CDT Results for this CONTRAST procedure are i n the results section . CBC W/PLT COUNT & AUTO Routine 12/06/2019 1:55 AM CDT Results for this DIFFERENTIAL procedure are i n the results section . CBC W/PLT COUNT & AUTO Routine 12/06/2019 1:55 AM CDT Results for this DIFFERENTIAL procedure are i n the results section . COMPREHENSIVE METABOLIC Routine 12/06/2019 1:54 AM CDT Results for this PANEL procedure are i n the results section . PHOSPHORUS Routine 12/06/2019 1:54 AM CDT Resu lts for this procedure are i n the results section . MAGNESIUM Routine 12/06/2019 1:54 AM CDT Resu lts for this procedure are i n the results section . RHYTHM STRIP - SCAN 12/05/2019 12:20 PM CDT CBC W/PLT COUNT & AUTO Routine 12/05/2019 2:27 AM CDT Results for this DIFFERENTIAL procedure are i n the results section . COMPREHENSIVE METABOLIC Routine 12/05/2019 2:27 AM CDT Results for this PANEL procedure are i n the results section . PHOSPHORUS Routine 12/05/2019 2:27 AM CDT Resu lts for this procedure are i n the results section . MAGNESIUM Routine 12/05/2019 2:27 AM CDT Resu lts for this procedure are i n the results section . CBC W/PLT COUNT & AUTO Routine 12/05/2019 2:27 AM CDT Results for this DIFFERENTIAL procedure are i n the results section . ECG 12-LEAD Routine 12/04/2019 5:36 AM CDT Resu lts for this procedure are i n the results section . CBC W/PLT COUNT & AUTO Routine 12/04/2019 3:57 AM CDT Results for this DIFFERENTIAL procedure are i n the results section . BASIC METABOLIC PANEL (7) Routine 12/04/2019 3:57 AM CDT Results for this procedure are i n the results section . MAGNESIUM Routine 12/04/2019 3:57 AM CDT Resu lts for this procedure are i n the results section . PHOSPHORUS Routine 12/04/2019 3:57 AM CDT Resu lts for this procedure are i n the results section . CBC W/PLT COUNT & AUTO Routine 12/04/2019 3:57 AM CDT Results for this DIFFERENTIAL procedure are i n the results section . BASIC METABOLIC PANEL (7) Routine 12/03/2019 6:22 PM CDT Results for this procedure are i n the results section . MAGNESIUM Routine 12/03/2019 6:22 PM CDT Resu lts for this procedure are i n the results section . PHOSPHORUS Routine 12/03/2019 6:22 PM CDT Resu lts for this procedure are i n the results section . HEPATIC FUNCTION PANEL Routine 12/03/2019 6:22 PM CDT Results for this procedure are i n the results section . TRANSFUSION SERVICE REPORT - 12/03/2019 6:02 PM CDT SCAN CBC W/PLT COUNT & AUTO Routine 12/03/2019 4:33 AM CDT Results for this DIFFERENTIAL procedure are i n the results section . TRIGLYCERIDES Routine 12/03/2019 4:33 AM CDT Res ults for this procedure are i n the results section . BASIC METABOLIC PANEL (7) Routine 12/03/2019 4:33 AM CDT Results for this procedure are i n the results section . MAGNESIUM Routine 12/03/2019 4:33 AM CDT Resu lts for this procedure are i n the results section . PHOSPHORUS Routine 12/03/2019 4:33 AM CDT Resu lts for this procedure are i n the results section . FERRITIN Routine 12/03/2019 4:33 AM CDT Resu lts for this procedure are i n the results section . IRON, TIBC, % SAT. (WITHOUT Routine 12/03/2019 4:33 AM CDT Results for this FERRITIN) procedure are i n the results section . CBC W/PLT COUNT & AUTO Routine 12/03/2019 4:33 AM CDT Results for this DIFFERENTIAL procedure are i n the results section . LIPID PANEL Routine 12/02/2019 4:40 PM CDT Resu lts for this procedure are i n the results section . BASIC METABOLIC PANEL (7) Routine 12/02/2019 4:40 PM CDT Results for this procedure are i n the results section . MAGNESIUM Routine 12/02/2019 4:40 PM CDT Resu lts for this procedure are i n the results section . PHOSPHORUS Routine 12/02/2019 4:40 PM CDT Resu lts for this procedure are i n the results section . PHOSPHORUS Routine 12/02/2019 1:17 PM CDT Resu lts for this procedure are i n the results section . MAGNESIUM Routine 12/02/2019 1:17 PM CDT Resu lts for this procedure are i n the results section . POTASSIUM Routine 12/02/2019 1:17 PM CDT Resu lts for this procedure are i n the results section . VITAMIN B12 AND FOLATE Routine 12/02/2019 1:17 PM CDT Results for this procedure are i n the results section . TYPE AND SCREEN, AUTOMATED STAT 12/02/2019 4:03 AM CDT Results for this procedure are i n the results section . T4, FREE Routine 12/02/2019 3:56 AM CDT Resu lts for this procedure are i n the results section . TSH Routine 12/02/2019 3:56 AM CDT Resu lts for this procedure are i n the results section . CBC W/PLT COUNT & AUTO Routine 12/02/2019 3:55 AM CDT Results for this DIFFERENTIAL procedure are i n the results section . PHOSPHORUS Routine 12/02/2019 3:55 AM CDT Resu lts for this procedure are i n the results section . MAGNESIUM Routine 12/02/2019 3:55 AM CDT Resu lts for this procedure are i n the results section . BASIC METABOLIC PANEL (7) Routine 12/02/2019 3:55 AM CDT Results for this procedure are i n the results section . CBC W/PLT COUNT & AUTO Routine 12/02/2019 3:55 AM CDT Results for this DIFFERENTIAL procedure are i n the results section . ETHANOL Routine 12/02/2019 3:55 AM CDT Resu lts for this procedure are i n the results section . ECG 12-LEAD Routine 12/02/2019 2:21 AM CDT Resu lts for this procedure are i n the results section . ECG 12-LEAD Routine 12/02/2019 2:21 AM CDT Procedure Note - Interface, External Ris In - 12/02/2019 2:29 AM CDT Ventricular Rate 121 BPM Atrial Rate 121 BPM P-R Interval 180 ms QRS Duration 74 ms Q-T Interval 324 ms QTC Calculation(Bazett) 460 ms P [place] 80 degrees R [place] -16 degrees T [place] 39 degrees Sinus tachycardia with Jasmyn ture atrial complexes Otherwise normal ECG No previous ECGs available SARS-COV2/RT-PCR ([facility] & REF Routine 12/02/2019 2:04 AM CDT Results for this LABS) procedure are i n the results section . DRUG SCREEN, URINE, Routine 12/02/2019 1:28 AM CDT COMPREHENSIVE AMYLASE Add-On 12/02/2019 1:00 AM CDT Resu lts for this procedure are i n the results section . PHOSPHORUS Add-On 12/02/2019 1:00 AM CDT Resu lts for this procedure are i n the results section . MAGNESIUM Routine 12/02/2019 1:00 AM CDT Resu lts for this procedure are i n the results section . PROTHROMBIN TIME/INR Routine 12/02/2019 1:00 AM CDT Results for this procedure are i n the results section . LIPASE Routine 12/02/2019 1:00 AM CDT Resu lts for this procedure are i n the results section . BASIC METABOLIC PANEL (7) Routine 12/02/2019 1:00 AM CDT Results for this procedure are i n the results section . HEPATIC FUNCTION PANEL Routine 12/02/2019 1:00 AM CDT Results for this procedure are i n the results section . CBC W/PLT COUNT & AUTO Routine 12/02/2019 12:59 AM CDT Results for this DIFFERENTIAL procedure are i n the results section . CBC WITH PLATELET COUNT + Routine 12/02/2019 12:59 AM CDT Results for this MANUAL DIFF procedure are i n the results section . CBC W/PLT COUNT & AUTO Routine 12/02/2019 12:59 AM CDT Results for this DIFFERENTIAL procedure are i n the results section . CBC W/PLT+MANUAL DIFF Routine 12/02/2019 12:59 AM CDT Results for this procedure are i n the results section . after 03/06/2019 Results RHYTHM STRIP - SCAN (12/11/2019 12:00 PM CDT)Only the most recent of3 results within the time period is included. Narrative Performed At This result has an attachment that is no t available. TRANSFUSION SERVICE REPORT - SCAN (12/08/2019 6:01 PM CDT)Only the most recent of2 resultswithin the time period is included. Narrative Performed At This result has an attachment that is no t available. CBC with platelet count + automated diff (12/08/2019 5:21 AM CDT)Only the most recent of8 resultswithin the time period is included. Pathologist Sig nature WBC 8.7 3.5 - 10.5 [facility] K/L [facility] RBC 3.14 (L) 4.63 - 6.08 [facility] M/L [facility] Hemoglobin 10.8 (L) 13.7 - 17.5 [facility] GM/DL [facility] Hematocrit 34.1 (L) 40.1 - 51.0 % [facility] MCV 108.6 (H) 79.0 - 92.2 fL [facility] MCH 34.4 (H) 25.7 - 32.2 pg [facility] MCHC 31.7 (L) 32.3 - 36.5 [facility] RDW 13.2 11.6 - 14.4 % [facility] Platelets 150 150 - 450 K/CU [facility] MPV 12.4 9.4 - 12.4 fL [facility] nRBC 0 0 - 0 /100 WBC [facility] % Neutros 74 % [facility] % Lymphs 15 % [facility] % Monos 10 % [facility] % Eos 0 % [facility] % Baso 0 % [facility] # Neutros 6.38 (H) 1.78 - 5.38 [facility] # Lymphs 1.33 1.32 - 3.57 [facility] # Monos 0.89 (H) 0.30 - 0.82 [facility] # Eos 0.00 (L) 0.04 - 0.54 [facility] # Baso 0.02 0.01 - 0.08 [facility] Immature 1 0 - 1 % [facility] Granulocytes-Relativ [facility] e [place] Specimen Blood Performing Organization Address City/[facility]/Zipcode Phone Number [facility] [address] [place] [address] CENTER Hepatic function panel (12/08/2019 5:21 AM CDT)Only the most recent of3 results within the time period is included. Pathologist Sig nature Protein, Total 7.0 6.0 - 8.3 gm/dL [facility] Albumin 3.2 (L) 3.5 - 5.0 g/dL [facility] Total Bilirubin 0.6 0.2 - 1.2 mg/dL [facility] Bilirubin, Direct 0.5 0.1 - 0.5 mg/dL [facility] Alkaline Phosphatase 128 40 - 150 U/L [facility] AST 124 (H) 5 - 34 U/L [facility] ALT 56 (H) 6 - 55 U/L [facility] Specimen Blood Narrative Performed At Telephone Messenger FORD Roger LANEY Samuel [facility] Performing Organization Address City/State/Zipcode Phone Number [facility] [address] [place] [address] CENTER Basic Metabolic Panel (12/08/2019 5:21 AM CDT)Only the most recent of7 results within the time period is included. Sodium 137 136 - 145 meq/L [facility] Potassium 4.8 3.5 - 5.1 meq/L [facility] Chloride 106 98 - 107 meq/L [facility] CO2 16 (L) 22 - 29 meq/L [facility] BUN 8 7 - 21 mg/dL [facility] Creatinine 0.91 0.57 - 1.25 [facility] mg/dL [facility] Glucose 105 70 - 105 mg/dL [facility] Calcium 8.9 8.4 - 10.2 [facility] mg/dL [facility] EGFR 86Comment: ESTIMATED mL/min/1.73 sq [facility] GFR IS NOT m [facility] ACCURATE CENTER CREATININE CLEARANCE IN PREDICTING GLOMERULAR FILTRATION RATE. ESTIMATED GFR IS NOT APPLICABLE FOR DIALYSIS PATIENTS. Specimen Blood Narrative Performed At Telephone Messenger FORD - LANEY Baker [facility] Performing Organization Address City/State/Zipcode Phone Number [facility] [address] [place] [address] CENTER Tissue Exam (12/07/2019 12:07 PM CDT) Case Report Surgical Pathology Report Case: [id number] CH I [facility] Authorizing Provider: James Andrade MD Collected: 12/07/2019 12:07 PM [facility] Ordering Location: [address] Received: 12/08/2019 10:06 AM MEDICAL CENTER Service Pathologist: Syl Rg MD Specimen: Gallbladder DIAGNOSIS A. GALLBLADDER, LAPAROSCOPIC CHOLECYSTECTOMY: [facility] Electronically - CHRONIC CHOLECYSTITIS [facility] sig divina by Ifrah, - CHOLELITHIASIS [facility] Syl Wong MD - CYSTIC DUCT MARGIN, UNREMARKABLE on 12/10/2019 at - NEGATIVE FOR DYSPLASIA OR MALIGNANCY 1:23 PM Signing Pathologist Direct Phone Line: [phone] CPT Code(s) 75651 [facility] CLINICAL HISTORY Cholecystitis. [facility] SPECIMEN SOURCE Gallbladder [facility] GROSS DESCRIPTION Received in formalin [facility] labeled with the [facility] patient's name, MEDICAL CENTER accession number and "gallbladder" is an 8.7 x 3.0 x 1.3 cm intact gallbladder with a 0.2 cm in length x 0.2 cm in diameter attached cystic duct. The serosa is yellow-pink, smooth and hyperemic. The specimen is opened to reveal approximately 3 mL of yellow bile and a 3.0 x 1.2 x 0.5 cm aggregate of black bosselated calculi. There are no calculi lodged within the cystic duct. The mucosa is mcghee-yellow, focally trabeculated and velvety. The wall measures up to 0.4 cm thick. Perinatal Specialist sections are submitted in A1-A2,with the inked cystic duct margin in A1. PA/ew MICROSCOPIC Performed. [facility] Specimen Tissue - Gallbladder structure (body str ucture) Performing Organization Address City/[facility] Cent[facility]ode Phone Number [address] [address] CENTER AFB culture + smear (non-sputum) (12/07/2019 11:35 AM CDT) Pathologist Sig nature Result No acid-fast bacilli [facility] isolated in 42 days [facility] AFB Smear No acid fast bacilli [facility] seen [facility] Specimen Body Fluid - Gallbladder structure (body structure) Performing Organization Address [facility] Cent[facility]otn Phone Number [address] [address] CENTER Anaerobic culture (12/07/2019 11:35 AM CDT) Pathologist Sig nature Result 4+ Clostridium [facility] perfringens () [facility] Specimen Body Fluid - Gallbladder structure (body structure) Performing Organization Address [facility] Phone Number [address] [address] CENTER Surgically obtained culture + gram stain (12/07/2019 11:35 AM CDT) Result <1+ Citrobacter [facility] freundii () [facility] Result 2+ [address] [facility] faecalis () [facility] Result 2+ Enterococcus avium [facility] () [facility] Gram Stain Result No WBCs [facility] Gram Stain Result <1+ gram positive [facility] rods [facility] Specimen Body Fluid - Gallbladder structure (body structure) Organism Antibiotic Method Susceptibility Citrobacter freundii Amikacin <=2: Suscep tible Citrobacter freundii Aztreonam <=1: Suscep tible Citrobacter freundii Cefepime <=1: Suscep tible Citrobacter freundii Cefoxitin >=64: Resis tant Citrobacter freundii Ceftazidime <=1: Suscep tible Citrobacter freundii Ceftriaxone <=1: Suscep tible Citrobacter freundii Ertapenem <=0.5: Susc eptible Citrobacter freundii Gentamicin <=1: Suscep tible Citrobacter freundii Levofloxacin 0.5: Suscep tible Citrobacter freundii Meropenem <=0.25: Iliana ceptible Citrobacter freundii Piperacillin + Tazobactam < =4: Susceptible Citrobacter freundii Tetracycline <=1: Suscep tible Citrobacter freundii Tobramycin <=1: Suscep tible Citrobacter freundii Trimethoprim + Sulfamethoxazole <=20: Susceptible Enterococcus faecalis Ampicillin <=2: Susce ptible Enterococcus faecalis Linezolid 2: Suscept ible Enterococcus faecalis Vancomycin 1: Suscept ible Enterococcus avium Ampicillin 0.064: Suscep tible Enterococcus avium Linezolid 1.5: Suscepti ble Enterococcus avium Vancomycin 0.50: Suscept ible Performing Organization Address City/[facility] Centercode Phone Number [address] [address] CENTER Fungus culture + smear (12/07/2019 11:35 AM CDT) Pathologist Sig nature Result No fungus isolated [facility] in 28 days [facility] Fungus Smear No fungal elements [facility] seen [facility] Specimen Body Fluid - Gallbladder structure (body structure) Performing Organization Address City/[facility]/Zipcode Phone Number [address] [address] CENTER SPIN/CONCENTRATION CHARGE (12/07/2019 11:35 AM CDT) Pathologist Sig nature Concentration charged Done [facility] H [facility] Specimen Body Fluid - Gallbladder structure (body structure) Performing Organization Address City/[facility] Centercode Phone Number [address] [address] [place] PT/aPTT (12/07/2019 5:05 AM CDT) Pathologist [facility] nature Protime 13.1 11.9 - 14.2 seconds [facility] INR 1.02 <=5.90 [facility] PTT 34.5 22.5 - 36.0 seconds [facility] Specimen Blood Narrative Performed At Effective 09/11/2018: PT Reference Range [facility] Change New: 11.9-14.2 Previous: 11.7-14.7 RECOMMENDED COUMADIN/WARFARIN INR THERAPY RANGES STANDARD DOSE: 2.0-3.0 Includes: PROPHYLAXIS for venous thrombosis, systemic embolization; TREATMENT for venous thrombosis and/or pulmonary embolus. HIGH RISK: Target INR is 2.5-3.5 for patients wiht mechanical heart valves. Performing Organization Address City/State/Zipcode Phone Number [address] [address] [place] Prothrombin time/INR (12/07/2019 5:05 AM CDT)Only the most recent of2 results within the time period is included. Pathologist [facility] Protime 13.1 11.9 - 14.2 seconds [facility] INR 1.02 <=5.90 [facility] Specimen Blood Narrative Performed At Effective 09/11/2018: PT Reference Range [facility] Change New: 11.9-14.2 Previous: 11.7-14.7 RECOMMENDED COUMADIN/WARFARIN INR THERAPY RANGES STANDARD DOSE: 2.0-3.0 Includes: PROPHYLAXIS for venous thrombosis, systemic embolization; TREATMENT for venous thrombosis and/or pulmonary embolus. HIGH RISK: Target INR is 2.5-3.5 for patients wiht mechanical heart valves. Performing Organization Address City/State/Zipcode Phone Number [address] [phone] CENTER Phosphorus (12/07/2019 5:05 AM CDT)Only the most recent of10 resultswithin the time period is included. Pathologist Sig nature Phosphorus 4.9 (H) 2.3 - 4.7 mg/dL [facility] Specimen Blood Narrative Performed At Telephone Messenger ID - [facility] Performing Organization Address [facility] Phone Number [address] [address] [place] Magnesium (12/07/2019 5:05 AM CDT)Only the most recent of10 resultswithin the time period is included. Pathologist Sig nature Magnesium 1.4 (L) 1.6 - 2.6 mg/dL [facility] Specimen Blood Narrative Performed At Telephone Messenger ID - [facility] Performing Organization Address [facility] Phone Number [address] [address] [place] Comprehensive metabolic panel (12/07/2019 5:05 AM CDT)Only the most recent of3 resultswithin the time period is included. Protein, Total 6.1 6.0 - 8.3 [facility] gm/dL [facility] Albumin 2.8 (L) 3.5 - 5.0 [facility] g/dL [facility] Alkaline 118 40 - 150 U/L [facility] Phosphatase [facility] Total Bilirubin 0.5 0.2 - 1.2 [facility] mg/dL [facility] Sodium 137 136 - 145 [facility] meq/L [facility] Potassium 3.9 3.5 - 5.1 [facility] meq/L [facility] Chloride 105 98 - 107 [facility] meq/L [facility] CO2 26 22 - 29 meq/L [facility] BUN 4 (L) 7 - 21 mg/dL [facility] Creatinine 0.79 0.57 - 1.25 [facility] mg/dL [facility] Glucose 93 70 - 105 [facility] mg/dL [facility] Calcium 8.5 8.4 - 10.2 [facility] mg/dL [facility] AST 80 (H) 5 - 34 U/L [facility] ALT 39 6 - 55 U/L [facility] EGFR 101Comment: mL/min/1.73 [facility] ESTIMATED GFR IS sq [facility] NOT [facility]URATE [facility] CREATININE CLEARANCE IN PREDICTING GLOMERULAR FILTRATION RATE. ESTIMATED GFR IS NOT APPLICABLE FOR DIALYSIS PATIENTS. Specimen Blood Narrative Performed At Telephone Messenger ID - LANEY Baker [facility] Performing Organization Address City/State/Zipcode Phone Number [address] [phone] CENTER Type and screen, automated (12/07/2019 5:04 AM CDT)Only the most recent of2 resultswithin the time period is included. Pathologist Sig nature ABO/RH AUTOMATED A NEGATIVE [facility] Ab Scrn NEGATIVE [facility] Specimen Blood Performing Organization Address City/State/Zipcode Phone Number [facility] [address] [place], [place] [phone] US abdomen limited (12/06/2019 11:17 PM CDT) Specimen Narrative Performed At FINAL REPORT judo TECHNIQUE: [facility]. INDICATION: gallstones, concern for acut e [place]. COMPARISON: None. FINDINGS: MIDLINE VASCULATURE: The visualized infe rior vena cava is patent. Portal vein is patent. The maximum visua lized aortic diameter is 2.1 cm. LIVER: Smooth liver contour. No focal le sions. The main portal vein measures 1.2 cm. BILIARY: Gallbladder: Several gallstones within t he gallbladder. No gallbladder wall thickening, pericholecy stic fluid, or distention. Positive sonographic Maya sign. Common bile duct measures 0.4 cm, within normal limits. No intrahepatic biliary ductal dilatation. PANCREAS: Incompletely visualized due to overlying bowel gas. PERITONEUM: No free fluid. RIGHT KIDNEY: Normal in size. No hydrone phrosis. No sonographically evident solid mass lesion. IMPRESSION: Cholelithiasis without sonographic evide nce of inflammatory change. However, sonographic Maya sign was rep orted as positive. Consider further evaluation with HIDA scan. Signed: Esdras Mir MD Report Verified Date/Time: 12/07/2019 00:44:30 Procedure Note Interface, External Ris In - 12/07/2019 12:46 AM CDT FINAL REPORT TECHNIQUE: [facility]. INDICATION: gallstones, concern for acut e [place]. COMPARISON: None. FINDINGS: MIDLINE VASCULATURE: The visualized infe rior vena cava is patent. Portal vein is patent. The maximum visua lized aortic diameter is 2.1 cm. LIVER: Smooth liver contour. No focal le sions. The main portal vein measures 1.2 cm. BILIARY: Gallbladder: Several gallstones within t he gallbladder. No gallbladder wall thickening, pericholecy stic fluid, or distention. Positive sonographic Maya sign. Common bile duct measures 0.4 cm, within normal limits. No intrahepatic biliary ductal dilatation. PANCREAS: Incompletely visualized due to overlying bowel gas. PERITONEUM: No free fluid. RIGHT KIDNEY: Normal in size. No hydrone phrosis. No sonographically evident solid mass lesion. IMPRESSION: Cholelithiasis without sonographic evide nce of inflammatory change. However, sonographic Maya sign was rep orted as positive. Consider further evaluation with HIDA scan. Signed: Esdras Mir MD Report Verified Date/Time: 12/07/2019 0 0:44:30 Performing Organization Address City/State/Zipcode Phone Number [facility] 2D Echo W/Doppler(CW/PW/Color) (12/06/2019 3:53 PM CDT) Pathologist Sig nature Ejection Fraction [facility] [place] 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 Clinical History ALCOHOL ABUSE;HTN. Contrast Medium: Definity. Height: 74 inches Weight: 106.59 kg (235 lbs) BSA: 2.33 m^2 BMI: 30.17 kg/m^2 HR: 103 bpm BP: 124/80 mmHg Summary Essentially normal exam. The left ventricle is chamber size (by PSLAX dimension) is normal (male - LVIDd 4.2-5.8cm) . Mild concentric LV hypertrophy. All of the LV segments contract normall y . Global LV systolic function normal . Estimated LVEF by qualitative assessment is normal (60%) . LV endocardium is adequately visualized with IV ultrasound enhancing agent. LV diastolic function is indeterminate. No significant valve disease detected. The estimated RA pressure by IVC dynamics 5-10mmHg . Estimated peak systolic PA pressure is 30-35 mmHg (normal range) . Signature Findings Rhythm/BP Regular sinus rhythm during the exam. Left Ventricle The left ventricle is chamber size (by PSLAX dimension) is normal (male - LVIDd 4.2-5.8cm) . Mild concentric LV hypertrophy. All of the LV segments contract normally . Global LV systolic function normal . Estimated LVEF by qualitative assessment is normal (60% ) . LV endocardium is adequately visualized with IV ultrasound enhancing agent. LV diastolic function is indeterminate. Left Atrium LA size is normal (16-34 ml/m2) . Right Ventricle The right ventricular chamber size and systolic function are within normal limits. Right Atrium RA cavity size is normal . Aortic Valve Mild AoV cusp calcification. AoV cusp mobility is normal . Mitral Valve Mild MV leaflet thickening. Tricuspid Valve A trace of tricuspid regurgitation. Estimated peak systolic PA pressure is 30-35 mmHg (normal range) . Pulmonic Valve PV is not well visualized; function appears normal by Doppler visualized. Aorta Aortic root size (SInus of Valsalva diameter) is normal . Proximal ascending aorta size is normal . Pericardium No significant pericardial effusion is visualized. IVC/SVC/PA/PV/Pleural The estimated RA pressure by IVC dynamics 5-10mmHg . Chambers/Structures Left Atrium LA Volume: 55.13 ml LA Area: 19.55 cm^2 LA Vol. Index: 24 ml/m^2 Left Ventricle LVIDd: 4.49 cm LV Septum Diastolic: 1.16 cm LV PW Diastolic: 1.22 cm LVOT Diameter: 2.09 cm Right Ventricle TAPSE: 1.8 3 cm Aorta Ao Root S of Emely.: 3.33 cm Ascending Aorta: 3.52 cm Doppler/Quantitative Measurements Mitral Valve MV Keaton. Peak: Tissue Doppler E' Septal Velocity: 0.09 m/s E' Lateral Velocity: 0.1 m/s Aortic Valve Peak Velocity: 1.06 m/s Mean Velocity: 0.79 m/s Peak Gradient: 4.49 mmHg Mean Gradient: 2.77 mmHg AV Area (continuity): 3.79 cm^2 AV VTI: 20.15 cm AV DVI: 1.11 LVOT Peak Velocity: 1.02 m/s Peak Gradient: 4.19 mmHg Mean Velocity: 0.82 m/s Mean Gradient: 2.83 mmHg LVOT Diameter: 2.09 cm LVOT VTI: 22.28 cm LVOT Area: 3.43 cm^2 LVOT SV:76.4 ml LVOT CO: 7.87 l/min LVOT CI: 3.38 l/min/m^2 Tricuspid Valve TR Velocity: 2.44 m/s TR Gradient: 23.81 mmHg Procedure Note Interface, External Ris In - 12/07/2019 11:47 AM CDT Transthoracic Echocardiography Report (TTE) Demographics Patient Name JOSE MONTANA Date of Study 12/06/2019 Gender Male Visit Number [id number] Race Unknown Room [facility] 73 Number Date of 1960 Ying angela Physician Yenifer Barragan Age 59 year(s) Sonograp her 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 Clinical History ALCOHOL ABUSE;HTN. Contrast Medium: Definity. Height: 74 inches Weight: 106.59 kg (235 lbs) BSA: 2.33 m^2 BMI: 30.17 kg/m^2 HR: 103 bpm BP: 124/80 mmHg Summary Essentially normal exam. The left ventricle is chamber size (by PSLAX dimension) is normal (male - LVIDd 4.2-5.8cm) . Mild concentric LV hypertrophy. All of the LV segments contract normall y . Global LV systolic function normal . Estimated LVEF by qualitative assessmen t is normal (60%) . LV endocardium is adequately visualized with IV ultrasound enhancing agent. LV diastolic function is indeterminate. No significant valve disease detected. The estimated RA pressure by IVC dynami cs 5-10mmHg . Estimated peak systolic PA pressure is 30-35 mmHg (normal range) . Signature Findings Rhythm/BP Regular sinus rh ythm during the exam. Left Ventricle The left ventric le is chamber size (by PSLAX dimension) is no rmal (male - LVIDd 4.2-5.8cm) . Mild concentric LV hypertrophy. All of the LV se gments contract normally . Global LV systol ic function normal . Estimated LVEF b y qualitative assessment is normal (60%) . LV endocardium i s adequately visualized with IV ultrasound enhan cing agent. LV diastolic fun ction is indeterminate. Left Atrium LA size is gerald l (16-34 ml/m2) . Right Ventricle The right ventri cular chamber size and systolic function are wit hin normal limits. Right Atrium RA cavity size i s normal . Aortic Valve Mild AoV cusp ca lcification. AoV cusp mobilit y is normal . Mitral Valve Mild MV leaflet thickening. Tricuspid Valve A trace of tricu spid regurgitation. Estimated peak s ystolic PA pressure is 30-35 mmHg (normal range) . Pulmonic Valve PV is not well v isualized; function appears normal by Doppler visua lized. Aorta Aortic root size (SInus of Valsalva diameter) is normal . Proxima l ascending aorta size is normal . Pericardium No significant p ericardial effusion is visualized. IVC/SVC/PA/PV/Pleural The estimated RA pressure by IVC dynamics 5-10mmHg . Chambers/Structures Left Atrium LA Volume: 55.13 ml LA Area: 19.55 cm^2 LA Vol. Index: 24 ml/m^2 Left Ventricle LVIDd: 4.49 cm LV Septum Diastolic: 1.16 cm LV PW Diastolic: 1.22 cm LVOT Diameter: 2.09 cm Right Ventricle TAPSE: 1.83 cm Aorta Ao Root S of Emely.: 3.33 cm Ascending Aorta: 3.52 cm Doppler/Quantitative Measurements Mitral Valve MV Keaton. Peak: Tissue Doppler E' Septal Velocity: 0.09 m/s E' Lateral Velocity: 0.1 m/s Aortic Valve Peak Velocity: 1.06 m/s Mean Velocity: 0.79 m/s Peak Gradient: 4.49 mmHg Mean Gradient: 2.77 mmHg AV Area (continuity): 3.79 cm^2 AV VTI: 20.15 cm AV DVI: 1.11 LVOT Peak Velocity: 1.02 m/s Pea k Gradient: 4.19 mmHg Mean Velocity: 0.82 m/s Radha n Gradient: 2.83 mmHg LVOT Diameter: 2.09 cm LVO T VTI: 22.28 cm LVOT Area: 3.43 cm^2 LVO T SV:76.4 ml LVOT CO: 7.87 l/min LVO T CI: 3.38 l/min/m^2 Tricuspid Valve TR Velocity: 2.44 m/s TR Gradient: 23.81 mmHg Performing Organization Address [facility] [place] [place] Phone Number [facility] MKCKESSON CPACS XR chest 1 view portable / bedside (12/06/2019 11:29 AM CDT) Specimen Narrative Performed At FINAL REPORT [facility] History: Preoperative evaluation, cholec ystitis Comparison: No comparison chest imaging Findings: The lungs are clear. No pleura l effusions or pneumothorax. The heart shadow is normal in size. The thoracic aorta is mildly tortuous. Prior internal fixation of an old healed fracture of the left clavicle and several old healed left lat eral rib fractures. IMPRESSION: No evidence of acute cardiop ulmonary disease. Signed: Andrea Hager MD Report Verified Date/Time: 12/06/2019 12:00:14 Reading Location: [address] [facility] Reading Room Procedure Note Interface, External Ris In - 12/06/2019 12:02 PM CDT FINAL REPORT History: Preoperative evaluation, cholec ystitis Comparison: No comparison chest imaging Findings: The lungs are clear. No pleura l effusions or pneumothorax. The heart shadow is normal in size. The thoracic aorta is mildly tortuous. Prior internal fixation of an old healed fracture of the left clavicle and several old healed left lat eral rib fractures. IMPRESSION: No evidence of acute cardiop ulmonary disease. Signed: Andrea Hager MD Report Verified Date/Time: 12/06/2019 1 2:00:14 Reading Location: [facility] [address] [place] Reading Room Performing Organization Address [facility] [place], [place] Phone Number [facility] CT abdomen/pelvis with IV contrast (12/06/2019 4:24 AM CDT) Specimen Narrative Performed At FINAL REPORT [employer] [facility] CT, ABDOMEN \\T\\ PELVIS, WITH IV CONTRAST INDICATION: Epigastric pain COMPARISON: None TECHNIQUE: Post contrast abdomen and pelvis CT. C oronal and sagittal reformatted images obtained. DOSE REDUCTION: Dose modulation, iterati ve reconstruction, and/or weight-based adjustment of the mA/kV was utilized to reduce the radiation dose to as low as reasonably a chievable. FINDINGS: Lower thorax: Normal bilateral right low er lobe dependent atelectasis. No pleural effusion. The he art is normal in size. No pericardial effusion. Coronary artery ca lcifications. Liver: Hypodensity of the hepatic parenc hyma may be related to timing of contrast versus hepatic steatosis. No discrete hepatic lesion. Gallbladder and biliary tree: Cholelithi asis. There is pericholecystic inflammatory changes, wi th wall thickening in the gallbladder lumen as well as the intra a nd extrahepatic bile ducts likely related to instrumentation of the ampulla, correlate clinically. Mild prominence of the commo n bile duct measuring up to 7 mm. Pancreas: No acute findings. Spleen: No acute findings Adrenal Glands: No acute findings. Kidneys and ureters: No hydronephrosis o r nephrolithiasis. Bladder and reproductive organs: Unremar kable. Stomach and Duodenum: No significant fin dings. Small and large intestine: Diverticulosi s of the large bowel without evidence of acute diverticulitis. The sm all large bowel are normal in caliber. No abnormal bowel wall thickeni ng. Appendix: Normal. Major vascular structures: Normal aortic caliber. Peritoneum and retroperitoneum: No free air, fluid or adenopathy. Skeleton: Post surgical changes of an OR IF of the left lateral chest wall with multiple remote rib fracture d eformities. Additional findings: None. IMPRESSION: Cholelithiasis with pericholecystic infl ammatory changes, possibly representing acute cholecystitis. Recomm end further evaluation with right upper quadrant ultrasound versus n [facility] medicine scan. Mild biliary ductal dilatation. Correlat e with LFTs and consider further evaluation with MRCP/ERCP. Hypodensity of the hepatic parenchyma ma y be related to timing of contrast versus hepatic steatosis. Signed: Simon Lal MD Report Verified Date/Time: 12/06/2019 05:11:12 Procedure Note Interface, External Ris In - 12/06/2019 5:14 AM CDT FINAL REPORT CT, ABDOMEN \\T\\ PELVIS, WITH IV CONTRAST INDICATION: Epigastric pain COMPARISON: None TECHNIQUE: Post contrast abdomen and pelvis CT. Co afshin and sagittal reformatted images obtained. DOSE REDUCTION: Dose modulation, iterati ve reconstruction, and/or weight-based adjustment of the mA/kV was utilized to reduce the radiation dose to as low as reasonably a chievable. FINDINGS: Lower thorax: Normal bilateral right low er lobe dependent atelectasis. No pleural effusion. The he art is normal in size. No pericardial effusion. Coronary artery ca lcifications. Liver: Hypodensity of the hepatic parenc hyma may be related to timing of contrast versus hepatic steatosis. No discrete hepatic lesion. Gallbladder and biliary tree: Cholelithi asis. There is pericholecystic inflammatory changes, wi th wall thickening in the gallbladder lumen as well as the intra a nd extrahepatic bile ducts likely related to instrumentation of the ampulla, correlate clinically. Mild prominence of the commo n bile duct measuring up to 7 mm. Pancreas: No acute findings. Spleen: No acute findings Adrenal Glands: No acute findings. Kidneys and ureters: No hydronephrosis o r nephrolithiasis. Bladder and reproductive organs: Unremar kable. Stomach and Duodenum: No significant fin dings. Small and large intestine: Diverticulosi s of the large bowel without evidence of acute diverticulitis. The sm all large bowel are normal in caliber. No abnormal bowel wall thickeni ng. Appendix: Normal. Major vascular structures: Normal aortic caliber. Peritoneum and retroperitoneum: No free air, fluid or adenopathy. Skeleton: Post surgical changes of an OR IF of the left lateral chest wall with multiple remote rib fracture d eformities. Additional findings: None. IMPRESSION: Cholelithiasis with pericholecystic infl ammatory changes, possibly representing acute cholecystitis. Recomm end further evaluation with right upper quadrant ultrasound versus n [facility] medicine scan. Mild biliary ductal dilatation. Correlat e with LFTs and consider further evaluation with MRCP/ERCP. Hypodensity of the hepatic parenchyma ma y be related to timing of contrast versus hepatic steatosis. Signed: Simon Lal MD Report Verified Date/Time: 12/06/2019 0 5:11:12 Performing Organization Address City/State/[facility] Phone Number GE RIS ECG 12 lead (12/04/2019 5:36 AM CDT)Only the most recent of2 resultswithin the time period is included. Specimen Narrative Performed At Ventricular Rate 118 BPM GE MUSE Atrial Rate 118 BPM P-R Interval 198 ms QRS Duration 72 ms Q-T Interval 330 ms QTC Calculation(Bazett) 462 ms P [place] 65 degrees R [place] -14 degrees T [place] 32 degrees Sinus tachycardia with Premature atrial complexes Otherwise normal ECG When compared with ECG of 02-DEC-2019 02 :21, No significant change was found Confirmed by MD ELIDA, CAMPBELL ([id number]) on 020 9:52:27 PM Procedure Note Interface, External Ris In - 12/05/2019 9:52 PM CDT Ventricular Rate 118 BPM Atrial Rate 118 BPM P-R Interval 198 ms QRS Duration 72 ms Q-T Interval 330 ms QTC Calculation(Bazett) 462 ms P [place] 65 degrees R [place] -14 degrees T [place] 32 degrees Sinus tachycardia with Premature atrial complexes Otherwise normal ECG When compared with ECG of 02-DEC-2019 02 :21, No significant change was found Confirmed by MD ELIDA, CAMPBELL ( [id number]) on 12/05/2019 9:52:27 PM Performing Organization Address City/[facility] [place], [place] Phone Number GE MUSE Iron, TIBC, % sat. (without ferritin) (12/03/2019 4:33 AM CDT) Pathologist Sig nature Iron 161.0 (H) 40.0 - 160.0 [facility] ug/dL [facility] TIBC 159 (L) 250 - 450 ug/dL [facility] Iron % Saturation 101 (H) 20 - 55 % [facility] Specimen Blood Narrative Performed At Telephone Messenger FORD Baker [facility] Performing Organization Address City/State/Zipcode Phone Number [facility] [address] [place] [address] CENTER Triglycerides (12/03/2019 4:33 AM CDT) Pathologist Sig nature Triglycerides 91 mg/dL [facility] DICAL [place] Specimen Blood Narrative Performed At [facility] Low Risk <150 Borderline Risk 150-199 High Risk 200-499 Very High Risk >=500 Telephone Messenger FORD - LANEY Baker Performing Organization Address City/[facility]/Zipcode Phone Number [address] [address] CENTER Ferritin (12/03/2019 4:33 AM CDT) Pathologist Sig nature Ferritin 4,080.63 (H) 5.00 - 275.00 [facility] ng/mL [facility] Specimen Blood Narrative Performed At Telephone Messenger ID - LANEY Baker [facility] Performing Organization Address [facility] Phone Number [address] [address] CENTER Lipid panel (12/02/2019 4:40 PM CDT) Pathologist Sig nature Triglycerides 135 mg/dL [facility] [place] Cholesterol 131 mg/dL [facility] [place] HDL 73 mg/dL [facility] LDL Calculated 31 mg/dL [facility] Specimen Blood Narrative Performed At Triglyceride Reference Range: [facility] Low Risk <150 Borderline 150-199 High Risk 200-499 Very High Risk >=500 Cholesterol Reference Range: Low Risk <200 Borderline 200-239 High Risk >240 HDL Cholesterol Reference Range: Low Risk >=60 High Risk <40 LDL Cholesterol Reference Range: Optimal <100 Near Optimal 100-129 Borderline 130-159 High 160-189 Very High >=190 Telephone Messenger ID - Performing Organization Address City/State/Zipcode Phone Number [address] [address] CENTER Vitamin B12 and Folate (12/02/2019 1:17 PM CDT) Pathologist Sig nature Vitamin B12 290 213 - 816 pg/mL [facility] Folate 15.90 >=7.00 ng/mL [facility] Specimen Blood Narrative Performed At Telephone Messenger ID - [facility] [place] Performing Organization Address City/[facility] Phone Number [address] [address] CENTER Potassium (12/02/2019 1:17 PM CDT) Pathologist Sig nature Potassium 3.7 3.5 - 5.1 meq/L [facility] Specimen Blood Narrative Performed At Telephone Messenger [facility] Check Serum Phosphorus level 4 hours after IV phosphorus replacement. Check Serum Potassium level 30 minutes after IV potassium replacement completed. Performing Organization Address [facility] [place] [place] Phone Number [address] [address] CENTER TSH (12/02/2019 3:56 AM CDT) Pathologist Sig [facility] TSH 2.475 0.350 - 4.940 uIU/mL [facility] Specimen Blood Narrative Performed At Telephone Messenger ID - [facility] Performing Organization Address [facility] [place], [place] Phone Number [address] [address] [place] T4, free (12/02/2019 3:56 AM CDT) Pathologist Sig nature Free T4 0.99 0.70 - 1.48 ng/dL [facility] Specimen Blood Narrative Performed At Telephone Messenger [facility] Performing Organization Address [facility] [place], [place] Phone Number [address] [address] CENTER Ethanol (12/02/2019 3:55 AM CDT) Pathologist Sig nature Ethanol Lvl <10 <=10 mg/dL [facility] Specimen Blood Narrative Performed At Telephone Messenger ID - DB [facility] Performing Organization Address City/State/Zipcode Phone Number [facility] [address] [place] [address] CENTER SARS-CoV2/RT-PCR (Symptomatic ONLY) (12/02/2019 2:04 AM CDT) SARS-COV2/RT-PCR Negative Not Detected, [facility] Negative, See [facility] external report CENTER for linked test SARS-COV-2 [facility] PERFORMING LAB [facility] EM[facility] Specimen Other - Nasopharyngeal wall structure (b laila structure) Narrative Performed At Negative results do not preclude SARS-CoV-2 [facility] infection and should not be used as the sole basis for patient management decisions. Negative results must be combined with clinical observations, patient history, and epidemiological information. A false negative result may occur if a specimen is improperly collected, transported or handled. The limit of detection for this assay is 250 copies/mL. This SARS CoV-2 test is a rapid, real-time RT-PCR test intended for the qualitative detection of nucleic acid from SARS-CoV-2 in a nasopharyngeal swab specimen collected from individuals suspected of COVID-19 by their healthcare provider. This test has not been Food and Drug Administration (FDA) cleared or approved and has been authorized by FDA under an Emergency Use Authorization (EUA). This EUA will be effective until the declaration that circumstances exist justifying the authorization of the emergency use of in vitro diagnostic tests for detection and/or diagnosis of COVID-19 is terminated under Section 564(b)(2) of the Act or the EUA is revoked under Section 564(g) of the Act. Fact Sheet for Healthcare Providers: https://www.[employer]IVVER/Documents/Xpert%20Xpre ss%20SARS%20CoV-2/Fact%20Sheets/302-4135%20SAR S-COV-2%20HEALTHCARE%20PROVIDERS%20FACT%20SHEE T.pdf Fact Sheet for Healthcare Patients: https://www.[employer]/Documents/Xpert%20Xpre ss%20SARS%20CoV-2/Fact%20Sheets/302-3801%20SAR S-COV-2%20PATIENT%20FACT%20SHEET.pdf Performing Laboratory: [address] [place] [address] Performing Organization Address [facility] Phone Number [address] [address] [place] Drug screen, urine, comprehensive (12/02/2019 1:28 AM CDT) Specimen Urine Narrative Performed At This result has an attachment that is no t available. Lipase (12/02/2019 1:00 AM CDT) Pathologist Sig nature Lipase 264 (H) 8 - 78 U/L [facility] Specimen Blood Narrative Performed At Telephone Messenger ID - [facility] Specimen slightly icteric Performing Organization Address [facility] [place], [place] Phone Number [address] [address] [place] Amylase (12/02/2019 1:00 AM CDT) Pathologist Sig nature Amylase 159 (H) 25 - 125 U/L [facility] Specimen Blood Narrative Performed At Telephone Messenger ID - [facility] Specimen slightly icteric Performing Organization Address [facility] [place] [place] Phone Number [address] [address] [place] CBC with platelet count + manual diff (12/02/2019 12:59 AM CDT) Pathologist Sig nature WBC 8.1 3.5 - 10.5 K/L [facility] RBC 3.62 (L) 4.63 - 6.08 M/L [facility] Hemoglobin 12.8 (L) 13.7 - 17.5 GM/DL [facility] Hematocrit 36.5 (L) 40.1 - 51.0 % [facility] MCV 100.8 (H) 79.0 - 92.2 fL [facility] MCH 35.4 (H) 25.7 - 32.2 pg [facility] MCHC 35.1 32.3 - 36.5 GM/DL [facility] RDW 12.1 11.6 - 14.4 % [facility] Platelets 117 (L) 150 - 450 K/CU MM [facility] MPV 12.4 9.4 - 12.4 fL [facility] nRBC 0 0 - 0 /100 WBC [facility] Specimen Blood Performing Organization Address City/State/[place]n Phone Number [facility] [address] [place] [address] CENTER after 03/06/2019 Insurance Payer Benefit Plan / Subscriber ID Effective Phone Address T ype Group Dates MEDICAID - MEDICAID [id number] 2018-Pres Medi caid MEDICAID [employer] ent Non-Co ntracte CARE d Advance Directives For more information, please contact: [phone] Code Status Date Activated Date Inactivated Comments Full Code 12/01/2019 11:46 PM 12/08/2019 7:58 PM This code status was determined by: Patient
--- OUTSIDE RECORDS SUMMARY | 2020-03-06 09:25 | XMS REPORT | Continuity of Care Document ---
:[address] [facility] t Address [address] [place] [address] Care Team Providers Name Role Phone Pcp Primary Care Physician Unavailable Singer CHU Attending Clinician Doctor Unassigned, Name Attending Clinician Unavailable YISSEL HILL Attending Clinician Unavailable Yissel Hill MD Attending Clinician Aria Barragan MD Attending Clinician Erick Montanez MD Attending Clinician Lilly VAZ Attending Clinician Rosa VAZ Attending Clinician YISSEL HILL Admitting Clinician Unavailable Payers Payer Name Policy Type Policy Effective Date Expiration Date Sour ce Number MEDICAID - [id number] 2018 [facility] MEDICAID MGD 00:00:00 - [facility] [id number] -Present Medicaid Non-Contracted Problems Condition Condition Condition Status Onset Resolution Last Treating Co mments Source Name Details Category Date Date Treatment Clinician Date Alcohol Alcohol Disease Active [facility] withdrawal withdrawal 11-30 [facility] - 00:00: Medical 00 Center Allergies, Adverse Reactions, Alerts This patient has no known allergies or adverse reactions. Social History Social Habit Start Date Stop Date Quantity Comments Source Sex Assigned At [facility] Tobacco use and 2019-12-08 2019-12-[address] [facility] exposure [facility]00 [facility]00 [facility] Alcohol intake 2019-12-08 2019-12-08 [facility]00 [facility] alcohol [facility] (finding) Alcohol Comment 2019-12-02 2019-12-02 1/[address] [facility] - [facility] day [facility] Smoking Status Start Date Stop Date Source Former smoker 2019-12-08 00:00:00 2019-12-08 00:00:[address] [facility] Medications Ordered Filled Start Stop Current Ordering Indication Dosage Frequency Signature Comments Components Source Medication Medication Date Date Medication? Clinician (SIG) Name Name furosemide 2019- Yes 1{tbl} QD Take [address] (LASIX) 20 8-11 tablet by [facility] - MG tablet 00:00: mouth Medical 00 daily. Alvis[facility] pantoprazol Yes 40mg QD Take [address] [facility] e 7-21 [facility] - (PROTONIX) 00:00: daily. Medic al 40 MG 00 Al[facility] tablet folic acid 2019-0 Yes 1000ug QD Take 1,[address] (FOLVITE) 1 7-20 mcg by [facility] - MG tablet 00:00: mouth Medical 00 daily. [place] NIFEdipine 2019-0 Yes 30mg QD Take [address] (ADALAT CC) 7-20 by mouth [facility] - 30 MG 24 hr 00:00: daily. Medi rajan tablet 00 [place] venlafaxine 0 Yes 37.5mg QD Take 37.[address] (EFFEXOR-XR 7-20 mg [facility] - ) 37.5 MG 00:00: mouth Medical 24 hr 00 daily. [facility] capsule lisinopriL 2019-0 Yes 30mg QD Take [address] (PRINIVIL,Z 6-22 by [facility] - ESTRIL) 30 00:00: daily. Medic al MG tablet 00 [facility] potassium 2020-0 Yes 20meq QD Take [address] chloride SA 6-22 mEq [facility] - (K-DUR,KLOR 00:00: mouth Medic al -CON) 20 00 daily. [facility] MEQ tablet Vital Signs Vital Name Observation Time Observation Value Comments Source Systolic blood 2019-12-08 11:40:00 129 mm[Hg] [facility] Diastolic blood 2019-12-08 11:40:00 76 mm[Hg] [facility] S t [facility] Heart rate 2019-12-08 11:40:00 110 /min [facility] Body temperature 2019-12-08 11:40:00 36.28 Ruma [facility] Respiratory rate 2019-12-08 11:40:00 18 /min [facility] Oxygen saturation in 2019-12-08 11:40:00 97 /min [facility] - Arterial blood by Medical Ce nter Pulse oximetry Body weight 2019-12-06 05:30:00 106.6 kg [facility] BMI 2019-12-06 05:30:00 30.17 kg/m2 [facility] Body height 2019-12-03 19:31:00 188 cm [facility] Procedures Procedure Date / Time Performed Performing Clinician [facility] e RHYTHM STRIP - SCAN 2019-12-11 12:00:54 Provider, Default [facility] RHYTHM STRIP - SCAN 2019-12-10 08:20:08 Provider, Default [facility] TRANSFUSION SERVICE 2019-12-08 18:01:57 Provider, [facility] REPORT [facility] BASIC METABOLIC PANEL (7) 2019-12-08 05:21:00 Edmund Hadley [facility] HEPATIC FUNCTION PANEL 2019-12-08 05:21:00 Edmund Hadley [facility] CBC W/PLT COUNT & AUTO 2019-12-08 05:21:[address] [facility] S t [facility] - DIFFERENTIAL [facility] TISSUE EXAM 2019-12-07 12:07:00 Lilly James [facility] AFB CULTURE + SMEAR 2019-12-07 11:35:53 Lilly [facility] (NON-SPUTUM) [facility] ANAEROBIC CULTURE 2019-12-07 11:35:53 Lilly [facility] FUNGUS CULTURE + SMEAR 2019-12-07 11:35:53 Lilly James [facility] SURGICALLY OBTAINED 2019-12-07 11:35:53 Lilly [facility] - CULTURE + GRAM STAIN Medical Deloris ter SPIN/CONCENTRATION CHARGE 2019-12-07 11:35:00 [facility] LAPAROS[facility],CHOLECYSTECTO 2019-12-07 10:40:00 James Carr [facility] MAGNESIUM 2019-12-07 05:05:00 Yenifer Barragan [facility] PHOSPHORUS 2019-12-07 05:05:00 Yenifer Barragan [facility] COMPREHENSIVE METABOLIC 2019-12-07 05:05:00 Yenifer Barragan [facility] PT/APTT 2019-12-07 05:05:00 Júnior [facility] PROTHROMBIN TIME/INR 2019-12-07 05:05:00 Júnior [facility] CBC W/PLT COUNT & AUTO 2019-12-07 05:05:[address] [facility] t [facility] - DIFFERENTIAL [facility] TYPE AND SCREEN, 2019-12-07 05:04:00 Júnior [facility] AUTOMATED [facility] US ABDOMEN LIMITED 2019-12-06 23:17:[address] [facility] 2D ECHO W/ DOPPLER 2019-12-06 15:53:07 Yenifer Barragan [facility] (CW/PW/COLOR) [facility] XR CHEST 1 VIEW 2019-12-06 11:29:00 Yenifer Barragan [facility] PORTABLE/BEDSIDE Medical Center CT ABDOMEN/PELVIS WITH IV 2019-12-06 04:24:00 Gigi Barth ed [facility] CBC W/PLT COUNT & AUTO 2019-12-06 01:55:00 SerlennieoObdulio [facility] MAGNESIUM 2019-12-06 01:54:00 Yenifer Barragan [facility] PHOSPHORUS 2019-12-06 01:54:00 YungYenifer [facility] COMPREHENSIVE METABOLIC 2019-12-06 01:54:00 Yung Yeniferpretty Knapp [facility] RHYTHM STRIP - SCAN 2019-12-05 12:20:06 Provider, Default [facility] MAGNESIUM 2019-12-05 02:27:00 Yung Yeniferpretty Knapp [facility] PHOSPHORUS 2019-12-05 02:27:00 Yung Yeniferpretty Knapp [facility] COMPREHENSIVE METABOLIC 2019-12-05 02:27:00 Yenifer Barragan [facility] CBC W/PLT COUNT & AUTO 2019-12-05 02:27:[address] [facility] S t [facility] ECG 12-LEAD 2019-12-04 05:36:50 Matthew Frances [facility] PHOSPHORUS 2019-12-04 03:57:00 [facility] 2019-12-04 03:57:00 [facility] BASIC METABOLIC PANEL (7) 2019-12-04 03:57:00 Mutuckamala, [facility] CBC W/PLT COUNT & AUTO 2019-12-04 03:57:[address] [facility] S t [facility] HEPATIC FUNCTION PANEL 2019-12-03 18:22:[address] [facility] PHOSPHORUS 2019-12-03 18:22:00 [facility] MAGNESIUM 2019-12-03 18:22:00 [facility] BASIC METABOLIC PANEL (7) 2019-12-03 18:22:00 Mutucumarmartha, [facility] TRANSFUSION SERVICE 2019-12-03 18:02:14 Provider, Default [facility] REPORT - SCAN [facility] IRON, TIBC, % SAT. 2019-12-03 04:33:00 Serenio, [facility]WITHOUT FERRITIN[facility] 2019-12-03 04:33:00 Champ [facility] PHOSPHORUS 2019-12-03 04:33:[address] [facility] MAGNESIUM 2019-12-03 04:33:00 [facility] BASIC METABOLIC PANEL (7) 2019-12-03 04:33:00 Mutcait, I [facility] TRIGLYCERIDES 2019-12-03 04:33:00 Champ [facility] CBC W/PLT COUNT & AUTO 2019-12-03 04:33:00 Champ [facility] DIFFERENTIAL [facility] PHOSPHORUS 2019-12-02 16:40:00 [facility]UM 2019-12-02 16:40:00 [facility] BASIC METABOLIC PANEL (7) 2019-12-02 16:40:00 [facility] LIPID PANEL 2019-12-02 16:40:00 [facility] VITAMIN B12 AND FOLATE 2019-12-02 13:17:00 [facility] POTASSIUM 2019-12-02 13:17:00 Champ [facility] MAGNESIUM 2019-12-02 13:17:00 Serfelipa [facility] PHOSPHORUS 2019-12-02 13:17:00 [facility], 2019-12-02 04:03:00 Champ [facility] s - AUTOMATED [facility] TSH 2019-12-02 03:56:00 Champ [facility] T4, FREE 2019-12-02 03:56:00 Serfelipa [facility] ETHANOL 2019-12-02 03:55:00 [facility] BASIC METABOLIC PANEL (7) 2019-12-02 03:55:00 Christianofelipa [facility] MAGNESIUM 2019-12-02 03:55:00 Serlennierose marie [facility] PHOSPHORUS 2019-12-02 03:55:00 [facility] CBC W/PLT COUNT & AUTO 2019-12-02 03:55:00 Champ [facility] ECG 12-LEAD 2019-12-02 02:21:46 [facility] ([facility] & 2019-12-02 02:04:00 Apurva Hill [facility] - REF LABS) [facility] DRUG SCREEN, URINE, 2019-12-02 01:28:00 Apurva Hill [facility] HEPATIC FUNCTION PANEL 2019-12-02 01:00:00 Apurva Hill [facility] BASIC METABOLIC PANEL (7) 2019-12-02 01:00:00 Apurva Hill [facility] LIPASE 2019-12-02 01:00:00 Apurva Hill [facility] PROTHROMBIN TIME/INR 2019-12-02 01:00:00 Apurva Hill [facility] MAGNESIUM 2019-12-02 01:00:00 [place] Yissel [facility] PHOSPHORUS 2019-12-02 01:00:00 Champ [facility] AMYLASE 2019-12-02 01:00:00 Serfelipa [facility] CBC W/PLT+MANUAL DIFF 2019-12-02 00:59:[address] [facility] CBC WITH PLATELET COUNT + 2019-12-02 00:59:[address] [facility] - MANUAL DIFF [facility] CBC W/PLT COUNT & AUTO 2019-12-02 00:59:00 Ap[address] [facility] - DIFFERENTIAL [facility] Plan of Care Planned Activity Planned Date Details Comments Source Future Scheduled 2022-12-[address] [facility] - Test 00:00:00 (procedure) [code = [facility] [id number]] Future Scheduled 2019-12-[address] [facility] - Test 00:00:00 (#1) [code = [facility] INFLUENZA VACCINE (#1)] Future Scheduled [address] [facility] Test 00:00:00 malignant neoplasm Medical C enter of colon (procedure) [code = 651998340] Encounters Start End Encounter Admission Attending Care Care Encounter Source Date/Time Date/Time Type Type Clinicians Facility Department ID 2020-02-24 2020-02-24 Emergency [facility] [id number] 09:24:00 15:34:00 Alcides Muñoz [id number] [place] [id number] [place] [id number] 2020-02-24 2020-02-24 Orders Doctor VALDEZ [id number] 00:00:00 00:00:00 Only Unassigned, OL[place] [id number] [place] [address]686 [id number] [id number] 2020-01-09 2020-01-09 Orders Doctor VALDEZ [id number] 00:00:00 00:00:00 Only UnassignedOLGA [id number] [place] [address]686 [id number] [id number] 2019-11-20 2019-11-20 Orders Doctor VALDEZ [id number] 00:00:00 00:00:00 Only UnassignedOLGA [id number] [place] [address]686 [id number] [id number] 2019-10-07 2019-10-07 Telephone Rosa RUST [id number] 00:00:00 00:00:00 Kye Muñoz [id number] [place] [id number] Nadja [id number] nal 044 Building 2019-10-07 2019-10-07 Orders Doctor JOSÉ MIGUEL [id number] 00:00:00 00:00:00 Only Unassigned, OLGA [id number] [place] [facility] [id number] [id number] 2019-10-06 2019-10-06 Telephone Rosa RUST [id number] 00:00:00 00:00:00 Kye Muñoz [id number] [place] [id number] Profconnerio [id number] nal 044 [facility] Results Test Description Test Time Test Comments Results Result Comments Source AFB culture + smear (non-sputum) 2020-01-19 11:11:00 Test Item Value Reference Range Interpretation Comme nts Result (test code = 6463-4) No acid-fast bacilli isolated in 42 day s AFB Smear (test code = 68854-2) No acid fast bacilli [facility]-SPUTUM)2020-01-19 11:11:00 Test Item Value Reference Range Interpretation Comments CULTURE (BEAKER) (test No acid-fast bacilli code = 1095) isolated in 42 days AFB SMEAR (BEAKER) No acid fast bacilli (test code = 994) seen Fungus culture + [id number] 17:19:00 Test Item Value Reference Range Interpretation Comments Result (test code = No fungus isolated in 6463-4) 28 days Fungus Smear (test No fungal elements seen code = 1406) [facility] + [id number] 17:19:00 Test Item Value Reference Range Interpretation Comments CULTURE (BEAKER) (test No fungus isolated in code = 1095) 28 days FUNGUS SMEAR (BEAKER) No fungal elements seen (test code = 1406) Anaerobic [id number] 18:40:00 Test Item Value Reference Range Interpretation Comments Result (test code = 4+ Clostridium A 6463-4) perfringens Lab Interpretation (test Abnormal code = 16280-8) [facility] [id number] 18:40:00 Test Item Value Reference Range Interpretation Comments CULTURE (BEAKER) (test A 4+ Cl ostridium perfringens code = 1095) SURGICALLY OBTAINED CULTURE + GRAM [id number] 09:30:00 Test Item Value Reference Range Interpretation Comments CULTURE (BEAKER) CITROBACTER A <1+ Citroba cter (test code = 1095) FREUNDII freundii Amikacin (test code = S 1) Aztreonam (test code S = 32) Cefepime (test code = S 51) Cefoxitin (test code R = 68) Ceftazidime (test S code = 27) Ceftriaxone (test S code = 52) Ertapenem (test code S = 38) Gentamicin (test code S = 18) Levofloxacin (test S code = 22) Meropenem (test code S = 34) Nitrofurantoin (test S code = 23) Piperacillin + S Tazobactam (test code = 29) Tetracycline (test S code = 2) Tobramycin (test code S = 25) Trimethoprim + S Sulfamethoxazole (test code = 47) CULTURE (BEAKER) ENTEROCOCCUS A 2+ Enteroco ccus (test code = 1095) FAECALIS faecalis Ampicillin (test code S = 26) Linezolid (test code S = 40) Vancomycin (test code S = 13) CULTURE (BEAKER) ENTEROCOCCUS A 2+ Enteroco ccus (test code = 1095) AVIUM avium Ampicillin (test code Susceptible 0-8 S = 26) , Resistant <0 or >8 Linezolid (test code Susceptible 0-2 S = 40) , Resistant <0 or >2 Vancomycin (test code Susceptible 0-4 S = 13) , Resistant <0 or >4 GRAM STAIN RESULT No WBCs (BEAKER) (test code = 1123) GRAM STAIN RESULT <1+ gram positive (BEAKER) (test code = rods 161818) Tissue [id number] 13:23:00 Test Item Value Reference Range Interpretation Comments Case Report (test code Surgical Pathology = 104) Report Case: [id number] Authorizing Provider: James Carr MD Collected: 12/07/2019 12:07 PM Ordering Location: [address] Received: 12/08/2019 10:06 AM Service Pathologist: Syl Rg MD Specimen: Gallbladder DIAGNOSIS (test code = [id number] 3220) FuZzEwMzNcZnRuYmpcdWMx PVqsaeBhJHwlu6JeD0JoYf AwMFxhbnNpXGRlZmxhbmcx AUEfJMN0mcCcSGQhTWjmMJ SvGKhrJr4mkCCgnIseJlDo BPByr2wosnYUqacbhAp9a9 gqSIWlUnL6iVDhCXzuE1dn ocRibLLgFBTaQDw6wM52XY BkoW6uiPOgPPkozsZlVfP0 CCnaLWPqIaX5PUMlyWIeVL BmA7edSCToAAwvGERmOMjy mTBoGQH1eXojn8N2hNNgzD TxzWtiUjOjFoIdPPORv0Km OIc9eFvjV1MoDLNnPfK0zI QgUGFyYWdyYXBoIEZvbnQ7 dY49WLpveoF2fUMzt5Rqb9 2fo752bS3anCFgRMS1OSWi ZHAtrUUxREXvHMN2OHDrfT XgO0x1TkYzxPUwS0U0LaWn vNUaT9C0PuWirEBrP8G9Oj AxaLQrPURvnKYnPh6kbOCz xPGmxn8sgf21GRD8f8YmnY twZBD8BEZ3XzRhTk8mkDTw XBLtKV3kXbMmaYPaKKQyzv 10aDxtNYbqpuJonC3nFdDk AQJgkXTjPWRiDZ6qkWDmAK HqpE2owjwvATVmGjLunqvm OCJdxFfcysWoAr5pxRtuDK J7QGucU1udeE9bSzB5PDey T2xveK4yIEg6SWqwvUZ4US EtlN7jCC1okikxl6bwWpTy KV2ghjfrq4mnZzPxZP9unc v8c2grFuHqYO0bgxerx3yh NzIwXGhlYWRlcnkwXGZvb3 NataxlCRIpm8YuQ8RiaHnq C53zwPvfK59yIMNnbLwyiG 1caSincM1aElMrCzVtMOpg bFxwbGFpblxmMVxmczIwXG bavozsIURsOXcgS1sgNxYg CPOpkGeuWSgek5NrMEKqTX TuLvRtEK9dB2BGAXIITLHE BVLxDUqDGUEBE6OAU6HLBy BYIH3TGIQZG9LSP5USDXj5 XHBhciAtICBDSFJPTklDIE DDB5sME6eLXVqYQTUozIRs BS5aPNBSR3jJKFeNEVuEE6 lTXHBhciAtICBDWVNUSUMg OXIUQNIDYWDYBM0eWFTRGj VNQVJLQUJMRVxwYXIgLSAg SbUZXJZJIpDpYc3JOWQNT8 ICYAVPHIAYNxXCLDsSS53F TgGZHCHpzb32PGV7LsBvz3 C8PWA3ZMNeAQRyd0dbAEYk bGFuZzEwMzNcZnRuYmpcdW LkUVRnRcVrn8uxy306fGKy n0isGABfQjF9kNUiJBLfrI VyN862HCDoAIulq7qzx6Vu OOVhbVZkl7N7KTLYttwliB o3rDaxT96pd6Q2TjzeU8jb DBZkTWTeR3PmDO8hIYWxJm d8JWZ1ISI5YGKtWUMsL4Gp GK1qOFRcuJQtPHc9u0ekhI wnCJKrRFP1o8hrVGaoqqLe ZC3mdl4zuMf4t6brhmMvRZ EgRXRnlRNWDVZrW6PciArz Da0vdJb0bTllPsguUDC5Wc r0VN5vkr88oar4oCjvUIEx sjqyRoB6WQoaOZOutsrxLH n9TOpqONDygYN1ZLLvhAUj Y4BoOSMdPQ3zpjn2BTZ1IN sgXOOuDaZ3JYWqoOVhJFDa iAsvPKrlh816YNQ2IsSgWL 4nE2Ard7X2dD7fcAHvBRUw aXCgLvDfFKQedv3xdNOoNC tbx3AoDHD2owK1sFXqwGId UANgJmH1UMpvMA9wfe08JC CrVUF0yz3fkTNefSilgdHu rZNbOUciY2VbIRNee325NF HoL3OaHEMfh7N9luYyFlWl VKFysBH7lvL0CMRsFR4wlj rsg8tuFQvrYBseXRTloxR5 wvP1WDWdbEUxA4NqwL6cDS WwEP0vadpjx1jpTOD5RNzi JTCnJCS1TrTgJXWgt0Hzvo l3SsKiz5VikGHmLBdlG47x h164WNJqzgPwM5tohAIoea moaJXdecnhHHndckV9OVJd QNfnnrzdRFEaVLjuL4arIb NfMAWjoLgrLWfww5JbPSEa IKScOqJirHJxXEIjJae5UG HfnADqNUSvUkJqQ6zkzozx CiQAYUIpy0cqC4hvwCITwL SaM6DcFDuxkwPdIShoWSeg ITT2LVU0Cm70AaO3CQCnuf 19 CPT Code(s) (test code r4murQIpFIUkyAUsCzWnIC = 3359) ToZVGlf0jsMGByxNSiKkZc MzNcZnRuYmpcdWMxXGRlZm Nvo6avq061sNKvs8gvNRWo CbK4rSYaVUJhfXVlJ024c4 snn5npaeKjeWK4SRVwTCY2 ZLgigqIgxrN8YPbgxLYfYt Z9UDyjhoRmGXexmvXetwJa Iya4IANnM660XBI9rOahn2 gtKNU3KBJwGONhYsHvYj7f aZKyO213HEWrCHDJJLXjyY n7HTYrtwEsgcBffSEZi549 T080b7ruGJJxqaGltUdQah xji0fbE889UEWztULqrzLj NiKoGACznCApoJW4RPQwNO 0wgpjjVbXzTD6qkydeByZr MA3waov9PlRtJB4xebtyBe CqPCswTXKkfryuIRWzs7Kf cccpRV1zU0Dia1W1uG0ffE TxAVXlhVOoYtDdXCRmbd0f tOMnHWsqr8DjOXI7uwG0qK XtxEVnOKXvIA08Jgyba7Lv SmdaZAR4OXTdwwRie3Ztv0 ksSfAdmgCeO9ueB7ZjGTFn KIPwWHKrVxRjgsHtl4Etc0 QlkYCjpGm7c4luOZOoZLOs hLgab7jpWEH9LPFdZ4X6oO Czm9qfTOtrIHKxrFV9ttgp JJacMGNrafR4oultYXegZF JtiHP8ilhcKTnfZBUePhC7 tjzoIPghUSGsTCQ6ZYypz1 40ZUS3EStpCbnpZXidFRCw bmNvbnRccGduZGVjXHBsYW luXHBsYWluXGYwXGZzMjRc zVougHrwuG4wTlMrGaVaVO wjMZ5oQRTgG6bmoFVaRAKe SARsD9omErTxhS3twWftIQ nlnwGcPWy5OmZ7BKKlxm1= CLINICAL HISTORY (test p8cgmKXxQOFuhXScErPbYG code = 3356) GjNQOpm2mtZDQzjIJpQaAs MzNcZnRuYmpcdWMxXGRlZm Tsi7uqg416cHNet2xnIXOh ZoS7gKYcDQNqgPBlE639u9 qqs9jyniNqzNZ1SCRcMJL9 ILylqnFmvzW3MBvhqEZpMd H5UZfnsuAaZTehslMphxUf Cmv6NTAjC455YWH2qGtqc0 mxQAZ7UJOzYWKuRjFySy8q kUQeR518NUBoYCYKLQEzgZ d9CADlwdCgexSmtTLAo725 W696i1xhGSHwfkFpiOrKzh ruu0gbT753ACWdaLUdakNk AzJgWMEdnDZhlPK9XXErUE 6lnqknYtKqFR9bfwpqApWx LG1jxgc8VkHgIW0gohlbAg CaAOdfSGLustmqECKen7Ko acwzGI5sW0Dck2D4tU3orN EjYNHkzMVyBzPhXFUvit6o vZQrBLiuv0GbQTB5myW0oA YbuYVeCFKfTN32Alway5My JxtnVJT2BDCgxqJeu0Hld6 hlMtSfheSlF3duN4XpYUNp SKGrYQSkQgXcxxOkx8Adq0 LclPJisGu0f7jvHGWuOAVo cKtlu8yqEVC5MORaT6B8hA Ywh7ebAWnsOWNesYN7drfl VNtpMTDflyQ4bslbFJlbLH KbiRF2ddcbYCbdKWNmHvE1 rssvGMhwCZVpNKW9MBwho9 38VOP9SFpzFedfUCncHXCd bmNvbnRccGduZGVjXHBsYW luXHBsYWluXGYwXGZzMjRc eGvrwWqkgR9qDmJmGqCjXW itTM3dSXLbA8vfuKHcABZh OXCoF8jzEkTktW9feYgpVY ggkfAjVAEgn3wcS1medQd0 aXMuXHBhcn0= SPECIMEN SOURCE (test n3upjWVfWLOdaTAyMwDmQX code = 3377) UxBDUuq9jsAGRkcSZrAoBs MzNcZnRuYmpcdWMxXGRlZm Bdz5ojh049yUGft5oqXJSy AnB2iBFfIHAmtGUnL069a2 nqd1rajpHsmZX6WNFuQKY7 BMvutnXsonM0EZnmvQLmCc W5UChdisHfFFzzdcKkbzAf Eye2KDDdM830WBG4cTnxg8 jkEBG5URPiZCCzDkNuTy1x oBKyI124IAKdATSVXQVhsC t9CNVpbpNnxoPpnRGVx313 V077z5uhCGNjzoIoaTwIty ggt7ayH971OTKwrQUmaqVo ZeUvGWTeiHTvbCN7QGOpSV 1zbmcxJtQhNU2xpvdjHbMw OL2nykp6NsAdVX1ljbpnTc FpTDysFWPryqktMRIip9Ze lwmrFT4fU1Gis6P3aK0olB QvAJGxbBCyHnBcNJSkyn6h zDPkCRshf8PoPZS7gfO7sG KbcQRzDDGqTP79Hppsy8Te SfkqQXT2LUIhnfUfd7Rsl2 afYrRpknWgY4qoF0QvTENy TOGgBRJmFgVdowAgx9Ktb9 WpxVWdrZl4z2kaSCEhGECn dUcpm6thKJB4IJCwW2U0uI Fcw2pzMAwnGNEduAC2dbbu BBfvQSZatxZ6otdmHCvbSV GirOO0anicYXflSHXuUnH5 awjwDRvzQZAzRDR6RDjqy7 87SXM6TEdzWarzJZmkZNHp bmNvbnRccGduZGVjXHBsYW luXHBsYWluXGYwXGZzMjRc nOoamZdlrD1kHaNnQxJuES bqGK0jYLGxH3povJXnGORi CYCeT2soAlHncK2siReqXQ xmczIwIEdhbGxibGFkZGVy IFxwYXJ9 GROSS DESCRIPTION (test n0kxlGKhCNOdrEIbVxRiRI code = 3366) UaIOMjx6ryHPJefPKrErJy MzNcZnRuYmpcdWMxXGRlZm Nbz7dhq018rGVco4qwDMUs EcW8jSMoFJOkePKrZ712q8 omj4rsxxImmSQ0VDZjSSW5 LKzwnsBhepO5ZCrowXQlKs P8FTdduvPnLLwakdEvyjJy Bls6AFYaZ503EKD2eHhao8 zeXWJ0BUHiUMRsFgDvOm9i cOWgS450GPTpWRXIJASjsV q0EYYgxqMenfXnnLANl362 I579y4trSCLtnqBrfYeMfu nyq7efS154JGMunIGilcJf WzNyREJiyDTcrAB2PFOgEX 1yeklzZmJqYZ9mxtqkPaZa EP4nbjp4DrErPU4rzyuyKw PqJNpwASRprcgyFXHgc5Sm fnseVW1bW0Wxt3Y4kO1rmV KzFQMtiSYoXiJoHFHobk5o xBVmNZzay2IqARB0hcQ4mK DhqMOmQQXwCX30Xogcs7Xj CxelDNY9BGVrfrXig4Yzy8 vtMkIcmgHfM1bgW6IeGADb LQWyGYQkOrFwnaJyh2Too5 KlxLZcgTt7d6zlBOVuOULy wVgtz8wnDFZ2SGAlB6E2zL Obf6hjWPtaTXKqpFA7lkkr GTfnTZVdzpU6gwzhGIlhED NqzXK3veruAAhvWJZrIeI6 zzdcHFqrGZPhOIN0WJzbn6 29GCM3VWuzWwtvOGilSNPz bmNvbnRccGduZGVjXHBsYW luXHBsYWluXGYwXGZzMjRc tCplbZlhdG4cOqShHmTpBM uxQR3hITVwW8yxgJLiHQSf AHHmS8ybTcJbiW7xjKloXW itfxRwAKSvQ4EqssFdGVkw OGQytr7ywFbcEYbpObDzWW Lhx5d6nYN0dAIpgEY4yINs sJkyPT7znXNpHCArO6Nuv8 dyaeIhgY1lRFFzXO2kJUZh YWxsYmxhZGRlciIgaXMgYW 5eRU60ZGinXk5oLJfsOQ5u IGNtIGludGFjdCBnYWxsYm vpKGLeulO8gMDcAOFqEJ5y ZHNjGNydNOzawez4iTH5YJ AuMiBjbSBpbiBkaWFtZXRl txWusTJxM6fhDPJtuOZ2vI PjTKNhiU6bYMkbZDSsri4v TIMlgxQ0RYpql4tdoNjahc xuy58lw9RmIJJdPOSfbCOz cmVtaWMuIFRoZSBzcGVjaW 7ovzBgffOrwDXeQUUbbE5s jsS6OHYjEJQrwVIdrFanGB CwmYxkLvFsNFFgYfK9XElb u4opGxjoNGKyuvUzESNvKu PhrMHyFfAavQZfHhPkU06o MScytdEiFTPrKD0jWMYcLI ReHMAkw7AuoOR6COWfJ7Eb P0PsqJ4bNNizydLqMXYcQK 8kVUGkkDU1mWyvtB5nK8Jh HRrbzJlkzpY6qCZaT7nqoX dbOIV1B4DwEEKpZZMudICg w1EvgUAcqRWwUEujtFtwku jfVv1gKXdmaMT1whAnLXU7 mUN1JMHjDN5aARRdtENeyV jrWYSfNDQ4OPybZM5zTJT3 cmVzIHVwIHRvIDAuNCBjbS Q4uDfids0dVkPaznYzSD57 GBBrhvOes8ZipIjdffXgKY NkKBF7Op9xgOVrLVYuqxZM YP7CMyp9qLOyCGJsDGAhhw lpPDAshTH2kQUtCDXfzUQl PIMctC1xdK5oMASuVUPOB8 A1LKgeTGC0 MICROSCOPIC DESCRIPTION i2xegWIjFIOusZEoWmPoLF (test code = 3371) AzKBGvf8jtYZUydHPrPhGh MzNcZnRuYmpcdWMxXGRlZm Sgb2mck314fYDpe4iiHZOm OcW7jKXqFSPgyLClM581b8 fam2nfdgUkdND2YTXePDL9 HCjjuvKoojP9QHbpuVCoWf K9PBgqjbFvMClnpdAhmfSc Avz2KJUgB660LQS2cWrzn4 laJGB2NISqBEZmElYbYa2n hXAaP201DQUyATXBPSVmlF q1JRNwbdNqtoHkaPGGx256 X814y4miBAUxqpYxuDnMqu gzy8jyO811JSHsyWCmpvXt XeCdCXLccGPdkIW1DQMdAU 0fruhvFpMtGK2jytfuGvIi EW3wish7ZhOfQP6tcfxpMn ZrMLreKWFjvemrGNTrq8Mh eocrAZ3hF3Yby8M3vR0lsX SgWLXipYInRiAfHBUhps6y jDFpLUaxm1SqSSG7vgF2lD UktBJcSLMnZH19Brqvg3Hb OnblHID6LDYsgoWqx3Rsn1 fsMuBincObZ3jcT4MpEAOd DHBfMBCjPiJbhuWbi2Dwo3 ZgeZFwyBr6q6zeGOYeLGSc gAhwr2ceJVW6LJOcC4T7kY Tbo3pgZRnrXFAcvJD4vwob EMyqJZLadrA2qzhuLHfqID StzHD5higbTMlyZZYdFiM0 jafwJNtaMQDuKZW9CWowk6 61ZEJ5ETreJulcCLemPRBq bmNvbnRccGduZGVjXHBsYW luXHBsYWluXGYwXGZzMjRc cOhewCxotG0rUsByGhJxMG htNY0aHXYsJ2fotQNtDDWf GZLgF5slOrQccX4ieRsqSJ dlgxJwELTnmkDmdf8kCB2s cGFyfQ== [id number] 13:23:00Surgical Pathology Report Case: [id number] Authorizing Provider: James Carr MD Collected: 12/07/2019 12:07 PM Ordering Location: [address] Received: 12/08/2019 10:06 AM Service Pathologist: Syl Rg MD Specimen: Gallbladder A. GALLBLADDER, LAPAROSCOPIC CHOLECYSTECTOMY:- CHRONIC CHOLECYSTITIS- CHOLELITHIASIS- CYSTIC DUCT MARGIN, UNREMARKABLE- NEGATIVE FOR DYSPLASIA OR MALIGNANCY Signing Pathologist Direct Phone Line: [phone] signed by Syl Rg MD on 12/10/2019 at 1:23 [id number].Gallbladder Received in formalin labeled with the patient's name, accession number and "gallbladder" is an 8.7x 3.0 x 1.3 cm intact gallbladder with a 0.2 cm in length x 0.2 cm in diameter attached cystic duct.The serosa is yellow-pink, smooth and hyperemic. The specimen is opened to reveal approximately 3 mLof yellow bile and a 3.0 x 1.2 x 0.5 cm aggregate of black bosselated calculi. There are no calculi lodged within the cystic duct. The mucosa is mcghee-yellow, focally trabeculated and velvety. The wall measures up to 0.4 cm thick. Sports Medicine Specialist sections are submitted in A1-A2,with the inked cystic ductmargin in A1. PA/ew Performed. SPIN/CONCENTRATION [id number] 15:19:00 Test Item Value Reference Range Interpretation Comments Concentration charged (test code = Done 7) [facility] [id number] 15:19:00 Test Item Value Reference Range Interpretation Comments CONCENTRATION CHARGED (BEAKER) (test Done code = 2657) Basic Metabolic [id number] 08:41:00 Test Item Value Reference Range Interpretation Comments Sodium (test code = 137 meq/L 654-969 0012-2) Potassium (test code = 4.8 meq/L 3.5-5.1 2823-3) Chloride (test code = 106 meq/L 98-107 2075-0) CO2 (test code = 16 meq/L 22-29 L 2028-9) BUN (test code = 8 mg/dL 7-21 3094-0) Creatinine (test code 0.91 mg/dL 0.57-1.25 = 2160-0) Glucose (test code = 105 mg/dL 70-105 2345-7) Calcium (test code = 8.9 mg/dL 8.4-10.2 21230-5) EGFR (test code = 86 mL/min/1.73 [place] [address]-0) NOT ACCURATE CREATININE CLEARANCE IN PREDICTING GLOMERULAR FILTRATION RATE . ESTIMATED GFR I S NOT APPLICABLE FOR DIALYSIS PATIENTS. SOFY (test code = SOFY) Ship Propeller Finisher ID - LANEY M Lab Interpretation Abnormal (test code = 88693-6) [facility] Center[facility] function [id number] 08:41:00 Test Item Value Reference Range Interpretation Comments Protein, Total (test code 7.0 6.0- 8.3 gm/dL = 2885-2) Albumin (test code = 3.2 g/dL 3.5-5 L 48590-7) Total Bilirubin (test code 0.6 mg/dL 0.2-1.2 = 1975-2) Bilirubin, Direct (test 0.5 mg/dL 0.1-0.5 code = 1968-7) Alkaline Phosphatase (test 128 U/L 40-150 code = 6768-6) AST (test code = 1920-8) 124 U/L 5-34 H ALT (test code = 1742-6) 56 U/L 6-55 H SOFY (test code = SOFY) Ship Propeller Finisher ID - LANEY M Lab Interpretation (test Abnormal code = 46967-1) [facility] Center[facility]ATIC FUNCTION [id number] 08:41:00 Test Item Value Reference Range Interpretation Comments TOTAL PROTEIN (BEAKER) (test code = 7.0 gm/dL 6.0-8.3 770) ALBUMIN (BEAKER) (test code = 1145) 3.2 g/dL 3.5-5.0 L BILIRUBIN TOTAL (BEAKER) (test code 0.6 mg/dL 0.2-1.2 = 377) BILIRUBIN DIRECT (BEAKER) (test 0.5 mg/dL 0.1-0.5 code = 706) ALKALINE PHOSPHATASE (BEAKER) (test 128 U/L 40-150 code = 346) AST (SGOT) (BEAKER) (test code = 124 U/L 5-34 H 353) ALT (SGPT) (BEAKER) (test code = 56 U/L 6-55 H 347) Ship Propeller Finisher FORD DAVISON MBASIC METABOLIC [id number] 08:41:00 Test Item Value Reference Range Interpretation Comments SODIUM (BEAKER) 137 meq/L 136-145 (test code = 381) POTASSIUM (BEAKER) 4.8 meq/L 3.5-5.1 (test code = 379) CHLORIDE (BEAKER) 106 meq/L 98-107 (test code = 382) CO2 (BEAKER) (test 16 meq/L 22-29 L code = 355) BLOOD UREA NITROGEN 8 mg/dL 7-21 (BEAKER) (test code = 354) CREATININE (BEAKER) 0.91 mg/dL 0.57-1.25 (test code = 358) GLUCOSE RANDOM 105 mg/dL 70-105 (BEAKER) (test code = 652) CALCIUM (BEAKER) 8.9 mg/dL 8.4-10.2 (test code = 697) EGFR (BEAKER) (test 86 mL/min/1.73 ESTIMA KELLY GFR IS code = 1092) sq m NOT ACCURATE CREATININE CLEARANCE IN PREDICTING GLOMERULAR FILTRATION RATE . ESTIMATED GFR I S NOT APPLICABLE FOR DIALYSIS PATIEN TS. Ship Propeller Finisher ID - LANEY MCBC with platelet count + automated [id number] 05:58:00 Test Item Value Reference Range Interpretation Comments WBC (test code = 6690-2) 8.7 3.5- 10.5 K/L RBC (test code = 789-8) 3.14 4.63- 6.08 M/L L MCHC (test code = 786-4) 31.7 32.3- 36.5 GM/DL L Hematocrit (test code = 4544-3) 34.1 % 40.1-51 L MCV (test code = 787-2) 108.6 fL 79-92.2 H MCH (test code = 785-6) 34.4 pg 25.7-32.2 H RDW (test code = 788-0) 13.2 % 11.6-14.4 Platelets (test code = 777-3) 150 150- 450 K/CU MM MPV (test code = 52964-0) 12.4 fL 9.4-12.4 nRBC (test code = 413) 0 0- 0 /100 WBC % Neutros (test code = 429) 74 % % Lymphs (test code = 430) 15 % % Monos (test code = 431) 10 % % Eos (test code = 432) 0 % % Baso (test code = 437) 0 % # Neutros (test code = 670) 6.38 1.78- 5.38 K/L H # Lymphs (test code = 414) 1.33 1.32- 3.57 K/L # Monos (test code = 415) 0.89 0.30- 0.82 K/L H # Eos (test code = 416) 0.00 0.04- 0.54 K/L L # Baso (test code = 417) 0.02 0.01- 0.08 K/L Immature Granulocytes-Relative 1 % 0-1 (test code = 2801) Lab Interpretation (test code = Abnormal 91742-6) [facility]CBC [facility]/PLT COUNT & AUTO [id number] 05:58:00 Test Item Value Reference Range Interpretation Comments WHITE BLOOD CELL COUNT (BEAKER) 8.7 K/ L 3.5-10.5 (test code = 775) RED BLOOD CELL COUNT (BEAKER) 3.14 M/ L 4.63-6.08 L (test code = 761) HEMOGLOBIN (BEAKER) (test code = 10.8 GM/DL 13.7-17.5 L 410) HEMATOCRIT (BEAKER) (test code = 34.1 % 40.1-51.0 L 411) MEAN CORPUSCULAR VOLUME (BEAKER) 108.6 fL 79.0-92.2 H (test code = 753) MEAN CORPUSCULAR HEMOGLOBIN 34.4 pg 25.7-32.2 H (BEAKER) (test code = 751) MEAN CORPUSCULAR HEMOGLOBIN CONC 31.7 GM/DL 32.3-36.5 L (BEAKER) (test code = 752) RED CELL DISTRIBUTION WIDTH 13.2 % 11.6-14.4 (BEAKER) (test code = 412) PLATELET COUNT (BEAKER) (test 150 K/CU MM 150-450 code = 756) MEAN PLATELET VOLUME (BEAKER) 12.4 fL 9.4-12.4 (test code = 754) NUCLEATED RED BLOOD CELLS 0 /100 WBC 0-0 (BEAKER) (test code = 413) NEUTROPHILS RELATIVE PERCENT 74 % (BEAKER) (test code = 429) LYMPHOCYTES RELATIVE PERCENT 15 % (BEAKER) (test code = 430) MONOCYTES RELATIVE PERCENT 10 % (BEAKER) (test code = 431) EOSINOPHILS RELATIVE PERCENT 0 % (BEAKER) (test code = 432) BASOPHILS RELATIVE PERCENT 0 % (BEAKER) (test code = 437) NEUTROPHILS ABSOLUTE COUNT 6.38 K/ L 1.78-5.38 H (BEAKER) (test code = 670) LYMPHOCYTES ABSOLUTE COUNT 1.33 K/ L 1.32-3.57 (BEAKER) (test code = 414) MONOCYTES ABSOLUTE COUNT (BEAKER) 0.89 K/ L 0.30-0.82 H (test code = 415) EOSINOPHILS ABSOLUTE COUNT 0.00 K/ L 0.04-0.54 L (BEAKER) (test code = 416) BASOPHILS ABSOLUTE COUNT (BEAKER) 0.02 K/ L 0.01-0.08 (test code = 417) IMMATURE GRANULOCYTES-RELATIVE 1 % 0-1 PERCENT (BARBARA) (test code = 2801) 2D Echo W/Doppler(CW/PW/Color)2019-12-07 11:47:32Ejection FractionSLEH ECHO HEARTLAB LEÓN CPACSInterface, External Ris In - 12/07/2019 11:47 AM C DTTransthoracic Echocardiography Report (TTE) Demographics Patient Name TREMAINE MONTANA Date of Study 12/06/2019 Gender Male Visit Number [id number] Race Unknown Room Number 734 NumberDate of 1960 Referring Physician Yenifer Barragan Age 59 year(s) 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 No significant valve disease detected. The estimatedRA pressure by IVC dynamics 5-10mmHg . Estimated [...] with IV ultrasound enhancing agent. LV diastolic functionis indeterminate. Left Atrium LA size is normal (16-34 ml/m2) . Right Ventricle The right ventricular chamber size and systolic function are within normal limits. Right Atrium RA cavity size is normal . Aortic Valve Mild AoV cusp calcification. AoV cusp mobility is normal . Mitral Valve Mild MV leaflet t hickening. Tricuspid Valve A trace of tricuspid regurgitation. Estimated peak systolic PA pressure is 30-35 mmHg (normal range) . Pulmonic Valve PV is not well visualized; function appears normal by Doppler visualized. Aorta Aortic root size (SInus of Valsalva diameter) is nor mal . Proximal ascending aorta size is normal . Pericardium No significant pericardial effusion is visualized. IVC/SVC/PA/PV/Pleural The estimated RA pressure by IVC dynamics 5-10mmHg . Chambers/Structures Left Atrium LA Volume: 55.13 ml LA Area : 19.55 cm^2 LA Vol. Index: 24 ml/m^2 [...] TR Velocity: 2.44 m/s TR Gradient: 23.81 mmHgKaiser [facility] Medical CenterType and screen, [id number] 06:53:00 Test Item Value Reference Range Interpretation Comments ABO/RH AUTOMATED (BEAKER) (test A NEGATIVE code = 2260) Ab Scrn (test code = 890-4) NEGATIVE [facility]Com[facility] [id number] 06:29:00 Test Item Value Reference Range Interpretation Comments Protein, Total (test 6.1 6.0- 8.3 gm/dL code = 2885-2) Albumin (test code = 2.8 g/dL 3.5-5 L 37582-8) Alkaline Phosphatase 118 U/L 40-150 (test code = 6768-6) Total Bilirubin (test 0.5 mg/dL 0.2-1.2 code = 1975-2) Sodium (test code = 137 meq/L 185-114 7491-2) Potassium (test code = 3.9 meq/L 3.5-5.1 2823-3) Chloride (test code = 105 meq/L 98-107 2075-0) CO2 (test code = 26 meq/L 22-29 8-9) BUN (test code = 4 mg/dL 7-21 L 3094-0) Creatinine (test code 0.79 mg/dL 0.57-1.25 = 2160-0) Glucose (test code = 93 mg/dL 70-105 2345-7) Calcium (test code = 8.5 mg/dL 8.4-10.2 67836-3) AST (test code = 80 U/L 5-34 H 1920-8) ALT (test code = 39 U/L 6-55 1742-6) EGFR (test code = 101 mL/min/1.[place] [address]-2) NOT ACCURATE CREATININE CLEARANCE IN PREDICTING GLOMERULAR FILTRATION RATE . ESTIMATED GFR I S NOT APPLICABLE FOR DIALYSIS PATIENTS. SOFY (test code = SOFY) Ship Propeller Finisher ID - LANEY Lab Interpretation Abnormal (test code = 80630-2) [facility] CenterMagnesium2020-08-23 06:29:00 Test Item Value Reference Range Interpretation Comments Magnesium (test code = 1.4 mg/dL 1.6-2.6 L 99669-8) SOFY (test code = SOFY) Ship Propeller Finisher [facility] Lab Interpretation (test Abnormal code = 90158-6) [facility] CenterPhosphorus2020-08-23 06:29:00 Test Item Value Reference Range Interpretation Comments Phosphorus (test code = 4.9 mg/dL 2.3-4.7 H 2777-1) SOFY (test code = SOFY) Ship Propeller Finisher [place] [facility] Lab Interpretation (test Abnormal code = 67074-1) [facility] CenterPHOSPHORUS2020-08-23 06:29:00 Test Item Value Reference Range Interpretation Comments PHOSPHORUS (BEAKER) (test code = 4.9 mg/dL 2.3-4.7 H 604) Ship Propeller Finisher ID - [facility] [id number] 06:29:00 Test Item Value Reference Range Interpretation Comments MAGNESIUM (BEAKER) (test code = 1.4 mg/dL 1.6-2.6 L 627) Ship Propeller Finisher ID - [facility] MCOMPREHENSIVE METABOLIC [id number] 06:29:00 Test Item Value Reference Range Interpretation Comments TOTAL PROTEIN 6.1 gm/dL 6.0-8.3 (BEAKER) (test code = 770) ALBUMIN (BEAKER) 2.8 g/dL 3.5-5.0 L (test code = 1145) ALKALINE PHOSPHATASE 118 U/L 40-150 (BEAKER) (test code = 346) BILIRUBIN TOTAL 0.5 mg/dL 0.2-1.2 (BEAKER) (test code = 377) SODIUM (BEAKER) (test 137 meq/L 136-145 code = 381) POTASSIUM (BEAKER) 3.9 meq/L 3.5-5.1 (test code = 379) CHLORIDE (BEAKER) 105 meq/L 98-107 (test code = 382) CO2 (BEAKER) (test 26 meq/L 22-29 code = 355) BLOOD UREA NITROGEN 4 mg/dL 7-21 L (BEAKER) (test code = 354) CREATININE (BEAKER) 0.79 mg/dL 0.57-1.25 (test code = 358) GLUCOSE RANDOM 93 mg/dL 70-105 (BEAKER) (test code = 652) CALCIUM (BEAKER) 8.5 mg/dL 8.4-10.2 (test code = 697) AST (SGOT) (BEAKER) 80 U/L 5-34 H (test code = 353) ALT (SGPT) (BEAKER) 39 U/L 6-55 (test code = 347) EGFR (BEAKER) (test 101 ESTIMATE D GFR IS code = 1092) mL/min/1.73 sq NOT ACCURA TE m CREATININE CLEARANCE IN PREDICTING GLOMERULAR FILTRATION RATE . ESTIMATED GFR I S NOT APPLICABLE FOR DIALYSIS PATIEN TS. Ship Propeller Finisher ID - LANEY MCBC W/PLT COUNT & AUTO [id number] 06:12:00 Test Item Value Reference Range Interpretation Comments WHITE BLOOD CELL COUNT (BEAKER) 4.8 K/ L 3.5-10.5 (test code = 775) RED BLOOD CELL COUNT (BEAKER) 2.85 M/ L 4.63-6.08 L (test code = 761) HEMOGLOBIN (BEAKER) (test code = 10.0 GM/DL 13.7-17.5 L 410) HEMATOCRIT (BEAKER) (test code = 30.1 % 40.1-51.0 L 411) MEAN CORPUSCULAR VOLUME (BEAKER) 105.6 fL 79.0-92.2 H (test code = 753) MEAN CORPUSCULAR HEMOGLOBIN 35.1 pg 25.7-32.2 H (BEAKER) (test code = 751) MEAN CORPUSCULAR HEMOGLOBIN CONC 33.2 GM/DL 32.3-36.5 (BEAKER) (test code = 752) RED CELL DISTRIBUTION WIDTH 13.0 % 11.6-14.4 (BEAKER) (test code = 412) PLATELET COUNT (BEAKER) (test 114 K/CU MM 150-450 L code = 756) MEAN PLATELET VOLUME (BEAKER) 12.0 fL 9.4-12.4 (test code = 754) NUCLEATED RED BLOOD CELLS 0 /100 WBC 0-0 (BEAKER) (test code = 413) NEUTROPHILS RELATIVE PERCENT 36 % (BEAKER) (test code = 429) LYMPHOCYTES RELATIVE PERCENT 45 % (BEAKER) (test code = 430) MONOCYTES RELATIVE PERCENT 15 % (BEAKER) (test code = 431) EOSINOPHILS RELATIVE PERCENT 3 % (BEAKER) (test code = 432) BASOPHILS RELATIVE PERCENT 1 % (BEAKER) (test code = 437) NEUTROPHILS ABSOLUTE COUNT 1.71 K/ L 1.78-5.38 L (BEAKER) (test code = 670) LYMPHOCYTES ABSOLUTE COUNT 2.14 K/ L 1.32-3.57 (BEAKER) (test code = 414) MONOCYTES ABSOLUTE COUNT (BEAKER) 0.74 K/ L 0.30-0.82 (test code = 415) EOSINOPHILS ABSOLUTE COUNT 0.15 K/ L 0.04-0.54 (BEAKER) (test code = 416) BASOPHILS ABSOLUTE COUNT (BEAKER) 0.04 K/ L 0.01-0.08 (test code = 417) IMMATURE GRANULOCYTES-RELATIVE 0 % 0-1 PERCENT (BEAKER) (test code = 2801) PT/[id number] 05:55:00 Test Item Value Reference Range Interpretation Comments Protime (test code = 13.1 11.9- 14.2 5902-2) seconds INR (test code = 1.02 <=5.90 6301-6) PTT (test code = 34.5 22.5- 36.0 08112-5) seconds SOFY (test code = SOFY) Effective 09/11/2018: PT Reference Range ChangeNew: 11.9-14.2 Previous: 11.7-14.7 RECOMMENDED COUMADIN/WARFARIN INR THERAPY RANGESSTANDARD DOSE: 2.0-3.0 Includes: PROPHYLAXIS for venous thrombosis, systemic embolization; TREATMENT for venous thrombosis and/or pulmonary embolus.HIGH RISK: Target INR is 2.5-3.5 for patients wiht mechanical heart valves. Lab Interpretation Normal (test code = 63008-6) [facility] CenterPT/[id number] 05:55:00 Test Item Value Reference Range Interpretation Comments PROTIME (BEAKER) (test code = 13.1 seconds 11.9-14.2 759) INR (BEAKER) (test code = 370) 1.02 <=5.90 PARTIAL THROMBOPLASTIN TIME 34.5 seconds 22.5-36.0 (BEAKER) (test code = 760) Effective 09/11/2018: PT Reference Range ChangeNew: 11.9-14.2 Previous: 11.7- 14.7RECOMMENDED COUMADIN/WARFARIN INR THERAPY RANGESSTANDARD DOSE: 2.0-3.0 Includes: PROPHYLAXIS for venous thrombosis, systemic embolization; TREATMENT for venous thrombosis and/or pulmonary embolus.HIGH RISK: Target INR is2.5-3.5 for patients wiht mechanical heart valves.Prothrombin time/[id number] 05:54:00 Test Item Value Reference Range Interpretation Comments Protime (test code = 13.1 11.9- 14.2 5902-2) seconds INR (test code = 1.02 <=5.90 6301-6) SOFY (test code = SOFY) Effective 09/11/2018: PT Reference Range ChangeNew: 11.9-14.2 Previous: 11.7-14.7 RECOMMENDED COUMADIN/WARFARIN INR THERAPY RANGESSTANDARD DOSE: 2.0-3.0 Includes: PROPHYLAXIS for venous thrombosis, systemic embolization; TREATMENT for venous thrombosis and/or pulmonary embolus.HIGH RISK: Target INR is 2.5-3.5 for patients wiht mechanical heart valves. Lab Interpretation Normal (test code = 63781-0) [facility] CenterPROTHROMBIN TIME/[id number] 05:54:00 Test Item Value Reference Range Interpretation Comments PROTIME (BEAKER) (test code = 13.1 seconds 11.9-14.2 759) INR (BEAKER) (test code = 370) 1.02 <=5.90 Effective 09/11/2018: PT Reference Range ChangeNew: 11.9-14.2 Previous: 11.7- 14.7RECOMMENDED COUMADIN/WARFARIN INR THERAPY RANGESSTANDARD DOSE: 2.0-3.0 Includes: PROPHYLAXIS for venous thrombosis, systemic embolization; TREATMENT for venous thrombosis and/or pulmonary embolus.HIGH RISK: Target INR is2.5-3.5 for patients wiht mechanical heart valves.U/S, ABDOMINAL, [id number] 00:44:00Abdomen limited area? Add comment if clarification is needed.->Gall BladderReason for exam:->gallstones, concern for acute choleFINAL REPORT TECHNIQUE: Grayscale ultrasound of the right abdomen. INDICATION: gallstones, concern for acute [place]. COMPARISON: None. FINDINGS: MIDLINE VASCULATURE: The visualized inferior vena cava is patent. Portal vein is patent. The maximum visualized aortic diameter is 2.1cm. LIVER: Smooth liver contour. No focal lesions. The main portal vein measures 1.2 cm. BILIARY:Gall bladder: Several gallstones within the gallbladder. No gallbladder wall thickening, pericholecystic fluid, or distention. Positive sonographic Maya sign.Common bile duct measures 0.4 cm, within normal limits. No intrahepatic biliary ductal dilatation. PANCREAS: Incompletely visualized due to overlying bowel gas. PERITONEUM: No free fluid. RIGHT KIDNEY: Normal in size. No hydronephrosis. No sonographically evident solid mass lesion. IMPRESSION:Cholelithiasis without sonographic evidence of inflammatory change. However, sonographic Maya sign was reported as positive. Consider further evaluation with HIDA scan. Signed: Esdras Mir MDReport Verified Date/Time: 12/07/2019 00:44:30 US abdomen [id number] 00:44:00Interface, External Ris In - 12/07/2019 12:46 AM CDTFINAL REPORT TECHNIQUE: Gr ayscale ultrasound of the right abdomen. INDICATION: gallstones, concern for acute london. COMPARISON: None. FINDINGS: MIDLINE VASCULATURE: The visualized inferior vena cava is patent. Portal vein is patent. The maximum visualized aortic diameter is 2.1 cm. LIVER: Smooth liver contour. No focal lesions. The main portal vein measures 1.2 cm. BILIARY:Gallbladder: Several gallstones within the gallbladder. No gallbladder wall thickening, pericholecystic fluid, or distention. Positive sonographic Murphysign.Common bile duct measures 0.4 cm, within normal limits. No intrahepatic biliary ductal dilatation. PANCREAS: Incompletely visualized due to overlying bowel gas. PERITONEUM: No free fluid. RIGHT KIDNEY: Normal in size. No hydronephrosis. No sonographically evident solid mass lesion. IMPRESSION:Cholelithiasis without sonographic evidence of inflammatory change. However, sonographic Maya sign was reported as positive. Consider further evaluation with HIDA scan. Signed: Esdras Mir Veri fied Date/Time: 12/07/2019 00:44:30 [facility], 1 [facility], NON [id number] 12:00:00Reason for exam:->preop clearanceShould this be performed at the bedside?->YesFINAL REPORT History: Preoperative evaluation, cholecystitis Comparison: No comparison chest imaging Findings: The lungs are clear. No pleural effusions or pneumothorax. The heart shadow is normal in size. The thoracic aorta is mildly tortuous. Prior internal fixation of an oldhealed fracture of the left clavicle and several old healed left lateral rib fractures. IMPRESSION: No evidence of acute cardiopulmonary disease. Signed: Andrea Hager Verified Date/Time: 12/06/2019 12:00:14 Reading Location: [address] Transitional Reading Room XR chest 1 view portable / [id number] 12:00:00Interface, External Ris In - 12/06/2019 12:02 PM CDTFINAL REPORT History: Preoperative evaluation, cholecystitis Comparison: No comparison chest imaging Findings: The lungs are c lear. No pleural effusions or pneumothorax. The heart shadow is normal in size. The thoracic aorta is mildly tortuous. Prior internal fixation of an old healed fracture of the left clavicle and severalold healed left lateral rib fractures. IMPRESSION: No evidence of acute cardiopulmonary disease. Signed: Andrea Hager Verified Date/Time: 12/06/2019 12:00:14 Reading Location: [address] Transitional Reading Room [facility]CT, [id number] 05:11:00 Unlisted Reason for Exam - Click Yes and Enter Reason Below->NoFINAL REPORT CT, ABDOMEN \\T\\ PELVIS, WITH IV CONTRAST INDICATION: Epigastric pain COMPARISON: None TECHNIQUE:Post contrast abdomen and pelvis CT. Coronal and sagittal reformatted images obtained. DOSE REDUCTION: Dose modulation, iterative reconstruction, and/or weight-based adjustment of the mA/kV was utilized to reduce the radiation dose to as low as reasonably achievable. FINDINGS: Lower thorax: Normal bilateral right lower lobe dependent atelectasis. No pleural effusion. The heart is normal in size. No pericardial effusion. Coronary artery calcifications. Liver: Hypodensity of the hepatic parenchyma may be related to timing of contrast versus hepatic steatosis. No discrete hepatic lesion.Gallbladder and biliary tree: Cholelithiasis. There is pericholecystic inflammatory changes, with wall thickening in the gallbladder lumen as well as the intra and extrahepatic bile ducts likely related to instrumentation of the ampulla, correlate clinically. Mild prominence of the c ommon bile duct measuring up to 7 mm.Pancreas: No acute findings.Spleen: No acute findingsAdrenal Glands: No acute findings.Kidneys and ureters: No hydronephrosis or nephrolithiasis.Bladder and reproductive organs: Unremarkable. Stomach and Duodenum: No significant findings.Small and large intestine: D iverticulosis of the large bowel without evidence of acute diverticulitis. The small large bowel arenormal in caliber. No abnormal bowel wall thickening.Appendix: Normal. Major vascular structures: Normal aortic caliber.Peritoneum and retroperitoneum: No free air, fluid or adenopathy. Skeleton: Post surgical changes of an ORIF of the left lateral chest wall with multiple remote rib fracture deformities.Additional findings: None. IMPRESSION:Cholelithiasis with pericholecystic inflammatory changes, possibly representing acute cholecystitis. Recommend further evaluation with right upper quadrantultrasound versus nuclear medicine scan. Mild biliary ductal dilatation. Correlate with LFTs and consider further evaluation with MRCP/ERCP. Hypodensity of the hepatic parenchyma may be related to timing of contrast versus hepatic steatosis. Signed: Simon Lal Verified Date/Time: 12/06/2019 05:11:12 CT abdomen/pelvis with IV [id number] 05:11:00Interface, External Ris In - 12/06/2019 5:[address], ABDOMEN \\T\\ PELVIS, WITH IV CONTRAST INDICATION: Epigastric pain COMPARISON: None TECHNIQUE:Post contrast abdomen and pelvis CT. Coronal and sagittal reformatted images obtained. DOSE REDUCTION: Dose modulation, iterative reconstruction, and/or weight-based adjustment of the mA/kV was utilized to reduce the radiation dose to as low as reasonably achievable. FINDINGS: Lower thorax: Normal bilateral right lower lobe dependent atelectasis. No pleural effusion. The heart is normal in size. No pericardial effusion. Coronary artery calcifications. Liver: Hypodensity of the hepatic parenchyma may be related to timing of contrast versus hepatic steatosis. No discrete hepatic lesion.Gallbladder and biliary tree:Cholelithiasis. There is pericholecystic inflammatory changes, with wall thickening in the gallbladder lumen as well as the intra and extrahepatic bile ducts likely related to instrumentation of the ampulla, correlate clinically. Mild prominence of the common bile duct measuring up to 7 mm.Pancreas: No acute findings.Spleen: No acute findingsAdrenal Glands: No acute findings.Kidneys and ureters: No hydronephrosis or nephrolithiasis.Bladder and reproductive organs: Unremarkable. Stomach and Duodenum:No significant findings.Small and large intestine: Diverticulosis of the large bowel without evidence of acute diverticulitis. The small large bowel are normal in caliber. No abnormal bowel wall thickening.Appendix: Normal. Major vascular structures: Normal aortic caliber.Peritoneum and retroperitoneum: No free air, fluid or adenopathy. Skeleton: Post surgical changes of an ORIF of the left lateral chest wall with multiple remote rib fracture deformities.Additional findings: None. IMPRESSION:Cholelithiasis with pericholecystic inflammatory changes, possibly representing acute cholecystitis. Recommend further evaluation with right upper quadrant ultrasound versus nuclear medicine scan. Mild biliary ductal dilatation. Correlate with LFTs and consider further evaluation with MRCP/ERCP. Hypodensity of the hepatic parenchyma may be related to timing of contrast versus hepatic steatosis. Signed:Simon Lal [facility] Verified Date/Time: 12/06/2019 05:11:12 [facility] [id number] 03:32:00 Test Item Value Reference Range Interpretation Comments TOTAL PROTEIN 5.6 gm/dL 6.0-8.3 L (BEAKER) (test code = 770) ALBUMIN (BEAKER) 2.6 g/dL 3.5-5.0 L (test code = 1145) ALKALINE PHOSPHATASE 117 U/L 40-150 (BEAKER) (test code = 346) BILIRUBIN TOTAL 0.5 mg/dL 0.2-1.2 (BEAKER) (test code = 377) SODIUM (BEAKER) (test 139 meq/L 136-145 code = 381) POTASSIUM (BEAKER) 3.1 meq/L 3.5-5.1 L (test code = 379) CHLORIDE (BEAKER) 110 meq/L 98-107 H (test code = 382) CO2 (BEAKER) (test 20 meq/L 22-29 L code = 355) BLOOD UREA NITROGEN 3 mg/dL 7-21 L (BEAKER) (test code = 354) CREATININE (BEAKER) 0.66 mg/dL 0.57-1.25 (test code = 358) GLUCOSE RANDOM 111 mg/dL 70-105 H (BEAKER) (test code = 652) CALCIUM (BEAKER) 7.6 mg/dL 8.4-10.2 L (test code = 697) AST (SGOT) (BEAKER) 94 U/L 5-34 H (test code = 353) ALT (SGPT) (BEAKER) 44 U/L 6-55 (test code = 347) EGFR (BEAKER) (test 124 ESTIMATE D GFR IS code = 1092) mL/min/1.73 sq NOT ACCURA TE m CREATININE CLEARANCE IN PREDICTING GLOMERULAR FILTRATION RATE . ESTIMATED GFR I S NOT APPLICABLE FOR DIALYSIS PATIEN TS. Ship Propeller Finisher ID - LANEY [id number] 02:50:00 Test Item Value Reference Range Interpretation Comments PHOSPHORUS (BEAKER) (test code = 3.3 mg/dL 2.3-4.7 604) Ship Propeller Finisher ID - LANEY [id number] 02:50:00 Test Item Value Reference Range Interpretation Comments MAGNESIUM (BEAKER) (test code = 1.3 mg/dL 1.6-2.6 L 627) Ship Propeller Finisher ID - LANEY MCBC W/PLT COUNT & AUTO [id number] 02:21:00 Test Item Value Reference Range Interpretation Comments WHITE BLOOD CELL COUNT (BEAKER) 4.9 K/ L 3.5-10.5 (test code = 775) RED BLOOD CELL COUNT (BEAKER) 2.86 M/ L 4.63-6.08 L (test code = 761) HEMOGLOBIN (BEAKER) (test code = 9.9 GM/DL 13.7-17.5 L 410) HEMATOCRIT (BEAKER) (test code = 30.2 % 40.1-51.0 L 411) MEAN CORPUSCULAR VOLUME (BEAKER) 105.6 fL 79.0-92.2 H (test code = 753) MEAN CORPUSCULAR HEMOGLOBIN 34.6 pg 25.7-32.2 H (BEAKER) (test code = 751) MEAN CORPUSCULAR HEMOGLOBIN CONC 32.8 GM/DL 32.3-36.5 (BEAKER) (test code = 752) RED CELL DISTRIBUTION WIDTH 12.6 % 11.6-14.4 (BEAKER) (test code = 412) PLATELET COUNT (BEAKER) (test code 98 K/CU MM 150-450 L = 756) MEAN PLATELET VOLUME (BEAKER) 12.4 fL 9.4-12.4 (test code = 754) NUCLEATED RED BLOOD CELLS (BEAKER) 0 /100 WBC 0-0 (test code = 413) NEUTROPHILS RELATIVE PERCENT 45 % (BEAKER) (test code = 429) LYMPHOCYTES RELATIVE PERCENT 40 % (BEAKER) (test code = 430) MONOCYTES RELATIVE PERCENT 12 % (BEAKER) (test code = 431) EOSINOPHILS RELATIVE PERCENT 2 % (BEAKER) (test code = 432) BASOPHILS RELATIVE PERCENT 1 % (BEAKER) (test code = 437) NEUTROPHILS ABSOLUTE COUNT 2.19 K/ L 1.78-5.38 (BEAKER) (test code = 670) LYMPHOCYTES ABSOLUTE COUNT 1.95 K/ L 1.32-3.57 (BEAKER) (test code = 414) MONOCYTES ABSOLUTE COUNT (BEAKER) 0.61 K/ L 0.30-0.82 (test code = 415) EOSINOPHILS ABSOLUTE COUNT 0.11 K/ L 0.04-0.54 (BEAKER) (test code = 416) BASOPHILS ABSOLUTE COUNT (BEAKER) 0.04 K/ L 0.01-0.08 (test code = 417) IMMATURE GRANULOCYTES-RELATIVE 0 % 0-1 PERCENT (BEAKER) (test code = 2801) [facility] 12 [id number] 21:52:28Interface, External Ris In - 12/05/2019 9:52 PM CDTVentricular Rate 118 BPMAtrial Rate 118 BPMP-R Interval 198 msQRS Duration 72 msQ-T Interval 330 msQTC Calculation(Bazett) 462 msP [place] 65 degreesR [place] -14 degreesT [place] 32 degreesSinus tachycardia with Premature atrial complexesOtherwise normal ECGWhen compared with ECG of 02-DEC-2019 02:21,No significant change was foundConfirmed by MD MARRERO MAJID (190) on 12/05/2019 9:52:27 [facility] 02:59[facility]00 Test Item Value Reference Range Interpretation Comments PHOSPHORUS (BEAKER) (test code = 3.5 mg/dL 2.3-4.7 604) Ship Propeller Finisher ID Kana PADRON [id number] 02:59:00 Test Item Value Reference Range Interpretation Comments MAGNESIUM (BEAKER) (test code = 1.4 mg/dL 1.6-2.6 L 627) Ship Propeller Finisher ID - NEREIDA LCOMPREHENSIVE METABOLIC [id number] 02:59:00 Test Item Value Reference Range Interpretation Comments TOTAL PROTEIN 6.9 gm/dL 6.0-8.3 (BEAKER) (test code = 770) ALBUMIN (BEAKER) 3.2 g/dL 3.5-5.0 L (test code = 1145) ALKALINE PHOSPHATASE 143 U/L 40-150 (BEAKER) (test code = 346) BILIRUBIN TOTAL 0.8 mg/dL 0.2-1.2 (BEAKER) (test code = 377) SODIUM (BEAKER) (test 134 meq/L 136-145 L code = 381) POTASSIUM (BEAKER) 3.4 meq/L 3.5-5.1 L (test code = 379) CHLORIDE (BEAKER) 104 meq/L 98-107 (test code = 382) CO2 (BEAKER) (test 22 meq/L 22-29 code = 355) BLOOD UREA NITROGEN 3 mg/dL 7-21 L (BEAKER) (test code = 354) CREATININE (BEAKER) 0.75 mg/dL 0.57-1.25 (test code = 358) GLUCOSE RANDOM 109 mg/dL 70-105 H (BEAKER) (test code = 652) CALCIUM (BEAKER) 8.5 mg/dL 8.4-10.2 (test code = 697) AST (SGOT) (BEAKER) 119 U/L 5-34 H (test code = 353) ALT (SGPT) (BEAKER) 51 U/L 6-55 (test code = 347) EGFR (BEAKER) (test 107 ESTIMATE D GFR IS code = 1092) mL/min/1.73 sq NOT ACCURA TE m CREATININE CLEARANCE IN PREDICTING GLOMERULAR FILTRATION RATE . ESTIMATED GFR I S NOT APPLICABLE FOR DIALYSIS PATIEN TS. Ship Propeller Finisher ID - PIAYA LCBC W/PLT COUNT & AUTO [id number] 02:42:00 Test Item Value Reference Range Interpretation Comments WHITE BLOOD CELL COUNT (BEAKER) 5.5 K/ L 3.5-10.5 (test code = 775) RED BLOOD CELL COUNT (BEAKER) 3.33 M/ L 4.63-6.08 L (test code = 761) HEMOGLOBIN (BEAKER) (test code = 11.5 GM/DL 13.7-17.5 L 410) HEMATOCRIT (BEAKER) (test code = 34.2 % 40.1-51.0 L 411) MEAN CORPUSCULAR VOLUME (BEAKER) 102.7 fL 79.0-92.2 H (test code = 753) MEAN CORPUSCULAR HEMOGLOBIN 34.5 pg 25.7-32.2 H (BEAKER) (test code = 751) MEAN CORPUSCULAR HEMOGLOBIN CONC 33.6 GM/DL 32.3-36.5 (BEAKER) (test code = 752) RED CELL DISTRIBUTION WIDTH 12.3 % 11.6-14.4 (BEAKER) (test code = 412) PLATELET COUNT (BEAKER) (test 105 K/CU MM 150-450 L code = 756) MEAN PLATELET VOLUME (BEAKER) 12.4 fL 9.4-12.4 (test code = 754) NUCLEATED RED BLOOD CELLS 0 /100 WBC 0-0 (BEAKER) (test code = 413) NEUTROPHILS RELATIVE PERCENT 44 % (BEAKER) (test code = 429) LYMPHOCYTES RELATIVE PERCENT 43 % (BEAKER) (test code = 430) MONOCYTES RELATIVE PERCENT 10 % (BEAKER) (test code = 431) EOSINOPHILS RELATIVE PERCENT 2 % (BEAKER) (test code = 432) BASOPHILS RELATIVE PERCENT 1 % (BEAKER) (test code = 437) NEUTROPHILS ABSOLUTE COUNT 2.43 K/ L 1.78-5.38 (BEAKER) (test code = 670) LYMPHOCYTES ABSOLUTE COUNT 2.34 K/ L 1.32-3.57 (BEAKER) (test code = 414) MONOCYTES ABSOLUTE COUNT (BEAKER) 0.54 K/ L 0.30-0.82 (test code = 415) EOSINOPHILS ABSOLUTE COUNT 0.13 K/ L 0.04-0.54 (BEAKER) (test code = 416) BASOPHILS ABSOLUTE COUNT (BEAKER) 0.04 K/ L 0.01-0.08 (test code = 417) IMMATURE GRANULOCYTES-RELATIVE 0 % 0-1 PERCENT (BEAKER) (test code = 2801) [id number] 04:50:00 Test Item Value Reference Range Interpretation Comments MAGNESIUM (BEAKER) 1.4 mg/dL 1.6-2.6 L Specimen slightly (test code = 627) hemolyzed Ship Propeller Finisher ID - [id number] 04:50:00 Test Item Value Reference Range Interpretation Comments PHOSPHORUS (BEAKER) 3.2 mg/dL 2.3-4.7 Specimen slightly (test code = 604) hemolyzed Ship Propeller Finisher ID - EDASIBASIC METABOLIC [id number] 04:50:00 Test Item Value Reference Range Interpretation Comments SODIUM (BEAKER) 135 meq/L 136-145 L (test code = 381) POTASSIUM (BEAKER) 3.3 meq/L 3.5-5.1 L Specimen slightly (test code = 379) hemolyzed CHLORIDE (BEAKER) 103 meq/L 98-107 (test code = 382) CO2 (BEAKER) (test 23 meq/L 22-29 code = 355) BLOOD UREA NITROGEN 4 mg/dL 7-21 L (BEAKER) (test code = 354) CREATININE (BEAKER) 0.71 mg/dL 0.57-1.25 Specimen slightly (test code = 358) hemolyzed GLUCOSE RANDOM 95 mg/dL 70-105 (BEAKER) (test code = 652) CALCIUM (BEAKER) 8.1 mg/dL 8.4-10.2 L (test code = 697) EGFR (BEAKER) (test 114 mL/min/1.73 ESTIM ATED GFR IS code = 1092) sq m NOT ACCURATE CREATININE CLEARANCE IN PREDICTING GLOMERULAR FILTRATION RATE . ESTIMATED GFR I S NOT APPLICABLE FOR DIALYSIS PATIEN TS. Ship Propeller Finisher ID - EDASICBC W/PLT COUNT & AUTO [id number] 04:19:00 Test Item Value Reference Range Interpretation Comments WHITE BLOOD CELL COUNT (BEAKER) 5.9 K/ L 3.5-10.5 (test code = 775) RED BLOOD CELL COUNT (BEAKER) 2.90 M/ L 4.63-6.08 L (test code = 761) HEMOGLOBIN (BEAKER) (test code = 10.0 GM/DL 13.7-17.5 L 410) HEMATOCRIT (BEAKER) (test code = 29.6 % 40.1-51.0 L 411) MEAN CORPUSCULAR VOLUME (BEAKER) 102.1 fL 79.0-92.2 H (test code = 753) MEAN CORPUSCULAR HEMOGLOBIN 34.5 pg 25.7-32.2 H (BEAKER) (test code = 751) MEAN CORPUSCULAR HEMOGLOBIN CONC 33.8 GM/DL 32.3-36.5 (BEAKER) (test code = 752) RED CELL DISTRIBUTION WIDTH 11.9 % 11.6-14.4 (BEAKER) (test code = 412) PLATELET COUNT (BEAKER) (test code 91 K/CU MM 150-450 L = 756) MEAN PLATELET VOLUME (BEAKER) 12.5 fL 9.4-12.4 H (test code = 754) NUCLEATED RED BLOOD CELLS (BEAKER) 0 /100 WBC 0-0 (test code = 413) NEUTROPHILS RELATIVE PERCENT 49 % (BEAKER) (test code = 429) LYMPHOCYTES RELATIVE PERCENT 38 % (BEAKER) (test code = 430) MONOCYTES RELATIVE PERCENT 9 % (BEAKER) (test code = 431) EOSINOPHILS RELATIVE PERCENT 3 % (BEAKER) (test code = 432) BASOPHILS RELATIVE PERCENT 1 % (BEAKER) (test code = 437) NEUTROPHILS ABSOLUTE COUNT 2.91 K/ L 1.78-5.38 (BEAKER) (test code = 670) LYMPHOCYTES ABSOLUTE COUNT 2.23 K/ L 1.32-3.57 (BEAKER) (test code = 414) MONOCYTES ABSOLUTE COUNT (BEAKER) 0.53 K/ L 0.30-0.82 (test code = 415) EOSINOPHILS ABSOLUTE COUNT 0.19 K/ L 0.04-0.54 (BEAKER) (test code = 416) BASOPHILS ABSOLUTE COUNT (BEAKER) 0.04 K/ L 0.01-0.08 (test code = 417) IMMATURE GRANULOCYTES-RELATIVE 0 % 0-1 PERCENT (BEAKER) (test code = 2801) [id number] 19:10:00 Test Item Value Reference Range Interpretation Comments PHOSPHORUS (BEAKER) (test code = 3.0 mg/dL 2.3-4.7 604) Ship Propeller Finisher ID - [id number] 19:10:00 Test Item Value Reference Range Interpretation Comments MAGNESIUM (BEAKER) (test code = 1.8 mg/dL 1.6-2.6 627) Ship Propeller Finisher ID - NTPBASIC METABOLIC [id number] 19:10:00 Test Item Value Reference Range Interpretation Comments SODIUM (BEAKER) 134 meq/L 136-145 L (test code = 381) POTASSIUM (BEAKER) 3.6 meq/L 3.5-5.1 (test code = 379) CHLORIDE (BEAKER) 102 meq/L 98-107 (test code = 382) CO2 (BEAKER) (test 26 meq/L 22-29 code = 355) BLOOD UREA NITROGEN 5 mg/dL 7-21 L (BEAKER) (test code = 354) CREATININE (BEAKER) 0.73 mg/dL 0.57-1.25 (test code = 358) GLUCOSE RANDOM 92 mg/dL 70-105 (BEAKER) (test code = 652) CALCIUM (BEAKER) 8.3 mg/dL 8.4-10.2 L (test code = 697) EGFR (BEAKER) (test 110 mL/min/1.73 ESTIM ATED GFR IS code = 1092) sq m NOT ACCURATE CREATININE CLEARANCE IN PREDICTING GLOMERULAR FILTRATION RATE . ESTIMATED GFR I S NOT APPLICABLE FOR DIALYSIS PATIEN TS. Ship Propeller Finisher ID - NTPHEPATIC FUNCTION [id number] 19:10:00 Test Item Value Reference Range Interpretation Comments TOTAL PROTEIN (BEAKER) (test code = 6.6 gm/dL 6.0-8.3 770) ALBUMIN (BEAKER) (test code = 1145) 3.1 g/dL 3.5-5.0 L BILIRUBIN TOTAL (BEAKER) (test code 1.1 mg/dL 0.2-1.2 = 377) BILIRUBIN DIRECT (BEAKER) (test 0.9 mg/dL 0.1-0.5 H code = 706) ALKALINE PHOSPHATASE (BEAKER) (test 133 U/L 40-150 code = 346) AST (SGOT) (BEAKER) (test code = 180 U/L 5-34 H 353) ALT (SGPT) (BEAKER) (test code = 58 U/L 6-55 H 347) Ship Propeller Finisher ID - [id number] 06:35:00 Test Item Value Reference Range Interpretation Comments Ferritin (test code = 4080.63 ng/mL 5-275 H 2276-4) SOFY (test code = SOFY) Ship Propeller Finisher ID - LANEY [facility] Interpretation (test Abnormal code = 72838-4) [facility] 06:35[facility]00 Test Item Value Reference Range Interpretation Comments FERRITIN (BEAKER) (test code = 4080.63 ng/mL 5.00-275.00 H 361) Ship Propeller Finisher ID - LANEY Rascon, TIBC, % sat. (without ferritin)2019-12-03 06:10:00 Test Item Value Reference Range Interpretation Comments Iron (test code = 2498-4) 161.0 ug/dL 40-160 H TIBC (test code = 2500-7) 159 ug/dL 250-450 L Iron % Saturation (test 101 % 20-55 H code = 2502-3) SOFY (test code = SOFY) Ship Propeller Finisher ID - LANEY [facility] Interpretation (test Abnormal code = 96363-2) [facility], [facility], % SAT. (WITHOUT FERRITIN)2019-12-03 06:10:00 Test Item Value Reference Range Interpretation Comments IRON (BEAKER) (test code = 547) 161.0 ug/dL 40.0-160.0 H TOTAL IRON BINDING CAPACITY 159 ug/dL 250-450 L (BEAKER) (test code = 769) IRON % SATURATION (2) (BEAKER) 101 % 20-55 H (test code = 2590) Ship Propeller Finisher ID - LANEY MBASIC METABOLIC [id number] 05:40:00 Test Item Value Reference Range Interpretation Comments SODIUM (BEAKER) 133 meq/L 136-145 L (test code = 381) POTASSIUM (BEAKER) 3.3 meq/L 3.5-5.1 L (test code = 379) CHLORIDE (BEAKER) 103 meq/L 98-107 (test code = 382) CO2 (BEAKER) (test 24 meq/L 22-29 code = 355) BLOOD UREA NITROGEN 7 mg/dL 7-21 (BEAKER) (test code = 354) CREATININE (BEAKER) 0.65 mg/dL 0.57-1.25 (test code = 358) GLUCOSE RANDOM 103 mg/dL 70-105 (BEAKER) (test code = 652) CALCIUM (BEAKER) 7.8 mg/dL 8.4-10.2 L (test code = 697) EGFR (BEAKER) (test 126 mL/min/1.73 ESTIM ATED GFR IS code = 1092) sq m NOT ACCURATE CREATININE CLEARANCE IN PREDICTING GLOMERULAR FILTRATION RATE . ESTIMATED GFR I S NOT APPLICABLE FOR DIALYSIS PATIEN TS. Ship Propeller Finisher ID - LANEY [id number] 05:23:00 Test Item Value Reference Range Interpretation Comments Triglycerides (test 91 mg/dL code = 2571-8) SOFY (test code = SOFY) TRIGLYCERIDE REFERENCE RANGELow Risk <150Borderline Risk 150-199High Risk 200-499Very High Risk >=500Operator ID - LANEY Samuel [facility]-19 05:23:00 Test Item Value Reference Range Interpretation Comments TRIGLYCERIDES (BEAKER) (test code = 91 mg/dL 540) TRIGLYCERIDE REFERENCE RANGELow Risk <150Borderline Risk 150-199High Risk 200-499Very High Risk>=500Operator ID - LANEY [id number] 05:23:00 Test Item Value Reference Range Interpretation Comments MAGNESIUM (BEAKER) (test code = 1.6 mg/dL 1.6-2.6 627) Ship Propeller Finisher ID - LANEY [id number] 05:23:00 Test Item Value Reference Range Interpretation Comments PHOSPHORUS (BEAKER) (test code = 2.9 mg/dL 2.3-4.7 604) Ship Propeller Finisher ID - LANEY MCBC W/PLT COUNT & AUTO [id number] 04:59:00 Test Item Value Reference Range Interpretation Comments WHITE BLOOD CELL COUNT (BEAKER) 5.3 K/ L 3.5-10.5 (test code = 775) RED BLOOD CELL COUNT (BEAKER) 2.84 M/ L 4.63-6.08 L (test code = 761) HEMOGLOBIN (BEAKER) (test code = 10.2 GM/DL 13.7-17.5 L 410) HEMATOCRIT (BEAKER) (test code = 28.8 % 40.1-51.0 L 411) MEAN CORPUSCULAR VOLUME (BEAKER) 101.4 fL 79.0-92.2 H (test code = 753) MEAN CORPUSCULAR HEMOGLOBIN 35.9 pg 25.7-32.2 H (BEAKER) (test code = 751) MEAN CORPUSCULAR HEMOGLOBIN CONC 35.4 GM/DL 32.3-36.5 (BEAKER) (test code = 752) RED CELL DISTRIBUTION WIDTH 11.8 % 11.6-14.4 (BEAKER) (test code = 412) PLATELET COUNT (BEAKER) (test code 82 K/CU MM 150-450 L = 756) MEAN PLATELET VOLUME (BEAKER) 12.7 fL 9.4-12.4 H (test code = 754) NUCLEATED RED BLOOD CELLS (BEAKER) 0 /100 WBC 0-0 (test code = 413) NEUTROPHILS RELATIVE PERCENT 50 % (BEAKER) (test code = 429) LYMPHOCYTES RELATIVE PERCENT 39 % (BEAKER) (test code = 430) MONOCYTES RELATIVE PERCENT 6 % (BEAKER) (test code = 431) EOSINOPHILS RELATIVE PERCENT 4 % (BEAKER) (test code = 432) BASOPHILS RELATIVE PERCENT 1 % (BEAKER) (test code = 437) NEUTROPHILS ABSOLUTE COUNT 2.62 K/ L 1.78-5.38 (BEAKER) (test code = 670) LYMPHOCYTES ABSOLUTE COUNT 2.02 K/ L 1.32-3.57 (BEAKER) (test code = 414) MONOCYTES ABSOLUTE COUNT (BEAKER) 0.32 K/ L 0.30-0.82 (test code = 415) EOSINOPHILS ABSOLUTE COUNT 0.23 K/ L 0.04-0.54 (BEAKER) (test code = 416) BASOPHILS ABSOLUTE COUNT (BEAKER) 0.04 K/ L 0.01-0.08 (test code = 417) IMMATURE GRANULOCYTES-RELATIVE 0 % 0-1 PERCENT (BEAKER) (test code = 2801) BASIC METABOLIC [id number] 17:32:00 Test Item Value Reference Range Interpretation Comments SODIUM (BEAKER) 134 meq/L 136-145 L (test code = 381) POTASSIUM (BEAKER) 3.9 meq/L 3.5-5.1 (test code = 379) CHLORIDE (BEAKER) 103 meq/L 98-107 (test code = 382) CO2 (BEAKER) (test 25 meq/L 22-29 code = 355) BLOOD UREA NITROGEN 9 mg/dL 7-21 (BEAKER) (test code = 354) CREATININE (BEAKER) 0.77 mg/dL 0.57-1.25 (test code = 358) GLUCOSE RANDOM 110 mg/dL 70-105 H (BEAKER) (test code = 652) CALCIUM (BEAKER) 7.8 mg/dL 8.4-10.2 L (test code = 697) EGFR (BEAKER) (test 104 mL/min/1.73 ESTIM ATED GFR IS code = 1092) sq m NOT ACCURATE CREATININE CLEARANCE IN PREDICTING GLOMERULAR FILTRATION RATE . ESTIMATED GFR I S NOT APPLICABLE FOR DIALYSIS PATIEN TS. Ship Propeller Finisher ID - ASLipid [id number] 17:31:00 Test Item Value Reference Range Interpretation Comments Triglycerides (test 135 mg/dL code = 2571-8) Cholesterol (test code 131 mg/dL = 2093-3) HDL (test code = 73 mg/dL 5-9) LDL Calculated (test 31 mg/dL code = 32934-1) SOFY (test code = SOFY) Triglyceride Reference Range: Low Risk <150 Borderline 150-199 High Risk 200-499 Very High Risk >=500 Cholesterol Reference Range: Low Risk <200 Borderline 200-239 High Risk >240 HDL Cholesterol Reference Range: Low Risk >=60 High Risk <40 LDL Cholesterol Reference Range: Optimal <100 Near Optimal 100-129 Borderline 130-159 High 160-189 Very High >=190 Ship Propeller Finisher [facility] 17:31:00 Test Item Value Reference Range Interpretation Comments PHOSPHORUS (BEAKER) (test code = 3.0 mg/dL 2.3-4.7 604) Ship Propeller Finisher ID - [id number] 17:31:00 Test Item Value Reference Range Interpretation Comments MAGNESIUM (BEAKER) (test code = 2.2 mg/dL 1.6-2.6 627) Ship Propeller Finisher ID - ASLIPID [id number] 17:31:00 Test Item Value Reference Range Interpretation Comments TRIGLYCERIDES (BEAKER) (test code = 135 mg/dL 540) CHOLESTEROL (BEAKER) (test code = 131 mg/dL 631) HDL CHOLESTEROL (BEAKER) (test code 73 mg/dL = 976) LDL CHOLESTEROL CALCULATED (BEAKER) 31 mg/dL (test code = 633) Triglyceride Reference Range: Low Risk <150 Borderline 150-199 High Risk 200-499 Very High Risk >=500Cholesterol Reference Range: Low Risk <200 Borderline 200-239 High Risk >240HDL Cholesterol Reference Range: Low Risk >=60 High Risk <40LDL Cholesterol Reference Range: Optimal <100 Near Optimal 100-129 Borderline 130-159 High 160-189 Very High >=190 Ship Propeller Finisher ID - ASVitamin B12 and [id number] 14:28:00 Test Item Value Reference Range Interpretation Comments Vitamin B12 (test code = 290 pg/mL 842-141 0797-9) Folate (test code = 15.90 ng/mL >=7.00 2284-8) SOFY (test code = SOFY) Ship Propeller Finisher ID - EDASI Lab Interpretation (test Normal code = 65948-2) [facility] Center[facility]IT[facility] AND [id number] 14:28:00 Test Item Value Reference Range Interpretation Comments VITAMIN B12 (BEAKER) (test code = 290 pg/mL 213-816 774) FOLATE (BEAKER) (test code = 362) 15.90 ng/mL >=7.00 Ship Propeller Finisher ID - [id number] 13:49:00 Test Item Value Reference Range Interpretation Comments Potassium (test code = 3.7 meq/L 3.5-5.1 2823-3) SOFY (test code = SOFY) Ship Propeller Finisher ID - EDASICheck Serum Phosphorus level 4 hours after IV phosphorus replacement.Check Serum Potassium level 30 minutes after IV potassium replacement completed. Lab Interpretation (test Normal code = 83211-4) [facility] 13:49:00 Test Item Value Reference Range Interpretation Comments POTASSIUM (BEAKER) (test code = 3.7 meq/L 3.5-5.1 379) Ship Propeller Finisher ID - EDASICheck Serum Phosphorus level 4 hours after IV phosphorus replacement.Check Serum Potassium level 30 minutes after IV potassium replacement completed.[id number] 13:49:00 Test Item Value Reference Range Interpretation Comments MAGNESIUM (BEAKER) (test code = 2.3 mg/dL 1.6-2.6 627) Ship Propeller Finisher ID - EDASICheck Serum Phosphorus level 4 hours after IV phosphorus replacement.Check Serum Potassium level 30 minutes after IV potassium replacement completed.[id number] 13:49:00 Test Item Value Reference Range Interpretation Comments PHOSPHORUS (BEAKER) (test code = 3.1 mg/dL 2.3-4.7 604) Ship Propeller Finisher ID - EDASICheck Serum Phosphorus level 4 hours after IV phosphorus replacement.Check Serum Potassium level 30 minutes after IV potassium replacement completed.[id number] 07:09:00 Test Item Value Reference Range Interpretation Comments Amylase (test code = 159 U/L 25-125 H 1798-8) SOFY (test code = SOFY) [employer] ID - DBSpecimen slightly icteric Lab Interpretation (test Abnormal code = 84408-3) [facility] Test Item Value Reference Range Interpretation Comments AMYLASE (BEAKER) (test code = 349) 159 U/L 25-125 H [employer] ID - DBSpecimen slightly [id number] 05:31:00 Test Item Value Reference Range Interpretation Comments Ethanol Lvl (test code = <10 <=10 mg/dL 5643-2) SOFY (test code = SOFY) [employer] ID - DB Lab Interpretation (test Normal code = 95243-0) [facility] 05:[facility]00 Test Item Value Reference Range Interpretation Comments ETHANOL (BEAKER) (test code = 400) < mg/dL <=10 [employer] ID - DBT4, [id number] 05:29:00 Test Item Value Reference Range Interpretation Comments Free T4 (test code = 0.99 ng/dL 0.7-1.48 3024-7) SOFY (test code = SOFY) [employer] ID - EDASI Lab Interpretation (test Normal code = 68451-7) [facility] 05:[facility]00 Test Item Value Reference Range Interpretation Comments TSH (test code = 2.475 0.350- 4.940 uIU/mL 31278-0) SOFY (test code = SOFY) [employer] ID - EDASI Lab Interpretation (test Normal code = 83744-2) [facility], [id number] 05:29:00 Test Item Value Reference Range Interpretation Comments FREE T4 (BEAKER) (test code = 655) 0.99 ng/dL 0.70-1.48 [employer] ID - [id number] 05:29:00 Test Item Value Reference Range Interpretation Comments THYROID STIMULATING HORMONE 2.475 uIU/mL 0.350-4.940 (BEAKER) (test code = 772) [employer] ID - EDASIBASIC METABOLIC [id number] 05:24:00 Test Item Value Reference Range Interpretation Comments SODIUM (BEAKER) 133 meq/L 136-145 L (test code = 381) POTASSIUM (BEAKER) 3.1 meq/L 3.5-5.1 L (test code = 379) CHLORIDE (BEAKER) 102 meq/L 98-107 (test code = 382) CO2 (BEAKER) (test 23 meq/L 22-29 code = 355) BLOOD UREA NITROGEN 10 mg/dL 7-21 (BEAKER) (test code = 354) CREATININE (BEAKER) 0.87 mg/dL 0.57-1.25 (test code = 358) GLUCOSE RANDOM 107 mg/dL 70-105 H (BEAKER) (test code = 652) CALCIUM (BEAKER) 7.9 mg/dL 8.4-10.2 L (test code = 697) EGFR (BEAKER) (test 90 mL/min/1.73 ESTIMA KELLY GFR IS code = 1092) sq m NOT ACCURATE CREATININE CLEARANCE IN PREDICTING GLOMERULAR FILTRATION RATE . ESTIMATED GFR I S NOT APPLICABLE FOR DIALYSIS PATIEN TS. [employer] ID - DBSpecimen slightly [id number] 05:22:00 Test Item Value Reference Range Interpretation Comments PHOSPHORUS (BEAKER) (test code = 2.5 mg/dL 2.3-4.7 604) [employer] ID - [id number] 05:22:00 Test Item Value Reference Range Interpretation Comments MAGNESIUM (BEAKER) (test code = 1.5 mg/dL 1.6-2.6 L 627) [employer] ID - DBCBC W/PLT COUNT & AUTO [id number] 04:29:00 Test Item Value Reference Range Interpretation Comments WHITE BLOOD CELL COUNT (BEAKER) 7.4 K/ L 3.5-10.5 (test code = 775) RED BLOOD CELL COUNT (BEAKER) 3.26 M/ L 4.63-6.08 L (test code = 761) HEMOGLOBIN (BEAKER) (test code = 11.5 GM/DL 13.7-17.5 L 410) HEMATOCRIT (BEAKER) (test code = 33.0 % 40.1-51.0 L 411) MEAN CORPUSCULAR VOLUME (BEAKER) 101.2 fL 79.0-92.2 H (test code = 753) MEAN CORPUSCULAR HEMOGLOBIN 35.3 pg 25.7-32.2 H (BEAKER) (test code = 751) MEAN CORPUSCULAR HEMOGLOBIN CONC 34.8 GM/DL 32.3-36.5 (BEAKER) (test code = 752) RED CELL DISTRIBUTION WIDTH 12.1 % 11.6-14.4 (BEAKER) (test code = 412) PLATELET COUNT (BEAKER) (test 114 K/CU MM 150-450 L code = 756) MEAN PLATELET VOLUME (BEAKER) 12.8 fL 9.4-12.4 H (test code = 754) NUCLEATED RED BLOOD CELLS 0 /100 WBC 0-0 (BEAKER) (test code = 413) NEUTROPHILS RELATIVE PERCENT 58 % (BEAKER) (test code = 429) LYMPHOCYTES RELATIVE PERCENT 30 % (BEAKER) (test code = 430) MONOCYTES RELATIVE PERCENT 8 % (BEAKER) (test code = 431) EOSINOPHILS RELATIVE PERCENT 3 % (BEAKER) (test code = 432) BASOPHILS RELATIVE PERCENT 1 % (BEAKER) (test code = 437) NEUTROPHILS ABSOLUTE COUNT 4.28 K/ L 1.78-5.38 (BEAKER) (test code = 670) LYMPHOCYTES ABSOLUTE COUNT 2.21 K/ L 1.32-3.57 (BEAKER) (test code = 414) MONOCYTES ABSOLUTE COUNT (BEAKER) 0.62 K/ L 0.30-0.82 (test code = 415) EOSINOPHILS ABSOLUTE COUNT 0.21 K/ L 0.04-0.54 (BEAKER) (test code = 416) BASOPHILS ABSOLUTE COUNT (BEAKER) 0.09 K/ L 0.01-0.08 H (test code = 417) IMMATURE GRANULOCYTES-RELATIVE 0 % 0-1 PERCENT (BEAKER) (test code = 2801) SARS-CoV2/RT-PCR (Symptomatic ONLY)2019-12-02 03:50:00 Test Item Value Reference Range Interpretation Comments SARS-COV2/RT-PCR Negative Not Detected, (test code = Negative, See 24541-0) external report for linked test SARS-COV-2 [facility] PERFORMING LAB (test code = 57371-1) SOFY (test code = Negative results do not SOFY) preclude SARS-CoV-2 infection and should not be used as [...] of the Act. Fact Sheet for Healthcare Providers:https://www.[employer]Documents/Xper t%20Xpress%20SARS%20CoV- 2/Fact%20Sheets/302-4809 %47LKEG-MEB-5%20HEALTHCA RE%20PROVIDERS%20FACT%20 SHEET.pdf Fact Sheet for Healthcare Patients:https://www.[employer]/Documents/Xpert %20Xpress%20SARS%20CoV-2 /Fact%20Sheets/302-3801% 28DXLU-IMD-8%20PATIENT%2 0FACT%20SHEET.pdf Performing Laboratory:[facility] [place] [address] [facility])2019-12-02 03:50:00 Test Item Value Reference Range Interpretation Comments SARS-COV2/RT-PCR (test code Negative Not Detected, Negative, = 3332815) See external report for linked test SARS-COV-[address] [facility] (test code = 1229481) Negative results do not preclude SARS-CoV-2 infection and should not be used as the sole basis for patient management decisions. Negative results must be combined with clinical observations, patient history, and epidemiological information. A false negative result may occur if a specimen is improperly collected, transported or handled.The limit of detection for this assay is 250 copies/mL.This SARS CoV-2 test is a rapid, real-time RT-PCR test intended for the qualitative detection of nucleic acid from SARS-CoV-2 in a nasopharyngeal swab specimen collected from individuals suspected of COVID-19 by their healthcare provider.This test has not been Food and Drug [...] is revoked under Section 564(g) of the Act.Fact Sheet for Healthcare Pro viders:https://www.[employer]./Documents/Xpert%20Xpress%20SARS%20CoV-2/Fact%20Sh eets/302-3802%92NBTU-RAR-7%20HEALTHCARE%20PROVIDERS%20FACT%20SHEET.pdfFact Sheet for Healthcare Patients:https://www.[employer]/Documents/Xpert%20Xpress%20SARS%20CoV-2/Fact%20Sheets/302-3801%20SARS-COV -2%20PATIENT%20FACT%20SHEET.pdfPerforming Laboratory:[facility], [place] [id number] 03:30:00 Test Item Value Reference Range Interpretation Comments PHOSPHORUS (BEAKER) (test code = 2.8 mg/dL 2.3-4.7 604) [employer] ID - [id number] 01:39:00 Test Item Value Reference Range Interpretation Comments Lipase (test code = 264 U/L 8-78 H 3040-3) SOFY (test code = SOFY) [employer] ID - DBSpecimen slightly icteric Lab Interpretation (test Abnormal code = 98746-9) [facility]00 Test Item Value Reference Range Interpretation Comments MAGNESIUM (BEAKER) (test code = 1.5 mg/dL 1.6-2.6 L 627) [employer] ID - DBHEPATIC FUNCTION [id number] 01:39:00 Test Item Value Reference Range Interpretation Comments TOTAL PROTEIN (BEAKER) (test code = 7.3 gm/dL 6.0-8.3 770) ALBUMIN (BEAKER) (test code = 1145) 3.3 g/dL 3.5-5.0 L BILIRUBIN TOTAL (BEAKER) (test code 2.8 mg/dL 0.2-1.2 H = 377) BILIRUBIN DIRECT (BEAKER) (test 1.8 mg/dL 0.1-0.5 H code = 706) ALKALINE PHOSPHATASE (BEAKER) (test 125 U/L 40-150 code = 346) AST (SGOT) (BEAKER) (test code = 183 U/L 5-34 H 353) ALT (SGPT) (BEAKER) (test code = 57 U/L 6-55 H 347) [employer] ID - DBSpecimen slightly [id number] 01:39:00 Test Item Value Reference Range Interpretation Comments LIPASE (BEAKER) (test code = 749) 264 U/L 8-78 H [employer] ID - DBSpecimen slightly ictericBASIC METABOLIC [id number] 01:39:00 Test Item Value Reference Range Interpretation Comments SODIUM (BEAKER) 134 meq/L 136-145 L (test code = 381) POTASSIUM (BEAKER) 3.2 meq/L 3.5-5.1 L (test code = 379) CHLORIDE (BEAKER) 102 meq/L 98-107 (test code = 382) CO2 (BEAKER) (test 24 meq/L 22-29 code = 355) BLOOD UREA NITROGEN 11 mg/dL 7-21 (BEAKER) (test code = 354) CREATININE (BEAKER) 0.95 mg/dL 0.57-1.25 (test code = 358) GLUCOSE RANDOM 122 mg/dL 70-105 H (BEAKER) (test code = 652) CALCIUM (BEAKER) 7.9 mg/dL 8.4-10.2 L (test code = 697) EGFR (BEAKER) (test 81 mL/min/1.73 ESTIMA KELLY GFR IS code = 1092) sq m NOT ACCURATE CREATININE CLEARANCE IN PREDICTING GLOMERULAR FILTRATION RATE . ESTIMATED GFR I S NOT APPLICABLE FOR DIALYSIS PATIEN TS. [employer] Finisher ID - DBSpecimen slightly ictericPROTHROMBIN TIME/[id number] 01:18:00 Test Item Value Reference Range Interpretation Comments PROTIME (BEAKER) (test code = 14.8 seconds 11.9-14.2 H 759) INR (BEAKER) (test code = 370) 1.19 <=5.90 Effective 09/11/2018: PT Reference Range ChangeNew: 11.9-14.2 Previous: 11.7- 14.7RECOMMENDED COUMADIN/WARFARIN INR THERAPY RANGESSTANDARD DOSE: 2.0-3.0 Includes: PROPHYLAXIS for venous thrombosis, systemic embolization; TREATMENT for venous thrombosis and/or pulmonary embolus.HIGH RISK: Target INR is2.5-3.5 for patients wiht mechanical heart valves.CBC with platelet count + manual diff 2019-12-02 01:11:00 Test Item Value Reference Range Interpretation Comments WBC (test code = 6690-2) 8.1 3.5- 10.5 K/L RBC (test code = 789-8) 3.62 4.63- 6.08 M/L L MCHC (test code = 786-4) 35.1 32.3- 36.5 GM/DL L Hematocrit (test code = 4544-3) 36.5 % 40.1-51 L MCV (test code = 787-2) 100.8 fL 79-92.2 H MCH (test code = 785-6) 35.4 pg 25.7-32.2 H RDW (test code = 788-0) 12.1 % 11.6-14.4 Platelets (test code = 777-3) 117 150- 450 K/CU MM L MPV (test code = 15427-9) 12.4 fL 9.4-12.4 nRBC (test code = 413) 0 0- 0 /100 WBC Lab Interpretation (test code = Abnormal 48258-1) [facility] W/PLT COUNT & AUTO [id number] 01:11:00 Test Item Value Reference Range Interpretation Comments WHITE BLOOD CELL COUNT (BEAKER) 8.1 K/ L 3.5-10.5 (test code = 775) RED BLOOD CELL COUNT (BEAKER) 3.62 M/ L 4.63-6.08 L (test code = 761) HEMOGLOBIN (BEAKER) (test code = 12.8 GM/DL 13.7-17.5 L 410) HEMATOCRIT (BEAKER) (test code = 36.5 % 40.1-51.0 L 411) MEAN CORPUSCULAR VOLUME (BEAKER) 100.8 fL 79.0-92.2 H (test code = 753) MEAN CORPUSCULAR HEMOGLOBIN 35.4 pg 25.7-32.2 H (BEAKER) (test code = 751) MEAN CORPUSCULAR HEMOGLOBIN CONC 35.1 GM/DL 32.3-36.5 (BEAKER) (test code = 752) RED CELL DISTRIBUTION WIDTH 12.1 % 11.6-14.4 (BEAKER) (test code = 412) PLATELET COUNT (BEAKER) (test 117 K/CU MM 150-450 L code = 756) MEAN PLATELET VOLUME (BEAKER) 12.4 fL 9.4-12.4 (test code = 754) NUCLEATED RED BLOOD CELLS 0 /100 WBC 0-0 (BEAKER) (test code = 413) NEUTROPHILS RELATIVE PERCENT 63 % (BEAKER) (test code = 429) LYMPHOCYTES RELATIVE PERCENT 29 % (BEAKER) (test code = 430) MONOCYTES RELATIVE PERCENT 5 % (BEAKER) (test code = 431) EOSINOPHILS RELATIVE PERCENT 2 % (BEAKER) (test code = 432) BASOPHILS RELATIVE PERCENT 1 % (BEAKER) (test code = 437) NEUTROPHILS ABSOLUTE COUNT 5.09 K/ L 1.78-5.38 (BEAKER) (test code = 670) LYMPHOCYTES ABSOLUTE COUNT 2.35 K/ L 1.32-3.57 (BEAKER) (test code = 414) MONOCYTES ABSOLUTE COUNT (BEAKER) 0.40 K/ L 0.30-0.82 (test code = 415) EOSINOPHILS ABSOLUTE COUNT 0.17 K/ L 0.04-0.54 (BEAKER) (test code = 416) BASOPHILS ABSOLUTE COUNT (BEAKER) 0.08 K/ L 0.01-0.08 (test code = 417) IMMATURE GRANULOCYTES-RELATIVE 0 % 0-1 PERCENT (BEAKER) (test code = 2801) CBC WITH PLATELET COUNT + MANUAL [id number] 01:11:00 Test Item Value Reference Range Interpretation Comments WHITE BLOOD CELL COUNT (BEAKER) 8.1 K/ L 3.5-10.5 (test code = 775) RED BLOOD CELL COUNT (BEAKER) 3.62 M/ L 4.63-6.08 L (test code = 761) HEMOGLOBIN (BEAKER) (test code = 12.8 GM/DL 13.7-17.5 L 410) HEMATOCRIT (BEAKER) (test code = 36.5 % 40.1-51.0 L 411) MEAN CORPUSCULAR VOLUME (BEAKER) 100.8 fL 79.0-92.2 H (test code = 753) MEAN CORPUSCULAR HEMOGLOBIN 35.4 pg 25.7-32.2 H (BEAKER) (test code = 751) MEAN CORPUSCULAR HEMOGLOBIN CONC 35.1 GM/DL 32.3-36.5 (BEAKER) (test code = 752) RED CELL DISTRIBUTION WIDTH 12.1 % 11.6-14.4 (BEAKER) (test code = 412) PLATELET COUNT (BEAKER) (test 117 K/CU MM 150-450 L code = 756) MEAN PLATELET VOLUME (BEAKER) 12.4 fL 9.4-12.4 (test code = 754) NUCLEATED RED BLOOD CELLS 0 /100 WBC 0-0 (BEAKER) (test code = 413)
--- OUTSIDE RECORDS SUMMARY | 2020-03-06 09:25 | XMS REPORT | Summary of Care ---
:1960 Author Organization [facility] - Health Address [address] [place] [address] Care Team Providers Name Role Phone MD Rosa Primary Care Provider Encounter Details Date Type Department Care Team Description 02/24/2020 Orders Only [facility] Doctor Unassigned, No [address] [facility] [place] [place] [address] [address] [place] [address] Allergies No Known Allergiesdocumented as of this encounter (statuses as of 02/24/2020) Medications Medication Sig Dispensed Refills Start Date [...] as of this encounter (statuses as of 02/24/2020) Active Problems Problem Noted Date Acute alcoholic [...] as of this encounter (statuses as of 02/24/2020) Social History Tobacco Use Types Packs/Day Years Used Date Current Every Day Smoker Cigarettes 1 40 Smokeless Tobacco: Never Used Alcohol Use Drinks/Week oz/Week Comments Yes Alcohol Habits Answer Date Recorded How often do you have a drink containing 4 or more times a w [place] 03/23/2019 alcohol? How many drinks containing alcohol do you have 7 to 9 03/23/2019 on a typical day when you are drinking? How often do you have six or more drinks on one Daily or toya ost daily 03/23/2019 occasion? Sex Assigned at Date Recorded Not on file documented as of this encounter Last Filed Vital Signs Not on filedocumented in this encounter Plan of Treatment Health Maintenance Due Date Last Done Comments PNEUMOCOCCAL 0-64 YEARS COMBINED SERIES (1 of - 1967 PPSV23) Depression Screening 1973 DTaP,Tdap,and Td Vaccines (1 - Tdap) 01/08/1980 COLON CANCER SCREENING ANNUAL FIT/FOBT 2011 COLON CANCER SCREENING FIT DNA EVERY 3 YEARS 2011 COLON CANCER SCREENING SIGMOIDOSCOPY EVERY 5 YEARS 2011 COLONOSCOPY 2011 Colorectal Cancer Screening 2011 Zoster Recombinant Vaccine (SHINGRIX) (1 of 2) 2011 LUNG CANCER SCREEN: Recommended for age 55-80 with 30 01/08/2016 + pack year history INFLUENZA VACCINE (#1) 2019 HEPATITIS C (HCV) SCREEN Completed 08/07/2018 documented as of this encounter Procedures Procedure Name Priority Date/Time Associated Diagnosis Comme nts CONSENT/REFUSAL FOR Routine 02/24/2020 9:21 AM MAIL ROOM DIAGNOSIS AND TREATMENT documented in this encounter Results Not on filedocumented in this encounter Insurance Payer Benefit Plan / Subscriber ID Effective Phone Address T ype Group Dates [employer] [id number] [address] [place] [id number] [place] [address] documented as of this encounter
--- OUTSIDE RECORDS SUMMARY | 2020-03-06 09:25 | XMS REPORT | Summary of Care ---
:1960 Author Organization [facility] - Health Address [address] [place] [address] Care Team Providers Name Role Phone MD Rosa Primary Care Provider Encounter Details Date Type Department Care Team Description 11/20/2019 Orders Only [facility] Doctor Unassigned, No [address] [facility] [place] [address] [address] [place] [address] Allergies No Known Allergiesdocumented as of this encounter (statuses as of 01/26/2020) Medications Medication Sig Dispensed Refills Start Date [...] as of this encounter (statuses as of 01/26/2020) Active Problems Problem Noted Date Acute alcoholic [...] as of this encounter (statuses as of 01/26/2020) Social History Tobacco Use Types Packs/Day Years Used Date Current Every Day Smoker Cigarettes 1 40 Smokeless Tobacco: Never Used Alcohol Use Drinks/Week oz/Week Comments Yes Alcohol Habits Answer Date Recorded How often do you have a drink containing 4 or more times a w [place] 03/23/2019 alcohol? How many drinks containing alcohol [...] Name Priority Date/Time Associated Diagnosis Comme nts INSURANCE CORRESPONDENCE Routine 11/20/2019 12:01 AM CDT documented in this encounter Results Not on filedocumented in this encounter Insurance Payer Benefit Plan / Subscriber ID Effective Phone Address T ype Group Dates [employer] [id number] [address] [place] [address] [place] [address] documented as of this encounter
--- OUTSIDE RECORDS SUMMARY | 2020-03-06 09:25 | XMS REPORT | Summary of Care ---
:1960 Author Organization [facility] - Health Address [address] [place] [address] Care Team Providers Name Role Phone MD Rosa Primary Care Provider Encounter Details Date Type Department Care Team Description 01/09/2020 Orders Only [facility] Doctor Unassigned, No [address] [facility] [place] [address] [address] [place] [address] Allergies No Known Allergiesdocumented as of this encounter (statuses as of 02/12/2020) Medications Medication Sig Dispensed Refills Start Date [...] as of this encounter (statuses as of 02/12/2020) Active Problems Problem Noted Date Acute alcoholic [...] as of this encounter (statuses as of 02/12/2020) Social History Tobacco Use Types Packs/Day Years Used Date Current Every Day Smoker Cigarettes 1 40 Smokeless Tobacco: Never Used Alcohol Use Drinks/Week oz/Week Comments Yes Alcohol Habits Answer Date Recorded How often do you have a drink containing 4 or more times a w [place] 03/23/2019 alcohol? How many drinks containing alcohol [...] Associated Diagnosis Comme nts INSURANCE CORRESPONDENCE Routine 01/09/2020 12:01 AM CDT documented in this encounter Results Not on filedocumented in this encounter Insurance Payer Benefit Plan / Subscriber ID Effective Phone Address T ype Group Dates [employer] [id number] [address] [place] [id number] [place] [address] documented as of this encounter
--- OUTSIDE RECORDS SUMMARY | 2020-03-06 09:26 | XMS REPORT | Summary of Care ---
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 Take 1 tablet by mouth daily. LIDOCAINE 5 % (700 MG/PATCH) PATCH Apply 1 Patch to area(s) daily. LISINOPRIL 30 MG TABLET Take 1 tablet by mouth daily. MAGNESIUM OXIDE 420 MG TAB Take 400 mg by mouth 2 (two) times daily. NIFEDIPINE ER 30 MG TABLET TAKE 1 TABLET BY MOUTH EVERY DAY PANTOPRAZOLE 40 MG EC TABLET Take 1 tablet by mouth daily. THIAMINE 100 MG TABLET Take 1 tablet by mouth daily. VENLAFAXINE XR 37.5 MG 24 HR CAPSULE TAKE 1 CAPSULE BY MOUTH EVERY DAY WITH BREAKFAST START taking Modified Medications as Prescribed No medications on file STOP taking these medications No medications on file Contact information for follow-up Kye Lee MD Specialty: FM-FAMILY MEDICINE Relationship: PCP - General [facility] [address] [place] [address] Dr Clifford [address] [facility] [address] ADC-Emergency Department Specialty: Emergency Medicine [address] [facility] [address] Instructions: If symptoms worsen as documented in the discharge Alcides Burgos DO 02/24/2020 9:51 AM ACTIVE COVID-19 PANDEMIC. documented in this encounter Miscellaneous Notes ED Nurse Note - Rosie Tanner, RN - 02/24/2020 3:31 PM CSTCMC gave ETA of 20 minutes with [facility]. D Nurse Note - Rosie Tanner, RN - 02/24/2020 1:29 PM CSTPt given printed and verbal discharge instructions regarding alcohol abuse, epigastric painencouraged hydration. Prescriptions provided. Discussedlibrium side affects and to avoid driving/operating machinery/or engaging in activities requiring alertness while taking. Pt verbalized understanding of instructions, pt awake alert oriented, resp reg unlabored, skin w/d, color appropriate for race, moves all ext well,pt encouraged to follow up with PCP. Advised to seek medical attention for new/prolonged/worsening of symptoms. No adverse reaction to meds given in ER noted upon discharge. PIV d'cd, dressing to site, catheter in tact. Awake, alert oriented, resp reg unlabored, skin w/d, pt leaving amb with steady gait, in no apparent distress, D Nurse Note - Haylee Fernandez RN - 02/24/2020 9:43 AM CSTPt reports cervical tenderness on palpation. Dr. Burgos notified. C-collar placed. documented in this encounter Plan of Treatment Name Type Priority Associated Diagnoses Date/Ti me LAB ONLY COVID LAB STAT Epigastric pain 02/24/2020 9:45 AM INTERPRETATION EXPANDED FUNCTION DENTAL ASSISTANT Name Type Priority Associated Diagnoses Order S chedule LAB ONLY COVID LAB Routine Epigastric pain ONCE for 1 Occurrences INTERPRETATION starting 02/14 until 0 Health Maintenance Due Date Last Done Comments [...] Name Priority Date/Time Associated Diagnosis Comme nts CT ABDOMEN PELVIS W Routine 02/24/2020 10:14 AM Epigastric marlene n Results for this CONTRAST EXPANDED FUNCTION DENTAL ASSISTANT procedure are i n the results section. CT HEAD WO CONTRAST STAT 02/24/2020 10:12 AM Epigastric marlene n Results for this EXPANDED FUNCTION DENTAL ASSISTANT procedure are i n the results section. CT CERVICAL SPINE STAT 02/24/2020 10:12 AM Epigastric pain Results for this WO CONTRAST EXPANDED FUNCTION DENTAL ASSISTANT procedure are i n the results section. VBG+VCOOX+NA+K+GLU+ STAT 02/24/2020 9:47 AM Epigastric marlene n Results for this CA2+ EXPANDED FUNCTION DENTAL ASSISTANT procedure are i n the results section. COVID-19 (ID NOW STAT 02/24/2020 9:45 AM Epigastric pain R esults for this RAPID TESTING) EXPANDED FUNCTION DENTAL ASSISTANT procedure are in the results section. CBC WITH DIFF STAT 02/24/2020 9:45 AM Epigastric pain Resu lts for this EXPANDED FUNCTION DENTAL ASSISTANT procedure are i n the results section. ETHANOL STAT 02/24/2020 9:45 AM Epigastric pain Resul ts for this EXPANDED FUNCTION DENTAL ASSISTANT procedure are i n the results section. LIPID PANEL STAT 02/24/2020 9:45 AM Epigastric pain Resul ts for this ([id number])(TOTAL EXPANDED FUNCTION DENTAL ASSISTANT procedure are in CHOLESTEROL, the results TRIGLYCERIDES, HDL) section. COMP. METABOLIC STAT 02/24/2020 9:45 AM Epigastric pain Re sults for this PANEL ([id number]) EXPANDED FUNCTION DENTAL ASSISTANT procedure are in the results section. LIPASE STAT 02/24/2020 9:45 AM Epigastric pain Resul ts for this EXPANDED FUNCTION DENTAL ASSISTANT procedure are i n the results section. NOTICE OF PRIVACY Routine 02/24/2020 9:21 AM PRACTICES EXPANDED FUNCTION DENTAL ASSISTANT documented in this encounter Results CT ABDOMEN PELVIS W CONTRAST (02/24/2020 10:14 AM EXPANDED FUNCTION DENTAL ASSISTANT) Specimen Narrative Performed At CT Abdomen and Pelvis with intravenous c ontrast. PACS/VR/DOSE CLINICAL HISTORY: Abdominal infection in cluding peritonitis. DOSE: Up-to-date CT equipment and radiation dose reduc tion techniques were employed. CTDIvol: 10.71 mGy. DLP: 1052 mGy-cm. TECHNIQUE : Contiguous axial imaging fro m the level of the lung bases through the pubic symphysis were perform ed after the uncomplicated administration of Omnipaque contrast mat erial. Coronal and sagittal reconstructions were obtained. Auto mA and/or iterativ e reconstruction were used to reduce radiation dose. FINDINGS: Lower lungs: Multiple old fractures of left ribs, some fracture supported by metallic hardware. Clear lower visualized lungs. No pleural effusion or pericardial effusion. Short sliding hiat al hernia noted. Liver, Gallbladder and Spleen: Liver is approximately 19 cm in length and showed diffuse mild hepatic steatosis. Cholecystectomy noted. Biliary ducts and the pancreatic duct appear of normal size. Spleen measures approximately 10 x 4.4 c m in size. Peritoneum: No free air or free fluid. No lymphadenopathy. Pancreas and Adrenals: Unremarkable pa ncreas and adrenal glands. Kidneys and Ureters: No visible calculi in the renal collecting systems. No hydroureter or hydronephrosis. Vessels: Diffuse atherosclerosis in the aorta and iliac arteries. Retroperitoneum: No abnormal fluid or ly mphadenopathy. Bowel: Diverticulosis of the sigmoid and descending co jeffry with additional scattered diverticula suspected through rest of large bowel without any focal changes of acute diverticulitis. N ormal appendix is visualized. Bladder and Reproductive Organs: Thicken ed bladder mccray could be due to incomplete luminal distention. Otherwise grossly unremarkable, under distended and unopacified urinary bladde r. Bones: No acute findings. Soft tissues: Scar tissue noted in the umbilical regio n and right lower as well as upper anterior abdominal wall, p erhaps from a prior laparoscopic cholecystectomy surgery. Right paramidline epigastric hernia not ed with intra-abdominal fat and blood vessels without any evidence of st rangulation or incarceration. Additional smaller hernia also noted in the left para midline supraumbilical region of the abdominal w all. Small indirect type bilateral fat-contai kalin inguinal hernias noted. CONCLUSION: 1. No acute intra-abdominal or pelvic ab normalities detected. 2. Hepatomegaly with hepatic steatosis. 3. S/P cholecystectomy. Procedure Note [facility], Radiant Results Inft User - 2019 10:28 AM EXPANDED FUNCTION DENTAL ASSISTANT CT Abdomen and Pelvis with intravenous contrast. CLINICAL HISTORY: Abdominal infection in cluding peritonitis. DOSE: Up-to-date CT equipment and radiat ion dose reduction techniques were employed. CTDIvol: 10.71 mGy. DLP: 1052 mGy-cm. TECHNIQUE : Contiguous axial imaging fro m the level of the lung bases through the pubic symphysis were perform ed after the uncomplicated administration of Omnipaque contrast mat erial. Coronal and sagittal reconstructions were obtained. Auto mA a nd/or iterative reconstruction were used to reduce radiation dose. FINDINGS: Lower lungs: Multiple old fractures of l eft ribs, some fracture supported by metallic hardware. Clear lower visual ized lungs. No pleural effusion or pericardial effusion. Short sliding hiat al hernia noted. Liver, Gallbladder and Spleen: Liver is approximately 19 cm in length and showed diffuse mild hepatic steatosis. C holecystectomy noted. Biliary ducts and the pancreatic duct appear of normal size. Spleen measures approximately 10 x 4.4 c m in size. Peritoneum: No free air or free fluid. No lymphadenopathy. Pancreas and Adrenals: Unremarkable felix creas and adrenal glands. Kidneys and Ureters: No visible calculi in the renal collecting systems. No hydroureter or hydronephrosis. Vessels: Diffuse atherosclerosis in the aorta and iliac arteries. Retroperitoneum: No abnormal fluid or ly mphadenopathy. Bowel: Diverticulosis of the sigmoid and descending colon with additional scattered diverticula suspected through rest of large bowel without any focal changes of acute diverticulitis. N ormal appendix is visualized. Bladder and Reproductive Organs: Thicken ed bladder mccray could be due to incomplete luminal distention. Otherwise grossly unremarkable, under distended and unopacified urinary bladde r. Bones: No acute findings. Soft tissues: Scar tissue noted in the u mbilical region and right lower as well as upper anterior abdominal wall, p erhaps from a prior laparoscopic cholecystectomy surgery. Right paramidline epigastric hernia not ed with intra-abdominal fat and blood vessels without any evidence of st rangulation or incarceration. Additional smaller hernia also noted in the left para midline supraumbilical region of the abdominal w all. Small indirect type bilateral fat-contai kalin inguinal hernias noted. CONCLUSION: 1. No acute intra-abdominal or pelvic ab normalities detected. 2. Hepatomegaly with hepatic steatosis. 3. S/P cholecystectomy. Performing Organization Address City/State/Zipcode Phone Number PACS/VR/DOSE CT HEAD WO CONTRAST (02/24/2020 10:12 AM EXPANDED FUNCTION DENTAL ASSISTANT) Specimen Impressions Performed At PACS/VR/DOSE No acute intracranial abnormality. Air-fluid level with area to secretions noted in the l eft maxillary sinus suggestive of acute sinusitis in the appropriate clini rajan setting. Narrative Performed At EXAM: CT HEAD WO CONTRAST PACS/VR/DOSE HISTORY: Head trauma, minor, GCS>=13, hi clinical risk, initial exam TECHNIQUE: CT of the head was performed without intravenous contrast. Sagittal and coronal reformats were gene rated. COMPARISON: CT head date. FINDINGS: The ventricles and sulci are normal in c aliber and configuration. No hydrocephalus, midline shift or pathological extra-axi al fluid collection is present. The basal cisterns are unrem arkable. There is no acute intracranial hemorrhag e or significant mass effect. No parenchymal attenuation abnormality. The leos-white ma tter differentiation is preserved. Dehiscence of right lamina papyracea noted. Aerated se cretions are noted in the left maxillary sinus with air-fluid levels. Retent ion cyst noted in the right frontal sinus The mastoid air cell s are clear. The calvarium and central skull base are unremarkable. Procedure Note [facility], Radiant Results Inft User - 2019 10:23 AM EXPANDED FUNCTION DENTAL ASSISTANT EXAM: CT HEAD WO CONTRAST HISTORY: Head trauma, minor, GCS>=13, [facility] clinical risk, initial exam TECHNIQUE: CT of the head was performed without intravenous contrast. Sagittal and coronal reformats were gene rated. COMPARISON: CT head date. FINDINGS: The ventricles and sulci are normal in c aliber and configuration. No hydrocephalus, midline shift or patholog ical extra-axial fluid collection is present. The basal cisterns are unrem arkable. There is no acute intracranial hemorrhag e or significant mass effect. No parenchymal attenuation abnormality. The leos-white matter differentiation is preserved. Dehiscence of right lamina papyracea not ed. Aerated secretions are noted in the left maxillary sinus with air-fluid levels. Retention cyst noted in the right frontal sinus The mastoid air cell s are clear. The calvarium and central skull base are unremarkable. IMPRESSION No acute intracranial abnormality. Air-fluid level with area to secretions noted in the left maxillary sinus suggestive of acute sinusitis in the ivana ropriate clinical setting. Performing Organization Address City/State/Zipcode Phone Number PACS/VR/DOSE CT CERVICAL SPINE WO CONTRAST (02/24/2020 10:12 AM EXPANDED FUNCTION DENTAL ASSISTANT) Specimen Narrative Performed At HISTORY: Trauma. PACS/VR/DOSE TECHNIQUE: 64-multidetector Sp[address] CT of the cervical spine is obtained and subsequently sagittal, coronal reformati ons are obtained. FINDINGS: No acute compression fracture detected. C3-C4: Grade 1 spondylolisthesis of C3 over C4, promin ent disc osteophyte complex along with hypertrophic left facet arthritis i s noted encroaching into the left side of the spinal canal causing left la teral spinal and mild foraminal stenosis. C4-C5: Moderate hypertrophic right facet arthropathy with mild foraminal encroachment. C5-C6: Moderate to severe degenerative d isc disease with prominent disc osteophyte complex along the ventral and dorsal verteb ral margins causing mild diffuse spinal stenosis and bilater al foraminal encroachment, left more than right. C6-C7: Mild degenerative changes in the ventral vertebral margins kit. Separate bony ossicle of for the tip of the spinous process could be developmental variation or residua of re mote trauma. Incidental note made of calcification in the nuchal li gament at the level of spinous process of C4 and C5, likely secondary to r emote flexion injury to the neck. No focal lesions are seen in the thyroid gland. Soft tissues in prevertebral region appe ar normal. However, cord or ligament or vascular injury can not be evaluated by th is study. Therefore, if there is persistent concern of cord o r nerve injury or neck pain/radiculopathy, MRI study should be obtained. CONCLUSIONS: 1. No acute displaced cervical spine fracture. Please see comments above. 2. Incidental note of atherosclerosis with heavily rajan cified plaques noted in carotid bulbs and in the proximal rig ht and left internal carotid arteries, possibly causing hemodynamical ly significant stenosis on both sides, more severe on the left side. 3. Incidental note of chronic left maxil melba sinusitis. Procedure Note [facility], Radiant Results Inft User - 2019 10:19 AM EXPANDED FUNCTION DENTAL ASSISTANT HISTORY: Trauma. TECHNIQUE: 64-multidetector Spiral CT of the cervical spine is obtained and subsequently sagittal, coronal reformati ons are obtained. FINDINGS: No acute compression fracture detected. C3-C4: Grade 1 spondylolisthesis of C3 o jessie C4, prominent disc osteophyte complex along with hypertrophic left fac et arthritis is noted encroaching into the left side of the spinal canal c ausing left lateral spinal and mild foraminal stenosis. C4-C5: Moderate hypertrophic right facet arthropathy with mild foraminal encroachment. C5-C6: Moderate to severe degenerative d isc disease with prominent disc osteophyte complex along the ventral and dorsal vertebral margins causing mild diffuse spinal stenosis and bilater al foraminal encroachment, left more than right. C6-C7: Mild degenerative changes in the ventral vertebral margins kit. Separate bony ossicle of for the tip of the spinous process could be developmental variation or residua of re mote trauma. Incidental note made of calcification in the nuchal ligament at the level of spinous process of C4 and C5, likely secondary to remote flexion injury to the neck. No focal lesions are seen in the thyroid gland. Soft tissues in prevertebral region appe ar normal. However, cord or ligament or vascular injury can not be e valuated by this study. Therefore, if there is persistent concern of cord o r nerve injury or neck pain/radiculopathy, MRI study should be obtained. CONCLUSIONS: 1. No acute displaced cervical spine fra cture. Please see comments above. 2. Incidental note of atherosclerosis wi th heavily calcified plaques noted in carotid bulbs and in the proximal rig ht and left internal carotid arteries, possibly causing hemodynamical ly significant stenosis on both sides, more severe on the left side. 3. Incidental note of chronic left maxil melba sinusitis. Performing Organization Address City/State/Zipcode Phone Number PACS/VR/DOSE [id number] (02/24/2020 9:47 AM EXPANDED FUNCTION DENTAL ASSISTANT) Pathologist Sig nature PH 7.48 (H) 7.32 - 7.42 [facility] PCO2 GERARDO 34 (L) 41 - 51 mmHg [facility] PO2 GERARDO 26 25 - 40 mmHg [facility] HCO3 GERARDO 25 24 - 28 mEq/L [facility] AC VBE(BEAKER) 1.9 mEq/L [facility] THB GERARDO 14.2 13.5 - 18.0 g/dL [facility] %O2HB GERARDO 54.9 52.0 - 63.0 % [facility] %COHB GERARDO 3.9 (H) 0.0 - 1.5 % [facility] %METHB GERARDO 0.1 (L) 0.4 - 1.5 % [facility] VOL%O2 GERARDO 10.9 6.0 - 12.0 % [facility] NA 137 135 - 145 mmol/L [facility] K+ 3.8 3.5 - 5.0 mmol/L [facility] AC CA IONZ 4.40 (L) 4.50 - 5.30 mg/dL [facility] GLUCOSE 130 (H) 70 - 110 mg/dL [facility] Specimen Blood - ARM, RIGHT Performing Organization Address [facility] [address] Phone Number [facility] CLIA: [id number] [place] [address] [place] [address] Drive COVID-19 (ID NOW RAPID TESTING) (02/24/2020 9:45 AM EXPANDED FUNCTION DENTAL ASSISTANT) SARS-CoV-2 Rapid ID Not Detected Not Detected [facility] Specimen Swab - NASOPHARYNGEAL SWAB Narrative Performed At ID NOW COVID-19 Assay is an isothermal nucleic [facility] acid amplification test intended for the qualitative detection of nucleic acid from SARS-CoV-2 viral RNA in nasopharyngeal (LEATHER SCRAPER) specimens. It is used under Emergency Use Authorization (EUA) by FDA. The limit of detection (LOD) of the assay is 125 Genome Equivalents/mL. A positive result is indicative of the presence of SARS-CoV-2 RNA. Clinical correlation with patient history and other diagnostic information is necessary to determine patient infection status. A negative (Not Detected) result does not preclude SARS-CoV-2 infection. In patients with clinical symptoms and other tests that are consistent with SARS-CoV-2 infection, negative results should be treated as presumptive negative and a new specimen should be tested with alternative PCR molecular test. Invalid: Please collect a new specimen for repeat patient testing if clinically indicated. Performing Organization Address [facility] [address]/[facility] Phone Number [facility] CLIA: [id number] [place] [address] ETHANOL (02/24/2020 9:45 AM EXPANDED FUNCTION DENTAL ASSISTANT) Pathologist Sig nature ALCOHOL <10 mg/dL [facility] Specimen Blood - ARM, RIGHT Narrative Performed At <10 Negative [facility] 50-100 Toxic >100 Depression of RESPIRATORY THERAPY DIRECTOR >400 Fatalities Reported Performing Organization Address [facility] [address]/[facility] [place] Phone Number [facility] CLIA: [id number] [place] [address] LIPID PANEL ([id number])(TOTAL CHOLESTEROL, TRIGLYCERIDES, HDL) (02/24/2020 9:45 AM EXPANDED FUNCTION DENTAL ASSISTANT) Pathologist Sig nature CHOL 138 120 - 200 mg/dL [facility] HDL 60 >40 mg/dL [facility] HDLC RATIO 2.3 <=5.0 [facility] TRIG 116 30 - 170 mg/dL [facility] LDL CHOL 55 <=160 mg/dL [facility] VLDL 23 5 - 60 mg/dL [facility] Specimen Blood - ARM, RIGHT Performing Organization Address [facility] [address]/[facility] [place] Phone Number [facility] CLIA: [id number] [place] [address] LIPASE (02/24/2020 9:45 AM EXPANDED FUNCTION DENTAL ASSISTANT) Pathologist Sig nature LIPASE 52 0 - 220 U/L [facility] Specimen Blood - ARM, RIGHT Performing Organization Address [facility] [address]/[facility] [place] Phone Number [facility] CLIA: [id number] [place] [address] COMP. METABOLIC PANEL ([id number]) (02/24/2020 9:45 AM EXPANDED FUNCTION DENTAL ASSISTANT) Pathologist Sig nature NA 136 135 - 145 [facility] mmol/L [facility] K 3.6 3.5 - 5.0 [facility] mmol/L [facility] CL 103 98 - 108 mmol/L [facility] CO2 TOTAL 26 23 - 31 mmol/L [facility] AGAP 7 2 - 16 [facility] BUN 3 (L) 7 - 23 mg/dL [facility] GLUCOSE 132 (H) 70 - 110 mg/dL [facility] CREATININE 0.83 0.60 - 1.25 [facility] mg/dL [facility] TOTAL BILI 1.6 (H) 0.1 - 1.1 mg/dL [facility] CALCIUM 9.3 8.6 - 10.6 [facility] mg/dL [facility] T PROTEIN 7.8 6.3 - 8.2 g/dL [facility] ALBUMIN 3.7 3.5 - 5.0 g/dL [facility] ALK PHOS 241 (H) 34 - 122 U/L [facility] ALTv 86 (H) 5 - 50 U/L [facility] AST(SGOT) 240 (H) 13 - 40 U/L [facility] eGFR Calculation 94.8 mL/min/1.73m2 [facility] ([facility] [place]) eGFR Calculation 114.9 mL/min/1.73m2 [facility] () [facility] Specimen Blood - ARM, RIGHT Narrative Performed At [facility] of Glomerular Filtration Rate (GFR) [facility] and Staging of Kidney Disease* + + +- + | GFR (mL/min/1.73 m2) | With Kidney Damage | Without Kidney Damage + + +- + | >90 | Stage one | Normal + + +- + | 60-89 | Stage two | Decreased GFR + + +- + | 30-59 | Stage three | Stage three + + +- + | 15-29 | Stage four | Stage four + + +- + | <15 (or dialysis) | Stage five | Stage five + + +- + *Each stage assumes the associated GFR level has been in effect for at least three months. Stages 1 to 5, with or without kidney disease, indicate chronic kidney disease. Notes: Determination of stages one and two (with eGFR >59mL/min/1.73 m2) requires estimation of kidney damage for at least three months as defined by structural or functional abnormalities of the kidney, manifested by either: Pathological abnormalities or Markers of kidney damage (including abnormalities in the composition of the blood or urine or abnormalities in imaging tests). Performing Organization Address City/State/Zipcode Phone Number [facility] CLIA: [id number] [place] [address] CBC WITH DIFF (02/24/2020 9:45 AM EXPANDED FUNCTION DENTAL ASSISTANT) [facility] nature WBC 9.22 4.20 - 10.70 [facility] 10*3/L HOSPITAL LABORATORY RBC 3.74 (L) 4.26 - 5.52 [facility] 10*6/L HOSPITAL LABORATORY HGB 13.2 12.2 - 16.4 [facility] g/dL [facility] HCT 38.3 (L) 38.4 - 49.3 % [facility]ORATORY MCV 102.4 (H) 81.7 - 95.6 fL [facility] LABOR[facility] MCH 35.3 (H) 26.1 - 32.7 pg [facility] LABORATORY MCHC 34.5 31.2 - 35.0 [facility] g/dL [facility] RDW-SD 52.0 (H) 38.5 - 51.6 fL [facility] LAB[facility] RDW-CV 13.7 12.1 - 15.4 % [facility] LABORAT[facility] PLT 199 150 - 328 [facility] 10*3/L [facility] MPV 12.6 9.8 - 13.0 fL [facility] LABORATORY NRBC/100 WBC 0.0 0.0 - 10.0 /100 [facility] WBCs [facility] NRBC x10^3 <0.01 10*3/L [facility] LABORATORY GRAN MAT (NEUT) % 69.1 % [facility] LABORAT[facility] IMM GRAN % 0.30 % [facility] LYMPH % 20.8 % [facility] LAB[facility] MONO % 8.4 % [facility] LAB[facility] EOS % 0.3 % [facility] BASO % 1.1 % [facility] LABOR[facility] GRAN MAT x10^3(ANC) 6.37 1.99 - 6.95 [facility] 10*3/uL HOSPITAL LABORATORY IMM GRAN x10^3 0.03 0.00 - 0.06 [facility] 10*3/uL HOSPITAL LABORATORY LYMPH x10^3 1.92 1.09 - 3.23 [facility] 10*3/uL HOSPITAL LABORATORY MONO x10^3 0.77 0.36 - 1.02 [facility] 10*3/uL HOSPITAL LABORATORY EOS x10^3 0.03 (L) 0.06 - 0.53 [facility] 10*3/uL HOSPITAL LABORATORY BASO x10^3 0.10 (H) 0.01 - 0.09 [facility] 10*3/uL HOSPITAL LABORATORY Specimen Blood - ARM, RIGHT [facility] Organization Address City/State/Zipcode Phone Number [facility] CLIA: [id number] [place] [address] documented in this encounter Visit Diagnoses Diagnosis Epigastric pain - Primary Abdominal pain, epigastric Fall, initial encounter Alcohol abuse with withdrawal, uncomplic ated Alcoholic hepatitis without ascites Acute alcoholic hepatitis Polysubstance abuse Other, mixed, or unspecified nondependen t drug abuse, unspecified documented in this encounter Administered Medications Medication Order MAR Action Action Date Dose Rate Site morpHINE injection 4 mg Given 02/24/2020 10:21 AM EXPANDED FUNCTION DENTAL ASSISTANT 4 mg 4 mg, Slow IV Push, Q4HPRN, Starting Sun02/24/20 at 0940, Until Discontinued, Routine, Pain (scale 7-10) Medication Order MAR Action Action Date Dose Rate Site iohexol (OMNIPAQUE 350 BULK-150 Given 02/24/2020 10:08 AM EXPANDED FUNCTION DENTAL ASSISTANT 12 0 mL mL) injection 120 mL 120 mL, Intravenous, ONCE, 1 dose, Sun02/24/20 at 1015, Routine LORazepam (ATIVAN) injection 2 mg Given 02/24/2020 9:54 AM EXPANDED FUNCTION DENTAL ASSISTANT 2 mg 2 mg, Slow IV Push, ONCE, 1 dose, Sun02/24/20 at 1045, STAT NaCl 0.9% (NS) bolus infusion New Bag 02/24/2020 9:44 AM EXPANDED FUNCTION DENTAL ASSISTANT 1,000 mL 999 mL/hr 1,000 mL at 999 mL/hr, 1,000 mL, IV Infusion, ONCE, 1 dose, Sun02/24/20 at 0945, STAT NaCl 0.9% (NS) bolus infusion New Bag 02/24/2020 11:04 AM EXPANDED FUNCTION DENTAL ASSISTANT 1,000 mL 999 mL/hr 1,000 mL at 999 mL/hr, 1,000 mL, IV Piggyback, ONCE, 1 dose, Sun02/24/20 at 1200, STAT NaCl 0.9% (NS) bolus infusion New Bag 02/24/2020 12:46 PM EXPANDED FUNCTION DENTAL ASSISTANT 1,000 mL 999 mL/hr 1,000 mL at 999 mL/hr, 1,000 mL, IV Piggyback, ONCE, 1 dose, Sun02/24/20 at 1400, STAT ondansetron (ZOFRAN (PF)) injection 4 mg Given 02/24/2020 9:54 AM EXPANDED FUNCTION DENTAL ASSISTANT 4 mg 4 mg, Slow IV Push, ONCE, 1 dose, 02/24/20 at 1045, Routine oxazepam (SERAX) capsule 15 mg Given 02/24/2020 11:04 AM EXPANDED FUNCTION DENTAL ASSISTANT 15 mg 15 mg, Oral, ONCE, 1 dose, Sun02/24/20 at 1200, KAUR documented in this encounter Additional Health Concerns Infection Onset Date Last Indicated Resolved Time COVID-19 Rule Out 02/24/2020 02/24/2020 02/24/2020 10: 22 AM EXPANDED FUNCTION DENTAL ASSISTANT documented as of this encounter Insurance Payer Benefit Plan / Subscriber ID Effective Phone Address T ype Group Dates [employer] [id number] [address] [place] [id number] [place] [address] documented as of this encounter
[2020-03-06] MEDS ORDERED: ONDANSETRON 4 MG/2 ML VIAL ONE ×2 (09:56→10:59)
[2020-03-06] MEDS ORDERED: DIPHENHYDRAMINE 50 MG/ML VIAL ONE (09:56)
[2020-03-06] MEDS ORDERED: KETOROLAC 30 MG/ML INJ ONE (09:57)
[2020-03-06] MEDS ORDERED: NA CHLORIDE 0.9% 1,000 ML ONE (09:57)
--- NOTE | 2020-03-06 10:07 | RAD REPORT ---
EXAM DESCRIPTION: Emma Single View03/06/2020 9:50 am CLINICAL HISTORY: Chest pain COMPARISON: November 2019 FINDINGS: The lungs appear clear of acute infiltrate. The heart is normal size. Postsurgical change s involve the chest. Mild prominence of mediastinum could be secondary to mediastinal fat, tortuous v essels or lymphadenopathy
[2020-03-06 10:34] LABS: Absolute Lymphocytes (CBC) 1.5 K/uL (0.7-4.9); Basophils % 1.3 % (0-1.3); Hematocrit 41.7 % (39.6-49.0); Lymphocytes % 19.1 % (15.3-44.8); MPV 11.6 fL (7.6-11.3); Protime INR 1.04; RBC Red Blood Cell Count 4.04 M/uL (4.33-5.43)
[2020-03-06 10:46] LABS: Barbiturates NEGATIVE (NEGATIVE); Benzodiazepines POSITIVE (NEGATIVE); Cocaine NEGATIVE (NEGATIVE); METHAMPHETAM NEGATIVE (NEGATIVE); Methadone NEGATIVE (NEGATIVE); Opiates NEGATIVE (NEGATIVE); Phencyclidine NEGATIVE (NEGATIVE); THC Cannibis POSITIVE (NEGATIVE)
[2020-03-06 10:50] LABS: ALT/SGPT 80 U/L (12-78); AST/SGOT 265 U/L (15-37); Albumin 3.1 g/dL (3.4-5.0); Alkaline Phosphatase 224 U/L (45-117); BUN Blood Urea Nitrogen 5 mg/dL (7-18); Bicarbonate 27 mmol/L (21-32); Bilirubin Direct 1.1 mg/dL (0-0.2); Bilirubin Total 1.7 mg/dL (0.2-1.0); Glucose Level 115 mg/dL (74-106); Lipase 66 U/L (73-393); NT PRO-BNP 674 pg/mL (<125); Potassium 3.6 mmol/L (3.5-5.1); Protein, Total 8.3 g/dL (6.4-8.2); Sodium Level 136 mmol/L (136-145); Troponin (Emerg Dept Use Only) < 0.02 ng/mL (0.0-0.045)
[2020-03-06 10:52] LABS: Magnesium 1.1 mg/dL (1.8-2.4)
[2020-03-06] MEDS ORDERED: MORPHINE 2 MG/ML SYR ONE (10:59)
[2020-03-06 11:48] LABS: Urine Blood NEGATIVE (NEG); Urine Glucose NEGATIVE (NEG); Urine Protein 1+ (NEG); Urine Specific Gravity 1.015 (1.005-1.030)
[2020-03-06] MEDS ORDERED: PROMETHAZINE INJ 25 MG/ML AMP ONE (11:51)
--- NOTE | 2020-03-06 11:59 | RAD REPORT ---
EXAM DESCRIPTION: CT - Head C Spine Mpr Wo Con - 03/06/2020 11:43 am CLINICAL HISTORY: Syncope. Head and neck injury status post fall. Head and neck pain COMPARISON: None. TECHNIQUE: Computed axial tomography of the head and cervical spine was obtained. Sagittal and coronal reconstruction was performed. All CT scans are performed using dose optimization technique as appropriate and may include automated exposure control or mA/KV adjustment according to patient size. FINDINGS: An intracranial bleed is not seen. The ventricles are normal in caliber. An extra-axial fl uid collection is not noted.Fluid within the left maxillary sinus may indicate acute sinusitis Old fracture spinous process C7. No acute fracture or dislocation. Spondylosis involves the cervical spine. This results in moderate left foraminal stenosis C3-4. Mild bilateral foraminal stenosis C5-6. Mild central spinal stenosis C5-6 IMPRESSION: No acute intracranial abnormality is seen. An acute cervical fracture is not visualized. Spondylosis involving the cervical spine. If the patien t continues to have symptoms to suggest intracranial /spinal cord/spinal canal pathology then MRI wou ld be recommended
--- NOTE | 2020-03-06 12:10 | RAD REPORT ---
EXAM DESCRIPTION: CT - Angio Aorta For Dissection - 03/06/2020 11:53 am CLINICAL HISTORY: . Chest and abdominal pain COMPARISON: November 2019 CT abdomen TECHNIQUE: Computed tomography angiography of the chest, abdomen pelvis were obtained. 100 cc Isovue 370 was administered intravenously. Coronal and sagittal reconstruction were performed. MIP 3D reconstruction was performed All CT scans are performed using dose optimization technique as appropriate and may include automated exposure control or mA/KV adjustment according to patient size. FINDINGS: The opacification of the aorta and iliac arteries is suboptimal. No gross aortic dissecti on noted. No aneurysm. The celiac, SMA and THANIA are patent . The splenic artery arises from the aorta and is patent A lung consolidation is not present. A pericardial effusion is not seen. A pleural effusion is not n oted. Prominent mediastinal fat. Old rib fractures Fatty liver. ,spleen, pancreas adrenals kidneys demonstrate no significant abnormality. There no evidence diverticulitis. No ascites is noted. IMPRESSION: No gross evidence of an aortic dissection
--- NOTE | 2020-03-06 12:51 | ER ---
Nurse's Notes [facility] Name: Jose Toussaint Age: 60 yrs Sex: Male : 1960 Arrival Date: 03/06/2020 Time: 09:19 Bed 19 Private MD: Diagnosis: Alcohol dependence with withdrawal;Hypomagnesemia Presentation: 03/06 09:20 Chief complaint: EMS states: called out for near syncope, pt reports chest pain and abd em pain, hx of ETOH abuse, reports having gallbladder removed recently, reports N/V, denies fever. Coronavirus screen: Client denies travel out of the [place] in the last 14 days. Ebola Screen: Patient negative for fever greater than or equal to 101.5 degrees Fahrenheit, and additional compatible Ebola Virus Disease symptoms Patient denies exposure to infectious person. Patient denies travel to an Ebola-affected area in the 21 days before illness onset. No symptoms or risks identified at this time. Initial Sepsis Screen: Does the patient meet any 2 criteria? HR > 90 bpm. No. Patient's initial sepsis screen is negative. Does the patient have a suspected source of infection? No. Patient's initial sepsis screen is negative. Risk Assessment: Do you want to hurt yourself or someone else? Patient reports no desire to harm self or others. Onset of symptoms was March 06, 2020. 09:20 Method Of Arrival: EMS: [facility] em 09:20 Acuity: SASHA 2 em Historical: - Allergies: 09:23 No Known Allergies; em - PMHx: 09:23 Alcoholism; Chronic pain; Hypertension; Pancreatitis; em - PSHx: 09:23 Cholecystectomy; em - Immunization history:: Adult Immunizations up to date. - Social history:: Smoking status: Patient reports the use of cigarette tobacco products, smokes one-half pack cigarettes per day. Screenin:23 Abuse screen: Denies threats or abuse. Nutritional screening: No deficits noted. ae4 Tuberculosis screening: No symptoms or risk factors identified. Fall Risk Fall in past 12 months (25 points). Assessment: 09:55 General: Appears uncomfortable, obese, unkempt, Behavior is cooperative, anxious. Pain: ae4 Complains of pain in diaphragm Pain currently is 10 out of 10 on a pain scale. Neuro: Level of Consciousness is awake, alert, obeys commands, Oriented to person, place, time, situation. Cardiovascular: Heart tones S1 S2 present. Respiratory: Airway is patent Respiratory effort is even, unlabored, shallow, Respiratory pattern is regular, symmetrical. GI: Abdomen is round distended, obese, Bowel sounds present X 4 quads. Reports upper abdominal pain, nausea, vomiting, episode of loose stool. : Urine is Dark yellow. EENT: No signs and/or symptoms were reported regarding the EENT system. Derm: Skin is dry, Skin temperature is warm. Musculoskeletal: No signs and/or symptoms reported regarding the musculoskeletal system. 10:35 Reassessment: Patient appears in no apparent distress at this time. Patient and/or ae4 family updated on plan of care and expected duration. Pain level reassessed. Patient reports no improvement in pain level and nausea. 10:36 Reassessment: Patient appears in no apparent distress at this time. Patient and/or ae4 family updated on plan of care and expected duration. Pain level reassessed. PA notified of nausea and pain level, new orders recieved. 12:56 Reassessment: Patient and/or family updated on plan of care and expected duration. Pain ae4 level reassessed. Patient is resting with eyes closed, respirations even and unlabored. Patient appears more relaxed. Patient states feeling better. Patient states symptoms have improved. 13:10 Reassessment: Patient is calling home for a ride back to his house. ae4 Vital Signs: 09:20 Pulse 114; Resp 22; Temp 98.0(O); Pulse Ox 98% on R/A; Weight 104.33 kg; Height 6 ft. 2 em in. (187.96 cm); Pain 9/10; 09:23 BP 127 / 83; em 10:38 BP 130 / 61; Pulse 95; Resp 20; Pulse Ox 97% ; ae4 11:31 BP 132 / 112; Pulse 101; Resp 17; Pulse Ox 98% on R/A; ae4 12:04 BP 137 / 97; Pulse 109; Resp 22; Pulse Ox 100% on R/A; ae4 12:54 BP 119 / 70; Pulse 97; Resp 18; Pulse Ox 96% on R/A; ae4 09:20 Body Mass Index 29.53 (104.33 kg, 187.96 cm) em ED Course: 09:19 Patient arrived in ED. ds1 09:22 Triage completed. em 09:23 Arm band placed on. em 09:29 Artur Preciado [facility]. cp 09:29 Tk Muse MD is Attending Physician. cp 09:35 Yaw Martinez, HEIDI is Primary Nurse. ae4 09:51 XRAY Chest (1 view) In Process Unspecified. EDMS 09:55 Inserted saline lock: 20 gauge in left antecubital area, using aseptic technique. Blood ae4 collected. 10:00 EKG done, by ED staff, reviewed by Artur CESPEDES. dh3 10:23 Placed in gown. Bed in low position. Call light in reach. Side rails up X 1. Cardiac ae4 monitor on. Pulse ox on. NIBP on. 11:[address] via stretcher. ae4 11:43 CT Head C Spine In Process Unspecified. EDMS 11:53 CT Aorta for Dissection In Process Unspecified. EDMS 12:56 No provider procedures requiring assistance completed. ae4 13:19 IV discontinued, intact, bleeding controlled, No redness/swelling at site. Pressure ae4 dressing applied. Administered Medications: 10:00 Drug: Zofran (Ondansetron) 4 mg Route: IVP; Site: left antecubital; ae4 10:55 Follow up: Response: No adverse reaction; Pain is unchanged, physician notified ae4 10:00 Drug: NS 0.9% 1000 ml Route: IV; Rate: 1 bolus; Site: left antecubital; ae4 10:02 Drug: TORadol - Ketorolac 15 mg Route: IVP; Site: left antecubital; ae4 10:55 Follow up: Response: No adverse reaction; Pain is unchanged, physician notified ae4 10:55 Follow up: Response: RASS: Alert and Calm (0) ae4 10:06 Drug: Benadryl 12.5 mg Route: IVP; Site: left antecubital; ae4 10:55 Follow up: Response: No adverse reaction; RASS: Alert and Calm (0) ae4 10:51 Drug: Zofran (Ondansetron) 4 mg Route: IVP; Site: left antecubital; ae4 12:54 Follow up: Response: Nausea unchanged; PA Notified, new order recieved. ae4 10:55 Drug: morphine 2 mg Route: IVP; Site: left antecubital; ae4 13:10 Follow up: Response: No adverse reaction; Pain is decreased ae4 12:04 Drug: Phenergan 25 mg Route: IVP; Site: left antecubital; ae4 12:53 Follow up: Response: Nausea is decreased ae4 13:09 Drug: Magnesium 400 mg Route: PO; ae4 19:48 Follow up: Response: No adverse reaction; Medication administered at discharge. ae4 Intake: Outcome: 12:51 Discharge ordered by MD. cp 13:19 Discharged to home ambulatory. ae4 13:19 Condition: stable 13:19 Discharge instructions given to patient, Instructed on discharge instructions, follow up and referral plans. medication usage, Demonstrated understanding of instructions, Prescriptions given X 2. 13:20 Patient left the ED. ae4 Signatures: Dispatcher [employer] EDLong Bolanos RN RN em Sanford, Demi ds1 Artur Preciado PA PA Martha Yepez 3 Yaw Martinez RN RN ae4 Corrections: (The following items were deleted from the chart) 12:55 10:36 Reassessment: ae4 ae4
--- NOTE | 2020-03-06 12:51 | EDPHYS ---
Physician Documentation [facility] Name: Jose Toussaint Age: 60 yrs Sex: Male : 1960 Arrival Date: 03/06/2020 Time: 09:19 Bed 19 Private MD: ED Physician Tk Muse HPI: 03/06 09:32 This 60 yrs old Male presents to ER via EMS with complaints of Nausea, cp Syncope. Historical: - Allergies: 09:23 No Known Allergies; em - PMHx: 09:23 Alcoholism; Chronic pain; Hypertension; Pancreatitis; em - PSHx: 09:23 Cholecystectomy; em - Immunization history:: Adult Immunizations up to date. - Social history:: Smoking status: Patient reports the use of cigarette tobacco products, smokes one-half pack cigarettes per day. ROS: 09:35 Constitutional: Positive for body aches, Negative for fever, poor PO intake. cp 09:35 Eyes: Negative for injury, pain, redness, and discharge. cp 09:35 ENT: Negative for ear pain, sore throat, difficulty swallowing, difficulty handling secretions. 09:35 Cardiovascular: Positive for chest pain, Negative for edema. 09:35 Respiratory: Negative for cough, shortness of breath, wheezing. 09:35 Abdomen/GI: Positive for abdominal pain, Negative for nausea, vomiting, and diarrhea, black/tarry stool, rectal bleeding. 09:35 Back: Positive for pain at rest, pain with movement. 09:35 Neuro: Positive for near syncope, tremor, Negative for altered mental status, headache, weakness. 09:35 All other systems are negative. Exam: 10:07 ECG was reviewed by the Attending Physician. cp Vital Signs: 09:20 Pulse 114; Resp 22; Temp 98.0(O); Pulse Ox 98% on R/A; Weight 104.33 kg; Height 6 ft. 2 em in. (187.96 cm); Pain 9/10; 09:23 BP 127 / 83; em 10:38 BP 130 / 61; Pulse 95; Resp 20; Pulse Ox 97% ; ae4 11:31 BP 132 / 112; Pulse 101; Resp 17; Pulse Ox 98% on R/A; ae4 12:04 BP 137 / 97; Pulse 109; Resp 22; Pulse Ox 100% on R/A; ae4 12:54 BP 119 / 70; Pulse 97; Resp 18; Pulse Ox 96% on R/A; ae4 09:20 Body Mass Index 29.53 (104.33 kg, 187.96 cm) em MDM: 09:32 Patient medically screened. cp 03/06 09:29 Order name: Basic Metabolic Panel; Complete Time: 11:19 cp 03/06 11:19 Interpretation: Normal except: GLUC 115; BUN 5; GFR 64. cp 03/06 09:29 Order name: CBC with Diff; Complete Time: 10:51 cp 03/06 11:20 Interpretation: Normal except: RBC 4.04; MCV 103.4; MCH 35.8; MPV 11.6. cp 03/06 09:29 Order name: LFT's; Complete Time: 11:19 cp 03/06 11:20 Interpretation: Reviewed. cp 03/06 09:29 Order name: Magnesium; Complete Time: 11:19 cp 03/06 11:20 Interpretation: Abnormal: MG 1.1. cp 03/06 09:29 Order name: NT PRO-BNP; Complete Time: 11:19 cp 03/06 09:29 Order name: PT-INR; Complete Time: 10:51 cp 03/06 09:29 Order name: Troponin (emerg Dept Use Only); Complete Time: 11:19 cp 03/06 09:29 Order name: XRAY Chest (1 view); Complete Time: 10:51 cp 03/06 09:30 Order name: Lipase; Complete Time: 11:19 cp 03/06 11:20 Interpretation: LIP 66; Reviewed. 03/06 09:32 Order name: UDS; Complete Time: 10:51 cp 03/06 09:32 Order name: ETOH Level; Complete Time: 10:51 cp 03/06 10:12 Order name: Urine Dipstick--Ancillary (enter results); Complete Time: 12:14 eb 03/06 10:26 Order name: CT Aorta for Dissection; Complete Time: 12:14 cp 03/06 10:45 Order name: CT Head C Spine; Complete Time: 12:14 cp 03/06 09:29 Order name: EKG; Complete Time: 09:30 cp 03/06 09:29 Order name: Cardiac monitoring; Complete Time: 10:23 cp 03/06 09:29 Order name: EKG - Nurse/Tech; Complete Time: 10:12 cp 03/06 09:29 Order name: IV Saline Lock; Complete Time: 10:23 cp 03/06 09:29 Order name: Labs collected and sent; Complete Time: 10:23 cp 03/06 09:29 Order name: O2 Per Protocol; Complete Time: 10:23 cp 03/06 09:29 Order name: O2 Sat Monitoring; Complete Time: 10:23 cp 03/06 12:35 Order name: PO challenge; Complete Time: 13:09 cp EC:07 Rate is 97 beats/min. Rhythm is regular. PA interval is normal. QRS interval is normal. cp QT interval is normal. T waves are Inverted in lead aVR. Interpreted by me. Reviewed by me. Administered Medications: 10:00 Drug: Zofran (Ondansetron) 4 mg Route: IVP; Site: left antecubital; ae4 10:55 Follow up: Response: No adverse reaction; Pain is unchanged, physician notified ae4 10:00 Drug: NS 0.9% 1000 ml Route: IV; Rate: 1 bolus; Site: left antecubital; ae4 10:02 Drug: TORadol - Ketorolac 15 mg Route: IVP; Site: left antecubital; ae4 10:55 Follow up: Response: No adverse reaction; Pain is unchanged, physician notified ae4 10:55 Follow up: Response: RASS: Alert and Calm (0) ae4 10:06 Drug: Benadryl 12.5 mg Route: IVP; Site: left antecubital; ae4 10:55 Follow up: Response: No adverse reaction; RASS: Alert and Calm (0) ae4 10:51 Drug: Zofran (Ondansetron) 4 mg Route: IVP; Site: left antecubital; ae4 12:54 Follow up: Response: Nausea unchanged; PA Notified, new order recieved. ae4 10:55 Drug: morphine 2 mg Route: IVP; Site: left antecubital; ae4 13:10 Follow up: Response: No adverse reaction; Pain is decreased ae4 12:04 Drug: Phenergan 25 mg Route: IVP; Site: left antecubital; ae4 12:53 Follow up: Response: Nausea is decreased ae4 13:09 Drug: Magnesium 400 mg Route: PO; ae4 19:48 Follow up: Response: No adverse reaction; Medication administered at discharge. ae4 Disposition: 03/07 06:58 Co-signature as Attending Physician, Tk Muse MD I agree with the assessment and kdr plan of care. Disposition: 03/06/20 12:51 Discharged to Home. Impression: Alcohol dependence with withdrawal, Hypomagnesemia. - Condition is Stable. - Discharge Instructions: Alcohol Withdrawal, Hypomagnesemia, Nausea, Adult, Malnutrition. - Prescriptions for librium - take 50 milligram by ORAL route 4 times per day As needed; 30 milligram. Zofran 4 mg Oral Tablet - take 1 tablet by ORAL route every 12 hours As needed; 20 tablet. - Medication Reconciliation Form, Thank You Letter, Antibiotic Education, Prescription Opioid Use form. - Follow up: Private Physician; When: 1 - 2 days; Reason: Recheck today's complaints. - Problem is new. - Symptoms have improved. Signatures: Dispatcher [employer] EDOH Tk Muse MD MD kdr Long Gayle RN RN em Artur Preciado PA PA cp Yaw Martinez, RN RN ae4 Corrections: (The following items were deleted from the chart) 03/06 13:20 12:51 03/06/2020 12:51 Discharged to Home. Impression: Alcohol dependence with ae4 withdrawal; Hypomagnesemia. Condition is Stable. Forms are Medication Reconciliation Form, Thank You Letter, Antibiotic Education, Prescription Opioid Use. Follow up: Private Physician; When: 1 - 2 days; Reason: Recheck today's complaints. Problem is new. Symptoms have improved. cp
[2020-03-06] MEDS ORDERED: MAGNESIUM OXIDE 400 MG TAB ONE (13:14)
[2020-03-06 18:48] VITALS: BP 119/70; O2SAT 96
[2020-03-06 19:10] VITALS: TEMP 98.6
== END 2020-03-06 13:20 | disposition home or self-care (01) ==
LOC: ER 09:19
DX: F10.239 Alcohol dependence with withdrawal, unspecified (principal); E83.42 Hypomagnesemia; I10 Essential (primary) hypertension; F17.210 Nicotine dependence, cigarettes, uncomplicated
CPT/HCPCS: 93005; 85025; 80048; 36415; 80320; 83735; 85610; 80076; 80307 ×8; 81003; 84484; 83690; 83880; 70450; 72125; 71275; 74175; 71045; 96375; 96374; 99285; Q9967; J2550; J1200; J2270; J7030; J2405 ×2

== ENCOUNTER 2020-05-01 17:53 | Emergency (ER) | payer OTHER ==
--- OUTSIDE RECORDS SUMMARY | 2020-05-01 17:56 | XMS REPORT | Clinical Summary ---
:1960 Author Organization [facility] Address [address] [place] [address] Care Team Providers Name Role Phone Pcp, Caprice MD Primary Care Provider Unavailable Allergies No Known [...] without complication (HCC) (Primary Dx); 12/08/2019 Medicine Moriah Clemings, Alcohol-lior raffi acute pancreatitis without infection or necrosis; Essential hypertension; Yenifer Barragan Alcohol wit hdrawal delirium (HCC); MD Aria Cholecystitis; Gallstone pancr eatitis 12/01/2019 Abstract [facility] after 05/01/2019 Social History Tobacco Use Types Packs/Day Years [...] 324 ms QTC Calculation(Bazett) 460 ms P [place] 80 degrees R [place] -16 degrees T [place] 39 degrees Sinus tachycardia with Jasmyn ture [...] i n the results section . after 05/01/2019 Results RHYTHM STRIP - SCAN (12/11/2019 12:00 [...] Sig nature WBC 8.7 3.5 - 10.5 [facility] K/L [facility] RBC 3.14 (L) 4.63 - 6.08 [facility] M/L [facility] Hemoglobin 10.8 (L) 13.7 - 17.5 [facility] GM/DL [facility] Hematocrit 34.1 (L) 40.1 - 51.0 % [facility] MCV 108.6 (H) 79.0 - 92.2 fL [facility] MCH 34.4 (H) 25.7 - 32.2 pg [facility] MCHC 31.7 (L) 32.3 - 36.5 [facility] GM/DL [facility] RDW 13.2 11.6 - 14.4 % [facility] Platelets 150 150 - 450 K/CU [facility] MPV 12.4 9.4 - 12.4 fL [facility] nRBC 0 0 - 0 /100 WBC [facility] % Neutros 74 % [facility] % Lymphs 15 % [facility] % Monos 10 % [facility] % Eos 0 % [facility] % Baso 0 % [facility] # Neutros 6.38 (H) 1.78 - 5.38 [facility] # Lymphs 1.33 1.32 - 3.57 [facility] # Monos 0.89 (H) 0.30 - 0.82 [facility] # Eos 0.00 (L) 0.04 - 0.54 [facility] # Baso 0.02 0.01 - 0.08 [facility] K/L [facility] Immature 1 0 - 1 % [facility] Granulocytes-Relativ [facility] e [place] Specimen Blood Performing Organization Address City/[facility]/Zipcode Phone Number [facility] [address] [place] [address] CENTER Hepatic function panel (12/08/2019 5:21 AM CDT)Only the most recent of3 results within the time period is included. Pathologist Sig nature Protein, Total 7.0 6.0 - 8.3 gm/dL [facility] Albumin 3.2 (L) 3.5 - 5.0 g/dL [facility] Total Bilirubin 0.6 0.2 - 1.2 mg/dL [facility] Bilirubin, Direct 0.5 0.1 - 0.5 mg/dL [facility] Alkaline Phosphatase 128 40 - 150 U/L [facility] AST 124 (H) 5 - 34 U/L [facility] ALT 56 (H) 6 - 55 U/L [facility] Specimen Blood Narrative Performed At Chute Puller FORD Roger LANEY Samuel [facility] Performing Organization Address City/[facility]/Zipcode Phone Number [address] [address] CENTER Basic Metabolic Panel (12/08/2019 5:21 AM CDT)Only the most recent of7 results within the time period is included. Sodium 137 136 - 145 meq/L [facility] Potassium 4.8 3.5 - 5.1 meq/L [facility] Chloride 106 98 - 107 meq/L [facility] CO2 16 (L) 22 - 29 meq/L [facility] BUN 8 7 - 21 mg/dL [facility] Creatinine 0.91 0.57 - 1.25 [facility] mg/dL [facility] Glucose 105 70 - 105 mg/dL [facility] Calcium 8.9 8.4 - 10.2 [facility] mg/dL [facility] EGFR 86Comment: ESTIMATED mL/min/1.73 sq [facility] GFR IS NOT m [facility] ACCURATE CENTER CREATININE CLEARANCE IN PREDICTING GLOMERULAR FILTRATION RATE. ESTIMATED GFR IS NOT APPLICABLE FOR DIALYSIS PATIENTS. Specimen Blood Narrative Performed At Chute Puller FORD - LANEY Samuel [facility] ICA CENTER Performing Organization Address City/State/Zipcode Phone Number [facility] [address] [place] [address] CENTER Tissue Exam (12/07/2019 12:07 PM CDT) Case Report Surgical Pathology Report Case: [id number] [facility] I [facility] Authorizing Provider: James Andrade MD Collected: 12/07/2019 12:07 PM [facility] Ordering Location: [address] Received: 12/08/2019 10:06 AM [facility] Service Pathologist: Syl Rg MD Specimen: Gallbladder DIAGNOSIS A. GALLBLADDER, LAPAROSCOPIC CHOLECYSTECTOMY: [facility] Electronically - CHRONIC CHOLECYSTITIS [facility] sig divina by Ifrah, - CHOLELITHIASIS [facility] Syl Wong MD - CYSTIC DUCT MARGIN, UNREMARKABLE on 12/10/2019 at - NEGATIVE FOR DYSPLASIA OR MALIGNANCY 1:23 PM Signing Pathologist Direct Phone Line: CPT Code(s) 83708 [facility] CLINICAL HISTORY Cholecystitis. [facility] SPECIMEN SOURCE Gallbladder [facility] GROSS DESCRIPTION Received in formalin [facility] labeled with the HEALTH SYSTEM patient's name, MEDICAL CENTER accession number and [...] wall measures up to 0.4 cm thick. Quarter Folder sections are submitted in A1-A2,with the inked cystic duct margin in A1. PA/ew MICROSCOPIC Performed. [facility] Specimen Tissue - Gallbladder structure (body str ucture) Performing Organization Address City/[facility] Phone Number [address] [address] CENTER AFB culture + smear (non-sputum) (12/07/2019 11:35 AM CDT) Pathologist Sig nature Result No acid-fast bacilli [facility] isolated in 42 days [facility] AFB Smear No acid fast bacilli [facility] seen [facility] Specimen Body Fluid - Gallbladder structure (body structure) Performing Organization Address [facility] Hospital[facility] Phone Number [address] [address] [place] Anaerobic culture (12/07/2019 11:35 AM CDT) Pathologist Sig nature Result 4+ Clostridium [facility] perfringens () [facility] Specimen Body Fluid - Gallbladder structure (body structure) Performing Organization Address [facility] Hospital[facility] Phone Number [address] [address] CENTER Surgically obtained culture + gram stain (12/07/2019 11:35 AM CDT) Result <1+ Citrobacter [facility] freundii () [facility] Result 2+ Enterococcus [facility] faecalis () [facility] Result 2+ Enterococcus avium [facility] () [facility] Gram Stain Result No WBCs [facility] Gram Stain Result <1+ gram positive [facility] rods [facility] [...] Vancomycin 0.50: Suscept ible Performing Organization Address City/[facility] Phone Number [address] [address] [place] Fungus culture + smear (12/07/2019 11:35 AM CDT) Pathologist Sig nature Result No fungus isolated [facility] in 28 days [facility] Fungus Smear No fungal elements [facility] seen [facility] Specimen Body Fluid - Gallbladder structure (body structure) Performing Organization Address City/[facility]/Zipcode Phone Number [address] [address] CENTER SPIN/CONCENTRATION CHARGE (12/07/2019 11:35 AM CDT) Pathologist Sig nature Concentration charged Done [facility] Specimen Body Fluid - Gallbladder structure (body structure) Performing Organization Address City/[facility] Phone Number [place] [address] [phone] [place] [address] [place] PT/aPTT (12/07/2019 5:05 AM CDT) Pathologist [facility] Protime 13.1 11.9 - 14.2 seconds [facility] INR 1.02 <=5.90 [facility] PTT 34.5 22.5 - 36.0 seconds [facility] Specimen Blood Narrative Performed At Effective 09/11/2018: PT Reference Range [facility] Change New: 11.9-14.2 Previous: 11.7-14.7 RECOMMENDED COUMADIN/WARFARIN INR THERAPY RANGES STANDARD DOSE: 2.0-3.0 Includes: PROPHYLAXIS for venous thrombosis, systemic embolization; TREATMENT for venous thrombosis and/or pulmonary embolus. HIGH RISK: Target INR is 2.5-3.5 for patients wiht mechanical heart valves. Performing Organization Address City/[facility] Phone Number [place] [phone] [place], [place] [phone] [place] Prothrombin time/INR (12/07/2019 5:05 AM CDT)Only the most recent of2 results within the time period is included. [facility] Protime 13.1 11.9 - 14.2 seconds [facility] INR 1.02 <=5.90 [facility] Specimen Blood Narrative Performed At Effective 09/11/2018: PT Reference Range [facility] Change New: 11.9-14.2 Previous: 11.7-14.7 RECOMMENDED COUMADIN/WARFARIN INR THERAPY RANGES STANDARD DOSE: 2.0-3.0 Includes: PROPHYLAXIS for venous thrombosis, systemic embolization; TREATMENT for venous thrombosis and/or pulmonary embolus. HIGH RISK: Target INR is 2.5-3.5 for patients wiht mechanical heart valves. Performing Organization Address City/State/[facility] Hospital[facility] Phone Number [address] [phone] CENTER Phosphorus (12/07/2019 5:05 AM CDT)Only the most recent of10 resultswithin the time period is included. Pathologist Sig nature Phosphorus 4.9 (H) 2.3 - 4.7 mg/dL [facility] Specimen Blood Narrative Performed At Chute Puller ID - LANEY [facility] Performing Organization Address [facility] Hospital[facility] Phone Number [address] [address] [place] Magnesium (12/07/2019 5:05 AM CDT)Only the most recent of10 resultswithin the time period is included. Pathologist Sig nature Magnesium 1.4 (L) 1.6 - 2.6 mg/dL [facility] Specimen Blood Narrative Performed At Chute Puller ID - [facility] Performing Organization Address [facility] Hospital[facility] Phone Number [address] [address] [place] Comprehensive metabolic panel (12/07/2019 5:05 AM CDT)Only the most recent of3 resultswithin the time period is included. Protein, Total 6.1 6.0 - 8.3 [facility] gm/dL [facility] Albumin 2.8 (L) 3.5 - 5.0 [facility] g/dL [facility] Alkaline 118 40 - 150 U/L [facility] Phosphatase [facility] Total Bilirubin 0.5 0.2 - 1.2 [facility] mg/dL [facility] Sodium 137 136 - 145 [facility] meq/L [facility] Potassium 3.9 3.5 - 5.1 [facility] meq/L [facility] Chloride 105 98 - 107 [facility] meq/L [facility] CO2 26 22 - 29 meq/L [facility] BUN 4 (L) 7 - 21 mg/dL [facility] Creatinine 0.79 0.57 - 1.25 [facility] mg/dL [facility] Glucose 93 70 - 105 [facility] mg/dL [facility] Calcium 8.5 8.4 - 10.2 [facility] mg/dL [facility] AST 80 (H) 5 - 34 U/L [facility] ALT 39 6 - 55 U/L [facility] EGFR 101Comment: mL/min/1.73 [facility] ESTIMATED GFR IS sq [facility] NOT ACCURATE [facility]ICAL CENTER CREATININE CLEARANCE IN PREDICTING GLOMERULAR FILTRATION RATE. ESTIMATED GFR IS NOT APPLICABLE FOR DIALYSIS PATIENTS. Specimen Blood Narrative Performed At Chute Puller FORD - LANEY Baker [facility] Performing Organization Address City/State/Zipcode Phone Number [address] [address] CENTER Type and screen, automated (12/07/2019 5:04 AM CDT)Only the most recent of2 resultswithin the time period is included. Pathologist Sig nature ABO/RH AUTOMATED A NEGATIVE [facility] (BEAKER) [facility] Ab Scrn NEGATIVE [facility] Specimen Blood Performing Organization Address City/[facility]/Zipcode Phone Number [place] [address] [phone] [place], [place] [phone] [place] abdomen limited (12/06/2019 11:17 PM CDT) Specimen Narrative Performed At FINAL REPORT [employer] TECHNIQUE: [facility]. INDICATION: gallstones, concern for acut [...] REPORT TECHNIQUE: [facility]. INDICATION: gallstones, concern for acut [...] 0:44:30 Performing Organization Address City/State/Zipcode Phone Number Packet Digital 2D Echo W/Doppler(CW/PW/Color) (12/06/2019 3:53 PM CDT) Pathologist Sig nature Ejection Fraction [facility] ECHO HEARTLAB Desktime [facility] Specimen Narrative Performed At Transthoracic Echocardiography Report (T TE) [facility] [employer] HEARTPhlebot[facility] Dem[facility] Patient Name JOSE MONTANA Date of Study 12/06/2019 Gender Male Visit Number [id number] Race Unknown Room Number 734 Number Date of 1960 Referring Physician Yenifer Barragan Age 59 year(s) Husbandry Person Zina YANCEY Tomato Pulper Operator Misbah Gao Interpreting Ja Pabon Physician [...] of Study 12/06/2019 Gender Male Visit Number [id number] Race Unknown Room [place] [address] Number Date of 1960 Ying angela Physician Yenifer Barragan Age 59 year(s) Sonograp her Zina Melhem RDCS Tomato Pulper Operator Ja Meraz MD Procedure Type of [...] TR Gradient: 23.81 mmHg Performing Organization Address [facility] Phone Number [facility] ECHO HEARTLAB MKCKESSON CPACS XR chest 1 view portable / bedside (12/06/2019 11:29 AM CDT) Specimen Narrative Performed At FINAL REPORT Packet Digital History: Preoperative evaluation, cholec ystitis Comparison: No [...] Report Verified Date/Time: 12/06/2019 12:00:14 Reading Location: [address] [facility] Reading Room Procedure Note Interface, External Ris [...] Verified Date/Time: 12/06/2019 1 2:00:14 Reading Location: [facility] B1 C013T [facility] Reading Room Performing Organization Address [facility] Phone Number Packet Digital CT abdomen/pelvis with IV contrast (12/06/2019 4:24 AM CDT) Specimen Narrative Performed At FINAL REPORT [employer] CT, ABDOMEN \\T\\ PELVIS, WITH IV CONTRAST [...] with right upper quadrant ultrasound versus n [facility] medicine scan. Mild biliary ductal dilatation. [...] with right upper quadrant ultrasound versus n [facility] medicine scan. Mild biliary ductal dilatation. Correlat e with LFTs and consider further evaluation with MRCP/ERCP. Hypodensity of the hepatic parenchyma ma y be related to timing of contrast versus hepatic steatosis. Signed: Simon Lal MD Report Verified Date/Time: 12/06/2019 0 5:11:12 Performing Organization Address City/State/[facility] Phone Number GE RIS ECG 12 lead (12/04/2019 5:36 AM CDT)Only the most recent of2 resultswithin the time period is included. Specimen Narrative Performed At Ventricular Rate 118 BPM GE MUSE Atrial Rate 118 BPM P-R Interval 198 ms QRS Duration 72 ms Q-T Interval 330 ms QTC Calculation(Bazett) 462 ms P [place] 65 degrees R [place] -14 degrees T [place] 32 degrees Sinus tachycardia with Premature atrial [...] 330 ms QTC Calculation(Bazett) 462 ms P [place] 65 degrees R [place] -14 degrees T [place] 32 degrees Sinus tachycardia with Premature atrial complexes Otherwise normal ECG When compared with ECG of 02-DEC-2019 02 :21, No significant change was found Confirmed by MD ELIDA, CAMPBELL ( 190) on 12/05/2019 9:52:27 PM Performing Organization Address City/[facility] Phone Number GE MUSE Iron, TIBC, % sat. (without ferritin) (12/03/2019 4:33 AM CDT) Pathologist Sig nature Iron 161.0 (H) 40.0 - 160.[address] [facility] ug/dL [facility] TIBC 159 (L) 250 - 450 ug/dL [facility] Iron % Saturation 101 (H) 20 - 55 % [facility] Specimen Blood Narrative Performed At Chute Puller FORD Baker [facility] Performing Organization Address City/[facility]/Zipcode Phone Number [facility] [address] [place] [address] CENTER Triglycerides (12/03/2019 4:33 AM CDT) Pathologist Sig nature Triglycerides 91 mg/dL [facility] D[facility] [place] Specimen Blood Narrative Performed At TRIGLYCERIDE REFERENCE RANGE [facility] Low Risk <150 Borderline Risk 150-199 High Risk 200-499 Very High Risk >=500 Chute Puller FORD - LANEY Baker Performing Organization Address City/[facility] Phone Number [address] [address] CENTER Ferritin (12/03/2019 4:33 AM CDT) Pathologist Sig nature Ferritin 4,080.63 (H) 5.00 - 275.[address] [facility] ng/mL [facility] Specimen Blood Narrative Performed At Chute Puller ID - LANEY Baker [facility] ICAL CENTER Performing Organization Address [facility] Phone Number [address] [address] CENTER Lipid panel (12/02/2019 4:40 PM CDT) Pathologist Sig nature Triglycerides 135 mg/dL [facility] [place] Cholesterol 131 mg/dL [facility] ICAL [place] HDL 73 mg/dL [facility] LDL Calculated 31 mg/dL [facility] Specimen Blood Narrative Performed At Triglyceride Reference Range: [facility] Low Risk <150 Borderline 150-199 High Risk 200-499 Very High Risk >=500 Cholesterol Reference Range: Low Risk <200 Borderline 200-239 High Risk >240 HDL Cholesterol Reference Range: Low Risk >=60 High Risk <40 LDL Cholesterol Reference Range: Optimal <100 Near Optimal 100-129 Borderline 130-159 High 160-189 Very High >=190 Chute Puller ID - Performing Organization Address City/[facility]/Zipcode Phone Number [address] [address] CENTER Vitamin B12 and Folate (12/02/2019 1:17 PM CDT) Pathologist Sig nature Vitamin B12 290 213 - 816 pg/mL [facility] Folate 15.90 >=7.00 ng/mL [facility] Specimen Blood Narrative Performed At Chute Puller ID - [facility] ICAL [place] Performing Organization Address [facility] Phone Number [address] [address] CENTER Potassium (12/02/2019 1:17 PM CDT) Pathologist Sig [facility] Potassium 3.7 3.5 - 5.1 meq/L [facility] Specimen Blood Narrative Performed At Chute Puller [facility] Check Serum Phosphorus level 4 hours after IV phosphorus replacement. Check Serum Potassium level 30 minutes after IV potassium replacement completed. Performing Organization Address [facility] Phone Number [address] [address] CENTER TSH (12/02/2019 3:56 AM CDT) Pathologist Sig [facility] TSH 2.475 0.350 - 4.940 uIU/mL [facility] Specimen Blood Narrative Performed At Chute Puller ID - [facility] ICAL [place] Performing Organization Address [facility] Phone Number [address] [address] [place] T4, free (12/02/2019 3:56 AM CDT) Pathologist Sig nature Free T4 0.99 0.70 - 1.48 ng/dL [facility] Specimen Blood Narrative Performed At Chute Puller [facility] Performing Organization Address [facility] Phone Number [address] [address] CENTER Ethanol (12/02/2019 3:55 AM CDT) Pathologist Sig nature Ethanol Lvl <10 <=10 mg/dL [facility] Specimen Blood Narrative Performed At Chute Puller ID - DB [facility] Performing Organization Address City/State/Zipcode Phone Number [facility] [address] [place] [address] CENTER SARS-CoV2/RT-PCR (Symptomatic ONLY) (12/02/2019 2:04 AM CDT) SARS-COV2/RT-PCR Negative Not Detected, [facility] Negative, See [facility] external report CENTER for linked test SARS-COV-2 BSC [facility] PERFORMING LAB [facility] Specimen Other - Nasopharyngeal wall structure (b laila structure) Narrative Performed At Negative results do not preclude SARS-CoV-[address] [facility] infection and should not be used [...] the Act. Fact Sheet for Healthcare Providers: https://www.[employer]/Documents/Xpert%20Xpre ss%20SARS%20CoV-2/Fact%20Sheets/302-1340%20SAR S-COV-2%20HEALTHCARE%20PROVIDERS%20FACT%20SHEE T.pdf Fact Sheet for Healthcare Patients: https://www.[employer]/Documents/Xpert%20Xpre ss%20SARS%20CoV-2/Fact%20Sheets/302-3801%20SAR S-COV-2%20PATIENT%20FACT%20SHEET.pdf Performing Laboratory: [address] [place] [address] Performing Organization Address [facility] Phone Number [address] [address] [place] Drug screen, urine, comprehensive (12/02/2019 1:28 AM CDT) Specimen Urine Narrative Performed At This result has an attachment that is no t available. Lipase (12/02/2019 1:00 AM CDT) Pathologist Sig nature Lipase 264 (H) 8 - 78 U/L [facility] Specimen Blood Narrative Performed At Chute Puller ID - [facility] Specimen slightly icteric Performing Organization Address [facility] Phone Number [address] [address] [place] Amylase (12/02/2019 1:00 AM CDT) Pathologist Sig nature Amylase 159 (H) 25 - 125 U/L [facility] Specimen Blood Narrative Performed At [facility] - [facility] Specimen slightly icteric Performing Organization Address [facility] Phone Number [address] [address] [place] CBC with platelet count + manual diff (12/02/2019 12:59 AM CDT) Pathologist Sig nature WBC 8.1 3.5 - 10.5 K/L [facility] RBC 3.62 (L) 4.63 - 6.08 M/L [facility] Hemoglobin 12.8 (L) 13.7 - 17.5 GM/DL [facility] Hematocrit 36.5 (L) 40.1 - 51.0 % [facility] MCV 100.8 (H) 79.0 - 92.2 fL [facility] MCH 35.4 (H) 25.7 - 32.2 pg [facility] MCHC 35.1 32.3 - 36.5 GM/DL [facility] RDW 12.1 11.6 - 14.4 % [facility] Platelets 117 (L) 150 - 450 K/CU MM [facility] MPV 12.4 9.4 - 12.4 fL [facility] nRBC 0 0 - 0 /100 WBC [facility] Specimen Blood Performing Organization Address [facility] [address] [place] [address] CENTER after 05/01/2019 Insurance Payer Benefit Plan / Subscriber ID Effective Phone Address T ype Group Dates MEDICAID - MEDICAID [id number] 2018-Pres Medi caid MEDICAID [id number] ent Non-Co ntracte CARE d Advance Directives For more information, please contact: [phone] Code Status Date Activated Date Inactivated Comments Full Code 12/01/2019 11:46 PM 12/08/2019 7:58 PM This code status was determined by: Patient
--- OUTSIDE RECORDS SUMMARY | 2020-05-01 17:58 | XMS REPORT | Continuity of Care Document ---
:1960 Author Organization [facility] t Address [address] [place] [address] Care Team Providers Name Role Phone Pcp Primary Care Physician Unavailable Singer CHU Attending Clinician Davonte VAZ Attending Clinician Silas VAZ Attending Clinician Doctor Unassigned, Name Attending Clinician Unavailable YISSEL HILL Attending Clinician Unavailable Zoila VAZ, Yissel Johnson Attending Clinician Aria Barragan MD Attending Clinician Erick Montanez MD Attending Clinician Lilly VAZ Attending Clinician Rosa VAZ Attending Clinician Silas VAZ Admitting Clinician YISSEL HILL Admitting Clinician Unavailable Payers Payer Name Policy Type Policy Effective Date Expiration Date Sour ce Number MEDICAID - [id number] [facility] MEDICAID MGD 00:00:00 - [facility] [facility] [id number] -Present Medicaid Non-Contracted Problems Condition Condition Condition Status Onset Resolution Last Treating Co mments Source Name Details Category Date Date Treatment Clinician Date Alcohol Alcohol Disease Active GERMAN Garcia withdrawal withdrawal 11-30 Nahomy kes - 00:00: Medical 00 Center Allergies, Adverse Reactions, Alerts This patient has no known allergies or adverse reactions. Social History Social Habit Start Date Stop Date Quantity Comments Source Sex Assigned [facility] Tobacco use and 2019-12-08 2019-12-08 Never used [facility] Nahomy jimenez - exposure 00:00:00 00:00:00 [facility] Alcohol intake 2019-12-08 2019-12-08 Current drinker [facility] Tej Stoner - 00:00:00 00:00:00 of alcohol [facility] (finding) Alcohol Comment 2019-12-02 2019-12-02 1/4 anni longo [facility] Smoking Status Start Date Stop Date Source Former smoker 2019-12-08 00:00:00 2019-12-08 00:00:00 [facility] Medications Ordered Filled Start Stop Current Ordering Indication Dosage Frequency Signature Comments Components Source Medication Medication Date Date Medication? Clinician (SIG) Name Name furosemide Yes 1{tbl} QD Take [address] [facility] (LASIX) 20 8-11 tablet by Luke [facility] - MG tablet 00:00: mouth Medical 00 daily. [place] pantoprazol Yes 40mg QD Take [address] [facility] e 7-21 [facility] - (PROTONIX) 00:00: daily. Medic al 40 MG 00 [place] tablet folic acid Yes 1000ug QD Take 1,[address] [facility] (FOLVITE) 1 7-20 mcg by [facility] - MG tablet 00:00: mouth Medical 00 daily. [place] NIFEdipine Yes 30mg QD Take [address] (ADALAT CC) 7-20 by mouth [facility] - 30 MG 24 hr 00:00: daily. Medi rajan tablet 00 [place] venlafaxine Yes 37.5mg QD Take 37.[address] [facility] (EFFEXOR-XR 7-20 mg by [facility] - ) 37.5 MG 00:00: mouth Medical 24 hr 00 daily. [place] capsule lisinopriL Yes 30mg QD Take [address] (PRINIVIL,Z 6-22 by mouth [facility] - ESTRIL) 30 00:00: daily. Medic al MG tablet 00 [place] potassium Yes 20meq QD Take [address] [facility] [address] chloride SA 6-22 mEq by Herbie - (K-DUR,KLOR 00:00: mouth Medic al -CON) 20 00 daily. Center MEQ tablet Vital Signs Vital Name Observation Time Observation Value Comments Source Systolic blood 2019-12-08 11:40:00 129 mm[Hg] [facility] Diastolic blood 2019-12-08 11:40:00 76 mm[Hg] [facility] Heart rate 2019-12-08 11:40:00 110 /min [facility] Body temperature 2019-12-08 11:40:00 36.28 Ruma [facility] Respiratory rate 2019-12-08 11:40:00 18 /min [facility] Oxygen saturation in 2019-12-08 11:40:00 97 /min [facility] Arterial blood by Medical Ce nter Pulse oximetry Body weight 2019-12-06 05:30:00 106.6 kg [facility] BMI 2019-12-06 05:30:00 30.17 kg/m2 [facility] Body height 2019-12-03 19:31:00 188 cm [facility] Procedures Procedure Date / Time Performed Performing Clinician [facility] e RHYTHM STRIP - SCAN 2019-12-11 12:00:54 Provider, [facility] RHYTHM STRIP - SCAN 2019-12-10 08:20:08 Provider, [facility] TRANSFUSION SERVICE 2019-12-08 18:01:57 Provider, [facility] REPORT - SCAN [facility] BASIC METABOLIC PANEL (7) 2019-12-08 05:21:00 Edmund Hadley [facility] HEPATIC FUNCTION PANEL 2019-12-08 05:21:00 Edmund Hadley [facility] CBC W/PLT COUNT & AUTO 2019-12-08 05:21:00 SerObdulio leo [facility] Tej [facility] - DIFFERENTIAL [facility] TISSUE EXAM 2019-12-07 12:07:00 James Carr [facility] [employer]B CULTURE + SMEAR 2019-12-07 11:35:53 Lilly [facility] (NON-SPUTUM) [facility] ANAEROBIC CULTURE 2019-12-07 11:35:53 Lilly [facility] FUNGUS CULTURE + SMEAR 2019-12-07 11:35:53 Lilly [facility] SURGICALLY OBTAINED 2019-12-07 11:35:53 Lilly, [facility] - CULTURE + GRAM STAIN Medical Deloris ter SPIN/CONCENTRATION CHARGE 2019-12-07 11:35:00 James Carr [facility] LAPAROSCOPY,CHOLECYSTECTO 2019-12-07 10:40:[address] [facility] MAGNESIUM 2019-12-07 05:05:00 Yenifer Barragan [facility] PHOSPHORUS 2019-12-07 05:05:00 Yenifer Barragan [facility] COMPREHENSIVE METABOLIC 2019-12-07 05:05:[address] [facility] PT/APTT 2019-12-07 05:05:00 [facility] PROTHROMBIN TIME/INR 2019-12-07 05:05:00 Júnior [facility] CBC W/PLT COUNT & AUTO 2019-12-07 05:05:00 Obdulio Oakes [facility] - DIFFERENTIAL [facility] TYPE AND SCREEN, 2019-12-07 05:04:00 [facility] US ABDOMEN LIMITED 2019-12-06 23:17:00 Robert Sandra [facility] 2D ECHO W/ DOPPLER 2019-12-06 15:53:07 Yenifer Barragan [facility] (CW/PW/COLOR) [facility] XR CHEST 1 VIEW 2019-12-06 11:29:00 Yenifer Barragan [facility] PORTABLE/BEDSIDE Medical Center CT ABDOMEN/PELVIS WITH IV 2019-12-06 04:24:00 Gigi Barth ed [facility] CBC W/PLT COUNT & AUTO 2019-12-06 01:55:00 Obdulio [facility]akes [facility]ENTIAL [facility] MAGNESIUM 2019-12-06 01:54:00 Yenifer aBrragan [facility] PHOSPHORUS 2019-12-06 01:54:00 Yenifer Barragan [facility] COMPREHENSIVE METABOLIC 2019-12-06 01:54:[address] [facility] RHYTHM STRIP - SCAN 2019-12-05 12:20:06 Joradn Butterfield [facility] MAGNESIUM 2019-12-05 02:27:00 Yenifer Barragan [facility] PHOSPHORUS 2019-12-05 02:27:00 Yenifer Barragan [facility] COMPREHENSIVE METABOLIC 2019-12-05 02:27:[address] [facility] CBC W/PLT COUNT & AUTO 2019-12-05 02:27:00 Obdulio Oakes [facility] S t [facility]ukes DIFFERENTIAL [facility] ECG 12-LEAD 2019-12-04 05:36:50 Matthew Frances [facility] PHOSPHORUS 2019-12-04 03:57:00 [facility] MAGNESIUM 2019-12-04 03:57:00 [facility] BASIC METABOLIC PANEL (7) 2019-12-04 03:57:[address] [facility] CBC W/PLT COUNT & AUTO 2019-12-04 03:57:00 Obdulio Oakes [facility] S t [facility] HEPATIC FUNCTION PANEL 2019-12-03 18:22:00 Rere Nevarez CH I [facility] PHOSPHORUS 2019-12-03 18:22:00 [facility] MAGNESIUM 2019-12-03 18:22:00 [facility] BASIC METABOLIC PANEL (7) 2019-12-03 18:22:00 Mutucumarmartha, I [facility] TRANSFUSION SERVICE 2019-12-03 18:02:14 Provider, [facility] - REPORT - SCAN Scanning [facility] IRON, TIBC, % SAT. 2019-12-03 04:33:00 Obdulio Oakes [facility] (WITHOUT FERRITIN) [facility] 2019-12-03 04:33:[address] [facility] PHOSPHORUS 2019-12-03 04:33:00 [facility] MAGNESIUM 2019-12-03 04:33:00 [facility] METABOLIC PANEL (7) 2019-12-03 04:33:00 Bill, [facility] TRIGLYCERIDES 2019-12-03 04:33:00 Champ [facility] CBC W/PLT COUNT & AUTO 2019-12-03 04:33:00 Obdulio Oakes [facility] DIFFERENTIAL [facility] PHOSPHORUS 2019-12-02 16:40:00 [facility] MAGNESIUM 2019-12-02 16:40:00 [facility] BASIC METABOLIC PANEL (7) 2019-12-02 16:40:00 Bill, [facility] LIPID PANEL 2019-12-02 16:40:00 [facility] VITAMIN B12 AND FOLATE 2019-12-02 13:17:00 [facility]OT[facility] 2019-12-02 13:17:00 Champ [facility] MAGNESIUM 2019-12-02 13:17:00 Champ [facility] PHOSPHORUS 2019-12-02 13:17:00 Champ [facility] TYPE AND SCREEN, 2019-12-02 04:03:00 Champ [facility] s - AUTOMATED [facility] TSH 2019-12-02 03:56:00 Champ [facility] T4, FREE 2019-12-02 03:56:00 Serfelipa [facility] ETHANOL 2019-12-02 03:55:00 Serfelipa [facility] BASIC METABOLIC PANEL (7) 2019-12-02 03:55:00 Obdulio Oakes I [facility] MAGNESIUM 2019-12-02 03:55:00 Serfelipa [facility] PHOSPHORUS 2019-12-02 03:55:00 Champ [facility] CBC W/PLT COUNT & AUTO 2019-12-02 03:55:00 Champ [facility] ECG 12-LEAD 2019-12-02 02:21:46 Champ [facility] SARS-COV2/RT-PCR ([facility] & 2019-12-02 02:04:00 Apurva Hill Yissel [facility] - REF LABSFormerly [facility] DRUG SCREEN, URINE, 2019-12-02 01:28:00 Apurva Hill [facility] HEPATIC FUNCTION PANEL 2019-12-02 01:00:00 Apurva Hill CH, I [facility] BASIC METABOLIC PANEL (7) 2019-12-02 01:00:00 Apurva Hill [facility] LIPASE 2019-12-02 01:00:00 [place] Yissel [facility] PROTHROMBIN TIME/INR 2019-12-02 01:00:00 Apurva Hill [facility] MAGNESIUM 2019-12-02 01:00:00 Apurva Hill [facility] PHOSPHORUS 2019-12-02 01:00:00 Champ [facility] AMYLASE 2019-12-02 01:00:[address] [facility] CBC W/PLT+MANUAL DIFF 2019-12-02 00:59:00 Apurva Hill [facility] CBC WITH PLATELET COUNT + 2019-12-02 00:59:00 Apurva Hill [facility] - MANUAL DIFF [facility] CBC W/PLT COUNT & AUTO 2019-12-02 00:59:00 Apurva Hill CH I [facility] - DIFFERENTIAL [facility] Plan of Care Planned Activity Planned Date Details Comments Source Future Scheduled 2022-12-01 Lipid panel [facility] Luke s - Test 00:00:00 (procedure) [code = [facility] [id number]] Future Scheduled 2019-12-[address] [facility] - Test 00:00:00 (#1) [code = [facility] INFLUENZA VACCINE (#1)] Future Scheduled 1960 Screening for [facility] - Test 00:00:00 malignant neoplasm Medical C enter of colon (procedure) [code = 773619880] Encounters Start End Encounter Admission Attending Care Care Encounter Source Date/Time Date/Time Type Type Clinicians Facility Department ID 2020-04-28 2020-04-29 [facility] Dustin Burgossang LEDEZMA [id number] 16:53:00 15:00:00 Encounter Angel Arauz [id number] Nathen Rosen [id number] [place] [address] [id number] 2020-03-19 2020-03-19 Emergency E MHBL MHBL [id number] MHBL 10:04:00 10:04:00 2020-02-24 2020-02-24 Emergency Burgos [facility] [id number] 09:24:00 15:34:00 Alcides Meloton [id number] Cornelia [id number] [place] [address] [id number] 2020-02-24 2020-02-24 Orders Doctor JOSÉ MIGUEL [id number] 00:00:00 00:00:00 Only Unassigned, OLGA [id number] [facility] 4.2.7.2.686 [id number] 2020-01-09 2020-01-09 Orders Doctor JOSÉ MIGUEL [id number] 00:00:00 00:00:00 Only Unassigned, OLGA [id number] [facility] [id number] [id number] [id number] 2019-11-20 2019-11-20 Orders Doctor JOSÉ MIGUEL [id number] 00:00:00 00:00:00 Only Unassigned, OLGA [id number] [place] [id number] 2019-10-07 2019-10-07 Telephone [facility] [id number] 00:00:00 00:00:00 Kye Muñoz [id number] [place] 4.2.7.2.686 [facility] [id number] [address] 2019-10-07 2019-10-07 Orders Doctor JOSÉ MIGUEL [id number] 00:00:00 00:00:00 Only Unassigned, OLGA [id number] [place] [id number] 2019-10-06 2019-10-06 Telephone [facility] [id number] 00:00:00 00:00:00 Kye Muñoz [id number] [place] [id number] [facility] [id number] [address] Results Test Description Test Time Test Comments Results Result Comments Source AFB culture + smear (non-sputum) 2020-01-19 11:11:00 Test Item Value Reference Range Interpretation Comme nts Result (test code = 6463-4) No acid-fast bacilli isolated in 42 day s AFB Smear (test code = 23420-7) No acid fast bacilli [facility]-SPUTUM)2020-01-19 11:11:00 Test Item Value Reference Range Interpretation Comments CULTURE (BEAKER) (test No acid-fast bacilli code = 1095) isolated in 42 days AFB SMEAR (BEAKER) No acid fast bacilli (test code = 994) seen Fungus culture + [id number] 17:19:00 Test Item Value Reference Range Interpretation Comments Result (test code = No fungus isolated in 6463-4) 28 days Fungus Smear (test No fungal elements seen code = 1406) [facility] [id number] 17:19:00 Test Item Value Reference Range Interpretation Comments CULTURE (BEAKER) (test No fungus isolated in code = 1095) 28 days FUNGUS SMEAR (BEAKER) No fungal elements seen (test code = 1406) Anaerobic [id number] 18:40:00 Test Item Value Reference Range Interpretation Comments Result (test code = 4+ Clostridium A 6463-4) perfringens Lab Interpretation (test Abnormal code = 42197-1) [facility] [id number] 18:40:00 Test Item Value Reference Range Interpretation Comments CULTURE (BEAKER) (test A 4+ Cl ostridium perfringens code = 1095) SURGICALLY OBTAINED CULTURE + GRAM [id number] 09:30:00 Test Item Value Reference Range Interpretation [...] gram positive (BEAKER) (test code = rods 043494) Tissue [id number] 13:23:00 Test Item Value Reference Range Interpretation Comments Case Report (test code Surgical Pathology = 104) Report Case: [id number] Authorizing Provider: James Carr MD Collected: 12/07/2019 12:07 PM Ordering Location: [address] Received: 12/08/2019 10:06 AM Service Pathologist: Syl Rg MD Specimen: Gallbladder DIAGNOSIS (test code = [id number] 3220) FuZzEwMzNcZnRuYmpcdWMx GOceeiVbXDkta7YcX5EpKo AwMFxhbnNpXGRlZmxhbmcx ABJqLUB1wsAcIKArWQzvZW JwOXeyUx6vvGUqcWebGaWo HPWkk3pkfkRUzsunpKd9v7 ryYWXxJoO6vUCjFVwzG2dz wlNxmXVkOKZyDPy9gW90UN DkyQ8hsBAcHSrfqzKuIpQ3 AEdaMDRhIsP2HUCmwIZwZW KwB1qfHVLiNXiwEETbWBdr fLCvMFQ2bOgex1E7tIVsfZ JvtHugDuLgXzOrMSZQs0Nj PVl4zRcqE6OkTDAnGnC1aR QgUGFyYWdyYXBoIEZvbnQ7 tF05DUarqqY0zMMdm7Aup1 8rz660bA2fdWLlYMV9GZUd ORGgpHEoWOYuEOU5RIMhpP CpA0k0JhIbbNArN9X5RvAj iOJwC3Z8ToGnjQIdL4G5Jz QbxLBnDCMogAKvKg9vhWRw tHSrsa0xkp85QKK4m2KrfI foOLD3KHW9MeWjEr9itEOw WOOjNH3rWiKtaAHoFCPxvd 52fGlsJLtnswLazZ4eOzAa PTOznENoXMAwLI2raKFtWX KebZ3sjchdXLUcNyLpggov VKZhbDppzrVbEx7ipAtsGG W6CYyhD0bhmO4iVeK1EVqc T0jftE0uCNv6HYmkgEM3OJ PbgI2aXN6dhmslj8zhXmJr LS7bpileb1suLoOrDJ4khz w0k9lfEtUrFW2irdkvs6lj NzIwXGhlYWRlcnkwXGZvb3 NnilsjNJByr9OlN9LekNqc L90ftXmuV13gGZEdwJcngA 4bpBjeuU2kJzUrZoEbWZms bFxwbGFpblxmMVxmczIwXG wnhpobOFFvCEcmX6epCmGh PBJqmUwpXFint2QeADIvAB MjNaQsXA0dO1KNXVHBROZW RHAoAVpYBPAKF9NHF4WCQd EZAW2CVJRNN7FHI3KKSOs6 XHBhciAtICBDSFJPTklDIE UGB0bEX9wNXMsTDIXaxMNx UN1bOONEW6vABGzQHSaLP0 lTXHBhciAtICBDWVNUSUMg DHEMQPSUYFQBVQ2fXYGQPm VNQVJLQUJMRVxwYXIgLSAg ExNPNINOSqCoFs2PHAPET0 WRKTGJFVQPYsEZUUpOQ47M QaCUPKOwlj92HNE9IlZrf1 T6XBD3LYZoHWLaf9cmQDMt bGFuZzEwMzNcZnRuYmpcdW RkFLGkBgVcb6glq407zLAa m2wrEPBzJqZ0bJEyZAGvkL IaU671CIQcYMkym5bpv7Ce PVGheTXiw1W9IMKPoyqnvP g9sWepY04wb7Y9UyjbZ1mw VETgPLCcY0AcPY0fZAXhVo p6VTN6FIW0TLXwROTvJ2Yr VH3iZTSjrVUrGMl6u2kcjZ qiUVKuHQF9v0vcJOqviaAo TY0gjl9nbGh3b5tmjaMnCO RvRTJdoWVNXYXpX0WdyAkd Xx0nmOy4fHqbTrjqGTS4Qk o9AJ5srf10sih7xSwfXGWh ynnwScD5IJdcYYEnnnvgWL s3VWykVZGtkQK7ERDfdWJk W4OhSVOjHG5ufky5DCW1XM tuGXKqDqF3NXVtaZEeKMQx iQatUNaxl345HPG3ZzIzQH 4eU6Ush6Z7hT0fmXAjYIDs uMXdBoEnJPZqid9cfJIuPH rlj3CpWXH6rzR3fHSkeVGf ORRlAnD0UDwfLX9bbs24SN TnMZB3bv1edSTobFvtumJs hGOvRCvqJ0ExMVZde405OL TsT6CcCUWwv6P7sjPdNcRv MCCfdJR8ioH7WJOgCQ7tyd tdi9ybUHcnGKabYNJdlsX1 fwR2VYErnNXoO5FymU0qRU JhSW4nddrjz7ttNOO5PEbg QDGvIIK2QkMoAKUbh0Hkwe x0KxRgi6AwlNWwZHwcO48n w442ZQOzarMyB8adqGFvfc ggrKMdwzagTGlvmtN5BOGk FCtzvkgcNZUjURyuM4zxRf NqYFEanEfaBWwlg8NmDXEr OGSdOcOhfWGdFQKsFee9BZ YwsHGaQDLfJzHsP8eflgdd YwRUVINaj1jzN8gtiASNsG OcK4AtLRvpiuWaOUpvJUtr KZV1KYY9Ns57AzO4PLGrhk 19 CPT Code(s) (test code b1lqvEXwIWDirILoYgMoWL = 3357) SbLLQyx6fbLPHyvPEzUsMa MzNcZnRuYmpcdWMxXGRlZm Vrd9vir709kLOvm6xnYZEq DwY4eUHsFABpyQBoS252y4 eyl5elwmZqfHU8MKYfHBX1 KMazdmKizoM1CTpbeFKoWa G6XZhqdxJmGUdombDbfjDj Vqr0BYLdF602KCU9hHmgw6 sgCZT3JAZaFYYpRoIlLy8x eCIyV965DBImFFSCHAWjoN x6XJLdkrXguxMzaHCLt492 B328d0fqFLUuwyNooCmGic ala1rjT042KBStpMFuciDj ViBdNOZmeCSqbKZ2ZUJrQN 9rzcfqTlYfOA9fvgawGvJa QN0fbry8DuFfYF9mmacvIa TaOWufVLOsmmwaXUWyl8Nx mlolCY1gV1Tzq2I5fS5ldX JkUZLtnMUjNcZwMFRgry2c hKPdKSdxs4BuNDU4puG6wN AdsJSfYCWmAL11Zmncc8Mf AjxbGNU7SQZtcmXxm4Lpz5 eaLxXvuzDpK6mdN4MtMIGd TJJcOVFvYxDtgtYtf9Cxv0 UkyUGvyGx3y9dfHXUoFXGg oVqps8vdCQG0MHGhF3R0pZ Eje4baUOopMOBvaIC5mwnu APtaVMVsyyI4wtxzMWvxLZ IulAP3tvgbBYhqUKEiKaE4 uiugCJziFRVnXPH5IPtqk4 42PNN1QGhaNhprDOmqVHFw bmNvbnRccGduZGVjXHBsYW luXHBsYWluXGYwXGZzMjRc xUetiDamzH9mCvLoRwQsDU rmXK3eTDSnL3gtjDYcSETe NLJkG6xkKzQycX4plVazEZ mksgKdZOs5YmS9VFGpgq7= CLINICAL HISTORY (test s4ismTIaNMGjjHYhXzBbGF code = 3356) DdREPks7tqWFOlsVUfAbKr MzNcZnRuYmpcdWMxXGRlZm Yxn5ksw255jSNdz7ycDTTu VcA9sJPiLCTfmDOfA653o4 gfp7vwrvLauLX8LJVwQMZ8 AMwrmhAjzxH4PHtweZOrTk L0HFnecmCiSVsxbrElnySk Jtn2RWOcS722FSV5jEqdj6 evPEZ8ETWhFKXfPpAfUx7n pWYmZ132QQKdRGCIHUJwfL v1VCOaywYbjvWoqJSUp025 Y396p2jhVMIzdsUbbRvQzn bdv8ztB312VKTcxRThwnHg PuEsLRYgjSPgvLX4ILTiXA 8mdrwnTmMrEB2bvmssTrYr HF7tvar6LuWyOG2rlqvnAe WcKQnaKPJntjthLONfw3Xd dvioQE4pN5Jqn7F6iU9szJ ApMTMwuFUpHkAuDGOgjp4b dYUmUQehf7VaIHX6lrU7tB MrvLOnFTEbAF83Thfes6Wc QzhyVFR1FUPjjzEgg1Vjz7 ayVgGqcqXkM0waI0EsBDJi BZJyWMWcAqWxcxSti7Vzb5 LbsUUdyHt6j6mkSDZmTULr zJtrc5qxYIO1PQDlE0O9lH Qtx5diFWbaUADskRE5tqkz GLtsPGPzmiW2wgzwESjjMB RnqQO8ygsvBRfpJOXtZtL5 qtbkXMvjIJSkQCT5VOrgm3 94HUR5OHaaAvrxLAteSFIi bmNvbnRccGduZGVjXHBsYW luXHBsYWluXGYwXGZzMjRc dJhgrQhifS1oOrVcYyFjUX raQW2uLKQtL1miaVRkIPXk WAFiM3wcXoPuqJ6cgVzwDZ dtvkAcGTSbq4ajJ8fkyDk7 aXMuXHBhcn0= SPECIMEN SOURCE (test d5mlbGWuPTGvjNQkKgGqQK code = 3377) XdBPPul3lkHRMcrXMrWsRl MzNcZnRuYmpcdWMxXGRlZm Yrs9qmw714tCUmc6uhUHDl TnL0cHIlUDSrnHXiW605z1 qce4isshXxpMM5KFAnGJI5 CXbauhOchuP7WZwizCIhKl Q9SZqazqXiZVkadrFnenXp Jur5SRZqG933SBQ7aDodz7 voLRB2UWVrIQMtNcIxWm4s uZLyN969KOCoNQENJJPlcC j6NCFzumOmqpAphUEQz093 J724s9raMLKdajGnlJiXqp nut8gcA328NALmrGYtqtTs QeUrYOHhzIWnuRZ5AWUfLV 9eyptfIoNlZU1wdxcfCgLm CZ5fcgs3HaLhJI2hrcqeWs EvQDxxIVNhdaoiLXMtm5Bv jfhjAR0pQ4Fkt7N8qS0akH UcQUBycOOiZdObUCWyul2r qHZtNMvpc2LfRNI1gfU7jZ NkuIXkRCNbNN92Ktyxa1Su VyuqVDP8WPYwnmSpn0Ega9 wdZbJohdCvI2wpT3CuLLYi KRTvZHRpKoShxgSit0Adm1 TqaILjbVd5n1tgXXVeQSVs mJfye3izQZR4IOFoH4T5tW Nsr8gsMYdfTGGwrDM1dhuf INrsMUZndpT6ftgmUEfwSI WjrWF4npxpDWvoACTzTcR7 gjzaGQbsVYSuBXG4VSxsf6 09UKO4FFmoXetlHVewIQLf bmNvbnRccGduZGVjXHBsYW luXHBsYWluXGYwXGZzMjRc bKnkeGloiC5ePyImUhTkPH tpVG0uSHGrL1rjwFIxKPXg VJAcH7ezVvFuyU7ciWzvSN xmczIwIEdhbGxibGFkZGVy IFxwYXJ9 GROSS DESCRIPTION (test d3vqlHSnSAKmfONtSiTxZT code = 3366) VhCTIqt3jbPUTstPSrHgTu MzNcZnRuYmpcdWMxXGRlZm Tgg7rkv182bQAqz4tuLVXa ViB9qQRlBOTflHGsV295g1 rgz5njzaUfnGR9TCDhEYH1 PUdecuRwgfW1EJogyYPhPs R5YLzpamIuYUxewnWgbdIg Lqw6KFWhM988RQC9nMlpz6 rvEYV8THOxBPJqAuBuGi4d nALjH148EDBwUZXQOCIqdF o6ITPrzrOinbXfsQDUv227 N651i2pgJHHcggEecMzXpx mad5kbU677EGDhrCZastQd NzCuLDShfXErfMQ6TMIaKB 4rxzokUeZeDN9ijqhsDfEk KK5wfxz0CtNyAQ2khfokXw OxNBepLPEmqdzlCOUft9Xx mdvrVZ8wH9Ilr1J0aO9taD EhIFIaeHZfYwAmHDEorj5w iRLgFAlqj5RqJJU2eyZ9qO GtjSGzXAOwIX78Zijyy6Zs LojoWEU9WOFqhoKpg7Xyj1 mkPtVzyaMoG5dtF5OkDEIp YKEvQXFpMgVqsjVps3Nmd3 GkhPYqfUo6d4jyLBYvTKVu lPpyb4gvFYB4SSJaG6N9gY Acp7zfGPckWKInjLF3fayb MCqsYJWevxK0gwkrNZnlLN CudFM0lwwiJYtxZDFmAvB8 usyqOGfrMMOmHTB3MDxzx5 20TGJ6HPeeDufjQYtxNRDz bmNvbnRccGduZGVjXHBsYW luXHBsYWluXGYwXGZzMjRc kTunwLnrzC5mJaGmQaPmFH yxUW2fWRQyU6kauPHpIUFz YFDkU9juKsSijE4tgLxeGM mcaoKvJQXtU2QahtTbYKdg RSGvxk4iqNnfETpxWaJzHP Vuy2f6lAW4iDHfbVP1pYVb tDyzJB9uaFRrKTPqR4Yes3 dyzjPoxQ5sEIXcLP7nSCBr YWxsYmxhZGRlciIgaXMgYW 7hCD46DUwaUg9fJXdbBC5b IGNtIGludGFjdCBnYWxsYm ylVJEazyX5lGEuNHVbWN2r PEXzGCvtJWovleg4zRN2TA AuMiBjbSBpbiBkaWFtZXRl lmOihTBeS4hmGAWekEN2hT EkWJBnuF8cYSroFRNtpu5d TKZyrdJ5KWvrf7ebtVdnby xaw22wx3QtHTNyFKHlgXDf cmVtaWMuIFRoZSBzcGVjaW 1vivTqbhBczAEePFFtuH3y wmB3FIBwIKKkvIPmnMouFH FeiVgsHdBsOYTtYwK7NKwe m5opEgwlJUJziaKaNIBzVl ZryRKzAxOfuOXyRjIvF40a ATpkceSoBAXnYM6lNFMsNU KdICDki7ExsHY0IMXoO0Dh U9CueC5qBUkbcgSbIHGdMH 0dRFEnjXQ9wMhglG6xF5Ix EHuqiLuqexP4uJNjT8uosE tuJIX0S5RbSOEmSQEeaPPg i0CitSGaiKRdFJuloSebqa syVi0yNOpatIN1zeIzQYZ2 xMQ2XRGuJB2nEPPzgFPlmD srSKFnOGX9RGocEA0jHDM7 cmVzIHVwIHRvIDAuNCBjbS A8qEyxwn0xYqFifhHjSE31 PUMiyeSfp7JkrRibhyZzTF IuIXS8Jl0yaOKjIIRlvhRM GV8MVel4kAWsRYKxIVEffn neOMSlePF5uVKzRKHwmZDi WCKbkR3utD5qQFKrPWZGZ3 E3REhaYJN3 MICROSCOPIC DESCRIPTION n7bwjLQnKTVvkWBySyExZD (test code = 3371) RaSIYqa7phWGGwdQVsImNa MzNcZnRuYmpcdWMxXGRlZm Rsi4xtp528yCJgn6inBDBa HhY7uJOlETBsvFVlN184s3 mrf0tsepYpkEA9IRUuLYI3 DLmayaJbyfI2NOsugKXeBr B2DXqoedHaBCndjdZjqtZw Bjd2HYYxH469UJD9eAfca9 lnHLW1UNLeERNgElXoXo2e hUPeU082FURhVKDWVEAheZ w4SZBfgyChyhSjhECFw161 K698e4qaSIMutqShvIsSkq iyw1chO524ADRyvWFnapWr JfIkHERhvWNywLE3UYCzTS 9irxudQjYtUP5vmzvoTcYf HS3jhrc2YhPzOK4fdpksRs YiVPrrZORbauadUBJcf9Ni ojiqOS8qL1Ozj8T5mQ4moU YbTIHcaJQtEbYdFBYfje4y iWDbGWaej1DmGTY8koD0eP UgsXShUUGlHG26Rhnap0Tm FqvmOXD0IBCazgZjt5Rfr5 lcIsFygzOmO8gqD1OwIXIs CLJkALGoLjOffbKdd7Rul4 IubXJvcWx4a0cpZYEdAFMr lAxux6ddOUS4XWIwQ2B2fH Szi7stUIyeKDEedIH6plri JKmzZEIirfN5abnvAAcbPB FvlLG0okeiPUyaCFOrIkL6 dhhiZZtsZEAwYZS0FZegl5 71WOV5ELxrLlegPYwbRILp bmNvbnRccGduZGVjXHBsYW luXHBsYWluXGYwXGZzMjRc aFmefWrvpC1cZlVjDmQpRJ wcJM6lVJYfF2yneQGrXSYp GFUiP8vuQsIumT5ufCswGN zkzdRlHZQkjpHkzy3qNJ1e cGFyfQ== [id number] 13:23:00Surgical Pathology Report Case: [id number] Authorizing Provider: James Carr MD Collected: 12/07/2019 12:07 PM Ordering Location: [address] Received: 12/08/2019 10:06 AM Service Pathologist: Syl Rg MD Specimen: Gallbladder A. GALLBLADDER, LAPAROSCOPIC CHOLECYSTECTOMY:- CHRONIC CHOLECYSTITIS- CHOLELITHIASIS- CYSTIC DUCT MARGIN, UNREMARKABLE- NEGATIVE FOR DYSPLASIA OR MALIGNANCY Signing Pathologist Direct Phone Line: [phone] signed by Syl Rg MD on 12/10/2019 at 1:23 [id number] Received in formalin labeled with the patient's [...] wall measures up to 0.4 cm thick. [employer] sections are submitted in A1-A2,with the inked cystic ductmargin in A1. PA/ew Performed. SPIN/CONCENTRATION [id number] 15:19:00 Test Item Value Reference Range Interpretation Comments Concentration charged (test code = Done 2657) [facility] [id number] 15:19:00 Test Item Value Reference Range Interpretation Comments CONCENTRATION CHARGED (BEAKER) (test Done code = 2657) Basic Metabolic [id number] 08:41:00 Test Item Value Reference Range Interpretation Comments Sodium (test code = 137 meq/L 347-921 9962-2) Potassium (test code = 4.8 meq/L 3.5-5.1 2823-3) Chloride (test code = 106 meq/L 98-107 2075-0) CO2 (test code = 16 meq/L 22-29 L 2028-9) BUN (test code = 8 mg/dL 7-21 3094-0) Creatinine (test code 0.91 mg/dL 0.57-1.25 = 2160-0) Glucose (test code = 105 mg/dL 70-105 2345-7) Calcium (test code = 8.9 mg/dL 8.4-10.2 09304-6) EGFR (test code = 86 mL/min/1.73 [place] [address]-9) NOT ACCURATE CREATININE CLEARANCE IN PREDICTING GLOMERULAR FILTRATION RATE . ESTIMATED GFR I S NOT APPLICABLE FOR DIALYSIS PATIENTS. SOFY (test code = SOFY) Electric Powerline Examiner ID - LANEY Lab Interpretation Abnormal (test code = 28888-8) [facility] function [id number] 08:41:00 Test Item Value Reference Range Interpretation Comments Protein, Total (test code 7.0 6.0- 8.3 gm/dL = 2885-2) Albumin (test code = 3.2 g/dL 3.5-5 L 67773-4) Total Bilirubin (test code 0.6 mg/dL 0.2-1.2 = 1975-2) Bilirubin, Direct (test 0.5 mg/dL 0.1-0.5 code = 1968-7) Alkaline Phosphatase (test 128 U/L 40-150 code = 6768-6) AST (test code = 1920-8) 124 U/L 5-34 H ALT (test code = 1742-6) 56 U/L 6-55 H SOFY (test code = SOFY) Electric Powerline Examiner ID - LANEY Lab Interpretation (test Abnormal code = 13332-7) [facility]areHEPATIC FUNCTION [id number] 08:41:00 Test Item Value Reference Range Interpretation [...] code = 56 U/L 6-55 H 347) Electric Powerline Examiner ID - [facility] [id number] 08:41:00 Test Item Value Reference Range Interpretation [...] S NOT APPLICABLE FOR DIALYSIS PATIEN TS. Electric Powerline Examiner ID - LANEY MCBC with platelet count + automated [id number] 05:58:00 Test Item Value Reference Range Interpretation [...] 450 K/CU MM MPV (test code = 68004-2) 12.4 fL 9.4-12.4 nRBC (test code = [...] 2801) Lab Interpretation (test code = Abnormal 49974-8) [facility] W/PLT COUNT & AUTO [id number] 05:58:00 Test Item Value Reference Range Interpretation [...] 417) IMMATURE GRANULOCYTES-RELATIVE 1 % 0-1 PERCENT (BEAKER) (test code = 2801) 2D Echo W/Doppler(CW/PW/Color)2019-12-07 11:47:32Ejection FractionSLEH ECHO HEARTLAB MKCKESSON CPACSInterface, External Ris In - 12/07/2019 11:47 AM C DTTransthoracic Echocardiography Report (TTE) Demographics Patient Name TREMAINE MONTANA Date of Study 12/06/2019 Gender Male Visit Number [id number] Race Unknown Room Number 734 NumberDate of 1960 Referring Physician Yenifer Barragan Age 59 year(s) [employer] Clerk Zina Reza RDCS Vascular Surgeon Misbah Gao Interpreting Ja Doe MD Procedure [...] TR Velocity: 2.44 m/s TR Gradient: 23.81 mmHgAdventist Health TulareType and screen, [id number] 06:53:00 Test Item Value Reference Range Interpretation Comments ABO/RH AUTOMATED (BEAKER) (test A NEGATIVE code = 2260) Ab Scrn (test code = 890-4) NEGATIVE [facility]areComprehensive metabolic [id number] 06:29:00 Test Item Value Reference Range Interpretation Comments Protein, Total (test 6.1 6.0- 8.3 gm/dL code = 2885-2) Albumin (test code = 2.8 g/dL 3.5-5 L 72409-2) Alkaline Phosphatase 118 U/L 40-150 (test code = 6768-6) Total Bilirubin (test 0.5 mg/dL 0.2-1.2 code = 1975-2) Sodium (test code = 137 meq/L 995-414 1186-2) Potassium (test code = 3.9 meq/L 3.5-5.1 2823-3) Chloride (test code = 105 meq/L 98-107 5-0) CO2 (test code = 26 meq/L 22-29 2028-9) BUN (test code = 4 mg/dL 7-21 L 3094-0) Creatinine (test code 0.79 mg/dL 0.57-1.25 = 2160-0) Glucose (test code = 93 mg/dL 70-105 2345-7) Calcium (test code = 8.5 mg/dL 8.4-10.2 20987-7) AST (test code = 80 U/L 5-34 H 1920-8) ALT (test code = 39 U/L 6-55 1742-6) EGFR (test code = 101 mL/min/1.[place] [address]-4) NOT ACCURATE CREATININE CLEARANCE IN PREDICTING GLOMERULAR FILTRATION RATE . ESTIMATED GFR I S NOT APPLICABLE FOR DIALYSIS PATIENTS. SOFY (test code = SOFY) Electric Powerline Examiner [facility] Lab Interpretation Abnormal (test code = 39950-4) [facility]areMagnesium2020-08-23 06:29:00 Test Item Value Reference Range Interpretation Comments Magnesium (test code = 1.4 mg/dL 1.6-2.6 L 67799-6) SOFY (test code = SOFY) Electric Powerline Examiner [facility] Lab Interpretation (test Abnormal code = 03578-7) [facility]arePhosphorus2020-08-23 06:29:00 Test Item Value Reference Range Interpretation Comments Phosphorus (test code = 4.9 mg/dL 2.3-4.7 H 2777-1) SOFY (test code = SOFY) Electric Powerline Examiner [facility] Lab Interpretation (test Abnormal code = 08561-8) [facility]arePHOSPHORUS2020-08-23 06:29:00 Test Item Value Reference Range Interpretation Comments PHOSPHORUS (BEAKER) (test code = 4.9 mg/dL 2.3-4.7 H 604) Electric Powerline Examiner ID - [facility] [id number] 06:29:00 Test Item Value Reference Range Interpretation Comments MAGNESIUM (BEAKER) (test code = 1.4 mg/dL 1.6-2.6 L 627) Electric Powerline Examiner [facility] MCOMPREHENSIVE METABOLIC [id number] 06:29:00 Test Item Value Reference Range Interpretation [...] S NOT APPLICABLE FOR DIALYSIS PATIEN TS. Electric Powerline Examiner ID - LANEY [facility]BC W/PLT COUNT & AUTO [id number] 06:12:00 Test Item Value Reference Range Interpretation [...] 0-1 PERCENT (BEAKER) (test code = 2801) PT/[id number] 05:55:00 Test Item Value Reference Range Interpretation Comments Protime (test code = 13.1 11.9- 14.2 5902-2) seconds INR (test code = 1.02 <=5.90 6301-6) PTT (test code = 34.5 22.5- 36.0 59659-7) seconds SOFY (test code = SOFY) Effective 09/11/2018: PT Reference Range ChangeNew: 11.9-14.2 Previous: 11.7-14.7 RECOMMENDED COUMADIN/WARFARIN INR THERAPY RANGESSTANDARD DOSE: 2.0-3.0 Includes: PROPHYLAXIS for venous thrombosis, systemic embolization; TREATMENT for venous thrombosis and/or pulmonary embolus.HIGH RISK: Target INR is 2.5-3.5 for patients wiht mechanical heart valves. Lab Interpretation Normal (test code = 23410-1) [facility]arePT/[id number] 05:55:00 Test Item Value Reference Range Interpretation [...] is2.5-3.5 for patients wiht mechanical heart valves.Prothrombin time/[id number] 05:54:00 Test Item Value Reference Range Interpretation [...] valves. Lab Interpretation Normal (test code = 96457-4) [facility]arePROTHROMBIN TIME/[id number] 05:54:00 Test Item Value Reference Range Interpretation Comments PROTIME (BEAKER) (test code = 13.1 seconds 11.9-14.2 759) INR (BARBARA) (test code = 370) 1.02 <=5.90 Effective 09/11/2018: PT Reference Range ChangeNew: 11.9-14.2 Previous: 11.7- 14.7RECOMMENDED COUMADIN/WARFARIN INR THERAPY RANGESSTANDARD DOSE: 2.0-3.0 Includes: PROPHYLAXIS for venous thrombosis, systemic embolization; TREATMENT for venous thrombosis and/or pulmonary embolus.HIGH RISK: Target INR is2.5-3.5 for patients wiht mechanical heart valves.U/S, ABDOMINAL, [id number] 00:44:00Abdomen limited area? Add comment if clarification [...] MDReport Verified Date/Time: 12/07/2019 00:44:30 US abdomen [id number] 00:44:00Interface, External Ris In - 12/07/2019 12:46 [...] Esdras Mir Veri fied Date/Time: 12/07/2019 00:44:30 [facility], 1 VIEW, NON [id number] 12:00:00Reason for exam:->preop clearanceShould this be performed [...] Hager Verified Date/Time: 12/06/2019 12:00:14 Reading Location: [address] Transitional Reading Room XR chest 1 view portable / [id number] 12:00:00Interface, External Ris In - 12/06/2019 12:02 [...] of acute cardiopulmonary disease. Signed: Andrea Hager MDReport Verified Date/Time: 12/06/2019 12:00:14 Reading Location: [facility] C013T Transitional Reading Room [facility] CenterCT, [id number] 05:11:00 Unlisted Reason for Exam - Click [...] of contrast versus hepatic steatosis. Signed: Simon Laleport Verified Date/Time: 12/06/2019 05:11:12 CT abdomen/pelvis with IV [id number] 05:11:00Interface, External Ris In - 12/06/2019 5:14 [...] timing of contrast versus hepatic steatosis. Signed:Simon Laleport Verified Date/Time: 12/06/2019 05:11:12 [facility] GardensCOMPREHENSIVE METABOLIC [id number] 03:32:00 Test Item Value Reference Range Interpretation [...] S NOT APPLICABLE FOR DIALYSIS PATIEN TS. Electric Powerline Examiner ID - LANEY [id number] 02:50:00 Test Item Value Reference Range Interpretation Comments PHOSPHORUS (BEAKER) (test code = 3.3 mg/dL 2.3-4.7 604) Electric Powerline Examiner ID - LANEY [id number] 02:50:00 Test Item Value Reference Range Interpretation Comments MAGNESIUM (BEAKER) (test code = 1.3 mg/dL 1.6-2.6 L 627) Electric Powerline Examiner ID - LANEY MCBC W/PLT COUNT & AUTO [id number] 02:21:00 Test Item Value Reference Range Interpretation [...] 0-1 PERCENT (BEAKER) (test code = 2801) ECG 12 [id number] 21:52:28Interface, External Ris In - 12/05/2019 9:52 PM CDTVentricular Rate 118 BPMAtrial Rate 118 BPMP-R Interval 198 msQRS Duration 72 msQ-T Interval 330 msQTC Calculation(Bazett) 462 msP [place] 65 degreesR [place] -14 degreesT [place] 32 degreesSinus tachycardia with Premature atrial complexesOtherwise normal ECGWhen compared with ECG of 02-DEC-2019 02:21,No significant change was foundConfirmed by MD ELIDA, CAMPBELL (190) on 12/05/2019 9:52:27 [facility] CenterPHOSPHORUS2020-08-21 02:59:00 Test Item Value Reference Range Interpretation Comments PHOSPHORUS (BEAKER) (test code = 3.5 mg/dL 2.3-4.7 604) Electric Powerline Examiner ID - NEREIDA [id number] 02:59:00 Test Item Value Reference Range Interpretation Comments MAGNESIUM (BEAKER) (test code = 1.4 mg/dL 1.6-2.6 L 627) Electric Powerline Examiner ID - NEREIDA LCOMPREHENSIVE METABOLIC [id number] 02:59:00 Test Item Value Reference Range Interpretation [...] S NOT APPLICABLE FOR DIALYSIS PATIEN TS. Electric Powerline Examiner ID - PIAYA LCBC W/PLT COUNT & AUTO [id number] 02:42:00 Test Item Value Reference Range Interpretation [...] 0-1 PERCENT (BEAKER) (test code = 2801) [id number] 04:50:00 Test Item Value Reference Range Interpretation Comments MAGNESIUM (BEAKER) 1.4 mg/dL 1.6-2.6 L Specimen slightly (test code = 627) hemolyzed Electric Powerline Examiner ID - [id number] 04:50:00 Test Item Value Reference Range Interpretation Comments PHOSPHORUS (BEAKER) 3.2 mg/dL 2.3-4.7 Specimen slightly (test code = 604) hemolyzed Electric Powerline Examiner ID - EDASIBASIC METABOLIC [id number] 04:50:00 Test Item Value Reference Range Interpretation [...] S NOT APPLICABLE FOR DIALYSIS PATIEN TS. Electric Powerline Examiner ID - EDASICBC W/PLT COUNT & AUTO [id number] 04:19:00 Test Item Value Reference Range Interpretation [...] 0-1 PERCENT (BEAKER) (test code = 2801) [id number] 19:10:00 Test Item Value Reference Range Interpretation Comments PHOSPHORUS (BEAKER) (test code = 3.0 mg/dL 2.3-4.7 604) Electric Powerline Examiner ID - [id number] 19:10:00 Test Item Value Reference Range Interpretation Comments MAGNESIUM (BEAKER) (test code = 1.8 mg/dL 1.6-2.6 627) Electric Powerline Examiner ID - NTPBASIC METABOLIC [id number] 19:10:00 Test Item Value Reference Range Interpretation [...] S NOT APPLICABLE FOR DIALYSIS PATIEN TS. Electric Powerline Examiner ID - NTPHEPATIC FUNCTION [id number] 19:10:00 Test Item Value Reference Range Interpretation [...] code = 58 U/L 6-55 H 347) Electric Powerline Examiner ID - IGHFwzkfrvi5522-19-15 06:35:00 Test Item Value Reference Range Interpretation Comments Ferritin (test code = 4080.63 ng/mL 5-275 H 2276-4) SOFY (test code = SOFY) Electric Powerline Examiner ID - LANEY Baker Lab Interpretation (test Abnormal code = 68402-5) [facility]areFERRITIN2020-08-19 06:35:00 Test Item Value Reference Range Interpretation Comments FERRITIN (BEAKER) (test code = 4080.63 ng/mL 5.00-275.00 H 361) Electric Powerline Examiner ID - LANEY Rascon, TIBC, % sat. (without ferritin)2019-12-03 06:10:00 Test Item Value Reference Range Interpretation Comments Iron (test code = 2498-4) 161.0 ug/dL 40-160 H TIBC (test code = 2500-7) 159 ug/dL 250-450 L Iron % Saturation (test 101 % 20-55 H code = 2502-3) SOFY (test code = SOFY) Electric Powerline Examiner FORD Baker Lab Interpretation (test Abnormal code = 68615-7) [facility]areIRON, TIBC, % SAT. (WITHOUT FERRITIN)2019-12-03 06:10:00 Test Item Value Reference Range Interpretation Comments IRON (BEAKER) (test code = 547) 161.0 ug/dL 40.0-160.0 H TOTAL IRON BINDING CAPACITY 159 ug/dL 250-450 L (BEAKER) (test code = 769) IRON % SATURATION (2) (BEAKER) 101 % 20-55 H (test code = 2590) Electric Powerline Examiner FORD DAVISON MBASIC METABOLIC [id number] 05:40:00 Test Item Value Reference Range Interpretation [...] S NOT APPLICABLE FOR DIALYSIS PATIEN TS. Electric Powerline Examiner FORD DAVISON [id number] 05:23:00 Test Item Value Reference Range Interpretation Comments Triglycerides (test 91 mg/dL code = 2571-8) SOFY (test code = SOFY) TRIGLYCERIDE REFERENCE RANGELow Risk <150Borderline Risk 150-199High Risk 200-499Very High Risk >=500Operator FORD Baker [facility]areTRIGLYCERIDES2020-08-19 05:23:00 Test Item Value Reference Range Interpretation Comments TRIGLYCERIDES (BEAKER) (test code = 91 mg/dL 540) TRIGLYCERIDE REFERENCE RANGELow Risk <150Borderline Risk 150-199High Risk 200-499Very High Risk>=500Operator ID - LANEY [id number] 05:23:00 Test Item Value Reference Range Interpretation Comments MAGNESIUM (BEAKER) (test code = 1.6 mg/dL 1.6-2.6 627) Electric Powerline Examiner ID - LANEY [id number] 05:23:00 Test Item Value Reference Range Interpretation Comments PHOSPHORUS (BEAKER) (test code = 2.9 mg/dL 2.3-4.7 604) Electric Powerline Examiner ID - LANEY MCBC W/PLT COUNT & AUTO [id number] 04:59:00 Test Item Value Reference Range Interpretation [...] (BEAKER) (test code = 2801) BASIC METABOLIC [id number] 17:32:00 Test Item Value Reference Range Interpretation [...] S NOT APPLICABLE FOR DIALYSIS PATIEN TS. Electric Powerline Examiner ID - ASLipid [id number] 17:31:00 Test Item Value Reference Range Interpretation Comments Triglycerides (test 135 mg/dL code = 2571-8) Cholesterol (test code 131 mg/dL = 2093-3) HDL (test code = 73 mg/dL 5-9) LDL Calculated (test 31 mg/dL code = 63705-0) SOFY (test code = SOFY) Triglyceride Reference Range: Low Risk <150 Borderline 150-199 High Risk 200-499 Very High Risk >=500 Cholesterol Reference Range: Low Risk <200 Borderline 200-239 High Risk >240 HDL Cholesterol Reference Range: Low Risk >=60 High Risk <40 LDL Cholesterol Reference Range: Optimal <100 Near Optimal 100-129 Borderline 130-159 High 160-189 Very High >=190 Electric Powerline Examiner ID - [facility]arePHOSPHORUS2020-08-18 17:31:00 Test Item Value Reference Range Interpretation Comments PHOSPHORUS (BEAKER) (test code = 3.0 mg/dL 2.3-4.7 604) Electric Powerline Examiner ID - [id number] 17:31:00 Test Item Value Reference Range Interpretation Comments MAGNESIUM (BEAKER) (test code = 2.2 mg/dL 1.6-2.6 627) Electric Powerline Examiner ID - ASLIPID [id number] 17:31:00 Test Item Value Reference Range Interpretation [...] Borderline 130-159 High 160-189 Very High >=190 Electric Powerline Examiner ID - ASVitamin B12 and [id number] 14:28:00 Test Item Value Reference Range Interpretation Comments Vitamin B12 (test code = 290 pg/mL 189-652 7261-9) Folate (test code = 15.90 ng/mL >=7.00 2284-8) SOFY (test code = SOFY) Electric Powerline Examiner ID - EDASI Lab Interpretation (test Normal code = 46625-3) [facility]areVITAMIN B12 AND [id number] 14:28:00 Test Item Value Reference Range Interpretation Comments VITAMIN B12 (BEAKER) (test code = 290 pg/mL 213-816 774) FOLATE (BEAKER) (test code = 362) 15.90 ng/mL >=7.00 Electric Powerline Examiner ID - NXMHHYqlatthqe1710-02-54 13:49:00 Test Item Value Reference Range Interpretation Comments Potassium (test code = 3.7 meq/L 3.5-5.1 2823-3) SOFY (test code = SOFY) Electric Powerline Examiner ID - EDASICheck Serum Phosphorus level 4 hours after IV phosphorus replacement.Check Serum Potassium level 30 minutes after IV potassium replacement completed. Lab Interpretation (test Normal code = 37022-0) [facility]arePOTASSIUM2020-08-18 13:49:00 Test Item Value Reference Range Interpretation Comments POTASSIUM (BEAKER) (test code = 3.7 meq/L 3.5-5.1 379) Electric Powerline Examiner ID - EDASICheck Serum Phosphorus level 4 hours after IV phosphorus replacement.Check Serum Potassium level 30 minutes after IV potassium replacement completed.[id number] 13:49:00 Test Item Value Reference Range Interpretation Comments MAGNESIUM (BEAKER) (test code = 2.3 mg/dL 1.6-2.6 627) Electric Powerline Examiner ID - EDASICheck Serum Phosphorus level 4 hours after IV phosphorus replacement.Check Serum Potassium level 30 minutes after IV potassium replacement completed.[id number] 13:49:00 Test Item Value Reference Range Interpretation Comments PHOSPHORUS (BEAKER) (test code = 3.1 mg/dL 2.3-4.7 604) Electric Powerline Examiner ID - EDASICheck Serum Phosphorus level 4 hours after IV phosphorus replacement.Check Serum Potassium level 30 minutes after IV potassium replacement completed.[id number] 07:09:00 Test Item Value Reference Range Interpretation Comments Amylase (test code = 159 U/L 25-125 H 1798-8) SOFY (test code = SOFY) Electric Powerline Examiner ID - DBSpecimen slightly icteric Lab Interpretation (test Abnormal code = 06650-8) [facility]areAMYLASE2020-08-18 07:09:00 Test Item Value Reference Range Interpretation Comments AMYLASE (BEAKER) (test code = 349) 159 U/L 25-125 H Electric Powerline Examiner ID - DBSpecimen slightly [id number] 05:31:00 Test Item Value Reference Range Interpretation Comments Ethanol Lvl (test code = <10 <=10 mg/dL 5643-2) SOFY (test code = SOFY) Electric Powerline Examiner ID - DB Lab Interpretation (test Normal code = 05489-0) [facility]areETHANOL2020-08-18 05:31:00 Test Item Value Reference Range Interpretation Comments ETHANOL (BEAKER) (test code = 400) < mg/dL <=10 Electric Powerline Examiner ID - DBT4, [id number] 05:29:00 Test Item Value Reference Range Interpretation Comments Free T4 (test code = 0.99 ng/dL 0.7-1.48 3024-7) SOFY (test code = SOFY) Electric Powerline Examiner ID - EDASI Lab Interpretation (test Normal code = 96433-8) [facility]areTSH2020-08-18 05:29:00 Test Item Value Reference Range Interpretation Comments TSH (test code = 2.475 0.350- 4.940 uIU/mL 59402-0) SOFY (test code = SOFY) Electric Powerline Examiner ID - EDASI Lab Interpretation (test Normal code = 65238-6) [facility]areT4, [id number] 05:29:00 Test Item Value Reference Range Interpretation Comments FREE T4 (BEAKER) (test code = 655) 0.99 ng/dL 0.70-1.48 Electric Powerline Examiner ID - [id number] 05:29:00 Test Item Value Reference Range Interpretation Comments THYROID STIMULATING HORMONE 2.475 uIU/mL 0.350-4.940 (BEAKER) (test code = 772) Electric Powerline Examiner ID - EDASIBASIC METABOLIC [id number] 05:24:00 Test Item Value Reference Range Interpretation [...] S NOT APPLICABLE FOR DIALYSIS PATIEN TS. Electric Powerline Examiner ID - DBSpecimen slightly [id number] 05:22:00 Test Item Value Reference Range Interpretation Comments PHOSPHORUS (BEAKER) (test code = 2.5 mg/dL 2.3-4.7 604) Electric Powerline Examiner ID - [id number] 05:22:00 Test Item Value Reference Range Interpretation Comments MAGNESIUM (BEAKER) (test code = 1.5 mg/dL 1.6-2.6 L 627) Electric Powerline Examiner ID - DBCBC W/PLT COUNT & AUTO [id number] 04:29:00 Test Item Value Reference Range Interpretation [...] Not Detected, (test code = Negative, See 08522-5) external report for linked test SARS-COV-2 [facility] PERFORMING LAB (test code = 72369-4) SOFY (test code = Negative results do [...] of the Act. Fact Sheet for Healthcare Providers:https://www.[employer]/Documents/Xper t%20Xpress%20SARS%20CoV- 2/Fact%20Sheets/302-3802 %91IQBG-BQW-0%20HEALTHCA RE%20PROVIDERS%20FACT%20 SHEET.pdf Fact Sheet for Healthcare Patients:https://www.[employer]/Documents/Xpert %20Xpress%20SARS%20CoV-2 /Fact%20Sheets/302-3801% 13WJDF-TVH-8%20PATIENT%2 0FACT%20SHEET.pdf Performing Laboratory:[facility]ARS-COV2/RT-PCR ([facility])2019-12-02 03:50:00 Test Item Value Reference Range Interpretation Comments SARS-COV2/RT-PCR (test code Negative Not Detected, Negative, = 2888849) See external report for linked test SARS-COV-2 PERFORMING LAB [facility] (test code = 1135403) Negative results do not preclude SARS-CoV-2 infection [...] of the Act.Fact Sheet for Healthcare Pro viders:https://www.[employer]/Documents/Xpert%20Xpress%20SARS%20CoV-2/Fact%20Sh eets/302-3802%26PHPK-UXJ-7%20HEALTHCARE%20PROVIDERS%20FACT%20SHEET.pdfFact Sheet for Healthcare Patients:https://www.[employer]/Documents/Xpert%20Xpress%20SARS%20CoV-2/Fact%20Sheets/302-3801%20SARS-COV -2%20PATIENT%20FACT%20SHEET.pdfPerforming Laboratory:[facility], [place] [id number] 03:30:00 Test Item Value Reference Range Interpretation Comments PHOSPHORUS (BEAKER) (test code = 2.8 mg/dL 2.3-4.7 604) Electric Powerline Examiner ID - [id number] 01:39:00 Test Item Value Reference Range Interpretation Comments Lipase (test code = 264 U/L 8-78 H 3040-3) SOFY (test code = SOFY) Electric Powerline Examiner ID - DBSpecimen slightly icteric Lab Interpretation (test Abnormal code = 23518-3) [facility]areMAGNESIUM2020-08-18 01:39:00 Test Item Value Reference Range Interpretation Comments MAGNESIUM (BEAKER) (test code = 1.5 mg/dL 1.6-2.6 L 627) Electric Powerline Examiner ID - DBHEPATIC FUNCTION [id number] 01:39:00 Test Item Value Reference Range Interpretation [...] code = 57 U/L 6-55 H 347) Electric Powerline Examiner ID - DBSpecimen slightly [id number] 01:39:00 Test Item Value Reference Range Interpretation Comments LIPASE (BEAKER) (test code = 749) 264 U/L 8-78 H Electric Powerline Examiner ID - DBSpecimen slightly ictericBASIC METABOLIC [id number] 01:39:00 Test Item Value Reference Range Interpretation [...] S NOT APPLICABLE FOR DIALYSIS PATIEN TS. Electric Powerline Examiner ID - DBSpecimen slightly ictericPROTHROMBIN TIME/[id number] 01:18:00 Test Item Value Reference Range Interpretation [...] K/CU MM L MPV (test code = 97324-2) 12.4 fL 9.4-12.4 nRBC (test code = 413) 0 0- 0 /100 WBC Lab Interpretation (test code = Abnormal 06406-5) [facility] W/PLT COUNT & AUTO [id number] 01:11:00 Test Item Value Reference Range Interpretation [...] 2801) CBC WITH PLATELET COUNT + MANUAL [id number] 01:11:00 Test Item Value Reference Range Interpretation [...]
--- OUTSIDE RECORDS SUMMARY | 2020-05-01 18:01 | XMS REPORT | Summary of Care ---
:1960 Author Organization [facility] - [facility] Address [address] [place] [id number] Care Team Providers Name Role Phone Isabelle Mayur Primary Care Provider Reason for Referral (KAUR) Status Reason Specialty Diagnoses / Referred By Referred To Procedures Contact Contact New Request Vascular Surgery Procedures Jerzy Rosen, BILATERAL VENOUS DUPLEX [address] VASCULAR LAB [address] [address] Radiology Services (Routine) Status Reason Specialty Diagnoses / Referred By Referred To Procedures Contact Contact New Request Diagnostic Diagnoses Generalized abdominal pain Jerzy Rosen, Radiology Procedures US ABDOMEN COMPLETE [address] [place] [address] [place] [address] (Routine) Status Reason Specialty Diagnoses / Referred By Contact Refe rred To Procedures Contact New Request Cardiology Diagnoses Atypical chest pain Jerzy Rosen MD Procedures ECHO ROUTINE W/DOPPLER COLOR [address] [place] [address] [place] [address] [phone] Phone: Radiology Services (Routine) Status Reason Specialty Diagnoses / Referred By Referred To Procedures Contact Contact New Request Diagnostic Diagnoses Epigastric pain Jerzy Rosen, Radiology Procedures XR CHEST [address] [place] [address] [place] [phone] MRI/CAT Scan (Routine) Status Reason Specialty Diagnoses / Referred By Referred To Procedures Contact Contact New Request Diagnostic Diagnoses Epigastric pain Burgos, Derick, Radiology Procedures CT ABDOMEN PELVIS W CONTRAST DO [address] [place] [address]. [address] [place] [address] Reason for Visit Reason Comments Other multiple medical problems SWELLING Shortness of Breath Auth/Cert Status Reason Specialty Diagnoses / Referred By Referred To Procedures Contact Contact Emergency Medicine [facility] Em ergency Dept [address] [place] [address] Fax: Encounter Details Date Type Department Care Team Description 04/28/2020 - [facility] Medicine Derick Burgos, DO [address] [place] [address]. [address] [place] [address] [phone] Alcohol withdrawal 04/29/2020 Encounter Surgery Unit Angel Arauz MD [address] [place] [address] [address] [place] [address] [phone] [place] [address] Jerzy Rosen MD [address] [place] [address]. [address] [place] [address] [phone] [place] [address] Allergies No Known Allergiesdocumented as of this encounter (statuses as of 04/29/2020) Medications Medication Sig Dispensed Refills Start Date End Date Status HYDROcodone-acetam TAKE BY MOUTH 1 0 02/10/201904/16 Discontinued inophen 7.5-325 mg TABLET 2-3 1 per tablet TIMES A DAY NEEDED foLIC acid 1 mg Take 1 tablet 90 tablet 0 07/10/2019 Discontinued tabletIndications: by mouth daily. 1 Acute alcoholic gastritis without hemorrhage, Alcohol withdrawal syndrome without complication pantoprazole 40 mg Take 1 tablet 90 tablet 0 07/10/2019 Discontinued EC by mouth daily. 1 tabletIndications: Acute alcoholic gastritis without hemorrhage, Alcohol withdrawal syndrome without complication Magnesium Oxide Take 400 mg by 180 tablet 0 07/10/2019 02 Discontinued 420 mg mouth 2 (two) 1 TabIndications: times daily. Acute alcoholic gastritis without hemorrhage thiamine 100 mg Take 1 tablet 90 tablet 0 07/10/2019 Discontinued tabletIndications: by mouth daily. 1 Alcohol withdrawal syndrome without complication, Acute alcoholic gastritis without hemorrhage KCL 20 mEq Take 1 tablet 90 tablet 0 07/10/2019 Disc ontinued tabletIndications: by mouth daily. 1 Alcohol withdrawal syndrome without complication venlafaxine XR TAKE 1 CAPSULE 90 capsule 0 07/10/2019 04/29/19 2 Discontinued 37.5 mg 24 hr BY MOUTH EVERY 1 capsuleIndications DAY WITH : Chronic pain due BREAKFAST to trauma, Adjustment disorder with depressed mood furosemide 20 mg Take 1 tablet 90 tablet 0 07/10/2019 04/29/19 2 Discontinued tabletIndications: by mouth daily. 1 Localized swelling of both lower legs, Essential hypertension lidocaine 5 % (700 Apply 1 Patch 90 Patch 0 07/10/2019 Discontinued mg/patch) to area(s) 1 patchIndications: daily. Chronic pain due to trauma Diclofenac Sodium Apply to 100 g 1 08/14/2019 D iscontinued (VOLTAREN) 1 % area(s) 4 1 gelIndications: (four) times Chronic pain due daily. Apply 4 to trauma g qid lisinopril 30 mg Take 1 tablet 90 tablet 0 09/11/2019 04/29/19 2 Discontinued tabletIndications: by mouth daily. 1 Essential hypertension NIFEDIPINE ER 30 TAKE 1 TABLET 30 tablet 3 09/11/2019 04/29/19 2 Discontinued mg BY MOUTH EVERY 1 tabletIndications: DAY Essential hypertension documented as of this encounter (statuses as of 04/29/2020) Active Problems Problem Noted Date Generalized abdominal pain 04/29/2020 Atypical chest pain 04/29/2020 Obesity (BMI 30-39.9) 04/29/2020 Acute alcoholic gastritis without hemorrhage 0 Adjustment [...] as of this encounter (statuses as of 04/29/2020) Social History Tobacco Use Types Packs/Day Years Used Date Current Every Day Smoker Cigarettes 1 40 Smokeless Tobacco: Never Used Tobacco Cessation: Ready to Quit: Yes; C jennifer Given: Yes Alcohol Use Drinks/Week oz/Week Comments Yes Alcohol Habits Answer Date Recorded How often do you have a drink containing 4 or more times a w duckwater 03/23/2019 alcohol? How many drinks containing alcohol [...] been in contact with No / Unsure 04/28/2020 4:40 PM CLIENT SERVICE REPRESENTATIVE someone who was confirmed or suspected to have Coronavirus / COVID-19? documented as of this encounter Last Filed Vital Signs Vital Sign Reading Time Taken Comments Blood Pressure 138/62 04/29/2020 12:20 PM CLIENT SERVICE REPRESENTATIVE Pulse 81 04/29/2020 10:54 AM CLIENT SERVICE REPRESENTATIVE Temperature 36.7 C (98 F) 04/29/2020 10:54 AM CLIENT SERVICE REPRESENTATIVE Respiratory Rate 20 04/29/2020 12:32 PM CLIENT SERVICE REPRESENTATIVE Oxygen Saturation 100% 04/29/2020 12:32 PM CLIENT SERVICE REPRESENTATIVE Inhaled Oxygen Concentration - - Weight 108.5 kg (239 lb 3.2 oz) 04/29/2020 12:37 AM CLIENT SERVICE REPRESENTATIVE Height 188 cm (6' 2") 04/29/2020 12:37 AM CLIENT SERVICE REPRESENTATIVE Body Mass Index 30.71 04/29/2020 12:37 AM CLIENT SERVICE REPRESENTATIVE documented in this encounter Discharge Summaries Carl Polo MD - 04/29/2020 4:25 PM CST Hospital Medicine Discharge Summary PATIENT NAME: Jose Montana : 1960 AGE: [age] year old PRIMARY CARE PHYSICIAN: Everardo Walton ADMITTING PHYSICIAN: Jerzy Rosen MD DISCHARGE PHYSICIAN: Carl Polo MD ADMISSION DATE: 04/28/2020 DISCHARGE DATE: 04/29/2020 DISCHARGE DIAGNOSES: Principal Problem: Alcohol withdrawal Active Problems: Generalized abdominal pain Atypical chest pain Obesity (BMI 30-39.9) HPI 60 y/o male presents today with multiple unclear medical complaints with timeline that is difficult for me to understand. He reports having chronic abdominal pain and abd swelling especially on left side that is now worsening over couple of days. He reports exertional and pleuritic chest pain, sharp, m oderate, intermittently, sometimes worsened with activity. He reports b/l leg swelling improved withtaking increased lasix. He's been taking norco off the streets and taking 8 alieves a day for pain. He is a daily heavy drinker and smoker and presents with fatigue, weakness and tremors and tachycardia. He is very hard of hearing. Denies syncope, focal weakness, rash, itching, vomiting, blood in stool, fevers/chills, sputum production, runny nose. Denies sick contacts. Admitted by ER for alcohol intoxication. HOSPITAL COURSE: Pt left AMA without informing RN or physician, without signing the AMA form. CONSULTS: Nephrology GI PROCEDURES: None LABS PENDING: None DIET: low sodium ACTIVITY: as tolerated MEDS: Current Discharge Medication List STOP taking these medications lisinopriL (PRINIVIL,ZESTRIL) 30 mg Comments: Reason for Stopping: NIFEDIPINE ER 30 mg tablet Comments: Reason for Stopping: Diclofenac Sodium (VOLTAREN) 1 % gel Comments: Reason for Stopping: foLIC acid (FOLATE) 1 mg Comments: Reason for Stopping: furosemide (LASIX) 20 mg Comments: Reason for Stopping: KCL (KLOR-CON M20) 20 mEq Comments: Reason for Stopping: lidocaine (LIDODERM) 1 Patch Comments: Reason for Stopping: Magnesium Oxide (MAOX) 400 mg Comments: Reason for Stopping: pantoprazole (PROTONIX) 40 mg Comments: Reason for Stopping: thiamine (VITAMIN B1) 100 mg Comments: Reason for Stopping: venlafaxine XR 37.5 mg 24 hr capsule Comments: Reason for Stopping: HYDROcodone-acetaminophen 7.5-325 mg per tablet Comments: Reason for Stopping: SIGNIFICANT LAB/X-RAYS: Lab results: CBC BMP PT/INR WBC (10*3/L) Date Value 04/28/2020 14.36 (H) NA (mmol/L) Date Value 04/29/2020 133 (L) No results found for: PT RBC (10*6/L) Date Value 04/28/2020 3.21 (L) K (mmol/L) Date Value 04/29/2020 3.7 INR (no units) Date Value 04/29/2020 1.3 PLT (10*3/L) Date Value 04/28/2020 205 CALCIUM (mg/dL) Date Value 04/29/2020 7.4 (L) HGB (g/dL) Date Value 04/28/2020 12.1 (L) CL (mmol/L) Date Value 04/29/2020 101 aPTT HCT (%) Date Value 04/28/2020 33.0 (L) BUN (mg/dL) Date Value 04/29/2020 4 (L) APTT Patient (Seconds) Date Value 03/07/2019 33 CREATININE (mg/dL) Date Value 04/29/2020 1.00 GLUCOSE (mg/dL) Date Value 04/29/2020 100 CO2 TOTAL (mmol/L) Date Value 04/29/2020 28 Imaging results: Xr Chest 1 Vw Result Date: 04/29/2020 No acute cardiopulmonary process. Stable process traumatic left-sided pleural thickening with multiple remote left-sided rib fractures. RL: 7000 Ct Abdomen Pelvis W Contrast Result Date: 04/28/2020 1. Free fluid seen in the pelvis, along the paracolic gutters, as well as adjacent to the spleen and liver. This is new since the previous exam. It likely represents ascites, however other sources, including inflammatory, cannot entirely be bowel. Please correlate clinically. 2. Cirrhotic liver. Status post cholecystectomy. 3. No bowel obstruction, appendicitis, free air, or focal loculated intraperitoneal fluid collections. 4. Mildly prominent lymph nodes in the gerardo hepatis are nonspecific but can be seen in the setting of cirrhosis as well as hepatitis. RL: 135 END OF REPORT OSITION: left AMA CONDITION: serious FOLLOW-UP: PCP GI Nephrology Electronically Signed by: Carl Polo MD 04/29/2020 4:25 PM documented in this encounter Progress Notes Oriana Marie MD - 04/29/2020 3:57 PM CSTPatient was not seen not in the room staff could not locate the patient Carl Oconnor MD - 04/29/2020 3:26 PM CLIENT SERVICE REPRESENTATIVE [facility] Medicine Progress Note Name: Jose Montana : 1960 Admit Date: 04/28/2020 PCP on file: Everardo Stevens ASSESSMENT: Jose Montana is a 60 year old male with PLAN: # Alcohol withdrawal Thiamine/folic acid/MV Ativan prn Serax taper PT consult SW consult # Atypical chest pain Sinus tachycardia, started propanolol 20 mg BID Consulted cardiology Telemetry Trend trops repeat ekg F/u CXR Echo pending # B/l leg edema venous dopplers: neg for DVT # Unclear etiology of abdominal pain Ct abd done in ER, concern for ascites US abdomen: small amount of fluid Appreciate GI Dr. Dwyer's input IV protonix daily # Decompensated liver cirrhosis # Mild acute diastolic chf For now IV lasix 20 mg BID Increase lasix to 40 mg qd on discharge , recently been taking more lasix due to leg edema Started aldactone 50 mg qd # Hypertension. Discontinue other home bp meds for now. See above medication changes # Severe hypomagnesemia # Hypokalemia Replace lytes # Leukocytosis Unclear etiology F/u wbc, f/u blood cultures Procalcitonin: 0.14. Will start empiric abx # Macrocytosis anemia Monitor cbc Stable F/u b12, vit D # CKD unclear stage Consulted nephrology Dr. Marie # Morbid obesity, recommended to patient outpatient sleep study # Chronic pain, takes norco off the streets # Hx of ataxia, high flal risk # Hx of hep C # Smoker, nicotine patch # Alcohol abuse, chronic, counseled on alcohol cessation Dispo: home once medically cleared VTE Prophylaxis: Lovenox Code Status: [facility] PAINT PREPPER was verified during stay Electronically signed by: Carl Polo MD SUBJECTIVE/ 24-HOUR HOSPITAL EVENTS: 04/29: c/o left chest pain, seems chronic. OBJECTIVE: Vital signs range: Temp: [35.6 C (96.1 F)-37.3 C (99.1 F)] 36.7 C (98 F) Pulse: [80-124] 81 Resp: [16-24] 20 BP: (90-139)/(60-94) 138/62 Most recent vital signs: BP 138/62 | Pulse 81 | Temp 36.7 C (98 F) (Temporal Artery) | Resp 20 | Ht 1.88 m (6' 2") |Wt 108.5 kg (239 lb 3.2 oz) | SpO2 100% | BMI 30.71 kg/m I/O: No intake/output data recorded. PHYSICAL EXAM: General: alert and oriented x 4 (person, place, date/time and situation); no apparent distress HEENT: pupils equal, round, reactive to light; extraocular movements intact; oropharynx clear; moistmucous membranes Neck: supple, no lymphadenopathy, no bruits, no JVD Lungs: clear to auscultation bilaterally Cardio: S1, S2 normal; no murmurs, rubs or gallops Abdomen: soft; non-tender; mildly distended; normoactive bowel sounds Extremities: no clubbing, cyanosis, or edema Skin: no rashes Neuro: cranial nerves II through XII grossly intact; sensation grossly intact; muscle strength 5 outof 5 in all four extremities, no focal deficits, alert and oriented x 3 LABS: I reviewed all the relevant patient's new lab test results Recent Results (from the past 24 hour(s)) CBC WITH DIFF Collection Time: 04/28/20 5:36 PM Result Value Ref Range WBC 14.36 (H) 4.20 - 10.70 10*3/L RBC 3.21 (L) 4.26 - 5.52 10*6/L HGB 12.1 (L) 12.2 - 16.4 g/dL HCT 33.0 (L) 38.4 - 49.3 % MCV 102.8 (H) 81.7 - 95.6 fL MCH 37.7 (H) 26.1 - 32.7 pg MCHC 36.7 (H) 31.2 - 35.0 g/dL RDW-SD 48.0 38.5 - 51.6 fL RDW-CV 12.7 12.1 - 15.4 % PLT 205 150 - 328 10*3/L MPV 12.4 9.8 - 13.0 fL NRBC/100 WBC 0.0 0.0 - 10.0 /100 WBCs NRBC x10^3 <0.01 10*3/L GRAN MAT (NEUT) % 66.2 % IMM GRAN % 0.50 % LYMPH % 23.9 % MONO % 8.5 % EOS % 0.2 % BASO % 0.7 % GRAN MAT x10^3(ANC) 9.51 (H) 1.99 - 6.95 10*3/uL IMM GRAN x10^3 0.07 (H) 0.00 - 0.06 10*3/uL LYMPH x10^3 3.43 (H) 1.09 - 3.23 10*3/uL MONO x10^3 1.22 (H) 0.36 - 1.02 10*3/uL EOS x10^3 0.03 (L) 0.06 - 0.53 10*3/uL BASO x10^3 0.10 (H) 0.01 - 0.09 10*3/uL COMP. METABOLIC PANEL (64342) Collection Time: 04/28/20 5:36 PM Result Value Ref Range NA 134 (L) 135 - 145 mmol/L K 3.3 (L) 3.5 - 5.0 mmol/L CL 99 98 - 108 mmol/L CO2 TOTAL 23 23 - 31 mmol/L AGAP 12 2 - 16 BUN 4 (L) 7 - 23 mg/dL GLUCOSE 118 (H) 70 - 110 mg/dL CREATININE 1.06 0.60 - 1.25 mg/dL TOTAL BILI 2.0 (H) 0.1 - 1.1 mg/dL CALCIUM 8.2 (L) 8.6 - 10.6 mg/dL T PROTEIN 7.3 6.3 - 8.2 g/dL ALBUMIN 3.2 (L) 3.5 - 5.0 g/dL ALK PHOS 202 (H) 34 - 122 U/L ALTv 30 5 - 50 U/L AST(SGOT) 150 (H) 13 - 40 U/L eGFR Calculation (Non-) 71.5 mL/min/1.73m2 eGFR Calculation () 86.7 mL/min/1.73m2 LIPASE Collection Time: 04/28/20 5:36 PM Result Value Ref Range LIPASE 73 0 - 220 U/L LIPID PANEL (33800)(TOTAL CHOLESTEROL, TRIGLYCERIDES, HDL) Collection Time: 04/28/20 5:36 PM Result Value Ref Range CHOL 101 (L) 120 - 200 mg/dL HDL 38 (L) >40 mg/dL HDLC RATIO 2.7 <=5.0 TRIG 111 30 - 170 mg/dL LDL CHOL 41 <=160 mg/dL VLDL 22 5 - 60 mg/dL ETHANOL Collection Time: 04/28/20 5:36 PM Result Value Ref Range ALCOHOL 37 mg/dL MAGNESIUM Collection Time: 04/28/20 5:36 PM Result Value Ref Range MAGNESIUM 1.1 (L) 1.7 - 2.4 mg/dL THYROID STIMULATING HORMONE Collection Time: 04/28/20 5:36 PM Result Value Ref Range TSH 2.52 0.45 - 4.70 mIU/L TROPONIN I Collection Time: 04/28/20 5:36 PM Result Value Ref Range TROPONIN I <0.012 <=0.034 ng/mL URIC ACID Collection Time: 04/28/20 5:36 PM Result Value Ref Range URIC ACID 8.1 (H) 3.6 - 8.0 mg/dL PHOSPHORUS Collection Time: 04/28/20 5:36 PM Result Value Ref Range PHOSPHORUS 3.0 2.5 - 5.0 mg/dL CREATINE KINASE Collection Time: 04/28/20 5:36 PM Result Value Ref Range CK 53 33 - 194 U/L GLYCOSYLATED HEMOGLOBIN (A1C) Collection Time: 04/28/20 5:36 PM Result Value Ref Range HGB A1C 4.5 4.0 - 6.0 % FERRITIN SERUM Collection Time: 04/28/20 5:36 PM Result Value Ref Range FERRITIN 688.0 (H) 18.0 - 464.0 ng/mL URINALYSIS Collection Time: 04/28/20 6:59 PM Result Value Ref Range APPEARANCE Clear Clear COLOR Shweta (A) Yellow PH 6.0 4.8 - 8.0 SP GRAVITY 1.018 1.003 - 1.030 GLU U QUAL Normal Normal BLOOD Negative Negative KETONES Negative Negative PROTEIN Negative Negative UROBILIN 4.0 mg/dL (A) Normal BILIRUBIN Negative Negative NITRITE Negative Negative LEUK JOSE Negative Negative RBC/HPF <1 0 - 3 HPF WBC/HPF 1 0 - 5 HPF BACTERIA Negative Negative ADC / LCC - DRUG SCREEN TRIAGE Collection Time: 04/28/20 7:10 PM Result Value Ref Range BENZO U Negative Negative BLAINE U Negative Negative AMPHET Negative Negative THC Negative Negative METHADONE Negative Negative Meth U Negative Negative OPIATES Presumptive Positive (A) Negative Cocaine Metabolite Negative Negative PROPOXY Negative Negative Tric U Negative Negative PCP Negative Negative OXYCOD Negative Negative COVID-19 (ID NOW RAPID TESTING) Collection Time: 04/28/20 7:10 PM Specimen: NASOPHARYNGEAL SWAB Result Value Ref Range SARS-CoV-2 Rapid ID NOW Not Detected Not Detected OSMOLALITY URINE Collection Time: 04/29/20 1:08 AM Result Value Ref Range OSMO U 433 50-1,100 mOsm/kg UREA NITROGEN, URINE RANDOM Collection Time: 04/29/20 1:08 AM Result Value Ref Range UREA N UR 235 mg/dL OSMOLALITY, SERUM OR PLASMA Collection Time: 04/29/20 6:07 AM Result Value Ref Range OSMOLALITY 276 (L) 278 - 305 mOsm/kg COMP. METABOLIC PANEL (39560) Collection Time: 04/29/20 6:07 AM Result Value Ref Range NA 133 (L) 135 - 145 mmol/L K 3.7 3.5 - 5.0 mmol/L CL 101 98 - 108 mmol/L CO2 TOTAL 28 23 - 31 mmol/L AGAP 4 2 - 16 BUN 4 (L) 7 - 23 mg/dL GLUCOSE 100 70 - 110 mg/dL CREATININE 1.00 0.60 - 1.25 mg/dL TOTAL BILI 2.4 (H) 0.1 - 1.1 mg/dL CALCIUM 7.4 (L) 8.6 - 10.6 mg/dL T PROTEIN 6.2 (L) 6.3 - 8.2 g/dL ALBUMIN 2.5 (L) 3.5 - 5.0 g/dL ALK PHOS 166 (H) 34 - 122 U/L ALTv 23 5 - 50 U/L AST(SGOT) 98 (H) 13 - 40 U/L eGFR Calculation (Non-) 76.5 mL/min/1.73m2 eGFR Calculation () 92.7 mL/min/1.73m2 PROTHROMBIN TIME / INR Collection Time: 04/29/20 6:07 AM Result Value Ref Range PROTIME PATIENT 15.7 (H) 12.0 - 14.7 Seconds INR 1.3 MAGNESIUM Collection Time: 04/29/20 6:07 AM Result Value Ref Range MAGNESIUM 1.3 (L) 1.7 - 2.4 mg/dL N-TERMINAL PRO-BNP Collection Time: 04/29/20 6:07 AM Result Value Ref Range NT-proBNP 1,140 (H) <=125 pg/mL VITAMIN B12, LEVEL Collection Time: 04/29/20 6:07 AM Result Value Ref Range VIT B12 453 240 - 930 pg/mL VITAMIN D, 25-OH Collection Time: 04/29/20 6:07 AM Result Value Ref Range VIT D 25OH 19 (L) 25 - 80 ng/mL IRON PANEL Collection Time: 04/29/20 6:07 AM Result Value Ref Range IRON 161 (H) 50 - 160 ug/dL TIBC 208 (L) 250 - 410 ug/dL % FE SAT 77 (H) 20 - 50 % PROCALCITONIN Collection Time: 04/29/20 6:07 AM Result Value Ref Range Procalcitonin 0.14 (H) <0.07 ng/mL TROPONIN I Collection Time: 04/29/20 6:07 AM Result Value Ref Range TROPONIN I 0.018 <=0.034 ng/mL BLOOD CULTURE SCREEN Collection Time: 04/29/20 6:07 AM Specimen: VENOUS; Blood Result Value Ref Range Blood Culture-Aerobic Culture In Progress No growth Blood Culture-Anaerobic Culture In Progress No growth BLOOD CULTURE SCREEN Collection Time: 04/29/20 6:07 AM Specimen: VENOUS; Blood Result Value Ref Range Blood Culture-Aerobic Culture In Progress No growth Blood Culture-Anaerobic Culture In Progress No growth SEDIMENTATION RATE Collection Time: 04/29/20 6:08 AM Result Value Ref Range ESR 18 (H) 0 - 10 mm/HR PROTEIN CREAT RATIO URINE RANDOM Collection Time: 04/29/20 6:09 AM Result Value Ref Range T. PROT U 7 mg/dL CREAT U 125.6 mg/dL Protein/Creatinine Ratio Urine 0.1 0.0 - 2.0 SODIUM, URINE RANDOM Collection Time: 04/29/20 6:09 AM Result Value Ref Range NA URINE 6 mmol/L IMAGING: I reviewed all the relevant patient's new radiology test results Hospital Encounter on 04/28/20 US ABDOMEN COMPLETE Narrative HISTORY: Abdominal pain. Evaluate for sinusitis. TECHNIQUE: Upper abdominal organs were evaluated in multiple planes with the patient in multiple different positions, without and with color imaging. FINDINGS: Comparison is made with 04/28/2020 CT studies. Liver is is enlarged, 19.7 cm, spleen is 10 x 4 cm, right kidney is 11.2 x 5.4 x 5.4 cm and left kidney is 10.1 x 5.1 x 4.4 cm in size. Liver showed diffuse increased echotexture without any focal liver lesions. Small amount of fluid noted surrounding the liver and spleen. No focal lesions are detected in these organs. Cortex of both kidneys is approximately 13 mm. No hydronephrosis or aortic aneurysm detected. Visualized portions of the pancreas appear normal. Hepatic and portal venous system appear patent, with hepatopetal portal flow noted. Gallbladder has been removed. Common hepatic duct is 4.0 mm. CONCLUSIONS: 1. Hepatomegaly with diffuse increased echotexture of the parenchyma consistent with chronic primary liver disease including steatosis. 2. S/P cholecystectomy. Small amount of fluid is seen surrounding the liver and minimal fluid noted surrounding the spleen. CT ABDOMEN PELVIS W CONTRAST Narrative ORDERING PHYSICIAN: DERICK BURGOS CLINICAL INFORMATION: Abd pain, acute, generalized COMPARISON: 02/24/2020 Technique: CT of the abdomen and pelvis was performed after the administration of IV contrast. No p.o. contrast was used. Multiplanar reformats were also obtained. This study was performed according to ALARA principle for radiation dose reduction. Findings: There is no evidence of obstructive uropathy. No suspicious renal parenchymal abnormalities are seen. Gallbladder surgically absent. Liver has a scalloped contour suggesting underlying cirrhosis. No intrahepatic biliary dilatation is seen. No distinct suspicious focal hepatic abnormalities are seen. The spleen is normal in size with no suspicious focal abnormalities. Adrenal glands are unremarkable. Pancreas also shows no evidence of acute abnormalities. There is no bowel obstruction. Appendix is normal. No free air is seen. Small to moderate amount of free fluid seen within the pelvis, along the paracolic gutters, as well as adjacent to the spleen and liver is new since the previous exam. Colonic diverticulosis without evidence of acute diverticulitis is seen involving the sigmoid colon. Mildly prominent lymph nodes measuring up to 2.5 x 1.9 cm are seen in the gerardo hepatis. There is atelectasis and scarring in the lung bases. No suspicious focal osseous lesions are seen. Impression 1. Free fluid seen in the pelvis, along the paracolic gutters, as well as adjacent to the spleen and liver. This is new since the previous exam. It likely represents ascites, however other sources, including inflammatory, cannot entirely be bowel. Please correlate clinically. 2. Cirrhotic liver. Status post cholecystectomy. 3. No bowel obstruction, appendicitis, free air, or focal loculated intraperitoneal fluid collections. 4. Mildly prominent lymph nodes in the gerardo hepatis are nonspecific but can be seen in the setting of cirrhosis as well as hepatitis. RL: 135 END OF REPORT CHEST 1 VW Narrative Patient name: JOSE MONTANA : 1960 60 years EXAMINATION: XR CHEST 1 VW Ordering Physician: JERZY ROSEN CLINICAL HISTORY: chest pain, dyspnea COMPARISON: 03/23/2019 TECHNIQUE: Single frontal view of the chest was performed. FINDINGS: Normal lung volumes. Lung parenchyma is clear. No focal infiltrate or effusion. No edema. No pneumothorax. Heart size normal normal aortic contours. Postop changes of multiple left-sided ribs are stable with adjacent chronic pleural thickening. Postop changes of left clavicle stable. No acute osseous abnormality. Impression No acute cardiopulmonary process. Stable process traumatic left-sided pleural thickening with multiple remote left-sided rib fractures. RL: 7000 CATIONS: I reviewed the current inpatient medications ordered Current Facility-Administered Medications Medication Dose Route Frequency Last Rate Last Admin docusate (COLACE) capsule 100 mg 100 mg Oral BID Stopped at 04/29/20 0800 enoxaparin (LOVENOX) injection 40 mg 40 mg Subcutaneous DAILY foLIC acid (FOLATE) tablet 1 mg 1 mg Oral DAILY 1 mg at 04/29/20 1013 furosemide (LASIX) injection 20 mg 20 mg IV Push QAM+PM Stopped at 04/29/20 0900 HYDROcodone-acetaminophen (NORCO 5) 5-325 mg tablet 1 tablet 1 tablet Oral TIDPRN 1 tablet at04/29/20 0305 ipratropium-albuteroL (DUONEB) 0.5 mg-3 mg(2.5 mg base)/3 mL nebulizer solution 3 mL 3 mL Inhalation Q6HPRN 3 mL at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 distension. Palpations: There is no mass. Tenderness: There is abdominal tenderness in the epigastric area. Hernia: No hernia is present. Musculoskeletal: General: No tenderness, deformity or signs of injury. Right lower leg: Edema present. Left lower leg: Edema present. Neurological: Mental Status: He is alert and oriented to person, place, and time. Labs Recent Results (from the past 24 hour(s)) CBC WITH DIFF Collection Time: 04/28/20 5:36 PM Result Value Ref Range WBC 14.36 (H) 4.20 - 10.70 10*3/L RBC 3.21 (L) 4.26 - 5.52 10*6/L HGB 12.1 (L) 12.2 - 16.4 g/dL HCT 33.0 (L) 38.4 - 49.3 % MCV 102.8 (H) 81.7 - 95.6 fL MCH 37.7 (H) 26.1 - 32.7 pg MCHC 36.7 (H) 31.2 - 35.0 g/dL RDW-SD 48.0 38.5 - 51.6 fL RDW-CV 12.7 12.1 - 15.4 % PLT 205 150 - 328 10*3/L MPV 12.4 9.8 - 13.0 fL NRBC/100 WBC 0.0 0.0 - 10.0 /100 WBCs NRBC x10^3 <0.01 10*3/L GRAN MAT (NEUT) % 66.2 % IMM GRAN % 0.50 % LYMPH % 23.9 % MONO % 8.5 % EOS % 0.2 % BASO % 0.7 % GRAN MAT x10^3(ANC) 9.51 (H) 1.99 - 6.95 10*3/uL IMM GRAN x10^3 0.07 (H) 0.00 - 0.06 10*3/uL LYMPH x10^3 3.43 (H) 1.09 - 3.23 10*3/uL MONO x10^3 1.22 (H) 0.36 - 1.02 10*3/uL EOS x10^3 0.03 (L) 0.06 - 0.53 10*3/uL BASO x10^3 0.10 (H) 0.01 - 0.09 10*3/uL COMP. METABOLIC PANEL (01924) Collection Time: 04/28/20 5:36 PM Result Value Ref Range NA 134 (L) 135 - 145 mmol/L K 3.3 (L) 3.5 - 5.0 mmol/L CL 99 98 - 108 mmol/L CO2 TOTAL 23 23 - 31 mmol/L AGAP 12 2 - 16 BUN 4 (L) 7 - 23 mg/dL GLUCOSE 118 (H) 70 - 110 mg/dL CREATININE 1.06 0.60 - 1.25 mg/dL TOTAL BILI 2.0 (H) 0.1 - 1.1 mg/dL CALCIUM 8.2 (L) 8.6 - 10.6 mg/dL T PROTEIN 7.3 6.3 - 8.2 g/dL ALBUMIN 3.2 (L) 3.5 - 5.0 g/dL ALK PHOS 202 (H) 34 - 122 U/L ALTv 30 5 - 50 U/L AST(SGOT) 150 (H) 13 - 40 U/L eGFR Calculation (Non-) 71.5 mL/min/1.73m2 eGFR Calculation () 86.7 mL/min/1.73m2 LIPASE Collection Time: 04/28/20 5:36 PM Result Value Ref Range LIPASE 73 0 - 220 U/L LIPID PANEL (92277)(TOTAL CHOLESTEROL, TRIGLYCERIDES, HDL) Collection Time: 04/28/20 5:36 PM Result Value Ref Range CHOL 101 (L) 120 - 200 mg/dL HDL 38 (L) >40 mg/dL HDLC RATIO 2.7 <=5.0 TRIG 111 30 - 170 mg/dL LDL CHOL 41 <=160 mg/dL VLDL 22 5 - 60 mg/dL ETHANOL Collection Time: 04/28/20 5:36 PM Result Value Ref Range ALCOHOL 37 mg/dL MAGNESIUM Collection Time: 04/28/20 5:36 PM Result Value Ref Range MAGNESIUM 1.1 (L) 1.7 - 2.4 mg/dL THYROID STIMULATING HORMONE Collection Time: 04/28/20 5:36 PM Result Value Ref Range TSH 2.52 0.45 - 4.70 mIU/L TROPONIN I Collection Time: 04/28/20 5:36 PM Result Value Ref Range TROPONIN I <0.012 <=0.034 ng/mL URIC ACID Collection Time: 04/28/20 5:36 PM Result Value Ref Range URIC ACID 8.1 (H) 3.6 - 8.0 mg/dL PHOSPHORUS Collection Time: 04/28/20 5:36 PM Result Value Ref Range PHOSPHORUS 3.0 2.5 - 5.0 mg/dL CREATINE KINASE Collection Time: 04/28/20 5:36 PM Result Value Ref Range CK 53 33 - 194 U/L GLYCOSYLATED HEMOGLOBIN (A1C) Collection Time: 04/28/20 5:36 PM Result Value Ref Range HGB A1C 4.5 4.0 - 6.0 % FERRITIN SERUM Collection Time: 04/28/20 5:36 PM Result Value Ref Range FERRITIN 688.0 (H) 18.0 - 464.0 ng/mL URINALYSIS Collection Time: 04/28/20 6:59 PM Result Value Ref Range APPEARANCE Clear Clear COLOR Shweta (A) Yellow PH 6.0 4.8 - 8.0 SP GRAVITY 1.018 1.003 - 1.030 GLU U QUAL Normal Normal BLOOD Negative Negative KETONES Negative Negative PROTEIN Negative Negative UROBILIN 4.0 mg/dL (A) Normal BILIRUBIN Negative Negative NITRITE Negative Negative LEUK JOSE Negative Negative RBC/HPF <1 0 - 3 HPF WBC/HPF 1 0 - 5 HPF BACTERIA Negative Negative ADC / LCC - DRUG SCREEN TRIAGE Collection Time: 04/28/20 7:10 PM Result Value Ref Range BENZO U Negative Negative BLAINE U Negative Negative AMPHET Negative Negative THC Negative Negative METHADONE Negative Negative Meth U Negative Negative OPIATES Presumptive Positive (A) Negative Cocaine Metabolite Negative Negative PROPOXY Negative Negative Tric U Negative Negative PCP Negative Negative OXYCOD Negative Negative COVID-19 (ID NOW RAPID TESTING) Collection Time: 04/28/20 7:10 PM Specimen: NASOPHARYNGEAL SWAB Result Value Ref Range SARS-CoV-2 Rapid ID NOW Not Detected Not Detected PROTHROMBIN TIME / INR Collection Time: 04/29/20 6:07 AM Result Value Ref Range PROTIME PATIENT 15.7 (H) 12.0 - 14.7 Seconds INR 1.3 PROTEIN CREAT RATIO URINE RANDOM Collection Time: 04/29/20 6:09 AM Result Value Ref Range T. PROT U 7 mg/dL CREAT U 125.6 mg/dL Protein/Creatinine Ratio Urine 0.1 0.0 - 2.0 SODIUM, URINE RANDOM Collection Time: 04/29/20 6:09 AM Result Value Ref Range NA URINE 6 mmol/L Imaging Hospital Encounter on 04/28/20 CT ABDOMEN PELVIS W CONTRAST Narrative ORDERING PHYSICIAN: DERICK BURGOS CLINICAL INFORMATION: Abd pain, acute, generalized COMPARISON: 02/24/2020 Technique: CT of the abdomen and pelvis was performed after the administration of IV contrast. No p.o. contrast was used. Multiplanar reformats were also obtained. This study was performed according to ALARA principle for radiation dose reduction. Findings: There is no evidence of obstructive uropathy. No suspicious renal parenchymal abnormalities are seen. Gallbladder surgically absent. Liver has a scalloped contour suggesting underlying cirrhosis. No intrahepatic biliary dilatation is seen. No distinct suspicious focal hepatic abnormalities are seen. The spleen is normal in size with no suspicious focal abnormalities. Adrenal glands are unremarkable. Pancreas also shows no evidence of acute abnormalities. There is no bowel obstruction. Appendix is normal. No free air is seen. Small to moderate amount of free fluid seen within the pelvis, along the paracolic gutters, as well as adjacent to the spleen and liver is new since the previous exam. Colonic diverticulosis without evidence of acute diverticulitis is seen involving the sigmoid colon. Mildly prominent lymph nodes measuring up to 2.5 x 1.9 cm are seen in the gerardo hepatis. There is atelectasis and scarring in the lung bases. No suspicious focal osseous lesions are seen. Impression 1. Free fluid seen in the pelvis, along the paracolic gutters, as well as adjacent to the spleen and liver. This is new since the previous exam. It likely represents ascites, however other sources, including inflammatory, cannot entirely be bowel. Please correlate clinically. 2. Cirrhotic liver. Status post cholecystectomy. 3. No bowel obstruction, appendicitis, free air, or focal loculated intraperitoneal fluid collections. 4. Mildly prominent lymph nodes in the gerardo hepatis are nonspecific but can be seen in the setting of cirrhosis as well as hepatitis. RL: 135 END OF REPORT Orders and Treatments Orders Placed This Encounter Procedures CT ABDOMEN PELVIS W CONTRAST XR CHEST 1 VW US ABDOMEN COMPLETE CBC WITH DIFF COMP. METABOLIC PANEL (76802) LIPASE LIPID PANEL (54727)(TOTAL CHOLESTEROL, TRIGLYCERIDES, HDL) URINALYSIS ETHANOL ADC / LCC - DRUG SCREEN TRIAGE MAGNESIUM THYROID STIMULATING HORMONE TROPONIN I COVID-19 (ID NOW RAPID TESTING) LAB ONLY COVID INTERPRETATION URIC ACID PHOSPHORUS CREATINE KINASE GLYCOSYLATED HEMOGLOBIN (A1C) PROTEIN CREAT RATIO URINE RANDOM SODIUM, URINE RANDOM OSMOLALITY URINE UREA NITROGEN, URINE RANDOM OSMOLALITY, SERUM OR PLASMA COMP. METABOLIC PANEL (60278) PROTHROMBIN TIME / INR MAGNESIUM N-TERMINAL PRO-BNP VITAMIN B12, LEVEL VITAMIN D, 25-OH FERRITIN SERUM IRON PANEL OCCULT (GUAIAC) BLOOD PROCALCITONIN TROPONIN I SEDIMENTATION RATE TROPONIN I BLOOD CULTURE SCREEN BLOOD CULTURE SCREEN CONSULT NEPHROLOGY CONSULT CARDIOLOGY CONSULT GASTROENTEROLOGY CONSULT ADULT PHYSICAL THERAPY O2 Per Protocol ECHO ROUTINE W/DOPPLER COLOR Orders Placed This Encounter Medications DISCONTD: morpHINE injection 4 mg ondansetron (ZOFRAN (PF)) injection 4 mg LORazepam (ATIVAN) injection 1 mg NaCl 0.9% (NS) bolus infusion 1,000 mL iohexol (OMNIPAQUE 350 BULK-150 mL) injection 120 mL morpHINE injection 4 mg DISCONTD: thiamine (VITAMIN B1) injection 100 mg LORazepam (ATIVAN) injection 1 mg DISCONTD: thiamine (VITAMIN B1) 100 mg, foLIC acid (FOLATE) 1 mg in D5W 0.45% NaCl (1/2NS) IV Solution NaCl 0.9% (NS) bolus infusion 1,000 mL magnesium sulfate in D5W 1 gram/100 mL RTU IV Piggyback 1 g thiamine (VITAMIN B1) tablet 100 mg foLIC acid (FOLATE) tablet 1 mg multivitamin tablet 1 tablet thiamine (VITAMIN B1) 100 mg, foLIC acid (FOLATE) 1 mg in D5W 0.45% NaCl (1/2NS) IV Solution magnesium sulfate 2,000 mg in D5W piggyback magnesium oxide (MAG-OX 400) tablet 400 mg docusate (COLACE) capsule 100 mg sennosides (SENOKOT) tablet 8.6 mg KCL (KLOR-CON M20) tablet 40 mEq enoxaparin (LOVENOX) injection 40 mg ondansetron (ZOFRAN (PF)) injection 4 mg DISCONTD: furosemide (LASIX) tablet 40 mg propranoloL (INDERAL) tablet 20 mg spironolactone (ALDACTONE) tablet 50 mg lactulose (CEPHULAC) solution 15 mL FOLLOWED BY Linked Order Group oxazepam (SERAX) capsule 15 mg oxazepam (SERAX) capsule 15 mg oxazepam (SERAX) capsule 15 mg oxazepam (SERAX) capsule 15 mg nicotine (NICODERM) 14 mg/24 hr patch 1 Patch furosemide (LASIX) injection 20 mg pantoprazole (PROTONIX) 40 mg in NaCl 0.9% (NS) 100 mL MINI-BAG HYDROcodone-acetaminophen (NORCO 5) 5-325 mg tablet 1 tablet Procedures See ED Procedure Note Notes & MDM Patient was evaluated for an emergency medical condition related to Other (multiple medical problems), SWELLING, and Shortness of Breath . Differential diagnoses considered by presenting complaints but not limited to. Alcohol withdrawal. Pancreatitis, Hepatobiliary dysfunction, Metabolic derangements, and others Labs:were ordered, and resulted, any relevant abnormalities were considered. Imaging:Ordered, and resulted, any relevant abnormalities were considered. IV fluids: tachycardia Procedures:were not performed. Assessment: Jose Montana is a 60 year old male with alcohol withdrawal and epigastric pain. Patient signed out to Dr. Arauz at shift change pending completion of workup. History, physical exam findings, results of visit, [...] ICD-9-CM 1. Epigastric pain R10.13 789.06 2. Alcohol withdrawal syndrome without complication F10.230 291.81 3. Hypomagnesemia E83.42 275.2 4. Alcoholic cirrhosis of liver with ascites K70.31 571.2 5. Generalized abdominal pain R10.84 789.07 6. Atypical chest pain R07.89 786.59 Disposition & Follow Up ED Disposition ED Disposition Condition Comment Admit - Inpatient Stable Is this patient COVID positive or a patient under investigation (PUI)?: No Treatment Team: [facility] [[id number]] Primary reason for admission: Alcohol withdrawal [291.81.ICD-9-CM] Secondary reason for admission: Hypomagnesemia [409119] Secondary reaso n for admission: Epigastric pain [463464] Is (or was) this a planned re-admission?: No My concerns are:: need for IV therapies My concerns are:: lab monitoring My concerns are:: electrolyte imbalance The risks to the patient are: morbidity or mo rtality in the short term Expected length of stay: At least 2 midnights Expected discharge disposition: Home Self Care Certification: I certify the inpatient services are medically necessary and in accordance with Medicare regulations. Dr. Ozuna i accepted at 3 Current Discharge Medication List STOP taking these medications lisinopril 30 mg tablet Comments: Reason for Stopping: NIFEDIPINE ER 30 mg tablet Comments: Reason for Stopping: Diclofenac Sodium (VOLTAREN) 1 % gel Comments: Reason for Stopping: foLIC acid 1 mg tablet Comments: Reason for Stopping: furosemide 20 mg tablet Comments: Reason for Stopping: KCL 20 mEq tablet Comments: Reason for Stopping: lidocaine 5 % (700 mg/patch) patch Comments: Reason for Stopping: Magnesium Oxide 420 mg Tab Comments: Reason for Stopping: pantoprazole 40 mg EC tablet Comments: Reason for Stopping: thiamine 100 mg tablet Comments: Reason for Stopping: venlafaxine XR 37.5 mg 24 hr capsule Comments: Reason for Stopping: HYDROcodone-acetaminophen 7.5-325 mg per tablet Comments: Reason for Stopping: Derick Burgos DO 04/28/2020 5:24 PM ACTIVE COVID-19 PANDEMIC. documented in this encounter Miscellaneous Notes Nursing Note - Paola Mcgrath RN - 04/29/2020 2:58 PM [id number] Nurse was checking on patient to give norco when [employer] came and notified nurse that patient was gone from room. All personal belongings were gone from room. Tele was left in the room. Patient left with IV in place. 1455 Notified nurse nurse healthcare manager, [place] and campus police. 1458 Called patient cell phone to ascertain status, and requested that patient return to get his IV removed if he was going AMA. D Nurse Note - Magy Zavala RN - 04/28/2020 9:06 PM CSTPatient admitted to 2226 for diagnosis of alcohol withdrawl Patient agrees to admission, discussed plan of care with patient and family. Patient is awake, alert, oriented, resp reg unlabored, color appropriate for race, PIV intact No adverse reaction to medications administered while in ED Belongings with patient to unit Report to HEIDI Joel D Nurse Note - Allison Hager RN - 04/28/2020 6:51 PM CSTReport given to HEIDI Bhatti documented in this encounter Plan of Treatment Name Type Priority Associated Diagnoses Date/Ti me BLOOD CULTURE SCREEN LAB Routine 021 6:07 AM CLIENT SERVICE REPRESENTATIVE BLOOD CULTURE SCREEN LAB Routine 021 6:07 AM CLIENT SERVICE REPRESENTATIVE Name Type Priority Associated Diagnoses Order S chedule OSMOLALITY, SERUM OR LAB Routine EVERY M ORNING AT PLASMA 0500 for 2 Days starting 2020 until 1, 1 completed COMP. METABOLIC PANEL LAB Routine EVERY MORNING AT (17009) 0500 for 3 Days starting 2020 until 1, 1 completed PROTHROMBIN TIME / LAB Routine EVERY MOR CARLOS AT INR 0500 for 2 Days starting 2020 until 1, 1 completed MAGNESIUM LAB Routine EVERY MORNING A T 0500 for 3 Days starting 2020 until 1, 1 completed N-TERMINAL PRO-BNP LAB Routine EVERY MOR CARLOS AT 0500 for 3 Days starting 2020 until 1, 1 completed OCCULT (GUAIAC) BLOOD LAB KAUR KAUR f or 1 Occurrences sta rting 04/29/2020 unti l 04/29/2020 TROPONIN I LAB Routine ONCE for 1 Occurrences sta rting 04/29/2020 unti l 04/29/2020 EKG-12 LEAD ROUTINE HEART STATION STAT Atypical chest pain ONCE for 1 ONCE Occurrences sta rting 04/29/2020 unti l 04/29/2020 AMMONIA, PLASMA LAB Routine ONCE for 1 Occurrences sta rting 04/29/2020 unti l 04/29/2020 EKG-12 LEAD ROUTINE HEART STATION Routine Chest pain, ONCE fo r 1 ONCE unspecified type Occurrences starting 04/29/2020 unti l 04/29/2020 Health Maintenance Due Date Last Done Comments PNEUMOCOCCAL 0-64 YEARS COMBINED SERIES (1 of 1 - 1967 PPSV23) Depression Screening 1973 DTaP,Tdap,and [...] encounter Procedures Procedure Name Priority Date/Time Associated Comments Diagnosis BILATERAL VENOUS KAUR 04/29/2020 1:36 DUPLEX LOWER EXTREMITY PM CLIENT SERVICE REPRESENTATIVE BY VASCULAR LAB ECHO ROUTINE W/DOPPLER Routine 04/29/2020 10:46 Atypical chest pain COLOR AM CLIENT SERVICE REPRESENTATIVE US ABDOMEN COMPLETE Routine 04/29/2020 10:28 Generalized Resu lts for this AM CLIENT SERVICE REPRESENTATIVE abdominal pain procedure are in the results section. XR CHEST 1 VW Routine 04/29/2020 6:15 Epigastric pain Results for this AM CLIENT SERVICE REPRESENTATIVE procedure are i n the results section. PROTEIN CREAT RATIO Routine 04/29/2020 6:09 Resu lts for this URINE RANDOM AM CLIENT SERVICE REPRESENTATIVE procedure are i n the results section. SODIUM, URINE RANDOM Routine 04/29/2020 6:09 Res ults for this AM CLIENT SERVICE REPRESENTATIVE procedure are i n the results section. SEDIMENTATION RATE KAUR 04/29/2020 6:08 Resul ts for this AM CLIENT SERVICE REPRESENTATIVE procedure are i n the results section. PROCALCITONIN Routine 04/29/2020 6:07 Results fo r this AM CLIENT SERVICE REPRESENTATIVE procedure are i n the results section. VITAMIN D, 25-OH Routine 04/29/2020 6:07 Results for this AM CLIENT SERVICE REPRESENTATIVE procedure are i n the results section. N-TERMINAL PRO-BNP Routine 04/29/2020 6:07 Resul ts for this AM CLIENT SERVICE REPRESENTATIVE procedure are i n the results section. PROTHROMBIN TIME / INR Routine 04/29/2020 6:07 R esults for this AM CLIENT SERVICE REPRESENTATIVE procedure are i n the results section. IRON PANEL Routine 04/29/2020 6:07 Results for this AM CLIENT SERVICE REPRESENTATIVE procedure are i n the results section. COMP. METABOLIC PANEL Routine 04/29/2020 6:07 Re sults for this (64131) AM CLIENT SERVICE REPRESENTATIVE procedure are i n the results section. TROPONIN I Routine 04/29/2020 6:07 Results for this AM CLIENT SERVICE REPRESENTATIVE procedure are i n the results section. VITAMIN B12, LEVEL Routine 04/29/2020 6:07 Resul ts for this AM CLIENT SERVICE REPRESENTATIVE procedure are i n the results section. OSMOLALITY, SERUM OR Routine 04/29/2020 6:07 Res ults for this PLASMA AM CLIENT SERVICE REPRESENTATIVE procedure are i n the results section. MAGNESIUM Routine 04/29/2020 6:07 Results for this AM CLIENT SERVICE REPRESENTATIVE procedure are i n the results section. BLOOD CULTURE SCREEN Routine 04/29/2020 6:07 AM CLIENT SERVICE REPRESENTATIVE BLOOD CULTURE SCREEN Routine 04/29/2020 6:07 AM CLIENT SERVICE REPRESENTATIVE UREA NITROGEN, URINE Routine 04/29/2020 1:08 Res ults for this RANDOM AM CLIENT SERVICE REPRESENTATIVE procedure are i n the results section. OSMOLALITY URINE Routine 04/29/2020 1:08 Results for this AM CLIENT SERVICE REPRESENTATIVE procedure are i n the results section. HB ECG ROUTINE & STAT 04/28/2020 7:44 Alcohol withdrawal RHYTHM STRIP PM CLIENT SERVICE REPRESENTATIVE syndrome without complication LAB ONLY COVID Routine 04/28/2020 7:10 Epigastric pain Result s for this INTERPRETATION PM CLIENT SERVICE REPRESENTATIVE procedure are in the results section. COVID-19 (ID NOW RAPID STAT 04/28/2020 7:10 Epigastric marlene n Results for this TESTING) PM CLIENT SERVICE REPRESENTATIVE procedure are i n the results section. ADC / LCC - DRUG STAT 04/28/2020 7:10 Epigastric pain Resu lts for this SCREEN TRIAGE PM CLIENT SERVICE REPRESENTATIVE procedure are in the results section. URINALYSIS STAT 04/28/2020 6:59 Epigastric pain Results for this PM CLIENT SERVICE REPRESENTATIVE procedure are i n the results section. CT ABDOMEN PELVIS W Routine 04/28/2020 6:41 Epigastric pain R esults for this CONTRAST PM CLIENT SERVICE REPRESENTATIVE procedure are i n the results section. GLYCOSYLATED KAUR Add-On 04/28/2020 5:36 Results for this HEMOGLOBIN (A1C) PM CLIENT SERVICE REPRESENTATIVE procedure a re in the results section. CBC WITH DIFF STAT 04/28/2020 5:36 Epigastric pain Results for this PM CLIENT SERVICE REPRESENTATIVE procedure are i n the results section. ETHANOL STAT 04/28/2020 5:36 Epigastric pain Results for this PM CLIENT SERVICE REPRESENTATIVE procedure are i n the results section. LIPID PANEL STAT 04/28/2020 5:36 Epigastric pain Results for this (35156)(TOTAL PM CLIENT SERVICE REPRESENTATIVE procedure are in CHOLESTEROL, the results TRIGLYCERIDES, HDL) section. COMP. METABOLIC PANEL STAT 04/28/2020 5:36 Epigastric pain Results for this (73084) PM CLIENT SERVICE REPRESENTATIVE procedure are i n the results section. THYROID STIMULATING STAT Add-On 04/28/2020 5:36 Epigastric pain R esults for this HORMONE PM CLIENT SERVICE REPRESENTATIVE procedure are i n the results section. TROPONIN I STAT Add-On 04/28/2020 5:36 Epigastric pain Results for this PM CLIENT SERVICE REPRESENTATIVE procedure are i n the results section. FERRITIN SERUM KAUR Add-On 04/28/2020 5:36 Results f or this PM CLIENT SERVICE REPRESENTATIVE procedure are i n the results section. MAGNESIUM STAT Add-On 04/28/2020 5:36 Epigastric pain Results for this PM CLIENT SERVICE REPRESENTATIVE procedure are i n the results section. LIPASE STAT 04/28/2020 5:36 Epigastric pain Results for this PM CLIENT SERVICE REPRESENTATIVE procedure are i n the results section. URIC ACID KAUR Add-On 04/28/2020 5:36 Results for this PM CLIENT SERVICE REPRESENTATIVE procedure are i n the results section. CREATINE KINASE KAUR Add-On 04/28/2020 5:36 Results for this PM CLIENT SERVICE REPRESENTATIVE procedure are i n the results section. PHOSPHORUS KAUR Add-On 04/28/2020 5:36 Results for this PM CLIENT SERVICE REPRESENTATIVE procedure are i n the results section. CONSENT/REFUSAL FOR Routine 04/28/2020 4:39 DIAGNOSIS AND PM CLIENT SERVICE REPRESENTATIVE TREATMENT [facility] Routine 04/28/2020 12:01 AM CLIENT SERVICE REPRESENTATIVE documented in this encounter Results US ABDOMEN COMPLETE (04/29/2020 10:28 AM CLIENT SERVICE REPRESENTATIVE) Specimen Narrative Performed At This result has an attachment that is no t available. HISTORY: Abdominal pain. Evaluate for sinusitis. PACS/VR/DOSE TECHNIQUE: Upper abdominal organs were evaluated in mu ltiple planes with the patient in multiple different positions, without a nd with color imaging. FINDINGS: Comparison is made with 04/28/2020 CT studies . Liver is is enlarged, 19.7 cm, spleen is 10 x 4 cm, ri ght kidney is 11.2 x 5.4 x 5.4 cm and left kidney is 10.1 x 5.1 x 4.4 cm in size. Liver showed diffuse increased echotexture without any focal liver lesions. Small amount of fluid noted surrounding the liver and spleen. No fo rajan lesions are detected in these organs. Cortex of both kidneys is ap proximately 13 mm. No hydronephrosis or aortic aneurysm detected. Visualized portions of the pancreas appear normal. Hepatic and portal venous syst em appear patent, with hepatopetal portal flow noted. Gallbladder has been removed. Common hepatic duct is 4.0 mm. CONCLUSIONS: 1. Hepatomegaly with diffuse increased echotexture of the parenchyma consistent with chronic primary liver disease includin g steatosis. 2. S/P cholecystectomy. Small amount of fluid is seen surrounding the liver and minimal fluid noted surrounding the spleen. Procedure Note [facility], Radiant Results Inft User - 2020 10:34 AM CLIENT SERVICE REPRESENTATIVE HISTORY: Abdominal pain. Evaluate for sinusitis. TECHNIQUE: Upper abdominal organs were e valuated in multiple planes with the patient in multiple different positi ons, without and with color imaging. FINDINGS: Comparison is made with CT studies. Liver is is enlarged, 19.7 cm, spleen is 10 x 4 cm, right kidney is 11.2 x 5.4 x 5.4 cm and left kidney is 10.1 x 5 .1 x 4.4 cm in size. Liver showed diffuse increased echotexture without an y focal liver lesions. Small amount of fluid noted surrounding the liver and spleen. No focal lesions are detected in these organs. Cortex of both kidneys is approximately 13 mm. No hydronephrosis or aortic aneurysm detect ed. Visualized portions of the pancreas appear normal. Hepatic and port al venous system appear patent, with hepatopetal portal flow noted. Gallbladder has been removed. Common he patic duct is 4.0 mm. CONCLUSIONS: 1. Hepatomegaly with diffuse increased e chotexture of the parenchyma consistent with chronic primary liver di sease including steatosis. 2. S/P cholecystectomy. Small amount of fluid is seen surrounding the liver and minimal fluid noted surrounding the spleen. Performing Organization Address City/State/Zipcode Phone Number PACS/VR/DOSE XR CHEST 1 VW (04/29/2020 6:15 AM CLIENT SERVICE REPRESENTATIVE) Specimen Impressions Performed At PACS/VR/DOSE No acute cardiopulmonary process. Stable process traumatic left-sided pleural thickening with multiple remote left-sided rib fractures. RL: 7000 8 :19 AM Narrative Performed At This result has an attachment that is no t available. Patient name: JOSE MONTANA PACS/VR/DOSE : 1960 60 years EXAMINATION: XR CHEST 1 VW Ordering Physician: JERZY ROSEN CLINICAL HISTORY: chest pain, dyspnea COMPARISON: 03/23/2019 TECHNIQUE: Single frontal view of the chest was performed. FINDINGS: Normal lung volumes. Lung parenchyma is clear. No foca l infiltrate or effusion. No edema. No pneumothorax. Heart size normal normal aortic contours. Postop changes of multiple left-sided ribs a re stable with adjacent chronic pleural thickening. Postop changes of left clavicle stable. No acute osseous abnormality. Procedure Note [facility], Radiant Results Inft User - 2020 8:20 AM CLIENT SERVICE REPRESENTATIVE Patient name: JOSE MONTANA : 1960 60 years EXAMINATION: XR CHEST 1 VW Ordering Physician: JERZY ROSEN CLINICAL HISTORY: chest pain, dyspnea COMPARISON: 03/23/2019 TECHNIQUE: Single frontal view of the chest was per formed. FINDINGS: Normal lung volumes. Lung parenchyma is clear. No focal infiltrate or effusion. No edema. No pneumothorax. Hea rt size normal normal aortic contours. Postop changes of multiple lef t-sided ribs are stable with adjacent chronic pleural thickening. Pos top changes of left clavicle stable. No acute osseous abnormality. IMPRESSION No acute cardiopulmonary process. Stable process traumatic left-sided pleural thickening with multiple remote left-sided rib fractures. RL: [id number] Performing Organization Address [facility] Phone Number PACS/VR/DOSE SODIUM, URINE RANDOM (04/29/2020 6:09 AM CLIENT SERVICE REPRESENTATIVE) Pathologist Sig [facility] NA URINE 6 mmol/L [facility] Specimen Urine - URINE, CLEAN CATCH Performing Organization Address [facility] Phone Number [facility] CLIA: [id number] [place] [address] PROTEIN CREAT RATIO URINE RANDOM (04/29/2020 6:09 AM CLIENT SERVICE REPRESENTATIVE) Pathologist Sig [facility] T. PROT U 7 mg/dL [facility] CREAT U 125.6 mg/dL [facility] Protein/Creatinine 0.1 0.0 - 2.0 [facility] LABORATORY Specimen Urine - URINE, CLEAN CATCH Narrative Performed At Random Urine Total Protein Reference Ran ges [facility] Random Specimen: Less than 10 mg/dL First Morning Specimen: Less than 20 mg/dL Performing Organization Address [facility] Number [facility] CLIA: [id number] [place] [address] SEDIMENTATION RATE (04/29/2020 6:08 AM CLIENT SERVICE REPRESENTATIVE) Pathologist Sig [place] ESR 18 (H) 0 - 10 mm/HR [facility] Specimen Blood - VENOUS Performing Organization Address [facility] Phone Number [facility] CLIA: [id number] [place] [address] TROPONIN I (04/29/2020 6:07 AM CLIENT SERVICE REPRESENTATIVE) Pathologist Sig [place] TROPONIN I 0.018 <=0.034 ng/mL [facility] Specimen Blood - VENOUS Narrative Performed At Equal or Less than 0.034 ng/ml---Normal [facility] Note: Cardiac troponin begins to rise 3-4 hours after the onset of ischemia. Repeat in 4-6 hours if the sample was drawn within 3-4 hours of the onset of the symptom and found normal. Between 0.035 and 0.120 ng/mL--- Borderline. Questionable myocardial injury or necros is Note: Serial measurement may be necessary to confirm or exclude the diagnosis of myocardial injury or necrosis; Clinical correlation (symptoms, EKGs, imaging studies, and others) required; Repeat in 4-6 hours if clinically indicated. Equal or Higher than 0.121 ng/mL---Abnormal. Myocardial Injury or Necrosis Likely Biotin has been reported to cause a negative bias, interpret results relative to patient's use of biotin. Performing Organization Address City/State/Zipcode Phone Number [facility] CLIA: [id number] [place] [address] PROCALCITONIN (04/29/2020 6:07 AM CLIENT SERVICE REPRESENTATIVE) Pathologist Renzo harley Procalcitonin 0.14 (H) <0.07 ng/mL [facility] LABORATORY SERVICES Specimen Blood - VENOUS Narrative Performed At INTERPRETATION OF PROCALCITONIN RESULTS IN ADULTS >= 1 8 [facility] LABORATORY SERVICES YEARS OF AGE Initiation and discontinuation of antibiotics on patie nts with suspected or confirmed Lower Respiratory Tract Infection in Adults >= 18 years of age. + + + +----- ------ + |Procalcitonin |Interpretation |Antibiotic |Considerations |ng/mL | |recommend ation | + + + +----- ------ + | <0.1 | Bacterial | Strongly | | | infection very | discouraged | Overruling: | | unlikely | | Clinically unstable + + + + H igh risk for adverse | <0.25 | Bacterial | Discouraged | outcome | | infection | | SEE IMPORTANT NOTE | | unlikely | | + + + +----- ------ + | >=0.25 | Bacterial | Encouraged | | | infection | | | | likely | | Consider treatment failure + + + + if l evels does not decrease | >0.5 | Bacterial | Strongly | appropriately | | infection very | encouraged | | | likely | | + + + +----- ------ + Discontinuation of antibiotics in high-acuity patients with suspected or confirmed sepsis in Adults >= 18 years of age. + + + +----- ------ + |Procalcitonin |Interpretation |Antibiotic |Considerations |ng/mL | |recommend ation | + + + +----- ------ + | <0.25 | Bacterial | Strongly | | | infection very | discouraged | Overruling: | | unlikely | | Clinically unstable + + + + H igh risk for adverse | <0.5 or drop | Bacterial | Discouraged | outcome | >80% from | infection | | SEE IMPORTANT NOTE | highest PCT | unlikely | | | level | | | + + + +----- ------ + | >=0.5 | Bacterial | Encouraged | | | infection | | | | likely | | Consider treatment failure + + + + if l evels does not decrease | >1.0 | Bacterial | Strongly | appropriately | | infection very | encouraged | | | likely | | + + + +----- ------ + Percentage of drop of Procalcitonin calculation for Discontinuation of antibiotics in high-acuity patients with suspected or confirmed sepsis in Adults >= 18 years of age. Procalcitonin highest{}-Procalcitonin current{} Delta Procalcitonin = x100% Procalcitonin current {} IMPORTANT NOTE: Procalcitonin may be elevated without bacterial infection by physiologic stress related to t rauma, calvo, chronic dialysis, metastatic cancer, surgery in the past seven days, malaria, some fungal infections, and some forms of vasculitis. The interpretation algorithm may not apply to patients with immunosuppression (equivalent o f >10 mg of prednisone daily), HIV with CD4 cell count < 350 cells/mm3, active malignancy on systemic chemotherapy, solid organ transplant or hematopoietic stem cell transplant ation, or hospital acquired pneumonia. Additionally, some cli nical trials of procalcitonin have excluded patients with sh ock requiring vasopressor use, acute respiratory failure requiring mechanical ventilation, or those with known lung abscess/empyema. For further information please refer to: [email or web address] Performing Organization Address [facility] Phone Number [facility] LABORATORY SERVICES CLIA: [id number] [place] [address] [place] [address] IRON PANEL (04/29/2020 6:07 AM CLIENT SERVICE REPRESENTATIVE) Pathologist Sig nature IRON 161 (H) 50 - 160 ug/dL [facility] TIBC 208 (L) 250 - 410 ug/dL [facility] % FE SAT 77 (H) 20 - 50 % [facility] Specimen Blood - VENOUS Performing Organization Address [facility] Phone Number [facility] CLIA: [id number] [place] [address] [place] [address] VITAMIN D, 25-OH (04/29/2020 6:07 AM CLIENT SERVICE REPRESENTATIVE) Pathologist Sig nature VIT D 25OH 19 (L) 25 - 80 ng/mL [facility] LABORATORY SERVICES Specimen Blood - VENOUS Narrative Performed At Deficiency: <20 ng/mL [facility] LABORATORY SERVICES Insufficiency: 20-24 ng/mL Optimal: 25-80 ng/mL Performing Organization Address [facility] Phone Number [facility] LABORATORY SERVICES CLIA: [id number] [place] [address] [place] [address] VITAMIN B12, LEVEL (04/29/2020 6:07 AM CLIENT SERVICE REPRESENTATIVE) Pathologist Sig nature VIT B12 453 240 - 930 pg/mL [facility] LABORATORY SERVICES Specimen Blood - VENOUS Narrative Performed At Biotin has been reported to cause a positive bias, int erpret [facility] LABORATORY SERVICES results relative to patient's use of biotin. Performing Organization Address City/State/[facility] Phone Number [facility] LABORATORY SERVICES CLIA: [id number] [place] [address] [place] [address] N-TERMINAL PRO-BNP (04/29/2020 6:07 AM CLIENT SERVICE REPRESENTATIVE) Pathologist Sig nature NT-proBNP 1,140 (H) <=125 pg/mL [facility] Specimen Blood - VENOUS Narrative Performed At [facility] has been reported to cause a negative [facility] LABORAT[facility] bias, interpret results relative to patient's use of biotin. Performing Organization Address [facility] Phone Number [facility] CLIA: [id number] [place] [address] MAGNESIUM (04/29/2020 6:07 AM CLIENT SERVICE REPRESENTATIVE) [facility] MAGNESIUM 1.3 (L) 1.7 - 2.4 mg/dL [facility]ORATORY Specimen Blood - VENOUS Performing Organization Address City/[facility] Phone Number [facility] CLIA: [id number] [place] [address] [address] PROTHROMBIN TIME / INR (04/29/2020 6:07 AM CLIENT SERVICE REPRESENTATIVE) PROTIME PATIENT 15.7 (H) 12.0 - 14.7 [facility] LABORATORY INR 1.3Comment: Normal [facility] INR <1.1; [facility] HOSPITAL Therapeutic range LABORATORY 2.0 to 3.0 or 2.5 to 3.5, depending upon the indications. Specimen Blood - VENOUS Performing Organization Address [facility] Phone Number [facility] CLIA: [id number] [place] [address] LABORATORY [address] [facility] COMP. METABOLIC PANEL ([id number]) (04/29/2020 6:07 AM CLIENT SERVICE REPRESENTATIVE) Pathologist Sig nature NA 133 (L) 135 - 145 [facility] mmol/L [facility] LABORATORY K 3.7 3.5 - 5.0 [facility] mmol/L [facility] LABORATORY CL 101 98 - 108 mmol/L [facility] CO2 TOTAL 28 23 - 31 mmol/L [facility] AGAP 4 2 - 16 [facility] BUN 4 (L) 7 - 23 mg/dL [facility] GLUCOSE 100 70 - 110 mg/dL [facility] CREATININE 1.00 0.60 - 1.25 [facility] mg/dL [facility] LABORATORY TOTAL BILI 2.4 (H) 0.1 - 1.1 mg/dL [facility] LABORATORY CALCIUM 7.4 (L) 8.6 - 10.6 [facility] mg/dL [facility] LABORATORY T PROTEIN 6.2 (L) 6.3 - 8.2 g/dL [facility] LABORATORY ALBUMIN 2.5 (L) 3.5 - 5.0 g/dL [facility] LABORATORY ALK PHOS 166 (H) 34 - 122 U/L [facility] ALTv 23 5 - 50 U/L [facility] AST(SGOT) 98 (H) 13 - 40 U/L [facility] LAB[facility]ORY eGFR Calculation 76.5 mL/min/1.73m2 [facility] [place]) eGFR Calculation 92.7 mL/min/1.73m2 [facility] () [facility] LABORATORY Specimen Blood - VENOUS Narrative Performed At Association of Glomerular Filtration Rate (GFR) [facility] LABORATORY and Staging of Kidney Disease* [...] abnormalities in imaging tests). Performing Organization Address City/[facility]/Zipcode Phone Number [facility] CLIA: [id number] [place] [address] OSMOLALITY, SERUM OR PLASMA (04/29/2020 6:07 AM CLIENT SERVICE REPRESENTATIVE) Pathologist Sig nature OSMOLALITY 276 (L) 278 - 305 mOsm/kg [facility] LABORATORY SERVICE S Specimen Blood - VENOUS Performing Organization Address [facility] Phone Number [facility] LABORATORY SERVICES CLIA: [id number] [place] [address] [address] [facility] UREA NITROGEN, URINE RANDOM (04/29/2020 1:08 AM CLIENT SERVICE REPRESENTATIVE) Pathologist Sig nature UREA N UR 235 mg/dL [facility] LABORATORY SERVICES Specimen Urine - URINE, CLEAN CATCH Performing Organization Address [facility] Phone Number [facility] LABORATORY SERVICES CLIA: [id number] [place] [address] [place] [address] OSMOLALITY URINE (04/29/2020 1:08 AM CLIENT SERVICE REPRESENTATIVE) Pathologist Sig nature OSMO U 433 50-1,100 mOsm/kg [facility] LABORATORY SERVICES Specimen Urine - URINE, CLEAN CATCH Performing Organization Address [facility] Phone Number [facility] LABORATORY SERVICES CLIA: [id number] [place] [address] [address] [facility] LAB ONLY COVID INTERPRETATION (04/28/2020 7:10 PM CLIENT SERVICE REPRESENTATIVE) COVID DMT Interpretation/Recommendations: [facility] LABO RATORY Interpretation SERVICES Molecular NAAT Tests for Active Infection with the SILVERIO S-CoV-2 Virus: This patient has tested nega tive on two occasions for the SARS-CoV-2 virus that causes COVID-19 illness. This most likely indicates that the patient does not have an active infection with the SARS-CoV-2 virus, especially if these tests coincide with the patient's current presentation. However, infection is not completely ruled out as the false negative rate for molecular NAAT testing using a nasophary ngeal sample can be up to 30 %, mostly dependent on the timing of sample collection in relation to illness onset and any deficiencies in sampling techniques. If the patient continues to have persistent o r worsening symptoms concern ing for COVID-19 illness, a repeat NAAT test (PCR, Rapid ID Now, etc.) should be performed, at which time the SARS-CoV-2 virus - if present - may have reached a detectable vi ral load (usually peaking by the end of the first week of symptoms). Tests for IgM and/or IgG Antibodies to SARS-CoV-2 Viru s: Testing for IgM and IgG anti bodies 1-3 weeks after illness onset will indicate whether the patient has produced antibodies to the virus. At this time, it is not known if the production of antibodies - s pecifically IgG antibodies - indicates whether the patient is immune to future infections with the SARS-CoV-2 virus. Interpretation Result Comments: These interpretation comment s are based upon all COVID-19 testing the patient has had at [facility], including molecular NAAT testing (more commonly known as PCR testing and Rapid ID Now testing) and antibody testing. It does not take i nto account any testing that a patient has had outside of the [facility] medical record. COVID Results SARS-CoV-2 Rapid ID NOW (no units) [facility] LABORATORY Date Value SERVICES 04/28/2020 Not Detected 02/24/2020 Not Detected Specimen Swab - NASOPHARYNGEAL SWAB Performing Organization Address City/State/Zipcode Phone Number [facility] LABORATORY SERVICES CLIA: [id number] [place] [address] [place] [address] COVID-19 (ID NOW RAPID TESTING) (04/28/2020 7:10 PM CLIENT SERVICE REPRESENTATIVE) [facility] SARS-CoV-2 Rapid ID Not Detected Not Detected [facility] LABORATORY Specimen Swab - NASOPHARYNGEAL SWAB Narrative Performed At DE NOW COVID-19 Assay is an isothermal nucleic [facility] LABORATORY acid amplification test intended for the qualitative detection of nucleic acid from SARS-CoV-2 viral RNA in nasopharyngeal (SUBMARINE WORKER) specimens. It is used under Emergency Use [...] testing if clinically indicated. Performing Organization Address City/State/Zipcode Phone Number [facility] CLIA: [id number] [place] [address] ADC / LCC - DRUG SCREEN TRIAGE (04/28/2020 7:10 PM CLIENT SERVICE REPRESENTATIVE) BENZO U Negative Negative [facility] LABORATORY BLAINE U Negative Negative [facility] AMPHET Negative Negative [facility] THC Negative Negative [facility] METHADONE Negative Negative [facility] Meth U Negative Negative [facility] OPIATES Presumptive Negative [facility] Positive (A) HOSPITAL LABORATORY Cocaine Metabolite Negative Negative [facility] PROPOXY Negative Negative [facility] Tric U Negative Negative [facility] PCP Negative Negative [facility] OXYCOD Negative Negative [facility] LABOR[facility] Specimen Urine - URINE, CLEAN CATCH Narrative Performed At Urine Drug Cutoff Ranges [facility] Benzodiazepines: 150 ng/mL Barbiturates: 200 ng/mL Amphetamine: 500 ng/mL Cannabinoids: 50 ng/mL Methadone: 200 ng/mL Methamphetamine: 500 ng/mL Opiates: 100 ng/mL or 2000 ng/mL Cocaine: 150 ng/mL Propoxyphene: 300 ng/mL Tricyclics: 300 ng/mL Oxycodone: 100 ng/mL PCP: 25 ng/mL The results are to be used only for medical (i.e., treatment) purposes. Unconfirmed screening results must not be used for non-medical purposes (e.g., employment testing, legal testing). Performing Organization Address [facility] Phone Number [facility] CLIA: [id number] [place] [address] URINALYSIS (04/28/2020 6:59 PM CLIENT SERVICE REPRESENTATIVE) Pathologist Sig nature APPEARANCE Clear Clear [facility] COLOR Shweta (A) Yellow [facility] PH 6.0 4.8 - 8.0 [facility] SP GRAVITY 1.018 1.003 - 1.030 [facility] GLU U QUAL Normal Normal [facility] BLOOD Negative Negative [facility] KETONES Negative Negative [facility] PROTEIN Negative Negative [facility] UROBILIN 4.0 mg/dL (A) Normal [facility] BILIRUBIN Negative Negative [facility] NITRITE Negative Negative [facility] LEUK JOSE Negative Negative [facility] RBC/HPF <1 0 - 3 HPF [facility] WBC/HPF 1 0 - 5 HPF [facility] BACTERIA Negative Negative [facility] LAB[facility] Specimen Urine - URINE, CLEAN CATCH Performing Organization Address [facility] Phone Number [facility] CLIA: [id number] [place] [address] [place] [address] CT ABDOMEN PELVIS W CONTRAST (04/28/2020 6:41 PM CLIENT SERVICE REPRESENTATIVE) Specimen Impressions Performed At PACS/VR/DOSE 1. Free fluid seen in the pelvis, along the paracoli c gutters, as well as adjacent to the spleen and liver. This is new since th e previous exam. It likely represents ascites, however other sources, incl uding inflammatory, cannot entirely be bowel. Please correla te clinically. 2. Cirrhotic liver. Status post cholecys tectomy. 3. No bowel obstruction, appendicitis, f ree air, or focal loculated intraperitoneal fluid collections. 4. Mildly prominent lymph nodes in the p arleth hepatis are nonspecific but can be seen in the setting of cirrhosis as well as hepatitis. RL: 135 END OF REPORT Electronically signed by Simone Li MD at 1 7:42 PM Narrative Performed At This result has an attachment that is no t available. ORDERING PHYSICIAN: DERICK BURGOS PACS/VR/DOSE CLINICAL INFORMATION: Abd pain, acute, generalized COMPARISON: 02/24/2020 Technique: CT of the abdomen and pelvis was perform ed after the administration of IV contrast. No p.o. contrast was us ed. Multiplanar reformats were also obtained. This study was performed according to ALARA principle for radiation dose reduction. Findings: There is no evidence of obstructive uropathy. No suspi cious renal parenchymal abnormalities are seen. Gallbladder surgically absent. Liver has a scalloped c ontour suggesting underlying cirrhosis. No intrahepatic biliary dilatati on is seen. No distinct suspicious focal hepatic abnormalities are se en. The spleen is normal in size with no suspicious focal abnormalities. Adrenal glands are unremarkable. Pancreas also shows no evidence of acute abnormalities. There is no bowel obstruction. Appendix is normal. No free air is seen. Small to moderate amount of free fluid seen within the pelvis, along the paracolic gutters, as well as adjacent to the spleen a nd liver is new since the previous exam. Colonic diverticulosis without evid ence of acute diverticulitis is seen involving the sigmoid colon. Mi ldly prominent lymph nodes measuring up to 2.5 x 1.9 cm are seen in the por ta hepatis. There is atelectasis and scarring in the lung bases. N o suspicious focal osseous lesions are seen. Procedure Note [facility], Radiant Results Inft User - 2020 7:43 PM CLIENT SERVICE REPRESENTATIVE ORDERING PHYSICIAN: DERICK BURGOS CLINICAL INFORMATION: Abd pain, acute, generalized COMPARISON: 02/24/2020 Technique: CT of the abdomen and pelvi s was performed after the administration of IV contrast. No p.o. c ontrast was used. Multiplanar reformats were also obtained. This study was performed according to ALARA principle for radiation dose reduction. Findings: There is no evidence of obstructive urop athy. No suspicious renal parenchymal abnormalities are seen. Gallbladder surgically absent. Liver has a scalloped contour suggesting underlying cirrhosis. No intrahepatic bi liary dilatation is seen. No distinct suspicious focal hepatic abnorm alities are seen. The spleen is normal in size with no suspicious focal abnormalities. Adrenal glands are unremarkable. Pancreas also shows no idalmis dence of acute abnormalities. There is no bowel obstruction. Appendix is normal. No free air is seen. Small to moderate amount of free fluid s een within the pelvis, along the paracolic gutters, as well as adjacent t o the spleen and liver is new since the previous exam. Colonic diverticulosi s without evidence of acute diverticulitis is seen involving the sig moid colon. Mildly prominent lymph nodes measuring up to 2.5 x 1.9 cm are s een in the gerardo hepatis. There is atelectasis and scarring in the lung bases. No suspicious focal osseous lesions are seen. IMPRESSION 1. Free fluid seen in the pelvis, along the paracolic gutters, as well as adjacent to the spleen and liver. This i s new since the previous exam. It likely represents ascites, however other sources, including inflammatory, cannot entirely be bowel. Please correla te clinically. 2. Cirrhotic liver. Status post cholecys tectomy. 3. No bowel obstruction, appendicitis, f ree air, or focal loculated intraperitoneal fluid collections. 4. Mildly prominent lymph nodes in the p arleth hepatis are nonspecific but can be seen in the setting of cirrhosis as well as hepatitis. RL: 135 END OF REPORT Performing Organization Address City/[place]/[employer] Phone Number PACS/VR/DOSE FERRITIN SERUM (04/28/2020 5:36 PM CLIENT SERVICE REPRESENTATIVE) Pathologist Sig nature FERRITIN 688.0 (H) 18.0 - 464.0 ng/mL [facility] Specimen Blood - VENOUS Narrative Performed At Biotin has been reported to cause a negative [facility] bias, interpret results relative to patient's use of biotin. Performing Organization Address City/[facility]/[employer] Phone Number [facility] CLIA: [id number] [place] [address] GLYCOSYLATED HEMOGLOBIN (A1C) (04/28/2020 5:36 PM CLIENT SERVICE REPRESENTATIVE) Pathologist Sig nature HGB A1C 4.5 4.0 - 6.0 % [facility] Specimen Blood - VENOUS Narrative Performed At %A1C (NGSP) Interpretation (ADA) [facility] 4.8-5.6 Normal or (Non-Diabetic Ra nge) 5.7-6.4 Increased Risk (Pre-Diabet ic) >6.5 Diabetes Indicated Performing Organization Address City/[facility]/Zipcode Phone Number [facility] CLIA: [id number] [place] [address] CREATINE KINASE (04/28/2020 5:36 PM CLIENT SERVICE REPRESENTATIVE) Pathologist Sig nature CK 53 33 - 194 U/L [facility] Specimen Blood - VENOUS Performing Organization Address [facility] Phone Number [facility] CLIA: [id number] [place] [address] PHOSPHORUS (04/28/2020 5:36 PM CLIENT SERVICE REPRESENTATIVE) Pathologist Sig nature PHOSPHORUS 3.0 2.5 - 5.0 mg/dL [facility] Specimen Blood - VENOUS Performing Organization Address [facility] Phone Number [facility] CLIA: [id number] [place] [address] URIC ACID (04/28/2020 5:36 PM CLIENT SERVICE REPRESENTATIVE) Pathologist Sig nature URIC ACID 8.1 (H) 3.6 - 8.0 mg/dL [facility] Specimen Blood - VENOUS Performing Organization Address [facility] Phone Number [facility] CLIA: [id number] [place] [address] TROPONIN I (04/28/2020 5:36 PM CLIENT SERVICE REPRESENTATIVE) Pathologist Sig [facility] TROPONIN I <0.012 <=0.034 ng/mL [facility] Specimen Blood - VENOUS Narrative Performed At Equal or Less than 0.034 ng/ml---Normal [facility] Note: Cardiac troponin begins to rise 3-4 hours after the onset of ischemia. Repeat in 4-6 hours if the sample was drawn within 3-4 hours of the onset of the symptom and found normal. Between 0.035 and 0.120 ng/mL--- Borderline. Questionable myocardial injury or necros is Note: Serial measurement may be necessary to confirm or exclude the diagnosis of myocardial injury or necrosis; Clinical correlation (symptoms, EKGs, imaging studies, and others) required; Repeat in 4-6 hours if clinically indicated. Equal or Higher than 0.121 ng/mL---Abnormal. Myocardial Injury or Necrosis Likely Biotin has been reported to cause a negative bias, interpret results relative to patient's use of biotin. Performing Organization Address [facility] Phone Number [facility] CLIA: [id number] [place] [address] THYROID STIMULATING HORMONE (04/28/2020 5:36 PM CLIENT SERVICE REPRESENTATIVE) Pathologist Sig nature TSH 2.52 0.45 - 4.70 mIU/L [facility] Specimen Blood - VENOUS Performing Organization Address [facility] Phone Number [facility] CLIA: [id number] [place] [address] MAGNESIUM (04/28/2020 5:36 PM CLIENT SERVICE REPRESENTATIVE) Pathologist Sig nature MAGNESIUM 1.1 (L) 1.7 - 2.4 mg/dL [facility] Specimen Blood - VENOUS Performing Organization Address [facility] Phone Number [facility] CLIA: [id number] [place] [address] ETHANOL (04/28/2020 5:36 PM CLIENT SERVICE REPRESENTATIVE) Pathologist Sig nature ALCOHOL 37 mg/dL [facility] Specimen Blood - VENOUS Narrative Performed At <10 Negative [facility] 50-100 Toxic >100 Depression of [employer] >400 Fatalities Reported Performing Organization Address [facility] Phone Number [facility] CLIA: [id number] [place] [address] LIPID PANEL ([id number])(TOTAL CHOLESTEROL, TRIGLYCERIDES, HDL) (04/28/2020 5:36 PM CLIENT SERVICE REPRESENTATIVE) Pathologist Sig nature CHOL 101 (L) 120 - 200 mg/dL [facility] HDL 38 (L) >40 mg/dL [facility] HDLC RATIO 2.7 <=5.0 [facility] TRIG 111 30 - 170 mg/dL [facility] LDL CHOL 41 <=160 mg/dL [facility] VLDL 22 5 - 60 mg/dL [facility] Specimen Blood - VENOUS Performing Organization Address City/[facility]/Zipcode Phone Number [facility] CLIA: [id number] [place] [address] LIPASE (04/28/2020 5:36 PM CLIENT SERVICE REPRESENTATIVE) Pathologist Sig nature LIPASE 73 0 - 220 U/L [facility] Specimen Blood - VENOUS Performing Organization Address City/[facility]/Zipcode Phone Number [facility] CLIA: [id number] [place] [address] COMP. METABOLIC PANEL ([id number]) (04/28/2020 5:36 PM CLIENT SERVICE REPRESENTATIVE) Pathologist Sig nature NA 134 (L) 135 - 145 [facility] mmol/L [facility] K 3.3 (L) 3.5 - 5.0 [facility] mmol/L [facility] CL 99 98 - 108 mmol/L [facility] CO2 TOTAL 23 23 - 31 mmol/L [facility] AGAP 12 2 - 16 [facility] BUN 4 (L) 7 - 23 mg/dL [facility] GLUCOSE 118 (H) 70 - 110 mg/dL [facility] CREATININE 1.06 0.60 - 1.25 [facility] mg/dL [facility] TOTAL BILI 2.0 (H) 0.1 - 1.1 mg/dL [facility] CALCIUM 8.2 (L) 8.6 - 10.6 [facility] mg/dL [facility] T PROTEIN 7.3 6.3 - 8.2 g/dL [facility] ALBUMIN 3.2 (L) 3.5 - 5.0 g/dL [facility] ALK PHOS 202 (H) 34 - 122 U/L [facility] ALTv 30 5 - 50 U/L [facility] AST(SGOT) 150 (H) 13 - 40 U/L [facility] eGFR Calculation 71.5 mL/min/1.73m2 [facility] ([facility] LABORATORY [place]ican) eGFR Calculation 86.7 mL/min/1.73m2 [facility] () [facility] Specimen Blood - VENOUS Narrative Performed At [employer] Glomerular Filtration Rate (GFR) [facility] and Staging of Kidney Disease* + [...] tests). Performing Organization Address City/State/Zipcode Phone Number [facility] CLIA: [id number] [place] [address] CBC WITH DIFF (04/28/2020 5:36 PM CLIENT SERVICE REPRESENTATIVE) Pathologist Sig nature WBC 14.36 (H) 4.20 - 10.70 [facility] 10*3/L [facility] RBC 3.21 (L) 4.26 - 5.52 [facility] 10*6/L [facility] HGB 12.1 (L) 12.2 - 16.4 [facility] g/dL [facility] HCT 33.0 (L) 38.4 - 49.3 % [facility] MCV 102.8 (H) 81.7 - 95.6 fL [facility] MCH 37.7 (H) 26.1 - 32.7 pg [facility] MCHC 36.7 (H) 31.2 - 35.0 [facility] g/dL [facility] RDW-SD 48.0 38.5 - 51.6 fL [facility] RDW-CV 12.7 12.1 - 15.4 % [facility] PLT 205 150 - 328 [facility] 10*3/L [facility] MPV 12.4 9.8 - 13.0 fL [facility] NRBC/100 WBC 0.0 0.0 - 10.0 /100 [facility] WBCs [facility] NRBC x10^3 <0.01 10*3/L [facility] GRAN MAT (NEUT) % 66.2 % [facility] IMM GRAN % 0.50 % [facility] LYMPH % 23.9 % [facility] MONO % 8.5 % [facility] EOS % 0.2 % [facility] BASO % 0.7 % [facility] GRAN MAT x10^3(ANC) 9.51 (H) 1.99 - 6.95 [facility] 10*3/uL [facility] IMM GRAN x10^3 0.07 (H) 0.00 - 0.06 [facility] 103/uL [facility] LYMPH x10^3 3.43 (H) 1.09 - 3.23 [facility] 10*3/uL [facility] MONO x10^3 1.22 (H) 0.36 - 1.02 [facility] 10*3/uL [facility] EOS x10^3 0.03 (L) 0.06 - 0.53 [facility] 10*3/uL [facility] BASO x10^3 0.10 (H) 0.01 - 0.09 [facility] 103/[facility] LABORATORY Specimen Blood - VENOUS Performing Organization Address City/State/Zipcode Phone Number [facility] CLIA: [id number] [place] [address] documented in this encounter Visit Diagnoses Diagnosis Epigastric pain Abdominal pain, epigastric Alcohol withdrawal syndrome without comp lication Hypomagnesemia Disorders of magnesium metabolism Alcoholic cirrhosis of liver with ascite s Alcoholic cirrhosis of liver Generalized abdominal pain Abdominal pain, generalized Atypical chest pain Other chest pain Chest pain, unspecified type Bilateral leg edema Edema Obesity (BMI 30-39.9) Obesity, unspecified documented in this encounter Administered Medications Medication Order MAR Action Action Date Dose Rate Site docusate (COLACE) capsule 100 mg Given 04/29/2020 3:05 AM CLIENT SERVICE REPRESENTATIVE 100 mg 100 mg, Oral, BID, First dose on Racheal 04/29/20 at 0045, Until Discontinued, Routine enoxaparin (LOVENOX) injection 40 mg 40 mg, Subcutaneous, DAILY, First dose o n Sun04/29/20 at 1700, Until Discontinued, Routine foLIC acid (FOLATE) tablet 1 mg Given 04/29/2020 10:13 AM CLIENT SERVICE REPRESENTATIVE 1 mg 1 mg, Oral, DAILY, First dose on Sun04/29/20 at 0900, Until Discontinued, Routine furosemide (LASIX) injection 20 mg Given 04/29/2020 3:05 AM CLIENT SERVICE REPRESENTATIVE 20 mg 20 mg, IV Push, QAM+PM, First dose on Sun04/29/20 at 0115, Until Discontinued, Routine HYDROcodone-acetaminophen (NORCO 5) 5-325 Given 2020 3:05 AM CLIENT SERVICE REPRESENTATIVE 1 tablet mg tablet 1 tablet 1 tablet, Oral, TIDPRN, Starting Sun04/29/20 at 0156, Until Discontinued, Routine, Pain (scale 4-6), Pain (scale 7-10) ipratropium-albuteroL (DUONEB) 0.5 mg-3 mg(2.5 Given 0 04/29/2020 12:12 PM CLIENT SERVICE REPRESENTATIVE 3 mL mg base)/3 mL nebulizer solution 3 mL 3 mL, Inhalation, Q6HPRN, Starting Sun04/29/20 at 1204, Until Discontinued, Routine, Wheezing, Shortness of Breath lactulose (CEPHULAC) solution 15 mL Given 04/29/2020 10:13 AM CLIENT SERVICE REPRESENTATIVE 15 mL 15 mL, Oral, DAILY, First dose on Sun04/29/20 at 0045, Until Discontinued, Routine magnesium oxide (MAG-OX 400) tablet 400 mg Given 04/29/2020 3:05 AM CLIENT SERVICE REPRESENTATIVE 400 mg 400 mg, Oral, BID, First dose on Sun04/29/20 at 0030, Until Discontinued, Routine multivitamin tablet 1 tablet Given 04/29/2020 10:13 AM CLIENT SERVICE REPRESENTATIVE 1 tablet 1 tablet, Oral, DAILY, First dose on Sun04/29/20 at 0030, Until Discontinued, Routine nicotine (NICODERM) 14 mg/24 hr patch 1 Given 04/29/2020 3:06 A M CLIENT SERVICE REPRESENTATIVE 1 Patch Patch 1 Patch, Topical, Administer over 24 Hours, Q24H, First dose on Sun04/29/20 at 0200, Until Discontinued, Routine ondansetron (ZOFRAN (PF)) injection 4 mg Given 04/29/2020 1:05 AM CLIENT SERVICE REPRESENTATIVE 4 mg 4 mg, Slow IV Push, Q6HPRN, Starting Sun04/29/20 at 0036, Until Discontinued, Routine, Nausea and Vomiting (N/V) oxazepam (SERAX) capsule 15 mg Given 04/29/2020 11:49 AM CLIENT SERVICE REPRESENTATIVE 15 mg 15 mg, Oral, Q6H, 4 doses, First dose on Sun04/29/20 at 0600, Last dose on Sun04/30/20 at 0000, Routine Given 04/29/2020 6:00 AM CLIENT SERVICE REPRESENTATIVE 15 mg oxazepam (SERAX) capsule 15 mg 15 mg, Oral, Q8H, 3 doses, First dose on Sun04/30/20 a t 0600, Last dose on Sun04/30/20 at 2200, Routine oxazepam (SERAX) capsule 15 mg 15 mg, Oral, Q12H, 2 doses, First dose on Sun05/01/20 at 0800, Last dose on Sun05/01/20 at 2000, Routine oxazepam (SERAX) capsule 15 mg Given 04/29/2020 5:44 AM CLIENT SERVICE REPRESENTATIVE 15 mg 15 mg, Oral, Q4HPRN, Starting Sun04/29/20 at 0043, Until Discontinued, Routine, Only while awake for DBP equal to or greater than 100, HR equal to or greater than 100. Given 04/29/2020 1:05 AM CLIENT SERVICE REPRESENTATIVE 15 mg pantoprazole (PROTONIX) 40 mg in NaCl 0.9% Given 04/29/2020 3:0 5 AM CLIENT SERVICE REPRESENTATIVE 40 mg (NS) 100 mL MINI-BAG 40 mg, IV Piggyback, Q24H, First dose on Sun04/29/20 at 0215, Until Discontinued, 100 mL propranoloL (INDERAL) tablet 20 mg Given 04/29/2020 1:05 AM CLIENT SERVICE REPRESENTATIVE 20 mg 20 mg, Oral, BID, First dose on Sun04/29/20 at 0045, Until Discontinued, Routine sennosides (SENOKOT) tablet 8.6 mg Given 04/29/2020 3:05 AM CLIENT SERVICE REPRESENTATIVE 8.6 mg 8.6 mg, Oral, BID, First dose on Sun04/29/20 at 0045, Until Discontinued, Routine spironolactone (ALDACTONE) tablet 50 mg 50 mg, Oral, DAILY, First dose on Racheal at 0900, Until Discontinued, Routine thiamine (VITAMIN B1) tablet 100 mg Given 04/29/2020 10:13 AM CLIENT SERVICE REPRESENTATIVE 100 mg 100 mg, Oral, DAILY, First dose on Sun04/29/20 at 0030, Until Discontinued, Routine Given 04/29/2020 3:05 AM CLIENT SERVICE REPRESENTATIVE 100 mg Medication Order MAR Action Action Date Dose Rate Site iohexol (OMNIPAQUE 350 BULK-150 Given 04/28/2020 6:38 PM CLIENT SERVICE REPRESENTATIVE 12 0 mL mL) injection 120 mL 120 mL, Intravenous, ONCE, 1 dose, Sun04/28/20 at 1845, Routine KCL (KLOR-CON M20) tablet 40 mEq Given 04/29/2020 3:05 AM CLIENT SERVICE REPRESENTATIVE 40 mEq 40 mEq, Oral, ONCE, 1 dose, Sun04/29/20 at 0145, Routine LORazepam (ATIVAN) injection 1 mg Given 04/28/2020 5:42 PM CLIENT SERVICE REPRESENTATIVE 2 mg 1 mg, Slow IV Push, ONCE, 1 dose, Sun04/28/20 at 1830, STAT LORazepam (ATIVAN) injection 1 mg Given 04/28/2020 7:18 PM CLIENT SERVICE REPRESENTATIVE 1 mg Left Arm 1 mg, Slow IV Push, ONCE, 1 dose, Sun04/28/20 at 2015, STAT magnesium sulfate 2,000 mg in D5W New Bag 04/29/2020 6:00 AM CLIENT SERVICE REPRESENTATIVE 2,000 mg piggyback 2,000 mg, IV Infusion, ONCE, 1 dose, Racheal 04/29/20 at 0130, 100 mL magnesium sulfate in D5W 1 gram/100 mL RTU IV Given 04/28/19 21 8:51 PM CLIENT SERVICE REPRESENTATIVE 1 g Piggyback 1 g 1 g, IV Piggyback, ONCE, 1 dose, Sun04/28/20 at 2100, 100 mL morpHINE injection 4 mg Given 04/28/2020 10:18 PM CLIENT SERVICE REPRESENTATIVE 4 mg 4 mg, Slow IV Push, Q4HPRN, Starting Sun04/28/20 at 1721, Until Racheal 04/29/20 at 0029, Routine, Pain (scale 7-10) Given 04/28/2020 5:39 PM CLIENT SERVICE REPRESENTATIVE 4 mg morpHINE injection 4 mg Given 04/28/2020 6:59 PM CLIENT SERVICE REPRESENTATIVE 4 mg Left Arm 4 mg, Slow IV Push, ONCE, 1 dose, Sun04/28/20 at 1900, STAT NaCl 0.9% (NS) bolus infusion New Bag 04/28/2020 5:37 PM CLIENT SERVICE REPRESENTATIVE 1,000 mL 999 mL/hr 1,000 mL at 999 mL/hr, 1,000 mL, IV Infusion, ONCE, 1 dose, 04/28/20 at 1730, STAT NaCl 0.9% (NS) bolus infusion New Bag 04/28/2020 8:50 PM CLIENT SERVICE REPRESENTATIVE 1,000 mL 999 mL/hr 1,000 mL at 999 mL/hr, 1,000 mL, IV Infusion, ONCE, 1 dose, Sun04/28/20 at 2100, STAT ondansetron (ZOFRAN (PF)) injection 4 mg Given 04/28/2020 5:39 PM CLIENT SERVICE REPRESENTATIVE 4 mg 4 mg, Slow IV Push, ONCE, 1 dose, 04/28/20 at 1830, Routine perflutren lipid microspheres (DEFINITY) Given 04/29/2020 12:15 PM CLIENT SERVICE REPRESENTATIVE 2 mL injection 2 mL 2 mL, IV Push, ONCE, 1 dose, Racheal 04/29/20 at 1400, Routine thiamine (VITAMIN B1) 100 mg, foLIC New Bag 04/28/2020 7:58 PM CS T 125 mL/hr acid (FOLATE) 1 mg in D5W 0.45% NaCl (1/2NS) IV Solution IV Infusion, at 125 mL/hr, CONTINUOUS, Starting Sun04/28/20 at 2030, Until Racheal 04/29/20 at 0029, 1,000 mL documented in this encounter Additional Health Concerns Infection Onset Date Last Indicated Resolved Time COVID-19 Rule Out 04/28/2020 04/28/2020 04/28/2020 7: 34 PM CLIENT SERVICE REPRESENTATIVE documented as of this encounter Insurance Payer Benefit Plan / Subscriber ID Effective Phone Address T ype Group Dates [employer] [id number] 2017-Jessica [place] [id number] [place] [address] (Home) [place] [address] documented as of this encounter
[2020-05-01 18:22] LABS: Absolute Lymphocytes (CBC) 3.1 K/uL (0.7-4.9); Basophils % 1.4 % (0-1.3); Hematocrit 35.6 % (39.6-49.0); Lymphocytes % 28.9 % (15.3-44.8); MPV 11.2 fL (7.6-11.3); RBC Red Blood Cell Count 3.28 M/uL (4.33-5.43)
[2020-05-01 18:23] LABS: Protime INR 1.13
[2020-05-01 18:39] LABS: ALT/SGPT 38 U/L (12-78); AST/SGOT 166 U/L (15-37); Albumin 2.7 g/dL (3.4-5.0); Alkaline Phosphatase 217 U/L (45-117); BUN Blood Urea Nitrogen 3 mg/dL (7-18); Bicarbonate 24 mmol/L (21-32); Bilirubin Direct 0.8 mg/dL (0-0.2); Bilirubin Total 1.2 mg/dL (0.2-1.0); Glucose Level 116 mg/dL (74-106); Magnesium 1.7 mg/dL (1.8-2.4); NT PRO-BNP 512 pg/mL (<125); Potassium 3.4 mmol/L (3.5-5.1); Protein, Total 7.8 g/dL (6.4-8.2); Sodium Level 137 mmol/L (136-145); Troponin (Emerg Dept Use Only) < 0.02 ng/mL (0.0-0.045)
--- NOTE | 2020-05-01 18:51 | RAD REPORT ---
EXAM DESCRIPTION: RAD - Chest Single View - 05/01/2020 6:39 pm CLINICAL HISTORY: SOB Chest pain. COMPARISON: Chest Single View dated 03/06/2020; Chest Single View dated 12/01/2019; Chest Single View dated 06/21/2019; Chest Single View dated 10/30/2018 FINDINGS: Portable technique limits examination quality. The lungs are grossly clear. The heart is normal in size. No displaced fractures.Hardware is noted le ft clavicle and left rib cage. IMPRESSION: No acute intrathoracic process suspected.
[2020-05-01 18:52] LABS: Blood Morphology Comment NOTED (NOT SEEN); Macrocytosis 1+; Platelet Estimate ADEQ; White Blood Cell Scan OK (OK)
[2020-05-01] MEDS ORDERED: NA CHLORIDE 0.9% 1,000 ML ONE (19:23)
[2020-05-01] MEDS ORDERED: FOLIC ACID 5 MG/ML VIAL ONE (19:25)
[2020-05-01] MEDS ORDERED: MULTIVITAMINS 10 ML VIAL (INJ) IV ONE (19:25)
[2020-05-01 19:32] LABS: SARS-COV-2 RT PCR NEGATIVE (NEGATIVE)
[2020-05-01] MEDS ORDERED: POTASSIUM 25 MEQ EFFERV TAB ONE (19:48)
[2020-05-01] MEDS ORDERED: MAGNESIUM SULFATE 1 gm IVPB 1 GM/100 ML BAG IV ONE (19:48)
[2020-05-01] MEDS ORDERED: LORazepam 2 MG/ML VIAL ONE (19:56)
[2020-05-01] MEDS ORDERED: MORPHINE 2 MG/ML SYR ONE (19:56)
--- NOTE | 2020-05-01 20:33 | RAD REPORT ---
EXAM DESCRIPTION: CTAbdomen Pelvis W Contrast - 05/01/2020 8:22 pm CLINICAL HISTORY: Abdominal pain. ABD PAIN COMPARISON: Abdomen Pelvis W Contrast dated 12/01/2019; Chest Single View dated 05/01/2020; Angio A arleth For Dissection dated 03/06/2020 TECHNIQUE: Biphasic CT imaging of the abdomen and pelvis was performed with 100 ml non-ionic IV cont rast. All CT scans are performed using dose optimization technique as appropriate and may include automated exposure control or mA/KV adjustment according to patient size. FINDINGS: The lung bases are clear.Small hiatal hernia. Mild diffuse fatty liver is present. Cholecystectomy. The spleen, pancreas, adrenal glands kidneys ar e within normal limits. Mild ascites is present. Small focal fat containing ventral hernias are present. No bowel obstruction or free air is present. Mild sigmoid diverticulosis coli without diverticulitis. The appendix is not identified as a discrete structure, however, no secondary findings of appendicitis are identified. No evidence of significant lymphadenopathy. No suspicious bony findings. Small bilateral inguinal hernias containing fat. IMPRESSION: Prominent diffuse fatty liver. Mild ascites. Sigmoid diverticulosis coli without diverticulitis.
--- NOTE | 2020-05-01 21:39 | EDPHYS ---
Physician Documentation [facility] Name: Jose Toussaint Age: 60 yrs Sex: Male : 1960 Arrival Date: 05/01/2020 Time: 17:59 Bed 6 Private MD: ED Physician Tk Muse HPI: 05/01 18:14 This 60 yrs old Male presents to ER via EMS with complaints of Shortness Of cp Breath, Abdominal Swelling. 18:14 The patient has shortness of breath with light activity. Onset: The symptoms/episode cp began/occurred gradually. Duration: The symptoms are continuous, and are steadily getting worse. Associated signs and symptoms: Pertinent positives: non-productive cough, Pertinent negatives: chest pain, fever, vomiting. The patient has been recently seen by a physician: Wanda with similar presenting complaints, and apparently given a diagnosis of cirrhosis. Historical: - Allergies: 18:03 No Known Drug Allergies; hb - Home Meds: 18:04 lisinopril 30 mg Oral tab once daily [Active]; Hydrocodone-Acetaminophen Oral [Active]; hb - PMHx: 18:04 Alcoholism; Chronic pain; Hypertension; Pancreatitis; Cirrhosis; hb - PSHx: 18:04 Cholecystectomy; hb - Immunization history:: Adult Immunizations up to date. - Social history:: Smoking status: Patient reports the use of cigarette tobacco products, smokes one-half pack cigarettes per day, Patient uses alcohol, on a daily basis. ROS: 18:20 Constitutional: Negative for body aches, chills, fever, poor PO intake. cp 18:20 Eyes: Negative for injury, pain, redness, and discharge. cp 18:20 ENT: Negative for ear pain, sore throat, difficulty swallowing, difficulty handling cp secretions. 18:20 Cardiovascular: Negative for chest pain, palpitations. 18:20 Respiratory: Positive for shortness of breath, on exertion. Negative for cough, wheezing. 18:20 Abdomen/GI: Positive for abdominal pain, abdominal distension, Negative for vomiting, diarrhea, constipation, black/tarry stool, rectal bleeding. 18:20 Back: Negative for pain at rest, pain with movement. 18:20 : Negative for urinary symptoms. 18:20 Neuro: Negative for altered mental status, dizziness, headache, syncope, weakness. 18:20 All other systems are negative. Exam: 18:22 ECG was reviewed by the Attending Physician. cp 18:25 Constitutional: The patient appears in no acute distress, alert, awake, cp non-diaphoretic, non-toxic, well developed, well nourished. 18:25 Head/Face: Normocephalic, atraumatic. cp 18:25 Eyes: Periorbital structures: appear normal, Conjunctiva: normal, no exudate, no injection, Sclera: no appreciated abnormality, Lids and lashes: appear normal, bilaterally. 18:25 ENT: External ear(s): are unremarkable, Nose: is normal, Mouth: Lips: moist, Oral mucosa: pink and intact, moist, Posterior pharynx: Airway: no evidence of obstruction, patent. 18:25 Neck: ROM/movement: is normal, is supple, without pain, no range of motions limitations. 18:25 Chest/axilla: Inspection: normal, Palpation: is normal, no crepitus, no tenderness. 18:25 Cardiovascular: Rate: tachycardic, Rhythm: regular, Edema: ankle edema, that is mild, JVD: is not appreciated. 18:25 Respiratory: the patient does not display signs of respiratory distress, Respirations: normal, no use of accessory muscles, no retractions, labored breathing, is not present, Breath sounds: are clear throughout, no decreased breath sounds, no stridor, no wheezing. 18:25 Abdomen/GI: Inspection: distension, that is moderate, Bowel sounds: active, all quadrants, Palpation: soft, in all quadrants, mild abdominal tenderness, in all quadrants, rebound tenderness, is not appreciated, involuntary guarding, is not appreciated. 18:25 Back: CVA tenderness, is absent. 18:25 Skin: cellulitis, is not appreciated, no rash present. 18:25 Neuro: Orientation: to person, place \T\ time. Mentation: is normal. Vital Signs: 18:00 BP 129 / 96; Pulse 125; Resp 22; Temp 98.2; Pulse Ox 98% on R/A; Pain 8/10; hb 19:18 BP 132 / 95; Pulse 113; Resp 18; Pulse Ox 98% on R/A; mg2 19:40 BP 142 / 85; Pulse 115; Resp 20; Temp 98; Pulse Ox 99% ; Pain 10/10; rr5 20:30 BP 125 / 80; Pulse 102; Resp 16; Pulse Ox 98% ; rr5 21:33 BP 109 / 66; Pulse 109; Resp 19; Pulse Ox 98% ; rr5 21:47 BP 100 / 84; Pulse 98; Resp 18; Temp 98; Pulse Ox 98% on R/A; mg2 MDM: 18:05 Patient medically screened. cp 19:00 Differential diagnosis: Anemia CHF exacerbation, Chronic Obstructive Pulmonary Disease cp Myocardial Infarction pneumonia, Pneumothorax pulmonary edema, Pulmonary Embolism. 21:38 Data reviewed: vital signs, nurses notes, lab test result(s), EKG, radiologic studies, cp CT scan, plain films. 21:38 Test interpretation: by ED physician or midlevel provider: ECG. 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 Response to treatment: the patient's symptoms have mildly improved after treatment, and as a result, I will discharge patient. ED course: VSS. Patient observed resting comfortably in exam room with no signs of respiratory distress. Will discharge to home for continued monitoring. 05/01 18:03 Order name: Basic Metabolic Panel [facility] 05/01 18:03 Order name: CBC with Diff; Complete Time: 18:56 [facility] 05/01 18:36 Interpretation: Normal except: RBC 3.28; HGB 12.3; HCT 35.6; MCV 108.5; MCH 37.5; BASO% cp 1.4. 05/01 18:03 Order name: LFT's; Complete Time: 18:56 [facility] 05/01 18:56 Interpretation: Normal except: AST 166; ALK 217; BILIT 1.2; BILID 0.8; ALB 2.7; GLOB cp 5.1; A/G 0.5. 05/01 18:03 Order name: Magnesium; Complete Time: 18:56 [facility] 05/01 18:57 Interpretation: Abnormal: MG 1.7. cp 05/01 18:03 Order name: NT PRO-BNP; Complete Time: 18:56 [facility] 05/01 18:03 Order name: PT-INR; Complete Time: 18:35 [facility] 05/01 18:03 Order name: Troponin (emerg Dept Use Only); Complete Time: 18:56 [facility] 05/01 18:03 Order name: Basic Metabolic Panel; Complete Time: 18:56 EDMS 05/01 18:57 Interpretation: Normal except: K 3.4; GLUC 116; BUN 3; GFR 60. 05/01 18:04 Order name: AMMONIA; Complete Time: 18:35 05/01 18:04 Order name: ETOH Level; Complete Time: 18:56 05/01 18:57 Interpretation: Abnormal: ETOH 78. cp 05/01 18:24 Order name: CBC Smear Scan; Complete Time: 18:56 EDMS 05/01 18:03 Order name: XRAY Chest (1 view); Complete Time: 18:56 [facility] 05/01 18:03 Order name: EKG; Complete Time: 18:04 [facility] 05/01 18:03 Order name: Cardiac monitoring; Complete Time: 18:17 [facility] 05/01 18:03 Order name: EKG - Nurse/Tech; Complete Time: 18:17 [facility] 05/01 18:03 Order name: IV Saline Lock; Complete Time: 18:17 [facility] 05/01 18:03 Order name: Labs collected and sent; Complete Time: 18:17 [facility] 05/01 18:03 Order name: O2 Per Protocol; Complete Time: 18:17 [facility] 05/01 18:03 Order name: O2 Sat Monitoring; Complete Time: 18:17 [facility] 05/01 19:33 Order name: COVID-19/FLU A+B; Complete Time: 20:35 EDKS 05/01 19:39 Order name: CT Abd/Pelvis - IV Contrast Only; Complete Time: 20:35 05/01 20:36 Interpretation: Report reviewed. cp EC:22 Rate is 115 beats/min. Rhythm is regular. MI interval is normal. QRS interval is cp normal. T waves are Inverted in lead aVR. Interpreted by me. Reviewed by me. Administered Medications: 18:59 CANCELLED (Physician Discretion): NS 0.9% 500 ml IV at bolus once cp 19:17 Drug: Banana Bag - (NS 0.9% 1000 ml, foLIC Acid 1 mg, Thiamine 100 mg, Multivitamin 1 mg2 amp) Route: IV; Rate: 1000 ml/hr; Site: right antecubital; 19:20 Drug: Potassium Effervescent Tablet 25 mEq Route: PO; rr5 20:20 Follow up: Response: No adverse reaction rr5 19:25 Drug: Magnesium Sulfate 1 grams Route: IVPB; Infused Over: 1 hrs; Site: right rr5 antecubital; 19:40 Drug: morphine 2 mg {Note: rass 0.} Route: IVP; Site: right antecubital; rr5 20:40 Follow up: Response: No adverse reaction; RASS: Alert and Calm (0) rr5 19:45 Drug: Ativan 0.5 mg Route: IVP; Site: right antecubital; rr5 20:45 Follow up: Response: No adverse reaction; RASS: Alert and Calm (0) rr5 Disposition: 05/02 14:04 Co-signature as Attending Physician, Tk Muse MD I agree with the assessment and kdr plan of care. Disposition: 05/01/20 21:39 Discharged to Home. Impression: Alcoholic cirrhosis of liver with ascites, Alcohol abuse. - Condition is Stable. - Discharge Instructions: Ascites, Alcohol Abuse and Nutrition, Alcoholic Liver Disease. - Medication Reconciliation Form, Thank You Letter, Antibiotic Education, Prescription Opioid Use form. - Follow up: Private Physician; When: 2 - 3 days; Reason: Recheck today's complaints. - Problem is chronic. - Symptoms have improved. Signatures: Dispatcher [employer] EDMS Tk Muse MD MD [facility] Artur Preciado PA PA cp Adrienne Cha RN RN Anshu Vu RN RN mg2 Semaj Peralta RN RN rr5 Corrections: (The following items were deleted from the chart) 05/01 18:47 18:09 CORONAVIRUS+MR.LAB.BRZ ordered. EDMS EDMS 18:47 18:09 Influenza Screen (A \T\ B)+BA.LAB.BRZ ordered. EDMS EDMS 18:56 18:56 Normal except: AST 166; ALK 217; BILIT 1.2; BILID 0.8; ALB 2.7; GLOB 5.1. cp cp 18:59 18:37 NS 0.9% 500 ml IV at bolus once ordered. cp cp 21:48 21:39 05/01/2020 21:39 Discharged to Home. Impression: Alcoholic cirrhosis of liver mg2 with ascites; Alcohol abuse. Condition is Stable. Forms are Medication Reconciliation Form, Thank You Letter, Antibiotic Education, Prescription Opioid Use. Follow up: Private Physician; When: 2 - 3 days; Reason: Recheck today's complaints. Problem is chronic. Symptoms have improved. cp
--- NOTE | 2020-05-01 21:39 | ER ---
Nurse's Notes [facility] Name: Jose Toussaint Age: 60 yrs Sex: Male : 1960 Arrival Date: 05/01/2020 Time: 17:59 Bed 6 Private MD: Diagnosis: Alcoholic cirrhosis of liver with ascites;Alcohol abuse Presentation: 05/01 18:00 Chief complaint: EMS states: Seen at [place] 2 days ago for abdominal swelling and hb SOB, reports it is getting worse. Hx of alcoholic cirrhosis, drank 2 double vodka drinks [employer]. Pt reported negative COVID test 2 days ago. Coronavirus screen: Client presents with at least one sign or symptom that may indicate coronavirus-19. Standard/surgical mask placed on the client. Provider contacted for isolation considerations. The client reports previous COVID testing was negative. Date of collection: April 29, 2020. Ebola Screen: No symptoms or risks identified at this time. Initial Sepsis Screen: Does the patient meet any 2 criteria? HR > 90 bpm. No. Patient's initial sepsis screen is negative. Does the patient have a suspected source of infection? No. Patient's initial sepsis screen is negative. Risk Assessment: Do you want to hurt yourself or someone else? Patient reports no desire to harm self or others. Onset of symptoms was April 29, 2020. 18:00 Method Of Arrival: EMS: [facility] 18:00 Acuity: SASHA 3 hb Triage Assessment: 18:04 General: Appears in no apparent distress. uncomfortable, Behavior is calm, cooperative. hb Pain: Pain currently is 8 out of 10 on a pain scale. EENT: No signs and/or symptoms were reported regarding the EENT system. Neuro: Level of Consciousness is awake, alert, obeys commands, Oriented to person, place, time, situation. Cardiovascular: Capillary refill < 3 seconds Patient's skin is warm and dry. Respiratory: Reports shortness of breath at rest Airway is patent Respiratory effort is even, unlabored, Respiratory pattern is regular, symmetrical, Breath sounds are clear bilaterally. Onset: The symptoms/episode began/occurred yesterday, the patient has moderate shortness of breath. GI: Reports bloating. : No signs and/or symptoms were reported regarding the genitourinary system. Derm: Skin is pink, warm \T\ dry. Musculoskeletal: No signs and/or symptoms reported regarding the musculoskeletal system. Historical: - Allergies: 18:03 No Known Drug Allergies; hb - Home Meds: 18:04 lisinopril 30 mg Oral tab once daily [Active]; Hydrocodone-Acetaminophen Oral [Active]; hb - PMHx: 18:04 Alcoholism; Chronic pain; Hypertension; Pancreatitis; Cirrhosis; hb - PSHx: 18:04 Cholecystectomy; hb - Immunization history:: Adult Immunizations up to date. - Social history:: Smoking status: Patient reports the use of cigarette tobacco products, smokes one-half pack cigarettes per day, Patient uses alcohol, on a daily basis. Screenin:10 Abuse screen: Denies threats or abuse. Denies injuries from another. Nutritional hb screening: No deficits noted. Tuberculosis screening: No symptoms or risk factors identified. Fall Risk None identified. Assessment: 18:10 General: see triage assessment.. hb 19:18 Reassessment: Patient appears in no apparent distress at this time. Patient and/or mg2 family updated on plan of care and expected duration. Pain level reassessed. Patient is alert, oriented x 3, equal unlabored respirations, skin warm/dry/pink. 19:30 General: Appears in no apparent distress. uncomfortable, Behavior is calm, cooperative, rr5 appropriate for age. 19:30 Pain: Complains of pain in abdomen Pain currently is 10 out of 10 on a pain scale. rr5 Quality of pain is described as aching, Pain began gradually, Is intermittent. Neuro: Level of Consciousness is awake, alert, obeys commands, Oriented to person, place, time, situation. Cardiovascular: Capillary refill < 3 seconds Patient's skin is warm and dry. Respiratory: Reports shortness of breath Airway is patent Respiratory effort is even, unlabored, Respiratory pattern is regular, symmetrical. GI: Abdomen is round distended, Reports lower abdominal pain, upper abdominal pain. : No signs and/or symptoms were reported regarding the genitourinary system. EENT: No signs and/or symptoms were reported regarding the EENT system. Derm: Skin is intact, is healthy with good turgor, Skin temperature is warm. Musculoskeletal: Circulation, motion, and sensation intact. Capillary refill < 3 seconds. 20:10 Reassessment: Patient appears in no apparent distress at this time. Patient is alert, rr5 oriented x 3, equal unlabored respirations, skin warm/dry/pink. send for CT scan abdomen. 21:20 Reassessment: Patient appears in no apparent distress at this time. Patient is alert, rr5 oriented x 3, equal unlabored respirations, skin warm/dry/pink. reassess by ED provider explained the results and recommendations. 21:48 Reassessment: Patient appears in no apparent distress at this time. discharge rr5 instruction given and explained. Vital Signs: 18:00 BP 129 / 96; Pulse 125; Resp 22; Temp 98.2; Pulse Ox 98% on R/A; Pain 8/10; hb 19:18 BP 132 / 95; Pulse 113; Resp 18; Pulse Ox 98% on R/A; mg2 19:40 BP 142 / 85; Pulse 115; Resp 20; Temp 98; Pulse Ox 99% ; Pain 10/10; rr5 20:30 BP 125 / 80; Pulse 102; Resp 16; Pulse Ox 98% ; rr5 21:33 BP 109 / 66; Pulse 109; Resp 19; Pulse Ox 98% ; rr5 21:47 BP 100 / 84; Pulse 98; Resp 18; Temp 98; Pulse Ox 98% on R/A; mg2 ED Course: 17:59 Patient arrived in ED. hb 18:01 Tk Muse MD is Attending Physician. kdr 18:02 Triage completed. hb 18:03 Artur Preciado PA is PHCP. cp 18:10 Inserted saline lock: 20 gauge in left antecubital area, using aseptic technique. Blood sv collected. Flushed left antecubital with 5 ml normal saline. 18:10 Patient has correct armband on for positive identification. Bed in low position. Call hb light in reach. Side rails up X 1. 18:15 Arm band placed on. hb 18:17 Adrienne Cha, RN is Primary Nurse. hb 18:17 Basic Metabolic Panel Sent. sv 18:20 EKG done, by ED staff, reviewed by Artur CESPEDES. dh3 18:39 XRAY Chest (1 view) In Process Unspecified. EDMS 19:24 Primary Nurse role handed off by Adrienne Cha, RN mw2 19:32 Semaj Peralta, HEIDI is Primary Nurse. rr5 20:22 CT Abd/Pelvis - IV Contrast Only In Process Unspecified. EDMS 21:47 No provider procedures requiring assistance completed. IV discontinued, intact, mg2 bleeding controlled, No redness/swelling at site. Pressure dressing applied. Administered Medications: 18:59 CANCELLED (Physician Discretion): NS 0.9% 500 ml IV at bolus once cp 19:17 Drug: Banana Bag - (NS 0.9% 1000 ml, foLIC Acid 1 mg, Thiamine 100 mg, Multivitamin 1 mg2 amp) Route: IV; Rate: 1000 ml/hr; Site: right antecubital; 19:20 Drug: Potassium Effervescent Tablet 25 mEq Route: PO; rr5 20:20 Follow up: Response: No adverse reaction rr5 19:25 Drug: Magnesium Sulfate 1 grams Route: IVPB; Infused Over: 1 hrs; Site: right rr5 antecubital; 19:40 Drug: morphine 2 mg {Note: rass 0.} Route: IVP; Site: right antecubital; rr5 20:40 Follow up: Response: No adverse reaction; RASS: Alert and Calm (0) rr5 19:45 Drug: Ativan 0.5 mg Route: IVP; Site: right antecubital; rr5 20:45 Follow up: Response: No adverse reaction; RASS: Alert and Calm (0) rr5 Outcome: 21:39 Discharge ordered by MD. cp 21:47 Discharged to home ambulatory. mg2 21:47 Condition: stable 21:47 Discharge instructions given to patient, Instructed on discharge instructions, follow up and referral plans. Demonstrated understanding of instructions, follow-up care. 21:48 Patient left the ED. mg2 Signatures: Dispatcher [employer] EDMS Rosaura London RN RN sv Rittger, Kevin, MD MD kdr Page, Corey, PA PA cp Adrienne Cha, RN RN Martha Rader [facility] [place] 2 Anshu Vu RN RN mg2 Semaj Peralta RN RN rr5 Corrections: (The following items were deleted from the chart) 18:47 18:46 CORONAVIRUS+MR.LAB.BRZ drawn and sent. [facility] EDMS 18:47 18:46 Influenza Screen (A \T\ B)+BA.LAB.BRZ drawn and sent. [facility] EDMS 19:46 19:46 BP 142 / 85; Pulse 115bpm; Resp 20bpm; Pulse Ox 99%; Temp 98F; Pain 10/; rr5 rr5
[2020-05-01 21:58] VITALS: TEMP 98
[2020-05-01 21:59] VITALS: O2SAT 98
[2020-05-01 22:01] VITALS: BP 100/84
== END 2020-05-01 21:48 | disposition home or self-care (01) ==
LOC: ER 17:53
DX: K70.31 Alcoholic cirrhosis of liver with ascites (principal); F10.20 Alcohol dependence, uncomplicated; Z20.822 Contact with and (suspected) exposure to COVID-19; I10 Essential (primary) hypertension; F17.210 Nicotine dependence, cigarettes, uncomplicated
CPT/HCPCS: 93005; 85025; 80048; 36415; 80320; 82140; 83735; 85610; 80076; 84484; 83880; 0240U; 74177; 71045; 96375; 96374; 99284; Q9967; J3475; J2270; J7030